=== PATIENT | female | born 1945 | race Caucasian/White ===

== ENCOUNTER 2016-09-22 11:41 | Inpatient (IN) | payer OTHER, MEDICARE ==
[~2016-09-22] VITALS: Ht 167.6 cm; Wt 104.8 kg
[~2016-09-22 11:41] MED LIST: PREG100 PO; TRAM50 PO
[2016-09-22 11:43] VITALS: BP 132/78; PULSE 78; RESP 20; TEMP 97.5; O2SAT 93
[2016-09-22 16:55] LABS: AUTOMATED NEUTROPHIL # 10.5 TH/MM3 (1.8-7.7); BASOPHIL # 0.1 TH/MM3 (0-0.2); BASOPHIL % 0.4 % (0.0-2.0); EOSINOPHIL % 0.1 % (0.0-4.0); HEMATOCRIT 42.7 % (35.0-46.0); HEMO FLAGS DIFF FINAL; LYMPH % 13.7 % (9.0-44.0); MEAN CELL VOLUME 89.1 FL (80.0-100.0); MEAN CORPUSCULAR HEMOGLOBIN 29.7 PG (27.0-34.0); MEAN CORPUSCULAR HGB CONC 33.4 % (32.0-36.0); MONO % 11.9 % (0.0-8.0); NEUT % 73.9 % (16.0-70.0); PLATELET COUNT 274 TH/MM3 (150-450); RED BLOOD COUNT 4.79 MIL/MM3 (4.00-5.30); RED CELL DISTRIBUTION WIDTH 14.1 % (11.6-17.2); WHITE BLOOD COUNT 14.3 TH/MM3 (4.0-11.0)
[2016-09-22 17:02] LABS: ANION GAP 13 MEQ/L (5-15); AST (GOT) 38 U/L (15-37); BICARBONATE 18.7 MEQ/L (21.0-32.0); BLOOD UREA NITROGEN 21 MG/DL (7-18); CHLORIDE 95 MEQ/L (98-107); GLOMERULAR FILTRATION RATE 93 ML/MIN (>89); POTASSIUM 3.4 MEQ/L (3.5-5.1); SODIUM (NA) 127 MEQ/L (136-145)
[2016-09-22 17:05] LABS: ALKALINE PHOSPHATASE 74 U/L (45-117); ALT (GPT) 42 U/L (10-53)
[2016-09-22 17:12] LABS: BLOOD, URINE NEG (NEG); COMMENT (UR) CULTURE INDICATED; CULTURE IF INDICATED CULTURE INDICATED; GLUCOSE,URINE NEG (NEG); KETONE, URINE 10 mg/dL (NEG); MUCUS URINE FEW /lpf (OCC); NITRITE,URINE NEG (NEG); SQUAMOUS EPITHELIAL CELL URINE <1 /hpf (0-5); URINE COLOR YELLOW (YELLW/STRAW)
--- NOTE | 2016-09-22 21:52 | PD ---
HPI Chief Complaint: Psychiatric Symptoms Time Seen by Provider: 21:52 Travel History International Travel<30 days: No Contact w/Intl Traveler<30days: No Traveled to known affect area: No History of Present Illness HPI 71-year-old female with history of schizophrenia, currently not taking any medication, presents to emergency department with a family member for evaluation of hallucinations and panic attacks. Patient states that she has been seeing people that she knows are not there. She insists that four people came into her home last evening. The man with her tells me that they have even placed cameras in her house to prove to her that these people are not coming in. He states she has episodes like this intermittently. Patient states she has been watching "[employer]" and feels as though she is "in the movie." She has been having what she terms panic attacks where she becomes short of breath and has a chest pressure. She states they come out of nowhere. Denies any pain associated with this. Patient denies any illicit drug use. Does not smoke tobacco cigarettes. Does have occasional alcohol consumption. Denies any recent illnesses, fever, chills. No other symptoms to report this time. [facility] Past Medical History Psychiatric: Yes Social History Alcohol Use: Yes Tobacco Use: No Substance Use: No Allergies-Medications (Allergen,Severity, Reaction): Coded Allergies: Codeine (Verified Allergy, Severe, 09/22/16) Reported Meds & Prescriptions Reported Meds & Active Scripts Active No Active Prescriptions or Reported Medications Review of Systems Except as stated in HPI: all other systems reviewed are Neg Physical Exam Narrative GENERAL: Well-nourished female patient, in no acute distress. Patient does seem a bit anxious and worried. She is not certain why she is here one moment and then she does remember why she is here. She is most of the time oriented 3. SKIN: Warm and dry. HEAD: Atraumatic. Normocephalic. EYES: Pupils equal and round. No scleral icterus. No injection or drainage. ENT: No nasal bleeding or discharge. Mucous membranes pink and moist. NECK: Trachea midline. No JVD. CARDIOVASCULAR: Regular rate and rhythm. No murmur appreciated. RESPIRATORY: No accessory muscle use. Clear to auscultation. Breath sounds equal bilaterally. GASTROINTESTINAL: Abdomen soft, non-tender, nondistended. Hepatic and splenic margins not palpable. MUSCULOSKELETAL: No obvious deformities. No clubbing. No cyanosis. No edema. NEUROLOGICAL: Awake and alert. No obvious cranial nerve deficits. Motor grossly within normal limits. PSYCHIATRIC: Anxious mood. Data Data Last Documented VS Vital Signs Date Time Temp Pulse Resp B/P Pulse Ox O2 Delivery O2 Flow Rate FiO2 09/22/16 22:18 20 20 09/22/16 22:18 147/74 98 Room Air 09/22/16 11:43 97.5 Orders Complete Blood Count With Diff (09/22/16 16:08) Comprehensive Metabolic Panel (09/22/16 16:08) Urinalysis - C+S If Indicated (09/22/16 16:08) Urine Culture (09/22/16 16:19) Iv Access Insert/Monitor (09/22/16 21:50) Sodium Chlor 0.9% 1000 Ml Inj (Ns 1000 M (09/22/16 22:00) Ceftriaxone Inj (Rocephin Inj) (09/22/16 22:00) Psych Screen (09/22/16 21:50) Thyroid Stimulating Hormone (09/22/16 22:00) Electrocardiogram (09/22/16 22:00) Ckmb (Isoenzyme) Profile (09/22/16 22:00) D-Dimer (09/22/16 22:00) Troponin I (09/22/16 22:00) Chest, Single Ap (09/22/16 22:00) Lorazepam (Ativan) (09/22/16 22:15) CKMB (09/22/16 16:19) CKMB% (09/22/16 16:19) Ct Brain W/O Iv Contrast(Rout) (09/22/16 ) Aspirin Chew (Aspirin Chew) (09/22/16 23:30) Admit Order (Ed Use Only) (09/23/16 00:49) Consult Neurosurgery (09/23/16 ) Labs Laboratory Tests Test 09/22/16 09/22/16 16:19 23:15 White Blood Count 14.3 TH/MM3 Red Blood Count 4.79 MIL/MM3 Hemoglobin 14.2 GM/DL Hematocrit 42.7 % Mean Corpuscular Volume 89.1 FL Mean Corpuscular Hemoglobin 29.7 PG Mean Corpuscular Hemoglobin 33.4 % Concent Red Cell Distribution Width 14.1 % Platelet Count 274 TH/MM3 Mean Platelet Volume 8.9 FL Neutrophils (%) (Auto) 73.9 % Lymphocytes (%) (Auto) 13.7 % Monocytes (%) (Auto) 11.9 % Eosinophils (%) (Auto) 0.1 % Basophils (%) (Auto) 0.4 % Neutrophils # (Auto) 10.5 TH/MM3 Lymphocytes # (Auto) 2.0 TH/MM3 Monocytes # (Auto) 1.7 TH/MM3 Eosinophils # (Auto) 0.0 TH/MM3 Basophils # (Auto) 0.1 TH/MM3 CBC Comment DIFF FINAL Differential Comment Urine Color YELLOW Urine Turbidity CLEAR Urine pH 6.0 Urine Specific [place] 1.026 Urine Protein 30 mg/dL Urine Glucose (UA) NEG mg/dL Urine Ketones 10 mg/dL Urine Occult Blood NEG Urine Nitrite NEG Urine Bilirubin NEG Urine Urobilinogen LESS THAN 2.0 MG/DL Urine Leukocyte Esterase TRACE Urine RBC 2 /hpf Urine WBC 12 /hpf Urine Squamous Epithelial <1 /hpf Cells Urine Mucus FEW /lpf Microscopic Urinalysis Comment CULTURE INDICATED Sodium Level 127 MEQ/L Potassium Level 3.4 MEQ/L Chloride Level 95 MEQ/L Carbon Dioxide Level 18.7 MEQ/L Anion Gap 13 MEQ/L Blood Urea Nitrogen 21 MG/DL Creatinine 0.63 MG/DL Estimat Glomerular Filtration 93 ML/MIN Rate Random Glucose 117 MG/DL Calcium Level 9.0 MG/DL Total Bilirubin 1.0 MG/DL Aspartate Amino Transf 38 U/L (AST/SGOT) Alanine Aminotransferase 42 U/L (ALT/SGPT) Alkaline Phosphatase 74 U/L Total Creatine Kinase 421 U/L Creatine Kinase MB 15.1 NG/ML Creatine Kinase MB % 3.6 % Troponin I 1.40 NG/ML Total Protein 7.6 GM/DL Albumin 3.8 GM/DL Thyroid Stimulating Hormone 1.850 uIU/ML 3rd Gen D-Dimer Quantitative (PE/DVT) 0.68 MG/L FEU [facility] Medical Decision Making Medical Screen Exam Complete: Yes Emergency Medical Condition: Yes Medical Record Reviewed: Yes Differential Diagnosis Mood disorder versus personality disorder versus substance abuse versus electrolyte abnormality versus cardiac etiology versus intracranial etiology Narrative Course 71-year-old female presents to the emergency department for evaluation of panic attacks and hallucinations. Patient appears without distress. Her vital signs are stable. Neuro exam is nonfocal. Patient does have what she calls a panic attack in front of me where she gasps for air and conscious her chest. It is brief. I discussed the patient maintain physician and feel that a cardiac workup is essential prior to medical clearance for psychiatric screening. CBC is with mild leukocytosis of 14.3. CMP is with moderate hyponatremia of 127. BUN is 21. Troponin is 1.4. TSH is 1.85. D-dimer is 0.68. I discussed the patient again with my attending. She has conversed with cardiology and he advises to treat medically. Prior to starting heparin, we'll CT the patient's brain. CT imaging shows a small focal hemorrhage involving the right temporal lobe with prominent vasogenic edema. Underlying neoplasm cannot be excluded. MRI is recommended for further evaluation. Discussed the patient with Dr. Ibrahim. He requests admission to critical care with a consult placed to him. I discussed the patient with Dr. Butts. Patient will be admitted to the critical care service. Diagnosis Primary Impression: Hemorrhage of right temporal lobe Additional Impressions: Hallucination Hyponatremia Elevated troponin Admitting Information Admitting Physician Requests: Admit Scripts No Active Prescriptions or Reported Meds Condition: Stable Crys Martin Sep 22, 2016 21:52
[2016-09-22] MEDS ORDERED: SODIUM CHLOR 0.9% 1000 ML INJ 1,000 ML IV ONE (22:00)
[2016-09-22] MEDS ORDERED: cefTRIAXone INJ 1,000 MG in SODIUM CHLORIDE 0.9% INJ 100 ML IV ONE (22:00)
[2016-09-22] MEDS ORDERED: LORazepam 1 MG TAB PO ONE (22:15)
--- NOTE | 2016-09-22 22:17 | RADRPT ---
EXAM DATE/TIME: 09/22/2016 22:09 [facility] COMPARISON: No previous studies available for comparison. INDICATIONS : Chest pains. MEDICAL HISTORY : None. SURGICAL HISTORY : None. ENCOUNTER: Initial ACUITY: 1 week PAIN SCORE: 7/10 LOCATION: Bilateral chest FINDINGS: A single view of the chest demonstrates the lungs to be symmetrically aerated without evidence of mas s, infiltrate or effusion. The cardiomediastinal contours are unremarkable. Osseous structures are intact. CONCLUSION: No acute disease. Bon Garcia MD on September 22, 2016 at 22:16 Board Certified Radiologist. This report was verified electronically.
[2016-09-22 22:18] VITALS: BP 147/74; PULSE 77; RESP 22; O2SAT 98
[2016-09-22] MEDS ORDERED: ASPIRIN 81 MG CHEW TAB CHEW ONE (23:30)
[2016-09-22 23:41] LABS: CKMB 15.1 NG/ML (0.5-3.6)
--- NOTE | 2016-09-22 23:55 | PD ---
Physical Exam Narrative I, Dr. Murphy, have reviewed the advance practice practitioner's documentation and am in agreement, met with the patient face to face, made the diagnosis, and the medical decision making was done by me. *My assessment and Findings: Patient is a 71-year-old female who comes in because she has been having panic attacks and hallucinations. She believes people have been in her house uninvited. She says she has been feeling very anxious, and had some pressure in her chest. She also says she has felt knots in her stomach. Currently she denies any chest pain. Patient was very anxious on arrival, she is given Ativan. She is alert and oriented 3. Heart is regular in rate and rhythm, lungs are clear to auscultation. Data Data Last Documented VS Vital Signs Date Time Temp Pulse Resp B/P Pulse Ox O2 Delivery O2 Flow Rate FiO2 09/22/16 22:18 20 20 09/22/16 22:18 147/74 98 Room Air 09/22/16 11:43 97.5 Orders Complete Blood Count With Diff (09/22/16 16:08) Comprehensive Metabolic Panel (09/22/16 16:08) Urinalysis - C+S If Indicated (09/22/16 16:08) Urine Culture (09/22/16 16:19) Iv Access Insert/Monitor (09/22/16 21:50) Sodium Chlor 0.9% 1000 Ml Inj (Ns 1000 M (09/22/16 22:00) Ceftriaxone Inj (Rocephin Inj) (09/22/16 22:00) Psych Screen (09/22/16 21:50) Thyroid Stimulating Hormone (09/22/16 22:00) Electrocardiogram (09/22/16 22:00) Ckmb (Isoenzyme) Profile (09/22/16 22:00) D-Dimer (09/22/16 22:00) Troponin I (09/22/16 22:00) Chest, Single Ap (09/22/16 22:00) Lorazepam (Ativan) (09/22/16 22:15) CKMB (09/22/16 16:19) CKMB% (09/22/16 16:19) Ct Brain W/O Iv Contrast(Rout) (09/22/16 ) Aspirin Chew (Aspirin Chew) (09/22/16 23:30) Admit Order (Ed Use Only) (09/23/16 00:49) Consult Neurosurgery (09/23/16 ) Labs Laboratory Tests Test 09/22/16 09/22/16 16:19 23:15 White Blood Count 14.3 TH/MM3 Red Blood Count 4.79 MIL/MM3 Hemoglobin 14.2 GM/DL Hematocrit 42.7 % Mean Corpuscular Volume 89.1 FL Mean Corpuscular Hemoglobin 29.7 PG Mean Corpuscular Hemoglobin 33.4 % Concent Red Cell Distribution Width 14.1 % Platelet Count 274 TH/MM3 Mean Platelet Volume 8.9 FL Neutrophils (%) (Auto) 73.9 % Lymphocytes (%) (Auto) 13.7 % Monocytes (%) (Auto) 11.9 % Eosinophils (%) (Auto) 0.1 % Basophils (%) (Auto) 0.4 % Neutrophils # (Auto) 10.5 TH/MM3 Lymphocytes # (Auto) 2.0 TH/MM3 Monocytes # (Auto) 1.7 TH/MM3 Eosinophils # (Auto) 0.0 TH/MM3 Basophils # (Auto) 0.1 TH/MM3 CBC Comment DIFF FINAL Differential Comment Urine Color YELLOW Urine Turbidity CLEAR Urine pH 6.0 Urine Specific [place] 1.026 Urine Protein 30 mg/dL Urine Glucose (UA) NEG mg/dL Urine Ketones 10 mg/dL Urine Occult Blood NEG Urine Nitrite NEG Urine Bilirubin NEG Urine Urobilinogen LESS THAN 2.0 MG/DL Urine Leukocyte Esterase TRACE Urine RBC 2 /hpf Urine WBC 12 /hpf Urine Squamous Epithelial <1 /hpf Cells Urine Mucus FEW /lpf Microscopic Urinalysis Comment CULTURE INDICATED Sodium Level 127 MEQ/L Potassium Level 3.4 MEQ/L Chloride Level 95 MEQ/L Carbon Dioxide Level 18.7 MEQ/L Anion Gap 13 MEQ/L Blood Urea Nitrogen 21 MG/DL Creatinine 0.63 MG/DL Estimat Glomerular Filtration 93 ML/MIN Rate Random Glucose 117 MG/DL Calcium Level 9.0 MG/DL Total Bilirubin 1.0 MG/DL Aspartate Amino Transf 38 U/L (AST/SGOT) Alanine Aminotransferase 42 U/L (ALT/SGPT) Alkaline Phosphatase 74 U/L Total Creatine Kinase 421 U/L Creatine Kinase MB 15.1 NG/ML Creatine Kinase MB % 3.6 % Troponin I 1.40 NG/ML Total Protein 7.6 GM/DL Albumin 3.8 GM/DL Thyroid Stimulating Hormone 1.850 uIU/ML 3rd Gen D-Dimer Quantitative (PE/DVT) 0.68 MG/L FEU [facility] Supervised Visit with ALYCIA: Yes Interpretation(s) ECG shows normal sinus rhythm at 67. There is ST elevation in lead V2 of 2.5 mm. There is slight elevation of V1 and V3 of only 0.5 mm. Narrative Course Patient is a 71-year-old female who comes in due to hallucinations. She has also been having panic attacks and pressure in her chest. IV established, labs sent. Labs concerning for sodium of 127. Troponin is elevated to 1.4. Patient given aspirin. I spoke with Dr. Pyle regarding the patient and showed him the EKG. He advises medical management at this time. CT head performed shows small hemorrhage with large edema. Heparin held. Dr. Ibrahim of neurosurgery consulted. Patient admitted to ICU for further management. Admitting Information Admitting Physician Requests: Admit Scripts No Active Prescriptions or Reported Meds Lorna Murphy MD Sep 22, 2016 23:55
[2016-09-23] VITALS (12 sets, daily range): BP systolic 108–131; BP diastolic 59–87; PULSE 59–118; RESP 18–24; TEMP 97.4–98.3; O2SAT 94–100
--- NOTE | 2016-09-23 00:19 | RADRPT ---
EXAM DATE/TIME: 09/22/2016 23:33 [facility] COMPARISON: No previous studies available for comparison. INDICATIONS : Hallucinations RADIATION DOSE: 56.35 CTDIvol (mGy) MEDICAL HISTORY : Schizophrenic. SURGICAL HISTORY : Tonsillectomy. Hysterectomy. ENCOUNTER: Initial ACUITY: 1 day PAIN SCALE: 0/10 LOCATION: Bilateral cranial TECHNIQUE: Multiple contiguous axial images were obtained of the head. Using automated exposure control and adj ustment of the mA and/or kV according to patient size, radiation dose was kept as low as reasonably a chievable to obtain optimal diagnostic quality images. FINDINGS: There is vasogenic edema involving the right temporal lobe extending into the right occipital lobe wi th small focal area of hemorrhage measuring no more than 5 mm in diameter into discrete locations in the temporal lobe. There is mass effect on the atrium of the right lateral ventricle. The overall are a of edema measures 6 CM by 3 CM. There are no signs of herniation. Posterior fossa structures are unremarkable. Large cisterna magna is present. CONCLUSION: 1. Small focal hemorrhage involving the right temporal lobe with prominent vasogenic edema. Underlyin g neoplasm is not excluded. MRI is recommended for further evaluation if clinically indicated. Benitez Choudhury MD on September 23, 2016 at 0:15 Board Certified Radiologist. This report was verified electronically.
--- NOTE | 2016-09-23 02:50 | HHI.HP ---
HPI Service Critical Care Medicine Primary Care Physician Unknown Admission Diagnosis AMS; ICH; elevated troponin; hyponatremia; schizoeffective Diagnosis: Travel History International Travel<30 Days: No Contact w/Intl Traveler <30 Da: No Traveled to Known Affected Are: No History of Present Illness 71-year-old female who reportedly was diagnosed with schizophrenia but who does not take any medications chronically presented to [facility] with one week history of paranoia and hallucinations. She said she believed people were coming into her house uninvited. She drove to her ex-daughter in-laws house and this woman's new was there and tried to redirect her as she reportedly has a h/o intermittent paranoid delusions. He took her back to her home yesterday but she was having intermittent episodes of panic so she was brought in for psychiatry evaluation. While doing psychiatric clearance, ED [employer] and physician discovered that she had elevated troponin of 1.4 with normal CKMB fraction. Creatinine is normal at 0.63. Case was discussed with cardiology who recommended medical management including heparin. Before initiation of heparin, CT brain was obtained. This demonstrated small focal hemorrhage in right temporal lobe with large amount of vasogenic edema (without shift). Patient states she has had a bifrontal headache for about a week. No n/v/ seizures. She does state that she falls frequently (2-3 times in last 2 months) but denies head trauma. She states she has noticed some left leg weakness for about a week and she states she fell in [facility] about a week ago due to leg weakness. She has noticed some decreased sensation on the left leg as well. She denies any changes in vision or speech. She does have dysarthric speech, but she states this is chronic. She states she has been having intermittent "panic attacks" with episodes of SOB and discomfort in her chest. She states this improves when her family tries to calm her down. She denies exertional CP/ SOB or hemoptysis. She has noticed BLE pedal edema ~ 1 week. She denies prior h/ o stroke. States she saw Dr. Antonio with neurology in the past. She has atrial fibrillation but denies having been on anticoagulation Review of Systems Cardiovascular: COMPLAINS OF: Chest pain, Lower Extremity Edema Neurologic: COMPLAINS OF: Headache, Localized weakness, Poor Balance Psychiatric: COMPLAINS OF: Anxiety, Hallucinations, Delusions Past Family Social History Allergies: Coded Allergies: Codeine (Verified Allergy, Severe, 09/22/16) Past Medical History Schizophrenia - she states she was diagnosed in but has never been compliant with meds. Tobacco abuse Codeine intolerancecauses vomiting Past Surgical History face lift BTL Total hysterectomy Reported Medications She states she is not on any medications Family History Father of an [place] at age 95 Paternal grandmother had gastric cancer in her 60s. No other family history of cancer. No family history of stroke Social History She states that she smoked 3 packs of cigarettes per day since she was age 10. She states she quit in 1993. Denies use of alcohol or illicit drugs She lives alone Physical Exam Vital Signs Vital Signs Date Time Temp Pulse Resp B/P Pulse Ox O2 Delivery O2 Flow Rate FiO2 09/22/16 22:18 20 20 09/22/16 22:18 77 22 147/74 98 Room Air 09/22/16 11:43 97.5 78 20 132/78 93 Room Air Physical Exam Temp 97.5 pulse 116 respirations 20 blood pressure 108/87 sats 99% on room air GENERAL: Well-nourished, well-developed patient who is sitting up in ED [facility] , conversant, intermittently appears paranoid and begins breathing fast. SKIN: Warm and dry. HEAD: Atraumatic. Normocephalic. EYES: Pupils equal and round, 4mm reactive bilaterally to 2 mm.. No scleral icterus. No injection or drainage. ENT: No nasal bleeding or discharge. Mucous membranes pink and moist. NECK: Trachea midline. No JVD. CARDIOVASCULAR: irregularly irregular, tachycardic 120s to 130s. No murmurs rubs or gallops. RESPIRATORY: No accessory muscle use. Clear to auscultation. Breath sounds equal bilaterally. On RA. GASTROINTESTINAL: Abdomen soft, non-tender, nondistended. Bowel sounds present MUSCULOSKELETAL: Extremities without clubbing, cyanosis. Bipedal edema ~1+ NEUROLOGICAL: Awake and alert, able to answer questions of orientation appropriately. No facial droop. Sensation intact on face, normal tongue protrusion, EOMI. Visual field defect to confrontation in her left visual field. Strength 5/5 BUE. No pronator drift. LLE 4+/5 plantar and dorsiflexion. RLE 5/5 strength.Sensation intact. Babinski tickles and she moves her foot, no abnormal reflex. PSYCH: PAranoid delusions of people coming into her home uninvited.+ Hallucinations. Denies SI/HI. Laboratory Laboratory Tests Test 09/22/16 09/22/16 16:19 23:15 White Blood Count 14.3 Red Blood Count 4.79 Hemoglobin 14.2 Hematocrit 42.7 Mean Corpuscular Volume 89.1 Mean Corpuscular Hemoglobin 29.7 Mean Corpuscular Hemoglobin 33.4 Concent Red Cell Distribution Width 14.1 Platelet Count 274 Mean Platelet Volume 8.9 Neutrophils (%) (Auto) 73.9 Lymphocytes (%) (Auto) 13.7 Monocytes (%) (Auto) 11.9 Eosinophils (%) (Auto) 0.1 Basophils (%) (Auto) 0.4 Neutrophils # (Auto) 10.5 Lymphocytes # (Auto) 2.0 Monocytes # (Auto) 1.7 Eosinophils # (Auto) 0.0 Basophils # (Auto) 0.1 CBC Comment DIFF FINAL Differential Comment Urine Color YELLOW Urine Turbidity CLEAR Urine pH 6.0 Urine Specific [place] 1.026 Urine Protein 30 Urine Glucose (UA) NEG Urine Ketones 10 Urine Occult Blood NEG Urine Nitrite NEG Urine Bilirubin NEG Urine Urobilinogen LESS THAN 2.0 Urine Leukocyte Esterase TRACE Urine RBC 2 Urine WBC 12 Urine Squamous Epithelial <1 Cells Urine Mucus FEW Microscopic Urinalysis Comment CULTURE INDICATED Sodium Level 127 Potassium Level 3.4 Chloride Level 95 Carbon Dioxide Level 18.7 Anion Gap 13 Blood Urea Nitrogen 21 Creatinine 0.63 Estimat Glomerular Filtration 93 Rate Random Glucose 117 Calcium Level 9.0 Total Bilirubin 1.0 Aspartate Amino Transf 38 (AST/SGOT) Alanine Aminotransferase 42 (ALT/SGPT) Alkaline Phosphatase 74 Total Creatine Kinase 421 Creatine Kinase MB 15.1 Creatine Kinase MB % 3.6 Troponin I 1.40 Total Protein 7.6 Albumin 3.8 Thyroid Stimulating Hormone 1.850 3rd Gen D-Dimer Quantitative (PE/DVT) 0.68 Date/Time Procedure Status Source Growth 09/22/16 16:19 Urine Culture Received Urine Clean Catch Pending Result Diagram: 09/22/16 1619 09/22/16 1619 Assessment and Plan Assessment and Plan NEURO: Acute R temporal lobe hemorrhage with edema. Schizophrenia Anxiety Obtain lipids/HgbA1c, Echo. Unclear if this represents subacute stroke with secondary hemorrhage. ? Underlying mass with vasogenic edema. Will check MRI/MRA brain. She clinically seems relatively stable with subacute symptoms. Consider decadron if e/o mass based on MRI. Maintain SBP <160 Dr. Ibrahim consulted. RESP: Tobacco abuse She is on room air CV: Atrial fibrillation Elevated troponin -?neurogenic She received aspirin 324 in the ED. Not a candidate further antiplatelets due to intracerebral hemorrhage. Cardizem drip for rate control of A fib Will use labetalol/hydralazine as needed to maintain systolic blood pressure less than 160. GI: Nothing by mouth. Speech therapy to evaluate swallow FEN/RENAL: Hyponatremia Hypokalemia She has received 1 L normal saline in the emergency department. Will follow-up sodium ID: ?UTI Urinalysis shows 12 WBCs and trace leukocyte esterase. She received Rocephin in the emergency department. Will continue Rocephin 1 g IV every 24 hours and follow up urine culture. HEME: Monitor CBC. Coags are normal D-dimer is elevated of unclear significance. She does have some pedal edema. Will check bilateral lower extremity ultrasound to evaluate for DVT. PE seems less likely, and she is not a candidate for anticoagulation at this time so will defer further imaging currently. ENDO: Check hemoglobin A1c. TSH is normal. Check random cortisol given her hyponatremia PROPH: SCDs and teds for DVT prophylaxis. Pharmacologic DVT prophylaxis contraindicated due to intracerebral hemorrhage. Protonix 40 mg IV daily for stress ulcer prophylaxis. ACCESS: Peripheral IV providing adequate access at this time. She is hyponatremic with vasogenic edema. We'll need to consider central venous line if she has worsening hyponatremia and in need of hypertonic fluids. Discussed with ED provider, Mario. Patient updated at bedside regarding current findings and plan of care. CCT 60 minutes exclusive of separately billable procedures. Isabel Butts MD Sep 23, 2016 02:50
[2016-09-23] MEDS ORDERED: MAGNESIUM SULFATE INJ 2 GM in SODIUM CHLORIDE 0.9% INJ 96 ML IV PRN (03:00)
[2016-09-23] MEDS ORDERED: POTASSIUM PHOSPHATE MONOBASIC 500 MG TAB PO/TUBE PRN (03:00)
[2016-09-23] MEDS ORDERED: GLUCAGON 1 MG/ML VIAL OTHER PRN (03:00)
[2016-09-23] MEDS ORDERED: POTASSIUM CHLOR 20 MEQ PREMIX 100 ML IV PRN (03:00)
[2016-09-23] MEDS ORDERED: POTASSIUM PHOSPHATE MONOBASIC 500 MG TAB PO PRN (03:00)
[2016-09-23] MEDS: INSULIN ASPART SUPPLEMENTAL SCALE SQ SCH ×6 (03:00→23:00)
[2016-09-23] MEDS ORDERED: SODIUM PHOSPHATE INJ 30 MMOL in SODIUM CHLOR 0.9% 250 ML INJ 240 ML IV PRN (03:00)
[2016-09-23] MEDS ORDERED: niCARdipine INJ 25 MG in SODIUM CHLOR 0.9% 250 ML INJ 250 ML IV SCH (03:00)
[2016-09-23] MEDS ORDERED: DEXTROSE 50% IN WATER 50 ML VIAL(D50) IV PUSH PRN (03:00)
[2016-09-23] MEDS ORDERED: MAGNESIUM SULFATE INJ 4 GM in SODIUM CHLORIDE 0.9% INJ 92 ML IV PRN (03:00)
[2016-09-23] MEDS ORDERED: MAGNESIUM OXIDE 400 MG TAB PO PRN (03:00)
[2016-09-23] MEDS ORDERED: POTASSIUM CL 40 MEQ/30 ML LIQ UDC PO/TUBE PRN ×2 (03:00)
[2016-09-23] MEDS ORDERED: POTASSIUM PHOSPHATE INJ 30 MMOL in SODIUM CHLOR 0.9% 250 ML INJ 250 ML IV PRN (03:00)
[2016-09-23] MEDS ORDERED: POTASSIUM CHLOR 40 MEQ PREMIX 100 ML IV PRN ×2 (03:00)
[2016-09-23] MEDS ORDERED: RESP: ALBUTEROL 2.5 MG/3 ML NEB (PRN) INH (03:30)
[2016-09-23] MEDS ORDERED: LORazepam 2 MG/ML VIAL IV PUSH PRN (03:30)
[2016-09-23] MEDS ORDERED: ONDANSETRON HCL 4 MG/2 ML VIAL IV PRN (03:30)
[2016-09-23] MEDS ORDERED: SODIUM CHLORIDE 0.9% FLUSH 5 ML FLUSH IV FLUSH PRN (03:30)
[2016-09-23] MEDS ORDERED: DILTIAZEM INJ 125 MG in SODIUM CHLORIDE 0.9% INJ 100 ML IV SCH (03:30)
[2016-09-23] MEDS ORDERED: DILTIAZEM HCL 25 MG/5 ML VIAL IVP ONE (03:30)
[2016-09-23] MEDS ORDERED: MISCELLANEOUS NURSING INFORMATION XX SCH (03:30)
[2016-09-23] MEDS ORDERED: CHLORHEXIDINE GLUCONATE 2 % 1 PACK (2 CLOTHS) TOP PRN (03:30)
[2016-09-23] MEDS ORDERED: LABETALOL HCL 100 MG/20 ML VIAL IV PUSH PRN (03:30)
[2016-09-23] MEDS: RESP: ALBUTEROL 2.5 MG/IPRATROPIUM 0.5 MG NEB (SCH) INH ×4 (03:58→20:12)
[2016-09-23] MEDS: CHLORHEXIDINE GLUCONATE 2 % 1 PACK (2 CLOTHS) TOP SCH (04:00)
[2016-09-23 04:01] LABS: AMPHETAMINE, URINE NEG (NEG); BARBITURATES, URINE NEG (NEG); COCAINE, URINE NEG (NEG)
[2016-09-23] MEDS: SODIUM CHLOR 0.9% 1000 ML INJ 1,000 ML IV SCH ×2 (04:20→22:14)
[2016-09-23] MEDS: POTASSIUM CHLOR 20 MEQ PREMIX 100 ML IV PRN (04:26)
[2016-09-23 04:28] LABS: BICARBONATE 23.8 MEQ/L (21.0-32.0); POTASSIUM 3.1 MEQ/L (3.5-5.1)
--- NOTE | 2016-09-23 08:24 | PD.CONS ---
(Dinh Ibrahim MD) HPI Consult Requested By Primary Care Physician Unknown (Dinh Ibrahim MD) Service NRS Consult Requested By ED Reason for Consult temporal hematoma History of Present Illness Ms. Bay is a 71 year old female who presented to [facility] with acute delirium. She had reported peopler were coming to her house, she was having panic attacks. She was brought to [place] by her family member. A CT Brain showed a small focal hemorrhage in right temporal lobe with large amount of vasogenic edema. No known history of brain masses or tumors. She also reports of recently having headaches, as well as some weakness on the left side. (Joanne Mariano) Review of Systems Constitutional: DENIES: Fever Eyes: DENIES: Diplopia Respiratory: DENIES: Apneas, Hemoptysis, Shortness of breath Cardiovascular: DENIES: Chest pain Neurologic: COMPLAINS OF: Headache, Localized weakness Psychiatric: COMPLAINS OF: Anxiety, Hallucinations (Joanne Mariano) Past Family Social History Allergies: Coded Allergies: Codeine (Verified Allergy, Severe, 09/22/16) Past Medical History Schizophrenia Atrial Fibrillation not on anticoagulation Reported Medications Current Medications Medications (Trade) Dose Ordered Sig/Hardeep Route PRN Reason Start Time Stop Time Status Last Admin Dose Admin Dextrose (D50w (Vial) Inj) 25 ml UNSCH PRN IV PUSH HYPOGLYCEMIA-SEE COMMENTS 09/23/16 03:00 Glucagon (Glucagon Inj) 1 mg UNSCH PRN OTHER HYPOGLYCEMIA-SEE COMMENTS 09/23/16 03:00 Insulin Aspart 1 1 Q4H SQ 09/23/16 03:00 Potassium Chloride 100 ml @ 50 mls/hr Q2H PRN IV For Potassium 2.8 - 3.2 mEq/L 09/23/16 03:00 Potassium Chloride (KCl 20 Meq Premix Inj) 100 ml @ 50 mls/hr Q2H PRN IV For Potassium 2.8 - 3.2 mEq/L 09/23/16 03:00 Potassium Chloride 40 meq 40 meq UNSCH PRN PO/TUBE For Potassium 3.3 - 3.5 mEq/L 09/23/16 03:00 Potassium Chloride 100 ml @ 25 mls/hr UNSCH PRN IV For Potassium 3.3 - 3.5 mEq/L 09/23/16 03:00 Potassium Chloride 100 ml @ 50 mls/hr Q2H PRN IV For Potassium 3.3 - 3.5 mEq/L 09/23/16 03:00 09/23/16 04:26 Magnesium Sulfate/ Sodium Chloride (Magnesium Sulfate Inj/NS Inj) 100 ml @ 50 mls/hr UNSCH PRN IV For Magnesium 0.9 - 1.1 mg/dL 09/23/16 03:00 Magnesium Oxide 800 mg 800 mg UNSCH PRN PO For Magnesium 1.2 - 1.6 mg/dL 09/23/16 03:00 Magnesium Sulfate/ Sodium Chloride (Magnesium Sulfate Inj/NS Inj) 100 ml @ 50 mls/hr UNSCH PRN IV For Magnesium 1.2 - 1.6 mg/dL 09/23/16 03:00 Potassium Phosphate 2000 mg 2,000 mg Q4H PRN PO For Phosphorus < 2.5 mg/dL 09/23/16 03:00 Sodium Phosphate/ Sodium Chloride (Sodium Phosphate Inj/NS 250 ml Inj) 250 ml @ 42 mls/hr UNSCH PRN IV For Phosphorus < 2.5 mg/dL 09/23/16 03:00 Potassium Chloride (KCl 40 Meq/30 ml Liq) 40 meq UNSCH PRN PO/TUBE SEE LABEL COMMENTS 09/23/16 03:00 Potassium Phosphate 2000 mg 2,000 mg UNSCH PRN PO/TUBE SEE LABEL COMMENTS 09/23/16 03:00 Potassium Phosphate 30 mmol/ Sodium Chloride 260 ml @ 42 mls/hr UNSCH PRN IV SEE LABEL COMMENTS 09/23/16 03:00 Diltiazem HCl 125 mg/Sodium Chloride 125 ml @ 0 mls/hr TITRATE IV 09/23/16 03:30 09/23/16 04:21 Ceftriaxone Sodium/Sodium Chloride (Rocephin Inj/NS Inj) 100 ml @ 200 mls/hr Q24H IV 09/23/16 22:00 Hydralazine HCl (Apresoline Inj) 10 mg Q4H PRN IV PUSH SBP >160 09/23/16 03:30 Labetalol HCl (Trandate Inj) 10 mg Q4H PRN IV PUSH SBP >160 09/23/16 03:30 Lorazepam (Ativan Inj) 0.5 mg Q4H PRN IV PUSH ANXIETY 09/23/16 03:30 Lorazepam 1 mg 1 mg ONCE PRN IV PUSH NEEDED FOR ANXIETY DURING MRI 09/23/16 03:30 09/24/16 03:29 09/23/16 09:27 Sodium Chloride (NS 1000 ml Inj) 1,000 ml @ 50 mls/hr Q20H IV 09/23/16 03:25 09/23/16 04:20 IV Flush (NS Flush) 2 ml UNSCH PRN IV FLUSH FLUSH AFTER USING IV ACCESS 09/23/16 03:30 IV Flush (NS Flush) 2 ml BID IV FLUSH 09/23/16 09:00 09/23/16 09:00 Pantoprazole Sodium (Protonix Inj) 40 mg DAILY IV 09/23/16 09:00 09/23/16 09:27 Ondansetron HCl (Zofran Inj) 4 mg Q6H PRN IV NAUSEA OR VOMITING 09/23/16 03:30 Miscellaneous Information 1 Q361D XX 09/23/16 03:30 Chlorhexidine Gluconate (Chlorhexidine 2% Cloth) 3 pack Taper DAILY@04 TOP 09/23/16 04:00 09/19/17 03:59 09/23/16 04:00 Chlorhexidine Gluconate (Chlorhexidine 2% Cloth) 3 pack UNSCH PRN TOP HYGIENIC CARE 09/23/16 03:30 Dexamethasone Sodium Phosphate (Decadron Inj) 10 mg Q6HR IV PUSH 09/23/16 13:15 09/23/16 13:46 Active Ordered Medications Current Medications Medications (Trade) Dose Ordered Sig/Hardeep Route PRN Reason Start Time Stop Time Status Last Admin Dose Admin Dextrose (D50w (Vial) Inj) 25 ml UNSCH PRN IV PUSH HYPOGLYCEMIA-SEE COMMENTS 09/23/16 03:00 Glucagon (Glucagon Inj) 1 mg UNSCH PRN OTHER HYPOGLYCEMIA-SEE COMMENTS 09/23/16 03:00 Insulin Aspart 1 1 Q4H SQ 09/23/16 03:00 Potassium Chloride 100 ml @ 50 mls/hr Q2H PRN IV For Potassium 2.8 - 3.2 mEq/L 09/23/16 03:00 Potassium Chloride (KCl 20 Meq Premix Inj) 100 ml @ 50 mls/hr Q2H PRN IV For Potassium 2.8 - 3.2 mEq/L 09/23/16 03:00 Potassium Chloride 40 meq 40 meq UNSCH PRN PO/TUBE For Potassium 3.3 - 3.5 mEq/L 09/23/16 03:00 Potassium Chloride 100 ml @ 25 mls/hr UNSCH PRN IV For Potassium 3.3 - 3.5 mEq/L 09/23/16 03:00 Potassium Chloride 100 ml @ 50 mls/hr Q2H PRN IV For Potassium 3.3 - 3.5 mEq/L 09/23/16 03:00 09/23/16 04:26 Magnesium Sulfate/ Sodium Chloride (Magnesium Sulfate Inj/NS Inj) 100 ml @ 50 mls/hr UNSCH PRN IV For Magnesium 0.9 - 1.1 mg/dL 09/23/16 03:00 Magnesium Oxide 800 mg 800 mg UNSCH PRN PO For Magnesium 1.2 - 1.6 mg/dL 09/23/16 03:00 Magnesium Sulfate/ Sodium Chloride (Magnesium Sulfate Inj/NS Inj) 100 ml @ 50 mls/hr UNSCH PRN IV For Magnesium 1.2 - 1.6 mg/dL 09/23/16 03:00 Potassium Phosphate 2000 mg 2,000 mg Q4H PRN PO For Phosphorus < 2.5 mg/dL 09/23/16 03:00 Sodium Phosphate/ Sodium Chloride (Sodium Phosphate Inj/NS 250 ml Inj) 250 ml @ 42 mls/hr UNSCH PRN IV For Phosphorus < 2.5 mg/dL 09/23/16 03:00 Potassium Chloride (KCl 40 Meq/30 ml Liq) 40 meq UNSCH PRN PO/TUBE SEE LABEL COMMENTS 09/23/16 03:00 Potassium Phosphate 2000 mg 2,000 mg UNSCH PRN PO/TUBE SEE LABEL COMMENTS 09/23/16 03:00 Potassium Phosphate 30 mmol/ Sodium Chloride 260 ml @ 42 mls/hr UNSCH PRN IV SEE LABEL COMMENTS 09/23/16 03:00 Diltiazem HCl 125 mg/Sodium Chloride 125 ml @ 0 mls/hr TITRATE IV 09/23/16 03:30 09/23/16 04:21 Ceftriaxone Sodium/Sodium Chloride (Rocephin Inj/NS Inj) 100 ml @ 200 mls/hr Q24H IV 09/23/16 22:00 Hydralazine HCl (Apresoline Inj) 10 mg Q4H PRN IV PUSH SBP >160 09/23/16 03:30 Labetalol HCl (Trandate Inj) 10 mg Q4H PRN IV PUSH SBP >160 09/23/16 03:30 Lorazepam (Ativan Inj) 0.5 mg Q4H PRN IV PUSH ANXIETY 09/23/16 03:30 Lorazepam 1 mg 1 mg ONCE PRN IV PUSH NEEDED FOR ANXIETY DURING MRI 09/23/16 03:30 09/24/16 03:29 09/23/16 09:27 Sodium Chloride (NS 1000 ml Inj) 1,000 ml @ 50 mls/hr Q20H IV 09/23/16 03:25 09/23/16 04:20 IV Flush (NS Flush) 2 ml UNSCH PRN IV FLUSH FLUSH AFTER USING IV ACCESS 09/23/16 03:30 IV Flush (NS Flush) 2 ml BID IV FLUSH 09/23/16 09:00 09/23/16 09:00 Pantoprazole Sodium (Protonix Inj) 40 mg DAILY IV 09/23/16 09:00 09/23/16 09:27 Ondansetron HCl (Zofran Inj) 4 mg Q6H PRN IV NAUSEA OR VOMITING 09/23/16 03:30 Miscellaneous Information 1 Q361D XX 09/23/16 03:30 Chlorhexidine Gluconate (Chlorhexidine 2% Cloth) 3 pack Taper DAILY@04 TOP 09/23/16 04:00 09/19/17 03:59 09/23/16 04:00 Chlorhexidine Gluconate (Chlorhexidine 2% Cloth) 3 pack UNSCH PRN TOP HYGIENIC CARE 09/23/16 03:30 Dexamethasone Sodium Phosphate (Decadron Inj) 10 mg Q6HR IV PUSH 09/23/16 13:15 09/23/16 13:46 Family History Father suffered MD Social History History of previous tobacco use, no reports of illicit or etoh abuse (Joanne Mariano) Physical Exam Vital Signs Vital Signs Date Time Temp Pulse Resp B/P Pulse Ox O2 Delivery O2 Flow Rate FiO2 09/23/16 06:00 59 09/23/16 05:19 90 09/23/16 05:19 98.0 90 22 128/69 97 09/23/16 02:51 98.1 118 18 108/87 99 Room Air 09/22/16 22:18 20 20 09/22/16 22:18 77 22 147/74 98 Room Air 09/22/16 11:43 97.5 78 20 132/78 93 Room Air Laboratory Laboratory Tests Test 09/22/16 09/22/16 09/23/16 09/23/16 16:19 23:15 03:45 04:45 White Blood Count 14.3 Red Blood Count 4.79 Hemoglobin 14.2 Hematocrit 42.7 Mean Corpuscular Volume 89.1 Mean Corpuscular Hemoglobin 29.7 Mean Corpuscular Hemoglobin 33.4 Concent Red Cell Distribution Width 14.1 Platelet Count 274 Mean Platelet Volume 8.9 Neutrophils (%) (Auto) 73.9 Lymphocytes (%) (Auto) 13.7 Monocytes (%) (Auto) 11.9 Eosinophils (%) (Auto) 0.1 Basophils (%) (Auto) 0.4 Neutrophils # (Auto) 10.5 Lymphocytes # (Auto) 2.0 Monocytes # (Auto) 1.7 Eosinophils # (Auto) 0.0 Basophils # (Auto) 0.1 CBC Comment DIFF FINAL Differential Comment Urine Color YELLOW Urine Turbidity CLEAR Urine pH 6.0 Urine Specific [place] 1.026 Urine Protein 30 Urine Glucose (UA) NEG Urine Ketones 10 Urine Occult Blood NEG Urine Nitrite NEG Urine Bilirubin NEG Urine Urobilinogen LESS THAN 2.0 Urine Leukocyte Esterase TRACE Urine RBC 2 Urine WBC 12 Urine Squamous Epithelial <1 Cells Urine Mucus FEW Microscopic Urinalysis Comment CULTURE INDICATED Sodium Level 127 129 Potassium Level 3.4 3.1 Chloride Level 95 96 Carbon Dioxide Level 18.7 23.8 Anion Gap 13 9 Blood Urea Nitrogen 21 17 Creatinine 0.63 0.56 Estimat Glomerular Filtration 93 106 Rate Random Glucose 117 113 Calcium Level 9.0 8.3 Total Bilirubin 1.0 Aspartate Amino Transf 38 (AST/SGOT) Alanine Aminotransferase 42 (ALT/SGPT) Alkaline Phosphatase 74 Total Creatine Kinase 421 Creatine Kinase MB 15.1 Creatine Kinase MB % 3.6 Troponin I 1.40 Total Protein 7.6 Albumin 3.8 Thyroid Stimulating Hormone 1.850 3rd Gen Urine Opiates Screen NEG Urine Barbiturates Screen NEG Urine Amphetamines Screen NEG Urine Benzodiazepines Screen NEG Urine Cocaine Screen NEG Urine Cannabinoids Screen NEG D-Dimer Quantitative (PE/DVT) 0.68 Serum Osmolality 271 B-Type Natriuretic Peptide 851 Random Cortisol 49.9 Nasal Screen MRSA (PCR) NEGATIVE Date/Time Procedure Status Source Growth 09/22/16 16:19 Urine Culture Received Urine Clean Catch Pending (Dinh Ibrahim MD) Result Diagram: 09/22/16 1619 09/23/16 0345 Imaging Last Impressions Lower Extremity Ultrasound 09/23/16 0000 Signed Impressions: Service Date/Time: Friday, September 23, 2016 11:17 - CONCLUSION: Negative exam with no evidence of deep venous thrombosis. Alo Barton MD Chest X-Ray 09/22/16 2200 Signed Impressions: Service Date/Time: September 22:09 - CONCLUSION: No acute disease. Bon Garcia MD Head CT 09/22/16 0000 Signed Impressions: Service Date/Time: , September 22, 2016 23:33 - CONCLUSION: 1. Small focal hemorrhage involving the right temporal lobe with prominent vasogenic edema. Underlying neoplasm is not excluded. MRI is recommended for further evaluation if clinically indicated. Benitez Choudhury MD (Joanne Mariano) Attending Statement Neuro. I have reviewed her clinical and radiological findings. neuro checks in a serial fashion. I suspect an underlying neoplasm. recommend MRI brain with an without contrast. Respiratory. pulmonary toilette, nasotracheal suction, and breathing treatments with nebulizers. PT and OT Nutrition. oral diet Renal. monitor closely urine output, BUN and creatinine Endocrine. Monitor serial Acu checks and SSI as needed in detail ID monitor for signs of infection Protonix for stress ulcer prophylaxis Will check bilateral lower extremity ultrasound to evaluate for DVT. Mejia ordoñez and SCD's for DVT prophylaxis (Dinh Ibrahim MD) Dinh Ibrahim MD Sep 23, 2016 08:24 Joanne Mariano Sep 23, 2016 16:31
[2016-09-23] MEDS: SODIUM CHLORIDE 0.9% FLUSH 5 ML FLUSH IV FLUSH SCH ×2 (09:00→20:23)
[2016-09-23] MEDS: PANTOPRAZOLE SODIUM 40 MG VIAL IV SCH (09:27)
--- NOTE | 2016-09-23 12:14 | RADRPT ---
EXAM DATE/TIME: 09/23/2016 11:17 [facility] COMPARISON: No previous studies available for comparison. INDICATIONS : Swelling in bilateral lower extremities. MEDICAL HISTORY : Atrial fibrillation. Schizophrenia. Paranoia and Hallucinations. SURGICAL HISTORY : Tonsillectomy.Hysterectomy. Tubal ligation.Face lift. ENCOUNTER: Initial ACUITY: 1 day PAIN SCORE: 0/10 LOCATION: Bilateral legs. TECHNIQUE: Venous ultrasound of the left and right leg was performed from the inguinal ligament to the proximal calf. Real-time, color Doppler and spectral tracing, compression and augmentation techniques were us ed. FINDINGS: RIGHT LEG: There is normal compressibility of the deep venous system from the inguinal region to the proximal ca lf. No echogenic clot is seen in the lumen of the common femoral, femoral, popliteal, and posterior tibial veins. There is a normal response of the venous system to proximal and distal augmentation an d respiration. LEFT LEG: There is normal compressibility of the deep venous system from the inguinal region to the proximal ca lf. No echogenic clot is seen in the lumen of the common femoral, femoral, popliteal, and posterior tibial veins. There is a normal response of the venous system to proximal and distal augmentation an d respiration. CONCLUSION: Negative exam with no evidence of deep venous thrombosis. Alo Barton MD on September 23, 2016 at 12:13 Board Certified Radiologist. This report was verified electronically.
--- NOTE | 2016-09-23 12:29 | RADRPT ---
EXAM DATE/TIME: 09/23/2016 09:52 [facility] COMPARISON: No previous studies available for comparison. INDICATIONS: Altered mental status. Abnormal CT. MEDICAL HISTORY: None. SURGICAL HISTORY: Hysterectomy. ENCOUNTER: Initial ACUITY: 1 day PAIN SCORE: 3/10 LOCATION: Cranial Please note a normal MRA of the brain does not entirely exclude the possibility of a small aneurysm, nor the possibility of distal intracranial vessel disease. TECHNIQUE: 3D time of flight MRA was performed. Source images, multiplanar STS MIP, and 3D volume MIP reconstru ctions were reviewed. FINDINGS: MRA of the brain reveals extensive intracranial atherosclerotic vascular disease. There is no aneury sm or vascular displacement. There is no evidence of branch vessel disease. CONCLUSION: Significant intracranial atherosclerotic disease, otherwise negative. Ciaran Davis MD FACR on September 23, 2016 at 12:17 Board Certified Radiologist. This report was verified electronically.
--- NOTE | 2016-09-23 12:32 | RADRPT ---
EXAM DATE/TIME: 09/23/2016 09:52 [facility] COMPARISON: CT BRAIN W/O CONTRAST, September 22, 2016, 23:33. INDICATIONS: Altered mental status. Abnormal CT MEDICAL HISTORY: None. SURGICAL HISTORY: Hysterectomy. ENCOUNTER: Initial ACUITY: 1 day PAIN SCORE: 3/10 LOCATION: Cranial TECHNIQUE: Multiplanar, multisequence MRI of the brain was performed without contrast. FINDINGS: There is no significant restricted diffusion evident. There is a focal area of high signal intensity in the periventricular white matter that does have a small amount of central blood products evident. There is also associated edema with this. There is no extraaxial fluid collection appreciated. This measures approximately 4.25 cm. Again, there is some localized vasogenic edema present. Posterior fossa is unremarkable. CONCLUSION: Abnormality in the right parietal occipital region that does show some blood clots and vasogenic bj a. This probably represents an ischemic event; however, the amount of vasogenic edema is concerning. MRI with contrast would be of benefit when the patient is clinically stable. Ciaran Davis MD FACR on September 23, 2016 at 12:08 Board Certified Radiologist. This report was verified electronically.
[2016-09-23] MEDS ORDERED: HALOPERIDOL LACTATE 5 MG/ML AMP IV PUSH ONE (13:00)
[2016-09-23 13:04] LABS: AUTOMATED NEUTROPHIL # 6.5 TH/MM3 (1.8-7.7); BASOPHIL % 0.1 % (0.0-2.0); EOSINOPHIL % 0.1 % (0.0-4.0); HEMO FLAGS DIFF FINAL; LYMPH % 20.3 % (9.0-44.0); MEAN CELL VOLUME 87.1 FL (80.0-100.0); MEAN CORPUSCULAR HEMOGLOBIN 29.9 PG (27.0-34.0); MEAN CORPUSCULAR HGB CONC 34.4 % (32.0-36.0); MONO % 14.1 % (0.0-8.0); NEUT % 65.4 % (16.0-70.0); PLATELET COUNT 225 TH/MM3 (150-450); RED BLOOD COUNT 4.25 MIL/MM3 (4.00-5.30); RED CELL DISTRIBUTION WIDTH 13.7 % (11.6-17.2)
[2016-09-23 13:07] LABS: INTERNATIONAL NORMALIZED RATIO 1.1 RATIO
[2016-09-23 13:15] LABS: ANION GAP 10 MEQ/L (5-15); AST (GOT) 20 U/L (15-37); BICARBONATE 22.9 MEQ/L (21.0-32.0); BLOOD UREA NITROGEN 15 MG/DL (7-18); CHLORIDE 96 MEQ/L (98-107); GLOMERULAR FILTRATION RATE 113 ML/MIN (>89); POTASSIUM 3.2 MEQ/L (3.5-5.1); SODIUM (NA) 129 MEQ/L (136-145)
[2016-09-23 13:18] LABS: ALKALINE PHOSPHATASE 65 U/L (45-117); ALT (GPT) 36 U/L (10-53); TOTAL BILIRUBIN ADULT 1.1 MG/DL (0.2-1.0)
[2016-09-23 13:20] LABS: CREATINE KINASE 154 U/L (26-192)
[2016-09-23 13:34] LABS: CKMB 7.9 NG/ML (0.5-3.6)
[2016-09-23] MEDS: DEXAMETHASONE SOD PHOS 4 MG/ML VIAL IV PUSH SCH ×2 (13:46→18:00)
[2016-09-23] MEDS ORDERED: GADODIAMIDE PF 287 MG/ML 20 ML VIAL (for RAD MRI) IV ONE (13:53)
[2016-09-23] MEDS: LORazepam 2 MG/ML VIAL IV PUSH PRN ×2 (16:23→20:20)
[2016-09-23 16:35] LABS: HDL CHOLESTEROL 56.4 MG/DL (40.0-60.0)
--- NOTE | 2016-09-23 17:25 | EKG ---
Date Performed: 09/23/2016 Time Performed: 04:34:59 PTAGE: 71 years EKG: ATRIAL FIBRILLATION WITH RAPID VENTRICULAR RESPONSE MARKED LEFT AXIS DEVIATION ANTEROSEPTAL MYOCARDIAL INFARCTION ACUTE CA PREVIOUS TRACING : 09/22/2016 23.19 Atrial fibrillation is new. ST elevation with Q-waves continues across anterior precordium. Clinical correlation strongly recommended. DOCTOR: Ralph Armstrong Interpretating Date/Time 09/23/2016 17:24:33
--- NOTE | 2016-09-23 17:33 | EKG ---
Date Performed: 09/22/2016 Time Performed: 23:19:07 PTAGE: 71 years EKG: Sinus rhythm SEPTAL MYOCARDIAL INFARCTION ACUTE AR NO PREVIOUS TRACING No prior tracing. Probable acute anteroseptal AR. Clinical correlatio n strongly recommended. DOCTOR: Ralph Armstrong Interpretating Date/Time 09/23/2016 17:32:48
--- NOTE | 2016-09-23 18:45 | MB ---
cc: ARTHUR JEFFERY DO DATE OF CONSULTATION 09/23/16 REASON FOR CONSULTATION Elevated troponin. HISTORY OF PRESENT ILLNESS Pauline Bay is a 71-year-old female who presents to [facility] on September 23, 2016 due to a one-week history of paranoia and hallucinations. The patient is currently sedated due to medications so all history is taken from the chart. It appears that she drove to her ex [id number]'s house and, at that time, they tried to send her to the emergency room, but she would not go so her ex [id number]'s new took her back home. She kept having intermittent episodes of panic. so they brought her in for a psych evaluation. She states that she believed people were coming into her house uninvited. Labs drawn in the emergency room found a troponin of 1.4. Case was discussed with cardiology overnight who recommended medical management including heparin. Before initiation of heparin, a CT the brain was obtained and this demonstrated a small focal hemorrhage in the right temporal lobe with a large amount of vasogenic edema. The patient states that she had had a bifrontal headache for about a week. She denies nausea, vomiting or seizures. She also denies chest pain or shortness of breath. She does state that she falls frequently, two to three times in the last few months, but denies head trauma. She did fall in a [facility] about a week ago due to leg weakness. PAST MEDICAL HISTORY 1. Schizophrenia (diagnosed in the but has never been compliant with meds) 2. Tobacco abuse. 3. Questionable history of atrial fibrillation but denies being on anticoagulation. PAST SURGICAL HISTORY 1. Facelift. 2. BTL 3. Total hysterectomy. ALLERGIES CODEINE MEDICATIONS Denies. FAMILY HISTORY Father of an NM at the age of 95. Denies premature coronary artery disease or sudden cardiac within the family. SOCIAL HISTORY She states that she smoked three packs of cigarettes per day since the age of 10. She quit in 1993. Denies alcohol or illicit drug abuse. REVIEW OF SYSTEMS 14 systems were reviewed including osteopathic. Pertinent positives and negatives above, otherwise negative. PHYSICAL EXAMINATION VITAL SIGNS: Temperature 98.0, heart rate 68, blood pressure 131/75, respirations 20, pulse ox 100% on room air. GENERAL: The patient is currently sedated. She is somewhat arousable. HEENT: Extraocular muscles intact. Mucous membranes moist. NECK: Supple. No JVD at 45 degrees. No carotid bruits heard bilaterally. Carotid upstroke is brisk in nature. HEART: Heart is tachycardiac but in a regular rhythm. No noted murmurs noted. LUNGS: Clear to auscultation bilaterally. No wheezes, rales or rhonchi. ABDOMEN: Soft, nontender, nondistended. No organomegaly noted. EXTREMITIES: 1+ pitting edema but otherwise no clubbing or cyanosis. NEUROLOGIC: Currently sedated. PSYCHIATRIC: Unable to determine due to sedation. LABORATORY FINDINGS Hemoglobin 12.7, hematocrit 37.0, platelets 225. Potassium 3.2, BUN 15, creatinine 0.53. Troponin 1.4 decreasing to 0.54. IMPRESSION 1. Elevated troponin. 2. Questionable history of atrial fibrillation not on anticoagulation. 3. Schizophrenia 4. Acute right temporal lobe hemorrhage with edema. 5. Tobacco abuse, quitting in 1993. 6. Brain MRI showing right parietal occipital region with blood clots and vasogenic edema. RECOMMENDATIONS 1. Pauline appears to have a type 2 myocardial infarction. This may be due to her underlying neurological illness. Troponin was initially elevated and falling. 2. She will be treated medically for her elevated troponin. 3. We will await further recommendations from neurology on starting of aspirin. 4. Further recommendations may be made based on hospital course. Thank you for allowing me to see Pauline Bay. If there are any questions, please do not hesitate to call. Arthur Jeffery DO VGP/SA /5:55 PM /6:29 PM
--- NOTE | 2016-09-23 18:51 | MB ---
cc: JUANA MCGUIRE M.D. DATE OF CONSULTATION: 09/23/2016. REASON FOR CONSULTATION: Abnormal brain MRI. Cerebral hemorrhage. HISTORY OF PRESENT ILLNESS: Ms. Bay is a 71-year-old woman who has a history of schizophrenia and for the past week has had paranoid delusions and hallucinations and thought people were coming to her house uninvited. About a week ago she stated that she fell in the [facility] because her legs became weak. She had some numbness in the left leg according to the chart. It is not clear whether or not she hit her head. There was apparently no loss of consciousness. PAST MEDICAL HISTORY: 1. History of atrial fibrillation. 2. History of schizophrenia. 3. Hysterectomy. MEDICATIONS: Her current medications are: 1. Ceftriaxone. 2. Decadron 10 milligrams IV q.6 h. 3. Protonix 40 milligrams IV daily. 4. Chlorhexidine. 5. Apresoline as needed. 6. Labetalol p.r.n. hypertension. 7. Ativan p.r.n. anxiety. 8. Zofran p.r.n. nausea. 9. Albuterol. NEUROLOGICAL EXAMINATION: MENTAL STATUS: The patient is sedated and lethargic. She is not following commands now. She does appear agitated. CRANIAL NERVES: Cranial nerves intact. MOTOR: On motor exam, there is no gross motor deficit. No focal deficit. REFLEXES: Reflexes symmetric. IMAGING STUDIES: CT scan of the head shows a small area of hemorrhage in the right temporal lobe with significant vasogenic edema. She had an MRI of the brain done today showing a right parietooccipital abnormality with some hemorrhage as well as significant vasogenic edema. The patient was not able to cooperate to have the MRI done with contrast today. MRA of the brain shows significant intracranial atherosclerotic disease, otherwise negative. LABORATORY DATA: White count 10,000, hemoglobin 12.7, hematocrit 37%, platelet count 245,000. PT 12, INR 1.1, D-dimer 0.68. Sodium is 129, potassium 3.2, chloride 96, CO2 22.9, the BUN is 15, creatinine 0.53, GFR is 113, glucose 110, AST 20, ALT 36. CPK 154, troponin 0.89. Tox screen negative. Urinalysis shows pH is 6.0, specific gravity 1.026, protein is 30. IMPRESSION: Abnormality on brain MRI in the right parietooccipital region. With the prominent edema, an underlying neoplasm is a possibility. RECOMMENDATIONS: Attempt to obtain an MRI of the brain with contrast when the patient is more cooperative. I will also start the patient empirically on Keppra because of the potential for focal seizures and also obtain an EEG. MD LINA Rodriguez/KAMRAN /6:10 PM /6:44 PM
--- NOTE | 2016-09-23 19:03 | EC ---
Study Study Date:09/23/2016 STUDY CONCLUSIONS SUMMARY - Left ventricle: The cavity size was normal. Systolic function was moderately to severely reduced. The estimated ejection fraction was in the range of 30% to 35%. Akinesis of the apical myocardium. Moderate hypokinesis of the mid-distal anterior myocardium. Moderate hypokinesis of the mid-distal inferior myocardium. - Aortic valve: Valve area: 2.3cm^2(VTI). Valve area: 2.04cm^2 (Vmax). - Mitral valve: Moderately calcified annulus. Mild regurgitation. Impressions: Wall motion abnormality may be due to Takotsubo vs underlying CAD, clinical correlation If LV function is below 40, please consider prescribing an ACEI or ARB or document rationale for non-use. PROCEDURE DATA STUDY STATUS: Elective. Procedure: Transthoracic echocardiography. Image quality was good. Scanning was performed from the parasternal, apical, and subcostal acoustic windows. Study completion: The patient tolerated the procedure well. Transthoracic echocardiography. M-mode, complete 2D, complete spectral Doppler, and color Doppler. Height: Height: 65in. Weight: Weight: 219.5lb. Body mass index: BMI: 36.6kg/m^2. Body surface area: BSA: 2.06m^2. Patient status: Inpatient. CARDIAC ANATOMY LEFT VENTRICLE: The cavity size was normal. Systolic function was moderately to severely reduced. The estimated ejection fraction was in the range of 30% to 35%. Regional wall motion abnormalities: Akinesis of the apical myocardium. Moderate hypokinesis of the mid-distal anterior myocardium. Moderate hypokinesis of the mid-distal inferior myocardium. AORTIC VALVE: The valve appears to be grossly normal. Doppler: There was no stenosis. No significant regurgitation. Valve area: 2.3cm^2(VTI). Indexed valve area: 1.12cm^2/m^2 (VTI). Valve area: 2.04cm^2 (Vmax). Indexed valve area: 0.99cm^2/m^2 (Vmax). Mean gradient: 3mm Hg (S). MITRAL VALVE: Moderately calcified annulus. Doppler: There was no evidence for stenosis. Mild regurgitation. Peak gradient: 3mm Hg (D). LEFT ATRIUM: The atrium was normal in size. RIGHT VENTRICLE: The cavity size was normal. PULMONIC VALVE: Not visualized. TRICUSPID VALVE: The valve appears to be grossly normal. Doppler: There was no evidence for stenosis. Trace to mild regurgitation. PERICARDIUM: There was no pericardial effusion. Patient weight: 219.5lb _Ejection fraction:_ 65-75% _Fractional shortening:_ 32% up to 5Kg 5-11.5Kg 11.6-22.9Kg 23-45Kg 45-57Kg Aortic Root 7-13 <17 13-22 17-27 17-27 LA diam 6-13 <23 24-38 33-47 37-40 RVID 10-17 7-15 7-15 7-18 8-17 LVIDd 12-22 <32 24-38 33-47 37-40 LVPW 2-4 3-6 5-7 6-8 7-8 IVS 2-4 3-6 5-7 6-8 7-8 BASIC MEASUREMENTS ADULT NORMAL Left ventricle LV internal dimension, ED, chordal 50.7 mm 43-52 level, PLAX LV internal dimension, ES, chordal *38.4 mm 23-38 level, PLAX Fractional shortening, chordal level, *24 % >29 PLAX LV posterior wall thickness, ED 10.6 mm IVS/LVPW ratio, ED 0.99 <1.3 Ventricular septum Septal thickness, ED 10.5 mm Aortic valve Leaflet separation 22 mm 15-26 Aorta Root diameter, ED 30 mm Left atrium Anterior-posterior dimension 33 mm Anterior-posterior dimension index 1.6 cm/m^2 <2.2 BASIC MEASUREMENTS ADULT NORMAL Aortic valve Leaflet separation 22 mm 15-26 DOPPLER MEASUREMENTS ADULT NORMAL Main pulmonary artery Pressure, S 30 mm Hg =30 Aortic valve Peak velocity, S 119 cm/s Mean velocity, S 77.6 cm/s VTI, S 22.8 cm Mean gradient, S 3 mm Hg Valve area, VTI 2.3 cm^2 Valve area index, VTI 1.12 cm^2/m^2 Valve area, Vmax 2.04 cm^2 Valve area index, Vmax 0.99 cm^2/m^2 Mitral valve Peak E-wave velocity 83.9 cm/s Peak A-wave velocity 56.3 cm/s Peak gradient, D 3 mm Hg Peak E/A ratio 1.5 Tricuspid valve Regurgitant peak velocity 236 cm/s Peak RV-RA gradient, S 22 mm Hg Maximal regurgitant velocity 236 cm/s Systemic veins Estimated CVP 10 mm Hg Right ventricle RV pressure, S *32 mm Hg <30 Pulmonic valve Peak velocity, S 73.7 cm/s LEGEND: Mean values are shown as u=mean value. Asterisk (*) becerril values outside specified normal range. Prepared and signed by Arthur Park [id number]
[2016-09-23 20:26] LABS: CREATINE KINASE 153 U/L (26-192)
[2016-09-23 20:38] LABS: CKMB 8.2 NG/ML (0.5-3.6)
[2016-09-23] MEDS: levETIRAcetam INJ 500 MG in SODIUM CHLORIDE 0.9% INJ 100 ML IV SCH (20:38)
[2016-09-23] MEDS: cefTRIAXone INJ 1,000 MG in SODIUM CHLORIDE 0.9% INJ 100 ML IV SCH (22:13)
[2016-09-24] VITALS (15 sets, daily range): BP systolic 82–166; BP diastolic 52–94; PULSE 55–126; RESP 14–35; TEMP 97.8–98.7; O2SAT 95–100
[2016-09-24] MEDS: LORazepam 2 MG/ML VIAL IV PUSH PRN ×4 (00:01→20:45)
[2016-09-24] MEDS: CHLORHEXIDINE GLUCONATE 2 % 1 PACK (2 CLOTHS) TOP SCH ×2 (00:41→21:37)
[2016-09-24] MEDS ORDERED: HALOPERIDOL LACTATE 5 MG/ML AMP IV PUSH PRN (01:00)
[2016-09-24 01:41] LABS: CREATINE KINASE 150 U/L (26-192)
[2016-09-24 01:53] LABS: CKMB 8.2 NG/ML (0.5-3.6)
[2016-09-24] MEDS: INSULIN ASPART SUPPLEMENTAL SCALE SQ SCH ×6 (03:00→21:37)
[2016-09-24] MEDS: RESP: ALBUTEROL 2.5 MG/IPRATROPIUM 0.5 MG NEB (SCH) INH ×3 (03:13→15:06)
[2016-09-24 04:24] LABS: AUTOMATED NEUTROPHIL # 10.7 TH/MM3 (1.8-7.7); BASOPHIL % 0.4 % (0.0-2.0); HEMATOCRIT 39.3 % (35.0-46.0); HEMO FLAGS DIFF FINAL; LYMPH % 11.3 % (9.0-44.0); LYMPHOCYTE # 1.4 TH/MM3 (1.0-4.8); MEAN CORPUSCULAR HEMOGLOBIN 29.2 PG (27.0-34.0); MEAN CORPUSCULAR HGB CONC 33.2 % (32.0-36.0); MONO % 4.6 % (0.0-8.0); NEUT % 83.7 % (16.0-70.0); PLATELET COUNT 282 TH/MM3 (150-450); RED BLOOD COUNT 4.46 MIL/MM3 (4.00-5.30); WHITE BLOOD COUNT 12.8 TH/MM3 (4.0-11.0)
[2016-09-24 05:03] LABS: ALKALINE PHOSPHATASE 73 U/L (45-117); ALT (GPT) 37 U/L (10-53); ANION GAP 14 MEQ/L (5-15); AST (GOT) 17 U/L (15-37); BICARBONATE 20.5 MEQ/L (21.0-32.0); BLOOD UREA NITROGEN 12 MG/DL (7-18); CHLORIDE 104 MEQ/L (98-107); GLOMERULAR FILTRATION RATE 87 ML/MIN (>89); MAGNESIUM 2.4 MG/DL (1.5-2.5); POTASSIUM 3.6 MEQ/L (3.5-5.1); SODIUM (NA) 138 MEQ/L (136-145); TOTAL BILIRUBIN ADULT 0.8 MG/DL (0.2-1.0)
[2016-09-24] MEDS: DEXAMETHASONE SOD PHOS 4 MG/ML VIAL IV PUSH SCH ×5 (05:36→23:07)
--- NOTE | 2016-09-24 07:22 | HHI.CCPN ---
Subjective Remarks/Hospital Course 71-year-old female who reportedly was diagnosed with schizophrenia but who does not take any medications chronically presented to [facility] with one week history of paranoia and hallucinations. She said she believed people were coming into her house uninvited. She drove to her ex-daughter in-laws house and this woman's new was there and tried to redirect her as she reportedly has a h/o intermittent paranoid delusions. He took her back to her home yesterday but she was having intermittent episodes of panic so she was brought in for psychiatry evaluation. While doing psychiatric clearance, ED [employer]IL[employer] OPERATOR and physician discovered that she had elevated troponin of 1.4 with normal CKMB fraction. Creatinine is normal at 0.63. Case was discussed with cardiology who recommended medical management including heparin. Before initiation of heparin, CT brain was obtained. This demonstrated small focal hemorrhage in right temporal lobe with large amount of vasogenic edema (without shift). Patient states she has had a bifrontal headache for about a week. No n/v/ seizures. She does state that she falls frequently (2-3 times in last 2 months) but denies head trauma. She states she has noticed some left leg weakness for about a week and she states she fell in [facility] pharmacy about a week ago due to leg weakness. She has noticed some decreased sensation on the left leg as well. She denies any changes in vision or speech. She does have dysarthric speech, but she states this is chronic. She states she has been having intermittent "panic attacks" with episodes of SOB and discomfort in her chest. She states this improves when her family tries to calm her down. She denies exertional CP/ SOB or hemoptysis. She has noticed BLE pedal edema ~ 1 week. She denies prior h/ o stroke. States she saw Dr. Antonio with neurology in the past. She has atrial fibrillation but denies having been on anticoagulation 09/24 Patient was given Ativan/Haldol overnight for agitation and confusion. MRI brain wo contrast yesterday showed abnormality in the right parietal occipital region that does show some blood clots and vasogenic edema. For MRI brain with contrast and EEG today. Objective Vital Signs Date Time Temp Pulse Resp B/P Pulse Ox O2 Delivery O2 Flow Rate FiO2 09/24/16 06:00 107 09/24/16 04:00 97.8 28 166/79 100 09/23/16 02:51 Room Air Intake and Output 09/23/16 09/23/16 09/24/16 08:00 16:00 00:00 Intake Total 145 ml 320 ml 277 ml Balance 145 ml 320 ml 277 ml Result Diagram: 09/24/16 0348 09/24/16 0348 Other Results Laboratory Tests Test 09/23/16 09/23/16 09/24/16 09/24/16 12:30 19:39 01:02 03:48 White Blood Count 10.0 TH/MM3 12.8 TH/MM3 Red Blood Count 4.25 MIL/MM3 4.46 MIL/MM3 Hemoglobin 12.7 GM/DL 13.0 GM/DL Hematocrit 37.0 % 39.3 % Mean Corpuscular Volume 87.1 FL 88.0 FL Mean Corpuscular Hemoglobin 29.9 PG 29.2 PG Mean Corpuscular Hemoglobin 34.4 % 33.2 % Concent Red Cell Distribution Width 13.7 % 14.0 % Platelet Count 225 TH/MM3 282 TH/MM3 Mean Platelet Volume 8.8 FL 8.9 FL Neutrophils (%) (Auto) 65.4 % 83.7 % Lymphocytes (%) (Auto) 20.3 % 11.3 % Monocytes (%) (Auto) 14.1 % 4.6 % Eosinophils (%) (Auto) 0.1 % 0.0 % Basophils (%) (Auto) 0.1 % 0.4 % Neutrophils # (Auto) 6.5 TH/MM3 10.7 TH/MM3 Lymphocytes # (Auto) 2.0 TH/MM3 1.4 TH/MM3 Monocytes # (Auto) 1.4 TH/MM3 0.6 TH/MM3 Eosinophils # (Auto) 0.0 TH/MM3 0.0 TH/MM3 Basophils # (Auto) 0.0 TH/MM3 0.0 TH/MM3 CBC Comment DIFF FINAL DIFF FINAL Differential Comment Prothrombin Time 12.0 SEC Prothromb Time International 1.1 RATIO Ratio Sodium Level 129 MEQ/L 138 MEQ/L Potassium Level 3.2 MEQ/L 3.6 MEQ/L Chloride Level 96 MEQ/L 104 MEQ/L Carbon Dioxide Level 22.9 MEQ/L 20.5 MEQ/L Anion Gap 10 MEQ/L 14 MEQ/L Blood Urea Nitrogen 15 MG/DL 12 MG/DL Creatinine 0.53 MG/DL 0.67 MG/DL Estimat Glomerular Filtration 113 ML/MIN 87 ML/MIN Rate Random Glucose 110 MG/DL 130 MG/DL Calcium Level 7.9 MG/DL 8.6 MG/DL Phosphorus Level 1.9 MG/DL 3.3 MG/DL Magnesium Level 2.0 MG/DL 2.4 MG/DL Total Bilirubin 1.1 MG/DL 0.8 MG/DL Aspartate Amino Transf 20 U/L 17 U/L (AST/SGOT) Alanine Aminotransferase 36 U/L 37 U/L (ALT/SGPT) Alkaline Phosphatase 65 U/L 73 U/L Total Creatine Kinase 154 U/L 153 U/L 150 U/L Creatine Kinase MB 7.9 NG/ML 8.2 NG/ML 8.2 NG/ML Troponin I 0.54 NG/ML 0.45 NG/ML 0.39 NG/ML Total Protein 6.5 GM/DL 7.1 GM/DL Albumin 3.3 GM/DL 3.6 GM/DL Imaging Last Impressions Lower Extremity Ultrasound 09/23/16 0000 Signed Impressions: Service Date/Time: Friday, September 23, 2016 11:17 - CONCLUSION: Negative exam with no evidence of deep venous thrombosis. Alo Barton MD Head Magnetic Resonance Angiography 09/23/16 0000 Signed Impressions: Service Date/Time: Friday, September 23, 2016 09:52 - CONCLUSION: Significant intracranial atherosclerotic disease, otherwise negative. Ciaran Davis MD FACR Brain MRI 09/23/16 0000 Signed Impressions: Service Date/Time: Friday, September 23, 2016 09:52 - CONCLUSION: Abnormality in the right parietal occipital region that does show some blood clots and vasogenic edema. This probably represents an ischemic event; however, the amount of vasogenic edema is concerning. MRI with contrast would be of benefit when the patient is clinically stable. Ciaran Davis MD FACR Chest X-Ray 09/22/16 2200 Signed Impressions: Service Date/Time: September 22:09 - CONCLUSION: No acute disease. Bon Garcia MD Head CT 09/22/16 0000 Signed Impressions: Service Date/Time: September 23:33 - CONCLUSION: 1. Small focal hemorrhage involving the right temporal lobe with prominent vasogenic edema. Underlying neoplasm is not excluded. MRI is recommended for further evaluation if clinically indicated. Benitez Choudhury MD Objective Remarks GENERAL: Patient is 71 yo with intermittent confusion and agitation. SKIN: Warm and dry. HEAD: Normocephalic. EYES: No scleral icterus. No injection or drainage. NECK: Supple, trachea midline. No JVD or lymphadenopathy. CARDIOVASCULAR: Regular rate and rhythm without murmurs, gallops, or rubs. RESPIRATORY: Breath sounds equal bilaterally. No accessory muscle use. GASTROINTESTINAL: Abdomen soft, non-tender, nondistended. MUSCULOSKELETAL: No cyanosis, or edema. Neuro: Agitated and confused at times. A/P Assessment and Plan NEURO: Acute R temporal lobe hemorrhage with edema. Schizophrenia AMS Anxiety Monitor neuro status. On Ativan/Haldol PRN for agitation MRI brain wo contrast showed abnormality in the right parietal occipital region that does show some blood clots and vasogenic edema. For MRI brain with contrast and EEG today Continue with Decadron 10mg Q6 and Keppra 500mg BID NSG and Neurology are following RESP: Continue with oxygen keep sat >92% Aspiration precautions Bronchodilators CV: Atrial fibrillation Elevated troponin Monitor HR and BP keep MAP>65mmHg Echo showed EF 30-35% with wall motion abnormalities. Cards is following- Dr. Park. 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 ID: ?[id number] Continue Rocephin 1 g IV every 24 hours and follow up urine culture. HEME: Monitor CBC. ENDO: SSI if needed for glycemic control PROPH: SCDs and teds for DVT prophylaxis. Pharmacologic DVT prophylaxis contraindicated due to intracerebral hemorrhage. Protonix 40 mg IV daily for stress ulcer prophylaxis. ACCESS: Peripheral IV providing adequate access at this time. 1500 Addendum: Due to worsening mental status and episodes of desaturation patient was intubated for airway protection and placed on mechanical ventilation. Family was updated at bedside. Check CXR and ABG post intubation keep PaCO2 around 30mmHg. Continue with IVF. 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 Continue with Decadron 10mg IVQ6, Isotonic fluids and will add Mannitol 25gms IV Q6. Discussed with Dr. Ibrahim. CCT 40 mins excluding procedures Alex,Alaa MD Sep 24, 2016 07:22
[2016-09-24] MEDS: levETIRAcetam INJ 500 MG in SODIUM CHLORIDE 0.9% INJ 100 ML IV SCH ×2 (08:18→20:45)
[2016-09-24] MEDS: PANTOPRAZOLE SODIUM 40 MG VIAL IV SCH (08:18)
[2016-09-24] MEDS: SODIUM CHLORIDE 0.9% FLUSH 5 ML FLUSH IV FLUSH SCH ×2 (08:19→20:45)
--- NOTE | 2016-09-24 08:51 | PD.CARD.PN ---
Subjective Subjective Remarks More awake, no chest pain, no shortness of breath Objective Medications Current Medications Medications (Trade) Dose Ordered Sig/Hardeep Route Start Time Stop Time Status Last Admin (D50w (Vial) Inj) 25 ml UNSCH PRN IV PUSH 09/23/16 03:00 (Glucagon Inj) 1 mg UNSCH PRN OTHER 09/23/16 03:00 Insulin Aspart 1 1 Q4H SQ 09/23/16 03:00 Potassium Chloride 100 ml @ 50 mls/hr Q2H PRN IV 09/23/16 03:00 (KCl 20 Meq Premix Inj) 100 ml @ 50 mls/hr Q2H PRN IV 09/23/16 03:00 Potassium Chloride 40 meq 40 meq UNSCH PRN PO/TUBE 09/23/16 03:00 Potassium Chloride 100 ml @ 25 mls/hr UNSCH PRN IV 09/23/16 03:00 Potassium Chloride 100 ml @ 50 mls/hr Q2H PRN IV 09/23/16 03:00 09/23/16 04:26 (Magnesium Sulfate Inj/NS Inj) 100 ml @ 50 mls/hr UNSCH PRN IV 09/23/16 03:00 Magnesium Oxide 800 mg 800 mg UNSCH PRN PO 09/23/16 03:00 (Magnesium Sulfate Inj/NS Inj) 100 ml @ 50 mls/hr UNSCH PRN IV 09/23/16 03:00 Potassium Phosphate 2000 mg 2,000 mg Q4H PRN PO 09/23/16 03:00 (Sodium Phosphate Inj/NS 250 ml Inj) 250 ml @ 42 mls/hr UNSCH PRN IV 09/23/16 03:00 (KCl 40 Meq/30 ml Liq) 40 meq UNSCH PRN PO/TUBE 09/23/16 03:00 Potassium Phosphate 2000 mg 2,000 mg UNSCH PRN PO/TUBE 09/23/16 03:00 Potassium Phosphate 30 mmol/ Sodium Chloride 260 ml @ 42 mls/hr UNSCH PRN IV 09/23/16 03:00 09/23/16 16:38 (Rocephin Inj/NS Inj) 100 ml @ 200 mls/hr Q24H IV 09/23/16 22:00 09/23/16 22:13 (Apresoline Inj) 10 mg Q4H PRN IV PUSH 09/23/16 03:30 (Trandate Inj) 10 mg Q4H PRN IV PUSH 09/23/16 03:30 (Ativan Inj) 0.5 mg Q4H PRN IV PUSH 09/23/16 03:30 09/24/16 08:18 (NS Flush) 2 ml UNSCH PRN IV FLUSH 09/23/16 03:30 (NS Flush) 2 ml BID IV FLUSH 09/23/16 09:00 09/24/16 08:19 (Protonix Inj) 40 mg DAILY IV 09/23/16 09:00 09/24/16 08:18 (Zofran Inj) 4 mg Q6H PRN IV 09/23/16 03:30 Miscellaneous Information 1 Q361D XX 09/23/16 03:30 09/23/16 03:30 (Chlorhexidine 2% Cloth) 3 pack Taper DAILY@04 TOP 09/23/16 04:00 09/19/17 03:59 09/24/16 00:41 (Chlorhexidine 2% Cloth) 3 pack UNSCH PRN TOP 09/23/16 03:30 Dexamethasone Sodium Phosphate 10 mg 10 mg Q6HR IV PUSH 09/23/16 13:15 09/24/16 05:36 (Keppra Inj/NS Inj) 105 ml @ 420 mls/hr Q12HR IV 09/23/16 21:00 09/24/16 08:18 (Haldol Inj) 2 mg Q6H PRN IV PUSH 09/24/16 01:00 09/24/16 05:36 Vital Signs / I&O Vital Signs Date Time Temp Pulse Resp B/P Pulse Ox O2 Delivery O2 Flow Rate FiO2 09/24/16 06:00 107 09/24/16 04:00 126 09/24/16 04:00 97.8 126 28 166/79 100 09/24/16 02:00 117 09/24/16 00:00 98.7 115 30 143/70 98 09/24/16 00:00 115 09/23/16 22:00 100 09/23/16 20:00 97.4 74 20 109/62 94 09/23/16 20:00 74 09/23/16 18:00 67 09/23/16 16:00 98.0 68 24 131/75 100 09/23/16 16:00 68 09/23/16 14:00 67 09/23/16 13:12 97.9 68 18 118/59 97 09/23/16 12:00 69 09/23/16 10:00 59 I/O 09/23/16 09/23/16 09/23/16 09/24/16 09/24/16 09/24/16 07:00 15:00 23:00 07:00 15:00 23:00 Intake Total 145 ml 597 ml 600 ml Balance 145 ml 597 ml 600 ml Intake Oral 120 ml IV Total 145 ml 477 ml 600 ml # Voids 1 2 2 # Bowel Movements 2 Physical Exam GENERAL: NAD SKIN: Warm and dry. HEAD: Atraumatic. Normocephalic. EYES: Pupils equal and round. No scleral icterus. No injection or drainage. ENT: No nasal bleeding or discharge. Mucous membranes pink and moist. NECK: Trachea midline. No JVD. CARDIOVASCULAR: Regular rate and rhythm. RESPIRATORY: No accessory muscle use. Clear to auscultation. Breath sounds equal bilaterally. GASTROINTESTINAL: Abdomen soft, non-tender, nondistended. Hepatic and splenic margins not palpable. MUSCULOSKELETAL: Extremities without clubbing, cyanosis, or edema. No obvious deformities. NEUROLOGICAL: Awake, moving extremities spontaneously Laboratory Laboratory Tests Test 09/23/16 09/23/16 09/24/16 09/24/16 12:30 19:39 01:02 03:48 White Blood Count 10.0 TH/MM3 12.8 TH/MM3 Red Blood Count 4.25 MIL/MM3 4.46 MIL/MM3 Hemoglobin 12.7 GM/DL 13.0 GM/DL Hematocrit 37.0 % 39.3 % Mean Corpuscular Volume 87.1 FL 88.0 FL Mean Corpuscular Hemoglobin 29.9 PG 29.2 PG Mean Corpuscular Hemoglobin 34.4 % 33.2 % Concent Red Cell Distribution Width 13.7 % 14.0 % Platelet Count 225 TH/MM3 282 TH/MM3 Mean Platelet Volume 8.8 FL 8.9 FL Neutrophils (%) (Auto) 65.4 % 83.7 % Lymphocytes (%) (Auto) 20.3 % 11.3 % Monocytes (%) (Auto) 14.1 % 4.6 % Eosinophils (%) (Auto) 0.1 % 0.0 % Basophils (%) (Auto) 0.1 % 0.4 % Neutrophils # (Auto) 6.5 TH/MM3 10.7 TH/MM3 Lymphocytes # (Auto) 2.0 TH/MM3 1.4 TH/MM3 Monocytes # (Auto) 1.4 TH/MM3 0.6 TH/MM3 Eosinophils # (Auto) 0.0 TH/MM3 0.0 TH/MM3 Basophils # (Auto) 0.0 TH/MM3 0.0 TH/MM3 CBC Comment DIFF FINAL DIFF FINAL Differential Comment Prothrombin Time 12.0 SEC Prothromb Time International 1.1 RATIO Ratio Sodium Level 129 MEQ/L 138 MEQ/L Potassium Level 3.2 MEQ/L 3.6 MEQ/L Chloride Level 96 MEQ/L 104 MEQ/L Carbon Dioxide Level 22.9 MEQ/L 20.5 MEQ/L Anion Gap 10 MEQ/L 14 MEQ/L Blood Urea Nitrogen 15 MG/DL 12 MG/DL Creatinine 0.53 MG/DL 0.67 MG/DL Estimat Glomerular Filtration 113 ML/MIN 87 ML/MIN Rate Random Glucose 110 MG/DL 130 MG/DL Calcium Level 7.9 MG/DL 8.6 MG/DL Phosphorus Level 1.9 MG/DL 3.3 MG/DL Magnesium Level 2.0 MG/DL 2.4 MG/DL Total Bilirubin 1.1 MG/DL 0.8 MG/DL Aspartate Amino Transf 20 U/L 17 U/L (AST/SGOT) Alanine Aminotransferase 36 U/L 37 U/L (ALT/SGPT) Alkaline Phosphatase 65 U/L 73 U/L Total Creatine Kinase 154 U/L 153 U/L 150 U/L Creatine Kinase MB 7.9 NG/ML 8.2 NG/ML 8.2 NG/ML Troponin I 0.54 NG/ML 0.45 NG/ML 0.39 NG/ML Total Protein 6.5 GM/DL 7.1 GM/DL Albumin 3.3 GM/DL 3.6 GM/DL Assessment and Plan Problem List: (1) Hemorrhage of right temporal lobe (2) Elevated troponin (3) Hallucination Assessment and Plan 1) Elevated troponins most likely NSTEMI type 2, continue with medical management as possible 2) EF 30-35%, unsure if chronic, possible Takotsubo Cardiomyopathy but not clear 3) Medical management of elevated troponin 4) Would wait for Neurology to allow Arthur Palomares DO Sep 24, 2016 08:51
[2016-09-24 12:37] LABS: HEMOGLOBIN A1a 1.5 %; HEMOGLOBIN A1b 1.6 %; HEMOGLOBIN Ao 85.6 %; HEMOGLOBIN LA1C 1.9 %; HEMOGLOBIN P3 3.8 %
[2016-09-24] MEDS ORDERED: LORazepam 2 MG/ML VIAL IV PUSH ONE (13:00)
[2016-09-24] MEDS ORDERED: ETOMIDATE 40 MG/20 ML VIAL ONE (14:43)
[2016-09-24] MEDS ORDERED: PROPOFOL 1000 MG/100 ML INJ 100 ML ONE (14:43)
[2016-09-24] MEDS ORDERED: fentaNYL DRIP 250 ML IV SCH (15:15)
[2016-09-24] MEDS: CARVEDILOL 3.125 MG TAB PO SCH ×2 (15:20→20:45)
--- NOTE | 2016-09-24 15:43 | RADRPT ---
EXAM DATE/TIME: 09/24/2016 15:17 [facility] COMPARISON: CHEST SINGLE AP, September 22, 2016, 22:09. INDICATIONS : Status Post Intubation. MEDICAL HISTORY : Atrial fibrillation. Schizophrenia. Paranoia and Hallucinations. SURGICAL HISTORY : Tonsillectomy.Hysterectomy. Tubal ligation.Face lift. ENCOUNTER: Initial ACUITY: 1 day PAIN SCORE: Non-responsive. LOCATION: Bilateral chest FINDINGS: Endotracheal tube tip is in satisfactory position. There is minimal basilar density most characterist ic of atelectasis. No significant effusion. No pneumothorax. Heart size upper limits normal. CONCLUSION: 1. Minimal basilar atelectasis. Endotracheal tube tip satisfactory position. Eleuterio Pyle MD on September 24, 2016 at 15:39 Board Certified Radiologist. This report was verified electronically.
[2016-09-24] MEDS ORDERED: GADODIAMIDE PF 287 MG/ML 20 ML VIAL (for RAD MRI) IV ONE (16:13)
--- NOTE | 2016-09-24 17:03 | EKG ---
Date Performed: 09/23/2016 Time Performed: 20:47:22 PTAGE: 71 years EKG: SINUS TACHYCARDIA LEFT AXIS DEVIATION ANTEROSEPTAL MYOCARDIAL INFARCTION , OF UNDETERMINED AGE Compared to PREVIOUS TRACING , rhythm has changed from atrial fibrillation to sinus tachycardia PREVI OUS TRACIN09/23/2016 04.34 DOCTOR: Kenroy Bernardo Interpretating Date/Time 09/24/2016 17:03:03
--- NOTE | 2016-09-24 17:03 | RADRPT ---
[facility] COMPARISON: No previous studies available for comparison. INDICATIONS : Right sided brain mass CONTRAST: IV MEDICAL HISTORY : Right brain mass SURGICAL HISTORY : Unknown ENCOUNTER: Subsequent ACUITY: Subacute PAIN SCORE: Unknown LOCATION: Brain TECHNIQUE: Multiplanar, multisequence MRI of the brain was performed following the administration of paramagneti c contrast. FINDINGS: Postcontrast images reveal a lobulated mostly rim enhancing mass in the right temporo-occipital regio n measuring up to 5.2 cm AP, 3.4 cm transverse and 3 cm cephalocaudad. There is surrounding vasogenic edema. There is some spontaneous increased signal anteriorly within the mass most characteristic of a small amount hemorrhage. There is mild localized mass effect. No significant midline shift. Inciden chris tawana cisterna magna. CONCLUSION: 1. Lobulated, enhancing mass in the right temporo-occipital region most characteristic of a tumor, pr obably some form of glioma. Eleuterio Pyle MD on September 24, 2016 at 16:56 Board Certified Radiologist. This report was verified electronically.
--- NOTE | 2016-09-24 17:04 | RADRPT ---
EXAM DATE/TIME: 09/24/2016 14:31 [facility] COMPARISON: No previous studies available for comparison. INDICATIONS : Abnormal CT CONTRAST: 20 cc Omniscan (gadodiamide) IV MEDICAL HISTORY : None. SURGICAL HISTORY : Hysterectomy. ENCOUNTER: Initial ACUITY: 1 day PAIN SCORE: 3/10 LOCATION: cranial Percent stenosis is calculated using the diameter of the stenotic region over the diameter of the nor mal distal internal carotid artery. TECHNIQUE: Bolus infused MRA of the extracranial circulation was performed using a neurovascular coil. Post pro cessing was performed including rotationg subvolume maximum intensity projections of each carotid art yosi, rotating full volume maximum intensity projections of both carotid arteries, sagittal and llamas l sliding thin slab reformations of each carotid artery, and left oblique sliding thin slab reformati on through the aortic arch to include the origin of the arch branch vessels. FINDINGS: AORTIC ARCH: There is a three vessel origin of the great vessels from the aorta. No evidence of ostial narrowing. RIGHT CAROTID: The common carotid artery is intact. The carotid bulb has a normal configuration without ulceration or narrowing. The internal carotid artery lumen is smooth without stenosis. The external carotid ar nataliia is intact. LEFT CAROTID: The common carotid artery is intact. The carotid bulb has a normal configuration without ulceration or narrowing. The internal carotid artery lumen is smooth without stenosis. The external carotid ar nataliia is intact. VERTEBRALS: The vertebral arteries have a symmetric diameter. No stenotic lesions are seen. CONCLUSION: Normal examination for a patient of this age. Eleuterio Pyle MD on September 24, 2016 at 17:00 Board Certified Radiologist. This report was verified electronically.
[2016-09-24 17:28] LABS: BLOOD GAS BASE EXCESS -5.1 mmol/L (-2-2); BLOOD GAS CARBOXYHEMOGLOBIN 1.2 % (0-4); BLOOD GAS HCO3 19 mmol/L (22-26); BLOOD GAS METHEMOGLOBIN 1.5 % (0-2); BLOOD GAS O2 HGB SATURATION 96 % (90-100); BLOOD GAS OXYGEN CONTENT 16.1 Vol % (12.0-20.0); BLOOD GAS PCO2 32 mmHg (38-42); BLOOD GAS PO2 118 mmHg (61-120); BLOOD GAS TOTAL HGB 11.8 G/DL (12.0-16.0); CRITICAL VALUE NO; DRAW SITE RT RADIAL; FIO2 40 %; NUMBER OF ARTERIAL PUNCTURES 1; OXYGEN DEVICE VENTILATOR; STAT NO; TEMP CORR TO 98.6; ULNAR PULSE PRESENT; VENT SETTINGS 500/14/5PEEP
[2016-09-24] MEDS: PROPOFOL 1000 MG/100 ML INJ 100 ML IV SCH ×2 (17:35→20:45)
[2016-09-24] MEDS: MANNITOL 12.5 GM/50 ML VIAL IV SCH ×2 (17:36→22:09)
[2016-09-24] MEDS: SODIUM CHLOR 0.9% 1000 ML INJ 1,000 ML IV SCH ×2 (17:37→20:07)
[2016-09-24] MEDS: RESP: ALBUTEROL 2.5 MG/IPRATROPIUM 0.5 MG NEB (SCH) NEB (20:13)
[2016-09-24] MEDS: cefTRIAXone INJ 1,000 MG in SODIUM CHLORIDE 0.9% INJ 100 ML IV SCH (20:46)
--- NOTE | 2016-09-24 23:03 | MG ---
cc: JUANA MCGUIRE Lab No: [id number] Date: 09/24/16 Age: Sex: F Race: TECHNIQUE 17 channel EEG. DESCRIPTION Background rhythm reveals slowing in the theta range at roughly 6 Hz, amplitude 20 microvolts. Sleep spindles are identified as well. There are no lateralizing features. No epileptiform features. There are vertex sharp waves seen as normal sleep activity. Again no epileptiform features are identified. Photic results in a modest driving response. INTERPRETATION Mildly abnormal study consistent with mild encephalopathy. There is also normal sleep activity present. No epileptiform features are seen. MD LINA Rodriguez/ /10:32 PM /11:02 PM
[2016-09-25] VITALS (18 sets, daily range): BP systolic 95–134; BP diastolic 55–77; PULSE 53–111; RESP 14–27; TEMP 97.4–98.4; O2SAT 22–96
[2016-09-25] MEDS: INSULIN ASPART SUPPLEMENTAL SCALE SQ SCH ×6 (03:00→23:00)
[2016-09-25] MEDS: RESP: ALBUTEROL 2.5 MG/IPRATROPIUM 0.5 MG NEB (SCH) NEB ×4 (03:12→21:09)
[2016-09-25] MEDS: MANNITOL 12.5 GM/50 ML VIAL IV SCH ×4 (04:17→23:00)
[2016-09-25] MEDS: DEXAMETHASONE SOD PHOS 4 MG/ML VIAL IV PUSH SCH ×3 (04:18→18:07)
[2016-09-25 07:41] LABS: AUTOMATED NEUTROPHIL # 10.4 TH/MM3 (1.8-7.7); BASOPHIL % 0.1 % (0.0-2.0); HEMATOCRIT 35.4 % (35.0-46.0); LYMPH % 8.7 % (9.0-44.0); LYMPHOCYTE # 1.1 TH/MM3 (1.0-4.8); MEAN CELL VOLUME 88.1 FL (80.0-100.0); MEAN CORPUSCULAR HEMOGLOBIN 29.8 PG (27.0-34.0); MEAN CORPUSCULAR HGB CONC 33.8 % (32.0-36.0); MONO % 9.9 % (0.0-8.0); NEUT % 81.3 % (16.0-70.0); PLATELET COUNT 253 TH/MM3 (150-450); RED BLOOD COUNT 4.02 MIL/MM3 (4.00-5.30); RED CELL DISTRIBUTION WIDTH 14.3 % (11.6-17.2); WHITE BLOOD COUNT 12.7 TH/MM3 (4.0-11.0)
[2016-09-25 07:47] LABS: HEMO FLAGS AUTO DIFF
[2016-09-25 08:20] LABS: BICARBONATE 20.6 MEQ/L (21.0-32.0); MAGNESIUM 2.4 MG/DL (1.5-2.5); POTASSIUM 3.7 MEQ/L (3.5-5.1)
--- NOTE | 2016-09-25 09:02 | HHI.NSPN ---
History Chief Complaint: Cerebral mass. Interval History Ms. Bay is a 71 year old female who presented to [facility] with acute delirium. She had reported peopler were coming to her house, she was having panic attacks. She was brought to [facility] by her family member. A CT Brain showed a small focal hemorrhage in right temporal lobe with large amount of vasogenic edema. No known history of brain masses or tumors. She also reports of recently having headaches, as well as some weakness on the left side. 09/24/16: Came to evaluate pt but off the floor for MRI for prolonged period of time. Called MRI and pt pulled out IV and is agitated and tech states she may need to be sedated and intubated for MRI as she is not going to hold still and lost IV access for contrast MRI. 09/25/16: Pt sedated on Diprivan and Fentanyl drips. Intubated. Opens eyes when stimulated. Follows simple commands. System Review Comments Not able to obtain given clinical status. Exam Results Vital Signs Date Time Temp Pulse Resp B/P Pulse Ox O2 Delivery O2 Flow Rate FiO2 09/25/16 08:12 96 40 09/25/16 06:00 58 09/25/16 04:00 98.0 14 95/55 09/23/16 02:51 Room Air Intake and Output 09/24/16 09/24/16 09/25/16 08:00 16:00 00:00 Intake Total 600 ml 620 ml 855 ml Output Total 600 ml Balance 600 ml 620 ml 255 ml Physical Examination Resp: Intubated. CTA bilaterally Heart: NSR no murmurs Abd: Soft positive bs Skin: No cyanosis or erythema Muscle: Moves all 4 extremities. Gets agitated requires sedation. Neuro: Pt sedated on Diprivan and Fentanyl drips. Pupils 3mm bilaterally reactive bilaterally. Follows simple commands. Periods of agitation. Lab, Micro, Other Results Last Impressions Neck Magnetic Resonance Angiography 09/24/16 0000 Signed Impressions: Service Date/Time: Saturday, September 24, 2016 14:31 - CONCLUSION: Normal examination for a patient of this age. Eleuterio Pyle MD Chest X-Ray 09/24/16 0000 Signed Impressions: Service Date/Time: Saturday, September 24, 2016 15:17 - CONCLUSION: 1. Minimal basilar atelectasis. Endotracheal tube tip satisfactory position. Eleuterio Pyle MD Lower Extremity Ultrasound 09/23/16 0000 Signed Impressions: Service Date/Time: Friday, September 23, 2016 11:17 - CONCLUSION: Negative exam with no evidence of deep venous thrombosis. Alo Barton MD Head Magnetic Resonance Angiography 09/23/16 0000 Signed Impressions: Service Date/Time: Friday, September 23, 2016 09:52 - CONCLUSION: Significant intracranial atherosclerotic disease, otherwise negative. Ciaran Davis MD FACR Brain MRI 09/23/16 0000 Signed Impressions: Service Date/Time: Friday, September 23, 2016 09:52 - CONCLUSION: Abnormality in the right parietal occipital region that does show some blood clots and vasogenic edema. This probably represents an ischemic event; however, the amount of vasogenic edema is concerning. MRI with contrast would be of benefit when the patient is clinically stable. Ciaran Davis MD FACR Head CT 09/22/16 0000 Signed Impressions: Service Date/Time: September 23:33 - CONCLUSION: 1. Small focal hemorrhage involving the right temporal lobe with prominent vasogenic edema. Underlying neoplasm is not excluded. MRI is recommended for further evaluation if clinically indicated. Benitez Choudhury MD Laboratory Tests Test 09/24/16 09/24/16 09/25/16 16:45 17:18 06:15 Urine Osmolality 475 MOSM/KG Blood Gas Puncture Site RT RADIAL Blood Gas Patient Temperature 98.6 Blood Gas HCO3 19 mmol/L Blood Gas Base Excess -5.1 mmol/L Blood Gas Oxygen Saturation 96 % Arterial Blood pH 7.40 Arterial Blood Partial 32 mmHg Pressure CO2 Arterial Blood Partial 118 mmHg Pressure O2 Arterial Blood Oxygen Content 16.1 Vol % Arterial Blood 1.2 % Carboxyhemoglobin Arterial Blood Methemoglobin 1.5 % Blood Gas Hemoglobin 11.8 G/DL Oxygen Delivery Device VENTILATOR Blood Gas Ventilator Setting 500/14/5PEEP Blood Gas Inspired Oxygen 40 % White Blood Count 12.7 TH/MM3 Red Blood Count 4.02 MIL/MM3 Hemoglobin 12.0 GM/DL Hematocrit 35.4 % Mean Corpuscular Volume 88.1 FL Mean Corpuscular Hemoglobin 29.8 PG Mean Corpuscular Hemoglobin 33.8 % Concent Red Cell Distribution Width 14.3 % Platelet Count 253 TH/MM3 Mean Platelet Volume 9.3 FL Neutrophils (%) (Auto) 81.3 % Lymphocytes (%) (Auto) 8.7 % Monocytes (%) (Auto) 9.9 % Eosinophils (%) (Auto) 0.0 % Basophils (%) (Auto) 0.1 % Neutrophils # (Auto) 10.4 TH/MM3 Lymphocytes # (Auto) 1.1 TH/MM3 Monocytes # (Auto) 1.3 TH/MM3 Eosinophils # (Auto) 0.0 TH/MM3 Basophils # (Auto) 0.0 TH/MM3 CBC Comment AUTO DIFF Sodium Level 143 MEQ/L Potassium Level 3.7 MEQ/L Chloride Level 111 MEQ/L Carbon Dioxide Level 20.6 MEQ/L Anion Gap 11 MEQ/L Blood Urea Nitrogen 18 MG/DL Creatinine 0.60 MG/DL Estimat Glomerular Filtration 98 ML/MIN Rate Random Glucose 110 MG/DL Calcium Level 8.3 MG/DL Phosphorus Level 3.5 MG/DL Magnesium Level 2.4 MG/DL 09/24/16 09/24/16 09/25/16 15:00 23:00 07:00 Intake Total 620 ml 855 ml 910 ml Output Total 600 ml 500 ml Balance 620 ml 255 ml 410 ml Intake Oral 120 ml IV Total 500 ml 855 ml 822 ml Tube Feeding 88 ml Output Urine Total 600 ml 500 ml # Voids 1 # Bowel Movements 0 Medical Decision Making Impression and Plan A: Small focal hemorrhage involving the right temporal lobe with prominent vasogenic edema. MRI with contrast reveals underlying right temporal lobe mass. P: Continue with neuro checks. Continue with Decadron Dr. Ibrahim returns tomorrow for further treatment Heraclio Pickens Sep 25, 2016 09:02
[2016-09-25 09:11] LABS: BANDS 1 % (0-6); POLYS (SEG NEUTROPHILS) 86 % (16-70); WBC DIFF SAMPLE 100
[2016-09-25 09:12] LABS: PLATELET ESTIMATE SMEAR NORMAL (NORMAL); PLATELET MORPHOLOGY NORMAL (NORMAL); SCAN/DIFF FINAL DIFF MANUAL
--- NOTE | 2016-09-25 09:15 | HHI.CCPN ---
Subjective Remarks/Hospital Course 71-year-old female who reportedly was diagnosed with schizophrenia but who does not take any medications chronically presented to [facility] with one week history of paranoia and hallucinations. She said she believed people were coming into her house uninvited. She drove to her ex-daughter in-laws house and this woman's new was there and tried to redirect her as she reportedly has a h/o intermittent paranoid delusions. He took her back to her home yesterday but she was having intermittent episodes of panic so she was brought in for psychiatry evaluation. While doing psychiatric clearance, ED CEMENT TESTER ASSISTANT and physician discovered that she had elevated troponin of 1.4 with normal CKMB fraction. Creatinine is normal at 0.63. Case was discussed with cardiology who recommended medical management including heparin. Before initiation of heparin, CT brain was obtained. This demonstrated small focal hemorrhage in right temporal lobe with large amount of vasogenic edema (without shift). Patient states she has had a bifrontal headache for about a week. No n/v/ seizures. She does state that she falls frequently (2-3 times in last 2 months) but denies head trauma. She states she has noticed some left leg weakness for about a week and she states she fell in [facility] about a week ago due to leg weakness. She has noticed some decreased sensation on the left leg as well. She denies any changes in vision or speech. She does have dysarthric speech, but she states this is chronic. She states she has been having intermittent "panic attacks" with episodes of SOB and discomfort in her chest. She states this improves when her family tries to calm her down. She denies exertional CP/ SOB or hemoptysis. She has noticed BLE pedal edema ~ 1 week. She denies prior h/ o stroke. States she saw Dr. Antonio with neurology in the past. She has atrial fibrillation but denies having been on anticoagulation 09/24 Patient was given Ativan/Haldol overnight for agitation and confusion. MRI brain wo contrast yesterday showed abnormality in the right parietal occipital region that does show some blood clots and vasogenic edema. For MRI brain with contrast and EEG today. 09/25: While sedation was held patient self extubated. Patient more awake today following commands. 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 Mar, radiologist) Objective Vital Signs Date Time Temp Pulse Resp B/P Pulse Ox O2 Delivery O2 Flow Rate FiO2 09/25/16 08:12 96 40 09/25/16 06:00 58 09/25/16 04:00 98.0 14 95/55 09/23/16 02:51 Room Air Intake and Output 09/24/16 09/24/16 09/25/16 08:00 16:00 00:00 Intake Total 600 ml 620 ml 855 ml Output Total 600 ml Balance 600 ml 620 ml 255 ml Result Diagram: 09/25/16 0615 09/25/1615 Other Results Microbiology Date/Time Procedure Status Source Growth 09/22/16 16:19 Urine Culture - Final Complete Urine Clean Catch 10-50,000 CFU/ML MIXED GRAM POSITIVE ... Laboratory Tests Test 09/24/16 17:18 Blood Gas Puncture Site RT RADIAL Blood Gas Patient Temperature 98.6 Blood Gas HCO3 19 mmol/L (22-26) Blood Gas Base Excess -5.1 mmol/L (-2-2) Blood Gas Oxygen Saturation 96 % (90-100) Arterial Blood pH 7.40 (7.380-7.420) Arterial Blood Partial 32 mmHg (38-42) Pressure CO2 Arterial Blood Partial 118 mmHg Pressure O2 (61-120) Arterial Blood Oxygen Content 16.1 Vol % (12.0-20.0) Arterial Blood 1.2 % (0-4) Carboxyhemoglobin Arterial Blood Methemoglobin 1.5 % (0-2) Blood Gas Hemoglobin 11.8 G/DL (12.0-16.0) Oxygen Delivery Device VENTILATOR Blood Gas Ventilator Setting 500/14/5PEEP Blood Gas Inspired Oxygen 40 % Imaging Last Impressions Lower Extremity Ultrasound 09/23/16 0000 Signed Impressions: Service Date/Time: Friday, September 23, 2016 11:17 - CONCLUSION: Negative exam with no evidence of deep venous thrombosis. Alo Barton MD Head Magnetic Resonance Angiography 09/23/16 0000 Signed Impressions: Service Date/Time: Friday, September 23, 2016 09:52 - CONCLUSION: Significant intracranial atherosclerotic disease, otherwise negative. Ciaran Davis MD FACR Brain MRI 09/23/16 0000 Signed Impressions: Service Date/Time: Friday, September 23, 2016 09:52 - CONCLUSION: Abnormality in the right parietal occipital region that does show some blood clots and vasogenic edema. This probably represents an ischemic event; however, the amount of vasogenic edema is concerning. MRI with contrast would be of benefit when the patient is clinically stable. Ciaran Davis MD FACR Chest X-Ray 09/22/16 2200 Signed Impressions: Service Date/Time: September 22:09 - CONCLUSION: No acute disease. Bon Garcia MD Head CT 09/22/16 0000 Signed Impressions: Service Date/Time: September 23:33 - CONCLUSION: 1. Small focal hemorrhage involving the right temporal lobe with prominent vasogenic edema. Underlying neoplasm is not excluded. MRI is recommended for further evaluation if clinically indicated. Benitez Choudhury MD Objective Remarks GENERAL: Patient is 71 yo with who just extubated. Somnolent but follows some commands SKIN: Warm and dry. HEAD: Normocephalic. EYES: No scleral icterus. No injection or drainage. NECK: Supple, trachea midline. No JVD or lymphadenopathy. CARDIOVASCULAR: Regular rate and rhythm without murmurs, gallops, or rubs. RESPIRATORY: Breath sounds equal bilaterally. No accessory muscle use. GASTROINTESTINAL: Abdomen soft, non-tender, nondistended. MUSCULOSKELETAL: No cyanosis, or edema. Neuro: Patient is somnolent but follows commands on all 4 extremities. Weaker on left side with 4 out of 5 power. Oriented to person, speech normal A/P Assessment and Plan NEURO: Acute R temporal lobe hemorrhage with edema. Right occipitotemporal mass 5x 3 cm on MRI Schizophrenia Anxiety MRI with contrast 09/24/16 shows Right occipitotemporal mass 5x 3 cm on MRI ? Glioma Continue Decadron 10 mg IV every 6 hours Maintain SBP <160 Dr. Ibrahim, following. Neurology Dr. Sheldon mueller Hold all sedation for possible extubation (patient self extubated while sedation was held) RESP: Acute respiratory failure Tobacco abuse Self extubated 09/25/16 about 0900 am currently on nasal cannula Continue DuoNeb every 6 hours scheduled and when necessary No stridor, protecting airway CV: Atrial fibrillation Elevated troponin -?neurogenic She received aspirin 324 in the ED. Not a candidate further antiplatelets due to intracerebral hemorrhage, mass. Cardizem drip for rate control of A fib Use labetalol/hydralazine as needed to maintain systolic blood pressure less than 160. GI: Speech therapy to evaluate swallow. Protonix for GI prophylaxis FEN/RENAL: Hyponatremia Hypokalemia She has received 1 L normal saline in the emergency department. Will follow-up sodium ID: Possible UTI Urinalysis shows 12 WBCs and trace leukocyte esterase. Continue Rocephin 1 g IV every 24 hours and follow up urine culture. HEME: Monitor CBC. Coags are normal D-dimer is elevated of unclear significance. She does have some pedal edema. PE seems less likely, and she is not a candidate for anticoagulation at this time so will defer further imaging currently. ENDO: Random cortisol appropriate, hemoglobin A1c 5.3 TSH is normal. PROPH: SCDs and teds for DVT prophylaxis. Pharmacologic DVT prophylaxis contraindicated due to intracerebral hemorrhage. Protonix 40 mg IV daily for stress ulcer prophylaxis. ACCESS: Peripheral IV providing adequate access at this time. She is hyponatremic with vasogenic edema. We'll need to consider central venous line if she has worsening hyponatremia and in need of hypertonic fluids. CCT 32 minutes exclusive of separately billable procedures. Alexis Crockett MD Sep 25, 2016 09:15
[2016-09-25] MEDS: LORazepam 2 MG/ML VIAL IV PUSH PRN ×2 (09:30→14:07)
[2016-09-25] MEDS: PANTOPRAZOLE SODIUM 40 MG VIAL IV SCH (09:40)
[2016-09-25] MEDS: CARVEDILOL 3.125 MG TAB PO SCH ×2 (09:40→20:26)
[2016-09-25] MEDS: SODIUM CHLORIDE 0.9% FLUSH 5 ML FLUSH IV FLUSH SCH ×2 (09:40→20:26)
[2016-09-25] MEDS: levETIRAcetam INJ 500 MG in SODIUM CHLORIDE 0.9% INJ 100 ML IV SCH ×2 (09:40→20:26)
--- NOTE | 2016-09-25 09:46 | HHI.PR ---
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 CT thorax to r/o other primary Diagnosis/Plan: Subjective Subjective Comments No acute events reported Active Medications Current Medications Medications (Trade) Dose Ordered Sig/Hardeep Route Start Time Stop Time Status Last Admin (D50w (Vial) Inj) 25 ml UNSCH PRN IV PUSH 09/23/16 03:00 (Glucagon Inj) 1 mg UNSCH PRN OTHER 09/23/16 03:00 Insulin Aspart 1 1 Q4H SQ 09/23/16 03:00 Potassium Chloride 100 ml @ 50 mls/hr Q2H PRN IV 09/23/16 03:00 (KCl 20 Meq Premix Inj) 100 ml @ 50 mls/hr Q2H PRN IV 09/23/16 03:00 Potassium Chloride 40 meq 40 meq UNSCH PRN PO/TUBE 09/23/16 03:00 Potassium Chloride 100 ml @ 25 mls/hr UNSCH PRN IV 09/23/16 03:00 Potassium Chloride 100 ml @ 50 mls/hr Q2H PRN IV 09/23/16 03:00 09/23/16 04:26 (Magnesium Sulfate Inj/NS Inj) 100 ml @ 50 mls/hr UNSCH PRN IV 09/23/16 03:00 Magnesium Oxide 800 mg 800 mg UNSCH PRN PO 09/23/16 03:00 (Magnesium Sulfate Inj/NS Inj) 100 ml @ 50 mls/hr UNSCH PRN IV 09/23/16 03:00 Potassium Phosphate 2000 mg 2,000 mg Q4H PRN PO 09/23/16 03:00 (Sodium Phosphate Inj/NS 250 ml Inj) 250 ml @ 42 mls/hr UNSCH PRN IV 09/23/16 03:00 (KCl 40 Meq/30 ml Liq) 40 meq UNSCH PRN PO/TUBE 09/23/16 03:00 Potassium Phosphate 2000 mg 2,000 mg UNSCH PRN PO/TUBE 09/23/16 03:00 Potassium Phosphate 30 mmol/ Sodium Chloride 260 ml @ 42 mls/hr UNSCH PRN IV 09/23/16 03:00 09/23/16 16:38 (Rocephin Inj/NS Inj) 100 ml @ 200 mls/hr Q24H IV 09/23/16 22:00 09/24/16 20:46 (Apresoline Inj) 10 mg Q4H PRN IV PUSH 09/23/16 03:30 (Trandate Inj) 10 mg Q4H PRN IV PUSH 09/23/16 03:30 (Ativan Inj) 0.5 mg Q4H PRN IV PUSH 09/23/16 03:30 09/24/16 20:45 (NS Flush) 2 ml UNSCH PRN IV FLUSH 09/23/16 03:30 (NS Flush) 2 ml BID IV FLUSH 09/23/16 09:00 09/25/16 09:40 (Protonix Inj) 40 mg DAILY IV 09/23/16 09:00 09/25/16 09:40 (Zofran Inj) 4 mg Q6H PRN IV 09/23/16 03:30 Miscellaneous Information 1 [id number] XX 09/23/16 03:30 09/23/16 03:30 (Chlorhexidine 2% Cloth) 3 pack Taper DAILY@04 TOP 09/23/16 04:00 09/19/17 03:59 09/24/16 21:37 (Chlorhexidine 2% Cloth) 3 pack UNSCH PRN TOP 09/23/16 03:30 Dexamethasone Sodium Phosphate 10 mg 10 mg Q6HR IV PUSH 09/23/16 13:15 09/25/16 04:18 (Keppra Inj/NS Inj) 105 ml @ 420 mls/hr Q12HR IV 09/23/16 21:00 09/25/16 09:40 (Haldol Inj) 2 mg Q6H PRN IV PUSH 09/24/16 01:00 09/24/16 05:36 Carvedilol 3.125 mg 3.125 mg Q12HR PO 09/24/16 09:00 09/25/16 09:40 Propofol 100 ml @ 0 mls/hr TITRATE IV 09/24/16 15:15 09/24/16 20:45 Fentanyl Citrate 250 ml @ 0 mls/hr TITRATE IV 09/24/16 15:15 09/24/16 15:23 (NS 1000 ml Inj) 1,000 ml @ 75 mls/hr [id number] IV 09/24/16 15:15 09/24/16 20:07 (Mannitol Inj) 25 gm Q6H IV 09/24/16 17:00 09/25/16 04:17 Allergies Allergies Coded Allergies Codeine (Verified Allergy, Severe, 09/22/16) Exam I&O / VS 09/24/16 09/24/16 09/25/16 15:00 23:00 07:00 Intake Total 620 ml 855 ml 910 ml Output Total 600 ml 500 ml Balance 620 ml 255 ml 410 ml Intake Oral 120 ml IV Total 500 ml 855 ml 822 ml Tube Feeding 88 ml Output Urine Total 600 ml 500 ml # Voids 1 # Bowel Movements 0 Vital Signs Date Time Temp Pulse Resp B/P Pulse Ox O2 Delivery O2 Flow Rate FiO2 09/25/16 09:04 94 Nasal Cannula 4 09/25/16 08:12 96 40 09/25/16 06:00 58 09/25/16 04:02 94 40 09/25/16 04:00 40 09/25/16 04:00 98.0 59 14 95/55 95 09/25/16 04:00 59 09/25/16 02:00 58 09/25/16 01:11 96 40 09/25/16 00:00 60 09/25/16 00:00 40 09/25/16 00:00 98.4 60 14 104/63 96 09/24/16 22:00 58 09/24/16 20:13 97 40 09/24/16 20:00 40 09/24/16 20:00 98.4 59 14 91/56 97 09/24/16 20:00 59 09/24/16 18:00 55 09/24/16 16:00 62 09/24/16 16:00 98.4 62 14 82/52 98 09/24/16 15:15 100 100 09/24/16 15:08 99 50 09/24/16 14:00 104 09/24/16 12:00 98 09/24/16 12:00 98.2 98 35 141/94 100 09/24/16 10:00 100 Exam Comments alert, less aggitated. Follows commands. CN 2-12 normal Motor 5/5 BUE and BLE Objective Radiology Results MRI brain with contrast is consistent with a right temporal occipital tumor with contrast enhancement Micro and Labs Laboratory Tests Test 09/24/16 09/24/16 09/25/16 16:45 17:18 06:15 Urine Osmolality 475 Blood Gas Puncture Site RT RADIAL Blood Gas Patient Temperature 98.6 Blood Gas HCO3 19 Blood Gas Base Excess -5.1 Blood Gas Oxygen Saturation 96 Arterial Blood pH 7.40 Arterial Blood Partial 32 Pressure CO2 Arterial Blood Partial 118 Pressure O2 Arterial Blood Oxygen Content 16.1 Arterial Blood 1.2 Carboxyhemoglobin Arterial Blood Methemoglobin 1.5 Blood Gas Hemoglobin 11.8 Oxygen Delivery Device VENTILATOR Blood Gas Ventilator Setting 500/14/5PEEP Blood Gas Inspired Oxygen 40 White Blood Count 12.7 Red Blood Count 4.02 Hemoglobin 12.0 Hematocrit 35.4 Mean Corpuscular Volume 88.1 Mean Corpuscular Hemoglobin 29.8 Mean Corpuscular Hemoglobin 33.8 Concent Red Cell Distribution Width 14.3 Platelet Count 253 Mean Platelet Volume 9.3 Neutrophils (%) (Auto) 81.3 Lymphocytes (%) (Auto) 8.7 Monocytes (%) (Auto) 9.9 Eosinophils (%) (Auto) 0.0 Basophils (%) (Auto) 0.1 Neutrophils # (Auto) 10.4 Lymphocytes # (Auto) 1.1 Monocytes # (Auto) 1.3 Eosinophils # (Auto) 0.0 Basophils # (Auto) 0.0 CBC Comment AUTO DIFF Differential Total Cells 100 Counted Neutrophils % (Manual) 86 Band Neutrophils % 1 Lymphocytes % 8 Monocytes % 5 Neutrophils # (Manual) 11.0 Differential Comment FINAL DIFF MANUAL Platelet Estimate NORMAL Platelet Morphology Comment NORMAL Red Cell Morphology Comment NORMAL Sodium Level 143 Potassium Level 3.7 Chloride Level 111 Carbon Dioxide Level 20.6 Anion Gap 11 Blood Urea Nitrogen 18 Creatinine 0.60 Estimat Glomerular Filtration 98 Rate Random Glucose 110 Calcium Level 8.3 Phosphorus Level 3.5 Magnesium Level 2.4 Date/Time Procedure Status Source Growth 09/22/16 16:19 Urine Culture - Final Complete Urine Clean Catch 10-50,000 CFU/ML MIXED GRAM POSITIVE ... Jerman Chung PhD MD Sep 25, 2016 09:46
[2016-09-25] MEDS: DEXMEDETOMIDINE INJ 50 ML IV SCH ×4 (14:13→22:09)
[2016-09-25] MEDS ORDERED: IOHEXOL 350 MG/ML 10 ML VIAL (for RAD DIAG) IV ONE (16:49)
--- NOTE | 2016-09-25 17:38 | RADRPT ---
EXAM DATE/TIME: 09/25/2016 16:38 [facility] COMPARISON: No previous studies available for comparison. INDICATIONS : Evaluate for metastatic disease. IV CONTRAST: 100 cc Omnipaque 350 (iohexol) IV ; Cumulative dose for multiple exams. ORAL CONTRAST: No oral contrast ingested. RADIATION DOSE: 19.43 CTDIvol (mGy) ; Combined studies - Thorax/Abdomen/Pelvis MEDICAL HISTORY : Cardiovascular disease. SURGICAL HISTORY : Hysterectomy. ENCOUNTER: Initial ACUITY: 1 day PAIN SCALE: Non-responsive LOCATION: Bilateral abdomen. TECHNIQUE: Volumetric scanning of the abdomen and pelvis was performed. Using automated exposure control and ad justment of the mA and/or kV according to patient size, radiation dose was kept as low as reasonably achievable to obtain optimal diagnostic quality images. FINDINGS: On the initial image filling defects are seen in the segmental branches of the inferior right pulmona ry artery characteristic of pulmonary embolic disease. Minimal basilar density in the lungs most jc acteristic of atelectasis. Mild fatty liver. Spleen, adrenals, kidneys and pancreas unremarkable. Small hepatic cyst noted. No c alcified gallstones or biliary ductal dilatation. No adenopathy within the abdomen pelvis. Armstrong catheter present within the bladder. No acute bony abn ormalities. CONCLUSION: 1. Positive for pulmonary embolus right lower lobe. 2. No evidence for metastatic disease within the abdomen and pelvis. Eleuterio Pyle MD on September 25, 2016 at 17:32 Board Certified Radiologist. This report was verified electronically.
--- NOTE | 2016-09-25 17:41 | RADRPT ---
EXAM DATE/TIME: 09/25/2016 16:38 [facility] COMPARISON: No previous studies available for comparison. INDICATIONS : Evaluate for metistatic disease. IV CONTRAST: 100 cc Omnipaque 350 (iohexol) IV ; Cumulative dose for multiple exams. RADIATION DOSE: 19.43 CTDIvol (mGy) ; Combined studies - Thorax/Abdomen/Pelvis MEDICAL HISTORY : Cardiovascular disease. Right temporal lobe neoplasm. SURGICAL HISTORY : Hysterectomy. ENCOUNTER: Initial ACUITY: 1 day PAIN SCALE: Non-responsive LOCATION: Bilateral chest TECHNIQUE: Volumetric scanning of the chest was performed. Using automated exposure control and adjustment of t he mA and/or kV according to patient size, radiation dose was kept as low as reasonably achievable to obtain optimal diagnostic quality images. FINDINGS: There is a filling defect in the right lower lobe pulmonary artery extending into segmental branches characteristic of pulmonary embolic disease. There is scattered opacity in the lungs, likely scattered atelectasis with some mild air trapping. There is no hilar, mediastinal or axillary adenopathy. Moderate coronary calcifications. No pleural p ericardial effusion. No acute findings in the upper abdomen. CONCLUSION: 1. Positive for pulmonary embolic disease. 2. No evidence for metastatic disease to the thorax. Eleuterio Pyle MD on September 25, 2016 at 17:37 Board Certified Radiologist. This report was verified electronically.
[2016-09-25] MEDS: SODIUM CHLOR 0.9% 1000 ML INJ 1,000 ML IV SCH (18:35)
[2016-09-25 20:25] LABS: HEMATOCRIT 35.8 % (35.0-46.0); MEAN CELL VOLUME 88.1 FL (80.0-100.0); MEAN CORPUSCULAR HEMOGLOBIN 30.2 PG (27.0-34.0); MEAN CORPUSCULAR HGB CONC 34.3 % (32.0-36.0); PLATELET COUNT 216 TH/MM3 (150-450); RED BLOOD COUNT 4.07 MIL/MM3 (4.00-5.30); RED CELL DISTRIBUTION WIDTH 14.5 % (11.6-17.2); REVIEW FLAG FINAL; WHITE BLOOD COUNT 10.2 TH/MM3 (4.0-11.0)
[2016-09-25] MEDS: HEPARIN-D5W INJ 250 ML IV SCH (20:30)
[2016-09-25 20:41] LABS: INTERNATIONAL NORMALIZED RATIO 1.1 RATIO; PROTHROMBIN TIME - PATIENT 12.1 SEC (9.8-11.6)
[2016-09-25] MEDS: cefTRIAXone INJ 1,000 MG in SODIUM CHLORIDE 0.9% INJ 100 ML IV SCH (22:09)
[2016-09-26] VITALS (12 sets, daily range): BP systolic 116–146; BP diastolic 68–97; PULSE 53–89; RESP 18–28; TEMP 97.5–98.4; O2SAT 93–99
[2016-09-26 01:09] LABS: APTT (PATIENT) 62.5 SEC (24.3-30.1)
[2016-09-26] MEDS: INSULIN ASPART SUPPLEMENTAL SCALE SQ SCH ×6 (03:00→23:00)
[2016-09-26] MEDS: DEXMEDETOMIDINE INJ 50 ML IV SCH ×5 (03:31→23:38)
[2016-09-26] MEDS: CHLORHEXIDINE GLUCONATE 2 % 1 PACK (2 CLOTHS) TOP SCH (03:31)
[2016-09-26] MEDS: RESP: ALBUTEROL 2.5 MG/IPRATROPIUM 0.5 MG NEB (SCH) NEB ×4 (03:49→20:40)
[2016-09-26] MEDS: MANNITOL 12.5 GM/50 ML VIAL IV SCH ×3 (05:00→16:54)
--- NOTE | 2016-09-26 05:03 | RADRPT ---
EXAM DATE/TIME: 09/26/2016 03:22 [facility] COMPARISON: CHEST SINGLE AP, September 24, 2016, 15:17. INDICATIONS : Shortness of breath, possible pulmonary disease. MEDICAL HISTORY : A-fib SURGICAL HISTORY : Tonsillectomy. Hysterectomy. Tubal ligation. ENCOUNTER: Subsequent ACUITY: 3 days PAIN SCORE: Non-responsive. LOCATION: Bilateral chest FINDINGS: A single view of the chest demonstrates the lungs to be symmetrically aerated without evidence of mas s, infiltrate or effusion. The cardiomediastinal contours are unremarkable. Osseous structures are intact. CONCLUSION: No acute disease. Bon Garcia MD on September 26, 2016 at 5:01 Board Certified Radiologist. This report was verified electronically.
[2016-09-26] MEDS: DEXAMETHASONE SOD PHOS 4 MG/ML VIAL IV PUSH SCH ×4 (05:04→18:27)
[2016-09-26] MEDS: SODIUM CHLOR 0.9% 1000 ML INJ 1,000 ML IV SCH ×2 (05:05→21:11)
[2016-09-26 07:08] LABS: AUTOMATED NEUTROPHIL # 7.3 TH/MM3 (1.8-7.7); BASOPHIL % 0.3 % (0.0-2.0); HEMO FLAGS DIFF FINAL; LYMPH % 11.5 % (9.0-44.0); MEAN CELL VOLUME 88.7 FL (80.0-100.0); MEAN CORPUSCULAR HEMOGLOBIN 30.1 PG (27.0-34.0); NEUT % 82.2 % (16.0-70.0); PLATELET COUNT 212 TH/MM3 (150-450); RED BLOOD COUNT 4.06 MIL/MM3 (4.00-5.30); RED CELL DISTRIBUTION WIDTH 14.6 % (11.6-17.2); WHITE BLOOD COUNT 8.9 TH/MM3 (4.0-11.0)
[2016-09-26 07:34] LABS: APTT (PATIENT) 128.8 SEC (24.3-30.1)
--- NOTE | 2016-09-26 07:40 | HHI.CCPN ---
Subjective Remarks/Hospital Course 71-year-old female who reportedly was diagnosed with schizophrenia but who does not take any medications chronically presented to [facility] with one week history of paranoia and hallucinations. She said she believed people were coming into her house uninvited. She drove to her ex-daughter in-laws house and this woman's new was there and tried to redirect her as she reportedly has a h/o intermittent paranoid delusions. He took her back to her home yesterday but she was having intermittent episodes of panic so she was brought in for psychiatry evaluation. While doing psychiatric clearance, ED TRIAL MGR and physician discovered that she had elevated troponin of 1.4 with normal CKMB fraction. Creatinine is normal at 0.63. Case was discussed with cardiology who recommended medical management including heparin. Before initiation of heparin, CT brain was obtained. This demonstrated small focal hemorrhage in right temporal lobe with large amount of vasogenic edema (without shift). Patient states she has had a bifrontal headache for about a week. No n/v/ seizures. She does state that she falls frequently (2-3 times in last 2 months) but denies head trauma. She states she has noticed some left leg weakness for about a week and she states she fell in [facility] about a week ago due to leg weakness. She has noticed some decreased sensation on the left leg as well. She denies any changes in vision or speech. She does have dysarthric speech, but she states this is chronic. She states she has been having intermittent "panic attacks" with episodes of SOB and discomfort in her chest. She states this improves when her family tries to calm her down. She denies exertional CP/ SOB or hemoptysis. She has noticed BLE pedal edema ~ 1 week. She denies prior h/ o stroke. States she saw Dr. Antonio with neurology in the past. She has atrial fibrillation but denies having been on anticoagulation 09/24 Patient was given Ativan/Haldol overnight for agitation and confusion. MRI brain wo contrast yesterday showed abnormality in the right parietal occipital region that does show some blood clots and vasogenic edema. For MRI brain with contrast and EEG today. 09/25: While sedation was held patient self extubated. Patient more awake today following commands. 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 Mar, radiologist) 09/26 No acute events overnight. On Precedex drip for agitation and heparin drip for PE. Afebrile. Objective Vital Signs Date Time Temp Pulse Resp B/P Pulse Ox O2 Delivery O2 Flow Rate FiO2 09/26/16 06:00 58 09/26/16 04:00 98.0 28 146/68 94 09/25/16 21:09 21 09/25/16 09:04 Nasal Cannula 4 Intake and Output 09/25/16 09/25/16 09/26/16 08:00 16:00 00:00 Intake Total 910 ml 1231 ml 710 ml Output Total 500 ml 400 ml 400 ml Balance 410 ml 831 ml 310 ml Result Diagram: 09/26/16 0550 09/25/16614 Other Results Laboratory Tests Test 09/25/16 09/25/16 09/26/16 09/26/16 20:05 20:08 00:48 05:50 White Blood Count 10.2 TH/MM3 8.9 TH/MM3 Red Blood Count 4.07 MIL/MM3 4.06 MIL/MM3 Hemoglobin 12.3 GM/DL 12.2 GM/DL Hematocrit 35.8 % 36.0 % Mean Corpuscular Volume 88.1 FL 88.7 FL Mean Corpuscular Hemoglobin 30.2 PG 30.1 PG Mean Corpuscular Hemoglobin 34.3 % 34.0 % Concent Red Cell Distribution Width 14.5 % 14.6 % Platelet Count 216 TH/MM3 212 TH/MM3 Mean Platelet Volume 8.8 FL 9.6 FL Prothrombin Time 12.1 SEC Prothromb Time International 1.1 RATIO Ratio Activated Partial 21.0 SEC 62.5 SEC Thromboplast Time Neutrophils (%) (Auto) 82.2 % Lymphocytes (%) (Auto) 11.5 % Monocytes (%) (Auto) 6.0 % Eosinophils (%) (Auto) 0.0 % Basophils (%) (Auto) 0.3 % Neutrophils # (Auto) 7.3 TH/MM3 Lymphocytes # (Auto) 1.0 TH/MM3 Monocytes # (Auto) 0.5 TH/MM3 Eosinophils # (Auto) 0.0 TH/MM3 Basophils # (Auto) 0.0 TH/MM3 CBC Comment DIFF FINAL Differential Comment Imaging Last Impressions Chest X-Ray 09/26/16 0600 Signed Impressions: Service Date/Time: Monday, September 26, 2016 03:22 - CONCLUSION: No acute disease. Bon Garcia MD Chest CT 09/25/16 0000 Signed Impressions: Service Date/Time: Sunday, September 25, 2016 16:38 - CONCLUSION: 1. Positive for pulmonary embolic disease. 2. No evidence for metastatic disease to the thorax. Eleuterio Pyle MD Abdomen/Pelvis CT 09/25/16 0000 Signed Impressions: Service Date/Time: Sunday, September 25, 2016 16:38 - CONCLUSION: 1. Positive for pulmonary embolus right lower lobe. 2. No evidence for metastatic disease within the abdomen and pelvis. Eleuterio Pyle MD Neck Magnetic Resonance Angiography 09/24/16 0000 Signed Impressions: Service Date/Time: Saturday, September 24, 2016 14:31 - CONCLUSION: Normal examination for a patient of this age. Eleuterio Pyle MD Lower Extremity Ultrasound 09/23/16 0000 Signed Impressions: Service Date/Time: Friday, September 23, 2016 11:17 - CONCLUSION: Negative exam with no evidence of deep venous thrombosis. Alo Barton MD Head Magnetic Resonance Angiography 09/23/16 0000 Signed Impressions: Service Date/Time: Friday, September 23, 2016 09:52 - CONCLUSION: Significant intracranial atherosclerotic disease, otherwise negative. Ciaran Davis MD FACR Brain MRI 09/23/16 0000 Signed Impressions: Service Date/Time: Friday, September 23, 2016 09:52 - CONCLUSION: Abnormality in the right parietal occipital region that does show some blood clots and vasogenic edema. This probably represents an ischemic event; however, the amount of vasogenic edema is concerning. MRI with contrast would be of benefit when the patient is clinically stable. Ciaran Davis MD FACR Head CT 09/22/16 0000 Signed Impressions: Service Date/Time: September 23:33 - CONCLUSION: 1. Small focal hemorrhage involving the right temporal lobe with prominent vasogenic edema. Underlying neoplasm is not excluded. MRI is recommended for further evaluation if clinically indicated. Benitez Choudhury MD Objective Remarks GENERAL: Patient is 71 yo with who is self extubated. Somnolent but follows some commands SKIN: Warm and dry. HEAD: Normocephalic. EYES: No scleral icterus. No injection or drainage. NECK: Supple, trachea midline. No JVD or lymphadenopathy. CARDIOVASCULAR: Regular rate and rhythm without murmurs, gallops, or rubs. RESPIRATORY: Breath sounds equal bilaterally. No accessory muscle use. GASTROINTESTINAL: Abdomen soft, non-tender, nondistended. MUSCULOSKELETAL: No cyanosis, or edema. Neuro: Patient is somnolent but follows commands on all 4 extremities. Weaker on left side with 4 out of 5 power. A/P Assessment and Plan NEURO: Acute R temporal lobe hemorrhage with edema. 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 Gomez for possible resection tomorrow. Neurology Dr. Chung following RESP: Acute respiratory failure PE RLL Tobacco abuse Self extubated 09/25/16 about 0900 am Continue DuoNeb every 6 hours scheduled and when necessary Aspiration precautions On Heparin drip for PE CV: Atrial fibrillation Elevated troponin -?neurogenic She received aspirin 324 in the ED. Not a candidate further antiplatelets due to intracerebral hemorrhage, mass. Use labetalol/hydralazine as needed to maintain systolic blood pressure less than 160. GI: Speech therapy to evaluate swallow. Protonix for GI prophylaxis FEN/RENAL: Monitor renal function, I/O's, electrolytes replacement per protocol. On NS@75ml/hr ID: Possible UTI Urinalysis shows 12 WBCs and trace leukocyte esterase. Continue Rocephin 1 g IV every 24 hours HEME: Monitor CBC. Coags are normal, on Heparin drip. Heme eval Discussed with Dr. Ibrahim will proceed with IVC filter placement and d/c heparin once IVC filter is placed. ENDO: Random cortisol appropriate, hemoglobin A1c 5.3 TSH is normal. PROPH: SCDs and teds for DVT prophylaxis. On Heparin drip for PE Protonix 40 mg IV daily for stress ulcer prophylaxis. ACCESS: Peripheral IV providing adequate access at this time. Palliative care eval to asses with goals of care Level 3 Lyudmila Johnson MD Sep 26, 2016 07:39
[2016-09-26 07:47] LABS: ALKALINE PHOSPHATASE 70 U/L (45-117); ALT (GPT) 30 U/L (10-53); ANION GAP 11 MEQ/L (5-15); AST (GOT) 16 U/L (15-37); BICARBONATE 20.7 MEQ/L (21.0-32.0); BLOOD UREA NITROGEN 24 MG/DL (7-18); CHLORIDE 110 MEQ/L (98-107); GLOMERULAR FILTRATION RATE 88 ML/MIN (>89); MAGNESIUM 2.6 MG/DL (1.5-2.5); POTASSIUM 3.7 MEQ/L (3.5-5.1); SODIUM (NA) 142 MEQ/L (136-145); TOTAL BILIRUBIN ADULT 0.4 MG/DL (0.2-1.0)
--- NOTE | 2016-09-26 08:35 | RADRPT ---
EXAM DATE/TIME: 09/26/2016 08:07 [place] COMPARISON: CT BRAIN W/O CONTRAST, September 22, 2016, 23:33. INDICATIONS : Evaluate hemorrhagic lesion RADIATION DOSE: 62.86 CTDIvol (mGy) MEDICAL HISTORY : None SURGICAL HISTORY : None. ENCOUNTER: Initial ACUITY: 4 - 6 days PAIN SCALE: Non-responsive LOCATION: cranial TECHNIQUE: Multiple contiguous axial images were obtained of the head. Using automated exposure control and adj ustment of the mA and/or kV according to patient size, radiation dose was kept as low as reasonably a chievable to obtain optimal diagnostic quality images. FINDINGS: Hemorrhage and vasogenic edema in the right temporal and occipital regions are grossly unchanged. Mil d effacement of regional cortical sulci again noted. No significant global brain shift. No drainable hemorrhagic collections. Contralateral left hemisphere is stable and benign in appearance. CONCLUSION: No significant change Bon Iyer MD on September 26, 2016 at 8:28 Board Certified Radiologist. This report was verified electronically.
[2016-09-26] MEDS: LORazepam 2 MG/ML VIAL IV PUSH PRN (08:56)
[2016-09-26] MEDS: CARVEDILOL 3.125 MG TAB PO SCH ×2 (09:00→21:11)
[2016-09-26] MEDS: levETIRAcetam INJ 500 MG in SODIUM CHLORIDE 0.9% INJ 100 ML IV SCH ×2 (09:02→21:12)
[2016-09-26] MEDS: SODIUM CHLORIDE 0.9% FLUSH 5 ML FLUSH IV FLUSH SCH ×2 (09:02→21:12)
[2016-09-26] MEDS: PANTOPRAZOLE SODIUM 40 MG VIAL IV SCH (09:02)
[2016-09-26 10:36] LABS: APTT (PATIENT) 64.7 SEC (24.3-30.1)
--- NOTE | 2016-09-26 11:32 | PD.CONS ---
Consult Service Palliative Care Consult Requested By Dr. Alex MD. Primary Care Physician Unknown Reason for Consultation a. To assist with evaluation and management of symptoms including: restlessness/agitation. b. To assist medical decision maker(s) with: better understanding of current medical conditions; weighing benefits/burdens of medical treatment options; making medical treatment decisions. . HPI History of Present Illness Mrs. Bay is a 71-year-old female with a past history of atrial fibrillation not on anticoagulation and questionable schizophrenia. It was reported that schizophrenia was diagnosing in the but patient was not compliant with medications. Patient was brought to the ED on 09/22/16 for a psychiatric evaluation with history of hallucinations, panic attacks and paranoia since the previous week. While in the ED, she was found to have elevated troponin of 1.4 with normal CK-MB. CT of the brain was obtained showing small focal hemorrhage in the right temporal lobe with large amount of vasogenic edema. Patient reported history of headaches and frequent falls but denied any head trauma. Patient also endorsed left leg weakness and and loss of sensation. Chest x-ray showed no acute disease. Head MRA showing significant intracranial atherosclerotic disease. Brain MRI 09/23/16 showing abnormality in the right parietal-occipital region that shows some blood clots and vasogenic edema. Neck MRA 09/24/16 normal for a patient of her age. Toxicology negative. Urine culture negative. * Neurosurgery -Dr. Ibrahim consulted on 09/23/16 for evaluation of temporal hematoma. MRI of the brain with and without contrast was recommended. * Neurology -Dr. Chung consulted on 09/23/16 to evaluate abnormal brain MRI results and cerebral hemorrhage. Patient was started empirically on Keppra. EEG obtained on 09/24/16 indicating mild encephalopathy. 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 Patient was placed on Decadron. Possible resection on . * Cardiology -Dr. Park consulted on 09/23/16 secondary to elevated troponin. Most likely an NSTEMI type, medical management recommended. Echo obtained on 09/23/16 showing EF of 30-35%. EKG 09/23/16 showing sinus tachycardiac. * Chest CT obtained on 09/25/16 positive for pulmonary embolic disease to right lower lobe. CT of abdomen and pelvis January 1817 negative for acute process and no evidence of metastatic disease within the abdomen and pelvis. Patient was placed on heparin drip due to high risk of recurrent PE. Follow-up head CT showing no significant changes. Plan for IVC filter placement, patient at high risk of intracranial hemorrhage. Pending hematology consult. * On 09/24/16 patient required emergent intubation and mechanical ventilation for airway protection secondary to worsening mental status and desaturation. Patient was placed on Precedex for management of restlessness/agitation. On while on sedation, patient self extubated. She is now on room air and tolerating well. Palliative care has been consulted to assist with clarifications of goals of care given patient's high risk for further complications and . Patient seen in ICU, she was sedated on Precedex but arousable to voice and tactile stimuli. Opening eyes briefly, following sleep easily. Answering to yes/no questions by nodding head. Denied pain, shortness of breath or discomfort. Unable to elaborate any further. Patient afebrile, stable BP, tolerating room air. Laboratory today including WBC 8.9, Hgb 12.2, platelet count 212. Sodium 142, potassium 3.7, BUN/creatinine 24/0.66. Albumin 3.2. Chest x-ray 09/26/16 showing no acute process. Spoke with Judith Demetrius, she presented herself as patient's daughter. She later told me she is pt's former [id number] but has been taking care of her for over 20 years. She tells me that advance directives have been completed and that she is the designated healthcare surrogate. Pending documentation. Judith tells me that patient has 3 children but she is the only one locally. Prior to these hospitalization, patient was residing independently. Intermittently using cane/walker but able to do ADLs independently. Patient driving, grocery shopping, and functioning without much assistance. Family reports that within the last month or so, patient has been reporting some panic attacks, hallucinations and falls which have worsened during the past week. Daughter reports that patient has never been diagnosed with schizophrenia but has had history of anxiety/depression. Review events leading to his hospitalization, clinical course and treatment plan. Reviewed MRI of the brain results with a differential diagnosis of glioma. Daughter Judith tells me that her daughter is also a nurse practitioner and has been relying to her for further clarification. Reviewed proposed treatment plan to include IVC filter - pending hematology consultation, and possible resection of brain tumor. Discussed risks, benefits and limitations of CPR, intubation and mechanical ventilation given patient's current medical condition. Family wishing to continue with full CODE STATUS while awaiting to discuss treatment plan with hematology and neurosurgery. Daughter verbalized that patient's quality of life is very important and that if any treatment options does not offer improved quality of life or the risks outweigh any benefits, family would transition patient to comfort directed care. For now, goals are aggressive. Ongoing emotional support and active listening provided. Palliative care contact information has been provided. Case discussed with bedside RN and Dr. Johnson. . Function/Cognitive Trajectory Prior to these hospitalization, patient was residing independently. Intermittently using cane/walker but able to do ADLs independently. Patient driving, grocery shopping, and functioning without much assistance. Family reports that within the last month or so, patient has been reporting some panic attacks, hallucinations and falls which have worsened during the past week. . Review of Systems ROS Limitations: Clinical Condition, Altered Mental Status, Other (sedated, on Precedex) Constitutional: DENIES: Fever, Change in appetite Endocrine: COMPLAINS OF: Abnorml menstrual pattern, DENIES: Heat/cold intolerance Eyes: DENIES: Eye inflammation Ears, nose, mouth, throat: DENIES: Hearing loss, Nasal discharge Respiratory: DENIES: Apneas, Cough, Shortness of breath Gastrointestinal: DENIES: Abdominal pain, Constipation, Diarrhea Musculoskeletal: DENIES: Back pain Integumentary: DENIES: Abnormal pigmentation Hematologic/Lymphatics: DENIES: Bruising Immunologic/Allergic: DENIES: Eczema Neurologic: COMPLAINS OF: Abnormal gait, Headache, Localized weakness, Poor Balance Psychiatric: COMPLAINS OF: Anxiety, Confusion, Hallucinations, Agitation Other ROS: Limited ROS secondary to patient's clinical condition. ROS obtained from medical records, patient's family, and clinical presentation. Past Family Social History Coded Allergies: Codeine (Verified Allergy, Severe, 09/22/16) Past Medical History Atrial fibrillation Anxiety Depression . Past Surgical History Hysterectomy Facelift . Reported Medications No medications at home. . Current Medications Medications (Trade) Dose Ordered Sig/Hardeep Route Start Time Stop Time Status Last Admin (D50w (Vial) Inj) 25 ml UNSCH PRN IV PUSH 09/23/16 03:00 (Glucagon Inj) 1 mg UNSCH PRN OTHER 2/17/17 03:00 Insulin Aspart 1 1 Q4H SQ 09/23/16 03:00 Potassium Chloride 100 ml @ 50 mls/hr Q2H PRN IV 09/23/16 03:00 (KCl 20 Meq Premix Inj) 100 ml @ 50 mls/hr Q2H PRN IV 09/23/16 03:00 Potassium Chloride 40 meq 40 meq UNSCH PRN PO/TUBE 09/23/16 03:00 Potassium Chloride 100 ml @ 25 mls/hr UNSCH PRN IV 09/23/16 03:00 Potassium Chloride 100 ml @ 50 mls/hr Q2H PRN IV 09/23/16 03:00 09/23/16 04:26 (Magnesium Sulfate Inj/NS Inj) 100 ml @ 50 mls/hr UNSCH PRN IV 09/23/16 03:00 Magnesium Oxide 800 mg 800 mg UNSCH PRN PO 09/23/16 03:00 (Magnesium Sulfate Inj/NS Inj) 100 ml @ 50 mls/hr UNSCH PRN IV 09/23/16 03:00 Potassium Phosphate 2000 mg 2,000 mg Q4H PRN PO 09/23/16 03:00 (Sodium Phosphate Inj/NS 250 ml Inj) 250 ml @ 42 mls/hr UNSCH PRN IV 09/23/16 03:00 (KCl 40 Meq/30 ml Liq) 40 meq UNSCH PRN PO/TUBE 09/23/16 03:00 Potassium Phosphate 2000 mg 2,000 mg UNSCH PRN PO/TUBE 09/23/16 03:00 Potassium Phosphate 30 mmol/ Sodium Chloride 260 ml @ 42 mls/hr UNSCH PRN IV 09/23/16 03:00 09/23/16 16:38 (Rocephin Inj/NS Inj) 100 ml @ 200 mls/hr Q24H IV 09/23/16 22:00 09/25/16 22:09 (Apresoline Inj) 10 mg Q4H PRN IV PUSH 09/23/16 03:30 (Trandate Inj) 10 mg Q4H PRN IV PUSH 09/23/16 03:30 (Ativan Inj) 0.5 mg Q4H PRN IV PUSH 09/23/16 03:30 09/26/16 08:56 (NS Flush) 2 ml UNSCH PRN IV FLUSH 09/23/16 03:30 (NS Flush) 2 ml BID IV FLUSH 09/23/16 09:00 09/26/16 09:02 (Protonix Inj) 40 mg DAILY IV 09/23/16 09:00 09/26/16 09:02 (Zofran Inj) 4 mg Q6H PRN IV 09/23/16 03:30 Miscellaneous Information 1 [id number] XX 09/23/16 03:30 09/23/16 03:30 (Chlorhexidine 2% Cloth) 3 pack Taper DAILY@04 TOP 09/23/16 04:00 09/19/17 03:59 09/26/16 03:31 (Chlorhexidine 2% Cloth) 3 pack UNSCH PRN TOP 09/23/16 03:30 Dexamethasone Sodium Phosphate 10 mg 10 mg Q6HR IV PUSH 09/23/16 13:15 09/26/16 05:04 (Keppra Inj/NS Inj) 105 ml @ 420 mls/hr Q12HR IV 09/23/16 21:00 09/26/16 09:02 (Haldol Inj) 2 mg Q6H PRN IV PUSH 09/24/16 01:00 09/24/16 05:36 Carvedilol 3.125 mg 3.125 mg Q12HR PO 09/24/16 09:00 09/25/16 09:40 (NS 1000 ml Inj) 1,000 ml @ 75 mls/hr [id number] IV 09/24/16 15:15 09/26/16 05:05 Mannitol 25 gm 25 gm Q6H IV 09/24/16 17:00 09/26/16 05:00 Dexmedetomidine HCl 50 ml @ 0 mls/hr TITRATE IV 09/25/16 13:30 09/26/16 09:10 (Heparin-D5W Inj) 250 ml @ 0 mls/hr TITRATE IV 09/25/16 18:15 09/25/16 20:30 Family History Father -AR Paternal grandmother -gastric cancer Denies family history of stroke or cancer. . Substance Use Tobacco: Former smoker. Quit in 1993. Smoked 3 packs of cigarette per day since age 10. Alcohol: Denies. Prescription med abuse: Denies. Illicits: Denies. . Psychosocial History Resides independently. Retired. . Has 3 children, daughter Judith lives locally. . Spiritual/Cultural Factors [employer]. . Living Will: Completed, but not made available Health Care Surrogate: Completed, but not made available Durable Power of Seating And Mobility Technologist: Completed, but not made available Health Care Surrogate(s): Judith Romo presented herself as patient's daughter -she later reports being pt 's former [id number], she reports that advanced directives/healthcare surrogate designation has been completed by patient naming her as HCS. Judith to provide copy of documentation. . Documented care wishes: Pending copies of living will. . Family/friends goals: Family wishing to continue full CODE STATUS while awaiting to discuss treatment plan with hematology, bridge leverman and neurosurgery. Daughter verbalized that patient's quality of life is very important and that if any treatment options does not offer improved quality of life or the risks outweigh any benefits, family would transition patient to comfort directed care. For now, goals are aggressive. . Ethical and Legal Issues Pending designation of health-care surrogate naming [id number] Judith as HCS. . Physical Exam Vital Signs Date Time Temp Pulse Resp B/P Pulse Ox O2 Delivery O2 Flow Rate FiO2 09/26/16 08:00 78 09/26/16 08:00 97.5 78 21 116/97 93 09/26/16 06:00 58 09/26/16 04:00 98.0 89 28 146/68 94 09/26/16 04:00 89 09/26/16 02:00 53 09/26/16 00:00 55 09/26/16 00:00 97.6 55 20 132/75 96 09/25/16 22:00 90 09/25/16 21:09 95 21 09/25/16 20:00 53 09/25/16 20:00 97.4 53 27 124/73 93 09/25/16 18:00 58 09/25/16 16:00 98.3 57 17 105/61 22 09/25/16 16:00 57 09/25/16 14:00 111 09/25/16 12:00 82 09/25/16 12:00 98.1 82 17 134/77 94 09/25/16 09/26/16 19:00 07:00 Intake Total 1231 ml 1438 ml Output Total 400 ml 800 ml Balance 831 ml 638 ml Intake Oral 240 ml 50 ml IV Total 862 ml 1388 ml Tube Feeding 129 ml Output Urine Total 400 ml 800 ml # Bowel Movements 0 0 Exam CONSTITUTIONAL/GENERAL: This is an adequately nourished patient, in no apparent distress. On Precedex. TUBES/LINES/DRAINS: PIV's, SCDs, Armstrong catheter. SKIN: No jaundice, rashes, or lesions. Ecchymoses on upper extremities. No wounds seen anteriorly. Skin temperature appropriate. Not diaphoretic. HEAD: Atraumatic. Normocephalic. EYES: Pupils equal and round and reactive. No scleral icterus. No injection or drainage. ENT: Hearing appears normal. Nose without bleeding or purulent drainage. Mouth close. NECK: Trachea midline. Supple, nontender. CARDIOVASCULAR: Regular rate and rhythm without murmurs, gallops, or rubs. No JVD. Peripheral pulses symmetric. RESPIRATORY/CHEST: Symmetric, unlabored respirations. Clear but diminished to auscultation. Breath sounds equal bilaterally. GASTROINTESTINAL: Abdomen soft, non-tender, nondistended. No hepato-splenomegaly , or palpable masses appreciated. No guarding. Bowel sounds present. GENITOURINARY: Without palpable bladder distension. Armstrong catheter in place. MUSCULOSKELETAL: Extremities without clubbing, cyanosis, or edema. No mottling or clubbing. NEUROLOGICAL: Briefly opening eyes to verbal stimuli. Following some commands. PSYCHIATRIC: On Precedex. Appears calm. . Diagnostic Tests Laboratory Laboratory Tests Test 09/23/16 09/23/16 09/24/16 09/24/16 12:30 19:39 01:02 03:48 White Blood Count 10.0 TH/MM3 12.8 TH/MM3 (4.0-11.0) (4.0-11.0) Red Blood Count 4.25 MIL/MM3 4.46 MIL/MM3 (4.00-5.30) (4.00-5.30) Hemoglobin 12.7 GM/DL 13.0 GM/DL (11.6-15.3) (11.6-15.3) Hematocrit 37.0 % 39.3 % (35.0-46.0) (35.0-46.0) Mean Corpuscular Volume 87.1 FL 88.0 FL (80.0-100.0) (80.0-100.0) Mean Corpuscular Hemoglobin 29.9 PG 29.2 PG (27.0-34.0) (27.0-34.0) Mean Corpuscular Hemoglobin 34.4 % 33.2 % Concent (32.0-36.0) (32.0-36.0) Red Cell Distribution Width 13.7 % 14.0 % (11.6-17.2) (11.6-17.2) Platelet Count 225 TH/MM3 282 TH/MM3 (150-450) (150-450) Mean Platelet Volume 8.8 FL 8.9 FL (7.0-11.0) (7.0-11.0) Neutrophils (%) (Auto) 65.4 % 83.7 % (16.0-70.0) (16.0-70.0) Lymphocytes (%) (Auto) 20.3 % 11.3 % (9.0-44.0) (9.0-44.0) Monocytes (%) (Auto) 14.1 % 4.6 % (0.0-8.0) (0.0-8.0) Eosinophils (%) (Auto) 0.1 % (0.0-4.0) 0.0 % (0.0-4.0) Basophils (%) (Auto) 0.1 % (0.0-2.0) 0.4 % (0.0-2.0) Neutrophils # (Auto) 6.5 TH/MM3 10.7 TH/MM3 (1.8-7.7) (1.8-7.7) Lymphocytes # (Auto) 2.0 TH/MM3 1.4 TH/MM3 (1.0-4.8) (1.0-4.8) Monocytes # (Auto) 1.4 TH/MM3 0.6 TH/MM3 (0-0.9) (0-0.9) Eosinophils # (Auto) 0.0 TH/MM3 0.0 TH/MM3 (0-0.4) (0-0.4) Basophils # (Auto) 0.0 TH/MM3 0.0 TH/MM3 (0-0.2) (0-0.2) CBC Comment DIFF FINAL DIFF FINAL Differential Comment Prothrombin Time 12.0 SEC (9.8-11.6) Prothromb Time International 1.1 RATIO Ratio Sodium Level 129 MEQ/L 138 MEQ/L (136-145) (136-145) Potassium Level 3.2 MEQ/L 3.6 MEQ/L (3.5-5.1) (3.5-5.1) Chloride Level 96 MEQ/L 104 MEQ/L (98-107) (98-107) Carbon Dioxide Level 22.9 MEQ/L 20.5 MEQ/L (21.0-32.0) (21.0-32.0) Anion Gap 10 MEQ/L (5-15) 14 MEQ/L (5-15) Blood Urea Nitrogen 15 MG/DL (7-18) 12 MG/DL (7-18) Creatinine 0.53 MG/DL 0.67 MG/DL (0.50-1.00) (0.50-1.00) Estimat Glomerular Filtration 113 ML/MIN 87 ML/MIN (>89) Rate (>89) Random Glucose 110 MG/DL 130 MG/DL (74-106) (74-106) Calcium Level 7.9 MG/DL 8.6 MG/DL (8.5-10.1) (8.5-10.1) Phosphorus Level 1.9 MG/DL 3.3 MG/DL (2.5-4.9) (2.5-4.9) Magnesium Level 2.0 MG/DL 2.4 MG/DL (1.5-2.5) (1.5-2.5) Total Bilirubin 1.1 MG/DL 0.8 MG/DL (0.2-1.0) (0.2-1.0) Aspartate Amino Transf 20 U/L (15-37) 17 U/L (15-37) (AST/SGOT) Alanine Aminotransferase 36 U/L (10-53) 37 U/L (10-53) (ALT/SGPT) Alkaline Phosphatase 65 U/L (45-117) 73 U/L (45-117) Total Creatine Kinase 154 U/L 153 U/L 150 U/L (26-192) (26-192) (26-192) Creatine Kinase MB 7.9 NG/ML 8.2 NG/ML 8.2 NG/ML (0.5-3.6) (0.5-3.6) (0.5-3.6) Troponin I 0.54 NG/ML 0.45 NG/ML 0.39 NG/ML (0.02-0.05) (0.02-0.05) (0.02-0.05) Total Protein 6.5 GM/DL 7.1 GM/DL (6.4-8.2) (6.4-8.2) Albumin 3.3 GM/DL 3.6 GM/DL (3.4-5.0) (3.4-5.0) Hemoglobin A1c 5.3 % (4.3-6.0) Test 09/24/16 09/24/16 09/25/16 09/25/16 16:45 17:18 06:15 20:05 Urine Osmolality 475 MOSM/KG (300-1300) Blood Gas Puncture Site RT RADIAL Blood Gas Patient Temperature 98.6 Blood Gas HCO3 19 mmol/L (22-26) Blood Gas Base Excess -5.1 mmol/L (-2-2) Blood Gas Oxygen Saturation 96 % (90-100) Arterial Blood pH 7.40 (7.380-7.420) Arterial Blood Partial 32 mmHg (38-42) Pressure CO2 Arterial Blood Partial 118 mmHg Pressure O2 (61-120) Arterial Blood Oxygen Content 16.1 Vol % (12.0-20.0) Arterial Blood 1.2 % (0-4) Carboxyhemoglobin Arterial Blood Methemoglobin 1.5 % (0-2) Blood Gas Hemoglobin 11.8 G/DL (12.0-16.0) Oxygen Delivery Device VENTILATOR Blood Gas Ventilator Setting 500/14/5PEEP Blood Gas Inspired Oxygen 40 % White Blood Count 12.7 TH/MM3 10.2 TH/MM3 (4.0-11.0) (4.0-11.0) Red Blood Count 4.02 MIL/MM3 4.07 MIL/MM3 (4.00-5.30) (4.00-5.30) Hemoglobin 12.0 GM/DL 12.3 GM/DL (11.6-15.3) (11.6-15.3) Hematocrit 35.4 % 35.8 % (35.0-46.0) (35.0-46.0) Mean Corpuscular Volume 88.1 FL 88.1 FL (80.0-100.0) (80.0-100.0) Mean Corpuscular Hemoglobin 29.8 PG 30.2 PG (27.0-34.0) (27.0-34.0) Mean Corpuscular Hemoglobin 33.8 % 34.3 % Concent (32.0-36.0) (32.0-36.0) Red Cell Distribution Width 14.3 % 14.5 % (11.6-17.2) (11.6-17.2) Platelet Count 253 TH/MM3 216 TH/MM3 (150-450) (150-450) Mean Platelet Volume 9.3 FL 8.8 FL (7.0-11.0) (7.0-11.0) Neutrophils (%) (Auto) 81.3 % (16.0-70.0) Lymphocytes (%) (Auto) 8.7 % (9.0-44.0) Monocytes (%) (Auto) 9.9 % (0.0-8.0) Eosinophils (%) (Auto) 0.0 % (0.0-4.0) Basophils (%) (Auto) 0.1 % (0.0-2.0) Neutrophils # (Auto) 10.4 TH/MM3 (1.8-7.7) Lymphocytes # (Auto) 1.1 TH/MM3 (1.0-4.8) Monocytes # (Auto) 1.3 TH/MM3 (0-0.9) Eosinophils # (Auto) 0.0 TH/MM3 (0-0.4) Basophils # (Auto) 0.0 TH/MM3 (0-0.2) CBC Comment AUTO DIFF Differential Total Cells 100 Counted Neutrophils % (Manual) 86 % (16-70) Band Neutrophils % 1 % (0-6) Lymphocytes % 8 % (9-44) Monocytes % 5 % (0-8) Neutrophils # (Manual) 11.0 TH/MM3 (1.8-7.7) Differential Comment FINAL DIFF MANUAL Platelet Estimate NORMAL (NORMAL) Platelet Morphology Comment NORMAL (NORMAL) Red Cell Morphology Comment NORMAL (NORMAL) Sodium Level 143 MEQ/L (136-145) Potassium Level 3.7 MEQ/L (3.5-5.1) Chloride Level 111 MEQ/L (98-107) Carbon Dioxide Level 20.6 MEQ/L (21.0-32.0) Anion Gap 11 MEQ/L (5-15) Blood Urea Nitrogen 18 MG/DL (7-18) Creatinine 0.60 MG/DL (0.50-1.00) Estimat Glomerular Filtration 98 ML/MIN (>89) Rate Random Glucose 110 MG/DL (74-106) Calcium Level 8.3 MG/DL (8.5-10.1) Phosphorus Level 3.5 MG/DL (2.5-4.9) Magnesium Level 2.4 MG/DL (1.5-2.5) Test 09/25/16 09/26/16 09/26/16 09/26/16 20:08 00:48 05:50 10:07 Prothrombin Time 12.1 SEC (9.8-11.6) Prothromb Time International 1.1 RATIO Ratio Activated Partial 21.0 SEC 62.5 SEC 128.8 SEC 64.7 SEC Thromboplast Time (24.3-30.1) (24.3-30.1) (24.3-30.1) (24.3-30.1) White Blood Count 8.9 TH/MM3 (4.0-11.0) Red Blood Count 4.06 MIL/MM3 (4.00-5.30) Hemoglobin 12.2 GM/DL (11.6-15.3) Hematocrit 36.0 % (35.0-46.0) Mean Corpuscular Volume 88.7 FL (80.0-100.0) Mean Corpuscular Hemoglobin 30.1 PG (27.0-34.0) Mean Corpuscular Hemoglobin 34.0 % Concent (32.0-36.0) Red Cell Distribution Width 14.6 % (11.6-17.2) Platelet Count 212 TH/MM3 (150-450) Mean Platelet Volume 9.6 FL (7.0-11.0) Neutrophils (%) (Auto) 82.2 % (16.0-70.0) Lymphocytes (%) (Auto) 11.5 % (9.0-44.0) Monocytes (%) (Auto) 6.0 % (0.0-8.0) Eosinophils (%) (Auto) 0.0 % (0.0-4.0) Basophils (%) (Auto) 0.3 % (0.0-2.0) Neutrophils # (Auto) 7.3 TH/MM3 (1.8-7.7) Lymphocytes # (Auto) 1.0 TH/MM3 (1.0-4.8) Monocytes # (Auto) 0.5 TH/MM3 (0-0.9) Eosinophils # (Auto) 0.0 TH/MM3 (0-0.4) Basophils # (Auto) 0.0 TH/MM3 (0-0.2) CBC Comment DIFF FINAL Differential Comment Sodium Level 142 MEQ/L (136-145) Potassium Level 3.7 MEQ/L (3.5-5.1) Chloride Level 110 MEQ/L (98-107) Carbon Dioxide Level 20.7 MEQ/L (21.0-32.0) Anion Gap 11 MEQ/L (5-15) Blood Urea Nitrogen 24 MG/DL (7-18) Creatinine 0.66 MG/DL (0.50-1.00) Estimat Glomerular Filtration 88 ML/MIN (>89) Rate Random Glucose 140 MG/DL (74-106) Calcium Level 8.4 MG/DL (8.5-10.1) Magnesium Level 2.6 MG/DL (1.5-2.5) Total Bilirubin 0.4 MG/DL (0.2-1.0) Aspartate Amino Transf 16 U/L (15-37) (AST/SGOT) Alanine Aminotransferase 30 U/L (10-53) (ALT/SGPT) Alkaline Phosphatase 70 U/L (45-117) Total Protein 6.2 GM/DL (6.4-8.2) Albumin 3.2 GM/DL (3.4-5.0) Result Diagram: 09/26/16 0550 09/26/16 0550 Microbiology Microbiology Date/Time Procedure Status Source Growth 09/22/16 16:19 Urine Culture - Final Complete Urine Clean Catch 10-50,000 CFU/ML MIXED GRAM POSITIVE ... Imaging Last Impressions Head CT 09/26/16 06 Signed Impressions: Service Date/Time: Monday, September 26, 2016 08:07 - CONCLUSION: No significant change Bon Iyer MD Chest X-Ray 09/26/16 06 Signed Impressions: Service Date/Time: Monday, September 26, 2016 03:22 - CONCLUSION: No acute disease. Bon Garcia MD Chest CT 09/25/16 Signed Impressions: Service Date/Time: Sunday, September 25, 2016 16:38 - CONCLUSION: 1. Positive for pulmonary embolic disease. 2. No evidence for metastatic disease to the thorax. Eleuterio Pyle MD Abdomen/Pelvis CT 09/25/16 Signed Impressions: Service Date/Time: Sunday, September 25, 2016 16:38 - CONCLUSION: 1. Positive for pulmonary embolus right lower lobe. 2. No evidence for metastatic disease within the abdomen and pelvis. Eleuterio Pyle MD Neck Magnetic Resonance Angiography 09/24/16 Signed Impressions: Service Date/Time: Saturday, September 24, 2016 14:31 - CONCLUSION: Normal examination for a patient of this age. Eleuterio Pyle MD Lower Extremity Ultrasound 09/23/16 Signed Impressions: Service Date/Time: Friday, September 23, 2016 11:17 - CONCLUSION: Negative exam with no evidence of deep venous thrombosis. Alo Barton MD Head Magnetic Resonance Angiography 09/23/16 Signed Impressions: Service Date/Time: Friday, September 23, 2016 09:52 - CONCLUSION: Significant intracranial atherosclerotic disease, otherwise negative. Ciaran Davis MD FACR Brain MRI 09/23/16 Signed Impressions: Service Date/Time: Friday, September 23, 2016 09:52 - CONCLUSION: Abnormality in the right parietal occipital region that does show some blood clots and vasogenic edema. This probably represents an ischemic event; however, the amount of vasogenic edema is concerning. MRI with contrast would be of benefit when the patient is clinically stable. Ciaran Davis MD FACR Procedures * 09/25/16 -Self extubation * 09/24/16 -intubation . Patient/Family Conference Present at Family Conference: Patient's daughter Judith and Judith's . Family Conference Time (mins): 42 Family Conference Location: Bedside Issues Discussed: * Palliative care role, purpose, approach * Additional medical, psychosocial, and spiritual history * Patients general health, functional status, and cognitive changes in the months leading up to the current hospitalization * Family's understanding of the current medical problems * Family's understanding of prognosis * Current medical treatment options and benefits/burdens of those options * Likely scenarios comparing ongoing aggressive care with a transition to comfort measures only * Questions answered to the best of my ability * Palliative care contact information provided . Assessment and Plan Disease Oriented Problem List: (1) Brain mass (2) Acute respiratory failure (3) Atrial fibrillation (4) Pulmonary embolism Symptom Scale: (1) Anxiety 0-10 Scale: Unable to quantify Comment: on Precedex. Pertinent Non-Medical Issues Psychosocial: . Retired. has 3 children. Spiritual: [employer]. Legal: AD completed. Pending copy from family. Ethical issues impacting care: Pending designation of health-care surrogate naming [id number] Judith as HCS. . Important Contacts Daughter Crystal Romo . . Prognosis Mrs. Bay is a 71-year-old female with a past history of atrial fibrillation not on anticoagulation and questionable schizophrenia. 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 Patient is a high risk of further decline, complications and . . Code Status: Full Code Plan * CODE STATUS: Full code * MEDICAL DECISION-MAKING: Patient sedated, on Precedex. Unclear if she will regain medical decision-making capacity. Judith Romo presented herself as patient's daughter, later reported that she is patient's former [id number] who has been taking care of pt for the past 20 years. Judith reports that advanced directives/healthcare surrogate designation has been completed by patient naming her as OLGA. Judith to provide copy of documentation. She will bring to hospital. * GOALS OF CARE: Family wishing to continue full CODE STATUS while awaiting to discuss treatment plan with hematology, bridge leverman and neurosurgery. Daughter verbalized that patient's quality of life is very important and that if any treatment options does not offer improved quality of life or the risks outweigh any benefits, family would transition patient to comfort directed care. For now , goals are aggressive. * SYMPTOMS: == anxiety/agitation. Remains on Precedex drip. management deferred to bridge leverman. * Case discussed with bedside RN and Dr. Johnson. * Palliative care contact information has been provided to family. * Palliative care will continue to follow-up for further clarifications of goals of care, assist with communication, symptom management and provide emotional support. . Time Spent Total Floor Time (mins): 82 (Total time to include review and summarization of available medical records, physical exam, goals of care discussion with pt's daughter and case discussion with Dr. Johnson and bedside RN. ) >50% Counseling/Coord of Care: Yes Thank you for the opportunity to participate in the care of Ms. Bay. Attestation To help prompt me to consider important information that might be impacting today's encounter and assessment, information from prior notes written by myself or my colleagues may have been "brought forward" into today's note. My signature on this note, however, is an attestation that I personally performed the exam, history, and/or decision-making noted today, and, unless otherwise indicated, the interactions with patient, family, and staff as well as the review of records all occurred today. I also attest that the listed assessment and stated plan reflect my best clinical judgment today based on the combination of historical information, prior notes, and today's exam/ interactions. When time spent is documented, it refers only to time spent today by the signer, or if indicated, combined time spent today by collaborating physician/nurse practitioner. Debbie Hooks Sep 26, 2016 11:32
[2016-09-26] MEDS: HEPARIN-D5W INJ 250 ML IV SCH (13:14)
--- NOTE | 2016-09-26 13:38 | HHI.NSPN ---
(Joanne Mariano) Note Status Status: Progress Note (Joanne Mariano) Interval History Interval History Ms. Bay is a 71 year old female who presented to [facility] with acute delirium. She had reported peopler were coming to her house, she was having panic attacks. She was brought to [place] by her family member. A CT Brain showed a small focal hemorrhage in right temporal lobe with large amount of vasogenic edema. No known history of brain masses or tumors. She also reports of recently having headaches, as well as some weakness on the left side. 09/24/16: Came to evaluate pt but off the floor for MRI for prolonged period of time. Called MRI and pt pulled out IV and is agitated and tech states she may need to be sedated and intubated for MRI as she is not going to hold still and lost IV access for contrast MRI. 09/25/16: Pt sedated on Diprivan and Fentanyl drips. Intubated. Opens eyes when stimulated. Follows simple commands. 09/26/16: MRI Brain w/contrast shows underlying mass. She also now with DVT/PE on heparin drip. Currently on soft restraints. Oriented, and follows simple commands. No family at bedside. (Joanne Mariano) Labs, Micro, & Vital Signs Results Date Time Temp Pulse Resp B/P Pulse Ox O2 Delivery O2 Flow Rate FiO2 09/26/16 08:00 78 09/26/16 08:00 97.5 78 21 116/97 93 09/26/16 06:00 58 09/26/16 04:00 98.0 89 28 146/68 94 09/26/16 04:00 89 09/26/16 02:00 53 09/26/16 00:00 55 09/26/16 00:00 97.6 55 20 132/75 96 09/25/16 22:00 90 09/25/16 21:09 95 21 09/25/16 20:00 53 09/25/16 20:00 97.4 53 27 124/73 93 09/25/16 18:00 58 09/25/16 16:00 98.3 57 17 105/61 22 09/25/16 16:00 57 09/25/16 14:00 111 09/26/16 07:00 Intake Total 2669 ml Output Total 1200 ml Balance 1469 ml Constitutional Vital Signs Date Time Temp Pulse Resp B/P Pulse Ox O2 Delivery O2 Flow Rate FiO2 09/26/16 08:00 78 09/26/16 08:00 97.5 78 21 116/97 93 09/26/16 06:00 58 09/26/16 04:00 98.0 89 28 146/68 94 09/26/16 04:00 89 09/26/16 02:00 53 09/26/16 00:00 55 09/26/16 00:00 97.6 55 20 132/75 96 09/25/16 22:00 90 09/25/16 21:09 95 21 09/25/16 20:00 53 09/25/16 20:00 97.4 53 27 124/73 93 09/25/16 18:00 58 09/25/16 16:00 98.3 57 17 105/61 22 09/25/16 16:00 57 09/25/16 14:00 111 09/26/16 07:00 Intake Total 2669 ml Output Total 1200 ml Balance 1469 ml (Joanne Mariano) Review of Systems/Exam Exam Awake and oriented to name, place, and year. Follows simple commands. CN: Pupils 4 mm equal, EOMs grossly intact. Facial appear grossly symmetric at rest Neck: soft, supple Motor: moves all four extremities grossly symmetrically Heart: NSR no murmurs Abdomen: Soft Plantars downgoing b/l Cerebellar: cannot assess due to clinical condition (Joanne Mariano) Medications Current Medications Current Medications Medications (Trade) Dose Ordered Sig/Hardeep Route PRN Reason Start Time Stop Time Status Last Admin Dose Admin Dextrose (D50w (Vial) Inj) 25 ml UNSCH PRN IV PUSH HYPOGLYCEMIA-SEE COMMENTS 09/23/16 03:00 Glucagon (Glucagon Inj) 1 mg UNSCH PRN OTHER HYPOGLYCEMIA-SEE COMMENTS 09/23/16 03:00 Insulin Aspart 1 1 Q4H SQ 09/23/16 03:00 Potassium Chloride 100 ml @ 50 mls/hr Q2H PRN IV For Potassium 2.8 - 3.2 mEq/L 09/23/16 03:00 Potassium Chloride (KCl 20 Meq Premix Inj) 100 ml @ 50 mls/hr Q2H PRN IV For Potassium 2.8 - 3.2 mEq/L 09/23/16 03:00 Potassium Chloride 40 meq 40 meq UNSCH PRN PO/TUBE For Potassium 3.3 - 3.5 mEq/L 09/23/16 03:00 Potassium Chloride 100 ml @ 25 mls/hr UNSCH PRN IV For Potassium 3.3 - 3.5 mEq/L 09/23/16 03:00 Potassium Chloride 100 ml @ 50 mls/hr Q2H PRN IV For Potassium 3.3 - 3.5 mEq/L 09/23/16 03:00 09/23/16 04:26 Magnesium Sulfate/ Sodium Chloride (Magnesium Sulfate Inj/NS Inj) 100 ml @ 50 mls/hr UNSCH PRN IV For Magnesium 0.9 - 1.1 mg/dL 09/23/16 03:00 Magnesium Oxide 800 mg 800 mg UNSCH PRN PO For Magnesium 1.2 - 1.6 mg/dL 09/23/16 03:00 Magnesium Sulfate/ Sodium Chloride (Magnesium Sulfate Inj/NS Inj) 100 ml @ 50 mls/hr UNSCH PRN IV For Magnesium 1.2 - 1.6 mg/dL 09/23/16 03:00 Potassium Phosphate 2000 mg 2,000 mg Q4H PRN PO For Phosphorus < 2.5 mg/dL 09/23/16 03:00 Sodium Phosphate/ Sodium Chloride (Sodium Phosphate Inj/NS 250 ml Inj) 250 ml @ 42 mls/hr UNSCH PRN IV For Phosphorus < 2.5 mg/dL 09/23/16 03:00 Potassium Chloride (KCl 40 Meq/30 ml Liq) 40 meq UNSCH PRN PO/TUBE SEE LABEL COMMENTS 09/23/16 03:00 Potassium Phosphate 2000 mg 2,000 mg UNSCH PRN PO/TUBE SEE LABEL COMMENTS 09/23/16 03:00 Potassium Phosphate 30 mmol/ Sodium Chloride 260 ml @ 42 mls/hr UNSCH PRN IV SEE LABEL COMMENTS 09/23/16 03:00 09/23/16 16:38 Ceftriaxone Sodium/Sodium Chloride (Rocephin Inj/NS Inj) 100 ml @ 200 mls/hr Q24H IV 09/23/16 22:00 09/25/16 22:09 Hydralazine HCl (Apresoline Inj) 10 mg Q4H PRN IV PUSH SBP >160 09/23/16 03:30 Labetalol HCl (Trandate Inj) 10 mg Q4H PRN IV PUSH SBP >160 09/23/16 03:30 Lorazepam (Ativan Inj) 0.5 mg Q4H PRN IV PUSH ANXIETY 09/23/16 03:30 09/26/16 08:56 IV Flush (NS Flush) 2 ml UNSCH PRN IV FLUSH FLUSH AFTER USING IV ACCESS 09/23/16 03:30 IV Flush (NS Flush) 2 ml BID IV FLUSH 09/23/16 09:00 09/26/16 09:02 Pantoprazole Sodium (Protonix Inj) 40 mg DAILY IV 09/23/16 09:00 09/26/16 09:02 Ondansetron HCl (Zofran Inj) 4 mg Q6H PRN IV NAUSEA OR VOMITING 09/23/16 03:30 Miscellaneous Information 1 Q361D XX 09/23/16 03:30 09/23/16 03:30 Chlorhexidine Gluconate (Chlorhexidine 2% Cloth) 3 pack Taper DAILY@04 TOP 09/23/16 04:00 09/19/17 03:59 09/26/16 03:31 Chlorhexidine Gluconate (Chlorhexidine 2% Cloth) 3 pack UNSCH PRN TOP HYGIENIC CARE 09/23/16 03:30 Dexamethasone Sodium Phosphate 10 mg 10 mg Q6HR IV PUSH 09/23/16 13:15 09/26/16 13:13 Levetriacetam/ Sodium Chloride (Keppra Inj/NS Inj) 105 ml @ 420 mls/hr Q12HR IV 09/23/16 21:00 09/26/16 09:02 Haloperidol Lactate (Haldol Inj) 2 mg Q6H PRN IV PUSH AGITATION AND/OR HALLUCINATION 09/24/16 01:00 09/24/16 05:36 Carvedilol 3.125 mg 3.125 mg Q12HR PO 09/24/16 09:00 09/25/16 09:40 Sodium Chloride (NS 1000 ml Inj) 1,000 ml @ 75 mls/hr Q12B27F IV 09/24/16 15:15 09/26/16 05:05 Mannitol 25 gm 25 gm Q6H IV 09/24/16 17:00 09/26/16 11:20 Dexmedetomidine HCl 50 ml @ 0 mls/hr TITRATE IV 09/25/16 13:30 09/26/16 09:10 Heparin Sodium/ Dextrose (Heparin-D5W Inj) 250 ml @ 0 mls/hr TITRATE IV 09/25/16 18:15 09/26/16 13:14 (Joanne Mariano) Medical Decision Making MDM Remarks 71 y/o female brought by her family due to delirium and anxiety MRI Brain shows right temporal lobe mass Pulmonary Emboli (Joanne Mariano) Plan Plan Remarks reviewed MRI Brain for delia filter needle biopsy vs surgical resection this monday Dr. Ibrahim to call and dw family plan of care (Joanne Mariano) Attending Statement The exam, history, and the medical decision-making described in the above note were completed with the assistance of the mid-level provider. I reviewed and agree with the findings presented. I attest that I had a [id number] encounter with the patient on the same day, and personally performed and documented my assessment and findings in the medical record. (Dinh Ibrahim MD) Joanne Mariano Sep 26, 2016 13:38 Dinh Ibrahim MD Oct 01, 2016 17:58
[2016-09-26 17:14] LABS: APTT (PATIENT) 78.8 SEC (24.3-30.1)
[2016-09-26] MEDS: cefTRIAXone INJ 1,000 MG in SODIUM CHLORIDE 0.9% INJ 100 ML IV SCH (21:11)
[2016-09-27] VITALS (11 sets, daily range): BP systolic 144–165; BP diastolic 73–90; PULSE 52–93; RESP 14–26; TEMP 97.4–99.4; O2SAT 97–100
[2016-09-27] MEDS: MANNITOL 12.5 GM/50 ML VIAL IV SCH ×5 (00:37→21:47)
[2016-09-27] MEDS: DEXAMETHASONE SOD PHOS 4 MG/ML VIAL IV PUSH SCH ×5 (00:38→23:05)
[2016-09-27 01:15] LABS: APTT (PATIENT) 95.9 SEC (24.3-30.1)
[2016-09-27] MEDS: RESP: ALBUTEROL 2.5 MG/IPRATROPIUM 0.5 MG NEB (SCH) NEB ×4 (02:50→20:04)
[2016-09-27] MEDS: INSULIN ASPART SUPPLEMENTAL SCALE SQ SCH ×6 (03:00→21:53)
[2016-09-27] MEDS: DEXMEDETOMIDINE INJ 50 ML IV SCH (03:02)
[2016-09-27] MEDS: CHLORHEXIDINE GLUCONATE 2 % 1 PACK (2 CLOTHS) TOP SCH (04:00)
[2016-09-27 04:33] LABS: AUTOMATED NEUTROPHIL # 7.8 TH/MM3 (1.8-7.7); BASOPHIL % 0.3 % (0.0-2.0); HEMATOCRIT 36.1 % (35.0-46.0); HEMO FLAGS DIFF FINAL; LYMPH % 10.4 % (9.0-44.0); MEAN CELL VOLUME 88.6 FL (80.0-100.0); MEAN CORPUSCULAR HEMOGLOBIN 29.8 PG (27.0-34.0); MEAN CORPUSCULAR HGB CONC 33.6 % (32.0-36.0); MONO % 9.1 % (0.0-8.0); NEUT % 80.2 % (16.0-70.0); PLATELET COUNT 234 TH/MM3 (150-450); RED BLOOD COUNT 4.07 MIL/MM3 (4.00-5.30); RED CELL DISTRIBUTION WIDTH 14.6 % (11.6-17.2); WHITE BLOOD COUNT 9.7 TH/MM3 (4.0-11.0)
[2016-09-27 04:38] LABS: APTT (PATIENT) 51.6 SEC (24.3-30.1)
[2016-09-27 04:53] LABS: ALT (GPT) 34 U/L (10-53); ANION GAP 10 MEQ/L (5-15); AST (GOT) 19 U/L (15-37); BICARBONATE 19.6 MEQ/L (21.0-32.0); BLOOD UREA NITROGEN 24 MG/DL (7-18); CHLORIDE 114 MEQ/L (98-107); GLOMERULAR FILTRATION RATE 82 ML/MIN (>89); POTASSIUM 3.6 MEQ/L (3.5-5.1); SODIUM (NA) 144 MEQ/L (136-145)
[2016-09-27 04:55] LABS: ALKALINE PHOSPHATASE 66 U/L (45-117); TOTAL BILIRUBIN ADULT 0.6 MG/DL (0.2-1.0)
[2016-09-27 06:37] LABS: APTT (PATIENT) 53.2 SEC (24.3-30.1)
--- NOTE | 2016-09-27 07:31 | HHI.CCPN ---
Subjective Remarks/Hospital Course 71-year-old female who reportedly was diagnosed with schizophrenia but who does not take any medications chronically presented to [facility] with one week history of paranoia and hallucinations. She said she believed people were coming into her house uninvited. She drove to her ex-daughter in-laws house and this woman's new was there and tried to redirect her as she reportedly has a h/o intermittent paranoid delusions. He took her back to her home yesterday but she was having intermittent episodes of panic so she was brought in for psychiatry evaluation. While doing psychiatric clearance, ED CONSTRUCTION RECRUITER and physician discovered that she had elevated troponin of 1.4 with normal CKMB fraction. Creatinine is normal at 0.63. Case was discussed with cardiology who recommended medical management including heparin. Before initiation of heparin, CT brain was obtained. This demonstrated small focal hemorrhage in right temporal lobe with large amount of vasogenic edema (without shift). Patient states she has had a bifrontal headache for about a week. No n/v/ seizures. She does state that she falls frequently (2-3 times in last 2 months) but denies head trauma. She states she has noticed some left leg weakness for about a week and she states she fell in [facility] about a week ago due to leg weakness. She has noticed some decreased sensation on the left leg as well. She denies any changes in vision or speech. She does have dysarthric speech, but she states this is chronic. She states she has been having intermittent "panic attacks" with episodes of SOB and discomfort in her chest. She states this improves when her family tries to calm her down. She denies exertional CP/ SOB or hemoptysis. She has noticed BLE pedal edema ~ 1 week. She denies prior h/ o stroke. States she saw Dr. Antonio with neurology in the past. She has atrial fibrillation but denies having been on anticoagulation 09/24 Patient was given Ativan/Haldol overnight for agitation and confusion. MRI brain wo contrast yesterday showed abnormality in the right parietal occipital region that does show some blood clots and vasogenic edema. For MRI brain with contrast and EEG today. 09/25: While sedation was held patient self extubated. Patient more awake today following commands. 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 Mar, radiologist) 09/26 No acute events overnight. On Precedex drip for agitation and heparin drip for PE. Afebrile. 09/27 Patient is more awake and alert on Precedex and heparin drips. Afebrile Objective Vital Signs Date Time Temp Pulse Resp B/P Pulse Ox O2 Delivery O2 Flow Rate FiO2 09/27/16 06:00 60 09/27/16 04:00 98.3 20 159/90 98 09/25/16 21:09 21 09/25/16 09:04 Nasal Cannula 4 Intake and Output 09/26/16 09/26/16 09/27/16 08:00 16:00 00:00 Intake Total 728 ml 1082 ml Output Total 400 ml 525 ml Balance 328 ml 557 ml Result Diagram: 09/27/16 0325 09/27/16 0325 Other Results Laboratory Tests Test 09/26/16 09/26/16 09/27/16 09/27/16 10:07 16:30 00:52 03:25 Activated Partial 64.7 SEC 78.8 SEC 95.9 SEC 51.6 SEC Thromboplast Time White Blood Count 9.7 TH/MM3 Red Blood Count 4.07 MIL/MM3 Hemoglobin 12.1 GM/DL Hematocrit 36.1 % Mean Corpuscular Volume 88.6 FL Mean Corpuscular Hemoglobin 29.8 PG Mean Corpuscular Hemoglobin 33.6 % Concent Red Cell Distribution Width 14.6 % Platelet Count 234 TH/MM3 Mean Platelet Volume 9.5 FL Neutrophils (%) (Auto) 80.2 % Lymphocytes (%) (Auto) 10.4 % Monocytes (%) (Auto) 9.1 % Eosinophils (%) (Auto) 0.0 % Basophils (%) (Auto) 0.3 % Neutrophils # (Auto) 7.8 TH/MM3 Lymphocytes # (Auto) 1.0 TH/MM3 Monocytes # (Auto) 0.9 TH/MM3 Eosinophils # (Auto) 0.0 TH/MM3 Basophils # (Auto) 0.0 TH/MM3 CBC Comment DIFF FINAL Differential Comment Sodium Level 144 MEQ/L Potassium Level 3.6 MEQ/L Chloride Level 114 MEQ/L Carbon Dioxide Level 19.6 MEQ/L Anion Gap 10 MEQ/L Blood Urea Nitrogen 24 MG/DL Creatinine 0.70 MG/DL Estimat Glomerular Filtration 82 ML/MIN Rate Random Glucose 130 MG/DL Calcium Level 8.5 MG/DL Total Bilirubin 0.6 MG/DL Aspartate Amino Transf 19 U/L (AST/SGOT) Alanine Aminotransferase 34 U/L (ALT/SGPT) Alkaline Phosphatase 66 U/L Total Protein 6.2 GM/DL Albumin 3.3 GM/DL Test 09/27/16 06:15 Activated Partial 53.2 SEC Thromboplast Time Imaging Last Impressions Head CT 09/26/16599 Signed Impressions: Service Date/Time: Monday, September 26, 2016 08:07 - CONCLUSION: No significant change Bon Iyer MD Chest X-Ray 09/26/16599 Signed Impressions: Service Date/Time: Monday, September 26, 2016 03:22 - CONCLUSION: No acute disease. Bon Garcia MD Chest CT 09/25/16 0000 Signed Impressions: Service Date/Time: Sunday, September 25, 2016 16:38 - CONCLUSION: 1. Positive for pulmonary embolic disease. 2. No evidence for metastatic disease to the thorax. Eleuterio Pyle MD Abdomen/Pelvis CT 09/25/16 0000 Signed Impressions: Service Date/Time: Sunday, September 25, 2016 16:38 - CONCLUSION: 1. Positive for pulmonary embolus right lower lobe. 2. No evidence for metastatic disease within the abdomen and pelvis. Eleuterio Pyle MD Neck Magnetic Resonance Angiography 09/24/16 0000 Signed Impressions: Service Date/Time: Saturday, September 24, 2016 14:31 - CONCLUSION: Normal examination for a patient of this age. Eleuterio Pyle MD Lower Extremity Ultrasound 09/23/16 0000 Signed Impressions: Service Date/Time: Friday, September 23, 2016 11:17 - CONCLUSION: Negative exam with no evidence of deep venous thrombosis. Alo Barton MD Head Magnetic Resonance Angiography 09/23/16 0000 Signed Impressions: Service Date/Time: Friday, September 23, 2016 09:52 - CONCLUSION: Significant intracranial atherosclerotic disease, otherwise negative. Ciaran Davis MD FACR Brain MRI 09/23/16 0000 Signed Impressions: Service Date/Time: Friday, September 23, 2016 09:52 - CONCLUSION: Abnormality in the right parietal occipital region that does show some blood clots and vasogenic edema. This probably represents an ischemic event; however, the amount of vasogenic edema is concerning. MRI with contrast would be of benefit when the patient is clinically stable. Ciaran Davis MD FACR Objective Remarks GENERAL: Patient is 71 yo with who is self extubated. Somnolent but follows some commands SKIN: Warm and dry. HEAD: Normocephalic. EYES: No scleral icterus. No injection or drainage. NECK: Supple, trachea midline. No JVD or lymphadenopathy. CARDIOVASCULAR: Regular rate and rhythm without murmurs, gallops, or rubs. RESPIRATORY: Breath sounds equal bilaterally. No accessory muscle use. GASTROINTESTINAL: Abdomen soft, non-tender, nondistended. MUSCULOSKELETAL: No cyanosis, or edema. Neuro: Patient is somnolent but follows commands on all 4 extremities. Weaker on left side with 4 out of 5 power. A/P Assessment and Plan NEURO: Acute R temporal lobe hemorrhage with edema. Right occipitotemporal mass 5x 3 cm on MRI Schizophrenia Anxiety Wean off Precedex drip and monitor neuro status MRI with contrast 09/24/16 shows Right occipitotemporal mass 5x 3 cm on MRI ? Glioma Continue Decadron 10 mg IV every 6 hours, Keppra for seizure prophylaxis Maintain SBP <160. d/c Mannitol NSG_ Dr. Gomez for possible resection bs biopsy on Monday Neurology Dr. Chung following RESP: Acute respiratory failure PE RLL Tobacco abuse Self extubated 09/25/16 about 0900 am Oxygen PRN keep sat >92% Continue DuoNeb every 6 hours scheduled and when necessary On Heparin drip for PE CV: Atrial fibrillation Elevated troponin -?neurogenic She received aspirin 324 in the ED. Monitor HR and BP keep MAP>65mmHg Echo 09/23 showed EF 30-35% with wall motion abnormalities..takotsubo syndrome vs CAD. Cards- Dr. Park GI: Speech therapy to evaluate swallow. Protonix for GI prophylaxis FEN/RENAL: Monitor renal function, I/O's, electrolytes replacement per protocol. On NS@75ml/hr ID: Possible UTI Urinalysis shows 12 WBCs and trace leukocyte esterase. Continue Rocephin 1 g IV every 24 hours HEME: Monitor CBC. Coags are normal, on Heparin drip. Heme consulted Discussed with Dr. Ibrahim will proceed with IVC filter placement and d/c heparin once IVC filter is placed. ENDO: Random cortisol appropriate, hemoglobin A1c 5.3 TSH is normal. SSI if needed for glycemic control PROPH: SCDs and teds for DVT prophylaxis. On Heparin drip for PE Protonix 40 mg IV daily for stress ulcer prophylaxis. ACCESS: Peripheral IV providing adequate access at this time. Palliative care on case Level 3 Lyudmila Johnson MD Sep 27, 2016 07:31
[2016-09-27] MEDS: CARVEDILOL 3.125 MG TAB PO SCH ×2 (09:00→21:49)
--- NOTE | 2016-09-27 09:07 | MB ---
cc: RADHA TIM M.D. DATE OF CONSULTATION 09/26/2016 REASON FOR CONSULTATION Consult question by Dr. Johnson for evaluation of IVC filter in a patient who has pulmonary embolism. HISTORY OF PRESENT ILLNESS Pauline is a 71-year-old female. She is currently sedated, unable to give any history. History is obtained through the review of the records. The patient has a history of anxiety depression. She was brought into the emergency room with change in mental status. She had a CT of the brain which showed a small focal hemorrhage involving the right temporal lobe with prominent with vasogenic edema. Underlying neoplasm is not excluded. Neurology and neurosurgery were consulted. The patient had an MRI of the brain which showed right parietal occipital mass suspicious for glioma. Plan is to do a biopsy of the mass by the neurosurgeon. She had a CT of the chest which showed pulmonary embolism. The CT of the abdomen and pelvis shows poor embolism of the right lower lobe, but no evidence of metastatic disease. The patient is on heparin. Dr. Johnson has requested for IVC filter but he is requesting hematology consult for appropriateness of the filter. The patient is unable to give any history. REVIEW OF SYSTEMS The review of systems is not possible. PAST MEDICAL HISTORY 1. Anxiety depression 2. Atrial fibrillation PAST SURGICAL HISTORY 1. Hysterectomy 2. Facelift ALLERGIES CODEINE MEDICATIONS See EMR. FAMILY HISTORY Unable to obtain. SOCIAL HISTORY Unable to obtain. PHYSICAL EXAM This is a well-developed, well-nourished white female who is sedated. VITAL SIGNS: Temperature 98.4, heart rate is 70, blood pressure 138/71, O2 saturation 99%. HEENT: PERRLA, EOMI. NECK: No lymphadenopathy noted. LUNGS: Clear. No wheezing, rhonchi or rales. HEART: Irregularly irregular. ABDOMEN: Soft with positive bowel sounds. EXTREMITIES: No pedal edema. All four extremities are restrained. NEUROLOGIC: The patient is sedated. ASSESSMENT 1. Unprovoked pulmonary embolism currently on heparin with no evidence of DVT of the lower leg. 2. 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 PLAN I have reviewed her available records. The patient is on heparin for pulmonary embolism. The Doppler ultrasound of both lower legs does not show any DVTs. She has a hemorrhagic brain mass. Anticoagulation is relatively contraindicated. I agree to have an IVC filter placed and even though she does not have any DVT in the lower legs, but by putting a filter, we can stop the heparin. The patient is scheduled to have surgery by neurosurgeon for the brain mass. Palliative care was consulted today regarding the goal. At this time, family has decided full code. They want everything done. According to the records, the patient, prior to coming to the hospital was ambulatory and was doing ADLs. Further recommendations based on the hospital stay. Thank you for asking my opinion. Daphnie Tim MD /SUSIE /8:24 PM /8:53 AM
[2016-09-27] MEDS: PANTOPRAZOLE SODIUM 40 MG VIAL IV SCH (09:25)
[2016-09-27] MEDS: SODIUM CHLORIDE 0.9% FLUSH 5 ML FLUSH IV FLUSH SCH ×2 (09:26→21:52)
[2016-09-27] MEDS: levETIRAcetam INJ 500 MG in SODIUM CHLORIDE 0.9% INJ 100 ML IV SCH ×2 (09:26→21:48)
[2016-09-27] MEDS ORDERED: VANCOMYCIN INJ 1,000 MG in SODIUM CHLOR 0.9% 250 ML INJ 250 ML IV SCH (09:45)
[2016-09-27] MEDS ORDERED: ceFAZolin 2 GM PREMIX 50 ML IV SCH (09:45)
[2016-09-27] MEDS: SODIUM CHLOR 0.9% 1000 ML INJ 1,000 ML IV SCH ×2 (09:55→23:05)
--- NOTE | 2016-09-27 11:16 | PD.ONC.PN ---
Subjective Subjective Remarks Afebrile overnight. Patient with healthcare surrogate, Crystal at bedside. She complains of some soreness in the right hip, but is otherwise without complaint. Crystal tells me they are on board with plan to put IVC filter in. Objective Data Date Time Temp Pulse Resp B/P Pulse Ox O2 Delivery O2 Flow Rate FiO2 09/27/16 08:00 97.4 52 14 145/84 97 09/27/16 06:00 60 09/27/16 04:00 72 09/27/16 04:00 98.3 72 20 159/90 98 09/27/16 02:00 69 09/27/16 00:00 75 09/27/16 00:00 98.1 75 22 149/73 100 09/26/16 22:00 82 09/26/16 20:00 98.3 56 19 128/74 97 09/26/16 20:00 56 09/26/16 18:00 70 09/26/16 16:00 69 09/26/16 16:00 98.4 69 18 138/71 99 09/26/16 14:00 74 09/26/16 12:00 59 09/26/16 12:00 98.4 59 18 141/81 97 09/27/16 09/27/16 09/27/16 07:00 15:00 23:00 Intake Total 135 ml Output Total 400 ml Balance -265 ml Result Diagram: 09/27/16 0325 09/27/16 0325 Laboratory Results Laboratory Tests Test 09/26/16 09/27/16 09/27/16 09/27/16 16:30 00:52 03:25 06:15 Activated Partial 78.8 SEC 95.9 SEC 51.6 SEC 53.2 SEC Thromboplast Time White Blood Count 9.7 TH/MM3 Red Blood Count 4.07 MIL/MM3 Hemoglobin 12.1 GM/DL Hematocrit 36.1 % Mean Corpuscular Volume 88.6 FL Mean Corpuscular Hemoglobin 29.8 PG Mean Corpuscular Hemoglobin 33.6 % Concent Red Cell Distribution Width 14.6 % Platelet Count 234 TH/MM3 Mean Platelet Volume 9.5 FL Neutrophils (%) (Auto) 80.2 % Lymphocytes (%) (Auto) 10.4 % Monocytes (%) (Auto) 9.1 % Eosinophils (%) (Auto) 0.0 % Basophils (%) (Auto) 0.3 % Neutrophils # (Auto) 7.8 TH/MM3 Lymphocytes # (Auto) 1.0 TH/MM3 Monocytes # (Auto) 0.9 TH/MM3 Eosinophils # (Auto) 0.0 TH/MM3 Basophils # (Auto) 0.0 TH/MM3 CBC Comment DIFF FINAL Differential Comment Sodium Level 144 MEQ/L Potassium Level 3.6 MEQ/L Chloride Level 114 MEQ/L Carbon Dioxide Level 19.6 MEQ/L Anion Gap 10 MEQ/L Blood Urea Nitrogen 24 MG/DL Creatinine 0.70 MG/DL Estimat Glomerular Filtration 82 ML/MIN Rate Random Glucose 130 MG/DL Calcium Level 8.5 MG/DL Total Bilirubin 0.6 MG/DL Aspartate Amino Transf 19 U/L (AST/SGOT) Alanine Aminotransferase 34 U/L (ALT/SGPT) Alkaline Phosphatase 66 U/L Total Protein 6.2 GM/DL Albumin 3.3 GM/DL Administered Medications Medications (Trade) Dose Ordered Sig/Hardeep Route PRN Reason Start Time Stop Time Status Last Admin Dose Admin Insulin Aspart 1 1 Q4H SQ 09/23/16 03:00 09/26/16 18:38 Potassium Chloride 100 ml @ 50 mls/hr Q2H PRN IV For Potassium 3.3 - 3.5 mEq/L 09/23/16 03:00 09/23/16 04:26 Potassium Phosphate 30 mmol/ Sodium Chloride 260 ml @ 42 mls/hr UNSCH PRN IV SEE LABEL COMMENTS 09/23/16 03:00 09/23/16 16:38 Ceftriaxone Sodium/Sodium Chloride (Rocephin Inj/NS Inj) 100 ml @ 200 mls/hr Q24H IV 09/23/16 22:00 09/26/16 21:11 Lorazepam (Ativan Inj) 0.5 mg Q4H PRN IV PUSH ANXIETY 09/23/16 03:30 09/26/16 08:56 IV Flush (NS Flush) 2 ml BID IV FLUSH 09/23/16 09:00 09/27/16 09:26 Pantoprazole Sodium (Protonix Inj) 40 mg DAILY IV 09/23/16 09:00 09/27/16 09:25 Miscellaneous Information 1 [id number] XX 09/23/16 03:30 09/23/16 03:30 Chlorhexidine Gluconate (Chlorhexidine 2% Cloth) 3 pack Taper DAILY@04 TOP 09/23/16 04:00 09/19/17 03:59 09/27/16 04:00 Dexamethasone Sodium Phosphate 10 mg 10 mg Q6HR IV PUSH 09/23/16 13:15 09/27/16 04:54 Levetriacetam/ Sodium Chloride (Keppra Inj/NS Inj) 105 ml @ 420 mls/hr Q12HR IV 09/23/16 21:00 09/27/16 09:26 Haloperidol Lactate (Haldol Inj) 2 mg Q6H PRN IV PUSH AGITATION AND/OR HALLUCINATION 09/24/16 01:00 09/24/16 05:36 Carvedilol 3.125 mg 3.125 mg Q12HR PO 09/24/16 09:00 09/26/16 21:11 Sodium Chloride (NS 1000 ml Inj) 1,000 ml @ 75 mls/hr [id number] IV 09/24/16 15:15 09/26/16 21:11 Mannitol 25 gm 25 gm Q6H IV 09/24/16 17:00 09/27/16 05:17 Dexmedetomidine HCl 50 ml @ 0 mls/hr TITRATE IV 09/25/16 13:30 09/27/16 03:02 Heparin Sodium/ Dextrose (Heparin-D5W Inj) 250 ml @ 0 mls/hr TITRATE IV 09/25/16 18:15 09/26/16 13:14 Objective Remarks GENERAL: Elderly female, sitting up in bed, in nad. +confused SKIN: Warm and dry. HEAD: Normocephalic. EYES: No injection or drainage. NECK: Supple, trachea midline. CARDIOVASCULAR: +S1/S2 RESPIRATORY: Breath sounds equal bilaterally. No accessory muscle use. GASTROINTESTINAL: Abdomen soft, non-tender, nondistended. EXTREMITIES: No cyanosis NEUROLOGICAL: awake. normal speech. able to move extremities. confused Assessment/Plan Problem List: (1) Brain mass Status: Acute Plan: --CT brain showed small focal hemorrhage involving right temporal lobe with prominent with vasogenic edema. Underlying neoplasm is not excluded. 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 --? plan for +biopsy vs. resection 09/28/16 by NS --CT ab/pelvis: no mets (2) Pulmonary embolism Status: Acute Plan: --CTA showed PE --plan for IVC filter placement, currently on heparin gtt --u/s legs: no DVT Assessment 71y/o female with pulmonary embolism, admitted with AMS. h/o atrial fibrillation Attending Statement awake and alert. anxious about brain surg tomorrow. s/p IVC filter. Off of heparin. D/W RN and pt. The exam, history, and the medical decision-making described in the above note were completed with the assistance of the mid-level provider. I reviewed and agree with the findings presented. I attest that I had a [id number] encounter with the patient on the same day, and personally performed and documented my assessment and findings in the medical record. Jenniffer Ramirez Sep 27, 2016 11:16 Donis Tim MD Sep 27, 2016 20:57
--- NOTE | 2016-09-27 11:25 | HHI.HCPN ---
Reason for visit a. To assist with evaluation and management of symptoms including: restlessness/agitation. b. To assist medical decision maker(s) with: better understanding of current medical conditions; weighing benefits/burdens of medical treatment options; making medical treatment decisions. . Subjective/Interval History Patient seen in ICU, awake and alert. Verbal and following commands. alert to self, place and situation, intermittent confused but easily reoriented. Endorsing mild lower abdominal pain, denies shortness of breath, n/v or any other discomfort. Patient remains afebrile, hypertensive with SBP in the 140's- 150's. Tolerating RA. Labs today including WBC 9.7, Hgb 12.1, plt count 234. Na 144, K 3.6, Bun/creat 24/0.70. No new imaging. Patient has been seen by Dr. Tim, IVC filter recommended given anticoagulation contraindicated. Dr. Ibrahim has been in contact with family, guided brain biopsy or right temporal lobe mass likely tomorrow. Case discussed with bedside RN and Dr. Johnson. . Family/friend interactions Prosper Romo -[facility], at bedside. Medical update provided. He tells me that [facility] has been updated with plan of care by Dr. Ibrahim. Family in agreement with plan of care to include IVC filter and brain biopsy. All questions have been answered in great detail. . Advance Directives Living Will: Copy in medical record Health Care Surrogate: Copy in medical record Durable Power of Hr Associate: Completed, but not made available Advance Directive Specifics Date completed: 06/29/2015. . Health Care Surrogate(s): [facility] Crystal Romo, emily Romo. . Documented care wishes: Withheld or withdrawal life prolonging measures in the event of a severe and incurable or irreversible illness, disease or condition, or end-stage condition , or persistent vegetative state. . Significant change in goals: FULL CODE. Continue aggressive care to include brain biopsy and IVC filter. . Objective Vital Signs Date Time Temp Pulse Resp B/P Pulse Ox O2 Delivery O2 Flow Rate FiO2 09/27/16 08:00 97.4 52 14 145/84 97 09/27/16 06:00 60 09/27/16 04:00 72 09/27/16 04:00 98.3 72 20 159/90 98 09/27/16 02:00 69 09/27/16 00:00 75 09/27/16 00:00 98.1 75 22 149/73 100 09/26/16 22:00 82 09/26/16 20:00 98.3 56 19 128/74 97 09/26/16 20:00 56 09/26/16 18:00 70 09/26/16 16:00 69 09/26/16 16:00 98.4 69 18 138/71 99 09/26/16 14:00 74 09/26/16 12:00 59 09/26/16 12:00 98.4 59 18 141/81 97 Intake & Output 09/27/16 09/27/16 07:00 19:00 Intake Total 135 ml Output Total 400 ml Balance -265 ml IV Total 135 ml Output Urine Total 400 ml # Bowel Movements 0 Physical Exam CONSTITUTIONAL/GENERAL: This is an adequately nourished patient, in no apparent distress. alert and following commands. TUBES/LINES/DRAINS: PIV's, SCDs, Armstrong catheter. SKIN: No jaundice, rashes, or lesions. Ecchymoses on upper extremities. No wounds seen anteriorly. Skin temperature appropriate. Not diaphoretic. HEAD: Atraumatic. Normocephalic. EYES: Pupils equal and round and reactive. No scleral icterus. No injection or drainage. ENT: Hearing appears normal. Nose without bleeding or purulent drainage. Mouth close. NECK: Trachea midline. Supple, nontender. CARDIOVASCULAR: Regular rate and rhythm without murmurs, gallops, or rubs. No JVD. Peripheral pulses symmetric. RESPIRATORY/CHEST: Symmetric, unlabored respirations. Clear but diminished to auscultation. Breath sounds equal bilaterally. GASTROINTESTINAL: Abdomen soft, nondistended. No guarding. Bowel sounds present. GENITOURINARY: Without palpable bladder distension. Armstrong catheter in place. MUSCULOSKELETAL: Extremities without clubbing, cyanosis, or edema. No mottling or clubbing. trace edema to BUE. NEUROLOGICAL: alert and oriented to self, place and situation. Intermittent confusion but easily reoriented. PSYCHIATRIC: calm. pleasant and cooperative. . Diagnostic Tests Laboratory Laboratory Tests Test 09/24/16 09/24/16 09/25/16 09/25/16 16:45 17:18 06:15 20:05 Urine Osmolality 475 MOSM/KG (300-1300) Blood Gas Puncture Site RT RADIAL Blood Gas Patient Temperature 98.6 Blood Gas HCO3 19 mmol/L (22-26) Blood Gas Base Excess -5.1 mmol/L (-2-2) Blood Gas Oxygen Saturation 96 % (90-100) Arterial Blood pH 7.40 (7.380-7.420) Arterial Blood Partial 32 mmHg (38-42) Pressure CO2 Arterial Blood Partial 118 mmHg Pressure O2 (61-120) Arterial Blood Oxygen Content 16.1 Vol % (12.0-20.0) Arterial Blood 1.2 % (0-4) Carboxyhemoglobin Arterial Blood Methemoglobin 1.5 % (0-2) Blood Gas Hemoglobin 11.8 G/DL (12.0-16.0) Oxygen Delivery Device VENTILATOR Blood Gas Ventilator Setting 500/14/5PEEP Blood Gas Inspired Oxygen 40 % White Blood Count 12.7 TH/MM3 10.2 TH/MM3 (4.0-11.0) (4.0-11.0) Red Blood Count 4.02 MIL/MM3 4.07 MIL/MM3 (4.00-5.30) (4.00-5.30) Hemoglobin 12.0 GM/DL 12.3 GM/DL (11.6-15.3) (11.6-15.3) Hematocrit 35.4 % 35.8 % (35.0-46.0) (35.0-46.0) Mean Corpuscular Volume 88.1 FL 88.1 FL (80.0-100.0) (80.0-100.0) Mean Corpuscular Hemoglobin 29.8 PG 30.2 PG (27.0-34.0) (27.0-34.0) Mean Corpuscular Hemoglobin 33.8 % 34.3 % Concent (32.0-36.0) (32.0-36.0) Red Cell Distribution Width 14.3 % 14.5 % (11.6-17.2) (11.6-17.2) Platelet Count 253 TH/MM3 216 TH/MM3 (150-450) (150-450) Mean Platelet Volume 9.3 FL 8.8 FL (7.0-11.0) (7.0-11.0) Neutrophils (%) (Auto) 81.3 % (16.0-70.0) Lymphocytes (%) (Auto) 8.7 % (9.0-44.0) Monocytes (%) (Auto) 9.9 % (0.0-8.0) Eosinophils (%) (Auto) 0.0 % (0.0-4.0) Basophils (%) (Auto) 0.1 % (0.0-2.0) Neutrophils # (Auto) 10.4 TH/MM3 (1.8-7.7) Lymphocytes # (Auto) 1.1 TH/MM3 (1.0-4.8) Monocytes # (Auto) 1.3 TH/MM3 (0-0.9) Eosinophils # (Auto) 0.0 TH/MM3 (0-0.4) Basophils # (Auto) 0.0 TH/MM3 (0-0.2) CBC Comment AUTO DIFF Differential Total Cells 100 Counted Neutrophils % (Manual) 86 % (16-70) Band Neutrophils % 1 % (0-6) Lymphocytes % 8 % (9-44) Monocytes % 5 % (0-8) Neutrophils # (Manual) 11.0 TH/MM3 (1.8-7.7) Differential Comment FINAL DIFF MANUAL Platelet Estimate NORMAL (NORMAL) Platelet Morphology Comment NORMAL (NORMAL) Red Cell Morphology Comment NORMAL (NORMAL) Sodium Level 143 MEQ/L (136-145) Potassium Level 3.7 MEQ/L (3.5-5.1) Chloride Level 111 MEQ/L (98-107) Carbon Dioxide Level 20.6 MEQ/L (21.0-32.0) Anion Gap 11 MEQ/L (5-15) Blood Urea Nitrogen 18 MG/DL (7-18) Creatinine 0.60 MG/DL (0.50-1.00) Estimat Glomerular Filtration 98 ML/MIN (>89) Rate Random Glucose 110 MG/DL (74-106) Calcium Level 8.3 MG/DL (8.5-10.1) Phosphorus Level 3.5 MG/DL (2.5-4.9) Magnesium Level 2.4 MG/DL (1.5-2.5) Test 09/25/16 09/26/16 09/26/16 09/26/16 20:08 00:48 05:50 10:07 Prothrombin Time 12.1 SEC (9.8-11.6) Prothromb Time International 1.1 RATIO Ratio Activated Partial 21.0 SEC 62.5 SEC 128.8 SEC 64.7 SEC Thromboplast Time (24.3-30.1) (24.3-30.1) (24.3-30.1) (24.3-30.1) White Blood Count 8.9 TH/MM3 (4.0-11.0) Red Blood Count 4.06 MIL/MM3 (4.00-5.30) Hemoglobin 12.2 GM/DL (11.6-15.3) Hematocrit 36.0 % (35.0-46.0) Mean Corpuscular Volume 88.7 FL (80.0-100.0) Mean Corpuscular Hemoglobin 30.1 PG (27.0-34.0) Mean Corpuscular Hemoglobin 34.0 % Concent (32.0-36.0) Red Cell Distribution Width 14.6 % (11.6-17.2) Platelet Count 212 TH/MM3 (150-450) Mean Platelet Volume 9.6 FL (7.0-11.0) Neutrophils (%) (Auto) 82.2 % (16.0-70.0) Lymphocytes (%) (Auto) 11.5 % (9.0-44.0) Monocytes (%) (Auto) 6.0 % (0.0-8.0) Eosinophils (%) (Auto) 0.0 % (0.0-4.0) Basophils (%) (Auto) 0.3 % (0.0-2.0) Neutrophils # (Auto) 7.3 TH/MM3 (1.8-7.7) Lymphocytes # (Auto) 1.0 TH/MM3 (1.0-4.8) Monocytes # (Auto) 0.5 TH/MM3 (0-0.9) Eosinophils # (Auto) 0.0 TH/MM3 (0-0.4) Basophils # (Auto) 0.0 TH/MM3 (0-0.2) CBC Comment DIFF FINAL Differential Comment Sodium Level 142 MEQ/L (136-145) Potassium Level 3.7 MEQ/L (3.5-5.1) Chloride Level 110 MEQ/L (98-107) Carbon Dioxide Level 20.7 MEQ/L (21.0-32.0) Anion Gap 11 MEQ/L (5-15) Blood Urea Nitrogen 24 MG/DL (7-18) Creatinine 0.66 MG/DL (0.50-1.00) Estimat Glomerular Filtration 88 ML/MIN (>89) Rate Random Glucose 140 MG/DL (74-106) Calcium Level 8.4 MG/DL (8.5-10.1) Magnesium Level 2.6 MG/DL (1.5-2.5) Total Bilirubin 0.4 MG/DL (0.2-1.0) Aspartate Amino Transf 16 U/L (15-37) (AST/SGOT) Alanine Aminotransferase 30 U/L (10-53) (ALT/SGPT) Alkaline Phosphatase 70 U/L (45-117) Total Protein 6.2 GM/DL (6.4-8.2) Albumin 3.2 GM/DL (3.4-5.0) Test 09/26/16 09/27/16 09/27/16 09/27/16 16:30 00:52 03:25 06:15 Activated Partial 78.8 SEC 95.9 SEC 51.6 SEC 53.2 SEC Thromboplast Time (24.3-30.1) (24.3-30.1) (24.3-30.1) (24.3-30.1) White Blood Count 9.7 TH/MM3 (4.0-11.0) Red Blood Count 4.07 MIL/MM3 (4.00-5.30) Hemoglobin 12.1 GM/DL (11.6-15.3) Hematocrit 36.1 % (35.0-46.0) Mean Corpuscular Volume 88.6 FL (80.0-100.0) Mean Corpuscular Hemoglobin 29.8 PG (27.0-34.0) Mean Corpuscular Hemoglobin 33.6 % Concent (32.0-36.0) Red Cell Distribution Width 14.6 % (11.6-17.2) Platelet Count 234 TH/MM3 (150-450) Mean Platelet Volume 9.5 FL (7.0-11.0) Neutrophils (%) (Auto) 80.2 % (16.0-70.0) Lymphocytes (%) (Auto) 10.4 % (9.0-44.0) Monocytes (%) (Auto) 9.1 % (0.0-8.0) Eosinophils (%) (Auto) 0.0 % (0.0-4.0) Basophils (%) (Auto) 0.3 % (0.0-2.0) Neutrophils # (Auto) 7.8 TH/MM3 (1.8-7.7) Lymphocytes # (Auto) 1.0 TH/MM3 (1.0-4.8) Monocytes # (Auto) 0.9 TH/MM3 (0-0.9) Eosinophils # (Auto) 0.0 TH/MM3 (0-0.4) Basophils # (Auto) 0.0 TH/MM3 (0-0.2) CBC Comment DIFF FINAL Differential Comment Sodium Level 144 MEQ/L (136-145) Potassium Level 3.6 MEQ/L (3.5-5.1) Chloride Level 114 MEQ/L (98-107) Carbon Dioxide Level 19.6 MEQ/L (21.0-32.0) Anion Gap 10 MEQ/L (5-15) Blood Urea Nitrogen 24 MG/DL (7-18) Creatinine 0.70 MG/DL (0.50-1.00) Estimat Glomerular Filtration 82 ML/MIN (>89) Rate Random Glucose 130 MG/DL (74-106) Calcium Level 8.5 MG/DL (8.5-10.1) Total Bilirubin 0.6 MG/DL (0.2-1.0) Aspartate Amino Transf 19 U/L (15-37) (AST/SGOT) Alanine Aminotransferase 34 U/L (10-53) (ALT/SGPT) Alkaline Phosphatase 66 U/L (45-117) Total Protein 6.2 GM/DL (6.4-8.2) Albumin 3.3 GM/DL (3.4-5.0) Result Diagram: 09/27/16 0325 09/27/16 032 Procedures * 09/25/16 -Self extubation * 09/24/16 -intubation . Assessment and Plan Disease Oriented Problem List: (1) Brain mass (2) Acute respiratory failure (3) Atrial fibrillation (4) Pulmonary embolism Symptom Scale: (1) Anxiety 0-10 Scale: Unable to quantify Comment: Improving, on Precedex. (2) Constipation 0-10 Scale: Unable to quantify Comment: Adding Senna-s Pertinent Non-Medical Issues Psychosocial: . Retired. has 3 children. Spiritual: [employer]. Legal: AD completed. Pending copy from family. Ethical issues impacting care: Pending designation of health-care surrogate naming [id number] Judith as HCS. . Important Contacts Daughter Crystal Romo . . Prognosis Mrs. Bay is a 71-year-old female with a past history of atrial fibrillation not on anticoagulation and questionable schizophrenia. 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 Patient is a high risk of further decline, complications and . . Code Status: Full Code Plan * CODE STATUS: Full code * MEDICAL DECISION-MAKING: HCS Crystal Romo, alternate Garcia Demetrius. * GOALS OF CARE: Continue full CODE STATUS to include IVC filter and brain mass biopsy/goals of care will be readdressed once biopsy results/treatment options are discussed or in the event of an acute decline. HCS verbalized that patient' s quality of life is very important and that if any treatment options does not offer improved quality of life or the risks outweigh any benefits, family would transition patient to comfort directed care. For now, goals are aggressive. * SYMPTOMS: == Anxiety/agitation. tolerating weaning off Precedex drip. Lorazepam IV available as needed. management deferred to employment director. == Constipation, last documented BM on 09/23, patient endorsing lower abdominal pain , Adding docusate/senna at HS. * Case discussed with bedside RN and Dr. Johnson. * Palliative care contact information has been provided to family. * Palliative care will continue to follow-up for further clarifications of goals of care, assist with communication, symptom management and provide emotional support. . Time Spent Total Floor Time (mins): 38 (Total time to include review of medical records, physical exam, bedside conversation with family and case discussion with bedside RN and Dr. Brumfield. ) >50% Counseling/Coord of Care: Yes Attestation To help prompt me to consider important information that might be impacting today's encounter and assessment, information from prior notes written by myself or my colleagues may have been "brought forward" into today's note. My signature on this note, however, is an attestation that I personally performed the exam, history, and/or decision-making noted today, and, unless otherwise indicated, the interactions with patient, family, and staff as well as the review of records all occurred today. I also attest that the listed assessment and stated plan reflect my best clinical judgment today based on the combination of historical information, prior notes, and today's exam/ interactions. When time spent is documented, it refers only to time spent today by the signer, or if indicated, combined time spent today by collaborating physician/nurse practitioner. Debbie Hooks Sep 27, 2016 11:25
[2016-09-27] MEDS ORDERED: IOHEXOL 350 MG/ML 50 ML BTL (for RAD DIAG) IV ONE (14:11)
--- NOTE | 2016-09-27 14:54 | PD.RAD ---
Post Procedure Progress Note Pre Procedure Diagnosis: (1) Pulmonary embolism (2) Brain mass Post Procedure Diagnosis: (1) Pulmonary embolism (2) Brain mass Procedure Date: Sep 27, 2016 Supervising Radiologist: Flynn Canales JR Proceduralist/Assist: Garima Foote, RT(R), Suki Larry RT(R)() Anesthesia: Local Plan of Activity Patient to Unit: Nursing Unit Patient Condition: Good See PACS Report for procedural detail/treatment Vascular-Venous Procedure Procedure 1 Procedure(s): Retrievable IVC Filter Access Access Site(s): Right Femoral Vein Findings: US of right groin shows no DVT. Retrievable IVC filter placed without difficulty Can be removed up to one year from today's date. Plan Remove IVC filter within one year Jr. Parker,Flynn Reveles MD Sep 27, 2016 14:54
--- NOTE | 2016-09-27 16:01 | RADRPT ---
EXAM DATE/TIME: 09/27/2016 15:03 [facility] COMPARISON: No previous studies available for comparison. INDICATIONS : Foreign body. Post IVC filter placement. MEDICAL HISTORY : Cardiovascular disease SURGICAL HISTORY : Hysterectomy. ENCOUNTER: Subsequent ACUITY: 2 days PAIN SCORE: 0/10 LOCATION: Bilateral abdomen. FINDINGS: 2 supine frontal views of the abdomen demonstrate air within bowel in a nonobstructive pattern. IVC f ilter is present overlying the right aspect of the L2 and L3 vertebral bodies. No other radiopaque fo reign body is seen. Multiple lines overlie the patient. There is dextroscoliosis of the lumbar spine with degenerative change. Visualized lung bases are clear. CONCLUSION: 1. There is an IVC filter present overlying the right aspect of the L2 and L3 vertebral bodies. Other brunson, no radiopaque foreign body is seen. 2. Otherwise, no acute finding is visualized. Bon Carbajal MD on September 27, 2016 at 15:55 Board Certified Radiologist. This report was verified electronically.
--- NOTE | 2016-09-27 16:10 | RADRPT ---
EXAM DATE/TIME: 09/27/2016 13:13 [facility] COMPARISON: ABDOMEN KUB ONLY, September 27, 2016, 15:03. INDICATIONS : Patient with history of pulmonary embolism in need of retrievable IVC filter placement. Patient for i ntracranial surgery. MEDICAL HISTORY : AMS, Schizophrenia, A-Fib, PE SURGICAL HISTORY : Tonsillectomy, Hysterectomy ENCOUNTER: Initial ACUITY: 1 week PAIN SCORE: 0/10 FLUORO TIME: 0.8 minutes ACCESS SITE: Right Femoral vein CONTRAST: 1.) 20 cc Omnipaque (iohexol) 350 DEVICE(S): 1.) Inferior vena cava Retrievable Femoral Bard Stewart filter PROCEDURE : 1. Ultrasound-guided venipuncture. 2. Inferior venacavogram. 3. Inferior vena cava filter placement. 4. Conscious sedation with continuous EKG and oximetry monitoring. The risks, benefits and alternatives to the procedure were explained and verbal and written consent w as obtained. The site was prepped in sterile fashion. Full sterile technique was used, including ca p, mask, sterile gloves and gown and a large sterile sheet. Hand hygiene and 2% chlorhexidine and/or betadine/alcohol prep was utilized per protocol for cutaneous antisepsis. The skin and subcutaneous tissues were infiltrated with local anesthetic solution. With ultrasound and fluoroscopic guidance the targeted vein was punctured and a vascular sheath was p laced. Inferior venacavogram was performed to demonstrate level of renal veins. No caval thrombus was identified. The prescribed filter was deployed in the infrarenal inferior vena cava. Following deplo yment the filter was identified in good position. A technical abnormality occurred while trying to sa ve the image display near IVC filter. The image was lost. A KUB will be performed. See that report ce ntrally. Conscious sedation was performed with the prescribed dosages and duration as above. The patient dennys ated the procedure well and there were no complications. EKG and oximetry remained stable throughout the procedure. The patient was sent to post anesthesia recovery in stable condition. CONCLUSION: Uncomplicated inferior vena cava filter placement as above. This is a retrievable device and can be r etrieved up to one year from its date of placement. Flynn Canales Jr., MD on September 27, 2016 at 16:07 Board Certified Radiologist. This report was verified electronically.
--- NOTE | 2016-09-27 16:36 | HHI.NSPN ---
(Joanne Mariano) Note Status Status: Progress Note (Joanne Mariano) Interval History Interval History Ms. Bay is a 71 year old female who presented to [facility] with acute delirium. She had reported peopler were coming to her house, she was having panic attacks. She was brought to [place] by her family member. A CT Brain showed a small focal hemorrhage in right temporal lobe with large amount of vasogenic edema. No known history of brain masses or tumors. She also reports of recently having headaches, as well as some weakness on the left side. 09/24/16: Came to evaluate pt but off the floor for MRI for prolonged period of time. Called MRI and pt pulled out IV and is agitated and tech states she may need to be sedated and intubated for MRI as she is not going to hold still and lost IV access for contrast MRI. 09/25/16: Pt sedated on Diprivan and Fentanyl drips. Intubated. Opens eyes when stimulated. Follows simple commands. 09/26/16: MRI Brain w/contrast shows underlying mass. She also now with DVT/PE on heparin drip. Currently on soft restraints. Oriented, and follows simple commands. No family at bedside. 09/27: drowsy on precedex due to agitation. we had discussed with her daughter who is POA over the phone, she is requesting for a needle bx. (Joanne Mariano) Labs, Micro, & Vital Signs Results Date Time Temp Pulse Resp B/P Pulse Ox O2 Delivery O2 Flow Rate FiO2 09/27/16 16:00 98.4 92 22 165/73 100 09/27/16 16:00 92 09/27/16 12:00 75 09/27/16 12:00 97.4 75 24 159/80 98 09/27/16 10:00 59 09/27/16 08:00 97.4 52 14 145/84 97 09/27/16 08:00 52 09/27/16 06:00 60 09/27/16 04:00 72 09/27/16 04:00 98.3 72 20 159/90 98 09/27/16 02:00 69 09/27/16 00:00 75 09/27/16 00:00 98.1 75 22 149/73 100 09/26/16 22:00 82 09/26/16 20:00 98.3 56 19 128/74 97 09/26/16 20:00 56 09/26/16 18:00 70 09/27/16 07:00 Intake Total 1217 ml Output Total 925 ml Balance 292 ml Constitutional Vital Signs Date Time Temp Pulse Resp B/P Pulse Ox O2 Delivery O2 Flow Rate FiO2 09/27/16 16:00 98.4 92 22 165/73 100 09/27/16 16:00 92 09/27/16 12:00 75 09/27/16 12:00 97.4 75 24 159/80 98 09/27/16 10:00 59 09/27/16 08:00 97.4 52 14 145/84 97 09/27/16 08:00 52 09/27/16 06:00 60 09/27/16 04:00 72 09/27/16 04:00 98.3 72 20 159/90 98 09/27/16 02:00 69 09/27/16 00:00 75 09/27/16 00:00 98.1 75 22 149/73 100 09/26/16 22:00 82 09/26/16 20:00 98.3 56 19 128/74 97 09/26/16 20:00 56 09/26/16 18:00 70 09/27/16 07:00 Intake Total 1217 ml Output Total 925 ml Balance 292 ml (Joanne Mariano) Review of Systems/Exam Exam Drowsy on precedex. CN: Pupils 4 mm equal, EOMs grossly intact. Facial appear grossly symmetric at rest Neck: soft, supple Motor: moves all four extremities grossly symmetrically Heart: NSR no murmurs Abdomen: Soft Plantars downgoing b/l Cerebellar: cannot assess due to clinical condition (Joanne Mariano) Medications Current Medications Current Medications Medications (Trade) Dose Ordered Sig/Hardeep Route PRN Reason Start Time Stop Time Status Last Admin Dose Admin Dextrose (D50w (Vial) Inj) 25 ml UNSCH PRN IV PUSH HYPOGLYCEMIA-SEE COMMENTS 09/23/16 03:00 Glucagon (Glucagon Inj) 1 mg UNSCH PRN OTHER HYPOGLYCEMIA-SEE COMMENTS 09/23/16 03:00 Insulin Aspart 1 1 Q4H SQ 09/23/16 03:00 09/26/16 18:38 Potassium Chloride 100 ml @ 50 mls/hr Q2H PRN IV For Potassium 2.8 - 3.2 mEq/L 09/23/16 03:00 Potassium Chloride (KCl 20 Meq Premix Inj) 100 ml @ 50 mls/hr Q2H PRN IV For Potassium 2.8 - 3.2 mEq/L 09/23/16 03:00 Potassium Chloride 40 meq 40 meq UNSCH PRN PO/TUBE For Potassium 3.3 - 3.5 mEq/L 09/23/16 03:00 Potassium Chloride 100 ml @ 25 mls/hr UNSCH PRN IV For Potassium 3.3 - 3.5 mEq/L 09/23/16 03:00 Potassium Chloride 100 ml @ 50 mls/hr Q2H PRN IV For Potassium 3.3 - 3.5 mEq/L 09/23/16 03:00 09/23/16 04:26 Magnesium Sulfate/ Sodium Chloride (Magnesium Sulfate Inj/NS Inj) 100 ml @ 50 mls/hr UNSCH PRN IV For Magnesium 0.9 - 1.1 mg/dL 09/23/16 03:00 Magnesium Oxide 800 mg 800 mg UNSCH PRN PO For Magnesium 1.2 - 1.6 mg/dL 09/23/16 03:00 Magnesium Sulfate/ Sodium Chloride (Magnesium Sulfate Inj/NS Inj) 100 ml @ 50 mls/hr UNSCH PRN IV For Magnesium 1.2 - 1.6 mg/dL 09/23/16 03:00 Potassium Phosphate 2000 mg 2,000 mg Q4H PRN PO For Phosphorus < 2.5 mg/dL 09/23/16 03:00 Sodium Phosphate/ Sodium Chloride (Sodium Phosphate Inj/NS 250 ml Inj) 250 ml @ 42 mls/hr UNSCH PRN IV For Phosphorus < 2.5 mg/dL 09/23/16 03:00 Potassium Chloride (KCl 40 Meq/30 ml Liq) 40 meq UNSCH PRN PO/TUBE SEE LABEL COMMENTS 09/23/16 03:00 Potassium Phosphate 2000 mg 2,000 mg UNSCH PRN PO/TUBE SEE LABEL COMMENTS 09/23/16 03:00 Potassium Phosphate 30 mmol/ Sodium Chloride 260 ml @ 42 mls/hr UNSCH PRN IV SEE LABEL COMMENTS 09/23/16 03:00 09/23/16 16:38 Ceftriaxone Sodium/Sodium Chloride (Rocephin Inj/NS Inj) 100 ml @ 200 mls/hr Q24H IV 09/23/16 22:00 09/26/16 21:11 Hydralazine HCl (Apresoline Inj) 10 mg Q4H PRN IV PUSH SBP >160 09/23/16 03:30 Labetalol HCl (Trandate Inj) 10 mg Q4H PRN IV PUSH SBP >160 09/23/16 03:30 Lorazepam (Ativan Inj) 0.5 mg Q4H PRN IV PUSH ANXIETY 09/23/16 03:30 09/26/16 08:56 IV Flush (NS Flush) 2 ml UNSCH PRN IV FLUSH FLUSH AFTER USING IV ACCESS 09/23/16 03:30 IV Flush (NS Flush) 2 ml BID IV FLUSH 09/23/16 09:00 09/27/16 09:26 Pantoprazole Sodium (Protonix Inj) 40 mg DAILY IV 09/23/16 09:00 09/27/16 09:25 Ondansetron HCl (Zofran Inj) 4 mg Q6H PRN IV NAUSEA OR VOMITING 09/23/16 03:30 Miscellaneous Information 1 Q361D XX 09/23/16 03:30 09/23/16 03:30 Chlorhexidine Gluconate (Chlorhexidine 2% Cloth) 3 pack Taper DAILY@04 TOP 09/23/16 04:00 09/19/17 03:59 09/27/16 04:00 Chlorhexidine Gluconate (Chlorhexidine 2% Cloth) 3 pack UNSCH PRN TOP HYGIENIC CARE 09/23/16 03:30 Dexamethasone Sodium Phosphate 10 mg 10 mg Q6HR IV PUSH 09/23/16 13:15 09/27/16 12:20 Levetriacetam/ Sodium Chloride (Keppra Inj/NS Inj) 105 ml @ 420 mls/hr Q12HR IV 09/23/16 21:00 09/27/16 09:26 Haloperidol Lactate (Haldol Inj) 2 mg Q6H PRN IV PUSH AGITATION AND/OR HALLUCINATION 09/24/16 01:00 09/24/16 05:36 Carvedilol 3.125 mg 3.125 mg Q12HR PO 09/24/16 09:00 09/26/16 21:11 Sodium Chloride (NS 1000 ml Inj) 1,000 ml @ 75 mls/hr [id number] IV 09/24/16 15:15 09/26/16 21:11 Mannitol 25 gm 25 gm Q6H IV 09/24/16 17:00 09/27/16 11:06 Dexmedetomidine HCl (Precedex Inj) 50 ml @ 0 mls/hr TITRATE IV 09/25/16 13:30 09/27/16 03:02 Chlorhexidine Gluconate (Hibiclens 4% Top Soln) 1 applic HS TOP 09/27/16 21:00 09/28/16 21:01 Senna/Docusate Sodium (Yocasta-Colace) 1 tab HS PO 09/27/16 21:00 (Joanne Mariano) Medical Decision Making MDM Remarks 71 y/o female brought by her family due to delirium and anxiety MRI Brain shows right temporal lobe mass Pulmonary Emboli (Joanne Mariano) Plan Plan Remarks for needle bx of brain mass tomorrow, f/u pathology NPO tonight (Joanne Mariano) Attending Statement We have discussed with her daughter the details including the [id number] details of the surgical procedure, its indications, alternatives, risks, and potential complications. Risks and potential complications include, but are not limited to, infection, blood loss, CSF leak, partial or complete loss of sight in one or both eyes, paresis, paralysis, permanent pain or difficulty swallowing, loss of bowel or bladder function, complications from anesthesia, blood clot, stroke, myocardial infarction, or even . The exam, history, and the medical decision-making described in the above note were completed with the assistance of the mid-level provider. I reviewed and agree with the findings presented. I attest that I had a [id number] encounter with the patient on the same day, and personally performed and documented my assessment and findings in the medical record. (Dinh Ibrahim MD) Joanne Mariano Sep 27, 2016 16:36 Dinh Ibrahim MD Oct 01, 2016 18:05
[2016-09-27] MEDS: DOCUSATE SODIUM 50 MG/SENNA 8.6 MG TAB PO SCH (21:49)
[2016-09-27] MEDS: CHLORHEXIDINE GLUCONATE 4% SOLN 120 ML BTL TOP SCH (21:51)
[2016-09-27] MEDS: cefTRIAXone INJ 1,000 MG in SODIUM CHLORIDE 0.9% INJ 100 ML IV SCH (21:53)
[2016-09-27] MEDS ORDERED: traMADol HCL 50 MG TAB PO PRN (23:00)
[2016-09-28] VITALS (9 sets, daily range): BP systolic 138–161; BP diastolic 65–84; PULSE 69–92; RESP 16–22; TEMP 97.9–98.6; O2SAT 92–99
[2016-09-28] MEDS: INSULIN ASPART SUPPLEMENTAL SCALE SQ SCH ×6 (03:00→23:00)
[2016-09-28] MEDS: RESP: ALBUTEROL 2.5 MG/IPRATROPIUM 0.5 MG NEB (SCH) NEB ×2 (03:11→07:59)
[2016-09-28] MEDS: CHLORHEXIDINE GLUCONATE 2 % 1 PACK (2 CLOTHS) TOP SCH (04:31)
[2016-09-28] MEDS: MANNITOL 12.5 GM/50 ML VIAL IV SCH (04:32)
[2016-09-28] MEDS: DEXAMETHASONE SOD PHOS 4 MG/ML VIAL IV PUSH SCH ×3 (04:32→17:46)
[2016-09-28 06:21] LABS: AUTOMATED NEUTROPHIL # 7.9 TH/MM3 (1.8-7.7); BASOPHIL % 0.1 % (0.0-2.0); HEMATOCRIT 38.1 % (35.0-46.0); LYMPH % 12.1 % (9.0-44.0); LYMPHOCYTE # 1.2 TH/MM3 (1.0-4.8); MEAN CELL VOLUME 88.4 FL (80.0-100.0); MEAN CORPUSCULAR HEMOGLOBIN 30.1 PG (27.0-34.0); MONO % 5.6 % (0.0-8.0); NEUT % 82.2 % (16.0-70.0); PLATELET COUNT 248 TH/MM3 (150-450); RED BLOOD COUNT 4.31 MIL/MM3 (4.00-5.30); RED CELL DISTRIBUTION WIDTH 14.3 % (11.6-17.2); WHITE BLOOD COUNT 9.6 TH/MM3 (4.0-11.0)
[2016-09-28 06:29] LABS: HEMO FLAGS AUTO DIFF
[2016-09-28 06:43] LABS: BICARBONATE 21.5 MEQ/L (21.0-32.0); MAGNESIUM 2.2 MG/DL (1.5-2.5); POTASSIUM 3.5 MEQ/L (3.5-5.1)
--- NOTE | 2016-09-28 06:58 | HHI.CCPN ---
Subjective Remarks/Hospital Course 71-year-old female who reportedly was diagnosed with schizophrenia but who does not take any medications chronically presented to [facility] with one week history of paranoia and hallucinations. She said she believed people were coming into her house uninvited. She drove to her ex-daughter in-laws house and this woman's new was there and tried to redirect her as she reportedly has a h/o intermittent paranoid delusions. He took her back to her home yesterday but she was having intermittent episodes of panic so she was brought in for psychiatry evaluation. While doing psychiatric clearance, ED QUALITY ASSURANCE COACH and physician discovered that she had elevated troponin of 1.4 with normal CKMB fraction. Creatinine is normal at 0.63. Case was discussed with cardiology who recommended medical management including heparin. Before initiation of heparin, CT brain was obtained. This demonstrated small focal hemorrhage in right temporal lobe with large amount of vasogenic edema (without shift). Patient states she has had a bifrontal headache for about a week. No n/v/ seizures. She does state that she falls frequently (2-3 times in last 2 months) but denies head trauma. She states she has noticed some left leg weakness for about a week and she states she fell in [facility] pharmacy about a week ago due to leg weakness. She has noticed some decreased sensation on the left leg as well. She denies any changes in vision or speech. She does have dysarthric speech, but she states this is chronic. She states she has been having intermittent "panic attacks" with episodes of SOB and discomfort in her chest. She states this improves when her family tries to calm her down. She denies exertional CP/ SOB or hemoptysis. She has noticed BLE pedal edema ~ 1 week. She denies prior h/ o stroke. States she saw Dr. Antonio with neurology in the past. She has atrial fibrillation but denies having been on anticoagulation 09/24 Patient was given Ativan/Haldol overnight for agitation and confusion. MRI brain wo contrast yesterday showed abnormality in the right parietal occipital region that does show some blood clots and vasogenic edema. For MRI brain with contrast and EEG today. 09/25: While sedation was held patient self extubated. Patient more awake today following commands. 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 Mar, radiologist) 09/26 No acute events overnight. On Precedex drip for agitation and heparin drip for PE. Afebrile. 09/27 Patient is more awake and alert on Precedex and heparin drips. Afebrile 09/28 No acute events overnight. Off Precedex and heparin drips. s/p IVC filter placeemnt yesterday. For brain biopsy and possible craniotomy today. Objective Vital Signs Date Time Temp Pulse Resp B/P Pulse Ox O2 Delivery O2 Flow Rate FiO2 09/28/16 06:00 80 09/28/16 04:00 98.6 20 138/65 95 09/25/16 21:09 21 09/25/16 09:04 Nasal Cannula 4 Intake and Output 09/27/16 09/27/16 09/28/16 08:00 16:00 00:00 Intake Total 135 ml 517 ml 312 ml Output Total 400 ml 625 ml 550 ml Balance -265 ml -108 ml -238 ml Result Diagram: 09/28/16 0410 09/28/16 0410 Other Results Laboratory Tests Test 09/28/16 04:10 White Blood Count 9.6 TH/MM3 Red Blood Count 4.31 MIL/MM3 Hemoglobin 13.0 GM/DL Hematocrit 38.1 % Mean Corpuscular Volume 88.4 FL Mean Corpuscular Hemoglobin 30.1 PG Mean Corpuscular Hemoglobin 34.0 % Concent Red Cell Distribution Width 14.3 % Platelet Count 248 TH/MM3 Mean Platelet Volume 9.4 FL Neutrophils (%) (Auto) 82.2 % Lymphocytes (%) (Auto) 12.1 % Monocytes (%) (Auto) 5.6 % Eosinophils (%) (Auto) 0.0 % Basophils (%) (Auto) 0.1 % Neutrophils # (Auto) 7.9 TH/MM3 Lymphocytes # (Auto) 1.2 TH/MM3 Monocytes # (Auto) 0.5 TH/MM3 Eosinophils # (Auto) 0.0 TH/MM3 Basophils # (Auto) 0.0 TH/MM3 CBC Comment AUTO DIFF Sodium Level 142 MEQ/L Potassium Level 3.5 MEQ/L Chloride Level 110 MEQ/L Carbon Dioxide Level 21.5 MEQ/L Anion Gap 11 MEQ/L Blood Urea Nitrogen 18 MG/DL Creatinine 0.56 MG/DL Estimat Glomerular Filtration 106 ML/MIN Rate Random Glucose 126 MG/DL Calcium Level 8.2 MG/DL Phosphorus Level 2.5 MG/DL Magnesium Level 2.2 MG/DL Imaging Last Impressions Abdomen X-Ray 09/27/16 1500 Signed Impressions: Service Date/Time: Tuesday, September 27, 2016 15:03 - CONCLUSION: 1. There is an IVC filter present overlying the right aspect of the L2 and L3 vertebral bodies. Otherwise, no radiopaque foreign body is seen. 2. Otherwise, no acute finding is visualized. Bon Carbajal MD IVC Filter Placement X-Ray 09/27/16 0000 Signed Impressions: Service Date/Time: Tuesday, September 27, 2016 13:13 - CONCLUSION: Uncomplicated inferior vena cava filter placement as above. This is a retrievable device and can be retrieved up to one year from its date of placement. Flynn Canales Jr., MD Head CT 09/26/16 0600 Signed Impressions: Service Date/Time: Monday, September 26, 2016 08:07 - CONCLUSION: No significant change Bon Iyer MD Chest X-Ray 09/26/16 0600 Signed Impressions: Service Date/Time: Monday, September 26, 2016 03:22 - CONCLUSION: No acute disease. Bon Garcia MD Chest CT 09/25/16 0000 Signed Impressions: Service Date/Time: Sunday, September 25, 2016 16:38 - CONCLUSION: 1. Positive for pulmonary embolic disease. 2. No evidence for metastatic disease to the thorax. Eleuterio Pyle MD Abdomen/Pelvis CT 09/25/16 0000 Signed Impressions: Service Date/Time: Sunday, September 25, 2016 16:38 - CONCLUSION: 1. Positive for pulmonary embolus right lower lobe. 2. No evidence for metastatic disease within the abdomen and pelvis. Eleuterio Pyle MD Neck Magnetic Resonance Angiography 09/24/16 0000 Signed Impressions: Service Date/Time: Saturday, September 24, 2016 14:31 - CONCLUSION: Normal examination for a patient of this age. Eleuterio Pyle MD Lower Extremity Ultrasound 09/23/16 0000 Signed Impressions: Service Date/Time: Friday, September 23, 2016 11:17 - CONCLUSION: Negative exam with no evidence of deep venous thrombosis. Alo Barton MD Head Magnetic Resonance Angiography 09/23/16 0000 Signed Impressions: Service Date/Time: Friday, September 23, 2016 09:52 - CONCLUSION: Significant intracranial atherosclerotic disease, otherwise negative. Ciaran Davis MD FACR Brain MRI 09/23/16 0000 Signed Impressions: Service Date/Time: Friday, September 23, 2016 09:52 - CONCLUSION: Abnormality in the right parietal occipital region that does show some blood clots and vasogenic edema. This probably represents an ischemic event; however, the amount of vasogenic edema is concerning. MRI with contrast would be of benefit when the patient is clinically stable. Ciaran Davis MD FACR Objective Remarks GENERAL: Patient is 71 yo lying in bed in no acute resp distress SKIN: Warm and dry. HEAD: Normocephalic. EYES: No scleral icterus. No injection or drainage. NECK: Supple, trachea midline. No JVD or lymphadenopathy. CARDIOVASCULAR: Regular rate and rhythm without murmurs, gallops, or rubs. RESPIRATORY: Breath sounds equal bilaterally. No accessory muscle use. GASTROINTESTINAL: Abdomen soft, non-tender, nondistended. MUSCULOSKELETAL: No cyanosis, or edema. Neuro: Awake and alert A/P Assessment and Plan NEURO: Acute R temporal lobe hemorrhage with edema. Right occipitotemporal mass 5x 3 cm on MRI Schizophrenia Anxiety Off Precedex drip, monitor neuro status MRI with contrast 09/24/16 shows Right occipitotemporal mass 5x 3 cm on MRI ? Glioma Continue Decadron 10 mg IV every 6 hours, Keppra for seizure prophylaxis Maintain SBP <160. NSG_ Dr. Gomez for brain biopsy and possible craniotomy today Neurology Dr. Chung following RESP: Acute respiratory failure PE RLL Tobacco abuse Self extubated 09/25/16 about 0900 am Oxygen PRN keep sat >92% Continue DuoNeb every 6 hours scheduled and when necessary On Heparin drip for PE CV: Atrial fibrillation Elevated troponin -?neurogenic She received aspirin 324 in the ED. Monitor HR and BP keep MAP>65mmHg Echo 09/23 showed EF 30-35% with wall motion abnormalities..takotsubo syndrome vs CAD. Cards- Dr. Park GI: NPO fo surgery. Protonix for GI prophylaxis FEN/RENAL: Monitor renal function, I/O's, electrolytes replacement per protocol. On NS@75ml/hr ID: Possible UTI Urinalysis shows 12 WBCs and trace leukocyte esterase. Continue Rocephin 1 g IV every 24 hours HEME: Monitor CBC. , Heme is following s/p IVC filter placement 09/27. ENDO: Random cortisol appropriate, hemoglobin A1c 5.3 TSH is normal. SSI if needed for glycemic control PROPH: SCDs and teds for DVT prophylaxis. On Heparin drip for PE Protonix 40 mg IV daily for stress ulcer prophylaxis. ACCESS: Peripheral IV providing adequate access at this time. Palliative care on case Level 3 Lyudmila Johnson MD Sep 28, 2016 06:58
[2016-09-28] MEDS ORDERED: LIDOCAINE 1%/EPINEPHrine 1:100,000 SOLN 30 ML VIAL ONE (07:46)
[2016-09-28] MEDS ORDERED: VANCOMYCIN HCL 1000 MG VIAL ONE (07:46)
[2016-09-28] MEDS ORDERED: GENTAMICIN SULFATE 80 MG/2 ML VIAL ONE (07:47)
[2016-09-28] MEDS ORDERED: BACITRACIN TOP OINT 15 GM TUBE ONE (07:47)
[2016-09-28] MEDS ORDERED: THROMBIN (TOPICAL) 5,000 UNIT VIAL ONE ×2 (07:47→13:20)
[2016-09-28] MEDS ORDERED: SODIUM CHLOR 0.9% 250 ML INJ 250 ML ONE (07:47)
[2016-09-28] MEDS ORDERED: GELFOAM SIZE 100 ONE (07:47)
[2016-09-28 08:02] LABS: NEUTROPHIL # MANUAL DIFF 8.1 TH/MM3 (1.8-7.7); POLYS (SEG NEUTROPHILS) 84 % (16-70); WBC DIFF SAMPLE 100
[2016-09-28 08:03] LABS: PLATELET ESTIMATE SMEAR NORMAL (NORMAL); PLATELET MORPHOLOGY NORMAL (NORMAL); SCAN/DIFF FINAL DIFF MANUAL
[2016-09-28] MEDS: levETIRAcetam INJ 500 MG in SODIUM CHLORIDE 0.9% INJ 100 ML IV SCH ×2 (09:00→20:31)
[2016-09-28] MEDS: CARVEDILOL 3.125 MG TAB PO SCH ×2 (09:00→20:30)
[2016-09-28] MEDS ORDERED: SODIUM CHLORID 0.9% 500 ML INJ 500 ML IV ONE (09:34)
[2016-09-28] MEDS ORDERED: NEOSTIGMINE 3 MG/3 ML SYR IV ONE (09:34)
[2016-09-28] MEDS ORDERED: ONDANSETRON HCL 4 MG/2 ML VIAL IV PUSH ONE (09:34)
[2016-09-28] MEDS ORDERED: PROPOFOL 200 MG/20 ML AMP IV ONE (09:34)
[2016-09-28] MEDS ORDERED: LACTATED RINGER'S 1000 ML INJ 1,000 ML IV ONE (09:34)
[2016-09-28 09:39] LABS: INTERNATIONAL NORMALIZED RATIO 1.1 RATIO
--- NOTE | 2016-09-28 10:43 | PD.ONC.PN ---
Subjective Subjective Remarks Afebrile overnight. No overnight events. No family members at bedside. Objective Data Date Time Temp Pulse Resp B/P Pulse Ox O2 Delivery O2 Flow Rate FiO2 09/28/16 06:00 80 09/28/16 04:00 81 09/28/16 04:00 98.6 81 20 138/65 95 09/28/16 02:00 75 09/28/16 00:28 20 09/28/16 00:00 82 09/28/16 00:00 98.4 82 20 153/77 92 09/27/16 22:00 93 09/27/16 20:00 99.4 86 26 144/74 99 09/27/16 20:00 86 09/27/16 18:00 92 09/27/16 16:00 98.4 92 22 165/73 100 09/27/16 16:00 92 09/27/16 12:00 75 09/27/16 12:00 97.4 75 24 159/80 98 09/28/16 09/28/16 09/28/16 07:00 15:00 23:00 Intake Total 565 ml Output Total 1000 ml Balance -435 ml Result Diagram: 09/28/16 0410 09/28/16 0410 Laboratory Results Laboratory Tests Test 09/28/16 09/28/16 04:10 08:36 White Blood Count 9.6 TH/MM3 Red Blood Count 4.31 MIL/MM3 Hemoglobin 13.0 GM/DL Hematocrit 38.1 % Mean Corpuscular Volume 88.4 FL Mean Corpuscular Hemoglobin 30.1 PG Mean Corpuscular Hemoglobin 34.0 % Concent Red Cell Distribution Width 14.3 % Platelet Count 248 TH/MM3 Mean Platelet Volume 9.4 FL Neutrophils (%) (Auto) 82.2 % Lymphocytes (%) (Auto) 12.1 % Monocytes (%) (Auto) 5.6 % Eosinophils (%) (Auto) 0.0 % Basophils (%) (Auto) 0.1 % Neutrophils # (Auto) 7.9 TH/MM3 Lymphocytes # (Auto) 1.2 TH/MM3 Monocytes # (Auto) 0.5 TH/MM3 Eosinophils # (Auto) 0.0 TH/MM3 Basophils # (Auto) 0.0 TH/MM3 CBC Comment AUTO DIFF Differential Total Cells 100 Counted Neutrophils % (Manual) 84 % Lymphocytes % 12 % Monocytes % 4 % Neutrophils # (Manual) 8.1 TH/MM3 Differential Comment FINAL DIFF MANUAL Platelet Estimate NORMAL Platelet Morphology Comment NORMAL Red Cell Morphology Comment NORMAL Sodium Level 142 MEQ/L Potassium Level 3.5 MEQ/L Chloride Level 110 MEQ/L Carbon Dioxide Level 21.5 MEQ/L Anion Gap 11 MEQ/L Blood Urea Nitrogen 18 MG/DL Creatinine 0.56 MG/DL Estimat Glomerular Filtration 106 ML/MIN Rate Random Glucose 126 MG/DL Calcium Level 8.2 MG/DL Phosphorus Level 2.5 MG/DL Magnesium Level 2.2 MG/DL Prothrombin Time 12.0 SEC Prothromb Time International 1.1 RATIO Ratio Activated Partial 21.0 SEC Thromboplast Time Imaging Studies Last 24 hours Impressions Abdomen X-Ray 09/27/16 1500 Signed Impressions: Service Date/Time: Tuesday, September 27, 2016 15:03 - CONCLUSION: 1. There is an IVC filter present overlying the right aspect of the L2 and L3 vertebral bodies. Otherwise, no radiopaque foreign body is seen. 2. Otherwise, no acute finding is visualized. Bon Carbajal MD Administered Medications Medications (Trade) Dose Ordered Sig/Hardeep Route PRN Reason Start Time Stop Time Status Last Admin Dose Admin Insulin Aspart 1 1 Q4H SQ 09/23/16 03:00 09/27/16 19:02 Potassium Chloride 100 ml @ 50 mls/hr Q2H PRN IV For Potassium 3.3 - 3.5 mEq/L 09/23/16 03:00 09/23/16 04:26 Potassium Phosphate 30 mmol/ Sodium Chloride 260 ml @ 42 mls/hr UNSCH PRN IV SEE LABEL COMMENTS 09/23/16 03:00 09/23/16 16:38 Ceftriaxone Sodium/Sodium Chloride (Rocephin Inj/NS Inj) 100 ml @ 200 mls/hr Q24H IV 09/23/16 22:00 09/27/16 21:53 Lorazepam (Ativan Inj) 0.5 mg Q4H PRN IV PUSH ANXIETY 09/23/16 03:30 09/26/16 08:56 IV Flush (NS Flush) 2 ml BID IV FLUSH 09/23/16 09:00 09/27/16 21:52 Pantoprazole Sodium (Protonix Inj) 40 mg DAILY IV 09/23/16 09:00 09/27/16 09:25 Miscellaneous Information 1 Q361D XX 09/23/16 03:30 09/23/16 03:30 Chlorhexidine Gluconate (Chlorhexidine 2% Cloth) Taper DAILY@04 TOP 09/23/16 04:00 09/19/17 03:59 09/28/16 04:31 Dexamethasone Sodium Phosphate (Decadron Inj) 10 mg Q6HR IV PUSH 09/23/16 13:15 09/28/16 04:32 Haloperidol Lactate (Haldol Inj) 2 mg Q6H PRN IV PUSH AGITATION AND/OR HALLUCINATION 09/24/16 01:00 09/24/16 05:36 Carvedilol 3.125 mg 3.125 mg Q12HR PO 09/24/16 09:00 09/27/16 21:49 Sodium Chloride 1,000 ml @ 75 mls/hr [id number] IV 09/24/16 15:15 09/27/16 23:05 Dexmedetomidine HCl (Precedex Inj) 50 ml @ 0 mls/hr TITRATE IV 09/25/16 13:30 09/27/16 03:02 Chlorhexidine Gluconate (Hibiclens 4% Top Soln) 1 applic HS TOP 09/27/16 21:00 09/28/16 21:01 09/27/16 21:51 Senna/Docusate Sodium 1 tab 1 tab HS PO 09/27/16 21:00 09/27/16 21:49 Levetriacetam/ Sodium Chloride (Keppra Inj/NS Inj) 105 ml @ 420 mls/hr Q12HR IV 09/27/16 21:00 09/27/16 21:48 Tramadol HCl (Ultram) 50 mg Q6H PRN PO PAIN SCALE 1 TO 10 09/27/16 23:00 09/27/16 23:04 Objective Remarks GENERAL: Elderly female, upright in bed in nad. SKIN: Warm and dry. HEAD: Normocephalic. EYES: No injection or drainage. NECK: Supple, trachea midline. CARDIOVASCULAR: +S1/S2 RESPIRATORY: Breath sounds equal bilaterally. No accessory muscle use. GASTROINTESTINAL: Abdomen soft, non-tender, nondistended. EXTREMITIES: No cyanosis NEUROLOGICAL: awake. normal speech. Assessment/Plan Problem List: (1) Brain mass Status: Acute Plan: 09/28/16: biopsy of brain mass via NS today. --CT brain showed small focal hemorrhage involving right temporal lobe with prominent with vasogenic edema. Underlying neoplasm is not excluded. 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 --? plan for +biopsy vs. resection 09/28/16 by NS --CT ab/pelvis: no mets (2) Pulmonary embolism Status: Acute Plan: 09/28: s/p IVC filter placement yesterday --CTA showed PE --u/s legs: no DVT Assessment 71y/o female with pulmonary embolism, admitted with AMS. h/o atrial fibrillation Attending Statement awake and alert Eating Dinner. 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 Final path pending, The exam, history, and the medical decision-making described in the above note were completed with the assistance of the mid-level provider. I reviewed and agree with the findings presented. I attest that I had a [id number] encounter with the patient on the same day, and personally performed and documented my assessment and findings in the medical record. Jenniffer Ramirez Sep 28, 2016 10:43 Donis Tim MD Sep 28, 2016 18:35
[2016-09-28] MEDS ORDERED: MIDAZOLAM HCL 2 MG/2 ML VIAL ONE (11:12)
[2016-09-28] MEDS ORDERED: FAMOTIDINE 20 MG/2 ML VIAL ONE (11:13)
[2016-09-28] MEDS ORDERED: ARTIFICIAL TEARS OPTH OINT 3.5 APPLIC/3.5 GM TUBO ONE (11:13)
[2016-09-28] MEDS ORDERED: ACETAMINOPHEN 1000 MG/100 ML VIAL IV ONE (11:13)
[2016-09-28] MEDS ORDERED: LEVETIRACETAM 1000 MG/100 ML IV ONE (12:00)
[2016-09-28] MEDS ORDERED: levETIRAcetam 500 MG/5 ML VIAL IV ONE (12:15)
--- NOTE | 2016-09-28 13:14 | PD.OP ---
Operative Report Date of Surgery: Sep 28, 2016 Preoperative Diagnosis: Right posterior temporal enhancing mass Postoperative Diagnosis: Right posterior temporal enhancing mass Procedure: Stereotactic biopsy of right temporal mass Anesthesia: general Surgeon: Dinh Ibrahim Gear Machinist(s): sherie garza Operation and Findings: INDICATIONS FOR THE PROCEDURE Ms Bay is a 71 year-old female who presented with neurological changes of altered mental status and she was found to have a right temporal supratentorial enhancing mass. The lesion had abnormal signal intensity and and characteristics consistent with a possible neoplastic process, less likely an inflammatory, or infectious process. A stereotactic biopsy of the lesions was indicated. The [id number] details of the procedure, its indications, alternatives, risks and potential complications were fully discussed with the patient. The patient fully understood. All questions were answered. No guarantees were given. The patient voiced requesting the procedure and provided informed consents. The patient was offered the alternative of not having aggressive management. DETAILS OF THE SURGICAL PROCEDURE Preoperative planning Prior to the surgery she underwent an MRI of the brain according to the stereotactic protocol. The information from the MRI scan was transferred to the operating room via the hospital network and the preoperative planning of the lesion was made. A brianna was made at the patients operative site according to the hospital policy. Surgical positioning The patient was then brought to the operating room. After induction of general anesthesia endotracheal intubation was performed. A Armstrong catheter, bilateral KACEY hose, and sequential compression devices were placed and kept throughout the procedure. The patient was positioned supine on a 3080 table over a soft mattress. All pressure points were carefully padded with an egg crate mattress. The eyes were tapped shut after ointment was applied by the anesthesiologist to prevent corneal abrasion. A John hugger was placed over the exposed lower body to maintain control of the core body temperature. The head was held in rigid fixation using the Adkins cylinder head assembler. Intraoperative registration The rigid body was attached to the Adkins headholder. Intraoperative registration was then performed with the [facility]. The lesion was located in the three planes, sagittal, axial and coronal. An entry point was selected in the scalp. Surgical Approach and stereotactic biopsy The skin was prepped and draped in the usual sterile fashion. A linear incision in the site selected by the planning was outlined. The area was infiltrated with 1% lidocaine with epinephrine 1:100,000 dilution. A skin incision was made on the right temporal region with a #10 blade. Small subgaleal bleeders were controlled with a bipolar a small self-retaining retractor was placed in the incision. The fascia and muscle were incised with a Bovie and retracted at each side. The Midas Teddy was brought into the field and a bur hole was made with an AM-8 drill bit. The duramatter was coagulated with a bipolar and opening increased for pressure and a very small corticotomy performed. At this point of the procedure the stereotactic biopsy arm was brought into the field and secured to the cylinder head assembler. The biofuels research scientist was brought into the field, and the trajectory on the biopsy arm was created following the previously selected trajectory. Then, a stereotactic needle was carefully inserted into the brain at the center of the lesion and by gentle aspiration two initial biopsies were obtained , one of which was sent to the lab for frozen section, while the second kept for permanent histological analysis. Meanwhile, additional specimens were obtained for permanent histologic analysis. 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 The biopsy needle was carefully removed and the stereotactic device was removed. The incision was irrigated with a large amount of saline. A piece of Gelfoam was placed over the surface of the brain. The incision was closed in layers. 3-0 Vicryl with interrupted sutures were used to close the fascial layers and galea. The skin was closed with jimmie. A sterile dressing was applied. At the end of the procedure the sponge, needle and instrument counts were all correct. Estimated blood loss was minimal. No blood transfusion was given. The patient received preoperative prophylactic antibiotics. No intraoperative complications occurred. The patient was transferred to the recovery room in stable condition. Dinh Ibrahim MD Sep 28, 2016 13:14
[2016-09-28] MEDS ORDERED: DO NOT ADM ANY ANTICOAGULANT DRUGS XX PRN (13:44)
[2016-09-28] MEDS ORDERED: MORPHINE SULFATE 4 MG/ML INJ IV PUSH PRN ×2 (14:30)
[2016-09-28] MEDS ORDERED: ACETAMINOPHEN/HYDROcodone 325 MG/10 MG TAB PO PRN (14:30)
[2016-09-28] MEDS ORDERED: SODIUM CHLORIDE 0.9% FLUSH 5 ML FLUSH IVF PRN (14:30)
[2016-09-28] MEDS ORDERED: SODIUM CHLORIDE 0.9% FLUSH 5 ML FLUSH IVF SCH (14:30)
[2016-09-28] MEDS ORDERED: ONDANSETRON HCL 4 MG/2 ML VIAL IV PRN (14:30)
[2016-09-28] MEDS ORDERED: BISACODYL 10 MG SUPP PR PRN (14:30)
[2016-09-28] MEDS ORDERED: MAGNESIUM SULFATE INJ 4 GM in SODIUM CHLORIDE 0.9% INJ 100 ML IV PRN (14:30)
[2016-09-28] MEDS ORDERED: POTASSIUM CHLOR 20 MEQ PREMIX 100 ML IV PRN (14:30)
[2016-09-28] MEDS ORDERED: CALCIUM GLUCONATE 10% 1 GM/10 ML VIAL IV PRN (14:30)
[2016-09-28] MEDS: POTASSIUM CHLOR 20 MEQ PREMIX 100 ML IV PRN ×2 (15:00→18:28)
[2016-09-28] MEDS ORDERED: DOCUSATE SODIUM 100 MG CAP PO SCH (15:00)
[2016-09-28] MEDS ORDERED: NS + KCL 20 MEQ INJ 1,000 ML IV SCH (15:00)
[2016-09-28] MEDS: PANTOPRAZOLE SOD 40 MG DELAYED RELEASE TAB PO SCH (15:30)
[2016-09-28] MEDS: PANTOPRAZOLE SODIUM 40 MG VIAL IVP SCH (16:00)
--- NOTE | 2016-09-28 16:22 | HHI.HCPN ---
Reason for visit a. To assist with evaluation and management of symptoms including: anxiety/ agitation. b. To assist medical decision maker(s) with: better understanding of current medical conditions; weighing benefits/burdens of medical treatment options; making medical treatment decisions. . Subjective/Interval History Patient seen in ICU, awake and alert. Verbal and following commands. alert to self, place and situation, intermittent confusion but easily reoriented. Precedex drip discontinued. Patient pleasant and cooperative, denies any pain, n /v or abdominal discomfort. Denies shortness of breath. Patient underwent IVC filter placement yesterday without complications. She underwent today brain biopsy of right temporal mass without complications, frozen biopsy section reported as consistent with glioma. Patient remains afebrile, hypertensive with SBP in the 160's. Tolerating RA. Labs today including WBC 9.6, Hgb 13.0, plt count 248. Na 142, K 3.5, Bun/creat 18/0.56. Abdomen x-ray confirming IVC filter placement, no acute process. Spoke with [facility] Judith at bedside. Medical update provided. She has been updated by Dr. Ibrahim on plan of care. pending oncology consult for treatment plan. . Family/friend interactions See interval note. . Advance Directives Living Will: Copy in medical record Health Care Surrogate: Copy in medical record Durable Power of Trim Operator: Completed, but not made available Advance Directive Specifics Date completed: 06/29/2015. . Health Care Surrogate(s): [facility] Crystal Romo, emily Romo. . Documented care wishes: Withheld or withdrawal life prolonging measures in the event of a severe and incurable or irreversible illness, disease or condition, or end-stage condition , or persistent vegetative state. . Significant change in goals: FULL CODE. Continue treatment plan, pending oncology consultation. . Objective Vital Signs Date Time Temp Pulse Resp B/P Pulse Ox O2 Delivery O2 Flow Rate FiO2 09/28/16 13:44 98.0 75 16 161/91 93 Nasal Cannula 2 09/28/16 10:00 92 09/28/16 08:00 97.9 77 20 160/84 98 09/28/16 08:00 77 09/28/16 06:00 80 09/28/16 04:00 81 09/28/16 04:00 98.6 81 20 138/65 95 09/28/16 02:00 75 09/28/16 00:28 20 09/28/16 00:00 82 09/28/16 00:00 98.4 82 20 153/77 92 09/27/16 22:00 93 09/27/16 20:00 99.4 86 26 144/74 99 09/27/16 20:00 86 09/27/16 18:00 92 Intake & Output 09/28/16 09/28/16 07:00 19:00 Intake Total 877 ml 1100 ml Output Total 1550 ml 425 ml Balance -673 ml 675 ml IV Total 877 ml 200 ml Other 900 ml Output Urine Total 1550 ml 125 ml Other 300 ml Physical Exam CONSTITUTIONAL/GENERAL: This is an adequately nourished patient, in no apparent distress. alert and following commands. TUBES/LINES/DRAINS: PIV's, SCDs, Armstrong catheter. SKIN: No jaundice, rashes, or lesions. Ecchymoses on upper extremities. No wounds seen anteriorly. Skin temperature appropriate. Not diaphoretic. HEAD: Normocephalic. dressing covering surgical incision. EYES: Pupils equal and round and reactive. No scleral icterus. No injection or drainage. ENT: Hearing appears normal. Nose without bleeding or purulent drainage. Mouth close. NECK: Trachea midline. Supple, nontender. CARDIOVASCULAR: Regular rate and rhythm without murmurs, gallops, or rubs. No JVD. Peripheral pulses symmetric. RESPIRATORY/CHEST: Symmetric, unlabored respirations. Clear but diminished to auscultation. Breath sounds equal bilaterally. GASTROINTESTINAL: Abdomen soft, nondistended. No guarding. Bowel sounds present. GENITOURINARY: Without palpable bladder distension. Armstrong catheter in place. MUSCULOSKELETAL: Extremities without clubbing, cyanosis. +1 edema to left arm. No mottling or clubbing. NEUROLOGICAL: alert and oriented to self, place and situation. Intermittent confusion but easily reoriented. PSYCHIATRIC: calm. pleasant and cooperative. . Diagnostic Tests Laboratory Laboratory Tests Test 09/25/16 09/25/16 09/26/16 09/26/16 20:05 20:08 00:48 05:50 White Blood Count 10.2 TH/MM3 8.9 TH/MM3 (4.0-11.0) (4.0-11.0) Red Blood Count 4.07 MIL/MM3 4.06 MIL/MM3 (4.00-5.30) (4.00-5.30) Hemoglobin 12.3 GM/DL 12.2 GM/DL (11.6-15.3) (11.6-15.3) Hematocrit 35.8 % 36.0 % (35.0-46.0) (35.0-46.0) Mean Corpuscular Volume 88.1 FL 88.7 FL (80.0-100.0) (80.0-100.0) Mean Corpuscular Hemoglobin 30.2 PG 30.1 PG (27.0-34.0) (27.0-34.0) Mean Corpuscular Hemoglobin 34.3 % 34.0 % Concent (32.0-36.0) (32.0-36.0) Red Cell Distribution Width 14.5 % 14.6 % (11.6-17.2) (11.6-17.2) Platelet Count 216 TH/MM3 212 TH/MM3 (150-450) (150-450) Mean Platelet Volume 8.8 FL 9.6 FL (7.0-11.0) (7.0-11.0) Prothrombin Time 12.1 SEC (9.8-11.6) Prothromb Time International 1.1 RATIO Ratio Activated Partial 21.0 SEC 62.5 SEC 128.8 SEC Thromboplast Time (24.3-30.1) (24.3-30.1) (24.3-30.1) Neutrophils (%) (Auto) 82.2 % (16.0-70.0) Lymphocytes (%) (Auto) 11.5 % (9.0-44.0) Monocytes (%) (Auto) 6.0 % (0.0-8.0) Eosinophils (%) (Auto) 0.0 % (0.0-4.0) Basophils (%) (Auto) 0.3 % (0.0-2.0) Neutrophils # (Auto) 7.3 TH/MM3 (1.8-7.7) Lymphocytes # (Auto) 1.0 TH/MM3 (1.0-4.8) Monocytes # (Auto) 0.5 TH/MM3 (0-0.9) Eosinophils # (Auto) 0.0 TH/MM3 (0-0.4) Basophils # (Auto) 0.0 TH/MM3 (0-0.2) CBC Comment DIFF FINAL Differential Comment Sodium Level 142 MEQ/L (136-145) Potassium Level 3.7 MEQ/L (3.5-5.1) Chloride Level 110 MEQ/L (98-107) Carbon Dioxide Level 20.7 MEQ/L (21.0-32.0) Anion Gap 11 MEQ/L (5-15) Blood Urea Nitrogen 24 MG/DL (7-18) Creatinine 0.66 MG/DL (0.50-1.00) Estimat Glomerular Filtration 88 ML/MIN (>89) Rate Random Glucose 140 MG/DL (74-106) Calcium Level 8.4 MG/DL (8.5-10.1) Magnesium Level 2.6 MG/DL (1.5-2.5) Total Bilirubin 0.4 MG/DL (0.2-1.0) Aspartate Amino Transf 16 U/L (15-37) (AST/SGOT) Alanine Aminotransferase 30 U/L (10-53) (ALT/SGPT) Alkaline Phosphatase 70 U/L (45-117) Total Protein 6.2 GM/DL (6.4-8.2) Albumin 3.2 GM/DL (3.4-5.0) Test 09/26/16 09/26/16 09/27/16 09/27/16 10:07 16:30 00:52 03:25 Activated Partial 64.7 SEC 78.8 SEC 95.9 SEC 51.6 SEC Thromboplast Time (24.3-30.1) (24.3-30.1) (24.3-30.1) (24.3-30.1) White Blood Count 9.7 TH/MM3 (4.0-11.0) Red Blood Count 4.07 MIL/MM3 (4.00-5.30) Hemoglobin 12.1 GM/DL (11.6-15.3) Hematocrit 36.1 % (35.0-46.0) Mean Corpuscular Volume 88.6 FL (80.0-100.0) Mean Corpuscular Hemoglobin 29.8 PG (27.0-34.0) Mean Corpuscular Hemoglobin 33.6 % Concent (32.0-36.0) Red Cell Distribution Width 14.6 % (11.6-17.2) Platelet Count 234 TH/MM3 (150-450) Mean Platelet Volume 9.5 FL (7.0-11.0) Neutrophils (%) (Auto) 80.2 % (16.0-70.0) Lymphocytes (%) (Auto) 10.4 % (9.0-44.0) Monocytes (%) (Auto) 9.1 % (0.0-8.0) Eosinophils (%) (Auto) 0.0 % (0.0-4.0) Basophils (%) (Auto) 0.3 % (0.0-2.0) Neutrophils # (Auto) 7.8 TH/MM3 (1.8-7.7) Lymphocytes # (Auto) 1.0 TH/MM3 (1.0-4.8) Monocytes # (Auto) 0.9 TH/MM3 (0-0.9) Eosinophils # (Auto) 0.0 TH/MM3 (0-0.4) Basophils # (Auto) 0.0 TH/MM3 (0-0.2) CBC Comment DIFF FINAL Differential Comment Sodium Level 144 MEQ/L (136-145) Potassium Level 3.6 MEQ/L (3.5-5.1) Chloride Level 114 MEQ/L (98-107) Carbon Dioxide Level 19.6 MEQ/L (21.0-32.0) Anion Gap 10 MEQ/L (5-15) Blood Urea Nitrogen 24 MG/DL (7-18) Creatinine 0.70 MG/DL (0.50-1.00) Estimat Glomerular Filtration 82 ML/MIN (>89) Rate Random Glucose 130 MG/DL (74-106) Calcium Level 8.5 MG/DL (8.5-10.1) Total Bilirubin 0.6 MG/DL (0.2-1.0) Aspartate Amino Transf 19 U/L (15-37) (AST/SGOT) Alanine Aminotransferase 34 U/L (10-53) (ALT/SGPT) Alkaline Phosphatase 66 U/L (45-117) Total Protein 6.2 GM/DL (6.4-8.2) Albumin 3.3 GM/DL (3.4-5.0) Test 09/27/16 09/28/16 09/28/16 06:15 04:10 08:36 Activated Partial 53.2 SEC 21.0 SEC Thromboplast Time (24.3-30.1) (24.3-30.1) White Blood Count 9.6 TH/MM3 (4.0-11.0) Red Blood Count 4.31 MIL/MM3 (4.00-5.30) Hemoglobin 13.0 GM/DL (11.6-15.3) Hematocrit 38.1 % (35.0-46.0) Mean Corpuscular Volume 88.4 FL (80.0-100.0) Mean Corpuscular Hemoglobin 30.1 PG (27.0-34.0) Mean Corpuscular Hemoglobin 34.0 % Concent (32.0-36.0) Red Cell Distribution Width 14.3 % (11.6-17.2) Platelet Count 248 TH/MM3 (150-450) Mean Platelet Volume 9.4 FL (7.0-11.0) Neutrophils (%) (Auto) 82.2 % (16.0-70.0) Lymphocytes (%) (Auto) 12.1 % (9.0-44.0) Monocytes (%) (Auto) 5.6 % (0.0-8.0) Eosinophils (%) (Auto) 0.0 % (0.0-4.0) Basophils (%) (Auto) 0.1 % (0.0-2.0) Neutrophils # (Auto) 7.9 TH/MM3 (1.8-7.7) Lymphocytes # (Auto) 1.2 TH/MM3 (1.0-4.8) Monocytes # (Auto) 0.5 TH/MM3 (0-0.9) Eosinophils # (Auto) 0.0 TH/MM3 (0-0.4) Basophils # (Auto) 0.0 TH/MM3 (0-0.2) CBC Comment AUTO DIFF Differential Total Cells 100 Counted Neutrophils % (Manual) 84 % (16-70) Lymphocytes % 12 % (9-44) Monocytes % 4 % (0-8) Neutrophils # (Manual) 8.1 TH/MM3 (1.8-7.7) Differential Comment FINAL DIFF MANUAL Platelet Estimate NORMAL (NORMAL) Platelet Morphology Comment NORMAL (NORMAL) Red Cell Morphology Comment NORMAL (NORMAL) Sodium Level 142 MEQ/L (136-145) Potassium Level 3.5 MEQ/L (3.5-5.1) Chloride Level 110 MEQ/L (98-107) Carbon Dioxide Level 21.5 MEQ/L (21.0-32.0) Anion Gap 11 MEQ/L (5-15) Blood Urea Nitrogen 18 MG/DL (7-18) Creatinine 0.56 MG/DL (0.50-1.00) Estimat Glomerular Filtration 106 ML/MIN Rate (>89) Random Glucose 126 MG/DL (74-106) Calcium Level 8.2 MG/DL (8.5-10.1) Phosphorus Level 2.5 MG/DL (2.5-4.9) Magnesium Level 2.2 MG/DL (1.5-2.5) Prothrombin Time 12.0 SEC (9.8-11.6) Prothromb Time International 1.1 RATIO Ratio Result Diagram: 09/28/1640909/28/160 Imaging Last Impressions Abdomen X-Ray 09/27/16 1500 Signed Impressions: Service Date/Time: Tuesday, September 27, 2016 15:03 - CONCLUSION: 1. There is an IVC filter present overlying the right aspect of the L2 and L3 vertebral bodies. Otherwise, no radiopaque foreign body is seen. 2. Otherwise, no acute finding is visualized. Bon Carbajal MD IVC Filter Placement X-Ray 09/27/16 0000 Signed Impressions: Service Date/Time: Tuesday, September 27, 2016 13:13 - CONCLUSION: Uncomplicated inferior vena cava filter placement as above. This is a retrievable device and can be retrieved up to one year from its date of placement. Flynn Canales Jr., MD Head CT 09/26/16 0600 Signed Impressions: Service Date/Time: Monday, September 26, 2016 08:07 - CONCLUSION: No significant change Bon Iyer MD Chest X-Ray 09/26/16 0600 Signed Impressions: Service Date/Time: Monday, September 26, 2016 03:22 - CONCLUSION: No acute disease. Bon Garcia MD Chest CT 09/25/16 0000 Signed Impressions: Service Date/Time: Sunday, September 25, 2016 16:38 - CONCLUSION: 1. Positive for pulmonary embolic disease. 2. No evidence for metastatic disease to the thorax. Eleuterio Pyle MD Abdomen/Pelvis CT 09/25/16 0000 Signed Impressions: Service Date/Time: Sunday, September 25, 2016 16:38 - CONCLUSION: 1. Positive for pulmonary embolus right lower lobe. 2. No evidence for metastatic disease within the abdomen and pelvis. Eleuterio Pyle MD Neck Magnetic Resonance Angiography 09/24/16 0000 Signed Impressions: Service Date/Time: Saturday, September 24, 2016 14:31 - CONCLUSION: Normal examination for a patient of this age. Eleuterio Pyle MD Lower Extremity Ultrasound 09/23/16 0000 Signed Impressions: Service Date/Time: Friday, September 23, 2016 11:17 - CONCLUSION: Negative exam with no evidence of deep venous thrombosis. Alo Barton MD Head Magnetic Resonance Angiography 09/23/16 0000 Signed Impressions: Service Date/Time: Friday, September 23, 2016 09:52 - CONCLUSION: Significant intracranial atherosclerotic disease, otherwise negative. Ciaran Davis MD FACR Brain MRI 09/23/16 0000 Signed Impressions: Service Date/Time: Friday, September 23, 2016 09:52 - CONCLUSION: Abnormality in the right parietal occipital region that does show some blood clots and vasogenic edema. This probably represents an ischemic event; however, the amount of vasogenic edema is concerning. MRI with contrast would be of benefit when the patient is clinically stable. Ciaran Davis MD FACR Procedures * 09/28/16 -Brain biopsy * 09/27/16 -IVC filter placement. * 09/25/16 -Self extubation * 09/24/16 -Intubation . Assessment and Plan Disease Oriented Problem List: (1) Brain mass (2) Acute respiratory failure (3) Atrial fibrillation (4) Pulmonary embolism Symptom Scale: (1) Anxiety 0-10 Scale: Unable to quantify Comment: resolved. Precedex off. (2) Constipation 0-10 Scale: Unable to quantify Comment: Adding Senna-s Pertinent Non-Medical Issues Psychosocial: . Retired. has 3 children. Spiritual: [employer] Heritage Roman [employer]. Legal: AD completed. Pending copy from family. Ethical issues impacting care: Pending designation of health-care surrogate naming [id number] Judith as HCS. . Important Contacts Daughter Crystal Romo . . Prognosis Mrs. Bay is a 71-year-old female with a past history of atrial fibrillation not on anticoagulation and questionable schizophrenia. 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 Patient is a high risk of further decline, complications and . . Code Status: Full Code Plan * CODE STATUS: Full code * MEDICAL DECISION-MAKING: [facility] Crystal Romo, emily Romo. * GOALS OF CARE: Continue full CODE STATUS to include IVC filter and brain mass biopsy/goals of care will be readdressed once biopsy results/treatment options are discussed or in the event of an acute decline. HCS verbalized that patient' s quality of life is very important and that if any treatment options does not offer improved quality of life or the risks outweigh any benefits, family would transition patient to comfort directed care. For now, goals are aggressive. * SYMPTOMS: == Anxiety/agitation. resolved. Off Precedex drip. Lorazepam IV available as needed. management deferred to learning disabilities teacher. ==Constipation, docusate/senna at HS added yesterday. Dulcolax sup added. ==pain, acute secondary to surgical intervention. [place] and Morphine IV available as needed. * Palliative care contact information has been provided to family. * Goals of care clear at this time, Palliative care will continue to follow-up as needed. . Time Spent Total Floor Time (mins): 32 (Total time to include review of medical records, physical exam, and bedside conversation with family. ) Face to Face Time (mins): 28 >50% Counseling/Coord of Care: Yes Attestation To help prompt me to consider important information that might be impacting today's encounter and assessment, information from prior notes written by myself or my colleagues may have been "brought forward" into today's note. My signature on this note, however, is an attestation that I personally performed the exam, history, and/or decision-making noted today, and, unless otherwise indicated, the interactions with patient, family, and staff as well as the review of records all occurred today. I also attest that the listed assessment and stated plan reflect my best clinical judgment today based on the combination of historical information, prior notes, and today's exam/ interactions. When time spent is documented, it refers only to time spent today by the signer, or if indicated, combined time spent today by collaborating physician/nurse practitioner. Debbie Hooks Sep 28, 2016 16:22
[2016-09-28] MEDS: SODIUM CHLOR 0.9% 1000 ML INJ 1,000 ML IV SCH (17:00)
[2016-09-28] MEDS: ceFAZolin 2 GM PREMIX 50 ML IV SCH (17:46)
--- NOTE | 2016-09-28 18:28 | HHI.PR ---
Review/Management Diagnosis Neoplasm right temporal lobe Diagnosis/Plan: Subjective Subjective Comments s/p biopsy of right temporal lobe mass. Active Medications Current Medications Medications (Trade) Dose Ordered Sig/Hardeep Route Start Time Stop Time Status Last Admin (D50w (Vial) Inj) 25 ml UNSCH PRN IV PUSH 09/23/16 03:00 (Glucagon Inj) 1 mg UNSCH PRN OTHER 09/23/16 03:00 Insulin Aspart 1 1 Q4H SQ 09/23/16 03:00 09/27/16 19:02 Potassium Chloride 100 ml @ 50 mls/hr Q2H PRN IV 09/23/16 03:00 (KCl 20 Meq Premix Inj) 100 ml @ 50 mls/hr Q2H PRN IV 09/23/16 03:00 Potassium Chloride 40 meq 40 meq UNSCH PRN PO/TUBE 09/23/16 03:00 Potassium Chloride 100 ml @ 25 mls/hr UNSCH PRN IV 09/23/16 03:00 Potassium Chloride 100 ml @ 50 mls/hr Q2H PRN IV 09/23/16 03:00 09/28/16 15:00 (Magnesium Sulfate Inj/NS Inj) 100 ml @ 50 mls/hr UNSCH PRN IV 09/23/16 03:00 Magnesium Oxide 800 mg 800 mg UNSCH PRN PO 09/23/16 03:00 (Magnesium Sulfate Inj/NS Inj) 100 ml @ 50 mls/hr UNSCH PRN IV 09/23/16 03:00 Potassium Phosphate 2000 mg 2,000 mg Q4H PRN PO 09/23/16 03:00 (Sodium Phosphate Inj/NS 250 ml Inj) 250 ml @ 42 mls/hr UNSCH PRN IV 09/23/16 03:00 (KCl 40 Meq/30 ml Liq) 40 meq UNSCH PRN PO/TUBE 09/23/16 03:00 Potassium Phosphate 2000 mg 2,000 mg UNSCH PRN PO/TUBE 09/23/16 03:00 Potassium Phosphate 30 mmol/ Sodium Chloride 260 ml @ 42 mls/hr UNSCH PRN IV 09/23/16 03:00 09/23/16 16:38 (Rocephin Inj/NS Inj) 100 ml @ 200 mls/hr Q24H IV 09/23/16 22:00 09/27/16 21:53 (Apresoline Inj) 10 mg Q4H PRN IV PUSH 09/23/16 03:30 (Trandate Inj) 10 mg Q4H PRN IV PUSH 09/23/16 03:30 (Ativan Inj) 0.5 mg Q4H PRN IV PUSH 09/23/16 03:30 09/26/16 08:56 (NS Flush) 2 ml UNSCH PRN IV FLUSH 09/23/16 03:30 (NS Flush) 2 ml BID IV FLUSH 09/23/16 09:00 09/27/16 21:52 (Zofran Inj) 4 mg Q6H PRN IV 09/23/16 03:30 Miscellaneous Information 1 Q361D XX 09/23/16 03:30 09/23/16 03:30 (Chlorhexidine 2% Cloth) Taper DAILY@04 TOP 09/23/16 04:00 09/19/17 03:59 09/28/16 04:31 (Chlorhexidine 2% Cloth) 3 pack UNSCH PRN TOP 09/23/16 03:30 (Decadron Inj) 10 mg Q6HR IV PUSH 09/23/16 13:15 09/28/16 17:46 (Haldol Inj) 2 mg Q6H PRN IV PUSH 09/24/16 01:00 09/24/16 05:36 Carvedilol 3.125 mg 3.125 mg Q12HR PO 09/24/16 09:00 09/27/16 21:49 Sodium Chloride 1,000 ml @ 75 mls/hr [id number] IV 09/24/16 15:15 09/27/16 23:05 (Precedex Inj) 50 ml @ 0 mls/hr TITRATE IV 09/25/16 13:30 09/27/16 03:02 (Hibiclens 4% Top Soln) 1 applic HS TOP 09/27/16 21:00 09/28/16 21:01 09/27/16 21:51 (Yocasta-Colace) 1 tab HS PO 09/27/16 21:00 09/27/16 21:49 Miscellaneous Information ALL NURSING DEPARTME... UNSCH PRN XX 09/28/16 13:44 09/29/16 13:43 Cefazolin Sodium/ Dextrose 50 ml @ 100 mls/hr Q8H IV 09/28/16 18:00 2/23/17 10:29 09/28/16 17:46 (Keppra Inj/NS Inj) 105 ml @ 400 mls/hr Q12H IV 09/28/16 21:00 (Dulcolax Supp) 10 mg DAILY PRN NC 09/28/16 14:30 (Protonix) 40 mg DAILY PO 09/28/16 15:30 (Protonix Inj) 40 mg DAILY IVP 09/28/16 15:30 09/28/16 16:00 Calcium Gluconate 1 gm 1 gm UNSCH PRN IV 09/28/16 14:30 (Magnesium Sulfate Inj/NS Inj) 108 ml @ 108 mls/hr UNSCH PRN IV 09/28/16 14:30 ([place] 10-325 Mg) 1 tab Q4H PRN PO 09/28/16 14:30 ([place] 10-325 Mg) 2 tab Q4H PRN PO 09/28/16 14:30 (Morphine Inj) 2 mg Q2H PRN IV PUSH 09/28/16 14:30 (Morphine Inj) 4 mg Q2H PRN IV PUSH 09/28/16 14:30 (Tylenol) 650 mg Q4H PRN PO 09/28/16 14:30 Allergies Allergies Coded Allergies Codeine (Verified Allergy, Severe, nausea/vomiting/itching/sweating, 09/28/16) Exam I&O / VS 09/27/16 09/27/16 09/28/16 15:00 23:00 07:00 Intake Total 517 ml 312 ml 565 ml Output Total 625 ml 550 ml 1000 ml Balance -108 ml -238 ml -435 ml Intake Oral 180 ml IV Total 337 ml 312 ml 565 ml Output Urine Total 625 ml 550 ml 1000 ml # Bowel Movements 0 Vital Signs Date Time Temp Pulse Resp B/P Pulse Ox O2 Delivery O2 Flow Rate FiO2 09/28/16 16:00 97.9 73 16 158/79 95 Arterial Line 09/28/16 16:00 73 09/28/16 15:15 98.2 70 16 154/86 94 Nasal Cannula 2 09/28/16 15:00 69 16 153/91 95 Nasal Cannula 2 156/76 09/28/16 14:45 68 16 147/90 95 Nasal Cannula 2 153/74 09/28/16 14:30 69 16 96 Nasal Cannula 2 151/86 2/22/17 14:15 69 16 155/90 95 Nasal Cannula 2 160/78 09/28/16 14:00 73 16 160/78 97 Nasal Cannula 2 163/78 09/28/16 13:44 98.0 75 16 161/91 93 Nasal Cannula 2 09/28/16 10:00 92 09/28/16 08:00 97.9 77 20 160/84 98 09/28/16 08:00 77 09/28/16 06:00 80 09/28/16 04:00 81 09/28/16 04:00 98.6 81 20 138/65 95 09/28/16 02:00 75 09/28/16 00:28 20 09/28/16 00:00 82 09/28/16 00:00 98.4 82 20 153/77 92 09/27/16 22:00 93 09/27/16 20:00 99.4 86 26 144/74 99 09/27/16 20:00 86 Exam Comments alert, Follows commands. CN 2-12 normal Motor 5/5 BUE and BLE Objective Micro and Labs Laboratory Tests Test 09/28/16 09/28/16 04:10 08:36 White Blood Count 9.6 Red Blood Count 4.31 Hemoglobin 13.0 Hematocrit 38.1 Mean Corpuscular Volume 88.4 Mean Corpuscular Hemoglobin 30.1 Mean Corpuscular Hemoglobin 34.0 Concent Red Cell Distribution Width 14.3 Platelet Count 248 Mean Platelet Volume 9.4 Neutrophils (%) (Auto) 82.2 Lymphocytes (%) (Auto) 12.1 Monocytes (%) (Auto) 5.6 Eosinophils (%) (Auto) 0.0 Basophils (%) (Auto) 0.1 Neutrophils # (Auto) 7.9 Lymphocytes # (Auto) 1.2 Monocytes # (Auto) 0.5 Eosinophils # (Auto) 0.0 Basophils # (Auto) 0.0 CBC Comment AUTO DIFF Differential Total Cells 100 Counted Neutrophils % (Manual) 84 Lymphocytes % 12 Monocytes % 4 Neutrophils # (Manual) 8.1 Differential Comment FINAL DIFF MANUAL Platelet Estimate NORMAL Platelet Morphology Comment NORMAL Red Cell Morphology Comment NORMAL Sodium Level 142 Potassium Level 3.5 Chloride Level 110 Carbon Dioxide Level 21.5 Anion Gap 11 Blood Urea Nitrogen 18 Creatinine 0.56 Estimat Glomerular Filtration 106 Rate Random Glucose 126 Calcium Level 8.2 Phosphorus Level 2.5 Magnesium Level 2.2 Prothrombin Time 12.0 Prothromb Time International 1.1 Ratio Activated Partial 21.0 Thromboplast Time Jerman Chung PhD Sep 28, 2016 18:28
[2016-09-28] MEDS: DOCUSATE SODIUM 50 MG/SENNA 8.6 MG TAB PO SCH (20:30)
[2016-09-28] MEDS: CHLORHEXIDINE GLUCONATE 4% SOLN 120 ML BTL TOP SCH (20:31)
[2016-09-28] MEDS: SODIUM CHLORIDE 0.9% FLUSH 5 ML FLUSH IV FLUSH SCH (21:29)
[2016-09-28] MEDS: cefTRIAXone INJ 1,000 MG in SODIUM CHLORIDE 0.9% INJ 100 ML IV SCH (21:30)
[2016-09-29] VITALS (14 sets, daily range): BP systolic 130–155; BP diastolic 69–88; PULSE 68–89; RESP 15–20; TEMP 97.4–99; O2SAT 92–98
[2016-09-29] MEDS: DEXAMETHASONE SOD PHOS 4 MG/ML VIAL IV PUSH SCH ×5 (00:21→23:26)
[2016-09-29] MEDS: ACETAMINOPHEN/HYDROcodone 325 MG/10 MG TAB PO PRN ×2 (00:21→23:27)
[2016-09-29] MEDS: SODIUM CHLOR 0.9% 1000 ML INJ 1,000 ML IV SCH ×2 (01:55→14:47)
[2016-09-29] MEDS: ceFAZolin 2 GM PREMIX 50 ML IV SCH ×2 (02:25→10:23)
[2016-09-29] MEDS: CHLORHEXIDINE GLUCONATE 2 % 1 PACK (2 CLOTHS) TOP SCH ×2 (03:55→21:58)
[2016-09-29] MEDS: INSULIN ASPART SUPPLEMENTAL SCALE SQ SCH ×6 (03:57→23:00)
[2016-09-29 04:53] LABS: BICARBONATE 19.9 MEQ/L (21.0-32.0); POTASSIUM 4.3 MEQ/L (3.5-5.1)
[2016-09-29] MEDS: PANTOPRAZOLE SODIUM 40 MG VIAL IVP SCH (09:00)
[2016-09-29] MEDS: CARVEDILOL 3.125 MG TAB PO SCH (10:22)
[2016-09-29] MEDS: PANTOPRAZOLE SOD 40 MG DELAYED RELEASE TAB PO SCH (10:22)
[2016-09-29] MEDS: levETIRAcetam INJ 500 MG in SODIUM CHLORIDE 0.9% INJ 100 ML IV SCH ×2 (10:23→20:32)
[2016-09-29] MEDS: SODIUM CHLORIDE 0.9% FLUSH 5 ML FLUSH IV FLUSH SCH ×2 (10:24→20:33)
--- NOTE | 2016-09-29 11:22 | PD.ONC.PN ---
Subjective Subjective Remarks Afebrile overnight. patient just finished eating breakfast. She denies pain. Objective Data Date Time Temp Pulse Resp B/P Pulse Ox O2 Delivery O2 Flow Rate FiO2 09/29/16 06:00 69 09/29/16 04:00 75 09/29/16 04:00 97.8 75 20 151/82 94 09/29/16 02:00 68 09/29/16 00:00 98.3 77 20 142/69 97 09/29/16 00:00 77 09/28/16 22:00 69 09/28/16 20:00 83 09/28/16 20:00 97.9 87 22 161/80 99 09/28/16 16:00 97.9 73 16 158/79 95 Arterial Line 09/28/16 16:00 73 09/28/16 15:15 98.2 70 16 154/86 94 Nasal Cannula 2 09/28/16 15:00 69 16 153/91 95 Nasal Cannula 2 156/76 09/28/16 14:45 68 16 147/90 95 Nasal Cannula 2 153/74 09/28/16 14:30 69 16 96 Nasal Cannula 2 151/86 09/28/16 14:15 69 16 155/90 95 Nasal Cannula 2 160/78 09/28/16 14:00 73 16 160/78 97 Nasal Cannula 2 163/78 09/28/16 13:44 98.0 75 16 161/91 93 Nasal Cannula 2 09/29/16 09/29/16 09/29/16 07:00 15:00 23:00 Intake Total 940 ml Output Total 600 ml Balance 340 ml Result Diagram: 09/28/16 0410 09/29/16 0416 Laboratory Results Laboratory Tests Test 09/29/16 04:16 Sodium Level 138 MEQ/L Potassium Level 4.3 MEQ/L Chloride Level 111 MEQ/L Carbon Dioxide Level 19.9 MEQ/L Anion Gap 7 MEQ/L Blood Urea Nitrogen 15 MG/DL Creatinine 0.61 MG/DL Estimat Glomerular Filtration 96 ML/MIN Rate Random Glucose 136 MG/DL Calcium Level 8.1 MG/DL Administered Medications Medications (Trade) Dose Ordered Sig/Hardeep Route PRN Reason Start Time Stop Time Status Last Admin Dose Admin Insulin Aspart 1 1 Q4H SQ 09/23/16 03:00 09/29/16 10:41 Potassium Chloride 100 ml @ 50 mls/hr Q2H PRN IV For Potassium 3.3 - 3.5 mEq/L 09/23/16 03:00 09/28/16 18:28 Potassium Phosphate 30 mmol/ Sodium Chloride 260 ml @ 42 mls/hr UNSCH PRN IV SEE LABEL COMMENTS 09/23/16 03:00 09/23/16 16:38 Ceftriaxone Sodium/Sodium Chloride (Rocephin Inj/NS Inj) 100 ml @ 200 mls/hr Q24H IV 09/23/16 22:00 09/28/16 21:30 Lorazepam (Ativan Inj) 0.5 mg Q4H PRN IV PUSH ANXIETY 09/23/16 03:30 09/26/16 08:56 IV Flush (NS Flush) 2 ml BID IV FLUSH 09/23/16 09:00 09/29/16 10:24 Miscellaneous Information 1 Q361D XX 09/23/16 03:30 09/23/16 03:30 Chlorhexidine Gluconate (Chlorhexidine 2% Cloth) Taper DAILY@04 TOP 09/23/16 04:00 09/19/17 03:59 09/28/16 04:31 Dexamethasone Sodium Phosphate (Decadron Inj) 10 mg Q6HR IV PUSH 09/23/16 13:15 09/29/16 05:39 Haloperidol Lactate (Haldol Inj) 2 mg Q6H PRN IV PUSH AGITATION AND/OR HALLUCINATION 09/24/16 01:00 09/24/16 05:36 Carvedilol 3.125 mg 3.125 mg Q12HR PO 09/24/16 09:00 09/29/16 10:22 Sodium Chloride 1,000 ml @ 75 mls/hr [id number] IV 09/24/16 15:15 09/29/16 01:55 Dexmedetomidine HCl (Precedex Inj) 50 ml @ 0 mls/hr TITRATE IV 09/25/16 13:30 09/27/16 03:02 Senna/Docusate Sodium 1 tab 1 tab HS PO 09/27/16 21:00 09/28/16 20:30 Levetriacetam/ Sodium Chloride (Keppra Inj/NS Inj) 105 ml @ 400 mls/hr Q12H IV 09/28/16 21:00 09/29/16 10:23 Pantoprazole Sodium (Protonix) 40 mg DAILY PO 09/28/16 15:30 09/29/16 10:22 Pantoprazole Sodium (Protonix Inj) 40 mg DAILY IVP 09/28/16 15:30 09/28/16 16:00 Acetaminophen/ Hydrocodone Bitart ([place] 10-325 Mg) 2 tab Q4H PRN PO PAIN SCALE 6 TO 10 09/28/16 14:30 09/29/16 00:21 Objective Remarks GENERAL: Elderly female, sitting in ISC chair eating breakfast. SKIN: Warm and dry. HEAD: Normocephalic. surgical wound right scalp is clean. EYES: No injection or drainage. NECK: Supple, trachea midline. CARDIOVASCULAR: +S1/S2 RESPIRATORY: Breath sounds equal bilaterally. No accessory muscle use. GASTROINTESTINAL: Abdomen soft, non-tender, nondistended. EXTREMITIES: No cyanosis NEUROLOGICAL: awake and alert. oriented x 3 today. normal speech. 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 --CT brain showed small focal hemorrhage involving right temporal lobe with prominent with vasogenic edema. Underlying neoplasm is not excluded. 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 --? plan for +biopsy vs. resection 09/28/16 by NS --CT ab/pelvis: no mets (2) Pulmonary embolism Status: Acute Plan: s/p IVC filter placement on 09/27 --CTA showed PE --u/s legs: no DVT Assessment 71y/o female with pulmonary embolism, admitted with AMS. h/o atrial fibrillation Attending Statement eating well. Awake and alert Path is pending XRT consult pending. If GBM then will treat with combined XRT and Temodar chemo. will follow. Jenniffer Ramirez Sep 29, 2016 11:22 Donis Tim MD Sep 29, 2016 20:51
--- NOTE | 2016-09-29 11:24 | HHI.NSPN ---
(Joanne Mariano) Note Status Status: Progress Note (Joanne Mariano) Interval History Interval History Ms. Bay is a 71 year old female who presented to [facility] with acute delirium. She had reported peopler were coming to her house, she was having panic attacks. She was brought to [facility] by her family member. A CT Brain showed a small focal hemorrhage in right temporal lobe with large amount of vasogenic edema. No known history of brain masses or tumors. She also reports of recently having headaches, as well as some weakness on the left side. 09/24/16: Came to evaluate pt but off the floor for MRI for prolonged period of time. Called MRI and pt pulled out IV and is agitated and tech states she may need to be sedated and intubated for MRI as she is not going to hold still and lost IV access for contrast MRI. 09/25/16: Pt sedated on Diprivan and Fentanyl drips. Intubated. Opens eyes when stimulated. Follows simple commands. 09/26/16: MRI Brain w/contrast shows underlying mass. She also now with DVT/PE on heparin drip. Currently on soft restraints. Oriented, and follows simple commands. No family at bedside. 09/27: drowsy on precedex due to agitation. we had discussed with her daughter who is POA over the phone, she is requesting for a needle bx. 09/29: POD 1 s/p needle biopsy of brain lesion, frz section reveals glioma. Currently awake, eating her breakfast. (Joanne Mariano) Labs, Micro, & Vital Signs Results Date Time Temp Pulse Resp B/P Pulse Ox O2 Delivery O2 Flow Rate FiO2 09/29/16 06:00 69 09/29/16 04:00 75 09/29/16 04:00 97.8 75 20 151/82 94 09/29/16 02:00 68 09/29/16 00:00 98.3 77 20 142/69 97 09/29/16 00:00 77 09/28/16 22:00 69 09/28/16 20:00 83 09/28/16 20:00 97.9 87 22 161/80 99 09/28/16 16:00 97.9 73 16 158/79 95 Arterial Line 09/28/16 16:00 73 09/28/16 15:15 98.2 70 16 154/86 94 Nasal Cannula 2 09/28/16 15:00 69 16 153/91 95 Nasal Cannula 2 156/76 09/28/16 14:45 68 16 147/90 95 Nasal Cannula 2 153/74 09/28/16 14:30 69 16 96 Nasal Cannula 2 151/86 09/28/16 14:15 69 16 155/90 95 Nasal Cannula 2 160/78 09/28/16 14:00 73 16 160/78 97 Nasal Cannula 2 163/78 09/28/16 13:44 98.0 75 16 161/91 93 Nasal Cannula 2 09/29/16 07:00 Intake Total 3250 ml Output Total 2225 ml Balance 1025 ml Constitutional Vital Signs Date Time Temp Pulse Resp B/P Pulse Ox O2 Delivery O2 Flow Rate FiO2 09/29/16 06:00 69 09/29/16 04:00 75 09/29/16 04:00 97.8 75 20 151/82 94 09/29/16 02:00 68 09/29/16 00:00 98.3 77 20 142/69 97 09/29/16 00:00 77 09/28/16 22:00 69 09/28/16 20:00 83 09/28/16 20:00 97.9 87 22 161/80 99 09/28/16 16:00 97.9 73 16 158/79 95 Arterial Line 09/28/16 16:00 73 09/28/16 15:15 98.2 70 16 154/86 94 Nasal Cannula 2 09/28/16 15:00 69 16 153/91 95 Nasal Cannula 2 156/76 09/28/16 14:45 68 16 147/90 95 Nasal Cannula 2 153/74 09/28/16 14:30 69 16 96 Nasal Cannula 2 151/86 09/28/16 14:15 69 16 155/90 95 Nasal Cannula 2 160/78 09/28/16 14:00 73 16 160/78 97 Nasal Cannula 2 163/78 09/28/16 13:44 98.0 75 16 161/91 93 Nasal Cannula 2 09/29/16 07:00 Intake Total 3250 ml Output Total 2225 ml Balance 1025 ml (Joanne Mariano) Review of Systems/Exam Exam Awake, oriented to name and place. Feeding herself breakfast. Wound clean. CN: Pupils 4 mm equal, EOMs grossly intact. Facial appear grossly symmetric at rest Neck: soft, supple Motor: moves all four extremities well Heart: NSR no murmurs Abdomen: Soft Plantars downgoing b/l (Joanne Mariano) Medications Current Medications Current Medications Medications (Trade) Dose Ordered Sig/Hardeep Route PRN Reason Start Time Stop Time Status Last Admin Dose Admin Dextrose (D50w (Vial) Inj) 25 ml UNSCH PRN IV PUSH HYPOGLYCEMIA-SEE COMMENTS 09/23/16 03:00 Glucagon (Glucagon Inj) 1 mg UNSCH PRN OTHER HYPOGLYCEMIA-SEE COMMENTS 09/23/16 03:00 Insulin Aspart 1 1 Q4H SQ 09/23/16 03:00 09/29/16 10:41 Potassium Chloride 100 ml @ 50 mls/hr Q2H PRN IV For Potassium 2.8 - 3.2 mEq/L 09/23/16 03:00 Potassium Chloride (KCl 20 Meq Premix Inj) 100 ml @ 50 mls/hr Q2H PRN IV For Potassium 2.8 - 3.2 mEq/L 09/23/16 03:00 Potassium Chloride 40 meq 40 meq UNSCH PRN PO/TUBE For Potassium 3.3 - 3.5 mEq/L 09/23/16 03:00 Potassium Chloride 100 ml @ 25 mls/hr UNSCH PRN IV For Potassium 3.3 - 3.5 mEq/L 09/23/16 03:00 Potassium Chloride 100 ml @ 50 mls/hr Q2H PRN IV For Potassium 3.3 - 3.5 mEq/L 09/23/16 03:00 09/28/16 18:28 Magnesium Sulfate/ Sodium Chloride (Magnesium Sulfate Inj/NS Inj) 100 ml @ 50 mls/hr UNSCH PRN IV For Magnesium 0.9 - 1.1 mg/dL 09/23/16 03:00 Magnesium Oxide 800 mg 800 mg UNSCH PRN PO For Magnesium 1.2 - 1.6 mg/dL 09/23/16 03:00 Magnesium Sulfate/ Sodium Chloride (Magnesium Sulfate Inj/NS Inj) 100 ml @ 50 mls/hr UNSCH PRN IV For Magnesium 1.2 - 1.6 mg/dL 09/23/16 03:00 Potassium Phosphate 2000 mg 2,000 mg Q4H PRN PO For Phosphorus < 2.5 mg/dL 09/23/16 03:00 Sodium Phosphate/ Sodium Chloride (Sodium Phosphate Inj/NS 250 ml Inj) 250 ml @ 42 mls/hr UNSCH PRN IV For Phosphorus < 2.5 mg/dL 09/23/16 03:00 Potassium Chloride (KCl 40 Meq/30 ml Liq) 40 meq UNSCH PRN PO/TUBE SEE LABEL COMMENTS 09/23/16 03:00 Potassium Phosphate 2000 mg 2,000 mg UNSCH PRN PO/TUBE SEE LABEL COMMENTS 09/23/16 03:00 Potassium Phosphate 30 mmol/ Sodium Chloride 260 ml @ 42 mls/hr UNSCH PRN IV SEE LABEL COMMENTS 09/23/16 03:00 09/23/16 16:38 Ceftriaxone Sodium/Sodium Chloride (Rocephin Inj/NS Inj) 100 ml @ 200 mls/hr Q24H IV 09/23/16 22:00 09/28/16 21:30 Hydralazine HCl (Apresoline Inj) 10 mg Q4H PRN IV PUSH SBP >160 09/23/16 03:30 Labetalol HCl (Trandate Inj) 10 mg Q4H PRN IV PUSH SBP >160 09/23/16 03:30 Lorazepam (Ativan Inj) 0.5 mg Q4H PRN IV PUSH ANXIETY 09/23/16 03:30 09/26/16 08:56 IV Flush (NS Flush) 2 ml UNSCH PRN IV FLUSH FLUSH AFTER USING IV ACCESS 09/23/16 03:30 IV Flush (NS Flush) 2 ml BID IV FLUSH 09/23/16 09:00 09/29/16 10:24 Ondansetron HCl (Zofran Inj) 4 mg Q6H PRN IV NAUSEA OR VOMITING 09/23/16 03:30 Miscellaneous Information 1 Q361D XX 09/23/16 03:30 09/23/16 03:30 Chlorhexidine Gluconate (Chlorhexidine 2% Cloth) Taper DAILY@04 TOP 09/23/16 04:00 09/19/17 03:59 09/28/16 04:31 Chlorhexidine Gluconate (Chlorhexidine 2% Cloth) 3 pack UNSCH PRN [facility] 09/23/16 03:30 Dexamethasone Sodium Phosphate (Decadron Inj) 10 mg Q6HR IV PUSH 09/23/16 13:15 09/29/16 05:39 Haloperidol Lactate (Haldol Inj) 2 mg Q6H PRN IV PUSH AGITATION AND/OR HALLUCINATION 09/24/16 01:00 09/24/16 05:36 Carvedilol 3.125 mg 3.125 mg Q12HR PO 09/24/16 09:00 09/29/16 10:22 Sodium Chloride 1,000 ml @ 75 mls/hr [id number] IV 09/24/16 15:15 09/29/16 01:55 Dexmedetomidine HCl (Precedex Inj) 50 ml @ 0 mls/hr TITRATE IV 09/25/16 13:30 09/27/16 03:02 Senna/Docusate Sodium (Yocasta-Colace) 1 tab HS PO 09/27/16 21:00 09/28/16 20:30 Miscellaneous Information ALL NURSING DEPARTME... UNSCH PRN XX SEE LABEL COMMENTS 09/28/16 13:44 09/29/16 13:43 Levetriacetam/ Sodium Chloride (Keppra Inj/NS Inj) 105 ml @ 400 mls/hr Q12H IV 09/28/16 21:00 09/29/16 10:23 Bisacodyl (Dulcolax Supp) 10 mg DAILY PRN [place] CONSTIPATION 09/28/16 14:30 Pantoprazole Sodium (Protonix) 40 mg DAILY PO 09/28/16 15:30 09/29/16 10:22 Pantoprazole Sodium (Protonix Inj) 40 mg DAILY IVP 09/28/16 15:30 09/28/16 16:00 Calcium Gluconate 1 gm 1 gm UNSCH PRN IV SEE LABEL COMMENTS 09/28/16 14:30 Magnesium Sulfate/ Sodium Chloride (Magnesium Sulfate Inj/NS Inj) 108 ml @ 108 mls/hr UNSCH PRN IV MAGNESIUM LESS THAN 2 09/28/16 14:30 Acetaminophen/ Hydrocodone Bitart ([place] 10-325 Mg) 1 tab Q4H PRN PO PAIN SCALE 1 TO 5 09/28/16 14:30 Acetaminophen/ Hydrocodone Bitart ([place] 10-325 Mg) 2 tab Q4H PRN PO PAIN SCALE 6 TO 10 09/28/16 14:30 09/29/16 00:21 Morphine Sulfate (Morphine Inj) 2 mg Q2H PRN IV PUSH PAIN SCALE 1 TO 6 09/28/16 14:30 Morphine Sulfate (Morphine Inj) 4 mg Q2H PRN IV PUSH PAIN SCALE 7 TO 10 09/28/16 14:30 Acetaminophen (Tylenol) 650 mg Q4H PRN PO TEMPERATURE > 101.5 F 09/28/16 14:30 (Joanne Mariano) Medical Decision Making MDM Remarks 71 y/o female brought by her family due to delirium and anxiety MRI Brain shows right temporal lobe mass, s/p needle biopsy of brain mass, 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 I reviewed and agree with the findings presented. I attest that I had a [id number] encounter with the patient on the same day, and personally performed and documented my assessment and findings in the medical record. (Dinh Ibrahim MD) Joanne Mariano Sep 29, 2016 11:24 Dinh Ibrahim MD Oct 01, 2016 18:21
[2016-09-29 12:18] LABS: AUTOMATED NEUTROPHIL # 11.9 TH/MM3 (1.8-7.7); BASOPHIL % 0.2 % (0.0-2.0); EOSINOPHIL # 0.1 TH/MM3 (0-0.4); EOSINOPHIL % 0.4 % (0.0-4.0); LYMPH % 8.5 % (9.0-44.0); LYMPHOCYTE # 1.3 TH/MM3 (1.0-4.8); MEAN CELL VOLUME 89.3 FL (80.0-100.0); MEAN CORPUSCULAR HEMOGLOBIN 29.7 PG (27.0-34.0); MEAN CORPUSCULAR HGB CONC 33.3 % (32.0-36.0); MONO % 10.5 % (0.0-8.0); NEUT % 80.4 % (16.0-70.0); PLATELET COUNT 224 TH/MM3 (150-450); RED BLOOD COUNT 4.81 MIL/MM3 (4.00-5.30); RED CELL DISTRIBUTION WIDTH 14.1 % (11.6-17.2); WHITE BLOOD COUNT 14.8 TH/MM3 (4.0-11.0)
[2016-09-29 12:19] LABS: HEMO FLAGS AUTO DIFF
[2016-09-29 12:56] LABS: PLATELET ESTIMATE SMEAR NORMAL (NORMAL); PLATELET MORPHOLOGY NORMAL (NORMAL); SCAN/DIFF AUTO DIFF CONFIRMED
[2016-09-29] MEDS: hydrALAZINE HCL 20 MG/ML VIAL IV PUSH PRN ×2 (15:11→23:26)
[2016-09-29] MEDS ORDERED: CALCIUM CARBONATE 500 MG CHEWABLE TAB CHEW ONE (15:15)
--- NOTE | 2016-09-29 15:26 | HHI.CCPN ---
Subjective Remarks/Hospital Course 71-year-old female who reportedly was diagnosed with schizophrenia but who does not take any medications chronically presented to [facility] with one week history of paranoia and hallucinations. She said she believed people were coming into her house uninvited. She drove to her ex-daughter in-laws house and this woman's new was there and tried to redirect her as she reportedly has a h/o intermittent paranoid delusions. He took her back to her home yesterday but she was having intermittent episodes of panic so she was brought in for psychiatry evaluation. While doing psychiatric clearance, ED EXCHANGE UNDERWRITING CONSULTANT and physician discovered that she had elevated troponin of 1.4 with normal CKMB fraction. Creatinine is normal at 0.63. Case was discussed with cardiology who recommended medical management including heparin. Before initiation of heparin, CT brain was obtained. This demonstrated small focal hemorrhage in right temporal lobe with large amount of vasogenic edema (without shift). Patient states she has had a bifrontal headache for about a week. No n/v/ seizures. She does state that she falls frequently (2-3 times in last 2 months) but denies head trauma. She states she has noticed some left leg weakness for about a week and she states she fell in [facility] about a week ago due to leg weakness. She has noticed some decreased sensation on the left leg as well. She denies any changes in vision or speech. She does have dysarthric speech, but she states this is chronic. She states she has been having intermittent "panic attacks" with episodes of SOB and discomfort in her chest. She states this improves when her family tries to calm her down. She denies exertional CP/ SOB or hemoptysis. She has noticed BLE pedal edema ~ 1 week. She denies prior h/ o stroke. States she saw Dr. Antonio with neurology in the past. She has atrial fibrillation but denies having been on anticoagulation 09/24 Patient was given Ativan/Haldol overnight for agitation and confusion. MRI brain wo contrast yesterday showed abnormality in the right parietal occipital region that does show some blood clots and vasogenic edema. For MRI brain with contrast and EEG today. 09/25: While sedation was held patient self extubated. Patient more awake today following commands. 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 Mar, radiologist) 09/26 No acute events overnight. On Precedex drip for agitation and heparin drip for PE. Afebrile. 09/27 Patient is more awake and alert on Precedex and heparin drips. Afebrile 09/28 No acute events overnight. Off Precedex and heparin drips. s/p IVC filter placeemnt yesterday. For brain biopsy and possible craniotomy today. 09/29: no acute events overnight. doing well s/p trey hole biopsy. tolerating diet. no complaints. Objective Vital Signs Date Time Temp Pulse Resp B/P Pulse Ox O2 Delivery O2 Flow Rate FiO2 09/29/16 14:00 74 09/29/16 12:00 97.6 15 149/74 97 09/28/16 15:15 Nasal Cannula 2 09/25/16 21:09 21 Intake and Output 09/28/16 09/28/16 09/29/16 08:00 16:00 00:00 Intake Total 565 ml 1100 ml 1210 ml Output Total 1000 ml 425 ml 1200 ml Balance -435 ml 675 ml 10 ml Result Diagram: 09/29/16 1145 09/29/16 0416 Imaging Last Impressions Abdomen X-Ray 09/27/16 1500 Signed Impressions: Service Date/Time: Tuesday, September 27, 2016 15:03 - CONCLUSION: 1. There is an IVC filter present overlying the right aspect of the L2 and L3 vertebral bodies. Otherwise, no radiopaque foreign body is seen. 2. Otherwise, no acute finding is visualized. Bon Carbajal MD IVC Filter Placement X-Ray 09/27/16 0000 Signed Impressions: Service Date/Time: Tuesday, September 27, 2016 13:13 - CONCLUSION: Uncomplicated inferior vena cava filter placement as above. This is a retrievable device and can be retrieved up to one year from its date of placement. Flynn Canales Jr., MD Head CT 09/26/16 0600 Signed Impressions: Service Date/Time: Monday, September 26, 2016 08:07 - CONCLUSION: No significant change Bon Iyer MD Chest X-Ray 09/26/16 0600 Signed Impressions: Service Date/Time: Monday, September 26, 2016 03:22 - CONCLUSION: No acute disease. Bon Garcia MD Chest CT 09/25/16 Signed Impressions: Service Date/Time: Sunday, September 25, 2016 16:38 - CONCLUSION: 1. Positive for pulmonary embolic disease. 2. No evidence for metastatic disease to the thorax. Eleuterio Pyle MD Abdomen/Pelvis CT 09/25/16 Signed Impressions: Service Date/Time: Sunday, September 25, 2016 16:38 - CONCLUSION: 1. Positive for pulmonary embolus right lower lobe. 2. No evidence for metastatic disease within the abdomen and pelvis. Eleuterio Pyle MD Neck Magnetic Resonance Angiography 09/24/16 Signed Impressions: Service Date/Time: Saturday, September 24, 2016 14:31 - CONCLUSION: Normal examination for a patient of this age. Eleuterio Pyle MD Lower Extremity Ultrasound 09/23/16 Signed Impressions: Service Date/Time: Friday, September 23, 2016 11:17 - CONCLUSION: Negative exam with no evidence of deep venous thrombosis. Alo Barton MD Head Magnetic Resonance Angiography 09/23/16 Signed Impressions: Service Date/Time: Friday, September 23, 2016 09:52 - CONCLUSION: Significant intracranial atherosclerotic disease, otherwise negative. Ciaran Davis MD FACR Brain MRI 09/23/16 Signed Impressions: Service Date/Time: Friday, September 23, 2016 09:52 - CONCLUSION: Abnormality in the right parietal occipital region that does show some blood clots and vasogenic edema. This probably represents an ischemic event; however, the amount of vasogenic edema is concerning. MRI with contrast would be of benefit when the patient is clinically stable. Ciaran Davis MD FACR Objective Remarks GENERAL: Patient is 71 yo sitting in bed in no acute resp distress SKIN: Warm and dry. HEAD: Normocephalic. EYES: No scleral icterus. No injection or drainage. NECK: Supple, trachea midline. No JVD or lymphadenopathy. CARDIOVASCULAR: Regular rate and rhythm without murmurs, gallops, or rubs. RESPIRATORY: Breath sounds equal bilaterally. No accessory muscle use. GASTROINTESTINAL: Abdomen soft, non-tender, nondistended. MUSCULOSKELETAL: No cyanosis, or edema. Neuro: Awake and alert A/P Assessment and Plan Assessment: 71yF POD 1 s/p trey hole biopsy of brain mass. doing well. stable for transfer to floor. NEURO: Acute R temporal lobe hemorrhage with edema. Right occipitotemporal mass 5x 3 cm on MRI Schizophrenia Anxiety Off Precedex drip, monitor neuro status MRI with contrast 09/24/16 shows Right occipitotemporal mass 5x 3 cm on MRI ? Glioma Continue Decadron 10 mg IV every 6 hours, Keppra for seizure prophylaxis Maintain SBP <160. NSG_ Dr. Gomez s/p brain biopsy. path pending. Neurology Dr. Chung following RESP: Acute respiratory failure PE RLL Tobacco abuse Self extubated 09/25/16 Oxygen PRN keep sat >92% Continue DuoNeb every 6 hours scheduled and when necessary Heparin drip for PE on hold s/p neurosurgery CV: Atrial fibrillation Elevated troponin -?neurogenic She received aspirin 324 in the ED. Monitor HR and BP keep MAP>65mmHg Echo 09/23 showed EF 30-35% with wall motion abnormalities..takotsubo syndrome vs CAD. Cards- Dr. Park --increase carvedilol to 6.25mg po BID GI: tolerating diet. Protonix for GI prophylaxis. mild dyspepsia, will add one- time dose tums. FEN/RENAL: Monitor renal function, I/O's, electrolytes replacement per protocol. SL IVF. --d/c Armstrong. ID: Possible UTI Urinalysis shows 12 WBCs and trace leukocyte esterase. Continue Rocephin 1 g IV every 24 hours HEME: Monitor CBC. , Heme is following s/p IVC filter placement 09/27. ENDO: Random cortisol appropriate, hemoglobin A1c 5.3 TSH is normal. SSI if needed for glycemic control PROPH: SCDs and teds for DVT prophylaxis. heparin on hold s/p neurosurgery. Protonix 40 mg IV daily for stress ulcer prophylaxis. ACCESS: Peripheral IV providing adequate access at this time. Palliative care on case Level 2 Serafin Arias MD Sep 29, 2016 15:26
[2016-09-29] MEDS: DOCUSATE SODIUM 50 MG/SENNA 8.6 MG TAB PO SCH (20:33)
[2016-09-29] MEDS: CARVEDILOL 6.25 MG TAB PO SCH (20:33)
[2016-09-29] MEDS: cefTRIAXone INJ 1,000 MG in SODIUM CHLORIDE 0.9% INJ 100 ML IV SCH (21:21)
[2016-09-30] VITALS (12 sets, daily range): BP systolic 107–192; BP diastolic 56–90; PULSE 67–84; RESP 18–22; TEMP 97.8–98.3; O2SAT 93–100
[2016-09-30] MEDS: INSULIN ASPART SUPPLEMENTAL SCALE SQ SCH ×4 (03:00→22:44)
[2016-09-30] MEDS: DEXAMETHASONE SOD PHOS 4 MG/ML VIAL IV PUSH SCH ×4 (05:27→23:35)
[2016-09-30 09:06] LABS: HEMATOCRIT 42.5 % (35.0-46.0); MEAN CORPUSCULAR HEMOGLOBIN 29.8 PG (27.0-34.0); MEAN CORPUSCULAR HGB CONC 33.5 % (32.0-36.0); PLATELET COUNT 184 TH/MM3 (150-450); RED BLOOD COUNT 4.78 MIL/MM3 (4.00-5.30); RED CELL DISTRIBUTION WIDTH 14.4 % (11.6-17.2); REVIEW FLAG FINAL; WHITE BLOOD COUNT 13.3 TH/MM3 (4.0-11.0)
[2016-09-30 09:27] LABS: BICARBONATE 24.3 MEQ/L (21.0-32.0); POTASSIUM 3.7 MEQ/L (3.5-5.1)
[2016-09-30] MEDS: levETIRAcetam INJ 500 MG in SODIUM CHLORIDE 0.9% INJ 100 ML IV SCH (09:33)
[2016-09-30] MEDS: PANTOPRAZOLE SOD 40 MG DELAYED RELEASE TAB PO SCH (09:33)
[2016-09-30] MEDS: SODIUM CHLORIDE 0.9% FLUSH 5 ML FLUSH IV FLUSH SCH ×2 (09:33→21:17)
[2016-09-30] MEDS: CARVEDILOL 6.25 MG TAB PO SCH ×2 (09:33→21:17)
--- NOTE | 2016-09-30 10:31 | HHI.NSPN ---
(Joanne Mariano) Note Status Status: Progress Note (Joanne Mraiano) Interval History Interval History Ms. Bay is a 71 year old female who presented to [facility] with acute delirium. She had reported peopler were coming to her house, she was having panic attacks. She was brought to [facility] by her family member. A CT Brain showed a small focal hemorrhage in right temporal lobe with large amount of vasogenic edema. No known history of brain masses or tumors. She also reports of recently having headaches, as well as some weakness on the left side. 09/24/16: Came to evaluate pt but off the floor for MRI for prolonged period of time. Called MRI and pt pulled out IV and is agitated and tech states she may need to be sedated and intubated for MRI as she is not going to hold still and lost IV access for contrast MRI. 09/25/16: Pt sedated on Diprivan and Fentanyl drips. Intubated. Opens eyes when stimulated. Follows simple commands. 09/26/16: MRI Brain w/contrast shows underlying mass. She also now with DVT/PE on heparin drip. Currently on soft restraints. Oriented, and follows simple commands. No family at bedside. 09/27: drowsy on precedex due to agitation. we had discussed with her daughter who is POA over the phone, she is requesting for a needle bx. 09/29: POD 1 s/p needle biopsy of brain lesion, frz section reveals glioma. Currently awake, eating her breakfast. 2: POD 2, continues to do well, denies surgical pain, moves all four extremities, oriented x 3 (Joanne Mariano) Labs, Micro, & Vital Signs Results Date Time Temp Pulse Resp B/P Pulse Ox O2 Delivery O2 Flow Rate FiO2 09/30/16 06:00 71 09/30/16 04:00 67 09/30/16 04:00 97.9 81 21 149/84 93 09/30/16 02:00 72 09/30/16 00:00 97.8 82 18 107/56 95 09/30/16 00:00 82 09/29/16 22:00 80 09/29/16 20:00 77 09/29/16 20:00 97.8 80 17 136/75 97 09/29/16 19:32 98 21 09/29/16 18:00 89 09/29/16 16:00 99.0 81 16 130/78 98 09/29/16 16:00 81 09/29/16 14:00 74 09/29/16 12:00 73 09/29/16 12:00 97.6 73 15 149/74 97 09/30/16 07:00 Intake Total 2661 ml Output Total 1200 ml Balance 1461 ml Constitutional Vital Signs Date Time Temp Pulse Resp B/P Pulse Ox O2 Delivery O2 Flow Rate FiO2 09/30/16 06:00 71 09/30/16 04:00 67 09/30/16 04:00 97.9 81 21 149/84 93 09/30/16 02:00 72 09/30/16 00:00 97.8 82 18 107/56 95 09/30/16 00:00 82 09/29/16 22:00 80 09/29/16 20:00 77 09/29/16 20:00 97.8 80 17 136/75 97 09/29/16 19:32 98 21 09/29/16 18:00 89 09/29/16 16:00 99.0 81 16 130/78 98 09/29/16 16:00 81 09/29/16 14:00 74 09/29/16 12:00 73 09/29/16 12:00 97.6 73 15 149/74 97 09/30/16 07:00 Intake Total 2661 ml Output Total 1200 ml Balance 1461 ml (Joanne Mariano) Review of Systems/Exam Exam Alert, oriented to name, place, and year, relaxed and comfortable in bed. Wound dry CN: Pupils 4 mm equal, EOMs grossly intact. Facial appear grossly symmetric at rest Neck: soft, supple Motor: moves all four extremities well to command Abdomen: Soft Plantars downgoing b/l Cerebellar: grossly intact finger to nose b/l (Joanne Mariano) Medications Current Medications Current Medications Medications (Trade) Dose Ordered Sig/Hardeep Route PRN Reason Start Time Stop Time Status Last Admin Dose Admin Dextrose (D50w (Vial) Inj) 25 ml UNSCH PRN IV PUSH HYPOGLYCEMIA-SEE COMMENTS 09/23/16 03:00 Glucagon (Glucagon Inj) 1 mg UNSCH PRN OTHER HYPOGLYCEMIA-SEE COMMENTS 09/23/16 03:00 Insulin Aspart 1 1 Q4H SQ 09/23/16 03:00 09/29/16 10:41 Potassium Chloride 100 ml @ 50 mls/hr Q2H PRN IV For Potassium 2.8 - 3.2 mEq/L 09/23/16 03:00 Potassium Chloride (KCl 20 Meq Premix Inj) 100 ml @ 50 mls/hr Q2H PRN IV For Potassium 2.8 - 3.2 mEq/L 09/23/16 03:00 Potassium Chloride 40 meq 40 meq UNSCH PRN PO/TUBE For Potassium 3.3 - 3.5 mEq/L 09/23/16 03:00 Potassium Chloride 100 ml @ 25 mls/hr UNSCH PRN IV For Potassium 3.3 - 3.5 mEq/L 09/23/16 03:00 Potassium Chloride 100 ml @ 50 mls/hr Q2H PRN IV For Potassium 3.3 - 3.5 mEq/L 09/23/16 03:00 09/28/16 18:28 Magnesium Sulfate/ Sodium Chloride (Magnesium Sulfate Inj/NS Inj) 100 ml @ 50 mls/hr UNSCH PRN IV For Magnesium 0.9 - 1.1 mg/dL 09/23/16 03:00 Magnesium Oxide 800 mg 800 mg UNSCH PRN PO For Magnesium 1.2 - 1.6 mg/dL 09/23/16 03:00 Magnesium Sulfate/ Sodium Chloride (Magnesium Sulfate Inj/NS Inj) 100 ml @ 50 mls/hr UNSCH PRN IV For Magnesium 1.2 - 1.6 mg/dL 09/23/16 03:00 Potassium Phosphate 2000 mg 2,000 mg Q4H PRN PO For Phosphorus < 2.5 mg/dL 09/23/16 03:00 Sodium Phosphate/ Sodium Chloride (Sodium Phosphate Inj/NS 250 ml Inj) 250 ml @ 42 mls/hr UNSCH PRN IV For Phosphorus < 2.5 mg/dL 09/23/16 03:00 Potassium Chloride (KCl 40 Meq/30 ml Liq) 40 meq UNSCH PRN PO/TUBE SEE LABEL COMMENTS 09/23/16 03:00 Potassium Phosphate 2000 mg 2,000 mg UNSCH PRN PO/TUBE SEE LABEL COMMENTS 09/23/16 03:00 Potassium Phosphate 30 mmol/ Sodium Chloride 260 ml @ 42 mls/hr UNSCH PRN IV SEE LABEL COMMENTS 09/23/16 03:00 09/23/16 16:38 Ceftriaxone Sodium/Sodium Chloride (Rocephin Inj/NS Inj) 100 ml @ 200 mls/hr Q24H IV 09/23/16 22:00 09/29/16 21:21 Hydralazine HCl (Apresoline Inj) 10 mg Q4H PRN IV PUSH SBP >160 09/23/16 03:30 09/29/16 23:26 Labetalol HCl (Trandate Inj) 10 mg Q4H PRN IV PUSH SBP >160 09/23/16 03:30 IV Flush (NS Flush) 2 ml UNSCH PRN IV FLUSH FLUSH AFTER USING IV ACCESS 09/23/16 03:30 IV Flush (NS Flush) 2 ml BID IV FLUSH 09/23/16 09:00 09/30/16 09:33 Ondansetron HCl (Zofran Inj) 4 mg Q6H PRN IV NAUSEA OR VOMITING 09/23/16 03:30 Miscellaneous Information 1 Q361D XX 09/23/16 03:30 09/23/16 03:30 Chlorhexidine Gluconate (Chlorhexidine 2% Cloth) Taper DAILY@04 TOP 09/23/16 04:00 09/19/17 03:59 09/28/16 04:31 Chlorhexidine Gluconate (Chlorhexidine 2% Cloth) 3 pack UNSCH PRN TOP HYGIENIC CARE 09/23/16 03:30 Dexamethasone Sodium Phosphate (Decadron Inj) 10 mg Q6HR IV PUSH 09/23/16 13:15 09/30/16 05:27 Haloperidol Lactate (Haldol Inj) 2 mg Q6H PRN IV PUSH AGITATION AND/OR HALLUCINATION 09/24/16 01:00 09/24/16 05:36 Senna/Docusate Sodium 1 tab 1 tab HS PO 09/27/16 21:00 09/28/16 20:30 Levetriacetam/ Sodium Chloride (Keppra Inj/NS Inj) 105 ml @ 400 mls/hr Q12H IV 09/28/16 21:00 09/30/16 09:33 Bisacodyl (Dulcolax Supp) 10 mg DAILY PRN [place] CONSTIPATION 09/28/16 14:30 Pantoprazole Sodium (Protonix) 40 mg DAILY PO 09/28/16 15:30 09/30/16 09:33 Calcium Gluconate 1 gm 1 gm UNSCH PRN IV SEE LABEL COMMENTS 09/28/16 14:30 Magnesium Sulfate/ Sodium Chloride (Magnesium Sulfate Inj/NS Inj) 108 ml @ 108 mls/hr UNSCH PRN IV MAGNESIUM LESS THAN 2 09/28/16 14:30 Acetaminophen/ Hydrocodone Bitart (Winner 10-325 Mg) 1 tab Q4H PRN PO PAIN SCALE 1 TO 5 09/28/16 14:30 Acetaminophen/ Hydrocodone Bitart (Winner 10-325 Mg) 2 tab Q4H PRN PO PAIN SCALE 6 TO 10 09/28/16 14:30 09/29/16 23:27 Morphine Sulfate (Morphine Inj) 2 mg Q2H PRN IV PUSH PAIN SCALE 1 TO 6 09/28/16 14:30 Morphine Sulfate (Morphine Inj) 4 mg Q2H PRN IV PUSH PAIN SCALE 7 TO 10 09/28/16 14:30 Acetaminophen (Tylenol) 650 mg Q4H PRN PO TEMPERATURE > 101.5 F 09/28/16 14:30 Carvedilol (Coreg) 6.25 mg Q12HR PO 09/29/16 21:00 09/30/16 09:33 (Joanne Mariano) Medical Decision Making MDM Remarks 71 y/o female brought by her family due to delirium and anxiety MRI Brain shows right temporal lobe mass, s/p needle biopsy of brain mass, 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 I reviewed and agree with the findings presented. I attest that I had a [id number] encounter with the patient on the same day, and personally performed and documented my assessment and findings in the medical record. (AlexandriaDinh burciaga Margaux A. PA Sep 30, 2016 10:31 Dinh Ibrahim MD Oct 01, 2016 19:17
--- NOTE | 2016-09-30 10:39 | PD.ONC.PN ---
Subjective Subjective Remarks Afebrile overnight. Patient resting comfortably without complaint. no overnight events. Objective Data Date Time Temp Pulse Resp B/P Pulse Ox O2 Delivery O2 Flow Rate FiO2 09/30/16 06:00 71 09/30/16 04:00 67 09/30/16 04:00 97.9 81 21 149/84 93 09/30/16 02:00 72 09/30/16 00:00 97.8 82 18 107/56 95 09/30/16 00:00 82 09/29/16 22:00 80 09/29/16 20:00 77 09/29/16 20:00 97.8 80 17 136/75 97 09/29/16 19:32 98 21 09/29/16 18:00 89 09/29/16 16:00 99.0 81 16 130/78 98 09/29/16 16:00 81 09/29/16 14:00 74 09/29/16 12:00 73 09/29/16 12:00 97.6 73 15 149/74 97 09/30/16 09/30/16 09/30/16 07:00 15:00 23:00 Intake Total 555 ml Balance 555 ml Result Diagram: 09/30/16 0848 09/30/16 0848 Laboratory Results Laboratory Tests Test 09/29/16 09/30/16 11:45 08:48 White Blood Count 14.8 TH/MM3 13.3 TH/MM3 Red Blood Count 4.81 MIL/MM3 4.78 MIL/MM3 Hemoglobin 14.3 GM/DL 14.3 GM/DL Hematocrit 43.0 % 42.5 % Mean Corpuscular Volume 89.3 FL 89.0 FL Mean Corpuscular Hemoglobin 29.7 PG 29.8 PG Mean Corpuscular Hemoglobin 33.3 % 33.5 % Concent Red Cell Distribution Width 14.1 % 14.4 % Platelet Count 224 TH/MM3 184 TH/MM3 Mean Platelet Volume 9.1 FL 9.0 FL Neutrophils (%) (Auto) 80.4 % Lymphocytes (%) (Auto) 8.5 % Monocytes (%) (Auto) 10.5 % Eosinophils (%) (Auto) 0.4 % Basophils (%) (Auto) 0.2 % Neutrophils # (Auto) 11.9 TH/MM3 Lymphocytes # (Auto) 1.3 TH/MM3 Monocytes # (Auto) 1.6 TH/MM3 Eosinophils # (Auto) 0.1 TH/MM3 Basophils # (Auto) 0.0 TH/MM3 CBC Comment AUTO DIFF Differential Comment AUTO DIFF CONFIRMED Platelet Estimate NORMAL Platelet Morphology Comment NORMAL Red Cell Morphology Comment NORMAL Sodium Level 141 MEQ/L Potassium Level 3.7 MEQ/L Chloride Level 108 MEQ/L Carbon Dioxide Level 24.3 MEQ/L Anion Gap 9 MEQ/L Blood Urea Nitrogen 18 MG/DL Creatinine 0.57 MG/DL Estimat Glomerular Filtration 104 ML/MIN Rate Random Glucose 138 MG/DL Calcium Level 8.4 MG/DL Administered Medications Medications (Trade) Dose Ordered Sig/Hardeep Route PRN Reason Start Time Stop Time Status Last Admin Dose Admin Insulin Aspart 1 1 Q4H SQ 09/23/16 03:00 09/29/16 10:41 Potassium Chloride 100 ml @ 50 mls/hr Q2H PRN IV For Potassium 3.3 - 3.5 mEq/L 09/23/16 03:00 09/28/16 18:28 Potassium Phosphate 30 mmol/ Sodium Chloride 260 ml @ 42 mls/hr UNSCH PRN IV SEE LABEL COMMENTS 09/23/16 03:00 09/23/16 16:38 Ceftriaxone Sodium/Sodium Chloride (Rocephin Inj/NS Inj) 100 ml @ 200 mls/hr Q24H IV 09/23/16 22:00 09/29/16 21:21 Hydralazine HCl (Apresoline Inj) 10 mg Q4H PRN IV PUSH SBP >160 09/23/16 03:30 09/29/16 23:26 IV Flush (NS Flush) 2 ml BID IV FLUSH 09/23/16 09:00 09/30/16 09:33 Miscellaneous Information 1 Q361D XX 09/23/16 03:30 09/23/16 03:30 Chlorhexidine Gluconate (Chlorhexidine 2% Cloth) Taper DAILY@04 TOP 09/23/16 04:00 09/19/17 03:59 09/28/16 04:31 Dexamethasone Sodium Phosphate (Decadron Inj) 10 mg Q6HR IV PUSH 09/23/16 13:15 09/30/16 05:27 Haloperidol Lactate (Haldol Inj) 2 mg Q6H PRN IV PUSH AGITATION AND/OR HALLUCINATION 09/24/16 01:00 09/24/16 05:36 Senna/Docusate Sodium 1 tab 1 tab HS PO 09/27/16 21:00 09/28/16 20:30 Levetriacetam/ Sodium Chloride (Keppra Inj/NS Inj) 105 ml @ 400 mls/hr Q12H IV 09/28/16 21:00 09/30/16 09:33 Pantoprazole Sodium (Protonix) 40 mg DAILY PO 09/28/16 15:30 09/30/16 09:33 Acetaminophen/ Hydrocodone Bitart ([place]coe 10-325 Mg) 2 tab Q4H PRN PO PAIN SCALE 6 TO 10 09/28/16 14:30 09/29/16 23:27 Carvedilol (Coreg) 6.25 mg Q12HR PO 09/29/16 21:00 09/30/16 09:33 Objective Remarks GENERAL: Elderly female, sitting upright in room in [facility]. SKIN: Warm and dry. HEAD: Normocephalic. right scalp wound without oozing/bleeding. EYES: No injection or drainage. NECK: Supple, trachea midline. CARDIOVASCULAR: +S1/S2 RESPIRATORY: Breath sounds equal bilaterally. No accessory muscle use. GASTROINTESTINAL: Abdomen soft, non-tender, nondistended. EXTREMITIES: No cyanosis NEUROLOGICAL: awake and alert, normal speech. Assessment/Plan Problem List: (1) Brain mass Status: Acute Plan: 09/30/16: pathology shows Glioblastoma Multiforme. treatment would be resection +/- Temodar and radiation. will await NS decision on resection. --CT brain showed small focal hemorrhage involving right temporal lobe with prominent with vasogenic edema. Underlying neoplasm is not excluded. 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 --? plan for +biopsy vs. resection 09/28/16 by NS --CT ab/pelvis: no mets (2) Pulmonary embolism Status: Acute Plan: s/p IVC filter placement on 09/27 --CTA showed PE --u/s legs: no DVT Assessment 71y/o female with pulmonary embolism, admitted with AMS. h/o atrial fibrillation Attending Statement OOB to chair. Eating AAO x 3 D/W Pt regarding path = GBM Recommend resection and then XRT with temodar. D/W Dr Ibrahim about surgery. He stated that DR Moulton ( Family friend in [place] [facility]) I have called Dr Moulton and d/w him about path and need for surgery. He is going to d/w family and will make the decision. The exam, history, and the medical decision-making described in the above note were completed with the assistance of the mid-level provider. I reviewed and agree with the findings presented. I attest that I had a [id number] encounter with the patient on the same day, and personally performed and documented my assessment and findings in the medical record. Jenniffer Ramirez Sep 30, 2016 10:39 Donis Tim MD Sep 30, 2016 17:30
--- NOTE | 2016-09-30 17:41 | HHI.PR ---
Review/Management Diagnosis glioblastoma right temporal lobe Diagnosis/Plan: Subjective Subjective Comments No acute events reported No seizures Active Medications Current Medications Medications (Trade) Dose Ordered Sig/Hardeep Route Start Time Stop Time Status Last Admin (D50w (Vial) Inj) 25 ml UNSCH PRN IV PUSH 09/23/16 03:00 (Glucagon Inj) 1 mg UNSCH PRN OTHER 09/23/16 03:00 Insulin Aspart 1 1 Q4H SQ 09/23/16 03:00 09/29/16 10:41 Potassium Chloride 100 ml @ 50 mls/hr Q2H PRN IV 09/23/16 03:00 (KCl 20 Meq Premix Inj) 100 ml @ 50 mls/hr Q2H PRN IV 09/23/16 03:00 Potassium Chloride 40 meq 40 meq UNSCH PRN PO/TUBE 09/23/16 03:00 Potassium Chloride 100 ml @ 25 mls/hr UNSCH PRN IV 09/23/16 03:00 Potassium Chloride 100 ml @ 50 mls/hr Q2H PRN IV 09/23/16 03:00 09/28/16 18:28 (Magnesium Sulfate Inj/NS Inj) 100 ml @ 50 mls/hr UNSCH PRN IV 09/23/16 03:00 Magnesium Oxide 800 mg 800 mg UNSCH PRN PO 09/23/16 03:00 (Magnesium Sulfate Inj/NS Inj) 100 ml @ 50 mls/hr UNSCH PRN IV 09/23/16 03:00 Potassium Phosphate 2000 mg 2,000 mg Q4H PRN PO 09/23/16 03:00 (Sodium Phosphate Inj/NS 250 ml Inj) 250 ml @ 42 mls/hr UNSCH PRN IV 09/23/16 03:00 (KCl 40 Meq/30 ml Liq) 40 meq UNSCH PRN PO/TUBE 09/23/16 03:00 Potassium Phosphate 2000 mg 2,000 mg UNSCH PRN PO/TUBE 09/23/16 03:00 Potassium Phosphate 30 mmol/ Sodium Chloride 260 ml @ 42 mls/hr UNSCH PRN IV 09/23/16 03:00 09/23/16 16:38 (Rocephin Inj/NS Inj) 100 ml @ 200 mls/hr Q24H IV 09/23/16 22:00 09/29/16 21:21 (Apresoline Inj) 10 mg Q4H PRN IV PUSH 09/23/16 03:30 09/29/16 23:26 (Trandate Inj) 10 mg Q4H PRN IV PUSH 09/23/16 03:30 (NS Flush) 2 ml UNSCH PRN IV FLUSH 09/23/16 03:30 (NS Flush) 2 ml BID IV FLUSH 09/23/16 09:00 09/30/16 09:33 (Zofran Inj) 4 mg Q6H PRN IV 09/23/16 03:30 Miscellaneous Information 1 Q361D XX 09/23/16 03:30 09/23/16 03:30 (Chlorhexidine 2% Cloth) Taper DAILY@04 TOP 09/23/16 04:00 09/19/17 03:59 09/28/16 04:31 (Chlorhexidine 2% Cloth) 3 pack UNSCH PRN TOP 09/23/16 03:30 (Decadron Inj) 10 mg Q6HR IV PUSH 09/23/16 13:15 09/30/16 05:27 (Haldol Inj) 2 mg Q6H PRN IV PUSH 09/24/16 01:00 09/24/16 05:36 Senna/Docusate Sodium 1 tab 1 tab HS PO 09/27/16 21:00 09/28/16 20:30 (Keppra Inj/NS Inj) 105 ml @ 400 mls/hr Q12H IV 09/28/16 21:00 09/30/16 09:33 (Dulcolax Supp) 10 mg DAILY PRN TX 09/28/16 14:30 (Protonix) 40 mg DAILY PO 09/28/16 15:30 09/30/16 09:33 Calcium Gluconate 1 gm 1 gm UNSCH PRN IV 09/28/16 14:30 (Magnesium Sulfate Inj/NS Inj) 108 ml @ 108 mls/hr UNSCH PRN IV 09/28/16 14:30 (Hudson 10-325 Mg) 1 tab Q4H PRN PO 09/28/16 14:30 (Hudson 10-325 Mg) 2 tab Q4H PRN PO 09/28/16 14:30 09/29/16 23:27 (Morphine Inj) 2 mg Q2H PRN IV PUSH 09/28/16 14:30 (Morphine Inj) 4 mg Q2H PRN IV PUSH 09/28/16 14:30 (Tylenol) 650 mg Q4H PRN PO 09/28/16 14:30 (Coreg) 6.25 mg Q12HR PO 09/29/16 21:00 09/30/16 09:33 Allergies Allergies Coded Allergies Codeine (Verified Allergy, Severe, nausea/vomiting/itching/sweating, 09/28/16) Exam I&O / VS 09/29/16 09/29/16 09/30/16 15:00 23:00 07:00 Intake Total 1201 ml 905 ml 555 ml Output Total 850 ml 350 ml Balance 351 ml 555 ml 555 ml Intake Oral 500 ml 480 ml 480 ml IV Total 701 ml 425 ml 75 ml Output Urine Total 850 ml 350 ml # Voids 5 3 # Bowel Movements 0 0 0 Vital Signs Date Time Temp Pulse Resp B/P Pulse Ox O2 Delivery O2 Flow Rate FiO2 09/30/16 12:00 98.0 67 18 147/79 94 09/30/16 10:00 80 09/30/16 08:00 98.0 84 22 134/69 94 09/30/16 08:00 84 09/30/16 06:00 71 09/30/16 04:00 67 09/30/16 04:00 97.9 81 21 149/84 93 09/30/16 02:00 72 09/30/16 00:00 97.8 82 18 107/56 95 09/30/16 00:00 82 09/29/16 22:00 80 09/29/16 20:00 77 09/29/16 20:00 97.8 80 17 136/75 97 09/29/16 19:32 98 21 09/29/16 18:00 89 Exam Comments alert, Follows commands. CN 2-12 normal Motor 5/5 BUE and BLE Objective Micro and Labs Laboratory Tests Test 09/30/16 08:48 White Blood Count 13.3 Red Blood Count 4.78 Hemoglobin 14.3 Hematocrit 42.5 Mean Corpuscular Volume 89.0 Mean Corpuscular Hemoglobin 29.8 Mean Corpuscular Hemoglobin 33.5 Concent Red Cell Distribution Width 14.4 Platelet Count 184 Mean Platelet Volume 9.0 Sodium Level 141 Potassium Level 3.7 Chloride Level 108 Carbon Dioxide Level 24.3 Anion Gap 9 Blood Urea Nitrogen 18 Creatinine 0.57 Estimat Glomerular Filtration 104 Rate Random Glucose 138 Calcium Level 8.4 Diagnostic Tests Pathology of temporal lobe mass bx is consistent with glioblastoma multiforme Jerman Chung PhD Sep 30, 2016 17:41
--- NOTE | 2016-09-30 18:41 | HHI.PR ---
Subjective Remarks Patient seen today around 3 PM. Sitting up in bed. Appears comfortable. Says she feels all right. Denies any pain. Objective Vital Signs Date Time Temp Pulse Resp B/P Pulse Ox O2 Delivery O2 Flow Rate FiO2 09/30/16 16:00 98.0 78 18 167/74 09/30/16 12:00 98.0 67 18 147/79 94 09/30/16 10:00 80 09/30/16 08:00 98.0 84 22 134/69 94 09/30/16 08:00 84 09/30/16 06:00 71 09/30/16 04:00 67 09/30/16 04:00 97.9 81 21 149/84 93 09/30/16 02:00 72 09/30/16 00:00 97.8 82 18 107/56 95 09/30/16 00:00 82 09/29/16 22:00 80 09/29/16 20:00 77 09/29/16 20:00 97.8 80 17 136/75 97 09/29/16 19:32 98 21 I/O 09/29/16 09/29/16 09/29/16 09/30/16 09/30/16 09/30/16 07:00 15:00 23:00 07:00 15:00 23:00 Intake Total 940 ml 1201 ml 905 ml 555 ml 520 ml Output Total 600 ml 850 ml 350 ml Balance 340 ml 351 ml 555 ml 555 ml 520 ml Intake Oral 240 ml 500 ml 480 ml 480 ml 520 ml IV Total 700 ml 701 ml 425 ml 75 ml Output Urine Total 600 ml 850 ml 350 ml # Voids 5 3 3 # Bowel Movements 0 0 0 0 Result Diagram: 09/30/16 0848 09/30/16 0848 Imaging Last Impressions Abdomen X-Ray 09/27/16 1500 Signed Impressions: Service Date/Time: Tuesday, September 27, 2016 15:03 - CONCLUSION: 1. There is an IVC filter present overlying the right aspect of the L2 and L3 vertebral bodies. Otherwise, no radiopaque foreign body is seen. 2. Otherwise, no acute finding is visualized. Bon Carbajal MD IVC Filter Placement X-Ray 09/27/16 0000 Signed Impressions: Service Date/Time: Tuesday, September 27, 2016 13:13 - CONCLUSION: Uncomplicated inferior vena cava filter placement as above. This is a retrievable device and can be retrieved up to one year from its date of placement. Flynn Canales Jr., MD Head CT 09/26/16599 Signed Impressions: Service Date/Time: Monday, September 26, 2016 08:07 - CONCLUSION: No significant change Bon Iyer MD Chest X-Ray 09/26/16599 Signed Impressions: Service Date/Time: Monday, September 26, 2016 03:22 - CONCLUSION: No acute disease. Bon Garcia MD Chest CT 09/25/16 0000 Signed Impressions: Service Date/Time: Sunday, September 25, 2016 16:38 - CONCLUSION: 1. Positive for pulmonary embolic disease. 2. No evidence for metastatic disease to the thorax. Eleuterio Pyle MD Abdomen/Pelvis CT 09/25/16 0000 Signed Impressions: Service Date/Time: Sunday, September 25, 2016 16:38 - CONCLUSION: 1. Positive for pulmonary embolus right lower lobe. 2. No evidence for metastatic disease within the abdomen and pelvis. Eleuterio Pyle MD Neck Magnetic Resonance Angiography 09/24/16 0000 Signed Impressions: Service Date/Time: Saturday, September 24, 2016 14:31 - CONCLUSION: Normal examination for a patient of this age. Eleuterio Pyle MD Lower Extremity Ultrasound 09/23/16 Signed Impressions: Service Date/Time: Friday, September 23, 2016 11:17 - CONCLUSION: Negative exam with no evidence of deep venous thrombosis. Alo Barton MD Head Magnetic Resonance Angiography 09/23/16 0000 Signed Impressions: Service Date/Time: Friday, September 23, 2016 09:52 - CONCLUSION: Significant intracranial atherosclerotic disease, otherwise negative. Ciaran Davis MD FACR Brain MRI 09/23/16 0000 Signed Impressions: Service Date/Time: Friday, September 23, 2016 09:52 - CONCLUSION: Abnormality in the right parietal occipital region that does show some blood clots and vasogenic edema. This probably represents an ischemic event; however, the amount of vasogenic edema is concerning. MRI with contrast would be of benefit when the patient is clinically stable. Ciaran Davis MD FACR Other Results IVC filter placement 09/27 Right brain biopsy 09/28. Objective Remarks GENERAL: Sitting up in bed. Appears comfortable. Alert, oriented to place. Pleasant. SKIN: Warm and dry. HEAD: Normocephalic. EYES: No scleral icterus. No injection or drainage. NECK: Supple, trachea midline. No JVD CARDIOVASCULAR: Regular rate and rhythm without murmurs, gallops, or rubs. RESPIRATORY: Breath sounds equal bilaterally. No accessory muscle use. GASTROINTESTINAL: Abdomen soft, non-tender, nondistended. MUSCULOSKELETAL: No cyanosis, or edema. Generalized weakness. BACK: Nontender without obvious deformity. No CVA tenderness. A/P Assessment and Plan Assessment: 71yF POD 1 s/p trey hole biopsy of brain mass. doing well. stable for transfer to floor. NEURO: //Acute R temporal lobe hemorrhage with edema. //Postoperative right brain mass biopsy on 09/28 //Right occipitotemporal mass 5x 3 cm on MRI //Schizophrenia //Anxiety Off Precedex drip, monitor neuro status MRI with contrast 09/24/16 shows Right occipitotemporal mass 5x 3 cm on MRI ? Glioma Maintain SBP <160. -NSG_ Dr. Gomez s/p brain biopsy. path pending. Neurology Dr. Chung following. Appreciate assistance. -10 you IV steroids and Keppra as per neurosurgery, neurology. RESP: //Acute respiratory failure //PE RLL //Status post IVC filter placement on 09/27 //Tobacco abuse Self extubated 09/25/16 Oxygen PRN keep sat >92% Continue DuoNeb every 6 hours scheduled and when necessary Heparin drip for PE on hold s/p neurosurgery. Recommend restart full and coagulation when approved by neurosurgery. CV: //Atrial fibrillation //Elevated troponin -?neurogenic She received aspirin 324 in the ED. Monitor HR and BP keep MAP>65mmHg Echo 09/23 showed EF 30-35% with wall motion abnormalities..takotsubo syndrome vs CAD. Cards- Dr. Park Into new carvedilol -Continue carvedilol 6.25mg po BID -Plan start aspirin when approved by neurosurgery ID: //Possible UTI Urinalysis shows 12 WBCs and trace leukocyte esterase. Continue Rocephin 1 g IV every 24 hours //Leukocytosis. No fevers. Continue to monitor for infection. ENDO: PROPH: SCDs and teds for DVT prophylaxis. -Anti-Coagulation as per neurosurgery.- Protonix 40 mg IV daily for stress ulcer prophylaxis. Discharge Planning As per neurosurgery. Continues on IV steroids. Venkatesh Hardwick MD Sep 30, 2016 18:41
[2016-09-30] MEDS: ACETAMINOPHEN/HYDROcodone 325 MG/10 MG TAB PO PRN (18:50)
[2016-09-30] MEDS: DOCUSATE SODIUM 50 MG/SENNA 8.6 MG TAB PO SCH (20:05)
[2016-09-30] MEDS: hydrALAZINE HCL 20 MG/ML VIAL IV PUSH PRN (20:05)
[2016-09-30] MEDS: levETIRAcetam 500 MG TAB PO SCH (20:05)
[2016-09-30] MEDS: cefTRIAXone INJ 1,000 MG in SODIUM CHLORIDE 0.9% INJ 100 ML IV SCH (21:33)
[2016-09-30] MEDS: CHLORHEXIDINE GLUCONATE 2 % 1 PACK (2 CLOTHS) TOP SCH (22:33)
[2016-10-01] VITALS (7 sets, daily range): BP systolic 129–160; BP diastolic 74–82; PULSE 66–97; RESP 17–20; TEMP 95.4–98.6; O2SAT 94–99
[2016-10-01] MEDS: INSULIN ASPART SUPPLEMENTAL SCALE SQ SCH ×6 (03:00→23:00)
[2016-10-01] MEDS: DEXAMETHASONE SOD PHOS 4 MG/ML VIAL IV PUSH SCH ×3 (05:26→18:00)
[2016-10-01 07:01] LABS: AUTOMATED NEUTROPHIL # 8.5 TH/MM3 (1.8-7.7); BASOPHIL % 0.2 % (0.0-2.0); EOSINOPHIL % 0.2 % (0.0-4.0); HEMATOCRIT 39.7 % (35.0-46.0); LYMPH % 11.4 % (9.0-44.0); LYMPHOCYTE # 1.2 TH/MM3 (1.0-4.8); MEAN CELL VOLUME 88.3 FL (80.0-100.0); MEAN CORPUSCULAR HGB CONC 33.9 % (32.0-36.0); MONO % 9.7 % (0.0-8.0); NEUT % 78.5 % (16.0-70.0); PLATELET COUNT 146 TH/MM3 (150-450); RED BLOOD COUNT 4.49 MIL/MM3 (4.00-5.30); RED CELL DISTRIBUTION WIDTH 14.2 % (11.6-17.2); WHITE BLOOD COUNT 10.8 TH/MM3 (4.0-11.0)
[2016-10-01 07:27] LABS: BICARBONATE 22.9 MEQ/L (21.0-32.0); POTASSIUM 3.5 MEQ/L (3.5-5.1)
[2016-10-01 07:41] LABS: HEMO FLAGS AUTO DIFF
[2016-10-01] MEDS: levETIRAcetam 500 MG TAB PO SCH ×2 (08:54→21:59)
[2016-10-01] MEDS: CARVEDILOL 6.25 MG TAB PO SCH ×2 (08:54→21:59)
[2016-10-01] MEDS: PANTOPRAZOLE SOD 40 MG DELAYED RELEASE TAB PO SCH (08:54)
[2016-10-01] MEDS: SODIUM CHLORIDE 0.9% FLUSH 5 ML FLUSH IV FLUSH SCH ×2 (08:57→21:00)
--- NOTE | 2016-10-01 13:02 | HHI.NSPN ---
(Joanne Mariano) Note Status Status: Progress Note (Joanne Mariano) Interval History Interval History Ms. Bay is a 71 year old female who presented to [facility] with acute delirium. She had reported peopler were coming to her house, she was having panic attacks. She was brought to [place] by her family member. A CT Brain showed a small focal hemorrhage in right temporal lobe with large amount of vasogenic edema. No known history of brain masses or tumors. She also reports of recently having headaches, as well as some weakness on the left side. 09/24/16: Came to evaluate pt but off the floor for MRI for prolonged period of time. Called MRI and pt pulled out IV and is agitated and tech states she may need to be sedated and intubated for MRI as she is not going to hold still and lost IV access for contrast MRI. 09/25/16: Pt sedated on Diprivan and Fentanyl drips. Intubated. Opens eyes when stimulated. Follows simple commands. 09/26/16: MRI Brain w/contrast shows underlying mass. She also now with DVT/PE on heparin drip. Currently on soft restraints. Oriented, and follows simple commands. No family at bedside. 09/27: drowsy on precedex due to agitation. we had discussed with her daughter who is POA over the phone, she is requesting for a needle bx. 09/29: POD 1 s/p needle biopsy of brain lesion, frz section reveals glioma. Currently awake, eating her breakfast. 09/30: POD 2, continues to do well, denies surgical pain, moves all four extremities, oriented x 3 10/01: POD 3, out of unit, she has no complaints, would like to leave hospital soon. Final patho reprots GBM (Joanne Mariano) Labs, Micro, & Vital Signs Results Date Time Temp Pulse Resp B/P Pulse Ox O2 Delivery O2 Flow Rate FiO2 10/01/16 04:00 95.4 81 20 153/74 94 10/01/16 01:29 69 150/77 97 09/30/16 23:00 98.3 70 18 97 09/30/16 20:48 98 09/30/16 20:00 97.9 76 21 192/90 100 09/30/16 19:15 80 09/30/16 16:00 98.0 78 18 167/74 10/01/16 07:00 Intake Total 1370 ml Balance 1370 ml Constitutional Vital Signs Date Time Temp Pulse Resp B/P Pulse Ox O2 Delivery O2 Flow Rate FiO2 10/01/16 04:00 95.4 81 20 153/74 94 10/01/16 01:29 69 150/77 97 09/30/16 23:00 98.3 70 18 97 09/30/16 20:48 98 09/30/16 20:00 97.9 76 21 192/90 100 09/30/16 19:15 80 09/30/16 16:00 98.0 78 18 167/74 10/01/16 07:00 Intake Total 1370 ml Balance 1370 ml (Joanne Mariano) Review of Systems/Exam Exam Alert, oriented to name, place, and year, relaxed and comfortable in bed. Wound dry, no signs of infection. Clean dressing in place CN: Pupils 4 mm equal, EOMs grossly intact. Facial appear grossly symmetric at rest Neck: soft, supple Motor: moves all four extremities well to command Abdomen: Soft Plantars downgoing b/l Cerebellar: grossly intact finger to nose b/l (Joanne Mariano) Medical Decision Making MDM Remarks 71 y/o female brought by her family due to delirium and anxiety MRI Brain shows right temporal lobe mass, s/p needle biopsy of brain mass, final pathology reveals Glioblastoma Multiforme DVT, s/p placement of IVC filter (Joanne Mariano) Plan Plan Remarks final pathology reviewed, patho sent tertiary facility for 2nd opinion, if GBM for resection next week oncology, radiation oncology (Joanne Mariano) Attending Statement The exam, history, and the medical decision-making described in the above note were completed with the assistance of the mid-level provider. I reviewed and agree with the findings presented. I attest that I had a [id number] encounter with the patient on the same day, and personally performed and documented my assessment and findings in the medical record. (Dinh Ibrahim MD) Joanne Mariano Oct 01, 2016 13:02 Dinh Ibrahim MD Oct 01, 2016 18:52
[2016-10-01 13:34] LABS: SCAN/DIFF AUTO DIFF CONFIRMED
--- NOTE | 2016-10-01 16:05 | HHI.PR ---
Subjective Remarks pt says she feels well. no pain. no cp or sob. positive BM. today aaox3 Objective Vital Signs Date Time Temp Pulse Resp B/P Pulse Ox O2 Delivery O2 Flow Rate FiO2 10/01/16 13:09 96.9 97 18 129/82 96 10/01/16 08:37 97 21 10/01/16 04:00 95.4 81 20 153/74 94 10/01/16 01:29 69 150/77 97 09/30/16 23:00 98.3 70 18 97 09/30/16 20:48 98 09/30/16 20:00 97.9 76 21 192/90 100 09/30/16 19:15 80 I/O 09/30/16 09/30/16 09/30/16 10/01/16 10/01/16 10/01/16 07:00 15:00 23:00 07:00 15:00 23:00 Intake Total 555 ml 520 ml 730 ml 120 ml Balance 555 ml 520 ml 730 ml 120 ml Intake Oral 480 ml 520 ml 480 ml 120 ml IV Total 75 ml 250 ml # Voids 3 3 5 1 # Bowel Movements 0 1 0 Result Diagram: 10/01/1662410/01/16 0625 Objective Remarks GENERAL: Sitting up in chair.. AAOx3 SKIN: Warm and dry. HEAD: Normocephalic. EYES: No scleral icterus. No injection or drainage. NECK: Supple, trachea midline. No JVD CARDIOVASCULAR: Regular rate and rhythm without murmurs, gallops, or rubs. RESPIRATORY: Breath sounds equal bilaterally. No accessory muscle use. GASTROINTESTINAL: Abdomen soft, non-tender, nondistended. MUSCULOSKELETAL: No cyanosis, or edema. Generalized weakness. BACK: Nontender without obvious deformity. No CVA tenderness. A/P Assessment and Plan Assessment: 71yF POD 1 s/p trey hole biopsy of brain mass. doing well. stable for transfer to floor. NEURO: //Acute R temporal lobe hemorrhage with edema. //Postoperative right brain mass biopsy on 09/28 //Right occipitotemporal mass 5x 3 cm on MRI //Schizophrenia //Anxiety Off Precedex drip, monitor neuro status MRI with contrast 09/24/16 shows Right occipitotemporal mass 5x 3 cm on MRI ? Glioma Maintain SBP <160. -NSG_ Dr. Gomez s/p brain biopsy. path pending. Neurology Dr. Chung following. Appreciate assistance. -continue IV steroids and Keppra as per neurosurgery, neurology. -Awaiting pathology from tertiary center - IF GBM then may need resection next week. RESP: //Acute respiratory failure //PE RLL //Status post IVC filter placement on 09/27 //Tobacco abuse Self extubated 09/25/16 Oxygen PRN keep sat >92% Continue DuoNeb every 6 hours scheduled and when necessary Heparin drip for PE on hold s/p neurosurgery. -Recommend restart full and coagulation when approved by neurosurgery. CV: //Atrial fibrillation //Elevated troponin -?neurogenic She received aspirin 324 in the ED. Monitor HR and BP keep MAP>65mmHg Echo 09/23 showed EF 30-35% with wall motion abnormalities..takotsubo syndrome vs CAD. Cards- Dr. Park -Continue carvedilol 6.25mg po BID -Plan start aspirin when approved by neurosurgery ID: //Possible UTI Urinalysis shows 12 WBCs and trace leukocyte esterase. mixed agnieszka. Continue Rocephin 1 g IV every 24 hours //Leukocytosis. resolved. Continue to monitor for infection. ENDO: PROPH: SCDs and teds for DVT prophylaxis. -Anti-Coagulation as per neurosurgery.- Protonix 40 mg IV daily for stress ulcer prophylaxis. Discharge Planning As per neurosurgery. awaiting path from tertiary lab Continues on IV steroids. Venkatesh Hardwick MD Oct 01, 2016 16:05
[2016-10-01] MEDS: DOCUSATE SODIUM 50 MG/SENNA 8.6 MG TAB PO SCH (21:59)
[2016-10-01] MEDS: cefTRIAXone INJ 1,000 MG in SODIUM CHLORIDE 0.9% INJ 100 ML IV SCH (21:59)
[2016-10-02] VITALS (8 sets, daily range): BP systolic 103–199; BP diastolic 58–91; PULSE 63–86; RESP 16–19; TEMP 95.6–98.1; O2SAT 94–99
[2016-10-02] MEDS: DEXAMETHASONE SOD PHOS 4 MG/ML VIAL IV PUSH SCH ×5 (02:48→23:24)
[2016-10-02] MEDS: INSULIN ASPART SUPPLEMENTAL SCALE SQ SCH ×6 (03:00→23:00)
[2016-10-02] MEDS: CHLORHEXIDINE GLUCONATE 2 % 1 PACK (2 CLOTHS) TOP SCH (04:00)
[2016-10-02] MEDS: PANTOPRAZOLE SOD 40 MG DELAYED RELEASE TAB PO SCH (08:13)
[2016-10-02] MEDS: CARVEDILOL 6.25 MG TAB PO SCH ×2 (08:13→21:32)
[2016-10-02] MEDS: levETIRAcetam 500 MG TAB PO SCH ×2 (08:13→21:32)
[2016-10-02] MEDS: SODIUM CHLORIDE 0.9% FLUSH 5 ML FLUSH IV FLUSH SCH ×2 (08:13→21:32)
--- NOTE | 2016-10-02 09:23 | RC ---
cc: RADHA DAVE M.D., FEDERICO C. MD GERSHEN,EL GARCÍA MD, ALVARO DATE OF SERVICE: 09/30/2016 DATE OF : 1945. DIAGNOSIS: GBM per biopsy. Stage: Not applicable. CHIEF COMPLAINT Hallucinations, mental confusion REASON FOR CONSULTATION: Patient being evaluated for radiotherapy treatment options. HISTORY OF PRESENT ILLNESS This is a 71-year-old white female which according to the records started to have some hallucinations and some mental confusion. The patient states that she called the police twice. They came to the house and advised her that she may need to be checked. It appears that she drove to her ex [id number]'s house and was agitated, confused. As a result of this, she was brought to the emergency room. She also states had an episode when she was at [facility] and fell down due to weakness of the lower extremities. It appears that while she was in the ER she had a workup including a CT of the brain which detected possible hemorrhage and possible mass. This lead to further workup which detected a mass per MRI. She had recent biopsy of Dr. Ibrahim which is now positive for glioblastoma multiforme. I have been requested to see the patient in consult for evaluation regarding possible radiation therapy, treatment options once final surgical resection takes place. PAST MEDICAL HISTORY As above. Also history of atrial fibrillation, possible schizophrenia, hysterectomy. MEDICATIONS 1. Ceftriaxone. 2. Decadron 3. Protonix 4. Chlorhexidine. 5. Apresoline. 6. Labetalol 7. Insulin. 8. Potassium chloride 9. Hydralazine. 10. Dexamethasone. 11. Haloperidol 12. Pantoprazole ALLERGIES Codeine FAMILY HISTORY: Maternal grandmother with gastric carcinoma. SOCIAL HISTORY The patient denies ETOH intake. Alcohol abuse in the past. REVIEW OF SYSTEMS Constitutional: The patient denies any fevers or chills. ALLERGIES Codeine. Eyes: Unremarkable. ENT: Unremarkable. Neck: Unremarkable. Integumentary: Unremarkable. Cardiovascular: Unremarkable. Denies any chest pain, or clinical signs of [place] or stroke. Respiratory: Unremarkable. Gastrointestinal: Unremarkable. GENITOURINARY: Unremarkable. MUSCULOSKELETAL: The patient says he has some slight weakness of the lower extremities which is bilateral and equal. NEUROLOGIC: The patient says that sometimes he gets numbness sensation of the right hand. No other changes. PSYCHIATRIC: Patient with a history of schizophrenia, not medicated. Anxiety, some hallucinations but patient said she has not had those since being admitted to the hospital. HEMATOLOGIC: Unremarkable. PHYSICAL EXAMINATION: On examination the patient appears to be oriented to time and space, she knows that she is in the hospital. Some of the questions the patient was asked about her past are somewhat vague. It appears that the patient has some sort of mental confusion but not complete. The patient appears to have some sort of speech impediment. According to her this has been present in the past. VITAL SIGNS: Stable per hospital chart. LUNGS: Clear to auscultation, with appropriate ventilatory respiratory effort. HEART: Appeared to be regular rate and rhythm. No murmurs. NECK: Palpation of the neck and bilateral supraclavicular areas are free. ABDOMEN: Abdominal cavity: No hepatosplenomegaly. No pain elicited. EXTREMITIES: There is lower extremity edema 1+ bilaterally. NEUROLOGIC: The patient neurologic examination appears to be somewhat neurologically intact, her mental status seems to be a little bit confused. She has problems with mental equations. The patient can make conscious decisions about her treatment. No other positive findings. Surgical pathology 09/28/2016. IMPRESSION FINAL DIAGNOSIS Brain biopsy, glioblastoma multiforme, WHL grade 4. Right temporal brain. RADIOLOGY CT of the head, 09/22/2016, impression, small focal hemorrhage involving the right temporal lobe with vasogenic edema, underlying neoplasm is not excluded. MRI of the brain 09/19/2016. Impression, abnormality in the right parietal occipital region, shows blood clots and vasogenic edema. This represented ischemic event, however, the vasogenic edema is concerning. ASSESSMENT The patient is a 71 year-old white female is diagnosed with GBM. The patient is being evaluated for radiotherapy, treatment options. PLAN I had an extensive discussion with the patient with regards to her present condition. I have discussed this case with Dr. Ibrahim. I have also discussed her present condition with her [id number], Crystal, which I reached at [phone]. I explained to her the diagnosis as well as the treatment options. I discussed also with the patient the side effects and complications of the radiation therapy as well as the merits. Side effects and complications include weakness, fatigue, skin necrosis, loss of hair which could be permanent, brain damage, brain necrosis which may require prolonged use of steroids, decrease in cognitive function, decreased hearing and hearing loss, decreased vision and loss of vision. The patient and [id number] understood everything that was explained. At this point will await surgical resection by Dr. Ibrahim and then go from there accordingly. They were advised if I could be of any further help or assistance to please let me know. The patient was given one of my business cards. Dr. Ibrahim, thank you very much, for the referral of this patient and allowing me to participate in her care. If you have any questions or concerns, please do not hesitate to contact me. Abhinav York MD Radiation Oncologist TRUDY LIU/NICK /4:43 PM /8:07 AM ARYAN
--- NOTE | 2016-10-02 11:03 | HHI.NSPN ---
(Joanne Mariano) Note Status Status: Progress Note (Joanne Mariano) Interval History Interval History Ms. Bay is a 71 year old female who presented to [facility] with acute delirium. She had reported peopler were coming to her house, she was having panic attacks. She was brought to [place] by her family member. A CT Brain showed a small focal hemorrhage in right temporal lobe with large amount of vasogenic edema. No known history of brain masses or tumors. She also reports of recently having headaches, as well as some weakness on the left side. 09/24/16: Came to evaluate pt but off the floor for MRI for prolonged period of time. Called MRI and pt pulled out IV and is agitated and tech states she may need to be sedated and intubated for MRI as she is not going to hold still and lost IV access for contrast MRI. 09/25/16: Pt sedated on Diprivan and Fentanyl drips. Intubated. Opens eyes when stimulated. Follows simple commands. 09/26/16: MRI Brain w/contrast shows underlying mass. She also now with DVT/PE on heparin drip. Currently on soft restraints. Oriented, and follows simple commands. No family at bedside. 09/27: drowsy on precedex due to agitation. we had discussed with her daughter who is POA over the phone, she is requesting for a needle bx. 09/29: POD 1 s/p needle biopsy of brain lesion, frz section reveals glioma. Currently awake, eating her breakfast. 09/30: POD 2, continues to do well, denies surgical pain, moves all four extremities, oriented x 3 10/01: POD 3, out of unit, she has no complaints, would like to leave hospital soon. Final patho reprots GBM 10/02: POD 4, denies headaches, nausea, vomiting, seizures. (Joanne Mariano) Labs, Micro, & Vital Signs Results Date Time Temp Pulse Resp B/P Pulse Ox O2 Delivery O2 Flow Rate FiO2 10/02/16 08:26 98.1 75 16 160/91 94 10/02/16 05:15 97.2 64 17 138/88 99 10/02/16 01:00 97.0 63 18 146/90 99 10/01/16 21:30 98.6 74 17 140/80 99 10/01/16 17:01 97.3 66 18 160/76 96 10/01/16 13:09 96.9 97 18 129/82 96 10/02/16 07:00 Intake Total 1400 ml Balance 1400 ml Constitutional Vital Signs Date Time Temp Pulse Resp B/P Pulse Ox O2 Delivery O2 Flow Rate FiO2 10/02/16 08:26 98.1 75 16 160/91 94 10/02/16 05:15 97.2 64 17 138/88 99 10/02/16 01:00 97.0 63 18 146/90 99 10/01/16 21:30 98.6 74 17 140/80 99 10/01/16 17:01 97.3 66 18 160/76 96 10/01/16 13:09 96.9 97 18 129/82 96 10/02/16 07:00 Intake Total 1400 ml Balance 1400 ml (Joanne Mariano) Review of Systems/Exam Exam Alert, oriented to name, place, and year, relaxed and comfortable in bed. Follows simple commands. Wound is healing well. CN: Pupils 4 mm equal, EOMs grossly intact. Facial appear grossly symmetric at rest Neck: soft, supple, no meningismus or nuchal rigidity Motor: moves all four extremities well to command Abdomen: Soft, nontender Plantars downgoing b/l Cerebellar: grossly intact finger to nose b/l (Joanne Mariano) Medications Current Medications Current Medications Medications (Trade) Dose Ordered Sig/Hardeep Route PRN Reason Start Time Stop Time Status Last Admin Dose Admin Dextrose (D50w (Vial) Inj) 25 ml UNSCH PRN IV PUSH HYPOGLYCEMIA-SEE COMMENTS 09/23/16 03:00 Glucagon (Glucagon Inj) 1 mg UNSCH PRN OTHER HYPOGLYCEMIA-SEE COMMENTS 09/23/16 03:00 Insulin Aspart 1 1 Q4H SQ 09/23/16 03:00 10/01/16 19:00 Ceftriaxone Sodium/Sodium Chloride (Rocephin Inj/NS Inj) 100 ml @ 200 mls/hr Q24H IV 09/23/16 22:00 10/01/16 21:59 Hydralazine HCl (Apresoline Inj) 10 mg Q4H PRN IV PUSH SBP >160 09/23/16 03:30 09/30/16 20:05 Labetalol HCl (Trandate Inj) 10 mg Q4H PRN IV PUSH SBP >160 09/23/16 03:30 IV Flush (NS Flush) 2 ml UNSCH PRN IV FLUSH FLUSH AFTER USING IV ACCESS 09/23/16 03:30 IV Flush (NS Flush) 2 ml BID IV FLUSH 09/23/16 09:00 10/02/16 08:13 Ondansetron HCl (Zofran Inj) 4 mg Q6H PRN IV NAUSEA OR VOMITING 09/23/16 03:30 Miscellaneous Information 1 Q361D XX 09/23/16 03:30 09/23/16 03:30 Chlorhexidine Gluconate (Chlorhexidine 2% Cloth) Taper DAILY@04 TOP 09/23/16 04:00 09/19/17 03:59 09/28/16 04:31 Chlorhexidine Gluconate (Chlorhexidine 2% Cloth) 3 pack UNSCH PRN TOP HYGIENIC CARE 09/23/16 03:30 Dexamethasone Sodium Phosphate (Decadron Inj) 10 mg Q6HR IV PUSH 09/23/16 13:15 10/02/16 06:00 Haloperidol Lactate (Haldol Inj) 2 mg Q6H PRN IV PUSH AGITATION AND/OR HALLUCINATION 09/24/16 01:00 09/24/16 05:36 Senna/Docusate Sodium (Yocasta-Colace) 1 tab HS PO 09/27/16 21:00 10/01/16 21:59 Bisacodyl (Dulcolax Supp) 10 mg DAILY PRN DE CONSTIPATION 09/28/16 14:30 Pantoprazole Sodium (Protonix) 40 mg DAILY PO 09/28/16 15:30 10/02/16 08:13 Calcium Gluconate (Calcium Gluconate Inj) 1 gm UNSCH PRN IV SEE LABEL COMMENTS 09/28/16 14:30 Acetaminophen (Tylenol) 650 mg Q4H PRN PO TEMP>101F, PAIN 1-10, HEADACHE 09/28/16 14:30 Carvedilol (Coreg) 6.25 mg Q12HR PO 09/29/16 21:00 10/02/16 08:13 Levetriacetam (Keppra) 500 mg Q12HR PO 09/30/16 21:00 10/02/16 08:13 (Joanne Mariano) Medical Decision Making MDM Remarks 71 y/o female brought by her family due to delirium and anxiety MRI Brain shows right temporal lobe mass, s/p needle biopsy of brain mass, frozen section anaplastic glioma, final pathology reveals Glioblastoma Multiforme DVT, s/p placement of IVC filter (Joanne Mariano) Plan Plan Remarks final pathology reviewed, patho sent tertiary facility for 2nd opinion, and if GBM for resection next week oncology, radiation oncology cont current care discussed with patient (Joanne Mariano) Attending Statement Plan for a resection on Monday The exam, history, and the medical decision-making described in the above note were completed with the assistance of the mid-level provider. I reviewed and agree with the findings presented. I attest that I had a [id number] encounter with the patient on the same day, and personally performed and documented my assessment and findings in the medical record. (Dinh Ibrahim MD) Joanne Mariano Oct 02, 2016 11:03 Dinh Ibrahim MD Oct 02, 2016 19:36
[2016-10-02] MEDS: cefTRIAXone INJ 1,000 MG in SODIUM CHLORIDE 0.9% INJ 100 ML IV SCH (21:32)
[2016-10-02] MEDS: DOCUSATE SODIUM 50 MG/SENNA 8.6 MG TAB PO SCH (21:32)
[2016-10-02] MEDS ORDERED: amLODIPine BESYLATE 5 MG TAB PO ONE (23:00)
[2016-10-02] MEDS ORDERED: ENALAPRILAT 1.25 MG/ML VIAL IV PUSH PRN (23:00)
--- NOTE | 2016-10-02 23:01 | HHI.PR ---
Subjective Remarks Late entry. Patient seen today around 5:45 PM. Says she is feeling well. She' s been awake all day, feels like she will sleep tonight. Denies any chest pain or shortness of breath. Nursing reports no acute issues. Objective Vital Signs Date Time Temp Pulse Resp B/P Pulse Ox O2 Delivery O2 Flow Rate FiO2 10/02/16 21:49 66 160/87 10/02/16 16:00 96.6 81 18 103/58 97 10/02/16 12:35 97.5 86 17 149/76 95 10/02/16 10:13 98 21 10/02/16 08:26 98.1 75 16 160/91 94 10/02/16 05:15 97.2 64 17 138/88 99 10/02/16 01:00 97.0 63 18 146/90 99 I/O 10/01/16 10/01/16 10/01/16 10/02/16 10/02/16 10/02/16 07:00 15:00 23:00 07:00 15:00 23:00 Intake Total 120 ml 800 ml 600 ml 240 ml Balance 120 ml 800 ml 600 ml 240 ml Intake Oral 120 ml 800 ml 600 ml 240 ml # Voids 1 4 1 2 3 # Bowel Movements 0 2 0 0 Result Diagram: 10/01/1662410/01/16624 Objective Remarks GENERAL: Sitting up in bed. AAOx3. No changes on exam. SKIN: Warm and dry. HEAD: Normocephalic. EYES: No scleral icterus. No injection or drainage. NECK: Supple, trachea midline. No JVD CARDIOVASCULAR: Regular rate and rhythm without murmurs, gallops, or rubs. RESPIRATORY: Breath sounds equal bilaterally. No accessory muscle use. GASTROINTESTINAL: Abdomen soft, non-tender, nondistended. MUSCULOSKELETAL: No cyanosis, or edema. Generalized weakness. BACK: Nontender without obvious deformity. No CVA tenderness. A/P Assessment and Plan Assessment: 71yF POD 1 s/p trey hole biopsy of brain mass. doing well. stable for transfer to floor. NEURO: //Acute R temporal lobe hemorrhage with edema. //Postoperative right brain mass biopsy on 09/28 //Right occipitotemporal mass 5x 3 cm on MRI //Schizophrenia //Anxiety Off Precedex drip, monitor neuro status MRI with contrast 09/24/16 shows Right occipitotemporal mass 5x 3 cm on MRI ? Glioma Maintain SBP <160. -NSG_ Dr. Gomez s/p brain biopsy. path pending. Neurology Dr. Chung following. Appreciate assistance. -continue IV steroids and Keppra as per neurosurgery, neurology. -Awaiting pathology from tertiary center - IF GBM then may need resection next week. RESP: //Acute respiratory failure //PE RLL //Status post IVC filter placement on 09/27 //Tobacco abuse Self extubated 09/25/16 Oxygen PRN keep sat >92% Continue DuoNeb every 6 hours scheduled and when necessary Heparin drip for PE on hold s/p neurosurgery. -Recommend restart full and coagulation when approved by neurosurgery. CV: //Atrial fibrillation //Elevated troponin -?neurogenic //Hypertensive. She received aspirin 324 in the ED. Monitor HR and BP keep MAP>65mmHg Echo 09/23 showed EF 30-35% with wall motion abnormalities..takotsubo syndrome vs CAD. Cards- Dr. Park. Troponin up to 1.4 on admission, trended down. No intervention secondary to ICH -Continue carvedilol 6.25mg po BID -Plan start aspirin when approved by neurosurgery -10/02. Systolic blood pressure up to 180s. Start amlodipine daily. As needed Vasotec. ID: //Possible UTI Urinalysis shows 12 WBCs and trace leukocyte esterase. mixed agnieszka. Continue Rocephin 1 g IV every 24 hours //Leukocytosis. resolved. Continue to monitor for infection. ENDO: PROPH: SCDs and teds for DVT prophylaxis. -Anti-Coagulation as per neurosurgery.- Protonix 40 mg IV daily for stress ulcer prophylaxis. Discharge Planning As per neurosurgery. awaiting path from tertiary lab Continues on IV steroids. Venkatesh Hardwick MD Oct 02, 2016 23:01
[2016-10-03] VITALS: BP 167/87; PULSE 54; RESP 19; TEMP 96.6; O2SAT 97
[2016-10-03] MEDS: INSULIN ASPART SUPPLEMENTAL SCALE SQ SCH ×6 (03:00→23:00)
[2016-10-03] MEDS: CHLORHEXIDINE GLUCONATE 2 % 1 PACK (2 CLOTHS) TOP SCH (04:00)
[2016-10-03] MEDS: DEXAMETHASONE SOD PHOS 4 MG/ML VIAL IV PUSH SCH ×4 (05:19→23:32)
[2016-10-03 06:00] VITALS: BP 161/78; PULSE 65; RESP 18; TEMP 96.1; O2SAT 98
[2016-10-03 07:47] LABS: AUTOMATED NEUTROPHIL # 10.1 TH/MM3 (1.8-7.7); BASOPHIL # 0.1 TH/MM3 (0-0.2); BASOPHIL % 0.5 % (0.0-2.0); HEMATOCRIT 39.9 % (35.0-46.0); HEMO FLAGS DIFF FINAL; LYMPH % 7.3 % (9.0-44.0); LYMPHOCYTE # 0.9 TH/MM3 (1.0-4.8); MEAN CELL VOLUME 88.8 FL (80.0-100.0); MEAN CORPUSCULAR HEMOGLOBIN 29.8 PG (27.0-34.0); MEAN CORPUSCULAR HGB CONC 33.6 % (32.0-36.0); MONO % 8.1 % (0.0-8.0); NEUT % 84.1 % (16.0-70.0); PLATELET COUNT 124 TH/MM3 (150-450); RED CELL DISTRIBUTION WIDTH 14.4 % (11.6-17.2)
[2016-10-03 07:58] LABS: BICARBONATE 23.3 MEQ/L (21.0-32.0); POTASSIUM 3.4 MEQ/L (3.5-5.1)
[2016-10-03 08:11] VITALS: BP 183/86; PULSE 64; RESP 20; TEMP 95.8; O2SAT 98
[2016-10-03] MEDS: levETIRAcetam 500 MG TAB PO SCH ×2 (08:30→21:08)
[2016-10-03] MEDS: amLODIPine BESYLATE 5 MG TAB PO SCH (08:30)
[2016-10-03] MEDS: CARVEDILOL 6.25 MG TAB PO SCH ×2 (08:31→21:08)
[2016-10-03] MEDS: PANTOPRAZOLE SOD 40 MG DELAYED RELEASE TAB PO SCH (08:31)
[2016-10-03] MEDS: SODIUM CHLORIDE 0.9% FLUSH 5 ML FLUSH IV FLUSH SCH ×2 (08:32→21:09)
--- NOTE | 2016-10-03 10:56 | PD.ONC.PN ---
Subjective Subjective Remarks Afebrile overnight. Patient has no acute complaints. No pain. Objective Data Date Time Temp Pulse Resp B/P Pulse Ox O2 Delivery O2 Flow Rate FiO2 10/03/16 08:11 95.8 64 20 183/86 98 10/03/16 06:00 96.1 65 18 161/78 98 10/03/16 00:00 96.6 54 19 167/87 97 10/02/16 21:49 66 160/87 10/02/16 20:00 95.6 80 19 199/84 98 10/02/16 16:00 96.6 81 18 103/58 97 10/02/16 12:35 97.5 86 17 149/76 95 Result Diagram: 10/03/1626 10/03/16 07 Laboratory Results Laboratory Tests Test 10/03/16 07:26 White Blood Count 12.0 TH/MM3 Red Blood Count 4.50 MIL/MM3 Hemoglobin 13.4 GM/DL Hematocrit 39.9 % Mean Corpuscular Volume 88.8 FL Mean Corpuscular Hemoglobin 29.8 PG Mean Corpuscular Hemoglobin 33.6 % Concent Red Cell Distribution Width 14.4 % Platelet Count 124 TH/MM3 Mean Platelet Volume 9.1 FL Neutrophils (%) (Auto) 84.1 % Lymphocytes (%) (Auto) 7.3 % Monocytes (%) (Auto) 8.1 % Eosinophils (%) (Auto) 0.0 % Basophils (%) (Auto) 0.5 % Neutrophils # (Auto) 10.1 TH/MM3 Lymphocytes # (Auto) 0.9 TH/MM3 Monocytes # (Auto) 1.0 TH/MM3 Eosinophils # (Auto) 0.0 TH/MM3 Basophils # (Auto) 0.1 TH/MM3 CBC Comment DIFF FINAL Differential Comment Sodium Level 143 MEQ/L Potassium Level 3.4 MEQ/L Chloride Level 110 MEQ/L Carbon Dioxide Level 23.3 MEQ/L Anion Gap 10 MEQ/L Blood Urea Nitrogen 20 MG/DL Creatinine 0.61 MG/DL Estimat Glomerular Filtration 96 ML/MIN Rate Random Glucose 124 MG/DL Calcium Level 8.3 MG/DL Administered Medications Medications (Trade) Dose Ordered Sig/Hardeep Route PRN Reason Start Time Stop Time Status Last Admin Dose Admin Insulin Aspart 1 1 Q4H SQ 09/23/16 03:00 10/02/16 18:29 Ceftriaxone Sodium/Sodium Chloride (Rocephin Inj/NS Inj) 100 ml @ 200 mls/hr Q24H IV 09/23/16 22:00 10/02/16 21:32 Hydralazine HCl (Apresoline Inj) 10 mg Q4H PRN IV PUSH SBP >160 09/23/16 03:30 09/30/16 20:05 IV Flush (NS Flush) 2 ml BID IV FLUSH 09/23/16 09:00 10/03/16 08:32 Miscellaneous Information 1 Q361D XX 09/23/16 03:30 09/23/16 03:30 Chlorhexidine Gluconate (Chlorhexidine 2% Cloth) Taper DAILY@04 TOP 09/23/16 04:00 09/19/17 03:59 09/28/16 04:31 Dexamethasone Sodium Phosphate (Decadron Inj) 10 mg Q6HR IV PUSH 09/23/16 13:15 10/03/16 05:19 Haloperidol Lactate (Haldol Inj) 2 mg Q6H PRN IV PUSH AGITATION AND/OR HALLUCINATION 09/24/16 01:00 09/24/16 05:36 Senna/Docusate Sodium (Yocasta-Colace) 1 tab HS PO 09/27/16 21:00 10/02/16 21:32 Pantoprazole Sodium (Protonix) 40 mg DAILY PO 09/28/16 15:30 10/03/16 08:31 Carvedilol (Coreg) 6.25 mg Q12HR PO 09/29/16 21:00 10/03/16 08:31 Levetriacetam (Keppra) 500 mg Q12HR PO 09/30/16 21:00 10/03/16 08:30 Amlodipine Besylate (Norvasc) 5 mg DAILY PO 10/03/16 09:00 10/03/16 08:30 Objective Remarks GENERAL: Elderly female, sitting up in bed in nad, watching TV SKIN: Warm and dry. HEAD: Normocephalic. EYES: No injection or drainage. NECK: Supple, trachea midline. CARDIOVASCULAR: +S1/S2 RESPIRATORY: Breath sounds equal bilaterally. No accessory muscle use. GASTROINTESTINAL: Abdomen soft, non-tender, nondistended. EXTREMITIES: No cyanosis NEUROLOGICAL: awake and alert, normal speech. able to move extremities Assessment/Plan Problem List: (1) Brain mass Status: Acute Plan: 10/03/16: reviewed Dr. Alexandria restrepo, d/w patient plan to await potential resection if second opinion confirms GBM 09/30/16: pathology shows Glioblastoma Multiforme. treatment would be resection +/- Temodar and radiation. will await NS decision on resection. --CT brain showed small focal hemorrhage involving right temporal lobe with prominent with vasogenic edema. Underlying neoplasm is not excluded. 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 --? plan for +biopsy vs. resection 09/28/16 by NS --CT ab/pelvis: no mets (2) Pulmonary embolism Status: Acute Plan: s/p IVC filter placement on 09/27 --CTA showed PE --u/s legs: no DVT Assessment 71y/o female with pulmonary embolism, admitted with AMS. h/o atrial fibrillation Attending Statement bronsonuse Path is sent out to tertiary center for confirmation. IF confirmed then will need resection first fu by XRT and chemo. d/w RN The exam, history, and the medical decision-making described in the above note were completed with the assistance of the mid-level provider. I reviewed and agree with the findings presented. I attest that I had a [id number] encounter with the patient on the same day, and personally performed and documented my assessment and findings in the medical record. Jenniffer Ramirez Oct 03, 2016 10:56 Donis Tim MD Oct 03, 2016 20:18
--- NOTE | 2016-10-03 11:15 | HHI.HCPN ---
Reason for visit a. To assist with evaluation and management of symptoms including: Debility , constipation and pain. b. To assist medical decision maker(s) with: better understanding of current medical conditions; weighing benefits/burdens of medical treatment options; making medical treatment decisions. . Subjective/Interval History Patient sitting in her room, alert and oriented 3. Verbal unable to communicate needs. Intermittent confusion but easily rate directed. Patient denies any pain, shortness of breath, nausea/vomiting or abdominal discomfort. Son-in-law Benitez at bedside. Patient underwent biopsy of right temporal mass on 09/28/16 without complications, pathology report showing anaplastic glioma. Neurosurgery Dr. Ibrahim following. Radiation oncology consulted on 09/30/16, plan for surgical resection by Dr. Ibrahim if second opinion confirms glioblastoma multiform. Plan for chemoradiation post resection. Patient remains afebrile, hypertensive with SBP in the 160's. Tolerating RA. Labs today including WBC 12.0, Hgb 13.4, plt count 124. Na 143, K 3.4, Bun/creat 20/0.61. No new imaging. Spoke with alternate [facility] Benitez, medical update provided. He denies having any additional questions. Clear plan of care at this time waiting for confirmatory pathology report. Patient reports working with physical therapy, out of bed this morning was able to tolerate while using walker. Patient reports feeling weak, but eager to get out of bed. Review likelihood of patient requiring physical therapy upon discharge, review difference between acute rehabilitation vs home health with PT. Questions were answered in great detail. . Family/friend interactions See interval note. . Advance Directives Living Will: Copy in medical record Health Care Surrogate: Copy in medical record Durable Power of Beam Dyer: Completed, but not made available Advance Directive Specifics Date completed: 06/29/2015. . Health Care Surrogate(s): [facility] Crystal Romo, emily Romo. . Documented care wishes: Withheld or withdrawal life prolonging measures in the event of a severe and incurable or irreversible illness, disease or condition, or end-stage condition , or persistent vegetative state. . Significant change in goals: Full code. Continue aggressive care to include likely resection of brain mass followed by chemotherapy and radiation. . Objective Vital Signs Date Time Temp Pulse Resp B/P Pulse Ox O2 Delivery O2 Flow Rate FiO2 10/03/16 08:11 95.8 64 20 183/86 98 10/03/16 06:00 96.1 65 18 161/78 98 10/03/16 00:00 96.6 54 19 167/87 97 10/02/16 21:49 66 160/87 10/02/16 20:00 95.6 80 19 199/84 98 10/02/16 16:00 96.6 81 18 103/58 97 10/02/16 12:35 97.5 86 17 149/76 95 Intake & Output 10/03/16 10/03/16 07:00 19:00 Intake Total 480 ml Balance 480 ml Intake Oral 480 ml # Voids 3 # Bowel Movements 1 Physical Exam CONSTITUTIONAL/GENERAL: This is an adequately nourished patient, in no apparent distress. alert and following commands. TUBES/LINES/DRAINS: PIV's, SCDs. SKIN: No jaundice, rashes, or lesions. Ecchymoses on upper extremities. No wounds seen anteriorly. Skin temperature appropriate. Not diaphoretic. HEAD: Normocephalic. EYES: Pupils equal and round and reactive. No scleral icterus. No injection or drainage. ENT: Hearing appears normal. Nose without bleeding or purulent drainage. Mouth close. NECK: Trachea midline. Supple, nontender. CARDIOVASCULAR: Regular rate and rhythm without murmurs, gallops, or rubs. No JVD. Peripheral pulses symmetric. RESPIRATORY/CHEST: Symmetric, unlabored respirations. Clear but diminished to auscultation. Breath sounds equal bilaterally. GASTROINTESTINAL: Abdomen soft, nondistended. No guarding. Bowel sounds present. GENITOURINARY: Without palpable bladder distension. MUSCULOSKELETAL: Extremities without clubbing, cyanosis. +1 edema to bilateral lower extremities. NEUROLOGICAL: alert and oriented to self, place and situation. Intermittent confusion but easily reoriented. PSYCHIATRIC: calm. pleasant and cooperative. . Diagnostic Tests Laboratory Laboratory Tests Test 10/01/16 10/03/16 06:25 07:26 White Blood Count 10.8 TH/MM3 12.0 TH/MM3 (4.0-11.0) (4.0-11.0) Red Blood Count 4.49 MIL/MM3 4.50 MIL/MM3 (4.00-5.30) (4.00-5.30) Hemoglobin 13.5 GM/DL 13.4 GM/DL (11.6-15.3) (11.6-15.3) Hematocrit 39.7 % 39.9 % (35.0-46.0) (35.0-46.0) Mean Corpuscular Volume 88.3 FL 88.8 FL (80.0-100.0) (80.0-100.0) Mean Corpuscular Hemoglobin 30.0 PG 29.8 PG (27.0-34.0) (27.0-34.0) Mean Corpuscular Hemoglobin 33.9 % 33.6 % Concent (32.0-36.0) (32.0-36.0) Red Cell Distribution Width 14.2 % 14.4 % (11.6-17.2) (11.6-17.2) Platelet Count 146 TH/MM3 124 TH/MM3 (150-450) (150-450) Mean Platelet Volume 8.9 FL 9.1 FL (7.0-11.0) (7.0-11.0) Neutrophils (%) (Auto) 78.5 % 84.1 % (16.0-70.0) (16.0-70.0) Lymphocytes (%) (Auto) 11.4 % 7.3 % (9.0-44.0) (9.0-44.0) Monocytes (%) (Auto) 9.7 % (0.0-8.0) 8.1 % (0.0-8.0) Eosinophils (%) (Auto) 0.2 % (0.0-4.0) 0.0 % (0.0-4.0) Basophils (%) (Auto) 0.2 % (0.0-2.0) 0.5 % (0.0-2.0) Neutrophils # (Auto) 8.5 TH/MM3 10.1 TH/MM3 (1.8-7.7) (1.8-7.7) Lymphocytes # (Auto) 1.2 TH/MM3 0.9 TH/MM3 (1.0-4.8) (1.0-4.8) Monocytes # (Auto) 1.1 TH/MM3 1.0 TH/MM3 (0-0.9) (0-0.9) Eosinophils # (Auto) 0.0 TH/MM3 0.0 TH/MM3 (0-0.4) (0-0.4) Basophils # (Auto) 0.0 TH/MM3 0.1 TH/MM3 (0-0.2) (0-0.2) CBC Comment AUTO DIFF DIFF FINAL Differential Comment AUTO DIFF CONFIRMED Sodium Level 142 MEQ/L 143 MEQ/L (136-145) (136-145) Potassium Level 3.5 MEQ/L 3.4 MEQ/L (3.5-5.1) (3.5-5.1) Chloride Level 108 MEQ/L 110 MEQ/L (98-107) (98-107) Carbon Dioxide Level 22.9 MEQ/L 23.3 MEQ/L (21.0-32.0) (21.0-32.0) Anion Gap 11 MEQ/L (5-15) 10 MEQ/L (5-15) Blood Urea Nitrogen 20 MG/DL (7-18) 20 MG/DL (7-18) Creatinine 0.52 MG/DL 0.61 MG/DL (0.50-1.00) (0.50-1.00) Estimat Glomerular Filtration 116 ML/MIN 96 ML/MIN (>89) Rate (>89) Random Glucose 133 MG/DL 124 MG/DL (74-106) (74-106) Calcium Level 8.2 MG/DL 8.3 MG/DL (8.5-10.1) (8.5-10.1) Result Diagram: 10/03/1672510/03/16 07 Procedures * 09/28/16 -Brain biopsy * 09/27/16 -IVC filter placement. * 09/25/16 -Self extubation * 09/24/16 -Intubation . Assessment and Plan Disease Oriented Problem List: (1) Brain mass (2) Atrial fibrillation (3) Pulmonary embolism Symptom Scale: (1) Anxiety 0-10 Scale: Unable to quantify Comment: resolved. Precedex off. (2) Constipation 0-10 Scale: Unable to quantify Comment: Controlled with bowel regimen. Pertinent Non-Medical Issues Psychosocial: . Retired. has 3 children. Spiritual: [employer]. Legal: AD completed. Pending copy from family. Ethical issues impacting care: Pending designation of health-care surrogate naming [id number] Judith as HCS. . Important Contacts Kajal Romo . . Prognosis Mrs. Bay is a 71-year-old female with a past history of atrial fibrillation not on anticoagulation and questionable schizophrenia. 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 Patient is a high risk of further decline, complications and . . Code Status: Full Code Plan * CODE STATUS: Full code * MEDICAL DECISION-MAKING: [facility] Crystal Romo, [facility] Garcia Romo. * GOALS OF CARE: Full code. Continue aggressive care to include likely resection of brain mass followed by chemotherapy and radiation. * SYMPTOMS: ==Constipation, exacerbated by opioid and bedrest. Docusate/senna at HS. ==pain, acute secondary to surgical intervention. [place] and Morphine IV available as needed. == Debility, secondary to prolonged hospitalization/ bedrest. Working with physical therapy. Will likely need PT upon discharge. == Anxiety/agitation, resolved now. * Palliative care contact information has been provided to family. * Goals of care clear at this time, Palliative care will continue to follow-up as needed. . Time Spent Total Floor Time (mins): 33 (Total time to include review medical records, physical exam, bedside conversation with patient and family/[place].) >50% Counseling/Coord of Care: Yes Attestation To help prompt me to consider important information that might be impacting today's encounter and assessment, information from prior notes written by myself or my colleagues may have been "brought forward" into today's note. My signature on this note, however, is an attestation that I personally performed the exam, history, and/or decision-making noted today, and, unless otherwise indicated, the interactions with patient, family, and staff as well as the review of records all occurred today. I also attest that the listed assessment and stated plan reflect my best clinical judgment today based on the combination of historical information, prior notes, and today's exam/ interactions. When time spent is documented, it refers only to time spent today by the signer, or if indicated, combined time spent today by collaborating physician/nurse practitioner. Debbie Hooks Oct 03, 2016 11:15
[2016-10-03 12:22] VITALS: BP 118/64; PULSE 67; RESP 20; TEMP 96.2; O2SAT 97
--- NOTE | 2016-10-03 14:17 | HHI.NSPN ---
(Joanne Mariano) Note Status Status: Progress Note (Joanne Mariano) Interval History Interval History Ms. Bay is a 71 year old female who presented to [facility] with acute delirium. She had reported peopler were coming to her house, she was having panic attacks. She was brought to [place] by her family member. A CT Brain showed a small focal hemorrhage in right temporal lobe with large amount of vasogenic edema. No known history of brain masses or tumors. She also reports of recently having headaches, as well as some weakness on the left side. 09/24/16: Came to evaluate pt but off the floor for MRI for prolonged period of time. Called MRI and pt pulled out IV and is agitated and tech states she may need to be sedated and intubated for MRI as she is not going to hold still and lost IV access for contrast MRI. 09/25/16: Pt sedated on Diprivan and Fentanyl drips. Intubated. Opens eyes when stimulated. Follows simple commands. 09/26/16: MRI Brain w/contrast shows underlying mass. She also now with DVT/PE on heparin drip. Currently on soft restraints. Oriented, and follows simple commands. No family at bedside. 09/27: drowsy on precedex due to agitation. we had discussed with her daughter who is POA over the phone, she is requesting for a needle bx. 09/29: POD 1 s/p needle biopsy of brain lesion, frz section reveals glioma. Currently awake, eating her breakfast. 09/30: POD 2, continues to do well, denies surgical pain, moves all four extremities, oriented x 3 10/01: POD 3, out of unit, she has no complaints, would like to leave hospital soon. Final patho reprots GBM 10/02: POD 4, denies headaches, nausea, vomiting, seizures. 10/03: step son in law in room, pt without clinical changes overnight, PT in room to ambulate (Joanne Mariano) Labs, Micro, & Vital Signs Results Date Time Temp Pulse Resp B/P Pulse Ox O2 Delivery O2 Flow Rate FiO2 10/03/16 12:22 96.2 67 20 118/64 97 10/03/16 08:11 95.8 64 20 183/86 98 10/03/16 06:00 96.1 65 18 161/78 98 10/03/16 00:00 96.6 54 19 167/87 97 10/02/16 21:49 66 160/87 10/02/16 20:00 95.6 80 19 199/84 98 10/02/16 16:00 96.6 81 18 103/58 97 10/03/16 07:00 Intake Total 720 ml Balance 720 ml Constitutional Vital Signs Date Time Temp Pulse Resp B/P Pulse Ox O2 Delivery O2 Flow Rate FiO2 10/03/16 12:22 96.2 67 20 118/64 97 10/03/16 08:11 95.8 64 20 183/86 98 10/03/16 06:00 96.1 65 18 161/78 98 10/03/16 00:00 96.6 54 19 167/87 97 10/02/16 21:49 66 160/87 10/02/16 20:00 95.6 80 19 199/84 98 10/02/16 16:00 96.6 81 18 103/58 97 10/03/16 07:00 Intake Total 720 ml Balance 720 ml (Joanne Mariano) Review of Systems/Exam Exam Ms. Bay is alert, oriented to name, place, and year. Wound is healing well. CN: Pupils 4 mm equal, EOMs grossly intact. Facial symmetric Neck: soft, supple, no meningismus or nuchal rigidity Motor: moves all four extremities well to command Abdomen: Soft, nontender Plantars downgoing b/l Cerebellar: grossly intact finger to nose b/l Gait: ambulated short distance with rolling walker, slow, no ataxia seen (Joanne Mariano) Medications Current Medications Current Medications Medications (Trade) Dose Ordered Sig/Hardeep Route PRN Reason Start Time Stop Time Status Last Admin Dose Admin Dextrose (D50w (Vial) Inj) 25 ml UNSCH PRN IV PUSH HYPOGLYCEMIA-SEE COMMENTS 09/23/16 03:00 Glucagon (Glucagon Inj) 1 mg UNSCH PRN OTHER HYPOGLYCEMIA-SEE COMMENTS 09/23/16 03:00 Insulin Aspart 1 1 Q4H SQ 09/23/16 03:00 10/03/16 11:00 Ceftriaxone Sodium/Sodium Chloride (Rocephin Inj/NS Inj) 100 ml @ 200 mls/hr Q24H IV 09/23/16 22:00 10/02/16 21:32 Hydralazine HCl (Apresoline Inj) 10 mg Q4H PRN IV PUSH SBP >160 09/23/16 03:30 09/30/16 20:05 Labetalol HCl (Trandate Inj) 10 mg Q4H PRN IV PUSH SBP >160 09/23/16 03:30 IV Flush (NS Flush) 2 ml UNSCH PRN IV FLUSH FLUSH AFTER USING IV ACCESS 09/23/16 03:30 IV Flush (NS Flush) 2 ml BID IV FLUSH 09/23/16 09:00 10/03/16 08:32 Ondansetron HCl (Zofran Inj) 4 mg Q6H PRN IV NAUSEA OR VOMITING 09/23/16 03:30 Miscellaneous Information 1 Q361D XX 09/23/16 03:30 09/23/16 03:30 Chlorhexidine Gluconate (Chlorhexidine 2% Cloth) Taper DAILY@04 TOP 09/23/16 04:00 09/19/17 03:59 09/28/16 04:31 Chlorhexidine Gluconate (Chlorhexidine 2% Cloth) 3 pack UNSCH PRN TOP HYGIENIC CARE 09/23/16 03:30 Dexamethasone Sodium Phosphate (Decadron Inj) 10 mg Q6HR IV PUSH 09/23/16 13:15 10/03/16 13:08 Haloperidol Lactate (Haldol Inj) 2 mg Q6H PRN IV PUSH AGITATION AND/OR HALLUCINATION 09/24/16 01:00 09/24/16 05:36 Senna/Docusate Sodium (Yocasta-Colace) 1 tab HS PO 09/27/16 21:00 10/02/16 21:32 Bisacodyl (Dulcolax Supp) 10 mg DAILY PRN LA CONSTIPATION 09/28/16 14:30 Pantoprazole Sodium (Protonix) 40 mg DAILY PO 09/28/16 15:30 10/03/16 08:31 Calcium Gluconate (Calcium Gluconate Inj) 1 gm UNSCH PRN IV SEE LABEL COMMENTS 09/28/16 14:30 Acetaminophen (Tylenol) 650 mg Q4H PRN PO TEMP>101F, PAIN 1-10, HEADACHE 09/28/16 14:30 Carvedilol (Coreg) 6.25 mg Q12HR PO 09/29/16 21:00 10/03/16 08:31 Levetriacetam (Keppra) 500 mg Q12HR PO 09/30/16 21:00 10/03/16 08:30 Amlodipine Besylate (Norvasc) 5 mg DAILY PO 10/03/16 09:00 10/03/16 08:30 Enalaprilat (Vasotec Inj) 1.25 mg Q6H PRN IV PUSH SBP>160, DBP>90 10/02/16 23:00 (Joanne Mariano) Medical Decision Making MDM Remarks 71 y/o female brought by her family due to delirium and anxiety MRI Brain shows right temporal lobe mass, s/p needle biopsy of brain mass, frozen section anaplastic glioma, final pathology reveals Glioblastoma Multiforme DVT, s/p placement of IVC filter (Joanne Mariano) Plan Plan Remarks awaiting tertiary facility 2nd opinion, if GBM will need resection dw family member in room (Joanne Mariano) Attending Statement The exam, history, and the medical decision-making described in the above note were completed with the assistance of the mid-level provider. I reviewed and agree with the findings presented. I attest that I had a [id number] encounter with the patient on the same day, and personally performed and documented my assessment and findings in the medical record. (Dinh Ibrahim MD) Joanne Mariano Oct 03, 2016 14:16 Dinh Ibrahim MD Oct 05, 2016 14:44
--- NOTE | 2016-10-03 14:32 | HHI.PR ---
Subjective Remarks Feeling well. No CP/SOB. Mild cough, productive. No N/V/Pain. Still with right leg weakness, unchanged. Objective Vitals Vital Signs Date Time Temp Pulse Resp B/P Pulse Ox O2 Delivery O2 Flow Rate FiO2 10/03/16 12:22 96.2 67 20 118/64 97 10/03/16 08:11 95.8 64 20 183/86 98 10/03/16 06:00 96.1 65 18 161/78 98 10/03/16 00:00 96.6 54 19 167/87 97 10/02/16 21:49 66 160/87 10/02/16 20:00 95.6 80 19 199/84 98 10/02/16 16:00 96.6 81 18 103/58 97 I/O 10/02/16 10/02/16 10/02/16 10/03/16 10/03/16 10/03/16 06:59 14:59 22:59 06:59 14:59 22:59 Intake Total 600 ml 240 ml 480 ml Balance 600 ml 240 ml 480 ml Intake Oral 600 ml 240 ml 480 ml # Voids 2 5 1 # Bowel Movements 0 1 0 Result Diagram: 10/03/16 0726 10/03/16 0726 Imaging Last Impressions Abdomen X-Ray 09/27/16 1500 Signed Impressions: Service Date/Time: Tuesday, September 27, 2016 15:03 - CONCLUSION: 1. There is an IVC filter present overlying the right aspect of the L2 and L3 vertebral bodies. Otherwise, no radiopaque foreign body is seen. 2. Otherwise, no acute finding is visualized. Bon Carbajal MD IVC Filter Placement X-Ray 09/27/16 0000 Signed Impressions: Service Date/Time: Tuesday, September 27, 2016 13:13 - CONCLUSION: Uncomplicated inferior vena cava filter placement as above. This is a retrievable device and can be retrieved up to one year from its date of placement. Flynn Canales Jr., MD Head CT 09/26/16 0600 Signed Impressions: Service Date/Time: Monday, September 26, 2016 08:07 - CONCLUSION: No significant change Bon Iyer MD Chest X-Ray 09/26/16 0600 Signed Impressions: Service Date/Time: Monday, September 26, 2016 03:22 - CONCLUSION: No acute disease. Bon Garcia MD Chest CT 09/25/16 Signed Impressions: Service Date/Time: Sunday, September 25, 2016 16:38 - CONCLUSION: 1. Positive for pulmonary embolic disease. 2. No evidence for metastatic disease to the thorax. Eleuterio Pyle MD Abdomen/Pelvis CT 09/25/16 Signed Impressions: Service Date/Time: Sunday, September 25, 2016 16:38 - CONCLUSION: 1. Positive for pulmonary embolus right lower lobe. 2. No evidence for metastatic disease within the abdomen and pelvis. Eleuterio Pyle MD Neck Magnetic Resonance Angiography 09/24/16 Signed Impressions: Service Date/Time: Saturday, September 24, 2016 14:31 - CONCLUSION: Normal examination for a patient of this age. Eleuterio Pyle MD Lower Extremity Ultrasound 09/23/16 Signed Impressions: Service Date/Time: Friday, September 23, 2016 11:17 - CONCLUSION: Negative exam with no evidence of deep venous thrombosis. Alo Barton MD Head Magnetic Resonance Angiography 09/23/16 Signed Impressions: Service Date/Time: Friday, September 23, 2016 09:52 - CONCLUSION: Significant intracranial atherosclerotic disease, otherwise negative. Ciaran Davis MD FACR Brain MRI 09/23/16 Signed Impressions: Service Date/Time: Friday, September 23, 2016 09:52 - CONCLUSION: Abnormality in the right parietal occipital region that does show some blood clots and vasogenic edema. This probably represents an ischemic event; however, the amount of vasogenic edema is concerning. MRI with contrast would be of benefit when the patient is clinically stable. Ciaran Davis MD FACR Objective Remarks GENERAL: Well-developed well-nourished. In no acute distress. SKIN: Warm and dry. No lesions noted. HEENT: Normocephalic. Pupils equal and round. Mucous membranes pink and moist. CARDIOVASCULAR: Regular rate and rhythm. No murmur appreciated. RESPIRATORY: No accessory muscle use. Clear to auscultation. Breath sounds equal bilaterally. GASTROINTESTINAL: Abdomen soft, non-tender, nondistended. Bowel sounds x4. MUSCULOSKELETAL: No obvious deformities. No clubbing or cyanosis. No edema. NEUROLOGICAL: Awake and alert. Strength equal in bilateral lower extremities. Moves upper and lower extremities spontaneously. Normal speech. PSYCHIATRIC: Appropriate mood and affect; insight and judgment normal. A/P Assessment and Plan 71-year-old female with a past medical history of schizophrenia and A. fib who was initially admitted with hallucinations, elevated troponin, and intracranial hemorrhage //Acute R temporal lobe hemorrhage with edema. //Postoperative right brain mass biopsy on 09/28 //Right occipitotemporal mass 5x 3 cm on MRI Neurosurgery on board. Brain biopsy shows GBM, awaiting confirmation a tertiary care center. Will need resection of the mass prior to further treatment. Medical and radiation oncology on board for treatment after resection. Neurology also on board, continue Keppra -On IV steroids //Schizophrenia and anxiety Off Precedex drip, monitor neuro status //Acute respiratory failure //PE RLL //Status post IVC filter placement on 09/27 //Tobacco abuse Self extubated 09/25/16 -Oxygen PRN keep sat >92% -Continue DuoNeb when necessary -Heparin drip for PE on hold s/p neurosurgery. -Recommend restart full and coagulation when approved by neurosurgery. //Atrial fibrillation //Elevated troponin -?neurogenic vs NSTEMI //Hypertensive. Echo 09/23 showed EF 30-35% with wall motion abnormalities; takotsubo syndrome vs CAD. Cards- Dr. Park. Troponin up to 1.4 on admission, trended down. No intervention secondary to ICH. Recommended medical management. -Continue carvedilol 6.25mg po BID -Plan start aspirin when approved by neurosurgery -Started on amlodipine daily. As needed IV Vasotec and hydralazine. //Possible UTI //Leukocytosis. Resolved. Continue to monitor for infection. Urinalysis shows 12 WBCs and trace leukocyte esterase. Culture with mixed agnieszka. -Discontinue Rocephin PROPH: -SCDs and teds for DVT prophylaxis. -Anti-Coagulation as per neurosurgery. -Protonix 40 mg IV daily for stress ulcer prophylaxis. Written by Carl Carlson, acting as scribe for Dr. Hardwick on 10/03/16 at 14:31. Attending Statement The documentation accurately reflects the work performed [id number] by me, Dr. Hardwick on 10/03/16 at 14:31. Carl Carlson Oct 03, 2016 14:32 Venkatesh Hardwick MD Oct 09, 2016 07:36
[2016-10-03 15:12] VITALS: BP 169/93; PULSE 59; RESP 20; TEMP 97; O2SAT 99
[2016-10-03] MEDS: hydrALAZINE HCL 20 MG/ML VIAL IV PUSH PRN (15:52)
[2016-10-03 20:43] VITALS: BP 157/86; PULSE 83; RESP 20; TEMP 97.9; O2SAT 94
[2016-10-03] MEDS: DOCUSATE SODIUM 50 MG/SENNA 8.6 MG TAB PO SCH (21:00)
[2016-10-04] VITALS (8 sets, daily range): BP systolic 129–182; BP diastolic 67–84; PULSE 54–75; RESP 18–20; TEMP 96.1–97.1; O2SAT 95–98
[2016-10-04] MEDS: INSULIN ASPART SUPPLEMENTAL SCALE SQ SCH ×6 (02:25→22:54)
[2016-10-04] MEDS: CHLORHEXIDINE GLUCONATE 2 % 1 PACK (2 CLOTHS) TOP SCH (03:57)
[2016-10-04] MEDS: DEXAMETHASONE SOD PHOS 4 MG/ML VIAL IV PUSH SCH ×3 (06:12→16:39)
[2016-10-04 08:18] LABS: HEMATOCRIT 38.6 % (35.0-46.0); MEAN CELL VOLUME 88.7 FL (80.0-100.0); MEAN CORPUSCULAR HEMOGLOBIN 29.5 PG (27.0-34.0); MEAN CORPUSCULAR HGB CONC 33.3 % (32.0-36.0); PLATELET COUNT 109 TH/MM3 (150-450); RED BLOOD COUNT 4.35 MIL/MM3 (4.00-5.30); RED CELL DISTRIBUTION WIDTH 14.3 % (11.6-17.2); REVIEW FLAG FINAL; WHITE BLOOD COUNT 11.2 TH/MM3 (4.0-11.0)
[2016-10-04] MEDS: CARVEDILOL 6.25 MG TAB PO SCH ×2 (09:36→21:01)
[2016-10-04] MEDS: PANTOPRAZOLE SOD 40 MG DELAYED RELEASE TAB PO SCH (09:36)
[2016-10-04] MEDS: amLODIPine BESYLATE 5 MG TAB PO SCH (09:36)
[2016-10-04] MEDS: levETIRAcetam 500 MG TAB PO SCH ×2 (09:36→21:01)
[2016-10-04] MEDS: SODIUM CHLORIDE 0.9% FLUSH 5 ML FLUSH IV FLUSH SCH ×2 (09:40→21:01)
--- NOTE | 2016-10-04 09:53 | PD.ONC.PN ---
Subjective Subjective Remarks Afebrile overnight. Patient resting comfortably. She slept well overnight. Objective Data Date Time Temp Pulse Resp B/P Pulse Ox O2 Delivery O2 Flow Rate FiO2 10/04/16 09:35 67 139/70 10/04/16 08:26 97.1 62 20 168/81 97 10/04/16 05:43 96.8 70 18 145/74 97 10/04/16 00:35 96.3 75 20 129/71 95 10/03/16 20:43 97.9 83 20 157/86 94 10/03/16 15:12 97.0 59 20 169/93 99 10/03/16 12:22 96.2 67 20 118/64 97 10/04/16 10/04/16 10/04/16 07:00 15:00 23:00 Intake Total 480 ml Balance 480 ml Result Diagram: 10/04/16 0735 10/03/16 0726 Laboratory Results Laboratory Tests Test 10/04/16 07:35 White Blood Count 11.2 TH/MM3 Red Blood Count 4.35 MIL/MM3 Hemoglobin 12.9 GM/DL Hematocrit 38.6 % Mean Corpuscular Volume 88.7 FL Mean Corpuscular Hemoglobin 29.5 PG Mean Corpuscular Hemoglobin 33.3 % Concent Red Cell Distribution Width 14.3 % Platelet Count 109 TH/MM3 Mean Platelet Volume 9.3 FL Administered Medications Medications (Trade) Dose Ordered Sig/Hardeep Route PRN Reason Start Time Stop Time Status Last Admin Dose Admin Insulin Aspart (NovoLOG SUPPLEMENTAL SCALE) 1 Q4H SQ 09/23/16 03:00 10/04/16 06:23 Hydralazine HCl (Apresoline Inj) 10 mg Q4H PRN IV PUSH SBP >160 09/23/16 03:30 10/03/16 15:52 IV Flush (NS Flush) 2 ml UNSCH PRN IV FLUSH FLUSH AFTER USING IV ACCESS 09/23/16 03:30 10/04/16 06:16 IV Flush (NS Flush) 2 ml BID IV FLUSH 09/23/16 09:00 10/04/16 09:40 Miscellaneous Information 1 Q361D XX 09/23/16 03:30 09/23/16 03:30 Chlorhexidine Gluconate (Chlorhexidine 2% Cloth) Taper DAILY@04 TOP 09/23/16 04:00 09/19/17 03:59 09/28/16 04:31 Dexamethasone Sodium Phosphate (Decadron Inj) 10 mg Q6HR IV PUSH 09/23/16 13:15 10/04/16 06:12 Haloperidol Lactate (Haldol Inj) 2 mg Q6H PRN IV PUSH AGITATION AND/OR HALLUCINATION 09/24/16 01:00 09/24/16 05:36 Senna/Docusate Sodium (Yocasta-Colace) 1 tab HS PO 09/27/16 21:00 10/02/16 21:32 Pantoprazole Sodium (Protonix) 40 mg DAILY PO 09/28/16 15:30 10/04/16 09:36 Carvedilol (Coreg) 6.25 mg Q12HR PO 09/29/16 21:00 10/04/16 09:36 Levetriacetam (Keppra) 500 mg Q12HR PO 09/30/16 21:00 10/04/16 09:36 Amlodipine Besylate (Norvasc) 5 mg DAILY PO 10/03/16 09:00 10/04/16 09:36 Objective Remarks GENERAL: Elderly female, sitting up in room in [facility]. SKIN: Warm and dry. HEAD: Normocephalic. EYES: No injection or drainage. NECK: Supple, trachea midline. CARDIOVASCULAR: +S1/S2 RESPIRATORY: Breath sounds equal bilaterally. No accessory muscle use. GASTROINTESTINAL: Abdomen soft, non-tender, nondistended. EXTREMITIES: No cyanosis NEUROLOGICAL: awake and alert, normal speech. moving all extremities. Assessment/Plan Problem List: (1) Brain mass Status: Acute Plan: 10/04/16: awaiting second opinion on pathology before resection, possibly tomorrow. 09/30/16: pathology shows Glioblastoma Multiforme. treatment would be resection +/- Temodar and radiation. will await NS decision on resection. --CT brain showed small focal hemorrhage involving right temporal lobe with prominent with vasogenic edema. Underlying neoplasm is not excluded. 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 --? plan for +biopsy vs. resection 09/28/16 by NS --CT ab/pelvis: no mets (2) Pulmonary embolism Status: Acute Plan: s/p IVC filter placement on 09/27 --CTA showed PE --u/s legs: no DVT Assessment 71y/o female with pulmonary embolism, admitted with AMS. h/o atrial fibrillation Attending Statement no new c/o per NS schedule for resection tomorrow. will follow. The exam, history, and the medical decision-making described in the above note were completed with the assistance of the mid-level provider. I reviewed and agree with the findings presented. I attest that I had a [id number] encounter with the patient on the same day, and personally performed and documented my assessment and findings in the medical record. Jenniffer Ramirez Oct 04, 2016 09:53 Donis Tim MD Oct 04, 2016 19:55
--- NOTE | 2016-10-04 14:19 | HHI.PR ---
Subjective Remarks Follow up for likely GBM. Family at bedside. Plan is to proceed with surgery tomorrow. The patient denies any acute complaints at this time Eating well. Still has left hip weakness, but son states that this is chronic. Objective Vitals Vital Signs Date Time Temp Pulse Resp B/P Pulse Ox O2 Delivery O2 Flow Rate FiO2 10/04/16 12:32 96.3 54 20 140/67 10/04/16 09:35 67 139/70 10/04/16 08:26 97.1 62 20 168/81 97 10/04/16 05:43 96.8 70 18 145/74 97 10/04/16 00:35 96.3 75 20 129/71 95 10/03/16 20:43 97.9 83 20 157/86 94 10/03/16 15:12 97.0 59 20 169/93 99 I/O 10/03/16 10/03/16 10/03/16 10/04/16 10/04/16 10/04/16 07:00 15:00 23:00 07:00 15:00 23:00 Intake Total 1200 ml 480 ml Balance 1200 ml 480 ml Intake Oral 1200 ml 480 ml # Voids 1 1 1 # Bowel Movements 0 1 Result Diagram: 10/04/16 0735 10/03/16 0726 Imaging Last Impressions Abdomen X-Ray 09/27/16 1500 Signed Impressions: Service Date/Time: Tuesday, September 27, 2016 15:03 - CONCLUSION: 1. There is an IVC filter present overlying the right aspect of the L2 and L3 vertebral bodies. Otherwise, no radiopaque foreign body is seen. 2. Otherwise, no acute finding is visualized. Bon Carbajal MD IVC Filter Placement X-Ray 09/27/16 0000 Signed Impressions: Service Date/Time: Tuesday, September 27, 2016 13:13 - CONCLUSION: Uncomplicated inferior vena cava filter placement as above. This is a retrievable device and can be retrieved up to one year from its date of placement. Flynn Canales Jr., MD Head CT 09/26/16 0600 Signed Impressions: Service Date/Time: Monday, September 26, 2016 08:07 - CONCLUSION: No significant change Bon Iyer MD Chest X-Ray 09/26/16 0600 Signed Impressions: Service Date/Time: Monday, September 26, 2016 03:22 - CONCLUSION: No acute disease. Bon Garcia MD Chest CT 09/25/16 Signed Impressions: Service Date/Time: Sunday, September 25, 2016 16:38 - CONCLUSION: 1. Positive for pulmonary embolic disease. 2. No evidence for metastatic disease to the thorax. Eleuterio Pyle MD Abdomen/Pelvis CT 09/25/16 Signed Impressions: Service Date/Time: Sunday, September 25, 2016 16:38 - CONCLUSION: 1. Positive for pulmonary embolus right lower lobe. 2. No evidence for metastatic disease within the abdomen and pelvis. Eleuterio Pyle MD Neck Magnetic Resonance Angiography 09/24/16 Signed Impressions: Service Date/Time: Saturday, September 24, 2016 14:31 - CONCLUSION: Normal examination for a patient of this age. Eleuterio Pyle MD Lower Extremity Ultrasound 09/23/16 Signed Impressions: Service Date/Time: Friday, September 23, 2016 11:17 - CONCLUSION: Negative exam with no evidence of deep venous thrombosis. Alo Barton MD Head Magnetic Resonance Angiography 09/23/16 Signed Impressions: Service Date/Time: Friday, September 23, 2016 09:52 - CONCLUSION: Significant intracranial atherosclerotic disease, otherwise negative. Ciaran Davis MD FACR Brain MRI 09/23/16 Signed Impressions: Service Date/Time: Friday, September 23, 2016 09:52 - CONCLUSION: Abnormality in the right parietal occipital region that does show some blood clots and vasogenic edema. This probably represents an ischemic event; however, the amount of vasogenic edema is concerning. MRI with contrast would be of benefit when the patient is clinically stable. Ciaran Davis MD FACR Objective Remarks GENERAL: Well-developed well-nourished. In no acute distress. SKIN: Warm and dry. No lesions noted. HEENT: Normocephalic. Pupils equal and round. Mucous membranes pink and moist. CARDIOVASCULAR: Regular rate and rhythm. No murmur appreciated. RESPIRATORY: No accessory muscle use. Clear to auscultation. Breath sounds equal bilaterally. GASTROINTESTINAL: Abdomen soft, non-tender, nondistended. Bowel sounds x4. MUSCULOSKELETAL: No obvious deformities. No clubbing or cyanosis. No edema. NEUROLOGICAL: Awake and alert. Strength 4/5, but equal in bilateral lower extremities. UE strength 5/5. Moves upper and lower extremities spontaneously. Normal speech. PSYCHIATRIC: Appropriate mood and affect; insight and judgment fair to normal. A/P Assessment and Plan 71-year-old female with a past medical history of schizophrenia and A. fib who was initially admitted with hallucinations, elevated troponin, and intracranial hemorrhage //Acute R temporal lobe hemorrhage with edema. //Postoperative right brain mass biopsy on 09/28 //Right occipitotemporal mass 5x 3 cm on MRI Neurosurgery on board. Brain biopsy shows GBM, awaiting confirmation a tertiary care center. Will need resection of the mass prior to further treatment. Medical and radiation oncology on board for treatment after resection. Neurology also on board, continue Keppra -On IV steroids //Schizophrenia and anxiety Off Precedex drip, monitor neuro status //Acute respiratory failure //PE RLL //Status post IVC filter placement on 09/27 //Tobacco abuse Self extubated 09/25/16 -Oxygen PRN keep sat >92% -Continue DuoNeb when necessary -Heparin drip for PE on hold s/p neurosurgery. -Recommend restart full and coagulation when approved by neurosurgery. //Atrial fibrillation //Elevated troponin -?neurogenic vs NSTEMI //Hypertensive, labile. Echo 09/23 showed EF 30-35% with wall motion abnormalities; takotsubo syndrome vs CAD. Cards- Dr. Park. Troponin up to 1.4 on admission, trended down. No intervention secondary to ICH. Recommended medical management. -Continue carvedilol 6.25mg po BID -Plan start aspirin when approved by neurosurgery -Started on amlodipine daily, consider increasing dose. As needed IV Vasotec and hydralazine. //Possible UTI //Leukocytosis. Resolved. Continue to monitor for infection. Urinalysis shows 12 WBCs and trace leukocyte esterase. Culture with mixed agnieszka. -No further antibiotics indicated for UTI PROPH: -SCDs and teds for DVT prophylaxis. -Anti-Coagulation as per neurosurgery. -Protonix 40 mg IV daily for stress ulcer prophylaxis. Attending Statement The exam, history, and the medical decision-making described in the above note were completed with the assistance of the mid-level provider. I reviewed and agree with the findings presented. I attest that I had a [id number] encounter with the patient on the same day, and personally performed and documented my assessment and findings in the medical record. Carl Carlson Oct 04, 2016 14:19 Venkatesh Hardwick MD Oct 10, 2016 00:56
--- NOTE | 2016-10-04 15:49 | HHI.NSPN ---
(Joanne Mariano) Note Status Status: Progress Note (Joanne Mariano) Interval History Interval History Ms. Bay is a 71 year old female who presented to [facility] with acute delirium. She had reported peopler were coming to her house, she was having panic attacks. She was brought to [facility] by her family member. A CT Brain showed a small focal hemorrhage in right temporal lobe with large amount of vasogenic edema. No known history of brain masses or tumors. She also reports of recently having headaches, as well as some weakness on the left side. 09/24/16: Came to evaluate pt but off the floor for MRI for prolonged period of time. Called MRI and pt pulled out IV and is agitated and tech states she may need to be sedated and intubated for MRI as she is not going to hold still and lost IV access for contrast MRI. 09/25/16: Pt sedated on Diprivan and Fentanyl drips. Intubated. Opens eyes when stimulated. Follows simple commands. 09/26/16: MRI Brain w/contrast shows underlying mass. She also now with DVT/PE on heparin drip. Currently on soft restraints. Oriented, and follows simple commands. No family at bedside. 09/27: drowsy on precedex due to agitation. we had discussed with her daughter who is POA over the phone, she is requesting for a needle bx. 09/29: POD 1 s/p needle biopsy of brain lesion, frz section reveals glioma. Currently awake, eating her breakfast. 09/30: POD 2, continues to do well, denies surgical pain, moves all four extremities, oriented x 3 10/01: POD 3, out of unit, she has no complaints, would like to leave hospital soon. Final patho reprots GBM 10/02: POD 4, denies headaches, nausea, vomiting, seizures. 10/03: step son in law in room, pt without clinical changes overnight, PT in room to ambulate 10/04: for resection of GBM tomorrow (Joanne Mariano) Labs, Micro, & Vital Signs Results Date Time Temp Pulse Resp B/P Pulse Ox O2 Delivery O2 Flow Rate FiO2 10/04/16 12:32 96.3 54 20 140/67 10/04/16 09:35 67 139/70 10/04/16 08:26 97.1 62 20 168/81 97 10/04/16 05:43 96.8 70 18 145/74 97 10/04/16 00:35 96.3 75 20 129/71 95 10/03/16 20:43 97.9 83 20 157/86 94 10/04/16 07:00 Intake Total 1680 ml Balance 1680 ml Constitutional Vital Signs Date Time Temp Pulse Resp B/P Pulse Ox O2 Delivery O2 Flow Rate FiO2 10/04/16 12:32 96.3 54 20 140/67 10/04/16 09:35 67 139/70 10/04/16 08:26 97.1 62 20 168/81 97 10/04/16 05:43 96.8 70 18 145/74 97 10/04/16 00:35 96.3 75 20 129/71 95 10/03/16 20:43 97.9 83 20 157/86 94 10/04/16 07:00 Intake Total 1680 ml Balance 1680 ml (Joanne Mariano) Review of Systems/Exam Exam Ms. Bay is alert, oriented to name, place, and year. CN: Pupils 4 mm equal, EOMs grossly intact. Facial symmetric. Tongue midline Neck: soft, supple, no meningismus or nuchal rigidity Motor: moves all four extremities well to command Plantars downgoing b/l Cerebellar: grossly intact finger to nose b/l Heart: NRS Lung: clear b/l (Joanne Mariano) Medications Current Medications Current Medications Medications (Trade) Dose Ordered Sig/Hardeep Route PRN Reason Start Time Stop Time Status Last Admin Dose Admin Dextrose (D50w (Vial) Inj) 25 ml UNSCH PRN IV PUSH HYPOGLYCEMIA-SEE COMMENTS 09/23/16 03:00 Glucagon (Glucagon Inj) 1 mg UNSCH PRN OTHER HYPOGLYCEMIA-SEE COMMENTS 09/23/16 03:00 Insulin Aspart (NovoLOG SUPPLEMENTAL SCALE) 1 Q4H SQ 09/23/16 03:00 10/04/16 12:54 Hydralazine HCl (Apresoline Inj) 10 mg Q4H PRN IV PUSH SBP >160 09/23/16 03:30 10/03/16 15:52 Labetalol HCl (Trandate Inj) 10 mg Q4H PRN IV PUSH SBP >160 09/23/16 03:30 IV Flush (NS Flush) 2 ml UNSCH PRN IV FLUSH FLUSH AFTER USING IV ACCESS 09/23/16 03:30 10/04/16 06:16 IV Flush (NS Flush) 2 ml BID IV FLUSH 09/23/16 09:00 10/04/16 09:40 Ondansetron HCl (Zofran Inj) 4 mg Q6H PRN IV NAUSEA OR VOMITING 09/23/16 03:30 Miscellaneous Information 1 Q361D XX 09/23/16 03:30 09/23/16 03:30 Chlorhexidine Gluconate (Chlorhexidine 2% Cloth) Taper DAILY@04 TOP 09/23/16 04:00 09/19/17 03:59 09/28/16 04:31 Chlorhexidine Gluconate (Chlorhexidine 2% Cloth) 3 pack UNSCH PRN TOP HYGIENIC CARE 09/23/16 03:30 Dexamethasone Sodium Phosphate (Decadron Inj) 10 mg Q6HR IV PUSH 09/23/16 13:15 10/04/16 12:55 Haloperidol Lactate (Haldol Inj) 2 mg Q6H PRN IV PUSH AGITATION AND/OR HALLUCINATION 09/24/16 01:00 09/24/16 05:36 Senna/Docusate Sodium (Yocasta-Colace) 1 tab HS PO 09/27/16 21:00 10/02/16 21:32 Bisacodyl (Dulcolax Supp) 10 mg DAILY PRN [place] CONSTIPATION 09/28/16 14:30 Pantoprazole Sodium (Protonix) 40 mg DAILY PO 09/28/16 15:30 10/04/16 09:36 Calcium Gluconate (Calcium Gluconate Inj) 1 gm UNSCH PRN IV SEE LABEL COMMENTS 09/28/16 14:30 Acetaminophen (Tylenol) 650 mg Q4H PRN PO TEMP>101F, PAIN 1-10, HEADACHE 09/28/16 14:30 Carvedilol (Coreg) 6.25 mg Q12HR PO 09/29/16 21:00 10/04/16 09:36 Levetriacetam (Keppra) 500 mg Q12HR PO 09/30/16 21:00 10/04/16 09:36 Amlodipine Besylate (Norvasc) 5 mg DAILY PO 10/03/16 09:00 10/04/16 09:36 Enalaprilat (Vasotec Inj) 1.25 mg Q6H PRN IV PUSH SBP>160, DBP>90 10/02/16 23:00 (Joanne Mariano) Medical Decision Making MDM Remarks 71 y/o female brought by her family due to delirium and anxiety MRI Brain shows right temporal lobe mass, s/p needle biopsy of brain mass, frozen section anaplastic glioma, final pathology reveals Glioblastoma Multiforme DVT, s/p placement of IVC filter (Joanne Mariano) Plan Plan Remarks for resection of GBM tomorrow, NPO at midnight tonight, dw family member in room (Joanne Mariano) Attending Statement The exam, history, and the medical decision-making described in the above note were completed with the assistance of the mid-level provider. I reviewed and agree with the findings presented. I attest that I had a [id number] encounter with the patient on the same day, and personally performed and documented my assessment and findings in the medical record. (Dinh Ibrahim MD) Joanne Mariano Oct 04, 2016 15:49 Dinh Ibrahim MD Oct 05, 2016 14:38
[2016-10-04] MEDS: DOCUSATE SODIUM 50 MG/SENNA 8.6 MG TAB PO SCH (21:01)
[2016-10-05] MEDS: ACETAMINOPHEN 325 MG TAB PO PRN (00:14)
[2016-10-05] MEDS: DEXAMETHASONE SOD PHOS 4 MG/ML VIAL IV PUSH SCH ×4 (00:14→23:43)
[2016-10-05 01:21] VITALS: BP 141/70; PULSE 62; RESP 20; TEMP 96; O2SAT 96
[2016-10-05] MEDS: INSULIN ASPART SUPPLEMENTAL SCALE SQ SCH ×5 (03:00→22:55)
[2016-10-05] MEDS: CHLORHEXIDINE GLUCONATE 2 % 1 PACK (2 CLOTHS) TOP SCH (04:00)
[2016-10-05] MEDS ORDERED: INSULIN HUMAN REGULAR 1,000 UNITS/10 ML VIAL SQ PRN (05:00)
[2016-10-05 05:29] VITALS: BP 146/76; PULSE 64; RESP 22; TEMP 96.6; O2SAT 97
[2016-10-05] MEDS ORDERED: VANCOMYCIN INJ 1,000 MG in SODIUM CHLOR 0.9% 250 ML INJ 250 ML IV SCH (06:00)
[2016-10-05] MEDS ORDERED: ceFAZolin 2 GM PREMIX 50 ML IV SCH (06:00)
[2016-10-05 07:35] VITALS: BP 166/80; PULSE 90; RESP 18; TEMP 95.7; O2SAT 97
[2016-10-05] MEDS ORDERED: GELFOAM SIZE 100 ONE (07:37)
[2016-10-05] MEDS ORDERED: VANCOMYCIN HCL 1000 MG VIAL ONE (07:37)
[2016-10-05] MEDS ORDERED: THROMBIN (TOPICAL) 5,000 UNIT VIAL ONE (07:37)
[2016-10-05] MEDS ORDERED: FUROSEMIDE 40 MG/4 ML VIAL ONE (07:38)
[2016-10-05] MEDS ORDERED: MANNITOL INJ 50 ML ONE (07:38)
[2016-10-05] MEDS ORDERED: SODIUM CHLOR 0.9% 250 ML INJ 250 ML ONE (07:38)
[2016-10-05] MEDS ORDERED: BACITRACIN TOP OINT 15 GM TUBE ONE (07:38)
[2016-10-05] MEDS ORDERED: GENTAMICIN SULFATE 80 MG/2 ML VIAL ONE (07:38)
[2016-10-05] MEDS ORDERED: levETIRAcetam 500 MG/5 ML VIAL IV ONE (07:38)
[2016-10-05] MEDS ORDERED: LIDOCAINE 1%/EPINEPHrine 1:100,000 SOLN 30 ML VIAL ONE (07:39)
[2016-10-05] MEDS: levETIRAcetam 500 MG TAB PO SCH ×2 (08:24→20:04)
[2016-10-05] MEDS: amLODIPine BESYLATE 5 MG TAB PO SCH (08:24)
[2016-10-05] MEDS: PANTOPRAZOLE SOD 40 MG DELAYED RELEASE TAB PO SCH (08:24)
[2016-10-05] MEDS: SODIUM CHLORIDE 0.9% FLUSH 5 ML FLUSH IV FLUSH SCH ×2 (08:24→20:04)
[2016-10-05] MEDS: CARVEDILOL 6.25 MG TAB PO SCH ×2 (08:24→20:04)
[2016-10-05 11:02] LABS: AUTOMATED NEUTROPHIL # 8.6 TH/MM3 (1.8-7.7); BASOPHIL # 0.1 TH/MM3 (0-0.2); BASOPHIL % 0.6 % (0.0-2.0); EOSINOPHIL % 0.1 % (0.0-4.0); HEMATOCRIT 38.2 % (35.0-46.0); LYMPH % 9.9 % (9.0-44.0); MEAN CORPUSCULAR HEMOGLOBIN 30.1 PG (27.0-34.0); MEAN CORPUSCULAR HGB CONC 34.1 % (32.0-36.0); MONO % 6.2 % (0.0-8.0); NEUT % 83.2 % (16.0-70.0); PLATELET COUNT 108 TH/MM3 (150-450); RED BLOOD COUNT 4.35 MIL/MM3 (4.00-5.30); RED CELL DISTRIBUTION WIDTH 14.1 % (11.6-17.2); WHITE BLOOD COUNT 10.4 TH/MM3 (4.0-11.0)
[2016-10-05 11:04] LABS: HEMO FLAGS AUTO DIFF
[2016-10-05 11:15] VITALS: BP 139/72; PULSE 58; RESP 18; TEMP 95.8; O2SAT 98
[2016-10-05] MEDS ORDERED: SODIUM CHLORID 0.9% 500 ML IV SCH (11:30)
[2016-10-05] MEDS: LACTATED RINGER'S 1000 ML IV SCH (11:30)
[2016-10-05 11:52] LABS: NEUTROPHIL # MANUAL DIFF 9.7 TH/MM3 (1.8-7.7); PLATELET ESTIMATE SMEAR LOW (NORMAL); PLATELET MORPHOLOGY NORMAL (NORMAL); POLYS (SEG NEUTROPHILS) 93 % (16-70); SCAN/DIFF FINAL DIFF MANUAL; TOXIC VACUOLATION PRESENT (NONE SEEN); WBC DIFF SAMPLE 100
[2016-10-05] MEDS ORDERED: LACTATED RINGER'S 1000 ML INJ 1,000 ML IV ONE (12:00)
[2016-10-05] MEDS ORDERED: SODIUM CHLORID 0.9% 500 ML INJ 500 ML IV ONE (12:00)
[2016-10-05] MEDS ORDERED: PROPOFOL 200 MG/20 ML AMP IV ONE (12:00)
[2016-10-05] MEDS ORDERED: ONDANSETRON HCL 4 MG/2 ML VIAL IV PUSH ONE (12:00)
[2016-10-05] MEDS ORDERED: ePHEDrine/NS 25 MG/5 ML SYR IV ONE (12:00)
[2016-10-05] MEDS ORDERED: PHENYLEPH/NS 1000 MCG/10 ML SYR IV ONE (12:00)
--- NOTE | 2016-10-05 13:05 | PD.ONC.PN ---
Subjective Subjective Remarks Afebrile overnight. Patient resting comfortably without complaint. She was cold earlier but wrapped up in blankets and felt better. Healthcare surrogate at bedside. Objective Data Date Time Temp Pulse Resp B/P Pulse Ox O2 Delivery O2 Flow Rate FiO2 10/05/16 11:15 95.8 58 18 139/72 98 10/05/16 07:35 95.7 90 18 166/80 97 10/05/16 05:29 96.6 64 22 146/76 97 10/05/16 01:21 96.0 62 20 141/70 96 10/04/16 20:33 96.5 66 20 171/84 98 10/04/16 18:25 162/78 10/04/16 17:22 96.1 60 20 182/84 96 Result Diagram: 10/05/16 1043 10/03/16 0726 Laboratory Results Laboratory Tests Test 10/05/16 10/05/16 08:20 10:43 Blood Type A POSITIVE Antibody Screen NEGATIVE Blood Bank Comment White Blood Count 10.4 TH/MM3 Red Blood Count 4.35 MIL/MM3 Hemoglobin 13.1 GM/DL Hematocrit 38.2 % Mean Corpuscular Volume 88.0 FL Mean Corpuscular Hemoglobin 30.1 PG Mean Corpuscular Hemoglobin 34.1 % Concent Red Cell Distribution Width 14.1 % Platelet Count 108 TH/MM3 Mean Platelet Volume 9.2 FL Neutrophils (%) (Auto) 83.2 % Lymphocytes (%) (Auto) 9.9 % Monocytes (%) (Auto) 6.2 % Eosinophils (%) (Auto) 0.1 % Basophils (%) (Auto) 0.6 % Neutrophils # (Auto) 8.6 TH/MM3 Lymphocytes # (Auto) 1.0 TH/MM3 Monocytes # (Auto) 0.6 TH/MM3 Eosinophils # (Auto) 0.0 TH/MM3 Basophils # (Auto) 0.1 TH/MM3 CBC Comment AUTO DIFF Differential Total Cells 100 Counted Neutrophils % (Manual) 93 % Lymphocytes % 5 % Monocytes % 2 % Neutrophils # (Manual) 9.7 TH/MM3 Differential Comment FINAL DIFF MANUAL Toxic Vacuolation PRESENT Platelet Estimate LOW Platelet Morphology Comment NORMAL Administered Medications Medications (Trade) Dose Ordered Sig/Hardeep Route PRN Reason Start Time Stop Time Status Last Admin Dose Admin Insulin Aspart (NovoLOG SUPPLEMENTAL SCALE) 1 Q4H SQ 09/23/16 03:00 10/04/16 15:00 Hydralazine HCl (Apresoline Inj) 10 mg Q4H PRN IV PUSH SBP >160 09/23/16 03:30 10/03/16 15:52 IV Flush (NS Flush) 2 ml UNSCH PRN IV FLUSH FLUSH AFTER USING IV ACCESS 09/23/16 03:30 10/04/16 06:16 IV Flush (NS Flush) 2 ml BID IV FLUSH 09/23/16 09:00 10/05/16 08:24 Miscellaneous Information 1 Q361D XX 09/23/16 03:30 09/23/16 03:30 Chlorhexidine Gluconate (Chlorhexidine 2% Cloth) Taper DAILY@04 TOP 09/23/16 04:00 09/19/17 03:59 09/28/16 04:31 Dexamethasone Sodium Phosphate (Decadron Inj) 10 mg Q6HR IV PUSH 09/23/16 13:15 10/05/16 06:08 Haloperidol Lactate (Haldol Inj) 2 mg Q6H PRN IV PUSH AGITATION AND/OR HALLUCINATION 09/24/16 01:00 09/24/16 05:36 Senna/Docusate Sodium (Yocasta-Colace) 1 tab HS PO 09/27/16 21:00 10/04/16 21:01 Pantoprazole Sodium (Protonix) 40 mg DAILY PO 09/28/16 15:30 10/05/16 08:24 Acetaminophen (Tylenol) 650 mg Q4H PRN PO TEMP>101F, PAIN 1-10, HEADACHE 09/28/16 14:30 10/05/16 00:14 Carvedilol (Coreg) 6.25 mg Q12HR PO 09/29/16 21:00 10/05/16 08:24 Levetriacetam (Keppra) 500 mg Q12HR PO 09/30/16 21:00 10/05/16 08:24 Amlodipine Besylate (Norvasc) 5 mg DAILY PO 10/03/16 09:00 10/05/16 08:24 Enalaprilat 1.25 mg 1.25 mg Q6H PRN IV PUSH SBP>160, DBP>90 10/02/16 23:00 10/04/16 21:12 Lactated Ringer's (Lr 1000 ml Inj) 1,000 ml @ 30 mls/hr Q24H IV 10/05/16 11:30 10/05/16 11:30 Objective Remarks GENERAL: Elderly female, lying supine in bed in nad. SKIN: Warm and dry. HEAD: Normocephalic. EYES: No injection or drainage. NECK: Supple, trachea midline. CARDIOVASCULAR: +S1/S2 RESPIRATORY: Breath sounds equal bilaterally. No accessory muscle use. GASTROINTESTINAL: Abdomen soft, non-tender, nondistended. EXTREMITIES: No cyanosis NEUROLOGICAL: awake and alert, able to move extremities. normal speech. Assessment/Plan Problem List: (1) Brain mass Status: Acute Plan: 10/05/16: resection today per NS 09/30/16: pathology shows Glioblastoma Multiforme. treatment would be resection +/- Temodar and radiation. will await NS decision on resection. --CT brain showed small focal hemorrhage involving right temporal lobe with prominent with vasogenic edema. Underlying neoplasm is not excluded. 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 --? plan for +biopsy vs. resection 09/28/16 by NS --CT ab/pelvis: no mets (2) Pulmonary embolism Status: Acute Plan: s/p IVC filter placement on 09/27 --CTA showed PE --u/s legs: no DVT (3) Thrombocytopenia Status: Acute Plan: --?medication side effect--Prontonix? --could be due to consumption from clot, s/p IVC filter placement and has been off heparin gtt for procedure Assessment 71y/o female with pulmonary embolism, admitted with AMS. h/o atrial fibrillation Attending Statement feels better, anxious for surgery Resection of GBM today. will follow. The exam, history, and the medical decision-making described in the above note were completed with the assistance of the mid-level provider. I reviewed and agree with the findings presented. I attest that I had a [id number] encounter with the patient on the same day, and personally performed and documented my assessment and findings in the medical record. Jenniffer Ramirez Oct 05, 2016 13:05 Donis Tim MD Oct 05, 2016 22:06
[2016-10-05] MEDS ORDERED: FAMOTIDINE 20 MG/2 ML VIAL ONE (13:33)
[2016-10-05] MEDS ORDERED: ACETAMINOPHEN/HYDROcodone 325 MG/10 MG TAB PO PRN (14:45)
[2016-10-05] MEDS: levETIRAcetam INJ 500 MG in SODIUM CHLORIDE 0.9% INJ 100 ML IV SCH (14:45)
[2016-10-05] MEDS ORDERED: MAGNESIUM SULFATE INJ 4 GM in SODIUM CHLORIDE 0.9% INJ 100 ML IV PRN (14:45)
[2016-10-05] MEDS ORDERED: BISACODYL 10 MG SUPP PR PRN (14:45)
[2016-10-05] MEDS ORDERED: CALCIUM GLUCONATE 10% 1 GM/10 ML VIAL IV PRN (14:45)
[2016-10-05] MEDS ORDERED: ACETAMINOPHEN 325 MG TAB PO PRN (14:45)
[2016-10-05] MEDS ORDERED: ONDANSETRON HCL 4 MG/2 ML VIAL IV PRN (14:45)
[2016-10-05] MEDS ORDERED: MORPHINE SULFATE 4 MG/ML INJ IV PUSH PRN ×2 (14:45)
[2016-10-05] MEDS ORDERED: SODIUM CHLORIDE 0.9% FLUSH 5 ML FLUSH IVF PRN (14:45)
[2016-10-05] MEDS ORDERED: POTASSIUM CHLOR 20 MEQ PREMIX 100 ML IV PRN (14:45)
--- NOTE | 2016-10-05 16:59 | HHI.PR ---
Subjective Remarks patient not seen, in OR since earlier attempt until now. Objective Vitals Vital Signs Date Time Temp Pulse Resp B/P Pulse Ox O2 Delivery O2 Flow Rate FiO2 10/05/16 11:15 95.8 58 18 139/72 98 10/05/16 07:35 95.7 90 18 166/80 97 10/05/16 05:29 96.6 64 22 146/76 97 10/05/16 01:21 96.0 62 20 141/70 96 10/04/16 20:33 96.5 66 20 171/84 98 10/04/16 18:25 162/78 10/04/16 17:22 96.1 60 20 182/84 96 I/O 10/04/16 10/04/16 10/04/16 10/05/16 10/05/16 10/05/16 07:00 15:00 23:00 07:00 15:00 23:00 Intake Total 480 ml 960 ml 0 ml Balance 480 ml 960 ml 0 ml Intake Oral 480 ml 960 ml 0 ml # Voids 1 4 1 # Bowel Movements 1 Result Diagram: 10/05/16 1043 10/03/16 0726 Ashlie Aldrich MD Oct 05, 2016 16:59
[2016-10-05] MEDS ORDERED: DO NOT ADM ANY ANTICOAGULANT DRUGS XX PRN (17:32)
[2016-10-05] MEDS ORDERED: hydrALAZINE HCL 20 MG/ML VIAL ONE (17:37)
[2016-10-05] MEDS ORDERED: *morphine SULFATE 8 MG/ML PERIprocedure ONLY ONE (17:46)
[2016-10-05] MEDS ORDERED: MIDAZOLAM HCL 2 MG/2 ML VIAL ONE (17:56)
[2016-10-05] MEDS ORDERED: fentaNYL CITRATE 250 MCG/5 ML AMP ONE (17:56)
[2016-10-05] MEDS: NS + KCL 20 MEQ INJ 1,000 ML IV SCH ×2 (18:00→23:43)
[2016-10-05 18:27] LABS: AUTOMATED NEUTROPHIL # 7.8 TH/MM3 (1.8-7.7); BASOPHIL % 0.1 % (0.0-2.0); HEMATOCRIT 37.8 % (35.0-46.0); HEMO FLAGS DIFF FINAL; LYMPH % 9.2 % (9.0-44.0); LYMPHOCYTE # 0.9 TH/MM3 (1.0-4.8); MEAN CELL VOLUME 89.1 FL (80.0-100.0); MEAN CORPUSCULAR HEMOGLOBIN 29.6 PG (27.0-34.0); MEAN CORPUSCULAR HGB CONC 33.2 % (32.0-36.0); MONO % 9.9 % (0.0-8.0); NEUT % 80.8 % (16.0-70.0); PLATELET COUNT 121 TH/MM3 (150-450); RED BLOOD COUNT 4.25 MIL/MM3 (4.00-5.30); RED CELL DISTRIBUTION WIDTH 14.2 % (11.6-17.2); WHITE BLOOD COUNT 9.7 TH/MM3 (4.0-11.0)
[2016-10-05] MEDS ORDERED: hydrALAZINE HCL 20 MG/ML VIAL IV ONE (18:30)
[2016-10-05 18:48] LABS: BICARBONATE 27.9 MEQ/L (21.0-32.0); POTASSIUM 3.4 MEQ/L (3.5-5.1)
--- NOTE | 2016-10-05 18:56 | PD.CONS ---
[facility] Service Critical Care Medicine Consult Requested By Dr. Ibrahim Reason for Consult postop management following R craniectomy and glioblastoma resection Primary Care Physician Unknown History of Present Illness 71 yo WF with past medical history of schizophrenia, paroxysmal atrial fibrillation, anxiety with panic attacks who [place] [facility] [place] with a one-week history of paranoia and hallucinations and bifrontal headache.. Her workup revealed a CT brain that showed a small focal hemorrhage in the right temporal lobe with a large amount of vasogenic edema. MRI with contrast 09/24/16 shows Right occipitotemporal mass 5x 3 cm concerning for Glioma. She underwent stereotactic biopsy right temporal lobe mass 09/28/[address] Ibrahim. Pathology demonstrated WHO IV Glioblastoma Multiforme. She was evaluated by heme oncology who recommended resection +/-Temodar and radiation. Today she has undergone R temporal craniotomy with R temporal lobe mass resection. A SHERIDAN remains in place which has had about 65 mL of sanginous output. In the OR she was intubated with 2 Yuan without difficulty. Received Keppra 500 mg, Decadron 10 mg IV, 1500 crystalloid. Urine output was 1500 and EBL was 100 mL. She has been extubated and is in PACU wth sats 97% on 3 L NC. BP is 119/53, she is in sinus rhythm in 50s, BP 119/53. She is alert, oriented and following commands with all extremities. She is to be admitted to [facility] for close postoperative neuro monitoring. Critical care medicine has been re- consulted by Dr. Ibrahim to assist with management. Her hospital course has previously been complicated by right lower lobe pulmonary embolism on CT . BLE U/s was negative 09/23. She underwent retrievable IVC filter placement . Past Family Social History Allergies: Coded Allergies: Codeine (Verified Allergy, Severe, nausea/vomiting/itching/sweating, ) Past Medical History Schizophrenia - she states she was diagnosed in but has never been compliant with meds. Tobacco abuse Codeine intolerancecauses vomiting Past Surgical History face lift BTL Total hysterectomy IVC filter placement 09/27/16 (Dr. Canales, interventional radiology) Active Ordered Medications Current Medications Medications (Trade) Dose Ordered Sig/Hardeep Route Start Time Stop Time Status Last Admin (D50w (Vial) Inj) 25 ml UNSCH PRN IV PUSH 09/23/16 03:00 (Glucagon Inj) 1 mg UNSCH PRN OTHER 09/23/16 03:00 (NovoLOG SUPPLEMENTAL SCALE) 1 Q4H SQ 09/23/16 03:00 10/04/16 15:00 (Apresoline Inj) 10 mg Q4H PRN IV PUSH 09/23/16 03:30 10/03/16 15:52 (Trandate Inj) 10 mg Q4H PRN IV PUSH 09/23/16 03:30 (NS Flush) 2 ml UNSCH PRN IV FLUSH 09/23/16 03:30 10/04/16 06:16 (NS Flush) 2 ml BID IV FLUSH 09/23/16 09:00 10/05/16 08:24 (Zofran Inj) 4 mg Q6H PRN IV 09/23/16 03:30 Miscellaneous Information 1 Q361D XX 09/23/16 03:30 09/23/16 03:30 (Chlorhexidine 2% Cloth) Taper DAILY@04 TOP 09/23/16 04:00 09/19/17 03:59 09/28/16 04:31 (Chlorhexidine 2% Cloth) 3 pack UNSCH PRN TOP 09/23/16 03:30 (Decadron Inj) 10 mg Q6HR IV PUSH 09/23/16 13:15 10/05/16 06:08 (Haldol Inj) 2 mg Q6H PRN IV PUSH 09/24/16 01:00 09/24/16 05:36 (Yocasta-Colace) 1 tab HS PO 09/27/16 21:00 10/04/16 21:01 (Dulcolax Supp) 10 mg DAILY PRN ME 09/28/16 14:30 (Protonix) 40 mg DAILY PO 09/28/16 15:30 10/05/16 08:24 (Calcium Gluconate Inj) 1 gm UNSCH PRN IV 09/28/16 14:30 (Tylenol) 650 mg Q4H PRN PO 09/28/16 14:30 10/05/16 00:14 (Coreg) 6.25 mg Q12HR PO 09/29/16 21:00 10/05/16 08:24 (Keppra) 500 mg Q12HR PO 09/30/16 21:00 10/05/16 08:24 (Norvasc) 5 mg DAILY PO 10/03/16 09:00 10/05/16 08:24 Enalaprilat 1.25 mg 1.25 mg Q6H PRN IV PUSH 10/02/16 23:00 10/04/16 21:12 Lactated Ringer's 1,000 ml @ 30 mls/hr Q24H IV 10/05/16 11:30 10/05/16 11:30 Sodium Chloride 500 ml @ 30 mls/hr [id number] IV 10/05/16 11:30 10/06/16 11:29 (NS + KCl 20 Meq Inj) 1,000 ml @ 100 mls/hr Q10H IV 10/05/16 14:34 10/05/16 18:00 (NS Flush) 2 ml UNSCH PRN IVF 10/05/16 14:45 IV Flush 2 ml 2 ml BID IVF 10/05/16 21:00 Cefazolin Sodium/ Dextrose 50 ml @ 100 mls/hr Q8H IV 10/05/16 21:00 10/06/16 13:29 (Keppra Inj/NS Inj) 105 ml @ 400 mls/hr Q12H IV 10/05/16 14:45 (Dulcolax Supp) 10 mg DAILY PRN ME 10/05/16 14:45 (Colace) 100 mg BID PO 10/05/16 21:00 (Protonix) 40 mg DAILY PO 10/06/16 09:00 (Protonix Inj) 40 mg DAILY IVP 10/06/16 09:00 (Zofran Inj) 4 mg Q6H PRN IV 10/05/16 14:45 Calcium Gluconate 1 gm 1 gm UNSCH PRN IV 10/05/16 14:45 Potassium Chloride 100 ml @ 50 mls/hr UNSCH PRN IV 10/05/16 14:45 (Magnesium Sulfate Inj/NS Inj) 108 ml @ 108 mls/hr UNSCH PRN IV 10/05/16 14:45 (Acton 10-325 Mg) 1 tab Q4H PRN PO 10/05/16 14:45 (Acton 10-325 Mg) 2 tab Q4H PRN PO 10/05/16 14:45 (Morphine Inj) 2 mg Q2H PRN IV PUSH 10/05/16 14:45 (Morphine Inj) 4 mg Q2H PRN IV PUSH 10/05/16 14:45 (Tylenol) 650 mg Q4H PRN PO 10/05/16 14:45 Miscellaneous Information ALL NURSING DEPARTME... UNSCH PRN XX 10/05/16 17:32 10/06/16 17:31 Family History Father of an HI at age 95 Paternal grandmother had gastric cancer in her 60s. No other family history of cancer. No family history of stroke Social History Smoked 3 packs of cigarettes per day since she was age 10. She states she quit in 1993. Denies use of alcohol or illicit drugs She lived alone prior to hospitalization. Physical Exam Vital Signs Vital Signs Date Time Temp Pulse Resp B/P Pulse Ox O2 Delivery O2 Flow Rate FiO2 10/05/16 18:30 56 15 124/66 97 Nasal Cannula 3 121/51 10/05/16 18:15 57 15 133/69 97 Nasal Cannula 3 122/53 10/05/16 18:00 58 15 132/71 96 Nasal Cannula 3 123/58 10/05/16 17:45 56 15 142/78 96 Nasal Cannula 3 128/54 10/05/16 17:30 97.5 54 18 174/91 95 Nasal Cannula 3 145/73 10/05/16 11:15 95.8 58 18 139/72 98 10/05/16 07:35 95.7 90 18 166/80 97 10/05/16 05:29 96.6 64 22 146/76 97 10/05/16 01:21 96.0 62 20 141/70 96 10/04/16 20:33 96.5 66 20 171/84 98 Physical Exam Temp 97.5 pulse 54, sinus rhythm blood pressure 119/53 sats 97% on 3 L nasal cannula. GENERAL: Well-nourished, well-developed 71-year-old elderly female who is laying in PACU bed. SKIN: Warm and dry. No rash. HEAD: Normocephalic. There is a circumferential stockinette dressing in place over her head. SHERIDAN drain is in place with some sanguinous output. EYES: Pupils are 2 mm and reactive bilaterally. No scleral icterus. No injection or drainage. ENT: No nasal bleeding or discharge. Mucous membranes pink and moist. NECK: Trachea midline. No JVD. CARDIOVASCULAR: Regular rhythm, sinus rhythm in the 50s on the monitor. No murmurs rubs or gallops. RESPIRATORY: Breathing comfortably on 3 L nasal cannula sats 97%. Clear to auscultation bilaterally without wheezes Rales or rhonchi. GASTROINTESTINAL: Abdomen soft, non-tender, nondistended. Bowel sounds present. : Armstrong in place with light yellow urine output. MUSCULOSKELETAL: Extremities without clubbing, cyanosis. There is 2+ bipedal edema. No leg warmth or palpable cords. NEUROLOGICAL: Awake and alert. No obvious cranial nerve deficits. She is oriented to self, month, year, [facility]. Normal speech. No facial droop. Moves all extremities to command. Lifts bilateral hands off bed with no pronator drift. Strength 5 out of 5 bilateral lower extremities. Laboratory Laboratory Tests Test 10/05/16 10/05/16 10/05/16 10/05/16 08:20 10:43 16:23 16:25 Blood Type A POSITIVE A POSITIVE Antibody Screen NEGATIVE Blood Bank Comment White Blood Count 10.4 Red Blood Count 4.35 Hemoglobin 13.1 Hematocrit 38.2 Mean Corpuscular Volume 88.0 Mean Corpuscular Hemoglobin 30.1 Mean Corpuscular Hemoglobin 34.1 Concent Red Cell Distribution Width 14.1 Platelet Count 108 Mean Platelet Volume 9.2 Neutrophils (%) (Auto) 83.2 Lymphocytes (%) (Auto) 9.9 Monocytes (%) (Auto) 6.2 Eosinophils (%) (Auto) 0.1 Basophils (%) (Auto) 0.6 Neutrophils # (Auto) 8.6 Lymphocytes # (Auto) 1.0 Monocytes # (Auto) 0.6 Eosinophils # (Auto) 0.0 Basophils # (Auto) 0.1 CBC Comment AUTO DIFF Differential Total Cells 100 Counted Neutrophils % (Manual) 93 Lymphocytes % 5 Monocytes % 2 Neutrophils # (Manual) 9.7 Differential Comment FINAL DIFF MANUAL Toxic Vacuolation PRESENT Platelet Estimate LOW Platelet Morphology Comment NORMAL Crossmatch Leukocyte-Reduced Red Blood Cells Test 10/05/16 17:50 White Blood Count 9.7 Red Blood Count 4.25 Hemoglobin 12.6 Hematocrit 37.8 Mean Corpuscular Volume 89.1 Mean Corpuscular Hemoglobin 29.6 Mean Corpuscular Hemoglobin 33.2 Concent Red Cell Distribution Width 14.2 Platelet Count 121 Mean Platelet Volume 9.2 Neutrophils (%) (Auto) 80.8 Lymphocytes (%) (Auto) 9.2 Monocytes (%) (Auto) 9.9 Eosinophils (%) (Auto) 0.0 Basophils (%) (Auto) 0.1 Neutrophils # (Auto) 7.8 Lymphocytes # (Auto) 0.9 Monocytes # (Auto) 1.0 Eosinophils # (Auto) 0.0 Basophils # (Auto) 0.0 CBC Comment DIFF FINAL Differential Comment Sodium Level 141 Potassium Level 3.4 Chloride Level 105 Carbon Dioxide Level 27.9 Anion Gap 8 Blood Urea Nitrogen 15 Creatinine 0.52 Estimat Glomerular Filtration 116 Rate Random Glucose 157 Calcium Level 7.9 Result Diagram: 10/05/16 1750 10/05/16 1750 Assessment and Plan Assessment and Plan NEURO: Acute R temporal lobe hemorrhage with edema (on admission) Right occipitotemporal mass 5x 3 cm on MRI Pathology : Glioblastoma multiforme, WHO IV s/p craniotomy with resection right temporal lobe mass 10/05/16 (Dr. Ibrahim) Schizophrenia Anxiety MRI with contrast 09/24/16 shows Right occipitotemporal mass 5x 3 cm on MRI ? Glioma s/p R temporal lobe biopsy 09/28/16 (Dr Ibrahim) Pathology demonstrated WHO grade IV glioblastoma multiforme Keppra 500 mg by mouth twice a day for seizure prophylaxis Continue Decadron 10 mg IV every 6 hours post-op CT brain to be performed Monitor SHERIDAN output. Previously on Haldol 2 mg IV every 4 hours when necessary agitation which remains on the MAR if needed Lortab/Morphine as needed for pain Neurology Dr. Chung following Neurosurgery following, Dr. Ibrahim RESP: Acute respiratory failure (resolved) Right lower lobe pulmonary embolism h/o Tobacco abuse Intubated earlier this admission 09/24/16 for airway protection and obtaining an MRI. Self extubated 09/25/16 Now on nasal cannula which can be weaned to maintain sat greater than 92% IS q 1 hour awake. Albuterol every 2 hours when necessary CTA 09/25/16 RLL pulmonary embolism. Heparin drip for PE on hold s/p neurosurgery CV: Paroxysmal atrial fibrillation (currently in sinus rhythm) Hypertension Type II NSTEMI on admission ?Takotsubo cardiomyopathy (EF 30-35% with unknown baseline) She received aspirin 325 in the ED on admission but was not a candidate for subsequent ASA due to discovery of ICH. Echo 09/23 showed EF 30-35% ?takotsubo syndrome vs CAD. Monitor HR and BP keep MAP>65mmHg Evaluated by Cards- Dr. Park who recommends medical management Coreg 6.25 mg by mouth twice a day Norvasc 5 mg by mouth daily GI: Regular diet ordered per neurosurgery. Cleared by speech for regular diet . Protonix for GI prophylaxis. FEN/RENAL: 0.9 NaCl with 20 mg of KCl per liter at 100 mL per hour. Monitor renal function, Monitor I/O's, electrolytes replacement per protocol. Remove Armstrong in am. ID: Received vancomycin director operations to OR. Perioperative cefazolin. HEME: WHO IV glioblastoma Multiforme RLL Pulmonary embolism Heme oncology is following. Now s/p resection of mass. Treatment with +/- Temodar and radiation per oncology. Has been evaluated by radiation oncology, Dr. Conner. Off anticoagulants due to hemorrhagic brain mass male status post resection. s/p IVC filter placement 09/27/[address] Canales (IR) ENDO: Random cortisol appropriate, hemoglobin A1c 5.3 TSH is normal. Low-dose insulin sliding scale while on steroids. Will space Accu-Cheks to every 6 hours. PROPH: SCDs for DVT prophylaxis. IVC filter in place. Anticoagulants on hold status post neurosurgery. Protonix 40 mg po/IV daily for stress ulcer prophylaxis. ACCESS: Peripheral IV providing adequate access at this time. Right radial art line placed in OR 10/05/16 #1 Palliative care medicine following. Level 3 Isabel Butts MD Oct 05, 2016 18:56
--- NOTE | 2016-10-05 19:40 | RADRPT ---
EXAM DATE/TIME: 10/05/2016 19:09 [place] COMPARISON: CT BRAIN W/O CONTRAST, September 26, 2016, 8:07. INDICATIONS : Post op brain surgery and cephalic drain placement. RADIATION DOSE: 45.06 CTDIvol (mGy) MEDICAL HISTORY : Stroke. Cardiovascular disease Cerebrovascular disease. SURGICAL HISTORY : Hysterectomy. Recent brain surgery and drain placement/ ENCOUNTER: Subsequent ACUITY: 1 day PAIN SCALE: Non-responsive LOCATION: cranial TECHNIQUE: Multiple contiguous axial images were obtained of the head. Using automated exposure control and adj ustment of the mA and/or kV according to patient size, radiation dose was kept as low as reasonably a chievable to obtain optimal diagnostic quality images. FINDINGS: Postsurgical changes following drain placement in the right temporal occipital region are noted. Ther e is no evidence of increasing edema or additional hemorrhage. Extra-axial air is identified along th e frontal lobe. CSF spaces are less stable. Left cerebral hemisphere brainstem and cerebellum are stable. CONCLUSION: Expected postsurgical changes following right-sided drain placement. No findings to suggest significant acute hemorrhage, edema or mass effect. Haja Barker MD on October 05, 2016 at 19:36 Board Certified Radiologist. This report was verified electronically.
[2016-10-05] MEDS ORDERED: RESP: ALBUTEROL 2.5 MG/3 ML NEB (PRN) NEB (19:45)
[2016-10-05 20:00] VITALS: BP 115/50; PULSE 56; PULSE 58; RESP 15; TEMP 97.3; O2SAT 95
[2016-10-05] MEDS: ceFAZolin 2 GM PREMIX 50 ML IV SCH (20:03)
[2016-10-05] MEDS: DOCUSATE SODIUM 50 MG/SENNA 8.6 MG TAB PO SCH (20:04)
[2016-10-05] MEDS: DOCUSATE SODIUM 100 MG CAP PO SCH (20:04)
[2016-10-05] MEDS: SODIUM CHLORIDE 0.9% FLUSH 5 ML FLUSH IVF SCH (20:04)
[2016-10-05] MEDS: hydrALAZINE HCL 20 MG/ML VIAL IV PUSH PRN (20:21)
--- NOTE | 2016-10-05 20:48 | PD.OP ---
Operative Report Date of Surgery: Oct 05, 2016 Preoperative Diagnosis: right temporal glioblastoma multiforme Postoperative Diagnosis: right temporal glioblastoma multiforme Procedure: Stereotactic inage-guided right temporal craniotomy with resection of glioblastoma multiforme. Microsurgical dissection Anesthesia: general Surgeon: Dinh Ibrahim Dean Of Graduate Studies(s): Ellie Perez Operation and Findings: INDICATIONS FOR THE PROCEDURE Ms Bay is a 71-year-old female with history of a glioblastoma multiforme by recent biopsy. She was found to have a left temporal lobe ring-enhancing mass with severe edema, causing mass effect on the underlying brain. Surgical resection was indicated. I have discussed the [id number] details of the procedure, its indications, alternatives, risks and potential complications with the patient including but not limited to the risk of infection, hemorrhage, paralysis, stroke, heart attack, even vegetative state or even the possibility of . The patient fully understands. All her questions were answered. No guarantees were given. She voiced requesting the procedure and provided informed consent. She has been offered the alternative of not having aggressive management. DETAILS OF THE SURGICAL PROCEDURE Prior to the surgery the patient underwent MRI of the brain according to the stereotactic protocol. The information was transferred to the workstation located in the operative suite. Preoperative registration was performed. The patient was then transferred to the operating room. After induction of general anesthesia, endotracheal intubation was done. A Armstrong catheter, bilateral KACEY hose, sequential compression devices were placed and kept throughout the procedure. The patient was positioned supine on a 30/80 table over gel mattress with her head in rigid fixation using the [place] knitting machine fixer head. All pressure points were carefully padded with egg crate mattress. The eyes were tapped shut after ointment was applied by the anesthesiologist to prevent corneal abrasion. A John hugger was placed over the exposed lower body to maintain control of the core body temperature. The electrophysiological team placed the needles and electrodes in their proper location and baseline SSEP's evoked potentials were registered. The rigid reference body was attached to the knitting machine fixer head and intraoperative registration was performed with a laser. The right temporal parietal area was shaved, prepped and draped in the usual sterile fashion. A standard horseshoe incision was outlined on the scalp and infiltrated with 1% lidocaine with epinephrine. The skin incision was made with a #10 blade down to the level of the periosteum. Micah clips were applied to the scalp. Using a Bovie, the temporalis fascia and muscle were incised and a subperiosteal dissection was performed reflecting the scalp flap inferiorly. The scalp was covered with a moist sponge and held in position using fish hooks. The TPS drill was brought to the field and a bur hole was made in the posterior temporal region using the craniotome attachment. Then, using the footplate attachment, a craniotomy flap was elevated. The dura was bulging, with mass effect due to the underlying tumor. The tumor was identified with the brainlab, and the dura was opened with a 15 blade and metzembaun sissors and retracted with 4-0 Neurolon sutures attached to the fascia. At this point of the procedure the operative microscope was draped in the usual sterile fashion and brought to the field. The rest of the surgical procedure was performed using microdissection technique with the exception of the closure. Under the operative microscope a small corticotomy was performed and the mass was resected using microsurgical dissection technique, with the micro-bipolar forceps, microscissors, micro-suction, and gentle irrigation. The specimen was sent to the lab for histological analysis. A gross total resection of the mass was achieved. Appropriate hemostasis was then secured using the bipolar paint supervisor. Then the incision was irrigated with saline solution. The dural edges were tacked to the bone. The craniotomy flap was then repositioned and secured in place using Striker plates and screws. A 7 millimeter Raj-Pino drain was then left in the subgaleal space and externalized through a separate stab incision. The incision was then closed in layers. 0 Vicryl in interrupted sutures were used to close the temporalis fascia. The galea was closed with interrupted 3-0 Vicryl. [place] were applied to the skin. The drain was secured with a 3-0 nylon. At the end of the procedure, the sponge, needle and instrument counts were all correct. Estimated blood loss was less than 100 cc. No blood transfusion was given. No intraoperative complications occurred. The patient received prophylactic antibiotics. The patient was then transferred to the recovery room in stable condition. COMPLICATIONS None [place],Dinh Reza MD Oct 05, 2016 20:48
[2016-10-05 22:00] VITALS: PULSE 57
[2016-10-06] VITALS (17 sets, daily range): BP systolic 105–153; BP diastolic 55–66; PULSE 47–76; RESP 10–23; TEMP 97.4–98.5; O2SAT 93–100
[2016-10-06] MEDS: levETIRAcetam INJ 500 MG in SODIUM CHLORIDE 0.9% INJ 100 ML IV SCH ×2 (01:56→14:39)
[2016-10-06] MEDS: INSULIN ASPART SUPPLEMENTAL SCALE SQ SCH ×6 (02:18→22:07)
[2016-10-06] MEDS: CHLORHEXIDINE GLUCONATE 2 % 1 PACK (2 CLOTHS) TOP SCH (03:02)
[2016-10-06] MEDS: ceFAZolin 2 GM PREMIX 50 ML IV SCH ×2 (04:05→13:15)
[2016-10-06 04:57] LABS: BICARBONATE 24.7 MEQ/L (21.0-32.0); MAGNESIUM 2.2 MG/DL (1.5-2.5); POTASSIUM 3.9 MEQ/L (3.5-5.1)
[2016-10-06] MEDS: DEXAMETHASONE SOD PHOS 4 MG/ML VIAL IV PUSH SCH ×3 (05:04→17:17)
[2016-10-06 05:15] LABS: AUTOMATED NEUTROPHIL # 13.8 TH/MM3 (1.8-7.7); BASOPHIL % 0.3 % (0.0-2.0); HEMATOCRIT 36.8 % (35.0-46.0); HEMO FLAGS AUTO DIFF; LYMPHOCYTE # 0.9 TH/MM3 (1.0-4.8); MEAN CELL VOLUME 88.2 FL (80.0-100.0); MEAN CORPUSCULAR HEMOGLOBIN 29.7 PG (27.0-34.0); MEAN CORPUSCULAR HGB CONC 33.7 % (32.0-36.0); NEUT % 87.7 % (16.0-70.0); PLATELET COUNT 87 TH/MM3 (150-450); RED BLOOD COUNT 4.17 MIL/MM3 (4.00-5.30); RED CELL DISTRIBUTION WIDTH 14.1 % (11.6-17.2); WHITE BLOOD COUNT 15.7 TH/MM3 (4.0-11.0)
[2016-10-06 07:45] LABS: PLATELET ESTIMATE SMEAR LOW (NORMAL); PLATELET MORPHOLOGY NORMAL (NORMAL); SCAN/DIFF AUTO DIFF CONFIRMED
[2016-10-06] MEDS: amLODIPine BESYLATE 5 MG TAB PO SCH (08:07)
[2016-10-06] MEDS: CARVEDILOL 6.25 MG TAB PO SCH ×2 (08:07→19:43)
[2016-10-06] MEDS: SODIUM CHLORIDE 0.9% FLUSH 5 ML FLUSH IV FLUSH SCH ×2 (08:07→19:43)
[2016-10-06] MEDS: levETIRAcetam 500 MG TAB PO SCH ×2 (08:07→19:43)
[2016-10-06] MEDS: DOCUSATE SODIUM 100 MG CAP PO SCH ×2 (08:07→19:43)
[2016-10-06] MEDS: SODIUM CHLORIDE 0.9% FLUSH 5 ML FLUSH IVF SCH ×2 (08:07→19:43)
[2016-10-06] MEDS: PANTOPRAZOLE SODIUM 40 MG VIAL IVP SCH (08:07)
[2016-10-06] MEDS: PANTOPRAZOLE SOD 40 MG DELAYED RELEASE TAB PO SCH ×2 (08:07)
--- NOTE | 2016-10-06 09:21 | HHI.CCPN ---
Subjective Remarks/Hospital Course 10/05: 71 yo WF with past medical history of schizophrenia, paroxysmal atrial fibrillation, anxiety with panic attacks who was originally admitted to [facility] 09/23 with a one-week history of paranoia and hallucinations and bifrontal headache.. Her workup revealed a CT brain that showed a small focal hemorrhage in the right temporal lobe with a large amount of vasogenic edema. MRI with contrast 09/24/16 shows Right occipitotemporal mass 5x 3 cm concerning for Glioma. She underwent stereotactic biopsy right temporal lobe mass 09/28/[address] Ibrahim. Pathology demonstrated WHO IV Glioblastoma Multiforme. She was evaluated by heme oncology who recommended resection +/-Temodar and radiation. Today she has undergone R temporal craniotomy with R temporal lobe mass resection. A SHERIDAN remains in place which has had about 65 mL of sanginous output. In the OR she was intubated with 2 Yuan without difficulty. Received Keppra 500 mg, Decadron 10 mg IV, 1500 crystalloid. Urine output was 1500 and EBL was 100 mL. She has been extubated and is in PACU wth sats 97% on 3 L NC. BP is 119/53, she is in sinus rhythm in 50s, BP 119/53. She is alert, oriented and following commands with all extremities. She is to be admitted to [facility] for close postoperative neuro monitoring. Critical care medicine has been re- consulted by Dr. Ibrahim to assist with management. Her hospital course has previously been complicated by right lower lobe pulmonary embolism on CT . BLE U/s was negative 09/23. She underwent retrievable IVC filter placement . 3/: Resting comfortably in bed. Complaining of minimal headache. Denies any shortness of breath or chest pain. Denies any nausea. Objective Vital Signs Date Time Temp Pulse Resp B/P Pulse Ox O2 Delivery O2 Flow Rate FiO2 10/06/16 06:00 47 10/06/16 04:00 98.3 12 134/63 93 Arterial Line 10/05/16 19:00 Nasal Cannula 3 10/02/16 10:13 21 Intake and Output 10/05/16 10/05/16 10/06/16 08:00 16:00 00:00 Intake Total 0 ml 1990 ml Output Total 2925 ml Balance 0 ml -935 ml Result Diagram: 10/06/16 0418 10/06/16 0418 Imaging Last Impressions Abdomen X-Ray 09/27/16 1500 Signed Impressions: Service Date/Time: Tuesday, September 27, 2016 15:03 - CONCLUSION: 1. There is an IVC filter present overlying the right aspect of the L2 and L3 vertebral bodies. Otherwise, no radiopaque foreign body is seen. 2. Otherwise, no acute finding is visualized. Bon Carbajal MD IVC Filter Placement X-Ray 09/27/16 0000 Signed Impressions: Service Date/Time: Tuesday, September 27, 2016 13:13 - CONCLUSION: Uncomplicated inferior vena cava filter placement as above. This is a retrievable device and can be retrieved up to one year from its date of placement. Flynn Canales Jr., MD Head CT 09/26/16 0600 Signed Impressions: Service Date/Time: Monday, September 26, 2016 08:07 - CONCLUSION: No significant change Bon Iyer MD Chest X-Ray 09/26/16 0600 Signed Impressions: Service Date/Time: Monday, September 26, 2016 03:22 - CONCLUSION: No acute disease. Bon Garcia MD Chest CT 09/25/16 0000 Signed Impressions: Service Date/Time: Sunday, September 25, 2016 16:38 - CONCLUSION: 1. Positive for pulmonary embolic disease. 2. No evidence for metastatic disease to the thorax. Eleuterio Pyle MD Abdomen/Pelvis CT 09/25/16 0000 Signed Impressions: Service Date/Time: Sunday, September 25, 2016 16:38 - CONCLUSION: 1. Positive for pulmonary embolus right lower lobe. 2. No evidence for metastatic disease within the abdomen and pelvis. Eleuterio Pyle MD Neck Magnetic Resonance Angiography 09/24/16 0000 Signed Impressions: Service Date/Time: Saturday, September 24, 2016 14:31 - CONCLUSION: Normal examination for a patient of this age. Eleuterio Pyle MD Lower Extremity Ultrasound 09/23/16 0000 Signed Impressions: Service Date/Time: Friday, September 23, 2016 11:17 - CONCLUSION: Negative exam with no evidence of deep venous thrombosis. Alo Barton MD Head Magnetic Resonance Angiography 09/23/16 0000 Signed Impressions: Service Date/Time: Friday, September 23, 2016 09:52 - CONCLUSION: Significant intracranial atherosclerotic disease, otherwise negative. Ciaran Davis MD FACR Brain MRI 09/23/16 0000 Signed Impressions: Service Date/Time: Friday, September 23, 2016 09:52 - CONCLUSION: Abnormality in the right parietal occipital region that does show some blood clots and vasogenic edema. This probably represents an ischemic event; however, the amount of vasogenic edema is concerning. MRI with contrast would be of benefit when the patient is clinically stable. Ciaran Davis MD FACR Objective Remarks GENERAL: Well-nourished, well-developed 71-year-old elderly female who is laying in PACU bed. SKIN: Warm and dry. No rash. HEAD: Normocephalic. There is a circumferential stockinette dressing in place over her head. SHERIDAN drain is in place with some sanguinous output. EYES: Pupils are 2 mm and reactive bilaterally. No scleral icterus. No injection or drainage. ENT: No nasal bleeding or discharge. Mucous membranes pink and moist. NECK: Trachea midline. No JVD. CARDIOVASCULAR: Regular rhythm, sinus rhythm. No murmurs rubs or gallops. RESPIRATORY: Clear to auscultation bilaterally without wheezes Rales or rhonchi. GASTROINTESTINAL: Abdomen soft, non-tender, nondistended. Bowel sounds present. : Armstrong in place with light yellow urine output. MUSCULOSKELETAL: Extremities without clubbing, cyanosis. There is 2+ bipedal edema. No leg warmth or palpable cords. NEUROLOGICAL: Awake and alert. No obvious cranial nerve deficits. She is oriented to self, month, year, [facility]. Normal speech. No facial droop. Moves all extremities to command. Lifts bilateral hands off bed with no pronator drift. Strength 5 out of 5 bilateral lower extremities. A/P Assessment and Plan NEURO: Acute R temporal lobe hemorrhage with edema (on admission) Right occipitotemporal mass 5x 3 cm on MRI Pathology : Glioblastoma multiforme, WHO IV s/p craniotomy with resection right temporal lobe mass 10/05/16 (Dr. Ibrahim) Schizophrenia Anxiety MRI with contrast 09/24/16 shows Right occipitotemporal mass 5x 3 cm on MRI ? Glioma s/p R temporal lobe biopsy 09/28/16 (Dr Ibrahim) Pathology demonstrated WHO grade IV glioblastoma multiforme Keppra 500 mg by mouth twice a day for seizure prophylaxis Continue Decadron 10 mg IV every 6 hours post-op CT brain to be performed Monitor SHERIDAN output. Previously on Haldol 2 mg IV every 4 hours when necessary agitation which remains on the MAR if needed Lortab/Morphine as needed for pain Neurology Dr. Chung following Neurosurgery following, Dr. Ibrahmi RESP: Acute respiratory failure (resolved) Right lower lobe pulmonary embolism h/o Tobacco abuse Intubated earlier this admission 09/24/16 for airway protection and obtaining an MRI. Self extubated 09/25/16 Now on nasal cannula which can be weaned to maintain sat greater than 92% IS q 1 hour awake. Albuterol every 2 hours when necessary CTA 09/25/16 RLL pulmonary embolism. Heparin drip for PE on hold s/p neurosurgery CV: Paroxysmal atrial fibrillation (currently in sinus rhythm) Hypertension Type II NSTEMI on admission ?Takotsubo cardiomyopathy (EF 30-35% with unknown baseline) She received aspirin 325 in the ED on admission but was not a candidate for subsequent ASA due to discovery of ICH. Echo 09/23 showed EF 30-35% ?takotsubo syndrome vs CAD. Monitor HR and BP keep MAP>65mmHg Evaluated by Cards- Dr. Park who recommends medical management Coreg 6.25 mg by mouth twice a day Norvasc 5 mg by mouth daily GI: Regular diet ordered per neurosurgery. Cleared by speech for regular diet . Protonix for GI prophylaxis. FEN/RENAL: 0.9 NaCl with 20 mg of KCl per liter at 100 mL per hour. Monitor renal function, Monitor I/O's, electrolytes replacement per protocol. Remove Armstrong in am. ID: Received vancomycin education research analyst to OR. Perioperative cefazolin. HEME: WHO IV glioblastoma Multiforme RLL Pulmonary embolism Heme oncology is following. Now s/p resection of mass. Treatment with +/- Temodar and radiation per oncology. Has been evaluated by radiation oncology, Dr. Conner. Off anticoagulants due to hemorrhagic brain mass male status post resection. s/p IVC filter placement 09/27/[address] Canales (IR) ENDO: Random cortisol appropriate, hemoglobin A1c 5.3 TSH is normal. Low-dose insulin sliding scale while on steroids. Will space Accu-Cheks to every 6 hours. PROPH: SCDs for DVT prophylaxis. IVC filter in place. Anticoagulants on hold status post neurosurgery. Protonix 40 mg po/IV daily for stress ulcer prophylaxis. ACCESS: Peripheral IV providing adequate access at this time. Right radial art line placed in OR 10/05/16 Palliative care medicine following. Level 2 Hill Mckeon MD Oct 06, 2016 09:21
--- NOTE | 2016-10-06 09:52 | HHI.NSPN ---
(Joanne Mariano) Note Status Status: Progress Note (Joanne Mariano) Interval History Interval History Ms. Bay is a 71 year old female who presented to [facility] with acute delirium. She had reported peopler were coming to her house, she was having panic attacks. She was brought to [place] by her family member. A CT Brain showed a small focal hemorrhage in right temporal lobe with large amount of vasogenic edema. No known history of brain masses or tumors. She also reports of recently having headaches, as well as some weakness on the left side. 09/24/16: Came to evaluate pt but off the floor for MRI for prolonged period of time. Called MRI and pt pulled out IV and is agitated and tech states she may need to be sedated and intubated for MRI as she is not going to hold still and lost IV access for contrast MRI. 09/25/16: Pt sedated on Diprivan and Fentanyl drips. Intubated. Opens eyes when stimulated. Follows simple commands. 09/26/16: MRI Brain w/contrast shows underlying mass. She also now with DVT/PE on heparin drip. Currently on soft restraints. Oriented, and follows simple commands. No family at bedside. 09/27: drowsy on precedex due to agitation. we had discussed with her daughter who is POA over the phone, she is requesting for a needle bx. 09/29: POD 1 s/p needle biopsy of brain lesion, frz section reveals glioma. Currently awake, eating her breakfast. 09/30: POD 2, continues to do well, denies surgical pain, moves all four extremities, oriented x 3 10/01: POD 3, out of unit, she has no complaints, would like to leave hospital soon. Final patho reprots GBM 10/02: POD 4, denies headaches, nausea, vomiting, seizures. 10/03: step son in law in room, pt without clinical changes overnight, PT in room to ambulate 10/04: for resection of GBM tomorrow 10/06: POD 1 s/p right craniotomy for resection of GBM, currently doing well, denies any significant surgical pain, denies any focal weakness, nausea, vomiting. (Joanne Mariano) Labs, Micro, & Vital Signs Results Date Time Temp Pulse Resp B/P Pulse Ox O2 Delivery O2 Flow Rate FiO2 10/06/16 06:00 47 10/06/16 04:00 52 10/06/16 04:00 98.3 52 12 134/63 93 Arterial Line 10/06/16 02:00 55 10/06/16 00:00 98.1 52 10 127/56 96 10/06/16 00:00 52 10/05/16 22:00 57 10/05/16 20:00 58 10/05/16 20:00 97.3 56 15 115/50 95 Automatic Cuff 10/05/16 19:00 131/72 97 Nasal Cannula 3 130/57 10/05/16 18:45 97.6 60 15 126/69 97 Nasal Cannula 3 125/54 10/05/16 18:30 56 15 124/66 97 Nasal Cannula 3 121/51 10/05/16 18:15 57 15 133/69 97 Nasal Cannula 3 122/53 10/05/16 18:00 58 15 132/71 96 Nasal Cannula 3 123/58 10/05/16 17:45 56 15 142/78 96 Nasal Cannula 3 128/54 10/05/16 17:30 97.5 54 18 174/91 95 Nasal Cannula 3 145/73 10/05/16 11:15 95.8 58 18 139/72 98 10/06/16 07:00 Intake Total 2790 ml Output Total 3365 ml Balance -575 ml Constitutional Vital Signs Date Time Temp Pulse Resp B/P Pulse Ox O2 Delivery O2 Flow Rate FiO2 10/06/16 06:00 47 10/06/16 04:00 52 10/06/16 04:00 98.3 52 12 134/63 93 Arterial Line 10/06/16 02:00 55 10/06/16 00:00 98.1 52 10 127/56 96 10/06/16 00:00 52 10/05/16 22:00 57 10/05/16 20:00 58 10/05/16 20:00 97.3 56 15 115/50 95 Automatic Cuff 10/05/16 19:00 131/72 97 Nasal Cannula 3 130/57 10/05/16 18:45 97.6 60 15 126/69 97 Nasal Cannula 3 125/54 10/05/16 18:30 56 15 124/66 97 Nasal Cannula 3 121/51 10/05/16 18:15 57 15 133/69 97 Nasal Cannula 3 122/53 10/05/16 18:00 58 15 132/71 96 Nasal Cannula 3 123/58 10/05/16 17:45 56 15 142/78 96 Nasal Cannula 3 128/54 10/05/16 17:30 97.5 54 18 174/91 95 Nasal Cannula 3 145/73 10/05/16 11:15 95.8 58 18 139/72 98 10/06/16 07:00 Intake Total 2790 ml Output Total 3365 ml Balance -575 ml (Joanne Mariano) Review of Systems/Exam Exam Ms. Bay is alert and oriented x 4, follows commands well. CN: Pupils 4 mm equal, EOMs grossly intact. Facial symmetric. Tongue midline. Neck: no meningismus or nuchal rigidity Motor: moves all four extremities Plantars downgoing b/l Cerebellar: grossly intact finger to nose b/l Heart: NRS Lung: clear b/l (Joanne Mariano) Medications Current Medications Current Medications Medications (Trade) Dose Ordered Sig/Hradeep Route PRN Reason Start Time Stop Time Status Last Admin Dose Admin Dextrose (D50w (Vial) Inj) 25 ml UNSCH PRN IV PUSH HYPOGLYCEMIA-SEE COMMENTS 09/23/16 03:00 Glucagon (Glucagon Inj) 1 mg UNSCH PRN OTHER HYPOGLYCEMIA-SEE COMMENTS 09/23/16 03:00 Insulin Aspart (NovoLOG SUPPLEMENTAL SCALE) 1 Q4H SQ 09/23/16 03:00 10/04/16 15:00 Hydralazine HCl (Apresoline Inj) 10 mg Q4H PRN IV PUSH SBP >160 09/23/16 03:30 10/05/16 20:21 Labetalol HCl (Trandate Inj) 10 mg Q4H PRN IV PUSH SBP >160 09/23/16 03:30 IV Flush (NS Flush) 2 ml UNSCH PRN IV FLUSH FLUSH AFTER USING IV ACCESS 09/23/16 03:30 10/04/16 06:16 IV Flush (NS Flush) 2 ml BID IV FLUSH 09/23/16 09:00 10/06/16 08:07 Ondansetron HCl (Zofran Inj) 4 mg Q6H PRN IV NAUSEA OR VOMITING 09/23/16 03:30 10/05/16 20:21 Miscellaneous Information 1 Q361D XX 09/23/16 03:30 09/23/16 03:30 Chlorhexidine Gluconate (Chlorhexidine 2% Cloth) Taper DAILY@04 TOP 09/23/16 04:00 09/19/17 03:59 10/06/16 03:02 Chlorhexidine Gluconate (Chlorhexidine 2% Cloth) 3 pack UNSCH PRN TOP HYGIENIC CARE 09/23/16 03:30 Dexamethasone Sodium Phosphate (Decadron Inj) 10 mg Q6HR IV PUSH 09/23/16 13:15 10/06/16 05:04 Haloperidol Lactate (Haldol Inj) 2 mg Q6H PRN IV PUSH AGITATION AND/OR HALLUCINATION 09/24/16 01:00 09/24/16 05:36 Senna/Docusate Sodium (Yocasta-Colace) 1 tab HS PO 09/27/16 21:00 10/05/16 20:04 Bisacodyl (Dulcolax Supp) 10 mg DAILY PRN [place] CONSTIPATION 09/28/16 14:30 Pantoprazole Sodium (Protonix) 40 mg DAILY PO 09/28/16 15:30 10/06/16 08:07 Calcium Gluconate (Calcium Gluconate Inj) 1 gm UNSCH PRN IV SEE LABEL COMMENTS 09/28/16 14:30 Acetaminophen (Tylenol) 650 mg Q4H PRN PO TEMP>101F, PAIN 1-10, HEADACHE 09/28/16 14:30 10/05/16 00:14 Carvedilol (Coreg) 6.25 mg Q12HR PO 09/29/16 21:00 10/06/16 08:07 Levetriacetam (Keppra) 500 mg Q12HR PO 09/30/16 21:00 10/06/16 08:07 Amlodipine Besylate (Norvasc) 5 mg DAILY PO 10/03/16 09:00 10/06/16 08:07 Enalaprilat 1.25 mg 1.25 mg Q6H PRN IV PUSH SBP>160, DBP>90 10/02/16 23:00 10/04/16 21:12 Lactated Ringer's 1,000 ml @ 30 mls/hr Q24H IV 10/05/16 11:30 10/05/16 11:30 Sodium Chloride 500 ml @ 30 mls/hr [id number] IV 10/05/16 11:30 10/06/16 11:29 Potassium Chloride/Sodium Chloride (NS + KCl 20 Meq Inj) 1,000 ml @ 100 mls/hr Q10H IV 10/05/16 14:34 10/05/16 23:43 IV Flush (NS Flush) 2 ml UNSCH PRN IVF FLUSH AFTER USING IV ACCESS 10/05/16 14:45 IV Flush 2 ml 2 ml BID IVF 10/05/16 21:00 Cefazolin Sodium/ Dextrose 50 ml @ 100 mls/hr Q8H IV 10/05/16 21:00 10/06/16 13:29 10/06/16 04:05 Levetriacetam/ Sodium Chloride (Keppra Inj/NS Inj) 105 ml @ 400 mls/hr Q12H IV 10/05/16 14:45 10/06/16 01:56 Bisacodyl (Dulcolax Supp) 10 mg DAILY PRN [place] CONSTIPATION 10/05/16 14:45 Docusate Sodium (Colace) 100 mg BID PO 10/05/16 21:00 10/06/16 08:07 Pantoprazole Sodium (Protonix) 40 mg DAILY PO 10/06/16 09:00 Pantoprazole Sodium (Protonix Inj) 40 mg DAILY IVP 10/06/16 09:00 Ondansetron HCl (Zofran Inj) 4 mg Q6H PRN IV NAUSEA OR VOMITING 10/05/16 14:45 Calcium Gluconate 1 gm 1 gm UNSCH PRN IV SEE LABEL COMMENTS 10/05/16 14:45 Potassium Chloride 100 ml @ 50 mls/hr UNSCH PRN IV POTASSIUM LESS THAN 4 10/05/16 14:45 Magnesium Sulfate/ Sodium Chloride (Magnesium Sulfate Inj/NS Inj) 108 ml @ 108 mls/hr UNSCH PRN IV MAGNESIUM LESS THAN 2 10/05/16 14:45 Acetaminophen/ Hydrocodone Bitart (Mondovi 10-325 Mg) 1 tab Q4H PRN PO PAIN SCALE 1 TO 5 10/05/16 14:45 Acetaminophen/ Hydrocodone Bitart (Mondovi 10-325 Mg) 2 tab Q4H PRN PO PAIN SCALE 6 TO 10 10/05/16 14:45 Morphine Sulfate (Morphine Inj) 2 mg Q2H PRN IV PUSH PAIN SCALE 1 TO 6 10/05/16 14:45 10/05/16 20:05 Morphine Sulfate (Morphine Inj) 4 mg Q2H PRN IV PUSH PAIN SCALE 7 TO 10 10/05/16 14:45 Acetaminophen (Tylenol) 650 mg Q4H PRN PO TEMPERATURE > 101.5 F 10/05/16 14:45 Miscellaneous Information ALL NURSING DEPARTME... UNSCH PRN XX SEE LABEL COMMENTS 10/05/16 17:32 10/06/16 17:31 (Joanne Mariano) Medical Decision Making MDM Remarks 71 y/o female brought by her family due to delirium and anxiety MRI Brain shows right temporal lobe mass, s/p needle biopsy of brain mass, frozen section anaplastic glioma, final pathology reveals Glioblastoma Multiforme s/p craniotomy for resection of right temporal GBM 10/05/16, neuro stable DVT, s/p placement of IVC filter (Joanne Mariano) Plan Plan Remarks doing well cont therapy, ok OOB cont decadron radiation-oncology and oncology (Joanne Mariano) Attending Statement The exam, history, and the medical decision-making described in the above note were completed with the assistance of the mid-level provider. I reviewed and agree with the findings presented. I attest that I had a [id number] encounter with the patient on the same day, and personally performed and documented my assessment and findings in the medical record. (Dinh Ibrahim MD) Joanne Mariano Oct 06, 2016 09:52 Dinh Ibrahim MD Oct 07, 2016 08:43
[2016-10-06] MEDS: NS + KCL 20 MEQ INJ 1,000 ML IV SCH ×2 (10:34→19:43)
[2016-10-06] MEDS: LACTATED RINGER'S 1000 ML IV SCH (11:05)
[2016-10-06 12:21] LABS: APTT (PATIENT) 20.6 SEC (24.3-30.1); INTERNATIONAL NORMALIZED RATIO 1.3 RATIO; PROTHROMBIN TIME - PATIENT 14.3 SEC (9.8-11.6)
[2016-10-06] MEDS ORDERED: SODIUM CHLOR 0.9% 250 ML INJ 250 ML IV ONE (13:15)
[2016-10-06] MEDS ORDERED: ACETAMINOPHEN 325 MG TAB PO PRN (13:15)
[2016-10-06] MEDS ORDERED: diphenhydrAMINE HCL 25 MG CAP PO PRN (13:15)
--- NOTE | 2016-10-06 13:24 | PD.ONC.PN ---
Subjective Subjective Remarks Late entry. Patient seen around 10AM. Afebrile overnight. Patient reports no pain. No bleeding. No vomiting. Objective Data Date Time Temp Pulse Resp B/P Pulse Ox O2 Delivery O2 Flow Rate FiO2 10/06/16 10:00 58 10/06/16 08:00 98.5 55 12 153/66 99 10/06/16 08:00 56 10/06/16 06:00 47 10/06/16 04:00 52 10/06/16 04:00 98.3 52 12 134/63 93 Arterial Line 10/06/16 02:00 55 10/06/16 00:00 98.1 52 10 127/56 96 10/06/16 00:00 52 10/05/16 22:00 57 10/05/16 20:00 58 10/05/16 20:00 97.3 56 15 115/50 95 Automatic Cuff 10/05/16 19:00 131/72 97 Nasal Cannula 3 130/57 10/05/16 18:45 97.6 60 15 126/69 97 Nasal Cannula 3 125/54 10/05/16 18:30 56 15 124/66 97 Nasal Cannula 3 121/51 10/05/16 18:15 57 15 133/69 97 Nasal Cannula 3 122/53 10/05/16 18:00 58 15 132/71 96 Nasal Cannula 3 123/58 10/05/16 17:45 56 15 142/78 96 Nasal Cannula 3 128/54 10/05/16 17:30 97.5 54 18 174/91 95 Nasal Cannula 3 145/73 10/06/16 10/06/16 10/06/16 07:00 15:00 23:00 Intake Total 800 ml Output Total 440 ml Balance 360 ml Result Diagram: 10/06/16 0418 10/06/16 0418 Laboratory Results Laboratory Tests Test 10/05/16 10/05/16 10/05/16 10/06/16 16:23 16:25 17:50 04:18 Crossmatch Leukocyte-Reduced Red Blood Cells Blood Bank Comment Blood Type A POSITIVE White Blood Count 9.7 TH/MM3 15.7 TH/MM3 Red Blood Count 4.25 MIL/MM3 4.17 MIL/MM3 Hemoglobin 12.6 GM/DL 12.4 GM/DL Hematocrit 37.8 % 36.8 % Mean Corpuscular Volume 89.1 FL 88.2 FL Mean Corpuscular Hemoglobin 29.6 PG 29.7 PG Mean Corpuscular Hemoglobin 33.2 % 33.7 % Concent Red Cell Distribution Width 14.2 % 14.1 % Platelet Count 121 TH/MM3 87 TH/MM3 Mean Platelet Volume 9.2 FL 9.4 FL Neutrophils (%) (Auto) 80.8 % 87.7 % Lymphocytes (%) (Auto) 9.2 % 6.0 % Monocytes (%) (Auto) 9.9 % 6.0 % Eosinophils (%) (Auto) 0.0 % 0.0 % Basophils (%) (Auto) 0.1 % 0.3 % Neutrophils # (Auto) 7.8 TH/MM3 13.8 TH/MM3 Lymphocytes # (Auto) 0.9 TH/MM3 0.9 TH/MM3 Monocytes # (Auto) 1.0 TH/MM3 0.9 TH/MM3 Eosinophils # (Auto) 0.0 TH/MM3 0.0 TH/MM3 Basophils # (Auto) 0.0 TH/MM3 0.0 TH/MM3 CBC Comment DIFF FINAL AUTO DIFF Differential Comment AUTO DIFF CONFIRMED Sodium Level 141 MEQ/L 142 MEQ/L Potassium Level 3.4 MEQ/L 3.9 MEQ/L Chloride Level 105 MEQ/L 108 MEQ/L Carbon Dioxide Level 27.9 MEQ/L 24.7 MEQ/L Anion Gap 8 MEQ/L 9 MEQ/L Blood Urea Nitrogen 15 MG/DL 17 MG/DL Creatinine 0.52 MG/DL 0.40 MG/DL Estimat Glomerular Filtration 116 ML/MIN 157 ML/MIN Rate Random Glucose 157 MG/DL 131 MG/DL Calcium Level 7.9 MG/DL 7.9 MG/DL Platelet Estimate LOW Platelet Morphology Comment NORMAL Hematology Comments Phosphorus Level 2.3 MG/DL Magnesium Level 2.2 MG/DL Test 10/06/16 11:33 Prothrombin Time 14.3 SEC Prothromb Time International 1.3 RATIO Ratio Activated Partial 20.6 SEC Thromboplast Time Fibrinogen 54 mg/dL Administered Medications Medications (Trade) Dose Ordered Sig/Hardeep Route PRN Reason Start Time Stop Time Status Last Admin Dose Admin Insulin Aspart (NovoLOG SUPPLEMENTAL SCALE) 1 Q4H SQ 09/23/16 03:00 10/04/16 15:00 Hydralazine HCl (Apresoline Inj) 10 mg Q4H PRN IV PUSH SBP >160 09/23/16 03:30 10/05/16 20:21 IV Flush (NS Flush) 2 ml UNSCH PRN IV FLUSH FLUSH AFTER USING IV ACCESS 09/23/16 03:30 10/04/16 06:16 IV Flush (NS Flush) 2 ml BID IV FLUSH 09/23/16 09:00 10/06/16 08:07 Ondansetron HCl (Zofran Inj) 4 mg Q6H PRN IV NAUSEA OR VOMITING 09/23/16 03:30 10/05/16 20:21 Miscellaneous Information 1 Q361D XX 09/23/16 03:30 09/23/16 03:30 Chlorhexidine Gluconate (Chlorhexidine 2% Cloth) Taper DAILY@04 TOP 09/23/16 04:00 09/19/17 03:59 10/06/16 03:02 Dexamethasone Sodium Phosphate (Decadron Inj) 10 mg Q6HR IV PUSH 09/23/16 13:15 10/06/16 11:12 Haloperidol Lactate (Haldol Inj) 2 mg Q6H PRN IV PUSH AGITATION AND/OR HALLUCINATION 09/24/16 01:00 09/24/16 05:36 Senna/Docusate Sodium (Yocasta-Colace) 1 tab HS PO 09/27/16 21:00 10/05/16 20:04 Pantoprazole Sodium (Protonix) 40 mg DAILY PO 09/28/16 15:30 10/06/16 08:07 Acetaminophen (Tylenol) 650 mg Q4H PRN PO TEMP>101F, PAIN 1-10, HEADACHE 09/28/16 14:30 10/05/16 00:14 Carvedilol (Coreg) 6.25 mg Q12HR PO 09/29/16 21:00 10/06/16 08:07 Levetriacetam (Keppra) 500 mg Q12HR PO 09/30/16 21:00 10/06/16 08:07 Amlodipine Besylate (Norvasc) 5 mg DAILY PO 10/03/16 09:00 10/06/16 08:07 Enalaprilat 1.25 mg 1.25 mg Q6H PRN IV PUSH SBP>160, DBP>90 10/02/16 23:00 10/04/16 21:12 Lactated Ringer's 1,000 ml @ 30 mls/hr Q24H IV 10/05/16 11:30 10/05/16 11:30 Potassium Chloride/Sodium Chloride 1,000 ml @ 100 mls/hr Q10H IV 10/05/16 14:34 10/05/16 23:43 Cefazolin Sodium/ Dextrose 50 ml @ 100 mls/hr Q8H IV 10/05/16 21:00 10/06/16 13:29 10/06/16 04:05 Levetriacetam/ Sodium Chloride (Keppra Inj/NS Inj) 105 ml @ 400 mls/hr Q12H IV 10/05/16 14:45 10/06/16 01:56 Docusate Sodium (Colace) 100 mg BID PO 10/05/16 21:00 10/06/16 08:07 Morphine Sulfate (Morphine Inj) 2 mg Q2H PRN IV PUSH PAIN SCALE 1 TO 6 10/05/16 14:45 10/05/16 20:05 Objective Remarks GENERAL: Pleasant elderly female, sitting upright in bed in [facility]. SKIN: Warm and dry. HEAD: Normocephalic. EYES: No injection or drainage. NECK: Supple, trachea midline. CARDIOVASCULAR: Regular rate and rhythm RESPIRATORY: Breath sounds equal bilaterally. No accessory muscle use. GASTROINTESTINAL: Abdomen soft, non-tender, nondistended. EXTREMITIES: No cyanosis NEUROLOGICAL: awake and alert, normal speech. Assessment/Plan Problem List: (1) Brain mass Status: Acute Plan: 10/06/16: POD #1, s/p craniotomy by NS. will transfuse platelets and cryo pathology shows Glioblastoma Multiforme. treatment would be resection +/- Temodar and radiation. will await NS decision on resection. --CT brain showed small focal hemorrhage involving right temporal lobe with prominent with vasogenic edema. Underlying neoplasm is not excluded. 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 --? plan for +biopsy vs. resection 09/28/16 by NS --CT ab/pelvis: no mets (2) Pulmonary embolism Status: Acute Plan: s/p IVC filter placement on 09/27 --CTA showed PE --u/s legs: no DVT (3) Thrombocytopenia Status: Acute Plan: --likely consumption--will transfuse to keep platelet count>100K s/p craniotomy (4) Coagulopathy Status: Acute Plan: --likely consumptive coagulopathy --transfuse to keep fibrinogen>100 Assessment 71y/o female with pulmonary embolism, admitted with AMS. h/o atrial fibrillation Attending Statement feels ok. Offer no new c/o s/p surg. await path. will start XRT and chemo as outpt. will follow. Jenniffer Ramirez Oct 06, 2016 13:24 Donis Tim MD Oct 06, 2016 23:36
--- NOTE | 2016-10-06 15:28 | RADRPT ---
EXAM DATE/TIME: 10/06/2016 14:49 [facility] COMPARISON: US LEG BILATERAL VENOUS DOPPLER, September 23, 2016, 11:17. INDICATIONS : Bilateral leg swelling. MEDICAL HISTORY : A.FIB. Schizophrenia. Pulmonary embolism. SURGICAL HISTORY : Tonsillectomy.Hysterectomy. Face lift. Right temporal craniotomy resection. ENCOUNTER: Initial ACUITY: 1 day PAIN SCORE: 3/10 LOCATION: Bilateral legs. TECHNIQUE: Venous ultrasound of the left and right leg was performed from the inguinal ligament to the proximal calf. Real-time, color Doppler and spectral tracing, compression and augmentation techniques were us ed. FINDINGS: RIGHT LEG: There is some nonocclusive thrombus in the common femoral vein . There is normal compressibility of the deep venous system from the inguinal region to the proximal calf. No echogenic clot is seen in t he lumen of the femoral, popliteal, and posterior tibial veins. There is a normal response of the ve nous system to proximal and distal augmentation and respiration. LEFT LEG: There is normal compressibility of the deep venous system from the inguinal region to the proximal ca lf. No echogenic clot is seen in the lumen of the common femoral, femoral, popliteal, and posterior tibial veins. There is a normal response of the venous system to proximal and distal augmentation an d respiration. CONCLUSION: Small focal nonocclusive thrombus involving the common femoral vein on the right. This is new from [facility] 09/23/16 exam. Ilan Fu MD on October 06, 2016 at 15:24 Board Certified Radiologist. This report was verified electronically.
[2016-10-06] MEDS: DOCUSATE SODIUM 50 MG/SENNA 8.6 MG TAB PO SCH (19:42)
[2016-10-07] VITALS (13 sets, daily range): BP systolic 110–152; BP diastolic 57–81; PULSE 55–80; RESP 11–22; TEMP 97.1–98.3; O2SAT 93–98
[2016-10-07] MEDS: DEXAMETHASONE SOD PHOS 4 MG/ML VIAL IV PUSH SCH ×4 (00:32→16:53)
[2016-10-07] MEDS: INSULIN ASPART SUPPLEMENTAL SCALE SQ SCH ×6 (01:53→23:00)
[2016-10-07] MEDS: levETIRAcetam INJ 500 MG in SODIUM CHLORIDE 0.9% INJ 100 ML IV SCH ×2 (01:53→15:41)
[2016-10-07] MEDS: CHLORHEXIDINE GLUCONATE 2 % 1 PACK (2 CLOTHS) TOP SCH ×2 (03:23→23:41)
[2016-10-07] MEDS: NS + KCL 20 MEQ INJ 1,000 ML IV SCH ×2 (04:51→15:41)
[2016-10-07 05:14] LABS: APTT (PATIENT) 21.7 SEC (24.3-30.1); INTERNATIONAL NORMALIZED RATIO 1.1 RATIO; PROTHROMBIN TIME - PATIENT 11.7 SEC (9.8-11.6)
[2016-10-07 05:30] LABS: AUTOMATED NEUTROPHIL # 16.1 TH/MM3 (1.8-7.7); BASOPHIL % 0.1 % (0.0-2.0); HEMATOCRIT 31.3 % (35.0-46.0); HEMO FLAGS DIFF FINAL; LYMPH % 4.7 % (9.0-44.0); LYMPHOCYTE # 0.8 TH/MM3 (1.0-4.8); MEAN CELL VOLUME 89.4 FL (80.0-100.0); MEAN CORPUSCULAR HEMOGLOBIN 29.9 PG (27.0-34.0); MEAN CORPUSCULAR HGB CONC 33.5 % (32.0-36.0); MONO % 3.8 % (0.0-8.0); NEUT % 91.4 % (16.0-70.0); PLATELET COUNT 100 TH/MM3 (150-450); RED CELL DISTRIBUTION WIDTH 13.9 % (11.6-17.2); WHITE BLOOD COUNT 17.6 TH/MM3 (4.0-11.0)
[2016-10-07 05:34] LABS: ALKALINE PHOSPHATASE 50 U/L (45-117); ALT (GPT) 19 U/L (10-53); ANION GAP 8 MEQ/L (5-15); AST (GOT) 10 U/L (15-37); BICARBONATE 25.2 MEQ/L (21.0-32.0); BLOOD UREA NITROGEN 18 MG/DL (7-18); CHLORIDE 109 MEQ/L (98-107); GLOMERULAR FILTRATION RATE 91 ML/MIN (>89); POTASSIUM 3.9 MEQ/L (3.5-5.1); SODIUM (NA) 142 MEQ/L (136-145); TOTAL BILIRUBIN ADULT 0.9 MG/DL (0.2-1.0)
[2016-10-07] MEDS: amLODIPine BESYLATE 5 MG TAB PO SCH (08:40)
[2016-10-07] MEDS: CARVEDILOL 6.25 MG TAB PO SCH ×2 (08:40→20:56)
[2016-10-07] MEDS: DOCUSATE SODIUM 100 MG CAP PO SCH ×2 (08:40→20:55)
[2016-10-07] MEDS: levETIRAcetam 500 MG TAB PO SCH ×2 (08:40→20:55)
[2016-10-07] MEDS: PANTOPRAZOLE SODIUM 40 MG VIAL IVP SCH (08:40)
[2016-10-07] MEDS: PANTOPRAZOLE SOD 40 MG DELAYED RELEASE TAB PO SCH ×2 (08:40)
[2016-10-07] MEDS: SODIUM CHLORIDE 0.9% FLUSH 5 ML FLUSH IV FLUSH SCH ×2 (08:41→20:57)
[2016-10-07] MEDS: SODIUM CHLORIDE 0.9% FLUSH 5 ML FLUSH IVF SCH ×2 (08:41→20:57)
[2016-10-07] MEDS ORDERED: LIDOCAINE HCL 1% 50 ML VIAL ONE (09:53)
[2016-10-07] MEDS ORDERED: LIDOCAINE 1%/EPINEPHrine 1:100,000 SOLN 30 ML VIAL ONE (09:54)
--- NOTE | 2016-10-07 10:01 | HHI.CCPN ---
Subjective Remarks/Hospital Course 10/05: 71 yo WF with past medical history of schizophrenia, paroxysmal atrial fibrillation, anxiety with panic attacks who was originally admitted [place] [facility] [place] with a one-week history of paranoia and hallucinations and bifrontal headache.. Her workup revealed a CT brain that showed a small focal hemorrhage in the right temporal lobe with a large amount of vasogenic edema. MRI with contrast 09/24/16 shows Right occipitotemporal mass 5x 3 cm concerning for Glioma. She underwent stereotactic biopsy right temporal lobe mass 09/28/[address] Ibrahim. Pathology demonstrated WHO IV Glioblastoma Multiforme. She was evaluated by heme oncology who recommended resection +/-Temodar and radiation. Today she has undergone R temporal craniotomy with R temporal lobe mass resection. A SHERIDAN remains in place which has had about 65 mL of sanginous output. In the OR she was intubated with 2 Yuan without difficulty. Received Keppra 500 mg, Decadron 10 mg IV, 1500 crystalloid. Urine output was 1500 and EBL was 100 mL. She has been extubated and is in PACU wth sats 97% on 3 L NC. BP is 119/53, she is in sinus rhythm in 50s, BP 119/53. She is alert, oriented and following commands with all extremities. She is to be admitted to [facility] for close postoperative neuro monitoring. Critical care medicine has been re- consulted by Dr. Ibrahim to assist with management. Her hospital course has previously been complicated by right lower lobe pulmonary embolism on CT . BLE U/s was negative 09/23. She underwent retrievable IVC filter placement . 3/2: Resting comfortably in bed. Complaining of minimal headache. Denies any shortness of breath or chest pain. Denies any nausea. 3/3: Resting comfortably in bed. Tolerating by mouth diet. Denies any nausea or headache. Discussed with Dr. Ibrahim who is okay with transferring patient out of ICU today. Objective Vital Signs Date Time Temp Pulse Resp B/P Pulse Ox O2 Delivery O2 Flow Rate FiO2 10/07/16 08:00 98.1 61 18 152/67 96 10/06/16 20:11 Nasal Cannula 2.00 Intake and Output 10/06/16 10/06/16 10/07/16 08:00 16:00 00:00 Intake Total 800 ml 1118 ml 343 ml Output Total 440 ml 460 ml 1020 ml Balance 360 ml 658 ml -677 ml Result Diagram: 10/07/16 0351 10/07/16 0351 Imaging Last Impressions Abdomen X-Ray 09/27/16 1500 Signed Impressions: Service Date/Time: Tuesday, September 27, 2016 15:03 - CONCLUSION: 1. There is an IVC filter present overlying the right aspect of the L2 and L3 vertebral bodies. Otherwise, no radiopaque foreign body is seen. 2. Otherwise, no acute finding is visualized. Bon Carbajal MD IVC Filter Placement X-Ray 09/27/16 0000 Signed Impressions: Service Date/Time: Tuesday, September 27, 2016 13:13 - CONCLUSION: Uncomplicated inferior vena cava filter placement as above. This is a retrievable device and can be retrieved up to one year from its date of placement. Flynn Canales Jr., MD Head CT 09/26/16 0600 Signed Impressions: Service Date/Time: Monday, September 26, 2016 08:07 - CONCLUSION: No significant change Bon Iyer MD Chest X-Ray 09/26/16 0600 Signed Impressions: Service Date/Time: Monday, September 26, 2016 03:22 - CONCLUSION: No acute disease. Bon Garcia MD Chest CT 09/25/16 0000 Signed Impressions: Service Date/Time: Sunday, September 25, 2016 16:38 - CONCLUSION: 1. Positive for pulmonary embolic disease. 2. No evidence for metastatic disease to the thorax. Eleuterio Pyle MD Abdomen/Pelvis CT 09/25/16 0000 Signed Impressions: Service Date/Time: Sunday, September 25, 2016 16:38 - CONCLUSION: 1. Positive for pulmonary embolus right lower lobe. 2. No evidence for metastatic disease within the abdomen and pelvis. Eleuterio Pyle MD Neck Magnetic Resonance Angiography 09/24/16 0000 Signed Impressions: Service Date/Time: Saturday, September 24, 2016 14:31 - CONCLUSION: Normal examination for a patient of this age. Eleuterio Pyle MD Lower Extremity Ultrasound 09/23/16 0000 Signed Impressions: Service Date/Time: Friday, September 23, 2016 11:17 - CONCLUSION: Negative exam with no evidence of deep venous thrombosis. Alo Barton MD Head Magnetic Resonance Angiography 09/23/16 0000 Signed Impressions: Service Date/Time: Friday, September 23, 2016 09:52 - CONCLUSION: Significant intracranial atherosclerotic disease, otherwise negative. Ciaran Davis MD FACR Brain MRI 09/23/16 0000 Signed Impressions: Service Date/Time: Friday, September 23, 2016 09:52 - CONCLUSION: Abnormality in the right parietal occipital region that does show some blood clots and vasogenic edema. This probably represents an ischemic event; however, the amount of vasogenic edema is concerning. MRI with contrast would be of benefit when the patient is clinically stable. Ciaran Davis MD FACR Objective Remarks GENERAL: Well-nourished, well-developed 71-year-old elderly female sitting up in bed. SKIN: Warm and dry. No rash. HEAD: Normocephalic. There is a circumferential stockinette dressing in place over her head. SHERIDAN drain is in place with some sanguinous output. EYES: Pupils are 2 mm and reactive bilaterally. No scleral icterus. No injection or drainage. ENT: No nasal bleeding or discharge. Mucous membranes pink and moist. NECK: Trachea midline. No JVD. CARDIOVASCULAR: Regular rhythm, sinus rhythm. No murmurs rubs or gallops. RESPIRATORY: Clear to auscultation bilaterally without wheezes Rales or rhonchi. GASTROINTESTINAL: Abdomen soft, non-tender, nondistended. Bowel sounds present. : Armstrong in place with light yellow urine output. MUSCULOSKELETAL: Extremities without clubbing, cyanosis. There is 2+ bipedal edema. No leg warmth or palpable cords. NEUROLOGICAL: Awake and alert. No obvious cranial nerve deficits. She is oriented to self, month, year, [facility]. Normal speech. No facial droop. Moves all extremities to command. Lifts bilateral hands off bed with no pronator drift. Strength 5 out of 5 bilateral lower extremities. A/P Assessment and Plan NEURO: Acute R temporal lobe hemorrhage with edema (on admission) Right occipitotemporal mass 5x 3 cm on MRI Pathology : Glioblastoma multiforme, WHO IV s/p craniotomy with resection right temporal lobe mass 10/05/16 (Dr. Ibrahim) Schizophrenia Anxiety MRI with contrast 09/24/16 shows Right occipitotemporal mass 5x 3 cm on MRI ? Glioma s/p R temporal lobe biopsy 09/28/16 (Dr Ibrahim) Pathology demonstrated WHO grade IV glioblastoma multiforme Keppra 500 mg by mouth twice a day for seizure prophylaxis Continue Decadron 10 mg IV every 6 hours post-op CT brain to be performed SHERIDAN drain to be removed by Dr. Ibrahim. Previously on Haldol 2 mg IV every 4 hours when necessary agitation which remains on the MAR if needed Lortab/Morphine as needed for pain Neurology Dr. Chung following Neurosurgery following, Dr. Ibrahim-OK with transferring patient out of ICU today RESP: Acute respiratory failure (resolved) Right lower lobe pulmonary embolism h/o Tobacco abuse Intubated earlier this admission 09/24/16 for airway protection and obtaining an MRI. Self extubated 09/25/16 Now on nasal cannula which can be weaned to maintain sat greater than 92% IS q 1 hour awake. Albuterol every 2 hours when necessary CTA 09/25/16 RLL pulmonary embolism. Heparin drip for PE on hold s/p neurosurgery CV: Paroxysmal atrial fibrillation (currently in sinus rhythm) Hypertension Type II NSTEMI on admission ?Takotsubo cardiomyopathy (EF 30-35% with unknown baseline) She received aspirin 325 in the ED on admission but was not a candidate for subsequent ASA due to discovery of ICH. Echo 09/23 showed EF 30-35% ?takotsubo syndrome vs CAD. Monitor HR and BP keep MAP>65mmHg Evaluated by Cards- Dr. Park who recommends medical management Coreg 6.25 mg by mouth twice a day Norvasc 5 mg by mouth daily GI: Regular diet ordered per neurosurgery. Cleared by speech for regular diet . Protonix for GI prophylaxis. FEN/RENAL: 0.9 NaCl with 20 mg of KCl per liter at 100 mL per hour. Monitor renal function, Monitor I/O's, electrolytes replacement per protocol. Remove Armstrong in am. ID: Received vancomycin clinical education consultant to OR. Perioperative cefazolin. HEME: WHO IV glioblastoma Multiforme RLL Pulmonary embolism Heme oncology is following. Now s/p resection of mass. Treatment with +/- Temodar and radiation per oncology. Has been evaluated by radiation oncology, Dr. Conner. Off anticoagulants due to hemorrhagic brain mass male status post resection. s/p IVC filter placement 09/27/[address] Canales (IR) ENDO: Random cortisol appropriate, hemoglobin A1c 5.3 TSH is normal. Low-dose insulin sliding scale while on steroids. Will space Accu-Cheks to every 6 hours. PROPH: SCDs for DVT prophylaxis. IVC filter in place. Anticoagulants on hold status post neurosurgery. Protonix 40 mg po/IV daily for stress ulcer prophylaxis. ACCESS: Peripheral IV providing adequate access at this time. Right radial art line placed in OR 10/05/16 Palliative care medicine following. Level 2 Hill Mckeon MD Oct 07, 2016 10:01
[2016-10-07] MEDS: LACTATED RINGER'S 1000 ML IV SCH (11:01)
--- NOTE | 2016-10-07 11:01 | HHI.NSPN ---
(Joanne Mariano) Note Status Status: Progress Note (Joanne Mariano) Interval History Interval History Ms. Bay is a 71 year old female who presented to [facility] with acute delirium. She had reported peopler were coming to her house, she was having panic attacks. She was brought to [place] by her family member. A CT Brain showed a small focal hemorrhage in right temporal lobe with large amount of vasogenic edema. No known history of brain masses or tumors. She also reports of recently having headaches, as well as some weakness on the left side. 09/24/16: Came to evaluate pt but off the floor for MRI for prolonged period of time. Called MRI and pt pulled out IV and is agitated and tech states she may need to be sedated and intubated for MRI as she is not going to hold still and lost IV access for contrast MRI. 09/25/16: Pt sedated on Diprivan and Fentanyl drips. Intubated. Opens eyes when stimulated. Follows simple commands. 09/26/16: MRI Brain w/contrast shows underlying mass. She also now with DVT/PE on heparin drip. Currently on soft restraints. Oriented, and follows simple commands. No family at bedside. 09/27: drowsy on precedex due to agitation. we had discussed with her daughter who is POA over the phone, she is requesting for a needle bx. 09/29: POD 1 s/p needle biopsy of brain lesion, frz section reveals glioma. Currently awake, eating her breakfast. 09/30: POD 2, continues to do well, denies surgical pain, moves all four extremities, oriented x 3 10/01: POD 3, out of unit, she has no complaints, would like to leave hospital soon. Final patho reprots GBM 10/02: POD 4, denies headaches, nausea, vomiting, seizures. 10/03: step son in law in room, pt without clinical changes overnight, PT in room to ambulate 10/04: for resection of GBM tomorrow 10/06: POD 1 s/p right craniotomy for resection of GBM, currently doing well, denies any significant surgical pain, denies any focal weakness, nausea, vomiting. 3: POD 2, SHERIDAN drain with minima output, no acute events overnight. denies headaches, vomiting, seizures. (Joanne Mariano) Labs, Micro, & Vital Signs Results Date Time Temp Pulse Resp B/P Pulse Ox O2 Delivery O2 Flow Rate FiO2 10/07/16 08:00 98.1 61 18 152/67 96 10/07/16 08:00 75 10/07/16 06:00 58 10/07/16 04:00 61 10/07/16 04:00 98.1 60 19 135/65 93 10/07/16 02:00 61 10/07/16 00:00 55 10/07/16 00:00 98.3 55 11 119/57 96 10/06/16 22:00 59 10/06/16 20:11 97 Nasal Cannula 2.00 10/06/16 20:00 98.1 66 16 126/59 97 10/06/16 20:00 64 10/06/16 18:40 97.9 74 23 114/58 98 10/06/16 18:15 97.6 66 17 106/56 97 10/06/16 18:00 97.5 66 17 129/63 97 10/06/16 18:00 76 10/06/16 16:00 48 10/06/16 16:00 97.4 48 14 112/55 97 10/06/16 15:15 97.4 57 19 123/57 96 10/06/16 15:00 97.4 54 17 131/61 100 10/06/16 14:00 60 10/06/16 12:00 97.8 58 16 105/59 95 10/06/16 12:00 58 10/07/16 07:00 Intake Total 2361 ml Output Total 2490 ml Balance -129 ml Constitutional Vital Signs Date Time Temp Pulse Resp B/P Pulse Ox O2 Delivery O2 Flow Rate FiO2 10/07/16 08:00 98.1 61 18 152/67 96 10/07/16 08:00 75 10/07/16 06:00 58 10/07/16 04:00 61 10/07/16 04:00 98.1 60 19 135/65 93 10/07/16 02:00 61 3/3/17 00:00 55 10/07/16 00:00 98.3 55 11 119/57 96 10/06/16 22:00 59 10/06/16 20:11 97 Nasal Cannula 2.00 10/06/16 20:00 98.1 66 16 126/59 97 10/06/16 20:00 64 10/06/16 18:40 97.9 74 23 114/58 98 10/06/16 18:15 97.6 66 17 106/56 97 10/06/16 18:00 97.5 66 17 129/63 97 10/06/16 18:00 76 10/06/16 16:00 48 10/06/16 16:00 97.4 48 14 112/55 97 10/06/16 15:15 97.4 57 19 123/57 96 10/06/16 15:00 97.4 54 17 131/61 100 10/06/16 14:00 60 10/06/16 12:00 97.8 58 16 105/59 95 10/06/16 12:00 58 10/07/16 07:00 Intake Total 2361 ml Output Total 2490 ml Balance -129 ml (Joanne Mariano) Review of Systems/Exam Exam Ms. Bay is alert, sitting up in chair, appears comfortable, follows commands well. Surgical wound healing well, no warmth, redness, drainage or other evidence of infection. SHERIDAN drain with minimal drainage. Attempted to pull out SHERIDAN drain, the drain piece broke off from catheter piece and was unable to be pulled out. Dr. Ibrahim was called to room, her drain site was infiltrated with lidocaine, using sterile technique a small incision was made on the scalp, the drain piece visualized and using a hemostat successfully removed. Her incision was closed using a 3-0 silk suture. A pressure dressing applied using Kerlix head wrap and 4x4 gauze. Very minimal blood loss and the patient tolerated the procedure well. CN: Pupils 4 mm equal, EOMs grossly intact. Facial symmetric. Tongue midline. Neck: no meningismus or nuchal rigidity Motor: moves all four extremities well (Joanne Mariano) Medications Current Medications Current Medications Medications (Trade) Dose Ordered Sig/Hardeep Route PRN Reason Start Time Stop Time Status Last Admin Dose Admin Dextrose (D50w (Vial) Inj) 25 ml UNSCH PRN IV PUSH HYPOGLYCEMIA-SEE COMMENTS 09/23/16 03:00 Glucagon (Glucagon Inj) 1 mg UNSCH PRN OTHER HYPOGLYCEMIA-SEE COMMENTS 09/23/16 03:00 Insulin Aspart (NovoLOG SUPPLEMENTAL SCALE) 1 Q4H SQ 09/23/16 03:00 10/06/16 18:03 Hydralazine HCl (Apresoline Inj) 10 mg Q4H PRN IV PUSH SBP >160 09/23/16 03:30 10/05/16 20:21 Labetalol HCl (Trandate Inj) 10 mg Q4H PRN IV PUSH SBP >160 09/23/16 03:30 IV Flush (NS Flush) 2 ml UNSCH PRN IV FLUSH FLUSH AFTER USING IV ACCESS 09/23/16 03:30 10/04/16 06:16 IV Flush (NS Flush) 2 ml BID IV FLUSH 09/23/16 09:00 10/06/16 19:43 Ondansetron HCl (Zofran Inj) 4 mg Q6H PRN IV NAUSEA OR VOMITING 09/23/16 03:30 10/05/16 20:21 Miscellaneous Information 1 Q361D XX 09/23/16 03:30 09/23/16 03:30 Chlorhexidine Gluconate (Chlorhexidine 2% Cloth) Taper DAILY@04 TOP 09/23/16 04:00 09/19/17 03:59 10/07/16 03:23 Chlorhexidine Gluconate (Chlorhexidine 2% Cloth) 3 pack UNSCH PRN TOP HYGIENIC CARE 09/23/16 03:30 Dexamethasone Sodium Phosphate (Decadron Inj) 10 mg Q6HR IV PUSH 09/23/16 13:15 10/07/16 04:51 Haloperidol Lactate (Haldol Inj) 2 mg Q6H PRN IV PUSH AGITATION AND/OR HALLUCINATION 09/24/16 01:00 09/24/16 05:36 Senna/Docusate Sodium (Yocasta-Colace) 1 tab HS PO 09/27/16 21:00 10/06/16 19:42 Bisacodyl (Dulcolax Supp) 10 mg DAILY PRN [place] CONSTIPATION 09/28/16 14:30 Pantoprazole Sodium (Protonix) 40 mg DAILY PO 09/28/16 15:30 10/07/16 08:40 Calcium Gluconate (Calcium Gluconate Inj) 1 gm UNSCH PRN IV SEE LABEL COMMENTS 09/28/16 14:30 Acetaminophen (Tylenol) 650 mg Q4H PRN PO TEMP>101F, PAIN 1-10, HEADACHE 09/28/16 14:30 10/05/16 00:14 Carvedilol (Coreg) 6.25 mg Q12HR PO 09/29/16 21:00 10/07/16 08:40 Levetriacetam (Keppra) 500 mg Q12HR PO 09/30/16 21:00 10/07/16 08:40 Amlodipine Besylate (Norvasc) 5 mg DAILY PO 10/03/16 09:00 10/07/16 08:40 Enalaprilat 1.25 mg 1.25 mg Q6H PRN IV PUSH SBP>160, DBP>90 10/02/16 23:00 10/04/16 21:12 Lactated Ringer's 1,000 ml @ 30 mls/hr Q24H IV 10/05/16 11:30 10/05/16 11:30 Potassium Chloride/Sodium Chloride (NS + KCl 20 Meq Inj) 1,000 ml @ 100 mls/hr Q10H IV 10/05/16 14:34 10/07/16 04:51 IV Flush (NS Flush) 2 ml UNSCH PRN IVF FLUSH AFTER USING IV ACCESS 10/05/16 14:45 IV Flush 2 ml 2 ml BID IVF 10/05/16 21:00 Levetriacetam/ Sodium Chloride (Keppra Inj/NS Inj) 105 ml @ 400 mls/hr Q12H IV 10/05/16 14:45 10/07/16 01:53 Bisacodyl (Dulcolax Supp) 10 mg DAILY PRN [place] CONSTIPATION 10/05/16 14:45 Docusate Sodium (Colace) 100 mg BID PO 10/05/16 21:00 10/07/16 08:40 Pantoprazole Sodium (Protonix) 40 mg DAILY PO 10/06/16 09:00 Pantoprazole Sodium (Protonix Inj) 40 mg DAILY IVP 10/06/16 09:00 Ondansetron HCl (Zofran Inj) 4 mg Q6H PRN IV NAUSEA OR VOMITING 10/05/16 14:45 Calcium Gluconate 1 gm 1 gm UNSCH PRN IV SEE LABEL COMMENTS 10/05/16 14:45 Potassium Chloride 100 ml @ 50 mls/hr UNSCH PRN IV POTASSIUM LESS THAN 4 10/05/16 14:45 Magnesium Sulfate/ Sodium Chloride (Magnesium Sulfate Inj/NS Inj) 108 ml @ 108 mls/hr UNSCH PRN IV MAGNESIUM LESS THAN 2 10/05/16 14:45 Acetaminophen/ Hydrocodone Bitart ([place] 10-325 Mg) 1 tab Q4H PRN PO PAIN SCALE 1 TO 5 10/05/16 14:45 Acetaminophen/ Hydrocodone Bitart ([place] 10-325 Mg) 2 tab Q4H PRN PO PAIN SCALE 6 TO 10 10/05/16 14:45 Morphine Sulfate (Morphine Inj) 2 mg Q2H PRN IV PUSH PAIN SCALE 1 TO 6 10/05/16 14:45 10/05/16 20:05 Morphine Sulfate (Morphine Inj) 4 mg Q2H PRN IV PUSH PAIN SCALE 7 TO 10 10/05/16 14:45 Acetaminophen (Tylenol) 650 mg Q4H PRN PO TEMPERATURE > 101.5 F 10/05/16 14:45 (Joanne Mariano) Medical Decision Making MDM Remarks 71 y/o female brought by her family due to delirium and anxiety MRI Brain shows right temporal lobe mass, s/p needle biopsy of brain mass, frozen section anaplastic glioma, final pathology reveals Glioblastoma Multiforme s/p craniotomy for resection of right temporal GBM 10/05/16, neuro stable, doing well post-op DVT, s/p placement of IVC filter (Joanne Mariano) Plan Plan Remarks cont therapy, rehab efforts cont decadron radiation-oncology and oncology clear to transfer out of unit, (Joanne Mariano) Attending Statement The exam, history, and the medical decision-making described in the above note were completed with the assistance of the mid-level provider. I reviewed and agree with the findings presented. I attest that I had a [id number] encounter with the patient on the same day, and personally performed and documented my assessment and findings in the medical record. (Dinh Ibrahim MD) Joanne Mariano Oct 07, 2016 11:01 Dinh Ibrahim MD Oct 09, 2016 14:10
--- NOTE | 2016-10-07 11:33 | PD.ONC.PN ---
Subjective Subjective Remarks Afebrile overnight. patient sitting up in chair next to bed, granddaughter at bedside. She has no complaints. Objective Data Date Time Temp Pulse Resp B/P Pulse Ox O2 Delivery O2 Flow Rate FiO2 10/07/16 10:00 65 10/07/16 08:00 98.1 61 18 152/67 96 10/07/16 08:00 75 10/07/16 06:00 58 10/07/16 04:00 61 10/07/16 04:00 98.1 60 19 135/65 93 10/07/16 02:00 61 10/07/16 00:00 55 10/07/16 00:00 98.3 55 11 119/57 96 10/06/16 22:00 59 10/06/16 20:11 97 Nasal Cannula 2.00 10/06/16 20:00 98.1 66 16 126/59 97 10/06/16 20:00 64 10/06/16 18:40 97.9 74 23 114/58 98 10/06/16 18:15 97.6 66 17 106/56 97 10/06/16 18:00 97.5 66 17 129/63 97 10/06/16 18:00 76 10/06/16 16:00 48 10/06/16 16:00 97.4 48 14 112/55 97 10/06/16 15:15 97.4 57 19 123/57 96 10/06/16 15:00 97.4 54 17 131/61 100 10/06/16 14:00 60 10/06/16 12:00 97.8 58 16 105/59 95 10/06/16 12:00 58 10/07/16 10/07/16 10/07/16 07:00 15:00 23:00 Intake Total 900 ml Output Total 1010 ml Balance -110 ml Result Diagram: 10/07/16 0351 10/07/16 0351 Laboratory Results Laboratory Tests Test 10/06/16 10/06/16 10/07/16 11:33 13:12 03:51 Prothrombin Time 14.3 SEC 11.7 SEC Prothromb Time International 1.3 RATIO 1.1 RATIO Ratio Activated Partial 20.6 SEC 21.7 SEC Thromboplast Time Fibrinogen 54 mg/dL 114 mg/dL D-Dimer Quantitative (PE/DVT) 4.45 MG/L FEU Blood Bank Comment White Blood Count 17.6 TH/MM3 Red Blood Count 3.50 MIL/MM3 Hemoglobin 10.5 GM/DL Hematocrit 31.3 % Mean Corpuscular Volume 89.4 FL Mean Corpuscular Hemoglobin 29.9 PG Mean Corpuscular Hemoglobin 33.5 % Concent Red Cell Distribution Width 13.9 % Platelet Count 100 TH/MM3 Mean Platelet Volume 9.1 FL Neutrophils (%) (Auto) 91.4 % Lymphocytes (%) (Auto) 4.7 % Monocytes (%) (Auto) 3.8 % Eosinophils (%) (Auto) 0.0 % Basophils (%) (Auto) 0.1 % Neutrophils # (Auto) 16.1 TH/MM3 Lymphocytes # (Auto) 0.8 TH/MM3 Monocytes # (Auto) 0.7 TH/MM3 Eosinophils # (Auto) 0.0 TH/MM3 Basophils # (Auto) 0.0 TH/MM3 CBC Comment DIFF FINAL Differential Comment Sodium Level 142 MEQ/L Potassium Level 3.9 MEQ/L Chloride Level 109 MEQ/L Carbon Dioxide Level 25.2 MEQ/L Anion Gap 8 MEQ/L Blood Urea Nitrogen 18 MG/DL Creatinine 0.64 MG/DL Estimat Glomerular Filtration 91 ML/MIN Rate Random Glucose 131 MG/DL Calcium Level 7.8 MG/DL Total Bilirubin 0.9 MG/DL Aspartate Amino Transf 10 U/L (AST/SGOT) Alanine Aminotransferase 19 U/L (ALT/SGPT) Alkaline Phosphatase 50 U/L Total Protein 5.2 GM/DL Albumin 2.6 GM/DL Administered Medications Medications (Trade) Dose Ordered Sig/Hardeep Route PRN Reason Start Time Stop Time Status Last Admin Dose Admin Insulin Aspart (NovoLOG SUPPLEMENTAL SCALE) 1 Q4H SQ 09/23/16 03:00 10/06/16 18:03 Hydralazine HCl (Apresoline Inj) 10 mg Q4H PRN IV PUSH SBP >160 09/23/16 03:30 10/05/16 20:21 IV Flush (NS Flush) 2 ml UNSCH PRN IV FLUSH FLUSH AFTER USING IV ACCESS 09/23/16 03:30 10/04/16 06:16 IV Flush (NS Flush) 2 ml BID IV FLUSH 09/23/16 09:00 10/06/16 19:43 Ondansetron HCl (Zofran Inj) 4 mg Q6H PRN IV NAUSEA OR VOMITING 09/23/16 03:30 10/05/16 20:21 Miscellaneous Information 1 Q361D XX 09/23/16 03:30 09/23/16 03:30 Chlorhexidine Gluconate (Chlorhexidine 2% Cloth) Taper DAILY@04 TOP 09/23/16 04:00 09/19/17 03:59 10/07/16 03:23 Dexamethasone Sodium Phosphate (Decadron Inj) 10 mg Q6HR IV PUSH 09/23/16 13:15 10/07/16 11:26 Haloperidol Lactate (Haldol Inj) 2 mg Q6H PRN IV PUSH AGITATION AND/OR HALLUCINATION 09/24/16 01:00 09/24/16 05:36 Senna/Docusate Sodium (Yocasta-Colace) 1 tab HS PO 09/27/16 21:00 10/06/16 19:42 Pantoprazole Sodium (Protonix) 40 mg DAILY PO 09/28/16 15:30 10/07/16 08:40 Acetaminophen (Tylenol) 650 mg Q4H PRN PO TEMP>101F, PAIN 1-10, HEADACHE 09/28/16 14:30 10/05/16 00:14 Carvedilol (Coreg) 6.25 mg Q12HR PO 09/29/16 21:00 10/07/16 08:40 Levetriacetam (Keppra) 500 mg Q12HR PO 09/30/16 21:00 10/07/16 08:40 Amlodipine Besylate (Norvasc) 5 mg DAILY PO 10/03/16 09:00 10/07/16 08:40 Enalaprilat 1.25 mg 1.25 mg Q6H PRN IV PUSH SBP>160, DBP>90 10/02/16 23:00 10/04/16 21:12 Lactated Ringer's 1,000 ml @ 30 mls/hr Q24H IV 10/05/16 11:30 10/05/16 11:30 Potassium Chloride/Sodium Chloride 1,000 ml @ 100 mls/hr Q10H IV 10/05/16 14:34 10/07/16 04:51 Levetriacetam/ Sodium Chloride (Keppra Inj/NS Inj) 105 ml @ 400 mls/hr Q12H IV 10/05/16 14:45 10/07/16 01:53 Docusate Sodium (Colace) 100 mg BID PO 10/05/16 21:00 10/07/16 08:40 Morphine Sulfate (Morphine Inj) 2 mg Q2H PRN IV PUSH PAIN SCALE 1 TO 6 10/05/16 14:45 10/05/16 20:05 Objective Remarks GENERAL: Elderly female, sitting up in chair next to bed, flossing her teeth. SKIN: Warm and dry. HEAD: Normocephalic. EYES: No injection or drainage. NECK: Supple, trachea midline. CARDIOVASCULAR: Regular rate and rhythm RESPIRATORY: Breath sounds equal bilaterally. No accessory muscle use. GASTROINTESTINAL: Abdomen soft, non-tender, nondistended. EXTREMITIES: No cyanosis NEUROLOGICAL: moving extremities. normal speech. awake and alert. Assessment/Plan Problem List: (1) Brain mass Status: Acute Plan: 10/07/16: POD #2, s/p craniotomy by NS. no transfusion needed today pathology shows Glioblastoma Multiforme. treatment would be resection +/- Temodar and radiation. will await NS decision on resection. --CT brain showed small focal hemorrhage involving right temporal lobe with prominent with vasogenic edema. Underlying neoplasm is not excluded. 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 --? plan for +biopsy vs. resection 09/28/16 by NS --CT ab/pelvis: no mets (2) Thrombocytopenia Status: Acute Plan: --likely consumption--will transfuse to keep platelet count>100K s/p craniotomy (3) Coagulopathy Status: Acute Plan: --likely consumptive coagulopathy --transfuse to keep fibrinogen>100 (4) Pulmonary embolism Status: Acute Plan: s/p IVC filter placement on 09/27 --CTA showed PE --u/s legs: shows RLE DVT, has IVC filter in place, cannot use chemical anticoagulation d/t recent neurosurgery Assessment 71y/o female with pulmonary embolism, admitted with AMS. h/o atrial fibrillation Attending Statement no c/o plat >100K Fibrinogen is up after cryo. await path on resection The exam, history, and the medical decision-making described in the above note were completed with the assistance of the mid-level provider. I reviewed and agree with the findings presented. I attest that I had a [id number] encounter with the patient on the same day, and personally performed and documented my assessment and findings in the medical record. Jenniffer Ramirez Oct 07, 2016 11:33 Donis Tim MD Oct 07, 2016 16:56
[2016-10-07] MEDS: DOCUSATE SODIUM 50 MG/SENNA 8.6 MG TAB PO SCH (20:55)
[2016-10-07] MEDS: ACETAMINOPHEN 325 MG TAB PO PRN (20:55)
--- NOTE | 2016-10-07 23:26 | EKG ---
Date Performed: 10/06/2016 Time Performed: 17:52:44 PTAGE: 71 years EKG: Sinus rhythm . Prolonged QT interval Possible septal infarct - age undetermined Inferior/lateral T wave changes ma y be due to myocardial ischemia Abnormal ECG PREVIOUS TRACING : 09/23/2016 20.47 DOCTOR: Julissa Garcia Interpretating Date/Time 10/07/2016 23:24:08
[2016-10-08] VITALS (10 sets, daily range): BP systolic 105–166; BP diastolic 57–91; PULSE 54–66; RESP 17–32; TEMP 96.8–98; O2SAT 92–100
[2016-10-08] MEDS: DEXAMETHASONE SOD PHOS 4 MG/ML VIAL IV PUSH SCH ×3 (00:55→12:26)
[2016-10-08] MEDS: NS + KCL 20 MEQ INJ 1,000 ML IV SCH ×2 (00:55→12:26)
[2016-10-08] MEDS: levETIRAcetam INJ 500 MG in SODIUM CHLORIDE 0.9% INJ 100 ML IV SCH (02:55)
[2016-10-08] MEDS: INSULIN ASPART SUPPLEMENTAL SCALE SQ SCH ×6 (03:00→22:12)
[2016-10-08 07:09] LABS: ALT (GPT) 20 U/L (10-53); ANION GAP 9 MEQ/L (5-15); AST (GOT) 11 U/L (15-37); BLOOD UREA NITROGEN 17 MG/DL (7-18); CHLORIDE 109 MEQ/L (98-107); GLOMERULAR FILTRATION RATE 134 ML/MIN (>89); POTASSIUM 3.7 MEQ/L (3.5-5.1); SODIUM (NA) 141 MEQ/L (136-145)
[2016-10-08 07:11] LABS: ALKALINE PHOSPHATASE 51 U/L (45-117); AUTOMATED NEUTROPHIL # 11.2 TH/MM3 (1.8-7.7); BASOPHIL % 0.1 % (0.0-2.0); HEMATOCRIT 31.9 % (35.0-46.0); HEMO FLAGS DIFF FINAL; LYMPH % 7.4 % (9.0-44.0); MEAN CELL VOLUME 88.8 FL (80.0-100.0); MEAN CORPUSCULAR HEMOGLOBIN 30.8 PG (27.0-34.0); MEAN CORPUSCULAR HGB CONC 34.7 % (32.0-36.0); MONO % 6.5 % (0.0-8.0); PLATELET COUNT 100 TH/MM3 (150-450); RED BLOOD COUNT 3.59 MIL/MM3 (4.00-5.30); TOTAL BILIRUBIN ADULT 0.7 MG/DL (0.2-1.0)
[2016-10-08] MEDS: DOCUSATE SODIUM 100 MG CAP PO SCH ×2 (08:42→22:08)
[2016-10-08] MEDS: CARVEDILOL 6.25 MG TAB PO SCH ×2 (08:42→22:08)
[2016-10-08] MEDS: SODIUM CHLORIDE 0.9% FLUSH 5 ML FLUSH IVF SCH ×2 (08:42→21:00)
[2016-10-08] MEDS: PANTOPRAZOLE SODIUM 40 MG VIAL IVP SCH (08:42)
[2016-10-08] MEDS: SODIUM CHLORIDE 0.9% FLUSH 5 ML FLUSH IV FLUSH SCH ×2 (08:42→22:10)
[2016-10-08] MEDS: PANTOPRAZOLE SOD 40 MG DELAYED RELEASE TAB PO SCH ×2 (08:43)
[2016-10-08] MEDS: levETIRAcetam 500 MG TAB PO SCH ×2 (08:43→22:08)
[2016-10-08] MEDS: amLODIPine BESYLATE 5 MG TAB PO SCH (08:43)
[2016-10-08] MEDS: LACTATED RINGER'S 1000 ML IV SCH (11:30)
--- NOTE | 2016-10-08 13:02 | HHI.PR ---
Subjective Remarks Follow-up for hypotension, glioblastoma Patient denies any headache, nausea or vomiting. Eating well. No nausea, vomiting or diarrhea. No dizziness or lightheadedness. Objective Vitals Vital Signs Date Time Temp Pulse Resp B/P Pulse Ox O2 Delivery O2 Flow Rate FiO2 10/08/16 10:00 63 10/08/16 08:00 58 10/08/16 08:00 97.5 58 18 145/75 95 10/08/16 06:00 54 10/08/16 04:00 54 10/08/16 04:00 97.4 54 19 166/76 92 10/08/16 02:00 54 10/08/16 00:00 58 10/08/16 00:00 97.6 58 32 120/67 96 10/07/16 22:00 80 10/07/16 21:55 12 10/07/16 20:03 97 21 10/07/16 20:00 97.4 58 19 124/58 94 10/07/16 20:00 58 10/07/16 18:00 69 10/07/16 16:00 97.1 65 20 126/81 98 10/07/16 16:00 70 10/07/16 14:00 65 I/O 10/07/16 10/07/16 10/07/16 10/08/16 10/08/16 10/08/16 07:00 15:00 23:00 07:00 15:00 23:00 Intake Total 900 ml 900 ml 240 ml 1190 ml Output Total 1010 ml 1000 ml 1100 ml 900 ml Balance -110 ml -100 ml -860 ml 290 ml Intake Oral 700 ml 240 ml 240 ml IV Total 900 ml 200 ml 0 ml 950 ml Output Urine Total 1000 ml 1000 ml 1100 ml 900 ml Stool Total 0 ml 0 ml Drainage Total 10 ml # Bowel Movements 0 0 Result Diagram: 10/08/16 0520 10/08/16 05 Objective Remarks Not in distress, well-nourished, looks stated age Right temporal surgical wound site clean, jimmie in place. PERRL, pink conjunctiva without injection, anicteric Nose without bleeding, airway patent, oropharynx clear Supple neck, no masses or thyromegaly, trachea midline Normal rate and regular rhythm, no murmurs gallops or rubs appreciated. Clear to auscultation and symmetric bilaterally, occasional rhonchi. Normal bowel sounds, soft, non-tender, nondistended, no guarding. Extremities without clubbing, cyanosis, 2+ lower extremity edema. No rash of generalized distribution. Skin is warm and dry. AAO x3, no cranial nerve deficits, moves all 4 extremities, no focal neurologic deficits A/P Assessment and Plan Acute R temporal lobe hemorrhage with edema with Glioblastoma multiforme, WHO IV - MRI with contrast 09/24/16 shows Right occipitotemporal mass 5x 3 cm on MRI , s/p R temporal lobe biopsy 09/28/16, s/p craniotomy with resection right temporal lobe mass 10/05/16 - Neurosurgery following, continue Keppra for seizure prophylaxis, continue Decadron 2 mg every 6 hours. Lortab and morphine for pain. Neurology Dr. Chung following. Patient on Keppra IV and oral, RN to check with neurology/ neurosurgery. Schizophrenia Anxiety, delirium - Haldol as needed for agitation Acute respiratory failure, Right lower lobe pulmonary embolism - respiratory failure resolved. Intubated earlier this admission 09/24/16 for airway protection and obtaining an MRI. Self extubated 09/25/16 , now on nasal cannula , continue incentive spirometry, albuterol. CTA 09/25/16 RLL pulmonary embolism. Heparin drip for PE on hold s/p neurosurgery Paroxysmal atrial fibrillation (currently in sinus rhythm) Hypertension Type II NSTEMI on admission ?Takotsubo cardiomyopathy (EF 30-35% with unknown baseline) - She received aspirin 325 in the ED on admission but was not a candidate for subsequent ASA due to discovery of ICH. Echo 09/23 showed EF 30-35% ?takotsubo syndrome vs CAD. Medical management per Dr. Park from cardiology, continue Coreg and Norvasc. WHO IV glioblastoma Multiforme RLL Pulmonary embolism - Heme oncology is following. Now s/p resection of mass. Treatment with +/- Temodar and radiation per oncology. Has been evaluated by radiation oncology, Dr. Conner. Off anticoagulants due to hemorrhagic brain mass male status post resection.s/p IVC filter placement 09/27/[address] Canales (IR) Hyperglycemia- Low-dose insulin sliding scale while on steroids. Will space Accu-Cheks to every 6 hours. Lower extremity edema-hold Norvasc to give room for Lasix, start Lasix tomorrow when blood pressure is better. Regular diet, stop IVF. PROPH: SCDs for DVT prophylaxis. IVC filter in place. Anticoagulants on hold status post neurosurgery. Protonix for GI prophylaxis Ashlie Aldrich MD Oct 08, 2016 13:02
--- NOTE | 2016-10-08 14:00 | HHI.NSPN ---
History Chief Complaint: Cerebral mass. Interval History Patient with history right occipital intracranial hemorrhage. Status post resection of glioma 10/05/2016. History of N STEMI.. Pulmonary embolus. Status post IVC filter. Now off anticoagulation due to intracranial hemorrhage.. History of schizophrenia Exam Results Vital Signs Date Time Temp Pulse Resp B/P Pulse Ox O2 Delivery O2 Flow Rate FiO2 10/08/16 12:00 57 10/08/16 12:00 98.0 24 105/57 100 10/07/16 20:03 21 10/06/16 20:11 Nasal Cannula 2.00 Intake and Output 10/07/16 10/07/16 10/08/16 08:00 16:00 00:00 Intake Total 900 ml 900 ml 240 ml Output Total 1010 ml 1000 ml 1100 ml Balance -110 ml -100 ml -860 ml Physical Examination Ms. Bay is alert, sitting up in chair, appears comfortable, follows commands well. Awake and alert. Speech clear and appropriate. Follow simple commands well Oriented 3 Reasonable judgment and insight Surgical wound healing well, no warmth, redness, drainage or other evidence of infection. CN: Pupils 4 mm equal, EOMs grossly intact. Facial symmetric. Tongue midline. Neck: no meningismus or nuchal rigidity Sensory: Intact light touch all extremities Motor: moves all four extremities well to command Lab, Micro, Other Results Laboratory Tests Test 10/08/16 05:20 White Blood Count 13.0 TH/MM3 Red Blood Count 3.59 MIL/MM3 Hemoglobin 11.1 GM/DL Hematocrit 31.9 % Mean Corpuscular Volume 88.8 FL Mean Corpuscular Hemoglobin 30.8 PG Mean Corpuscular Hemoglobin 34.7 % Concent Red Cell Distribution Width 14.0 % Platelet Count 100 TH/MM3 Mean Platelet Volume 9.1 FL Neutrophils (%) (Auto) 86.0 % Lymphocytes (%) (Auto) 7.4 % Monocytes (%) (Auto) 6.5 % Eosinophils (%) (Auto) 0.0 % Basophils (%) (Auto) 0.1 % Neutrophils # (Auto) 11.2 TH/MM3 Lymphocytes # (Auto) 1.0 TH/MM3 Monocytes # (Auto) 0.8 TH/MM3 Eosinophils # (Auto) 0.0 TH/MM3 Basophils # (Auto) 0.0 TH/MM3 CBC Comment DIFF FINAL Differential Comment Sodium Level 141 MEQ/L Potassium Level 3.7 MEQ/L Chloride Level 109 MEQ/L Carbon Dioxide Level 23.0 MEQ/L Anion Gap 9 MEQ/L Blood Urea Nitrogen 17 MG/DL Creatinine 0.46 MG/DL Estimat Glomerular Filtration 134 ML/MIN Rate Random Glucose 109 MG/DL Calcium Level 8.3 MG/DL Total Bilirubin 0.7 MG/DL Aspartate Amino Transf 11 U/L (AST/SGOT) Alanine Aminotransferase 20 U/L (ALT/SGPT) Alkaline Phosphatase 51 U/L Total Protein 5.3 GM/DL Albumin 2.7 GM/DL Medical Decision Making Impression and Plan Impression: 1. Stable neurologic exam post craniotomy evacuation hematoma, resection of glioma. 2. Coagulopathy. Thrombocytopenia. Decreased fibrinogen. Pathology following. Transfusion to keep fibrinogen greater than 100 3. Chronic atrial fibrillation. Now in sinus rhythm 4. NSTEMI on admission 5. Status post pulmonary embolism. Status post IVC filter 6. Hyperglycemia 7. History of schizophrenia Recommendations: Discussed with patient She appears stable for transfer regular floor from neurosurgical standpoint. Plan for treatment with Temodar and radiation therapy when stable postop. Continuing insulin sliding scale. Following IV anticoagulation at present due to hemorrhagic brain lesion postoperative Srini Ugarte MD Oct 08, 2016 14:00
[2016-10-08] MEDS: DEXAMETHASONE 4 MG TAB PO SCH (17:30)
[2016-10-08] MEDS: CHLORHEXIDINE GLUCONATE 2 % 1 PACK (2 CLOTHS) TOP SCH (22:12)
[2016-10-09] VITALS (7 sets, daily range): BP systolic 108–146; BP diastolic 68–76; PULSE 58–68; RESP 17–21; TEMP 96.2–98.6; O2SAT 96–100
[2016-10-09] MEDS: ACETAMINOPHEN 325 MG TAB PO PRN (02:37)
[2016-10-09] MEDS: INSULIN ASPART SUPPLEMENTAL SCALE SQ SCH ×6 (02:38→22:25)
[2016-10-09] MEDS: DEXAMETHASONE 4 MG TAB PO SCH ×5 (04:48→23:53)
[2016-10-09] MEDS: DOCUSATE SODIUM 100 MG CAP PO SCH (09:10)
[2016-10-09] MEDS: PANTOPRAZOLE SOD 40 MG DELAYED RELEASE TAB PO SCH (09:10)
[2016-10-09] MEDS: levETIRAcetam 500 MG TAB PO SCH ×2 (09:10→20:12)
[2016-10-09] MEDS: CARVEDILOL 6.25 MG TAB PO SCH ×2 (09:14→20:13)
[2016-10-09] MEDS: SODIUM CHLORIDE 0.9% FLUSH 5 ML FLUSH IV FLUSH SCH ×2 (09:14→20:13)
[2016-10-09] MEDS: SODIUM CHLORIDE 0.9% FLUSH 5 ML FLUSH IVF SCH ×2 (09:15→20:13)
[2016-10-09 10:26] LABS: ALKALINE PHOSPHATASE 53 U/L (45-117); TOTAL BILIRUBIN ADULT 0.8 MG/DL (0.2-1.0)
[2016-10-09 10:30] LABS: ALT (GPT) 22 U/L (10-53); ANION GAP 10 MEQ/L (5-15); AST (GOT) 21 U/L (15-37); BICARBONATE 22.6 MEQ/L (21.0-32.0); BLOOD UREA NITROGEN 17 MG/DL (7-18); CHLORIDE 107 MEQ/L (98-107); GLOMERULAR FILTRATION RATE 127 ML/MIN (>89); POTASSIUM 4.1 MEQ/L (3.5-5.1); SODIUM (NA) 140 MEQ/L (136-145)
--- NOTE | 2016-10-09 12:48 | HHI.PR ---
Subjective Remarks Follow-up for lower extremity edema, constipation, glioblastoma. The patient is doing well today. Eating lunch. She had a headache earlier as well as some lightheadedness, but that has improved with Tylenol. She has not had a bowel movement since the surgery. Passing flatus. Discussed with RN, reportedly the patient's family was concerned about lower extremity swelling. Objective Vitals Vital Signs Date Time Temp Pulse Resp B/P Pulse Ox O2 Delivery O2 Flow Rate FiO2 10/09/16 12:00 97.6 68 18 135/68 100 10/09/16 08:00 97.4 62 17 142/72 100 10/09/16 04:08 98.6 60 18 126/70 97 10/09/16 03:43 18 10/09/16 00:22 97.9 62 18 108/70 96 10/08/16 20:15 96.8 64 17 118/60 98 10/08/16 16:00 56 10/08/16 16:00 97.8 56 20 151/91 97 10/08/16 14:00 66 I/O 10/08/16 10/08/16 10/08/16 10/09/16 10/09/16 10/09/16 07:00 15:00 23:00 07:00 15:00 23:00 Intake Total 1190 ml 610 ml 480 ml Output Total 900 ml 500 ml 850 ml 650 ml Balance 290 ml 110 ml -370 ml -650 ml Intake Oral 240 ml 600 ml 480 ml IV Total 950 ml 10 ml Output Urine Total 900 ml 500 ml 850 ml 650 ml Stool Total 0 ml # Bowel Movements 0 Result Diagram: 10/08/16 0520 10/09/16 0911 Imaging Last Impressions Lower Extremity Ultrasound 10/06/16 0000 Signed Impressions: Service Date/Time: October 14:49 - CONCLUSION: Small focal nonocclusive thrombus involving the common femoral vein on the right. This is new from the 09/23/16 exam. Ilan Fu MD Head CT 10/05/16 0000 Signed Impressions: Service Date/Time: Wednesday, October 05, 2016 19:09 - CONCLUSION: Expected postsurgical changes following right-sided drain placement. No findings to suggest significant acute hemorrhage, edema or mass effect. Haja Barker MD Abdomen X-Ray 09/27/16 1500 Signed Impressions: Service Date/Time: Tuesday, September 27, 2016 15:03 - CONCLUSION: 1. There is an IVC filter present overlying the right aspect of the L2 and L3 vertebral bodies. Otherwise, no radiopaque foreign body is seen. 2. Otherwise, no acute finding is visualized. Bon Carbajal MD IVC Filter Placement X-Ray 09/27/16 0000 Signed Impressions: Service Date/Time: Tuesday, September 27, 2016 13:13 - CONCLUSION: Uncomplicated inferior vena cava filter placement as above. This is a retrievable device and can be retrieved up to one year from its date of placement. Flynn Canales Jr., MD Chest X-Ray 09/26/16 0600 Signed Impressions: Service Date/Time: Monday, September 26, 2016 03:22 - CONCLUSION: No acute disease. Bon Garcia MD Chest CT 09/25/16 0000 Signed Impressions: Service Date/Time: Sunday, September 25, 2016 16:38 - CONCLUSION: 1. Positive for pulmonary embolic disease. 2. No evidence for metastatic disease to the thorax. Eleuterio Pyle MD Abdomen/Pelvis CT 09/25/16 0000 Signed Impressions: Service Date/Time: Sunday, September 25, 2016 16:38 - CONCLUSION: 1. Positive for pulmonary embolus right lower lobe. 2. No evidence for metastatic disease within the abdomen and pelvis. Eleuterio Pyle MD Neck Magnetic Resonance Angiography 09/24/16 0000 Signed Impressions: Service Date/Time: Saturday, September 24, 2016 14:31 - CONCLUSION: Normal examination for a patient of this age. Eleuterio Pyle MD Head Magnetic Resonance Angiography 09/23/16 0000 Signed Impressions: Service Date/Time: Friday, September 23, 2016 09:52 - CONCLUSION: Significant intracranial atherosclerotic disease, otherwise negative. Ciaran Davis MD FACR Brain MRI 09/23/16 0000 Signed Impressions: Service Date/Time: Friday, September 23, 2016 09:52 - CONCLUSION: Abnormality in the right parietal occipital region that does show some blood clots and vasogenic edema. This probably represents an ischemic event; however, the amount of vasogenic edema is concerning. MRI with contrast would be of benefit when the patient is clinically stable. Ciaran Davis MD FACR Objective Remarks GENERAL: Well-developed well-nourished. In no acute distress. SKIN: Warm and dry. Right temporal surgical site clean HEENT: Normocephalic. Pupils equal and round. Mucous membranes pink and moist. CARDIOVASCULAR: Regular rate and rhythm. No murmur appreciated. RESPIRATORY: No accessory muscle use. Clear to auscultation. Breath sounds equal bilaterally. GASTROINTESTINAL: Abdomen soft, non-tender, nondistended. Bowel sounds x4. MUSCULOSKELETAL: No obvious deformities. No clubbing or cyanosis. 2+ edema. NEUROLOGICAL: Awake and alert. Strength 4/5, but equal in bilateral lower extremities. UE strength 5/5. Moves upper and lower extremities spontaneously. Normal speech. PSYCHIATRIC: Appropriate mood and affect; insight and judgment fair to normal. A/P Assessment and Plan 71-year-old female with a past medical history of schizophrenia and A. fib who was initially admitted with hallucinations, elevated troponin, and intracranial hemorrhage Acute R temporal lobe hemorrhage with edema with Glioblastoma multiforme, WHO IV - MRI with contrast 09/24/16 shows Right occipitotemporal mass 5x 3 cm on MRI , s /p R temporal lobe biopsy 09/28/16, s/p craniotomy with resection right temporal lobe mass 10/05/16 - Neurosurgery following, continue oral Keppra for seizure prophylaxis, continue Decadron 2 mg every 6 hours. Lortab and morphine for pain. Neurology Dr. Chung following. Schizophrenia Anxiety, delirium - Haldol as needed for agitation Acute respiratory failure, Right lower lobe pulmonary embolism - respiratory failure resolved. Intubated earlier this admission 09/24/16 for airway protection and obtaining an MRI. Self extubated 09/25/16 , now on nasal cannula , continue incentive spirometry, albuterol. CTA 09/25/16 RLL pulmonary embolism. Heparin drip for PE on hold s/p neurosurgery Paroxysmal atrial fibrillation (currently in sinus rhythm) Hypertension Type II NSTEMI on admission ?Takotsubo cardiomyopathy (EF 30-35% with unknown baseline) - She received aspirin 325 in the ED on admission but was not a candidate for subsequent ASA due to discovery of ICH. Echo 09/23 showed EF 30-35% ?takotsubo syndrome vs CAD. Medical management per Dr. Park from cardiology, continue Coreg. WHO IV glioblastoma Multiforme RLL Pulmonary embolism - Heme oncology is following. Now s/p resection of mass. Treatment with +/- Temodar and radiation per oncology. Has been evaluated by radiation oncology, Dr. Conner. Off anticoagulants due to hemorrhagic brain mass male status post resection.s/p IVC filter placement 09/27/[address] Canales (IR) Hyperglycemia: Low-dose insulin sliding scale while on steroids. Will space Accu-Cheks to every 6 hours. Lower extremity edema: Medication effect vs 2/2 cardiomyopathy. Stopped IVF. Hold Norvasc. Start Lasix. KACEY hose. Constipation: Change Colace to Yocasta-Colace twice daily. Give milk of magnesia 1 now and prn. PROPH: SCDs for DVT prophylaxis. IVC filter in place. Anticoagulants on hold status post neurosurgery. Protonix for GI prophylaxis Carl Carlson Oct 09, 2016 12:48 Carl Carlson Oct 09, 2016 12:48
[2016-10-09] MEDS ORDERED: MAGNESIUM HYDROXIDE SUSP 30 ML CUP PO PRN (13:00)
[2016-10-09] MEDS ORDERED: MAGNESIUM HYDROXIDE SUSP 30 ML CUP PO ONE (13:00)
[2016-10-09] MEDS: DOCUSATE SODIUM 50 MG/SENNA 8.6 MG TAB PO SCH ×2 (13:11→20:13)
[2016-10-09] MEDS: FUROSEMIDE 20 MG TAB PO SCH (17:59)
--- NOTE | 2016-10-09 19:06 | HHI.NSPN ---
History Chief Complaint: Cerebral mass. Interval History Patient with history right occipital intracranial hemorrhage. Status post resection of glioma 10/05/2016. History of N STEMI.. Pulmonary embolus. Status post IVC filter. Now off anticoagulation due to intracranial hemorrhage.. History of schizophrenia Exam Results Vital Signs Date Time Temp Pulse Resp B/P Pulse Ox O2 Delivery O2 Flow Rate FiO2 10/09/16 16:00 96.8 68 18 146/76 98 10/07/16 20:03 21 10/06/16 20:11 Nasal Cannula 2.00 Intake and Output 10/08/16 10/08/16 10/09/16 08:00 16:00 00:00 Intake Total 1190 ml 610 ml 480 ml Output Total 900 ml 500 ml 850 ml Balance 290 ml 110 ml -370 ml Physical Examination Ms. Bay is alert, sitting up in chair, appears comfortable, follows commands well. Awake and alert. Speech clear and appropriate. Awake and alert Oriented X 3 Speech is clear Conversant and appropriate Sitting up in bed. Right scalp incision dry and intact without erythema, edema drainage or significant tenderness. No nuchal rigidity Follow simple commands well Answers questions appropriately Reasonable judgment and insight Recent and remote memory are intact No evidence of anxiety or depression Pupils are equal and reactive to accommodation. Extra-ocular movements, visual kim to confrontation, facial sensorimotor, tongue, palate, sternocleidomastoid testing, hearing to finger rub testing, and bilateral shoulder shrug are all intact. Sensation is intact to light touch in all extremities Strength normal major flexion and extension groups all extremities Fine motor movements intact upper extremities Medical Decision Making Impression and Plan Impression: 1. Stable neurologic exam post craniotomy evacuation hematoma, resection of glioma. 2. Coagulopathy. Thrombocytopenia. Decreased fibrinogen. Pathology following. Transfusion to keep fibrinogen greater than 100 3. Chronic atrial fibrillation. Now in sinus rhythm 4. NSTEMI on admission 5. Status post pulmonary embolism. Status post IVC filter 6. Hyperglycemia 7. History of schizophrenia Recommendations: Discussed with patient Plan for treatment with Temodar and radiation therapy when stable postop. Continuing insulin sliding scale. Holding IV anticoagulation at present due to hemorrhagic brain lesion postoperative Srini Ugarte MD Oct 09, 2016 19:06
[2016-10-09] MEDS: ACETAMINOPHEN/HYDROcodone 325 MG/10 MG TAB PO PRN (20:12)
[2016-10-09] MEDS: CHLORHEXIDINE GLUCONATE 2 % 1 PACK (2 CLOTHS) TOP SCH (22:42)
[2016-10-10] VITALS (8 sets, daily range): BP systolic 112–150; BP diastolic 59–92; PULSE 52–77; RESP 17–22; TEMP 96.5–98.1; O2SAT 98–100
[2016-10-10] MEDS: INSULIN ASPART SUPPLEMENTAL SCALE SQ SCH ×6 (03:00→23:00)
[2016-10-10] MEDS: DEXAMETHASONE 4 MG TAB PO SCH ×4 (06:20→23:36)
[2016-10-10 08:27] LABS: HEMATOCRIT 30.6 % (35.0-46.0); MEAN CELL VOLUME 88.4 FL (80.0-100.0); MEAN CORPUSCULAR HEMOGLOBIN 30.2 PG (27.0-34.0); MEAN CORPUSCULAR HGB CONC 34.1 % (32.0-36.0); PLATELET COUNT 81 TH/MM3 (150-450); RED BLOOD COUNT 3.46 MIL/MM3 (4.00-5.30); RED CELL DISTRIBUTION WIDTH 13.9 % (11.6-17.2); WHITE BLOOD COUNT 16.5 TH/MM3 (4.0-11.0)
[2016-10-10 08:35] LABS: REVIEW FLAG FINAL
[2016-10-10 08:52] LABS: BICARBONATE 25.5 MEQ/L (21.0-32.0); MAGNESIUM 2.3 MG/DL (1.5-2.5); POTASSIUM 3.6 MEQ/L (3.5-5.1)
[2016-10-10] MEDS: SODIUM CHLORIDE 0.9% FLUSH 5 ML FLUSH IV FLUSH SCH (09:00)
[2016-10-10] MEDS ORDERED: SODIUM CHLOR 0.9% 250 ML INJ 250 ML IV ONE (09:15)
[2016-10-10] MEDS: PANTOPRAZOLE SOD 40 MG DELAYED RELEASE TAB PO SCH (09:37)
[2016-10-10] MEDS: FUROSEMIDE 20 MG TAB PO SCH ×2 (09:37→17:06)
[2016-10-10] MEDS: DOCUSATE SODIUM 50 MG/SENNA 8.6 MG TAB PO SCH ×2 (09:37→23:36)
[2016-10-10] MEDS: levETIRAcetam 500 MG TAB PO SCH ×2 (09:37→23:36)
[2016-10-10] MEDS: SODIUM CHLORIDE 0.9% FLUSH 5 ML FLUSH IVF SCH ×2 (09:37→23:36)
[2016-10-10] MEDS: CARVEDILOL 6.25 MG TAB PO SCH ×2 (09:37→23:36)
[2016-10-10] MEDS ORDERED: ACETAMINOPHEN 325 MG TAB PO PRN (10:00)
[2016-10-10] MEDS ORDERED: diphenhydrAMINE HCL 25 MG CAP PO PRN (10:00)
--- NOTE | 2016-10-10 11:57 | PD.ONC.PN ---
Subjective Subjective Remarks Afebrile overnight. Patient resting comfortably without complaint. Denies headache. Objective Data Date Time Temp Pulse Resp B/P Pulse Ox O2 Delivery O2 Flow Rate FiO2 10/10/16 10:48 98.0 72 17 115/73 99 10/10/16 08:00 98.1 67 22 145/92 100 10/10/16 05:21 96.8 60 19 112/62 99 10/10/16 00:09 96.5 63 20 117/68 98 10/10/16 00:00 77 10/09/16 22:42 16 10/09/16 21:15 96.2 67 21 129/69 98 10/09/16 19:13 58 10/09/16 16:00 96.8 68 18 146/76 98 10/09/16 12:00 97.6 68 18 135/68 100 10/10/16 10/10/16 10/10/16 07:00 15:00 23:00 Output Total 2500 ml Balance -2500 ml Result Diagram: 10/10/16 0704 10/10/16 0734 Laboratory Results Laboratory Tests Test 10/10/16 10/10/16 10/10/16 07:04 07:34 09:13 White Blood Count 16.5 TH/MM3 Red Blood Count 3.46 MIL/MM3 Hemoglobin 10.4 GM/DL Hematocrit 30.6 % Mean Corpuscular Volume 88.4 FL Mean Corpuscular Hemoglobin 30.2 PG Mean Corpuscular Hemoglobin 34.1 % Concent Red Cell Distribution Width 13.9 % Platelet Count 81 TH/MM3 Mean Platelet Volume 9.2 FL Sodium Level 140 MEQ/L Potassium Level 3.6 MEQ/L Chloride Level 104 MEQ/L Carbon Dioxide Level 25.5 MEQ/L Anion Gap 11 MEQ/L Blood Urea Nitrogen 16 MG/DL Creatinine 0.59 MG/DL Estimat Glomerular Filtration 100 ML/MIN Rate Random Glucose 150 MG/DL Calcium Level 7.8 MG/DL Magnesium Level 2.3 MG/DL Blood Bank Comment Administered Medications Medications (Trade) Dose Ordered Sig/Hardeep Route PRN Reason Start Time Stop Time Status Last Admin Dose Admin Insulin Aspart (NovoLOG SUPPLEMENTAL SCALE) 1 Q4H SQ 09/23/16 03:00 10/09/16 22:25 Hydralazine HCl (Apresoline Inj) 10 mg Q4H PRN IV PUSH SBP >160 09/23/16 03:30 10/05/16 20:21 Miscellaneous Information 1 Q361D XX 09/23/16 03:30 09/23/16 03:30 Chlorhexidine Gluconate (Chlorhexidine 2% Cloth) Taper DAILY@04 TOP 09/23/16 04:00 09/19/17 03:59 10/07/16 03:23 Haloperidol Lactate (Haldol Inj) 2 mg Q6H PRN IV PUSH AGITATION AND/OR HALLUCINATION 09/24/16 01:00 09/24/16 05:36 Acetaminophen (Tylenol) 650 mg Q4H PRN PO TEMP>101F, PAIN 1-10, HEADACHE 09/28/16 14:30 10/09/16 02:37 Carvedilol (Coreg) 6.25 mg Q12HR PO 09/29/16 21:00 10/10/16 09:37 Levetriacetam (Keppra) 500 mg Q12HR PO 09/30/16 21:00 10/10/16 09:37 Amlodipine Besylate (Norvasc) 5 mg DAILY PO 10/03/16 09:00 Hold 10/08/16 08:43 Enalaprilat (Vasotec Inj) 1.25 mg Q6H PRN IV PUSH SBP>160, DBP>90 10/02/16 23:00 10/04/16 21:12 IV Flush (NS Flush) 2 ml BID IVF 10/05/16 21:00 10/10/16 09:37 Pantoprazole Sodium (Protonix) 40 mg DAILY PO 10/06/16 09:00 10/10/16 09:37 Acetaminophen/ Hydrocodone Bitart ([place] 10-325 Mg) 1 tab Q4H PRN PO PAIN SCALE 1 TO 5 10/05/16 14:45 10/09/16 20:12 Morphine Sulfate (Morphine Inj) 2 mg Q2H PRN IV PUSH PAIN SCALE 1 TO 6 10/05/16 14:45 10/05/16 20:05 Dexamethasone (Decadron) 4 mg Q6HR PO 10/08/16 18:00 10/10/16 06:20 Furosemide (Lasix) 20 mg BID@ PO 10/09/16 18:00 10/10/16 09:37 Senna/Docusate Sodium 1 tab 1 tab BID PO 10/09/16 13:00 10/10/16 09:37 Sodium Chloride (NS 250 ml Inj) 250 ml @ 15 mls/hr ONCE ONCE IV 10/10/16 09:15 10/11/16 01:54 10/10/16 10:58 Objective Remarks GENERAL: Elderly female, sitting upright in bed in nad. SKIN: Warm and dry. HEAD: Normocephalic. EYES: No injection or drainage. NECK: Supple, trachea midline. CARDIOVASCULAR: Regular rate and rhythm RESPIRATORY: Breath sounds equal bilaterally. No accessory muscle use. GASTROINTESTINAL: Abdomen soft, non-tender, nondistended. EXTREMITIES: No cyanosis NEUROLOGICAL: awake and alert, normal speech. able to move extremities. Assessment/Plan Problem List: (1) Brain mass Status: Acute Plan: 10/10/16: recovering well from craniotomy. will plan for follow up in clinic once closer to discharge. pathology shows Glioblastoma Multiforme. treatment would be resection +/- Temodar and radiation. will await NS decision on resection. --CT brain showed small focal hemorrhage involving right temporal lobe with prominent with vasogenic edema. Underlying neoplasm is not excluded. 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 --? plan for +biopsy vs. resection 09/28/16 by NS --CT ab/pelvis: no mets (2) Thrombocytopenia Status: Acute Plan: 10/10/16: will give 1 unit platelets today --likely consumption--will transfuse to keep platelet count>100K s/p craniotomy (3) Coagulopathy Status: Acute Plan: --likely consumptive coagulopathy --transfuse to keep fibrinogen>100 (4) Pulmonary embolism Status: Acute Plan: s/p IVC filter placement on 09/27 --CTA showed PE --u/s legs: shows RLE DVT, has IVC filter in place, cannot use chemical anticoagulation d/t recent neurosurgery Assessment 71y/o female with pulmonary embolism, admitted with AMS. h/o atrial fibrillation Attending Statement c/o swelling lower legs L>R c/o palpitations s/p resection. Path is c/w GBM Extensive D/W pt, daughter and MJ. They have asked several questions. Discuss that she will need XRT and temodar chemo ~ 4 wks from surgery. await rehab placement. compressive stockings for leg swelling. start Lovenox prophylactic dose. will follow The exam, history, and the medical decision-making described in the above note were completed with the assistance of the mid-level provider. I reviewed and agree with the findings presented. I attest that I had a [id number] encounter with the patient on the same day, and personally performed and documented my assessment and findings in the medical record. Jenniffer Ramirez Oct 10, 2016 11:56 Donis Tim MD Oct 10, 2016 22:07
[2016-10-10 12:33] LABS: INTERNATIONAL NORMALIZED RATIO 1.1 RATIO; PROTHROMBIN TIME - PATIENT 11.9 SEC (9.8-11.6)
[2016-10-10 12:43] LABS: APTT (PATIENT) 20.9 SEC (24.3-30.1)
--- NOTE | 2016-10-10 13:31 | HHI.PR ---
Subjective Remarks Follow-up for glioblastoma, lower extremity edema, constipation. The patient is doing well today. She continues to have lower extremity edema. She states she slept with her legs elevated last night. Had a good bowel movement. Objective Vitals Vital Signs Date Time Temp Pulse Resp B/P Pulse Ox O2 Delivery O2 Flow Rate FiO2 10/10/16 12:00 97.9 69 18 115/73 100 10/10/16 10:48 98.0 72 17 115/73 99 10/10/16 08:00 98.1 67 22 145/92 100 10/10/16 05:21 96.8 60 19 112/62 99 10/10/16 00:09 96.5 63 20 117/68 98 10/10/16 00:00 77 10/09/16 22:42 16 10/09/16 21:15 96.2 67 21 129/69 98 10/09/16 19:13 58 10/09/16 16:00 96.8 68 18 146/76 98 I/O 10/09/16 10/09/16 10/09/16 10/10/16 10/10/16 10/10/16 07:00 15:00 23:00 07:00 15:00 23:00 Intake Total 480 ml Output Total 650 ml 1800 ml 300 ml 2500 ml Balance -650 ml -1320 ml -300 ml -2500 ml Intake Oral 480 ml Output Urine Total 650 ml 1800 ml 300 ml 2500 ml # Bowel Movements 0 1 Result Diagram: 10/10/16 0704 10/10/16 0734 Imaging Last Impressions Lower Extremity Ultrasound 10/06/16 0000 Signed Impressions: Service Date/Time: October 14:49 - CONCLUSION: Small focal nonocclusive thrombus involving the common femoral vein on the right. This is new from the 09/23/16 exam. Ilan Fu MD Head CT 10/05/16 0000 Signed Impressions: Service Date/Time: Wednesday, October 05, 2016 19:09 - CONCLUSION: Expected postsurgical changes following right-sided drain placement. No findings to suggest significant acute hemorrhage, edema or mass effect. Haja Barker MD Abdomen X-Ray 09/27/16 1500 Signed Impressions: Service Date/Time: Tuesday, September 27, 2016 15:03 - CONCLUSION: 1. There is an IVC filter present overlying the right aspect of the L2 and L3 vertebral bodies. Otherwise, no radiopaque foreign body is seen. 2. Otherwise, no acute finding is visualized. Bon Carbajal MD IVC Filter Placement X-Ray 09/27/16 0000 Signed Impressions: Service Date/Time: Tuesday, September 27, 2016 13:13 - CONCLUSION: Uncomplicated inferior vena cava filter placement as above. This is a retrievable device and can be retrieved up to one year from its date of placement. Flynn Canales Jr., MD Chest X-Ray 09/26/16 0600 Signed Impressions: Service Date/Time: Monday, September 26, 2016 03:22 - CONCLUSION: No acute disease. Bon Garcia MD Chest CT 09/25/16 0000 Signed Impressions: Service Date/Time: Sunday, September 25, 2016 16:38 - CONCLUSION: 1. Positive for pulmonary embolic disease. 2. No evidence for metastatic disease to the thorax. Eleuterio Pyle MD Abdomen/Pelvis CT 09/25/16 0000 Signed Impressions: Service Date/Time: Sunday, September 25, 2016 16:38 - CONCLUSION: 1. Positive for pulmonary embolus right lower lobe. 2. No evidence for metastatic disease within the abdomen and pelvis. Eleuterio Pyle MD Neck Magnetic Resonance Angiography 09/24/16 0000 Signed Impressions: Service Date/Time: Saturday, September 24, 2016 14:31 - CONCLUSION: Normal examination for a patient of this age. Eleuterio Pyle MD Head Magnetic Resonance Angiography 09/23/16 0000 Signed Impressions: Service Date/Time: Friday, September 23, 2016 09:52 - CONCLUSION: Significant intracranial atherosclerotic disease, otherwise negative. Ciaran Davis MD FACR Brain MRI 09/23/16 0000 Signed Impressions: Service Date/Time: Friday, September 23, 2016 09:52 - CONCLUSION: Abnormality in the right parietal occipital region that does show some blood clots and vasogenic edema. This probably represents an ischemic event; however, the amount of vasogenic edema is concerning. MRI with contrast would be of benefit when the patient is clinically stable. Ciaran Davis MD FACR Objective Remarks GENERAL: Well-developed well-nourished. In no acute distress. Sitting up in a chair. SKIN: Warm and dry. Right temporal surgical site clean HEENT: Normocephalic. Pupils equal and round. Mucous membranes pink and moist. CARDIOVASCULAR: Regular rate and rhythm. No murmur appreciated. RESPIRATORY: No accessory muscle use. Clear to auscultation. Breath sounds equal bilaterally. GASTROINTESTINAL: Abdomen soft, non-tender, nondistended. Bowel sounds x4. MUSCULOSKELETAL: No obvious deformities. No clubbing or cyanosis. 1+ edema. NEUROLOGICAL: Awake and alert. Moves upper and lower extremities spontaneously. Normal speech. PSYCHIATRIC: Appropriate mood and occasionally confused affect; insight and judgment fair. A/P Assessment and Plan 71-year-old female with a past medical history of schizophrenia and A. fib who was initially admitted with hallucinations, elevated troponin, and intracranial hemorrhage Acute R temporal lobe hemorrhage with edema with Glioblastoma multiforme, WHO IV - MRI with contrast 09/24/16 shows Right occipitotemporal mass 5x 3 cm on MRI , s /p R temporal lobe biopsy 09/28/16, s/p craniotomy with resection right temporal lobe mass 10/05/16 - Neurosurgery following, continue oral Keppra for seizure prophylaxis, continue Decadron 2 mg every 6 hours. Lortab and morphine for pain. Neurology Dr. Chung following. Schizophrenia Anxiety, delirium - Haldol as needed for agitation Acute respiratory failure, Right lower lobe pulmonary embolism - respiratory failure resolved. Intubated earlier this admission 09/24/16 for airway protection and obtaining an MRI. Self extubated 09/25/16 , now on nasal cannula , continue incentive spirometry, albuterol. CTA 09/25/16 RLL pulmonary embolism. Heparin drip for PE on hold s/p neurosurgery Paroxysmal atrial fibrillation (currently in sinus rhythm) Hypertension Type II NSTEMI on admission ?Takotsubo cardiomyopathy (EF 30-35% with unknown baseline) - She received aspirin 325 in the ED on admission but was not a candidate for subsequent ASA due to discovery of ICH. Echo 09/23 showed EF 30-35% ?takotsubo syndrome vs CAD. Medical management per Dr. Park from cardiology, continue Coreg. Diuresis as below. WHO IV glioblastoma Multiforme RLL Pulmonary embolism - Heme oncology is following. Now s/p resection of mass. Treatment with +/- Temodar and radiation per oncology. Has been evaluated by radiation oncology, Dr. Conner. Off anticoagulants due to hemorrhagic brain mass s/p resection. S/P IVC filter placement 09/27/[address] Canales (IR) Coagulopathy: Thrombocytopenia and decreased fibrinogen. Transfusion to keep fibrinogen and/or platelets both greater than 100. Hematology following. Monitor CBC and fibrinogen. Leukocytosis: WBC elevated since 10/06. Afebrile. Likely elevated secondary to steroids as above. Watch for fevers or signs of infection. Hyperglycemia: Low-dose insulin sliding scale while on steroids. Accu-Cheks every 6 hours. Lower extremity edema: Medication effect vs 09/08 cardiomyopathy. Stopped IVF. Holding Norvasc. Started oral Lasix twice daily. KACEY ordoñez. Monitor I's and O' s, renal function, electrolytes. Constipation: Resolved with MoM. Continue Yocasta-Colace twice daily. PROPH: SCDs for DVT prophylaxis. IVC filter in place. Anticoagulants on hold status post neurosurgery. Protonix for GI prophylaxis Carl Carlson Oct 10, 2016 13:31
--- NOTE | 2016-10-10 16:07 | HHI.NSPN ---
(Joanne Mariano) Note Status Status: Progress Note (Joanne Mariano) Interval History Interval History Ms. Bay is a 71 year old female who presented to [facility] with acute delirium. She had reported peopler were coming to her house, she was having panic attacks. She was brought to [place] by her family member. A CT Brain showed a small focal hemorrhage in right temporal lobe with large amount of vasogenic edema. No known history of brain masses or tumors. She also reports of recently having headaches, as well as some weakness on the left side. 09/24/16: Came to evaluate pt but off the floor for MRI for prolonged period of time. Called MRI and pt pulled out IV and is agitated and tech states she may need to be sedated and intubated for MRI as she is not going to hold still and lost IV access for contrast MRI. 09/25/16: Pt sedated on Diprivan and Fentanyl drips. Intubated. Opens eyes when stimulated. Follows simple commands. 09/26/16: MRI Brain w/contrast shows underlying mass. She also now with DVT/PE on heparin drip. Currently on soft restraints. Oriented, and follows simple commands. No family at bedside. 09/27: drowsy on precedex due to agitation. we had discussed with her daughter who is POA over the phone, she is requesting for a needle bx. 09/29: POD 1 s/p needle biopsy of brain lesion, frz section reveals glioma. Currently awake, eating her breakfast. 09/30: POD 2, continues to do well, denies surgical pain, moves all four extremities, oriented x 3 10/01: POD 3, out of unit, she has no complaints, would like to leave hospital soon. Final patho reprots GBM 10/02: POD 4, denies headaches, nausea, vomiting, seizures. 10/03: step son in law in room, pt without clinical changes overnight, PT in room to ambulate 10/04: for resection of GBM tomorrow 10/06: POD 1 s/p right craniotomy for resection of GBM, currently doing well, denies any significant surgical pain, denies any focal weakness, nausea, vomiting. 10/07: POD 2, SHERIDAN drain with minima output, no acute events overnight. denies headaches, vomiting, seizures. 10/10: transferred out of unit, eating her breakfast. denies headaches, vomiting , reports moving her extremities well. (Joanne Mariano) Labs, Micro, & Vital Signs Results Date Time Temp Pulse Resp B/P Pulse Ox O2 Delivery O2 Flow Rate FiO2 10/10/16 12:00 97.9 69 18 115/73 100 10/10/16 10:48 98.0 72 17 115/73 99 10/10/16 08:00 98.1 67 22 145/92 100 10/10/16 05:21 96.8 60 19 112/62 99 10/10/16 00:09 96.5 63 20 117/68 98 10/10/16 00:00 77 10/09/16 22:42 16 10/09/16 21:15 96.2 67 21 129/69 98 10/09/16 19:13 58 10/09/16 16:00 96.8 68 18 146/76 98 10/10/16 07:00 Intake Total 480 ml Output Total 4600 ml Balance -4120 ml Constitutional Vital Signs Date Time Temp Pulse Resp B/P Pulse Ox O2 Delivery O2 Flow Rate FiO2 10/10/16 12:00 97.9 69 18 115/73 100 10/10/16 10:48 98.0 72 17 115/73 99 10/10/16 08:00 98.1 67 22 145/92 100 10/10/16 05:21 96.8 60 19 112/62 99 10/10/16 00:09 96.5 63 20 117/68 98 10/10/16 00:00 77 10/09/16 22:42 16 10/09/16 21:15 96.2 67 21 129/69 98 10/09/16 19:13 58 10/09/16 16:00 96.8 68 18 146/76 98 10/10/16 07:00 Intake Total 480 ml Output Total 4600 ml Balance -4120 ml (Joanne Mariano) Review of Systems/Exam Exam Ms. Bay is alert, in bed eating her breakfast. She is in no apparent distress. Oriented x 3. Following commands. Right surgical wound is healing well. No drainage seen. Some dried blood along the incision. CN: Pupils are equal and reactive, facial appears symmetric. Sensation is intact to light touch in all extremities Motor: moves all four extremities well Mild lower extremity edema. (Joanne Mariano) Medications Current Medications Current Medications Medications (Trade) Dose Ordered Sig/Hardeep Route PRN Reason Start Time Stop Time Status Last Admin Dose Admin Dextrose (D50w (Vial) Inj) 25 ml UNSCH PRN IV PUSH HYPOGLYCEMIA-SEE COMMENTS 09/23/16 03:00 Glucagon (Glucagon Inj) 1 mg UNSCH PRN OTHER HYPOGLYCEMIA-SEE COMMENTS 09/23/16 03:00 Insulin Aspart (NovoLOG SUPPLEMENTAL SCALE) 1 Q4H SQ 09/23/16 03:00 10/10/16 13:31 Hydralazine HCl (Apresoline Inj) 10 mg Q4H PRN IV PUSH SBP >160 09/23/16 03:30 10/05/16 20:21 Labetalol HCl (Trandate Inj) 10 mg Q4H PRN IV PUSH SBP >160 09/23/16 03:30 Miscellaneous Information 1 Q361D XX 09/23/16 03:30 09/23/16 03:30 Chlorhexidine Gluconate (Chlorhexidine 2% Cloth) Taper DAILY@04 TOP 09/23/16 04:00 09/19/17 03:59 10/07/16 03:23 Chlorhexidine Gluconate (Chlorhexidine 2% Cloth) 3 pack UNSCH PRN TOP HYGIENIC CARE 09/23/16 03:30 Haloperidol Lactate (Haldol Inj) 2 mg Q6H PRN IV PUSH AGITATION AND/OR HALLUCINATION 09/24/16 01:00 09/24/16 05:36 Calcium Gluconate (Calcium Gluconate Inj) 1 gm UNSCH PRN IV SEE LABEL COMMENTS 09/28/16 14:30 Acetaminophen (Tylenol) 650 mg Q4H PRN PO TEMP>101F, PAIN 1-10, HEADACHE 09/28/16 14:30 10/09/16 02:37 Carvedilol (Coreg) 6.25 mg Q12HR PO 09/29/16 21:00 10/10/16 09:37 Levetriacetam (Keppra) 500 mg Q12HR PO 09/30/16 21:00 10/10/16 09:37 Amlodipine Besylate (Norvasc) 5 mg DAILY PO 10/03/16 09:00 Hold 10/08/16 08:43 Enalaprilat (Vasotec Inj) 1.25 mg Q6H PRN IV PUSH SBP>160, DBP>90 10/02/16 23:00 10/04/16 21:12 IV Flush (NS Flush) 2 ml UNSCH PRN IVF FLUSH AFTER USING IV ACCESS 10/05/16 14:45 IV Flush (NS Flush) 2 ml BID IVF 10/05/16 21:00 10/10/16 09:37 Bisacodyl (Dulcolax Supp) 10 mg DAILY PRN GA CONSTIPATION 10/05/16 14:45 Pantoprazole Sodium (Protonix) 40 mg DAILY PO 10/06/16 09:00 10/10/16 09:37 Ondansetron HCl (Zofran Inj) 4 mg Q6H PRN IV NAUSEA OR VOMITING 10/05/16 14:45 Calcium Gluconate 1 gm 1 gm UNSCH PRN IV SEE LABEL COMMENTS 10/05/16 14:45 Potassium Chloride 100 ml @ 50 mls/hr UNSCH PRN IV POTASSIUM LESS THAN 4 10/05/16 14:45 Magnesium Sulfate/ Sodium Chloride (Magnesium Sulfate Inj/NS Inj) 108 ml @ 108 mls/hr UNSCH PRN IV MAGNESIUM LESS THAN 2 10/05/16 14:45 Acetaminophen/ Hydrocodone Bitart ([place] 10-325 Mg) 1 tab Q4H PRN PO PAIN SCALE 1 TO 5 10/05/16 14:45 10/09/16 20:12 Acetaminophen/ Hydrocodone Bitart ([place] 10-325 Mg) 2 tab Q4H PRN PO PAIN SCALE 6 TO 10 10/05/16 14:45 Morphine Sulfate (Morphine Inj) 2 mg Q2H PRN IV PUSH PAIN SCALE 1 TO 6 10/05/16 14:45 10/05/16 20:05 Morphine Sulfate (Morphine Inj) 4 mg Q2H PRN IV PUSH PAIN SCALE 7 TO 10 10/05/16 14:45 Dexamethasone (Decadron) 4 mg Q6HR PO 10/08/16 18:00 10/10/16 13:31 Furosemide (Lasix) 20 mg BID@ PO 10/09/16 18:00 10/10/16 09:37 Senna/Docusate Sodium (Yocasta-Colace) 1 tab BID PO 10/09/16 13:00 10/10/16 09:37 Magnesium Hydroxide 30 ml 30 ml DAILY PRN PO CONSTIPATION 10/09/16 13:00 Sodium Chloride (NS 250 ml Inj) 250 ml @ 15 mls/hr ONCE ONCE IV 10/10/16 09:15 10/11/16 01:54 10/10/16 10:58 (Joanen Mariano) Medical Decision Making MDM Remarks 71 y/o female brought by her family due to delirium and anxiety MRI Brain shows right temporal lobe mass, s/p needle biopsy of brain mass, frozen section anaplastic glioma, final pathology reveals Glioblastoma Multiforme s/p craniotomy for resection of right temporal GBM 10/05/16, neuro stable and doing well postoperatively DVT, s/p placement of IVC filter, (Joanne Mariano) Plan Plan Remarks cont therapy and rehab cont mgt per rad-onc and oncology if needed ok for anticoagulation from NRS standpoint head jimmie dc 10/18/16 ok for dc from NRS standpoint (Joanne Mariano) Attending Statement The exam, history, and the medical decision-making described in the above note were completed with the assistance of the mid-level provider. I reviewed and agree with the findings presented. I attest that I had a [id number] encounter with the patient on the same day, and personally performed and documented my assessment and findings in the medical record. (Dinh Ibrahim MD) Joanne Mariano Oct 10, 2016 16:07 Dinh Ibrahim MD Oct 10, 2016 17:33
[2016-10-11] VITALS (8 sets, daily range): BP systolic 114–146; BP diastolic 69–90; PULSE 54–70; RESP 17–22; TEMP 96.5–98.1; O2SAT 100
[2016-10-11] MEDS: INSULIN ASPART SUPPLEMENTAL SCALE SQ SCH ×5 (03:00→18:42)
[2016-10-11] MEDS: CHLORHEXIDINE GLUCONATE 2 % 1 PACK (2 CLOTHS) TOP SCH (03:55)
[2016-10-11] MEDS: DEXAMETHASONE 4 MG TAB PO SCH ×3 (07:07→18:33)
[2016-10-11] MEDS: DOCUSATE SODIUM 50 MG/SENNA 8.6 MG TAB PO SCH ×2 (09:44→22:50)
[2016-10-11] MEDS: FUROSEMIDE 20 MG TAB PO SCH ×2 (09:45→18:33)
[2016-10-11] MEDS: CARVEDILOL 6.25 MG TAB PO SCH ×2 (09:45→22:52)
[2016-10-11] MEDS: PANTOPRAZOLE SOD 40 MG DELAYED RELEASE TAB PO SCH (09:45)
[2016-10-11] MEDS: levETIRAcetam 500 MG TAB PO SCH ×2 (09:45→21:00)
[2016-10-11 10:21] LABS: AUTOMATED NEUTROPHIL # 15.7 TH/MM3 (1.8-7.7); BASOPHIL # 0.1 TH/MM3 (0-0.2); BASOPHIL % 0.6 % (0.0-2.0); EOSINOPHIL % 0.1 % (0.0-4.0); HEMATOCRIT 33.1 % (35.0-46.0); HEMO FLAGS DIFF FINAL; LYMPH % 6.8 % (9.0-44.0); LYMPHOCYTE # 1.3 TH/MM3 (1.0-4.8); MEAN CELL VOLUME 88.2 FL (80.0-100.0); MEAN CORPUSCULAR HEMOGLOBIN 30.6 PG (27.0-34.0); MEAN CORPUSCULAR HGB CONC 34.7 % (32.0-36.0); MONO % 6.9 % (0.0-8.0); NEUT % 85.6 % (16.0-70.0); PLATELET COUNT 109 TH/MM3 (150-450); RED BLOOD COUNT 3.75 MIL/MM3 (4.00-5.30); WHITE BLOOD COUNT 18.3 TH/MM3 (4.0-11.0)
--- NOTE | 2016-10-11 11:01 | PD.ONC.PN ---
Subjective Subjective Remarks Afebrile overnight. Patient denies pain. No bleeding. Continuing to have edema in legs. NS cleared to start anticoagulation. Objective Data Date Time Temp Pulse Resp B/P Pulse Ox O2 Delivery O2 Flow Rate FiO2 10/11/16 08:00 97.1 60 20 130/84 100 10/11/16 05:32 96.5 54 18 129/71 100 10/11/16 02:09 70 10/11/16 01:18 97.2 56 20 114/69 100 10/10/16 21:02 96.8 62 18 116/59 99 10/10/16 16:00 98.1 52 20 150/83 99 10/10/16 12:00 97.9 69 18 115/73 100 10/11/16 10/11/16 10/11/16 07:00 15:00 23:00 Output Total 500 ml Balance -500 ml Result Diagram: 10/11/16 1000 10/10/16 0734 Laboratory Results Laboratory Tests Test 10/10/16 10/11/16 12:00 10:00 Prothrombin Time 11.9 SEC Prothromb Time International 1.1 RATIO Ratio Activated Partial 20.9 SEC Thromboplast Time Fibrinogen 112 mg/dL 140 mg/dL White Blood Count 18.3 TH/MM3 Red Blood Count 3.75 MIL/MM3 Hemoglobin 11.5 GM/DL Hematocrit 33.1 % Mean Corpuscular Volume 88.2 FL Mean Corpuscular Hemoglobin 30.6 PG Mean Corpuscular Hemoglobin 34.7 % Concent Red Cell Distribution Width 14.0 % Platelet Count 109 TH/MM3 Mean Platelet Volume 9.3 FL Neutrophils (%) (Auto) 85.6 % Lymphocytes (%) (Auto) 6.8 % Monocytes (%) (Auto) 6.9 % Eosinophils (%) (Auto) 0.1 % Basophils (%) (Auto) 0.6 % Neutrophils # (Auto) 15.7 TH/MM3 Lymphocytes # (Auto) 1.3 TH/MM3 Monocytes # (Auto) 1.3 TH/MM3 Eosinophils # (Auto) 0.0 TH/MM3 Basophils # (Auto) 0.1 TH/MM3 CBC Comment DIFF FINAL Differential Comment Administered Medications Medications (Trade) Dose Ordered Sig/Hardeep Route PRN Reason Start Time Stop Time Status Last Admin Dose Admin Insulin Aspart (NovoLOG SUPPLEMENTAL SCALE) 1 Q4H SQ 09/23/16 03:00 3/7/17 07:00 Hydralazine HCl (Apresoline Inj) 10 mg Q4H PRN IV PUSH SBP >160 09/23/16 03:30 10/05/16 20:21 Miscellaneous Information 1 Q361D XX 09/23/16 03:30 09/23/16 03:30 Chlorhexidine Gluconate (Chlorhexidine 2% Cloth) Taper DAILY@04 TOP 09/23/16 04:00 09/19/17 03:59 10/07/16 03:23 Haloperidol Lactate (Haldol Inj) 2 mg Q6H PRN IV PUSH AGITATION AND/OR HALLUCINATION 09/24/16 01:00 09/24/16 05:36 Acetaminophen (Tylenol) 650 mg Q4H PRN PO TEMP>101F, PAIN 1-10, HEADACHE 09/28/16 14:30 10/09/16 02:37 Carvedilol (Coreg) 6.25 mg Q12HR PO 09/29/16 21:00 10/11/16 09:45 Levetriacetam (Keppra) 500 mg Q12HR PO 09/30/16 21:00 10/11/16 09:45 Amlodipine Besylate (Norvasc) 5 mg DAILY PO 10/03/16 09:00 Hold 10/08/16 08:43 Enalaprilat (Vasotec Inj) 1.25 mg Q6H PRN IV PUSH SBP>160, DBP>90 10/02/16 23:00 10/04/16 21:12 IV Flush (NS Flush) 2 ml BID IVF 10/05/16 21:00 10/10/16 23:36 Pantoprazole Sodium (Protonix) 40 mg DAILY PO 10/06/16 09:00 10/11/16 09:45 Acetaminophen/ Hydrocodone Bitart ([place] 10-325 Mg) 1 tab Q4H PRN PO PAIN SCALE 1 TO 5 10/05/16 14:45 10/09/16 20:12 Morphine Sulfate (Morphine Inj) 2 mg Q2H PRN IV PUSH PAIN SCALE 1 TO 6 10/05/16 14:45 10/05/16 20:05 Dexamethasone (Decadron) 4 mg Q6HR PO 10/08/16 18:00 10/11/16 07:07 Furosemide (Lasix) 20 mg BID@09,18 PO 10/09/16 18:00 10/11/16 09:45 Senna/Docusate Sodium (Yocasta-Colace) 1 tab BID PO 10/09/16 13:00 10/11/16 09:44 Objective Remarks GENERAL: Elderly female, sitting up in bed in nad. SKIN: Warm and dry. HEAD: Normocephalic. EYES: No injection or drainage. NECK: Supple, trachea midline. CARDIOVASCULAR: Regular rate and rhythm RESPIRATORY: Breath sounds equal bilaterally. No accessory muscle use. GASTROINTESTINAL: Abdomen soft, non-tender, nondistended. EXTREMITIES: No cyanosis. BLE with edema. NEUROLOGICAL: able to move extremities. facial movements symmetric. awake and alert. Assessment/Plan Problem List: (1) Brain mass Status: Acute Plan: 10/11/16: will need follow up in clinic once discharged--Temodar + XRT pathology shows Glioblastoma Multiforme. treatment would be resection +/- Temodar and radiation. will await NS decision on resection. --CT brain showed small focal hemorrhage involving right temporal lobe with prominent with vasogenic edema. Underlying neoplasm is not excluded. 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 --? plan for +biopsy vs. resection 09/28/16 by NS --CT ab/pelvis: no mets (2) Thrombocytopenia Status: Acute Plan: 10/11/16: no transfusion today. platelets greater than 100K --likely consumption--will transfuse to keep platelet count>100K s/p craniotomy (3) Pulmonary embolism Status: Acute Plan: 10/11/16: will start Lovenox 40mg SQ q24 hours s/p IVC filter placement on 09/27 --CTA showed PE --u/s legs: shows RLE DVT, has IVC filter in place Assessment 71y/o female with pulmonary embolism, admitted with AMS. h/o atrial fibrillation Attending Statement The exam, history, and the medical decision-making described in the above note were completed with the assistance of the mid-level provider. I reviewed and agree with the findings presented except left leg now swollen. I attest that I had a [id number] encounter with the patient on the same day, and personally performed and documented my assessment and findings in the medical record. I have discussed case with Dr. Tim and Dr. Jenkins and family Crystal Romo. Future treatment discussed including XRT, Temodar, and prognosis. Her left calf is significantly swollen and painful and the previous ultrasound did not show a clot in the left leg. I believe that she has further DVT now involving the left leg which would explain the consumption of platelets and fibrinogen.. I spoke earlier today with Dr. Jenkins and he feels the surgery at this time does not significantly increase the risk of bleeding and the bleeding risk is due to the Glioma which has been mostly removed. Will repeat the ultrasound of the left leg and increase the Lovenox to 60 mg q 12 hours which is still less then full anticoagulation as she weighs more then 100 KG. Increased risk of bleeding discussed with patient and family. Total time today more then 45 minutes due to multiple discussions, review of chart and visit with patient as this is the first time I am seeing her. Will continue to follow. Jenniffer Ramirez Oct 11, 2016 11:01 Kenroy Soto MD Oct 11, 2016 21:35
[2016-10-11] MEDS: SODIUM CHLORIDE 0.9% FLUSH 5 ML FLUSH IVF SCH ×2 (11:59→22:50)
[2016-10-11] MEDS: ACETAMINOPHEN 325 MG TAB PO PRN ×2 (12:22→18:34)
[2016-10-11] MEDS ORDERED: ENOXAPARIN SODIUM 40 MG/0.4 ML SYRINGE SQ SCH (14:30)
--- NOTE | 2016-10-11 16:36 | HHI.PR ---
Subjective Remarks Follow-up for glioblastoma, lower extremity edema, constipation. The patient reports feeling well today. Denies any pain. Has some mild lower extremity edema which she believes is improving. She wants her Armstrong removed, has been ambulating in the room. Denies any other medical complaints at this time. Objective Vitals Vital Signs Date Time Temp Pulse Resp B/P Pulse Ox O2 Delivery O2 Flow Rate FiO2 10/11/16 16:00 98.1 65 20 146/90 100 10/11/16 12:00 96.9 60 22 126/78 100 10/11/16 08:00 97.1 60 20 130/84 100 10/11/16 05:32 96.5 54 18 129/71 100 10/11/16 02:09 70 10/11/16 01:18 97.2 56 20 114/69 100 10/10/16 21:02 96.8 62 18 116/59 99 I/O 10/10/16 10/10/16 10/10/16 10/11/16 10/11/16 10/11/16 07:00 15:00 23:00 07:00 15:00 23:00 Intake Total 600 ml 600 ml Output Total 2500 ml 1350 ml 500 ml 2700 ml Balance -2500 ml -750 ml -500 ml -2100 ml Intake Oral 600 ml 600 ml Output Urine Total 2500 ml 1350 ml 500 ml 2700 ml # Bowel Movements 0 Result Diagram: 10/11/16 1000 10/10/16 0734 Imaging Last Impressions Lower Extremity Ultrasound 10/06/16 0000 Signed Impressions: Service Date/Time: October 14:49 - CONCLUSION: Small focal nonocclusive thrombus involving the common femoral vein on the right. This is new from the 09/23/16 exam. Ilan Fu MD Head CT 10/05/16 0000 Signed Impressions: Service Date/Time: Wednesday, October 05, 2016 19:09 - CONCLUSION: Expected postsurgical changes following right-sided drain placement. No findings to suggest significant acute hemorrhage, edema or mass effect. Haja Barker MD Abdomen X-Ray 09/27/16 1500 Signed Impressions: Service Date/Time: Tuesday, September 27, 2016 15:03 - CONCLUSION: 1. There is an IVC filter present overlying the right aspect of the L2 and L3 vertebral bodies. Otherwise, no radiopaque foreign body is seen. 2. Otherwise, no acute finding is visualized. Bon Carbajal MD IVC Filter Placement X-Ray 09/27/16 0000 Signed Impressions: Service Date/Time: Tuesday, September 27, 2016 13:13 - CONCLUSION: Uncomplicated inferior vena cava filter placement as above. This is a retrievable device and can be retrieved up to one year from its date of placement. Flynn Canales Jr., MD Chest X-Ray 09/26/16 0600 Signed Impressions: Service Date/Time: Monday, September 26, 2016 03:22 - CONCLUSION: No acute disease. Bon Garcia MD Chest CT 09/25/16 0000 Signed Impressions: Service Date/Time: Sunday, September 25, 2016 16:38 - CONCLUSION: 1. Positive for pulmonary embolic disease. 2. No evidence for metastatic disease to the thorax. Eleuterio Pyle MD Abdomen/Pelvis CT 09/25/16 0000 Signed Impressions: Service Date/Time: Sunday, September 25, 2016 16:38 - CONCLUSION: 1. Positive for pulmonary embolus right lower lobe. 2. No evidence for metastatic disease within the abdomen and pelvis. Eleuterio Pyle MD Neck Magnetic Resonance Angiography 09/24/16 0000 Signed Impressions: Service Date/Time: Saturday, September 24, 2016 14:31 - CONCLUSION: Normal examination for a patient of this age. Eleuterio Pyle MD Head Magnetic Resonance Angiography 09/23/16 0000 Signed Impressions: Service Date/Time: Friday, September 23, 2016 09:52 - CONCLUSION: Significant intracranial atherosclerotic disease, otherwise negative. Ciaran Davis MD FACR Brain MRI 09/23/16 0000 Signed Impressions: Service Date/Time: Friday, September 23, 2016 09:52 - CONCLUSION: Abnormality in the right parietal occipital region that does show some blood clots and vasogenic edema. This probably represents an ischemic event; however, the amount of vasogenic edema is concerning. MRI with contrast would be of benefit when the patient is clinically stable. Ciaran Davis MD FACR Objective Remarks GENERAL: Well-developed well-nourished elderly female patient in NAD. . SKIN: Warm and dry. Right temporal surgical site clean, jimmie in place. HEENT: Normocephalic. Pupils equal and round. Mucous membranes pink and moist. CARDIOVASCULAR: Regular rate and rhythm. No murmur appreciated. RESPIRATORY: No accessory muscle use. Clear to auscultation. Breath sounds equal bilaterally. GASTROINTESTINAL: Abdomen soft, non-tender, nondistended. Bowel sounds x4. MUSCULOSKELETAL: No obvious deformities. No clubbing or cyanosis. Trace b/l lower extremity edema. NEUROLOGICAL: Awake and alert, oriented x4 today. Moves upper and lower extremities spontaneously. Normal speech. PSYCHIATRIC: Appropriate mood and occasionally confused affect; insight and judgment fair. Medications and IVs Current Medications Medications (Trade) Dose Ordered Sig/Hardeep Route Start Time Stop Time Status Last Admin (D50w (Vial) Inj) 25 ml UNSCH PRN IV PUSH 09/23/16 03:00 (Glucagon Inj) 1 mg UNSCH PRN OTHER 09/23/16 03:00 (NovoLOG SUPPLEMENTAL SCALE) 1 Q4H SQ 09/23/16 03:00 10/11/16 11:59 (Apresoline Inj) 10 mg Q4H PRN IV PUSH 09/23/16 03:30 10/05/16 20:21 (Trandate Inj) 10 mg Q4H PRN IV PUSH 09/23/16 03:30 Miscellaneous Information 1 Q361D XX 09/23/16 03:30 09/23/16 03:30 (Chlorhexidine 2% Cloth) Taper DAILY@04 TOP 09/23/16 04:00 09/19/17 03:59 10/07/16 03:23 (Chlorhexidine 2% Cloth) 3 pack UNSCH PRN TOP 09/23/16 03:30 (Haldol Inj) 2 mg Q6H PRN IV PUSH 09/24/16 01:00 09/24/16 05:36 (Tylenol) 650 mg Q4H PRN PO 09/28/16 14:30 10/11/16 12:22 (Coreg) 6.25 mg Q12HR PO 09/29/16 21:00 10/11/16 09:45 (Keppra) 500 mg Q12HR PO 09/30/16 21:00 10/11/16 09:45 (Norvasc) 5 mg DAILY PO 10/03/16 09:00 Hold 10/08/16 08:43 (Vasotec Inj) 1.25 mg Q6H PRN IV PUSH 10/02/16 23:00 10/04/16 21:12 (NS Flush) 2 ml UNSCH PRN IVF 10/05/16 14:45 (NS Flush) 2 ml BID IVF 10/05/16 21:00 10/11/16 11:59 (Dulcolax Supp) 10 mg DAILY PRN [place] 10/05/16 14:45 (Protonix) 40 mg DAILY PO 10/06/16 09:00 10/11/16 09:45 (Zofran Inj) 4 mg Q6H PRN IV 10/05/16 14:45 Calcium Gluconate 1 gm 1 gm UNSCH PRN IV 10/05/16 14:45 Potassium Chloride 100 ml @ 50 mls/hr UNSCH PRN IV 10/05/16 14:45 (Magnesium Sulfate Inj/NS Inj) 108 ml @ 108 mls/hr UNSCH PRN IV 10/05/16 14:45 ([place] 10-325 Mg) 1 tab Q4H PRN PO 10/05/16 14:45 10/09/16 20:12 ([place] 10-325 Mg) 2 tab Q4H PRN PO 10/05/16 14:45 (Morphine Inj) 2 mg Q2H PRN IV PUSH 10/05/16 14:45 10/05/16 20:05 (Morphine Inj) 4 mg Q2H PRN IV PUSH 10/05/16 14:45 (Decadron) 4 mg Q6HR PO 10/08/16 18:00 10/11/16 12:01 (Lasix) 20 mg BID@09,18 PO 10/09/16 18:00 10/11/16 09:45 (Yocasta-Colace) 1 tab BID PO 10/09/16 13:00 10/11/16 09:44 (Milk Of Magnesia Liq) 30 ml DAILY PRN PO 10/09/16 13:00 (Lovenox Inj) 40 mg Q24H SQ 10/11/16 14:30 10/11/16 15:53 Urinary Catheter: Yes Assessment to: Remove Date of Removal: Oct 11, 2016 A/P Assessment and Plan 71-year-old female with a past medical history of schizophrenia and A. fib who was initially admitted with hallucinations, elevated troponin, and intracranial hemorrhage Acute R temporal lobe hemorrhage with edema with Glioblastoma multiforme, WHO IV - MRI with contrast 09/24/16 shows Right occipitotemporal mass 5x 3 cm on MRI , s /p R temporal lobe biopsy 09/28/16, s/p craniotomy with resection right temporal lobe mass 10/05/16 - Neurosurgery following, continue oral Keppra for seizure prophylaxis, continue Decadron 2 mg q6h. Lortab and morphine for pain. - Neurology Dr. Chung following. Schizophrenia, Anxiety, delirium - Haldol as needed for agitation Acute respiratory failure, RLL pulmonary embolism with DVT RLE- Intubated earlier this admission 09/24/16 for airway protection and obtaining an MRI. Self extubated 09/25/16. -Respiratory failure resolved, Now stable on room air -Continue incentive spirometry, albuterol. -CTA 09/25/16 RLL pulmonary embolism. Initially held anticoagulation per neurosurgery -Doppler U/S shows RLE DVT -S/p IVC filter 09/[address] Arias -Restarted anticoagulation with Lovenox 40u sq qd per hematology (cleared by neurosurgery to restart anticoagulation) Paroxysmal atrial fibrillation (currently in sinus rhythm) Hypertension Type II NSTEMI on admission ?Takotsubo cardiomyopathy (EF 30-35% with unknown baseline) -s/p aspirin 325 in the ED on admission but was not a candidate for subsequent ASA due to discovery of ICH. -Echo 09/23 showed EF 30-35% ?takotsubo syndrome vs CAD. -Medical management per Dr. Park from cardiology, continue Coreg. Diuresis as below. WHO IV glioblastoma Multiforme RLL Pulmonary embolism - Heme oncology is following. Now s/p resection of mass. Treatment with Temodar and radiation per oncology. Has been evaluated by radiation oncology, Dr. Conner. Coagulopathy: Thrombocytopenia and decreased fibrinogen. Transfusion to keep fibrinogen and/or platelets both greater than 100. Hematology following. Monitor CBC and fibrinogen. Leukocytosis: WBC elevated since 10/06. Afebrile. Likely elevated secondary to steroids as above. Watch for fevers or signs of infection. Hyperglycemia: Low-dose insulin sliding scale while on steroids. Accu-Cheks every 6 hours. Lower extremity edema: Medication effect vs 09/08 cardiomyopathy. Stopped IVF. Holding Norvasc. Started oral Lasix twice daily. KACEY hose. Monitor I's and O' s, renal function, electrolytes. Improving. Constipation: Resolved with MoM. Continue Yocasta-Colace twice daily. 10/11 - Anxiety: started on hydroxyzine prn. DVT prophylaxis. IVC filter in place. Lovenox 40u sq qd. Protonix for GI prophylaxis Discussed with Dr. Arce, RN. Discharge Planning Removed Armstrong today. Cleared by neurosurgery. PT recommending rehab. Can likely discharge once rehab arrangements made. Garima Rodriguez PA-C Oct 11, 2016 16:36 Kaushik Arce MD Oct 11, 2016 21:29
[2016-10-11] MEDS: hydrOXYzine PAMOATE 25 MG CAP PO PRN (18:33)
--- NOTE | 2016-10-11 22:12 | RADRPT ---
EXAM DATE/TIME: 10/11/2016 21:47 [facility] COMPARISON: No previous studies available for comparison. INDICATIONS : Swelling in left lower extremity. MEDICAL HISTORY : A-Fib. Schizophrenia. Pulmonary embolism. SURGICAL HISTORY : Tonsillectomy.Hysterectomy. Face lift. Right temporal craniotomy resection. ENCOUNTER: Initial ACUITY: 1 day PAIN SCORE: 2/10 LOCATION: Left leg. TECHNIQUE: Venous ultrasound of the leg was performed from the inguinal ligament to the proximal calf. Real-clifton e, color Doppler and spectral tracing, compression and augmentation techniques were used. FINDINGS: Occlusive thrombus seen within the femoral, popliteal, peroneal, posterior tibial and greater sapheno us veins of the left lower extremity. I also don't see significant flow in the left iliac vein. CONCLUSION: Diffuse left lower extremity venous thrombosis. Bon Pride MD on October 11, 2016 at 22:08 Board Certified Radiologist. This report was verified electronically.
[2016-10-11] MEDS: ENOXAPARIN SODIUM 60 MG/0.6 ML SYRINGE SQ SCH (22:53)
[2016-10-12] VITALS (8 sets, daily range): BP systolic 116–142; BP diastolic 63–87; PULSE 57–67; RESP 17–22; TEMP 96.1–97.6; O2SAT 98–100
[2016-10-12] MEDS: DEXAMETHASONE 4 MG TAB PO SCH ×5 (00:34→22:34)
[2016-10-12] MEDS: CHLORHEXIDINE GLUCONATE 2 % 1 PACK (2 CLOTHS) TOP SCH (04:00)
[2016-10-12] MEDS: INSULIN ASPART SUPPLEMENTAL SCALE SQ SCH ×4 (06:00→21:00)
[2016-10-12 08:13] LABS: AUTOMATED NEUTROPHIL # 14.9 TH/MM3 (1.8-7.7); BASOPHIL # 0.1 TH/MM3 (0-0.2); BASOPHIL % 0.4 % (0.0-2.0); EOSINOPHIL % 0.1 % (0.0-4.0); HEMATOCRIT 35.2 % (35.0-46.0); LYMPH % 9.4 % (9.0-44.0); LYMPHOCYTE # 1.7 TH/MM3 (1.0-4.8); MEAN CELL VOLUME 89.4 FL (80.0-100.0); MEAN CORPUSCULAR HEMOGLOBIN 30.8 PG (27.0-34.0); MEAN CORPUSCULAR HGB CONC 34.5 % (32.0-36.0); MONO % 6.4 % (0.0-8.0); NEUT % 83.7 % (16.0-70.0); PLATELET COUNT 123 TH/MM3 (150-450); RED BLOOD COUNT 3.93 MIL/MM3 (4.00-5.30); WHITE BLOOD COUNT 17.9 TH/MM3 (4.0-11.0)
[2016-10-12 08:17] LABS: HEMO FLAGS AUTO DIFF
[2016-10-12 08:58] LABS: BANDS 3 % (0-6); MYELOCYTES 2 % (0-0); NEUTROPHIL # MANUAL DIFF 15.2 TH/MM3 (1.8-7.7); PLATELET ESTIMATE SMEAR LOW (NORMAL); PLATELET MORPHOLOGY NORMAL (NORMAL); POLYS (SEG NEUTROPHILS) 80 % (16-70); SCAN/DIFF FINAL DIFF MANUAL; WBC DIFF SAMPLE 100
[2016-10-12] MEDS: levETIRAcetam 500 MG TAB PO SCH ×2 (09:00→22:20)
[2016-10-12] MEDS: PANTOPRAZOLE SOD 40 MG DELAYED RELEASE TAB PO SCH (09:19)
[2016-10-12] MEDS: DOCUSATE SODIUM 50 MG/SENNA 8.6 MG TAB PO SCH ×2 (09:19→22:33)
[2016-10-12] MEDS: FUROSEMIDE 20 MG TAB PO SCH ×2 (09:19→17:21)
[2016-10-12] MEDS: CARVEDILOL 6.25 MG TAB PO SCH ×2 (09:20→22:33)
[2016-10-12] MEDS: SODIUM CHLORIDE 0.9% FLUSH 5 ML FLUSH IVF SCH ×2 (09:43→22:34)
[2016-10-12] MEDS: ENOXAPARIN SODIUM 60 MG/0.6 ML SYRINGE SQ SCH ×2 (11:36→22:35)
--- NOTE | 2016-10-12 15:44 | HHI.PR ---
Subjective Remarks Follow-up for glioblastoma, DVT, anxiety. The patient denies any specific medical complaints today. Has continued edema at LLE, denies any associated pain. Denies any chest pain or shortness of breath. O2 sat 100% on room air. RN reports a tiny bleeding spot at one the the jimmie, patient admits to hitting the spot with her glasses, no significant bleeding currently. Objective Vitals Vital Signs Date Time Temp Pulse Resp B/P Pulse Ox O2 Delivery O2 Flow Rate FiO2 10/12/16 12:12 96.4 67 22 122/76 100 10/12/16 07:47 96.7 63 22 117/73 100 10/12/16 04:14 97.6 63 17 142/81 100 10/12/16 00:12 97.5 60 17 122/73 98 10/11/16 20:04 97.2 57 17 136/74 100 10/11/16 19:35 17 10/11/16 18:02 69 10/11/16 16:00 98.1 65 20 146/90 100 I/O 10/11/16 10/11/16 10/11/16 10/12/16 10/12/16 10/12/16 07:00 15:00 23:00 07:00 15:00 23:00 Intake Total 600 ml 120 ml 120 ml 600 ml Output Total 500 ml 2700 ml Balance -500 ml -2100 ml 120 ml 120 ml 600 ml Intake Oral 600 ml 120 ml 120 ml 600 ml Output Urine Total 500 ml 2700 ml # Voids 2 3 3 # Bowel Movements 0 1 1 3 Result Diagram: 10/12/16 0750 10/10/16 0734 Imaging Last Impressions Lower Extremity Ultrasound 10/11/16 0000 Signed Impressions: Service Date/Time: Tuesday, October 11, 2016 21:47 - CONCLUSION: Diffuse left lower extremity venous thrombosis. Bon Pride MD Head CT 10/05/16 0000 Signed Impressions: Service Date/Time: Wednesday, October 05, 2016 19:09 - CONCLUSION: Expected postsurgical changes following right-sided drain placement. No findings to suggest significant acute hemorrhage, edema or mass effect. Haja Barker MD Abdomen X-Ray 09/27/16 1500 Signed Impressions: Service Date/Time: Tuesday, September 27, 2016 15:03 - CONCLUSION: 1. There is an IVC filter present overlying the right aspect of the L2 and L3 vertebral bodies. Otherwise, no radiopaque foreign body is seen. 2. Otherwise, no acute finding is visualized. Bon Carbajal MD IVC Filter Placement X-Ray 09/27/16 0000 Signed Impressions: Service Date/Time: Tuesday, September 27, 2016 13:13 - CONCLUSION: Uncomplicated inferior vena cava filter placement as above. This is a retrievable device and can be retrieved up to one year from its date of placement. Flynn Canales Jr., MD Chest X-Ray 09/26/16 0600 Signed Impressions: Service Date/Time: Monday, September 26, 2016 03:22 - CONCLUSION: No acute disease. Bon Garcia MD Chest CT 09/25/16 0000 Signed Impressions: Service Date/Time: Sunday, September 25, 2016 16:38 - CONCLUSION: 1. Positive for pulmonary embolic disease. 2. No evidence for metastatic disease to the thorax. Eleuterio Pyle MD Abdomen/Pelvis CT 09/25/16 0000 Signed Impressions: Service Date/Time: Sunday, September 25, 2016 16:38 - CONCLUSION: 1. Positive for pulmonary embolus right lower lobe. 2. No evidence for metastatic disease within the abdomen and pelvis. Eleuterio Pyle MD Neck Magnetic Resonance Angiography 09/24/16 0000 Signed Impressions: Service Date/Time: Saturday, September 24, 2016 14:31 - CONCLUSION: Normal examination for a patient of this age. Eleuterio Pyle MD Head Magnetic Resonance Angiography 09/23/16 0000 Signed Impressions: Service Date/Time: Friday, September 23, 2016 09:52 - CONCLUSION: Significant intracranial atherosclerotic disease, otherwise negative. Ciaran Davis MD FACR Brain MRI 09/23/16 0000 Signed Impressions: Service Date/Time: Friday, September 23, 2016 09:52 - CONCLUSION: Abnormality in the right parietal occipital region that does show some blood clots and vasogenic edema. This probably represents an ischemic event; however, the amount of vasogenic edema is concerning. MRI with contrast would be of benefit when the patient is clinically stable. Ciaran Davis MD FACR Objective Remarks GENERAL: Well-developed well-nourished elderly female patient in [facility]. SKIN: Warm and dry. Right temporal surgical site clean, jimmie in place, very tiny spot of bleeding at staple site, starting to scab over. HEENT: Normocephalic. Pupils equal and round. Mucous membranes pink and moist. CARDIOVASCULAR: Regular rate and rhythm. No murmur appreciated. RESPIRATORY: No accessory muscle use. Clear to auscultation. Breath sounds equal bilaterally. GASTROINTESTINAL: Abdomen soft, non-tender, nondistended. Bowel sounds x4. MUSCULOSKELETAL: No obvious deformities. No clubbing or cyanosis. LLE with diffuse 3+ edema, no erythema, nontender. Trace RLE edema. NEUROLOGICAL: Awake and alert, oriented x4 today. Moves upper and lower extremities spontaneously. Normal speech. PSYCHIATRIC: Appropriate mood and occasionally confused affect; insight and judgment fair. Medications and IVs Current Medications Medications (Trade) Dose Ordered Sig/Hardeep Route Start Time Stop Time Status Last Admin (D50w (Vial) Inj) 25 ml UNSCH PRN IV PUSH 09/23/16 03:00 (Glucagon Inj) 1 mg UNSCH PRN OTHER 09/23/16 03:00 (Apresoline Inj) 10 mg Q4H PRN IV PUSH 09/23/16 03:30 10/05/16 20:21 (Trandate Inj) 10 mg Q4H PRN IV PUSH 09/23/16 03:30 Miscellaneous Information 1 Q361D XX 09/23/16 03:30 09/23/16 03:30 (Chlorhexidine 2% Cloth) 3 pack Taper DAILY@04 TOP 09/23/16 04:00 09/19/17 03:59 10/07/16 03:23 (Chlorhexidine 2% Cloth) 3 pack UNSCH PRN TOP 09/23/16 03:30 (Haldol Inj) 2 mg Q6H PRN IV PUSH 09/24/16 01:00 09/24/16 05:36 (Tylenol) 650 mg Q4H PRN PO 09/28/16 14:30 10/11/16 18:34 (Coreg) 6.25 mg Q12HR PO 09/29/16 21:00 10/12/16 09:20 (Keppra) 500 mg Q12HR PO 09/30/16 21:00 10/12/16 09:00 (Norvasc) 5 mg DAILY PO 10/03/16 09:00 Hold 10/08/16 08:43 (Vasotec Inj) 1.25 mg Q6H PRN IV PUSH 10/02/16 23:00 10/04/16 21:12 (NS Flush) 2 ml UNSCH PRN IVF 10/05/16 14:45 (NS Flush) 2 ml BID IVF 10/05/16 21:00 10/12/16 09:43 (Dulcolax Supp) 10 mg DAILY PRN DC 10/05/16 14:45 (Protonix) 40 mg DAILY PO 10/06/16 09:00 10/12/16 09:19 (Zofran Inj) 4 mg Q6H PRN IV 10/05/16 14:45 Calcium Gluconate 1 gm 1 gm UNSCH PRN IV 10/05/16 14:45 Potassium Chloride 100 ml @ 50 mls/hr UNSCH PRN IV 10/05/16 14:45 (Magnesium Sulfate Inj/NS Inj) 108 ml @ 108 mls/hr UNSCH PRN IV 10/05/16 14:45 ([place] 10-325 Mg) 1 tab Q4H PRN PO 10/05/16 14:45 10/09/16 20:12 ([place] 10-325 Mg) 2 tab Q4H PRN PO 10/05/16 14:45 (Morphine Inj) 2 mg Q2H PRN IV PUSH 10/05/16 14:45 10/05/16 20:05 (Morphine Inj) 4 mg Q2H PRN IV PUSH 10/05/16 14:45 (Decadron) 4 mg Q6HR PO 10/08/16 18:00 10/12/16 12:13 (Lasix) 20 mg BID@09,18 PO 10/09/16 18:00 10/12/16 09:19 (Yocasta-Colace) 1 tab BID PO 10/09/16 13:00 10/12/16 09:19 (Milk Of Magnesia Liq) 30 ml DAILY PRN PO 10/09/16 13:00 (Vistaril) 25 mg Q4H PRN PO 10/11/16 17:45 10/11/16 18:33 (Lovenox Inj) 60 mg Q12H SQ 10/11/16 22:00 10/12/16 11:36 Date of Removal: Oct 11, 2016 A/P Assessment and Plan 71-year-old female with a past medical history of schizophrenia and A. fib who was initially admitted with hallucinations, elevated troponin, and intracranial hemorrhage Acute R temporal lobe hemorrhage with edema with Glioblastoma multiforme, WHO IV - MRI with contrast 09/24/16 shows Right occipitotemporal mass 5x 3 cm on MRI , s /p R temporal lobe biopsy 09/28/16, s/p craniotomy with resection right temporal lobe mass 10/05/16 - Neurosurgery following, continue oral Keppra for seizure prophylaxis, continue Decadron 2 mg q6h. Lortab and morphine for pain. - Neurology Dr. Chung following. - cleared for d/c to rehab per NS Schizophrenia, Anxiety, delirium - Haldol as needed for agitation - started on hydroxyzine prn Acute respiratory failure, RLL pulmonary embolism with DVT RLE- Intubated earlier this admission 09/24/16 for airway protection and obtaining an MRI. Self extubated 09/25/16. -Respiratory failure resolved, Now stable on room air -Continue incentive spirometry, albuterol. -CTA 09/25/16 RLL pulmonary embolism. Initially held anticoagulation per neurosurgery -Doppler U/S shows RLE DVT -S/p IVC filter 09/[address] Arias - Repeat Doppler U/S 10/11 showed diffuse LLE venous thrombosis -Restarted full anticoagulation with Lovenox 60u sq bid per hematology (cleared by neurosurgery to restart anticoagulation) Paroxysmal atrial fibrillation (currently in sinus rhythm) Hypertension Type II NSTEMI on admission ?Takotsubo cardiomyopathy (EF 30-35% with unknown baseline) -s/p aspirin 325 in the ED on admission but was not a candidate for subsequent ASA due to discovery of ICH. -Echo 09/23 showed EF 30-35% ?takotsubo syndrome vs CAD. -Medical management per Dr. aPrk from cardiology, continue Coreg. Diuresis as below. WHO IV glioblastoma Multiforme RLL Pulmonary embolism - Heme oncology is following. Now s/p resection of mass. Treatment with Temodar and radiation per oncology. - Has been evaluated by radiation oncology, Dr. Conner. Coagulopathy: Thrombocytopenia and decreased fibrinogen. Transfusion to keep fibrinogen and/or platelets both greater than 100. Hematology following. Monitor CBC and fibrinogen. Leukocytosis: WBC elevated since 10/06. Afebrile. Likely elevated secondary to steroids as above. Watch for fevers or signs of infection. Hyperglycemia: Low-dose insulin sliding scale while on steroids. Accu-Cheks every 6 hours. Lower extremity edema: Medication effect vs 2/2 cardiomyopathy. Stopped IVF. Holding Norvasc. Started oral Lasix twice daily. KACEY hose. Monitor I's and O' s, renal function, electrolytes. Improving. Constipation: Resolved with MoM. Continue Yocasta-Colace twice daily. DVT prophylaxis. IVC filter in place. Lovenox Protonix for GI prophylaxis Discussed with Mario Motta RN. Discharge Planning Cleared by neurosurgery. PT recommending rehab. Can discharge once rehab arrangements made. Garima Rodriguez PA-C Oct 12, 2016 15:44 Kaushik Arce MD Oct 12, 2016 17:12
[2016-10-12] MEDS: hydrOXYzine PAMOATE 25 MG CAP PO PRN ×2 (17:20→22:32)
--- NOTE | 2016-10-12 21:21 | PD.ONC.PN ---
Subjective Subjective Remarks no complaints. understanding of current situation not profound Objective Data Date Time Temp Pulse Resp B/P Pulse Ox O2 Delivery O2 Flow Rate FiO2 10/12/16 20:00 96.1 64 20 116/63 99 10/12/16 16:09 97.0 60 22 117/87 100 10/12/16 12:12 96.4 67 22 122/76 100 10/12/16 07:47 96.7 63 22 117/73 100 10/12/16 04:14 97.6 63 17 142/81 100 10/12/16 00:12 97.5 60 17 122/73 98 10/12/16 10/12/16 10/12/16 07:00 15:00 23:00 Intake Total 120 ml 600 ml Balance 120 ml 600 ml Result Diagram: 10/12/16 0750 10/10/16 0734 Laboratory Results Laboratory Tests Test 10/12/16 07:50 White Blood Count 17.9 TH/MM3 Red Blood Count 3.93 MIL/MM3 Hemoglobin 12.1 GM/DL Hematocrit 35.2 % Mean Corpuscular Volume 89.4 FL Mean Corpuscular Hemoglobin 30.8 PG Mean Corpuscular Hemoglobin 34.5 % Concent Red Cell Distribution Width 14.0 % Platelet Count 123 TH/MM3 Mean Platelet Volume 9.7 FL Neutrophils (%) (Auto) 83.7 % Lymphocytes (%) (Auto) 9.4 % Monocytes (%) (Auto) 6.4 % Eosinophils (%) (Auto) 0.1 % Basophils (%) (Auto) 0.4 % Neutrophils # (Auto) 14.9 TH/MM3 Lymphocytes # (Auto) 1.7 TH/MM3 Monocytes # (Auto) 1.1 TH/MM3 Eosinophils # (Auto) 0.0 TH/MM3 Basophils # (Auto) 0.1 TH/MM3 CBC Comment AUTO DIFF Differential Total Cells 100 Counted Neutrophils % (Manual) 80 % Band Neutrophils % 3 % Lymphocytes % 11 % Monocytes % 4 % Neutrophils # (Manual) 15.2 TH/MM3 Myelocytes 2 % Differential Comment FINAL DIFF MANUAL Platelet Estimate LOW Platelet Morphology Comment NORMAL Red Cell Morphology Comment NORMAL Fibrinogen 104 mg/dL Imaging Studies Last 48 hours Impressions Lower Extremity Ultrasound 10/11/16 0000 Signed Impressions: Service Date/Time: Tuesday, October 11, 2016 21:47 - CONCLUSION: Diffuse left lower extremity venous thrombosis. Bon Pride MD Administered Medications Medications (Trade) Dose Ordered Sig/Hardeep Route PRN Reason Start Time Stop Time Status Last Admin Dose Admin Hydralazine HCl (Apresoline Inj) 10 mg Q4H PRN IV PUSH SBP >160 09/23/16 03:30 10/05/16 20:21 Miscellaneous Information 1 Q361D XX 09/23/16 03:30 09/23/16 03:30 Chlorhexidine Gluconate (Chlorhexidine 2% Cloth) 3 pack Taper DAILY@04 TOP 09/23/16 04:00 09/19/17 03:59 10/07/16 03:23 Haloperidol Lactate (Haldol Inj) 2 mg Q6H PRN IV PUSH AGITATION AND/OR HALLUCINATION 09/24/16 01:00 09/24/16 05:36 Acetaminophen (Tylenol) 650 mg Q4H PRN PO TEMP>101F, HEADACHE 09/28/16 14:30 10/11/16 18:34 Carvedilol (Coreg) 6.25 mg Q12HR PO 09/29/16 21:00 10/12/16 09:20 Levetriacetam (Keppra) 500 mg Q12HR PO 09/30/16 21:00 10/12/16 09:00 Amlodipine Besylate (Norvasc) 5 mg DAILY PO 10/03/16 09:00 Hold 10/08/16 08:43 Enalaprilat (Vasotec Inj) 1.25 mg Q6H PRN IV PUSH SBP>160, DBP>90 10/02/16 23:00 10/04/16 21:12 IV Flush (NS Flush) 2 ml BID IVF 10/05/16 21:00 10/12/16 09:43 Pantoprazole Sodium (Protonix) 40 mg DAILY PO 10/06/16 09:00 10/12/16 09:19 Acetaminophen/ Hydrocodone Bitart ([place] 10-325 Mg) 1 tab Q4H PRN PO PAIN SCALE 1 TO 5 10/05/16 14:45 10/09/16 20:12 Morphine Sulfate (Morphine Inj) 2 mg Q2H PRN IV PUSH PAIN SCALE 1 TO 6 10/05/16 14:45 10/05/16 20:05 Dexamethasone (Decadron) 4 mg Q6HR PO 10/08/16 18:00 10/12/16 17:20 Furosemide (Lasix) 20 mg BID@09,18 PO 10/09/16 18:00 10/12/16 17:21 Senna/Docusate Sodium (Yocasta-Colace) 1 tab BID PO 10/09/16 13:00 10/12/16 09:19 Magnesium Hydroxide (Milk Of Magnlupe Liq) 30 ml DAILY PRN PO CONSTIPATION 10/09/16 13:00 10/12/16 17:20 Hydroxyzine Pamoate (Vistaril) 25 mg Q4H PRN PO anxiety 10/11/16 17:45 10/12/16 17:20 Enoxaparin Sodium (Lovenox Inj) 60 mg Q12H SQ 10/11/16 22:00 10/12/16 11:36 Objective Remarks GENERAL: Well-nourished, no distress SKIN: Warm and dry. HEAD: surgical site healing well EYES: No scleral icterus. No injection or drainage. NECK: Supple, trachea midline. No JVD or lymphadenopathy. LYMPHATIC: No adenopathy. CARDIOVASCULAR: Regular rate and rhythm without murmurs. RESPIRATORY: Breath sounds equal bilaterally. No accessory muscle use. GASTROINTESTINAL: Abdomen soft, non-tender, nondistended. EXTREMITIES: +2 swelling and tenderness of left calf MUSCULOSKELETAL: Adequate muscle tone. NEUROLOGICAL: No obvious focal deficit. Awake, alert, and oriented x3. Assessment/Plan Assessment 1: new extensive DVT left lower extremity. Lovenex started at less then full dose. If no problems will escalate dose. 2: glioblastoma: outpatient XRT and Temodar, hopefully we can taper steroids soon as will have problems with large doses especially in terms of rehab. 3: Discussed with her Ronal Romo. Kenroy Soto MD Oct 12, 2016 21:21
[2016-10-12] MEDS: ACETAMINOPHEN 325 MG TAB PO PRN (22:34)
[2016-10-13] VITALS (8 sets, daily range): BP systolic 97–146; BP diastolic 55–75; PULSE 50–58; RESP 20; TEMP 96.1–97.4; O2SAT 98–99
[2016-10-13] MEDS: CHLORHEXIDINE GLUCONATE 2 % 1 PACK (2 CLOTHS) TOP SCH (04:00)
[2016-10-13] MEDS: ACETAMINOPHEN 325 MG TAB PO PRN ×2 (06:34→13:14)
[2016-10-13] MEDS: DEXAMETHASONE 4 MG TAB PO SCH ×3 (06:35→17:27)
[2016-10-13] MEDS: INSULIN ASPART SUPPLEMENTAL SCALE SQ SCH ×4 (06:36→21:00)
[2016-10-13 08:26] LABS: AUTOMATED NEUTROPHIL # 15.8 TH/MM3 (1.8-7.7); BASOPHIL % 0.2 % (0.0-2.0); LYMPH % 8.2 % (9.0-44.0); LYMPHOCYTE # 1.6 TH/MM3 (1.0-4.8); MEAN CELL VOLUME 87.8 FL (80.0-100.0); MEAN CORPUSCULAR HEMOGLOBIN 30.2 PG (27.0-34.0); MEAN CORPUSCULAR HGB CONC 34.4 % (32.0-36.0); MONO % 8.1 % (0.0-8.0); NEUT % 83.5 % (16.0-70.0); PLATELET COUNT 129 TH/MM3 (150-450); RED BLOOD COUNT 3.65 MIL/MM3 (4.00-5.30); WHITE BLOOD COUNT 18.9 TH/MM3 (4.0-11.0)
[2016-10-13 08:35] LABS: HEMO FLAGS AUTO DIFF
[2016-10-13] MEDS: FUROSEMIDE 20 MG TAB PO SCH ×2 (08:45→17:27)
[2016-10-13] MEDS: DOCUSATE SODIUM 50 MG/SENNA 8.6 MG TAB PO SCH ×2 (08:46→22:40)
[2016-10-13] MEDS: CARVEDILOL 6.25 MG TAB PO SCH ×2 (08:47→22:31)
[2016-10-13] MEDS: PANTOPRAZOLE SOD 40 MG DELAYED RELEASE TAB PO SCH (08:47)
[2016-10-13] MEDS: levETIRAcetam 500 MG TAB PO SCH ×2 (08:48→22:31)
[2016-10-13] MEDS: ENOXAPARIN SODIUM 60 MG/0.6 ML SYRINGE SQ SCH ×2 (08:51→22:31)
[2016-10-13] MEDS: SODIUM CHLORIDE 0.9% FLUSH 5 ML FLUSH IVF SCH ×2 (08:52→22:40)
[2016-10-13 09:07] LABS: PLATELET ESTIMATE SMEAR LOW (NORMAL); PLATELET MORPHOLOGY ENLARGED (NORMAL); SCAN/DIFF AUTO DIFF CONFIRMED
--- NOTE | 2016-10-13 09:39 | HHI.PR ---
Subjective Remarks Follow-up for glioblastoma, DVT, anxiety. The patient reports her left leg swelling has improved, denies pain. She states her anxiety has improved. Denies any new medical complaints. She is awaiting to go to rehab. Objective Vitals Vital Signs Date Time Temp Pulse Resp B/P Pulse Ox O2 Delivery O2 Flow Rate FiO2 10/13/16 07:44 97.2 52 20 146/75 98 10/13/16 04:00 96.6 52 20 127/67 99 10/13/16 00:00 96.8 58 20 139/68 99 10/12/16 20:00 96.1 64 20 116/63 99 10/12/16 16:09 97.0 60 22 117/87 100 10/12/16 12:12 96.4 67 22 122/76 100 10/12/16 10:37 58 I/O 10/12/16 10/12/16 10/12/16 10/13/16 10/13/16 10/13/16 07:00 15:00 23:00 07:00 15:00 23:00 Intake Total 120 ml 600 ml 360 ml 120 ml Balance 120 ml 600 ml 360 ml 120 ml Intake Oral 120 ml 600 ml 360 ml 120 ml # Voids 3 3 0 1 # Bowel Movements 1 3 0 0 Result Diagram: 10/13/16 0731 10/10/16 0734 Imaging Last Impressions Lower Extremity Ultrasound 10/11/16 0000 Signed Impressions: Service Date/Time: Tuesday, October 11, 2016 21:47 - CONCLUSION: Diffuse left lower extremity venous thrombosis. Bon Pride MD Head CT 10/05/16 0000 Signed Impressions: Service Date/Time: Wednesday, October 05, 2016 19:09 - CONCLUSION: Expected postsurgical changes following right-sided drain placement. No findings to suggest significant acute hemorrhage, edema or mass effect. Haja Barker MD Abdomen X-Ray 09/27/16 1500 Signed Impressions: Service Date/Time: Tuesday, September 27, 2016 15:03 - CONCLUSION: 1. There is an IVC filter present overlying the right aspect of the L2 and L3 vertebral bodies. Otherwise, no radiopaque foreign body is seen. 2. Otherwise, no acute finding is visualized. Bon Carbajal MD IVC Filter Placement X-Ray 09/27/16 0000 Signed Impressions: Service Date/Time: Tuesday, September 27, 2016 13:13 - CONCLUSION: Uncomplicated inferior vena cava filter placement as above. This is a retrievable device and can be retrieved up to one year from its date of placement. Flynn Canales Jr., MD Chest X-Ray 09/26/16 0600 Signed Impressions: Service Date/Time: Monday, September 26, 2016 03:22 - CONCLUSION: No acute disease. Bon Garcia MD Chest CT 09/25/16 0000 Signed Impressions: Service Date/Time: Sunday, September 25, 2016 16:38 - CONCLUSION: 1. Positive for pulmonary embolic disease. 2. No evidence for metastatic disease to the thorax. Eleuterio Pyle MD Abdomen/Pelvis CT 09/25/16 0000 Signed Impressions: Service Date/Time: Sunday, September 25, 2016 16:38 - CONCLUSION: 1. Positive for pulmonary embolus right lower lobe. 2. No evidence for metastatic disease within the abdomen and pelvis. Eleuterio Pyle MD Neck Magnetic Resonance Angiography 09/24/16 0000 Signed Impressions: Service Date/Time: Saturday, September 24, 2016 14:31 - CONCLUSION: Normal examination for a patient of this age. Eleuterio Pyle MD Head Magnetic Resonance Angiography 09/23/16 0000 Signed Impressions: Service Date/Time: Friday, September 23, 2016 09:52 - CONCLUSION: Significant intracranial atherosclerotic disease, otherwise negative. Ciaran Davis MD FACR Brain MRI 09/23/16 0000 Signed Impressions: Service Date/Time: Friday, September 23, 2016 09:52 - CONCLUSION: Abnormality in the right parietal occipital region that does show some blood clots and vasogenic edema. This probably represents an ischemic event; however, the amount of vasogenic edema is concerning. MRI with contrast would be of benefit when the patient is clinically stable. Ciaran Davis MD FACR Objective Remarks GENERAL: Well-developed well-nourished elderly female patient in [facility]. SKIN: Warm and dry. Right temporal surgical site clean, jimmie in place, very tiny spot of bleeding at staple site, starting to scab over. HEENT: Normocephalic. Pupils equal and round. Mucous membranes pink and moist. CARDIOVASCULAR: Regular rate and rhythm. No murmur appreciated. RESPIRATORY: No accessory muscle use. Clear to auscultation. Breath sounds equal bilaterally. GASTROINTESTINAL: Abdomen soft, non-tender, nondistended. Bowel sounds x4. MUSCULOSKELETAL: No obvious deformities. No clubbing or cyanosis. LLE with diffuse 3+ edema, no erythema, nontender. Trace RLE edema. NEUROLOGICAL: Awake and alert, oriented x4 today. Moves upper and lower extremities spontaneously. Normal speech. PSYCHIATRIC: Appropriate mood and occasionally confused affect; insight and judgment fair. Medications and IVs Current Medications Medications (Trade) Dose Ordered Sig/Hardeep Route Start Time Stop Time Status Last Admin (D50w (Vial) Inj) 25 ml UNSCH PRN IV PUSH 09/23/16 03:00 (Glucagon Inj) 1 mg UNSCH PRN OTHER 09/23/16 03:00 (Apresoline Inj) 10 mg Q4H PRN IV PUSH 09/23/16 03:30 10/05/16 20:21 (Trandate Inj) 10 mg Q4H PRN IV PUSH 09/23/16 03:30 Miscellaneous Information 1 Q361D XX 09/23/16 03:30 09/23/16 03:30 (Chlorhexidine 2% Cloth) 3 pack Taper DAILY@04 TOP 09/23/16 04:00 09/19/17 03:59 10/07/16 03:23 (Chlorhexidine 2% Cloth) 3 pack UNSCH PRN TOP 09/23/16 03:30 (Haldol Inj) 2 mg Q6H PRN IV PUSH 09/24/16 01:00 09/24/16 05:36 (Tylenol) 650 mg Q4H PRN PO 09/28/16 14:30 10/13/16 06:34 (Coreg) 6.25 mg Q12HR PO 09/29/16 21:00 10/13/16 08:47 (Keppra) 500 mg Q12HR PO 09/30/16 21:00 10/13/16 08:48 (Norvasc) 5 mg DAILY PO 10/03/16 09:00 Hold 10/08/16 08:43 (Vasotec Inj) 1.25 mg Q6H PRN IV PUSH 10/02/16 23:00 10/04/16 21:12 (NS Flush) 2 ml UNSCH PRN IVF 10/05/16 14:45 (NS Flush) 2 ml BID IVF 10/05/16 21:00 10/13/16 08:52 (Dulcolax Supp) 10 mg DAILY PRN RI 10/05/16 14:45 (Protonix) 40 mg DAILY PO 10/06/16 09:00 10/13/16 08:47 (Zofran Inj) 4 mg Q6H PRN IV 10/05/16 14:45 Calcium Gluconate 1 gm 1 gm UNSCH PRN IV 10/05/16 14:45 Potassium Chloride 100 ml @ 50 mls/hr UNSCH PRN IV 10/05/16 14:45 (Magnesium Sulfate Inj/NS Inj) 108 ml @ 108 mls/hr UNSCH PRN IV 10/05/16 14:45 ([place] 10-325 Mg) 1 tab Q4H PRN PO 10/05/16 14:45 10/09/16 20:12 ([place] 10-325 Mg) 2 tab Q4H PRN PO 10/05/16 14:45 (Morphine Inj) 2 mg Q2H PRN IV PUSH 10/05/16 14:45 10/05/16 20:05 (Morphine Inj) 4 mg Q2H PRN IV PUSH 10/05/16 14:45 (Decadron) 4 mg Q6HR PO 10/08/16 18:00 10/13/16 06:35 (Lasix) 20 mg BID@09,18 PO 10/09/16 18:00 10/13/16 08:45 (Yocasta-Colace) 1 tab BID PO 10/09/16 13:00 10/13/16 08:46 (Milk Of Magnesia Liq) 30 ml DAILY PRN PO 10/09/16 13:00 10/12/16 17:20 (Vistaril) 25 mg Q4H PRN PO 10/11/16 17:45 10/12/16 22:32 (Lovenox Inj) 60 mg Q12H SQ 10/11/16 22:00 10/13/16 08:51 Urinary Catheter: No Date of Removal: Oct 11, 2016 A/P Assessment and Plan 71-year-old female with a past medical history of schizophrenia and A. fib who was initially admitted with hallucinations, elevated troponin, and intracranial hemorrhage Acute R temporal lobe hemorrhage with edema with Glioblastoma multiforme, WHO IV - MRI with contrast 09/24/16 shows Right occipitotemporal mass 5x 3 cm on MRI , s /p R temporal lobe biopsy 09/28/16, s/p craniotomy with resection right temporal lobe mass 10/05/16 - Neurosurgery following, continue oral Keppra for seizure prophylaxis, continue Decadron 2 mg q6h. Lortab and morphine for pain. - Neurology Dr. Chung following. - cleared for d/c to rehab per NS Schizophrenia, Anxiety, delirium - Haldol as needed for agitation - started on hydroxyzine prn Acute respiratory failure, RLL pulmonary embolism with DVT RLE- Intubated earlier this admission 09/24/16 for airway protection and obtaining an MRI. Self extubated 09/25/16. -Respiratory failure resolved, Now stable on room air -Continue incentive spirometry, albuterol. -CTA 09/25/16 RLL pulmonary embolism. Initially held anticoagulation per neurosurgery -Doppler U/S shows RLE DVT -S/p IVC filter 09/[address] Arias - Repeat Doppler U/S 10/11 showed diffuse LLE venous thrombosis -Cleared by neurosurgery to restart anticoagulation -Restarted anticoagulation with Lovenox 60u sq bid per hematology, may increase to full strength (100u bid) if no problems per Paroxysmal atrial fibrillation (currently in sinus rhythm) Hypertension Type II NSTEMI on admission ?Takotsubo cardiomyopathy (EF 30-35% with unknown baseline) -s/p aspirin 325 in the ED on admission but was not a candidate for subsequent ASA due to discovery of ICH. -Echo 09/23 showed EF 30-35% ?takotsubo syndrome vs CAD. -Medical management per Dr. Park from cardiology, continue Coreg. Diuresis as below. WHO IV glioblastoma Multiforme RLL Pulmonary embolism - Heme oncology is following. Now s/p resection of mass. Treatment with Temodar and radiation per oncology. - Has been evaluated by radiation oncology, Dr. Conner. Coagulopathy: Thrombocytopenia and decreased fibrinogen. Transfusion to keep fibrinogen and/or platelets both greater than 100. Hematology following. Monitor CBC and fibrinogen. Leukocytosis: WBC elevated since 10/06. Afebrile. Likely elevated secondary to steroids as above. Watch for fevers or signs of infection. Hyperglycemia: Low-dose insulin sliding scale while on steroids. Accu-Cheks every 6 hours. Lower extremity edema: Medication effect vs 2/2 cardiomyopathy. Stopped IVF. Holding Norvasc. Started oral Lasix twice daily. KACEY hose. Monitor I's and O' s, renal function, electrolytes. Improving. Constipation: Resolved with MoM. Continue Yocasta-Colace twice daily. DVT prophylaxis. IVC filter in place. Lovenox 40u sq qd. Protonix for GI prophylaxis Written by Garima Rodriguez, acting as scribe for Dr. Arce on 10/13/16 at 09:02. All or portions of this note were transcribed by scribe []. I, Dr. Kaushik Arce personally performed the history, physical exam, and medical decision making; and confirmed the accuracy of the information in the transcribed note. Authenticated by Dr. Kaushik Arce on 10/13/16 at 14:55. Discharge Planning Cleared by neurosurgery. PT recommending rehab. Can discharge once rehab arrangements made. Garima Rodriguez PA-C Oct 13, 2016 09:39 Kaushik Arce MD Oct 13, 2016 14:55
[2016-10-13] MEDS: ACETAMINOPHEN/HYDROcodone 325 MG/10 MG TAB PO PRN (14:59)
[2016-10-14] VITALS (8 sets, daily range): BP systolic 115–132; BP diastolic 59–68; PULSE 46–66; RESP 20; TEMP 95.5–97; O2SAT 99–100
[2016-10-14] MEDS: DEXAMETHASONE 4 MG TAB PO SCH ×3 (00:25→11:25)
[2016-10-14] MEDS: CHLORHEXIDINE GLUCONATE 2 % 1 PACK (2 CLOTHS) TOP SCH (02:32)
[2016-10-14] MEDS: INSULIN ASPART SUPPLEMENTAL SCALE SQ SCH ×3 (06:46→16:00)
[2016-10-14] MEDS: CARVEDILOL 6.25 MG TAB PO SCH (09:00)
[2016-10-14] MEDS: ENOXAPARIN SODIUM 60 MG/0.6 ML SYRINGE SQ SCH (09:04)
[2016-10-14] MEDS: PANTOPRAZOLE SOD 40 MG DELAYED RELEASE TAB PO SCH (09:05)
[2016-10-14] MEDS: levETIRAcetam 500 MG TAB PO SCH (09:05)
[2016-10-14] MEDS: FUROSEMIDE 20 MG TAB PO SCH (09:06)
[2016-10-14] MEDS: DOCUSATE SODIUM 50 MG/SENNA 8.6 MG TAB PO SCH (09:06)
[2016-10-14] MEDS: SODIUM CHLORIDE 0.9% FLUSH 5 ML FLUSH IVF SCH (09:10)
[2016-10-14] MEDS ORDERED: HYDR-3583 PO ×2 (09:23→17:03)
[2016-10-14] MEDS: ACETAMINOPHEN/HYDROcodone 325 MG/10 MG TAB PO PRN (12:59)
--- NOTE | 2016-10-14 13:01 | HHI.DCPOC ---
Discharge Care Plan Diagnosis: (1) Glioblastoma multiforme Your Health Problems Are: Difficulty with ADL Exercise Tolerance Goals to Promote Your Health * To prevent worsening of your condition and complications * To maintain your health at the optimal level Directions to Meet Your Goals Take your medications as prescribed Follow your dietary instruction Follow activity as directed Keep your appointments as scheduled Take your immunizations and boosters as scheduled If your symptoms worsen call your PCP, if no PCP go to Urgent Care Center or Emergency Room Smoking is Dangerous to Your Health. Avoid second hand smoke Call the 24-hour hour crisis hotline for domestic abuse at Kaushik Arce MD Oct 14, 2016 13:01
[2016-10-14] MEDS ORDERED: LEVE500 PO (13:04)
[2016-10-14] MEDS ORDERED: PANT40TA3 PO (13:04)
[2016-10-14] MEDS ORDERED: DEXA4TAB PO (13:04)
[2016-10-14] MEDS ORDERED: CARV6.25 PO (13:04)
[2016-10-14] MEDS ORDERED: SENN1TAB PO (13:04)
[2016-10-14] MEDS ORDERED: FURO20TA PO (13:04)
[2016-10-14] MEDS ORDERED: ENOX80P SQ (13:04)
--- NOTE | 2016-10-14 13:15 | HHI.PR ---
Subjective Remarks Follow-up for GBM, DVT. Patient seen with granddaughter and RN at bedside. Left lower extremity swelling has continued to improve. The patient does have a little bit of seeping from her scalp incision but no gross bleeding and swelling is mild. The patient complains of groin irritation with diuresis with Lasix. Objective Vitals Vital Signs Date Time Temp Pulse Resp B/P Pulse Ox O2 Delivery O2 Flow Rate FiO2 10/14/16 09:26 99 10/14/16 07:52 96.1 52 20 122/59 99 10/14/16 04:00 95.5 51 20 115/60 99 10/14/16 02:28 49 10/14/16 00:00 95.5 51 20 132/60 100 10/13/16 23:35 19 10/13/16 20:00 97.4 52 20 97/55 99 10/13/16 16:55 51 10/13/16 16:28 96.1 50 20 121/64 99 I/O 10/13/16 10/13/16 10/13/16 10/14/16 10/14/16 10/14/16 07:00 15:00 23:00 07:00 15:00 23:00 Intake Total 120 ml 360 ml 120 ml 120 ml Balance 120 ml 360 ml 120 ml 120 ml Intake Oral 120 ml 360 ml 120 ml 120 ml # Voids 1 3 1 3 # Bowel Movements 0 2 0 0 Result Diagram: 10/13/16 0731 10/10/16 0734 Imaging Last Impressions Lower Extremity Ultrasound 10/11/16 0000 Signed Impressions: Service Date/Time: Tuesday, October 11, 2016 21:47 - CONCLUSION: Diffuse left lower extremity venous thrombosis. Bon Pride MD Head CT 10/05/16 0000 Signed Impressions: Service Date/Time: Wednesday, October 05, 2016 19:09 - CONCLUSION: Expected postsurgical changes following right-sided drain placement. No findings to suggest significant acute hemorrhage, edema or mass effect. Haja Barker MD Abdomen X-Ray 09/27/16 1500 Signed Impressions: Service Date/Time: Tuesday, September 27, 2016 15:03 - CONCLUSION: 1. There is an IVC filter present overlying the right aspect of the L2 and L3 vertebral bodies. Otherwise, no radiopaque foreign body is seen. 2. Otherwise, no acute finding is visualized. Bon Carbajal MD IVC Filter Placement X-Ray 09/27/16 0000 Signed Impressions: Service Date/Time: Tuesday, September 27, 2016 13:13 - CONCLUSION: Uncomplicated inferior vena cava filter placement as above. This is a retrievable device and can be retrieved up to one year from its date of placement. Flynn Canales Jr., MD Chest X-Ray 09/26/16 0600 Signed Impressions: Service Date/Time: Monday, September 26, 2016 03:22 - CONCLUSION: No acute disease. Bon Garcia MD Chest CT 09/25/16 0000 Signed Impressions: Service Date/Time: Sunday, September 25, 2016 16:38 - CONCLUSION: 1. Positive for pulmonary embolic disease. 2. No evidence for metastatic disease to the thorax. Eleuterio Pyle MD Abdomen/Pelvis CT 09/25/16 0000 Signed Impressions: Service Date/Time: Sunday, September 25, 2016 16:38 - CONCLUSION: 1. Positive for pulmonary embolus right lower lobe. 2. No evidence for metastatic disease within the abdomen and pelvis. Eleuterio Pyle MD Neck Magnetic Resonance Angiography 09/24/16 0000 Signed Impressions: Service Date/Time: Saturday, September 24, 2016 14:31 - CONCLUSION: Normal examination for a patient of this age. Eleuterio Pyle MD Head Magnetic Resonance Angiography 09/23/16 0000 Signed Impressions: Service Date/Time: Friday, September 23, 2016 09:52 - CONCLUSION: Significant intracranial atherosclerotic disease, otherwise negative. Ciaran Davis MD FACR Brain MRI 09/23/16 0000 Signed Impressions: Service Date/Time: Friday, September 23, 2016 09:52 - CONCLUSION: Abnormality in the right parietal occipital region that does show some blood clots and vasogenic edema. This probably represents an ischemic event; however, the amount of vasogenic edema is concerning. MRI with contrast would be of benefit when the patient is clinically stable. Ciaran Davis MD FACR Objective Remarks GENERAL: Well-developed well-nourished. In no acute distress. Sitting up in a chair. SKIN: Warm and dry. Right temporal surgical site clean, and family mildly swollen, scabbing and scant seeping, no bleeding. HEENT: Normocephalic. Pupils equal and round. Mucous membranes pink and moist. CARDIOVASCULAR: Regular rate and rhythm. No murmur appreciated. RESPIRATORY: No accessory muscle use. Clear to auscultation. Breath sounds equal bilaterally. GASTROINTESTINAL: Abdomen soft, non-tender, nondistended. Bowel sounds x4. : External exam shows no vulvar erythema or irritation MUSCULOSKELETAL: No obvious deformities. No clubbing or cyanosis. LLE 2+ edema, Trace RLE edema. NEUROLOGICAL: Awake and alert. Moves upper and lower extremities spontaneously. Normal speech. PSYCHIATRIC: Appropriate mood and occasionally confused affect; insight and judgment fair. Date of Removal: Oct 11, 2016 A/P Assessment and Plan 71-year-old female with a past medical history of schizophrenia and A. fib who was initially admitted with hallucinations, elevated troponin, and intracranial hemorrhage Acute R temporal lobe hemorrhage with edema with Glioblastoma multiforme, WHO IV - MRI with contrast 09/24/16 shows Right occipitotemporal mass 5x 3 cm on MRI , s /p R temporal lobe biopsy 09/28/16, s/p craniotomy with resection right temporal lobe mass 10/05/16 - Neurosurgery following, continue oral Keppra for seizure prophylaxis, continue Decadron 2 mg q6h. Lortab and morphine for pain. - Seen by neurology, Dr. Chung - cleared for d/c to rehab per NS Schizophrenia, Anxiety, delirium - Haldol as needed for agitation - started on hydroxyzine prn Acute respiratory failure, RLL pulmonary embolism with DVT RLE- Intubated earlier this admission 09/24/16 for airway protection and obtaining an MRI. Self extubated 09/25/16. -Respiratory failure resolved, Now stable on room air -Continue incentive spirometry, albuterol. -CTA 09/25/16 RLL pulmonary embolism. Initially held anticoagulation per neurosurgery -Doppler U/S shows RLE DVT -S/p IVC filter 09/[address] Arias -Repeat Doppler U/S 10/11 showed diffuse LLE venous thrombosis -Cleared by neurosurgery to restart anticoagulation -Restarted anticoagulation with Lovenox per hematology, titrated up to 80 units twice daily today, may increase to full strength (100u bid) if no problems per Paroxysmal atrial fibrillation (currently in sinus rhythm) Hypertension Type II NSTEMI on admission ?Takotsubo cardiomyopathy (EF 30-35% with unknown baseline) -s/p aspirin 325 in the ED on admission but was not a candidate for subsequent ASA due to discovery of ICH. -Echo 09/23 showed EF 30-35% ?takotsubo syndrome vs CAD. -Medical management per Dr. Park from cardiology, continue Coreg. Diuresis as below. WHO IV glioblastoma Multiforme RLL Pulmonary embolism Bilateral lower extremity DVT, see above - Heme oncology is following. Now s/p resection of mass. Treatment with Temodar and radiation per oncology. - Has been evaluated by radiation oncology, Dr. Conner. - Lovenox per heme/onc, Dr. Soto - D/W RN, will inform neurosurgery about scalp incision seepage. Coagulopathy: Thrombocytopenia and decreased fibrinogen. Transfusion to keep fibrinogen and/or platelets both greater than 100. Hematology following. Monitor CBC and fibrinogen. Leukocytosis: WBC elevated since 10/06. Afebrile. Likely elevated secondary to steroids as above. Watch for fevers or signs of infection. Hyperglycemia: Low-dose insulin sliding scale while on steroids. Accu-Cheks every 6 hours. Lower extremity edema: Medication effect vs 09/08 cardiomyopathy vs DVT. Stopped IVF. Holding Norvasc. Started oral Lasix twice daily. KACEY hose. Monitor I's and O's, renal function, electrolytes. Improving. Constipation: Resolved with MoM. Continue Yocasta-Colace twice daily. DVT prophylaxis. IVC filter in place. Lovenox Protonix for GI prophylaxis Written by Carl Carlson, acting as scribe for Dr. Arce on 10/14/16 at 13:22. All or portions of this note were transcribed by scribe []. I, Dr. Kaushik Arce personally performed the history, physical exam, and medical decision making; and confirmed the accuracy of the information in the transcribed note. Authenticated by Dr. Kaushik Arce on 10/14/16 at 15:41. Discharge Planning Discharge to SNF when arranged Carl Carlson Oct 14, 2016 13:15 Kaushik Arce MD Oct 14, 2016 15:41
--- NOTE | 2016-10-14 13:39 | PD.ONC.PN ---
Subjective Subjective Remarks Afebrile overnight. Pt resting in bed in no distress. She states she has had some back pain that she attributes to the hospital bed. Otherwise she has no complaints. Objective Data Date Time Temp Pulse Resp B/P Pulse Ox O2 Delivery O2 Flow Rate FiO2 10/14/16 09:26 99 10/14/16 07:52 96.1 52 20 122/59 99 10/14/16 04:00 95.5 51 20 115/60 99 10/14/16 02:28 49 10/14/16 00:00 95.5 51 20 132/60 100 10/13/16 23:35 19 10/13/16 20:00 97.4 52 20 97/55 99 10/13/16 16:55 51 10/13/16 16:28 96.1 50 20 121/64 99 Result Diagram: 10/13/16 0731 10/10/16 0734 Laboratory Results Laboratory Tests Test 10/14/16 08:34 Fibrinogen 216 mg/dL Administered Medications Medications (Trade) Dose Ordered Sig/Hardeep Route PRN Reason Start Time Stop Time Status Last Admin Dose Admin Hydralazine HCl (Apresoline Inj) 10 mg Q4H PRN IV PUSH SBP >160 09/23/16 03:30 10/05/16 20:21 Miscellaneous Information 1 [id number] XX 09/23/16 03:30 09/23/16 03:30 Chlorhexidine Gluconate (Chlorhexidine 2% Cloth) 3 pack Taper DAILY@04 TOP 09/23/16 04:00 09/19/17 03:59 10/07/16 03:23 Haloperidol Lactate (Haldol Inj) 2 mg Q6H PRN IV PUSH AGITATION AND/OR HALLUCINATION 09/24/16 01:00 09/24/16 05:36 Acetaminophen (Tylenol) 650 mg Q4H PRN PO TEMP>101F, HEADACHE 09/28/16 14:30 10/13/16 13:14 Carvedilol (Coreg) 6.25 mg Q12HR PO 09/29/16 21:00 10/13/16 22:31 Levetriacetam (Keppra) 500 mg Q12HR PO 09/30/16 21:00 10/14/16 09:05 Amlodipine Besylate (Norvasc) 5 mg DAILY PO 10/03/16 09:00 Hold 10/08/16 08:43 Enalaprilat (Vasotec Inj) 1.25 mg Q6H PRN IV PUSH SBP>160, DBP>90 10/02/16 23:00 10/04/16 21:12 IV Flush (NS Flush) 2 ml BID IVF 10/05/16 21:00 10/14/16 09:10 Pantoprazole Sodium (Protonix) 40 mg DAILY PO 10/06/16 09:00 10/14/16 09:05 Acetaminophen/ Hydrocodone Bitart (Olancha 10-325 Mg) 1 tab Q4H PRN PO PAIN SCALE 1 TO 5 10/05/16 14:45 10/13/16 14:59 Acetaminophen/ Hydrocodone Bitart (Olancha 10-325 Mg) 2 tab Q4H PRN PO PAIN SCALE 6 TO 10 10/05/16 14:45 10/13/16 22:32 Morphine Sulfate (Morphine Inj) 2 mg Q2H PRN IV PUSH PAIN SCALE 1 TO 6 10/05/16 14:45 10/05/16 20:05 Dexamethasone (Decadron) 4 mg Q6HR PO 10/08/16 18:00 10/14/16 11:25 Furosemide (Lasix) 20 mg BID@09,18 PO 10/09/16 18:00 10/14/16 09:06 Senna/Docusate Sodium (Yocasta-Colace) 1 tab BID PO 10/09/16 13:00 10/14/16 09:06 Magnesium Hydroxide (Milk Of Magnesia Liq) 30 ml DAILY PRN PO CONSTIPATION 10/09/16 13:00 10/12/16 17:20 Hydroxyzine Pamoate (Vistaril) 25 mg Q4H PRN PO anxiety 10/11/16 17:45 10/12/16 22:32 Enoxaparin Sodium (Lovenox Inj) 60 mg Q12H SQ 10/11/16 22:00 10/14/16 09:04 Objective Remarks GENERAL: Chronically ill appearing female in no distress. SKIN: Warm and dry. Ecchymoses to BUE. HEAD: Normocephalic. Scant dried blood at surgical incision R posterior scalp. EYES: No injection or drainage. NECK: Supple, trachea midline. CARDIOVASCULAR: +S1/S2. No murmur. RESPIRATORY: Lungs clear throughout. Breathing unlabored. GASTROINTESTINAL: Abdomen soft, non-tender, nondistended. EXTREMITIES: LLE with edema. SCD's to BLE. NEUROLOGICAL: Mild confusion. Awake, alert. Moving all extremities. Assessment/Plan Problem List: (1) Brain mass Status: Acute Plan: --CT brain showed small focal hemorrhage involving right temporal lobe with prominent vasogenic edema. --MRI brain showed right parietal occipital mass suspicious for glioma. --S/P resection by neurosurgery on 10/05/16. (2) Thrombocytopenia Status: Acute Plan: --likely consumption--will transfuse to keep platelet count>100K s/p craniotomy (3) Pulmonary embolism Status: Acute Plan: s/p IVC filter placement on 09/27 --CTA showed PE --u/s legs: shows diffuse LLE DVT, has IVC filter in place Assessment Pt tolerating current Lovenox dose. LLE still with swelling. Her therapeutic dose on Lovenox would be 100mg BID, but with her increased risk of bleeding from the glioblastoma we will only increase her to 80mg BID. This was discussed with Dr. Ibrahim. The plan is to give her outpatient XRT as well as Temodar chemo. The exam, history, and the medical decision-making described in the above note were completed with the assistance of the mid-level provider. I reviewed and agree with the findings presented. I attest that I had a [id number] encounter with the patient on the same day, and personally performed and documented my assessment and findings in the medical record. left leg better but still significantly swollen. neurologic status unchanged and exam unchanged. Will increase the lovenex to 80 bid and leave it at this dose. This should be continued on discharge to rehab center. Judy Grewal Oct 14, 2016 13:37 Kenroy Soto MD Oct 14, 2016 18:47
--- NOTE | 2016-10-14 15:42 | HHI.DS ---
Discharge Summary Admission Date Sep 23, 2016 at 00:54 Discharge Date: Oct 14, 2016 Admitting Diagnosis AMS; ICH; elevated troponin; hyponatremia; schizoeffective (1) Glioblastoma multiforme ICD Code: C71.9 Diagnosis: Principal (2) Coagulopathy ICD Code: D68.9 Diagnosis: Principal (3) Thrombocytopenia ICD Code: D69.6 (4) Pulmonary embolism ICD Code: I26.99 Diagnosis: Principal Procedures R temporal lobe biopsy 09/28/16, s/p craniotomy with resection right temporal lobe mass 10/05/16 Brief History - From Admission 71-year-old female who reportedly was diagnosed with schizophrenia but who does not take any medications chronically presented to [facility] with one week history of paranoia and hallucinations. She said she believed people were coming into her house uninvited. She drove to her ex-daughter in-laws house and this woman's new was there and tried to redirect her as she reportedly has a h/o intermittent paranoid delusions. He took her back to her home yesterday but she was having intermittent episodes of panic so she was brought in for psychiatry evaluation. While doing psychiatric clearance, ED CREATIVE/ART DIRECTOR and physician discovered that she had elevated troponin of 1.4 with normal CKMB fraction. Creatinine is normal at 0.63. Case was discussed with cardiology who recommended medical management including heparin. Before initiation of heparin, CT brain was obtained. This demonstrated small focal hemorrhage in right temporal lobe with large amount of vasogenic edema (without shift). Patient states she has had a bifrontal headache for about a week. No n/v/ seizures. She does state that she falls frequently (2-3 times in last 2 months) but denies head trauma. She states she has noticed some left leg weakness for about a week and she states she fell in [facility] pharmacy about a week ago due to leg weakness. She has noticed some decreased sensation on the left leg as well. She denies any changes in vision or speech. She does have dysarthric speech, but she states this is chronic. She states she has been having intermittent "panic attacks" with episodes of SOB and discomfort in her chest. She states this improves when her family tries to calm her down. She denies exertional CP/ SOB or hemoptysis. She has noticed BLE pedal edema ~ 1 week. She denies prior h/ o stroke. States she saw Dr. Antonio with neurology in the past. She has atrial fibrillation but denies having been on anticoagulation CBC/BMP: 10/13/16 0731 10/10/16 0734 Significant Findings Laboratory Tests Test 10/12/16 10/13/16 10/14/16 07:50 07:31 08:34 White Blood Count 17.9 TH/MM3 18.9 TH/MM3 (4.0-11.0) (4.0-11.0) Red Blood Count 3.93 MIL/MM3 3.65 MIL/MM3 (4.00-5.30) (4.00-5.30) Platelet Count 123 TH/MM3 129 TH/MM3 (150-450) (150-450) Neutrophils (%) (Auto) 83.7 % 83.5 % (16.0-70.0) (16.0-70.0) Neutrophils # (Auto) 14.9 TH/MM3 15.8 TH/MM3 (1.8-7.7) (1.8-7.7) Monocytes # (Auto) 1.1 TH/MM3 1.5 TH/MM3 (0-0.9) (0-0.9) Neutrophils % (Manual) 80 % (16-70) Neutrophils # (Manual) 15.2 TH/MM3 (1.8-7.7) Myelocytes 2 % (0-0) Platelet Estimate LOW (NORMAL) LOW (NORMAL) Fibrinogen 104 mg/dL 159 mg/dL 216 mg/dL (227-377) (181-393) (227-377) Hemoglobin 11.0 GM/DL (11.6-15.3) Hematocrit 32.0 % (35.0-46.0) Lymphocytes (%) (Auto) 8.2 % (9.0-44.0) Monocytes (%) (Auto) 8.1 % (0.0-8.0) Platelet Morphology Comment ENLARGED (NORMAL) Imaging Last Impressions Lower Extremity Ultrasound 10/11/16 0000 Signed Impressions: Service Date/Time: Tuesday, October 11, 2016 21:47 - CONCLUSION: Diffuse left lower extremity venous thrombosis. Bon Pride MD Head CT 10/05/16 0000 Signed Impressions: Service Date/Time: Wednesday, October 05, 2016 19:09 - CONCLUSION: Expected postsurgical changes following right-sided drain placement. No findings to suggest significant acute hemorrhage, edema or mass effect. Haja Barker MD Abdomen X-Ray 09/27/16 1500 Signed Impressions: Service Date/Time: Tuesday, September 27, 2016 15:03 - CONCLUSION: 1. There is an IVC filter present overlying the right aspect of the L2 and L3 vertebral bodies. Otherwise, no radiopaque foreign body is seen. 2. Otherwise, no acute finding is visualized. Bon Carbajal MD IVC Filter Placement X-Ray 09/27/16 0000 Signed Impressions: Service Date/Time: Tuesday, September 27, 2016 13:13 - CONCLUSION: Uncomplicated inferior vena cava filter placement as above. This is a retrievable device and can be retrieved up to one year from its date of placement. Flynn Canales Jr., MD Chest X-Ray 09/26/16 0600 Signed Impressions: Service Date/Time: Monday, September 26, 2016 03:22 - CONCLUSION: No acute disease. Bon Garcia MD Chest CT 09/25/16 0000 Signed Impressions: Service Date/Time: Sunday, September 25, 2016 16:38 - CONCLUSION: 1. Positive for pulmonary embolic disease. 2. No evidence for metastatic disease to the thorax. Eleuterio Pyle MD Abdomen/Pelvis CT 09/25/16 0000 Signed Impressions: Service Date/Time: Sunday, September 25, 2016 16:38 - CONCLUSION: 1. Positive for pulmonary embolus right lower lobe. 2. No evidence for metastatic disease within the abdomen and pelvis. Eleuterio Pyle MD Neck Magnetic Resonance Angiography 09/24/16 0000 Signed Impressions: Service Date/Time: Saturday, September 24, 2016 14:31 - CONCLUSION: Normal examination for a patient of this age. Eleuterio Pyle MD Head Magnetic Resonance Angiography 09/23/16 0000 Signed Impressions: Service Date/Time: Friday, September 23, 2016 09:52 - CONCLUSION: Significant intracranial atherosclerotic disease, otherwise negative. Ciaran Davis MD FACR Brain MRI 09/23/16 0000 Signed Impressions: Service Date/Time: Friday, September 23, 2016 09:52 - CONCLUSION: Abnormality in the right parietal occipital region that does show some blood clots and vasogenic edema. This probably represents an ischemic event; however, the amount of vasogenic edema is concerning. MRI with contrast would be of benefit when the patient is clinically stable. Ciaran Davis MD FACR PE at Discharge GENERAL: Well-developed well-nourished. In no acute distress. Sitting up in a chair. SKIN: Warm and dry. Right temporal surgical site clean, and family mildly swollen, scabbing and scant seeping, no bleeding. HEENT: Normocephalic. Pupils equal and round. Mucous membranes pink and moist. CARDIOVASCULAR: Regular rate and rhythm. No murmur appreciated. RESPIRATORY: No accessory muscle use. Clear to auscultation. Breath sounds equal bilaterally. GASTROINTESTINAL: Abdomen soft, non-tender, nondistended. Bowel sounds x4. : External exam shows no vulvar erythema or irritation MUSCULOSKELETAL: No obvious deformities. No clubbing or cyanosis. LLE 2+ edema, Trace RLE edema. NEUROLOGICAL: Awake and alert. Moves upper and lower extremities spontaneously. Normal speech. PSYCHIATRIC: Appropriate mood and occasionally confused affect; insight and judgment fair. Hospital Course 71-year-old female with a past medical history of schizophrenia and A. fib who was initially admitted with hallucinations, elevated troponin, and intracranial hemorrhage Acute R temporal lobe hemorrhage with edema with Glioblastoma multiforme, WHO IV - MRI with contrast 09/24/16 shows Right occipitotemporal mass 5x 3 cm on MRI , s /p R temporal lobe biopsy 09/28/16, s/p craniotomy with resection right temporal lobe mass 10/05/16 - Neurosurgery following, continue oral Keppra for seizure prophylaxis, continue Decadron 2 mg q6h. Lortab and morphine for pain. - Seen by neurology, Dr. Chung - cleared for d/c to rehab per NS Schizophrenia, Anxiety, delirium - Haldol as needed for agitation - started on hydroxyzine prn Acute respiratory failure, RLL pulmonary embolism with DVT RLE- Intubated earlier this admission 09/24/16 for airway protection and obtaining an MRI. Self extubated 09/25/16. -Respiratory failure resolved, Now stable on room air -Continue incentive spirometry, albuterol. -CTA 09/25/16 RLL pulmonary embolism. Initially held anticoagulation per neurosurgery -Doppler U/S shows RLE DVT -S/p IVC filter 09/[address] Arias -Repeat Doppler U/S 10/11 showed diffuse LLE venous thrombosis -Cleared by neurosurgery to restart anticoagulation -Restarted anticoagulation with Lovenox per hematology, titrated up to 80 units twice daily today, may increase to full strength (100u bid) if no problems per Paroxysmal atrial fibrillation (currently in sinus rhythm) Hypertension Type II NSTEMI on admission ?Takotsubo cardiomyopathy (EF 30-35% with unknown baseline) -s/p aspirin 325 in the ED on admission but was not a candidate for subsequent ASA due to discovery of ICH. -Echo 09/23 showed EF 30-35% ?takotsubo syndrome vs CAD. -Medical management per Dr. Park from cardiology, continue Coreg. Diuresis as below. WHO IV glioblastoma Multiforme RLL Pulmonary embolism Bilateral lower extremity DVT, see above - Heme oncology is following. Now s/p resection of mass. Treatment with Temodar and radiation per oncology. - Has been evaluated by radiation oncology, Dr. Conner. - Lovenox per heme/onc, Dr. Soto - D/W RN, will inform neurosurgery about scalp incision seepage. Coagulopathy: Thrombocytopenia and decreased fibrinogen. Transfusion to keep fibrinogen and/or platelets both greater than 100. Hematology following. Monitor CBC and fibrinogen. Leukocytosis: WBC elevated since 10/06. Afebrile. Likely elevated secondary to steroids as above. Watch for fevers or signs of infection. Hyperglycemia: Low-dose insulin sliding scale while on steroids. Accu-Cheks every 6 hours. Lower extremity edema: Medication effect vs 2/2 cardiomyopathy vs DVT. Stopped IVF. Holding Norvasc. Started oral Lasix twice daily. KACEY hose. Monitor I's and O's, renal function, electrolytes. Improving. Constipation: Resolved with MoM. Continue Yocasta-Colace twice daily. DVT prophylaxis. IVC filter in place. Lovenox Protonix for GI prophylaxis Pt Condition on Discharge: Stable Discharge Disposition: Discharge to SNF Discharge Time: > 30 minutes Discharge Instructions DIET: Follow Instructions for: Heart Healthy Diet Speech Therapy-Diet Recommends: Regular Activities you can perform: Regular-No Restrictions Activities to Avoid: Driving Follow up Referrals: Neurosurgery - 1 Week with Dinh Ibrahim MD Oncology - 1 Week with Kenroy Soto MD PCP Follow-up - 2-3 Days New Medications: Carvedilol (Coreg) 6.25 Mg Tab 6.25 MG PO Q12HR Blood Pressure Management #60 TAB Dexamethasone (Dexamethasone) 4 Mg Tab 4 MG PO Q6HR Control Inflammation #120 TAB Enoxaparin Inj (Lovenox Inj) 80 mg/0.8 ML Syr 80 MG SQ Q12H Prevent Blood Clot #60 INJECTION Furosemide (Furosemide) 20 Mg Tab 20 MG PO BID@09,18 edema #60 TAB Hydrocodone-Acetaminophen (Hydrocodone-Acetaminophen) 10-325 mg Tab 1 TAB PO Q4H PRN PAIN SCALE 1 TO 10 #90 Ref 0 TAB Levetiracetam (Keppra) 500 Mg Tab 500 MG PO Q12HR Control Seizures #60 TAB Pantoprazole (Pantoprazole) 40 Mg Tab 40 MG PO DAILY Manage Heartburn #30 TAB Sennosides-Docusate Sodium (Senna Plus 8.6-50 mg) 1 Tab Tab 1 TAB PO BID Constipation #60 TAB Kaushik Arce MD Oct 14, 2016 15:42
[2016-10-14] MEDS ORDERED: ENOXAPARIN SODIUM 80 MG/0.8 ML SYRINGE SQ SCH (22:00)
--- NOTE | 2016-11-15 07:29 | RF ---
cc: ABEL YORK MD,KECIA DUQUE M.D. F o l l o w u p R e p o r t DATE OF SERVICE: 11/09/2016 DATE OF : 1945 AGE: 71 SEX: F DIAGNOSIS Glioblastoma multiforme (GBM), status post resection. HISTORY OF PRESENT ILLNESS This is a 71-year-old white female which I last saw on 09/30/2016 with the above-mentioned diagnosis. The patient had undergone surgical resection due to some medical issues and has not been able to return for simulation treatment planning. We tried to reach family members and were unable to do so. The patient actually returns today with her daughter for discussion of adjuvant radiation therapy treatment options. SUBJECTIVE The patient states she is feeling well. She feels a little tired. She says that she has some issues with the steroids. Feels weak. Memory is preserved. Her motor functions are preserved, although she has weakness of the upper and lower extremities, perhaps due to the steroids. The patient has hemoptysis, cough, shortness of breath. No bleeding per rectum or diarrhea. No bony pain. ASSESSMENT A 71-year-old white female with the diagnosis of GBM status post surgical resection. The patient is being evaluated for continuation of care. PLAN I had extensive discussion with the patient and her daughter who came in today with the patient. I discussed again the merits of the radiation therapy as well as the purpose side effects and complications in the 09/30/2016 note. The patient is doing a lot better since my last evaluation on 11/03/2016. After a thorough discussion, they agree to move forward with radiation planning. Consent form was signed. The patient will be contacting Dr. Soto for further evaluation regarding chemotherapy. I discussed with the patient the possibility of using the optune device after treatments and a followup MRI. They will think about this. They were advised, if I could be of any further assistance, to please let me know, otherwise we will proceed as above. Abel York MD Radiation Oncologist TRUDY LIU/[facility] /4:17 PM /7:13 AM ARYAN
== END 2016-10-14 18:15 | DRG 25 ==
LOC: NEPB 11:41 → NEDA 09-23 00:54 → HIMW 09-23 04:45 → N03B 09-28 11:07 → N05B 09-30 23:15 → N03B 10-05 18:05 → N03A 10-05 19:22 → N05A 10-08 18:22
PROVIDERS: ADMIT Internal Medicine; ATTEND Internal Medicine
PROC: 5A1935Z Respiratory Ventilation, Less than 24 Consecutive Hours (ICD-10-PCS; 2016-09-24)
PROC: 0BH17EZ Insertion of Endotracheal Airway into Trachea, Via Natural or Artificial Opening (ICD-10-PCS; 2016-09-24)
PROC: 06H03DZ Insertion of Intraluminal Device into Inferior Vena Cava, Percutaneous Approach (ICD-10-PCS; 2016-09-27)
PROC: 00B73ZX Excision of Cerebral Hemisphere, Percutaneous Approach, Diagnostic (ICD-10-PCS; 2016-09-28)
PROC: 00B70ZZ Excision of Cerebral Hemisphere, Open Approach (ICD-10-PCS; principal; 2016-10-05 14:15)
PROC: 30233N1 Transfusion of Nonautologous Red Blood Cells into Peripheral Vein, Percutaneous Approach (ICD-10-PCS; 2016-10-06)
PROC: 30233R1 Transfusion of Nonautologous Platelets into Peripheral Vein, Percutaneous Approach (ICD-10-PCS; 2016-10-06)
DX: C71.2 Malignant neoplasm of temporal lobe (principal); I61.1 Nontraumatic intracerebral hemorrhage in hemisphere, cortical; I21.4 Non-ST elevation (NSTEMI) myocardial infarction; D65 Disseminated intravascular coagulation [defibrination syndrome]; I26.99 Other pulmonary embolism without acute cor pulmonale; J96.00 Acute respiratory failure, unspecified whether with hypoxia or hypercapnia; G93.6 Cerebral edema; G93.40 Encephalopathy, unspecified; E87.1 Hypo-osmolality and hyponatremia; I82.403 Acute embolism and thrombosis of unspecified deep veins of lower extremity, bilateral; F20.9 Schizophrenia, unspecified; E87.6 Hypokalemia; R47.1 Dysarthria and anarthria; F41.0 Panic disorder [episodic paroxysmal anxiety]; R73.9 Hyperglycemia, unspecified; F41.8 Other specified anxiety disorders; I10 Essential (primary) hypertension; I67.2 Cerebral atherosclerosis; Z51.5 Encounter for palliative care; K59.00 Constipation, unspecified; I48.0 Paroxysmal atrial fibrillation; D72.829 Elevated white blood cell count, unspecified; T38.0X5A Adverse effect of glucocorticoids and synthetic analogues, initial encounter; R29.6 Repeated falls; Z87.891 Personal history of nicotine dependence
CPT/HCPCS: 31500; 36430; 36600; 37191; 70450; 70544; 70548; 70551; 70552; 71010; 71260; 74000; 74177; 76937; 80048; 80053; 80061; 80307; 81001; 82533; 82550; 82552; 82805; 82948; 83036; 83735; 83880; 83930; 83935; 84100; 84443; 84484; 85007; 85025; 85027; 85379; 85384; 85610; 85730; 86850; 86900; 86901; 86920; 86965; 87086; 87641; 88307; 88331; 93005; 93306; 93970; 93971; 94002; 94003; 94150; 94640; 94664; 95819; A9579; C1713; C1769; C1880; C9113; C9399; J0131; J0360; J0690; J0696; J1100; J1580; J1630; J1644; J1650; J1815; J1940; J1953; J2060; J2150; J2250; J2270; J2370; J2405; J2710; J3010; J3370; J3480; J7030; J7040; J7050; J7120; J8540; P9035; Q0177; Q9967

== ENCOUNTER 2016-10-24 10:10 | Inpatient (IN) | payer OTHER, MEDICARE ==
[2016-10-24] VITALS (8 sets, daily range): BP systolic 107–120; BP diastolic 52–90; PULSE 59–90; RESP 12–18; TEMP 97.4–98.6; O2SAT 95–100
[~2016-10-24] VITALS: Ht 165.1 cm; Wt 88.0 kg
[~2016-10-24 10:10] MED LIST changes: +CARV6.25 PO; +DEXA4TAB PO; +ENOX80P SQ; +FURO20TA PO; +HYDR-3583 PO; +LEVE500 PO; +PANT40TA3 PO; -PREG100 PO; +SENN1TAB PO; -TRAM50 PO
[2016-10-24] MEDS ORDERED: SODIUM CHLOR 0.9% 1000 ML INJ 1,000 ML IV SCH (10:21)
--- NOTE | 2016-10-24 10:29 | PD ---
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 Ibrahim last month, presents to the ER today because she is having rectal bleeding which started yesterday according to her. She noticed more blood in her underwear today. She reports feeling generally weak and having abdominal pains. She denies any chest pains, trouble breathing, nausea, vomiting, fevers, or other symptoms. Modifying Factors: None Associated Signs & Symptoms: Rectal bleeding, general weakness, abdominal pain Risk Factors: On Lovenox, last dose yesterday morning PFSH Past Medical History Anxiety: Yes Heart Rhythm Problems: Yes (a fib) Cancer: No Cardiovascular Problems: Yes Endocrine: No Genitourinary: No Immune Disorder: No Musculoskeletal: Yes Neurologic: No Psychiatric: Yes Reproductive: No Respiratory: No Schizophrenia: Yes Past Surgical History Gynecologic Surgery: Yes (hysterectomy) Other Surgery: Yes (FACE LIFT) Social History Alcohol Use: Yes Tobacco Use: No Substance Use: No Allergies-Medications (Allergen,Severity, Reaction): Coded Allergies: Codeine (Verified Allergy, Severe, nausea/vomiting/itching/sweating, ) Reported Meds & Prescriptions Reported Meds & Active Scripts Active Hydrocodone-Acetaminophen 10-325 mg Tab 1 Tab PO Q4HR Senna Plus 8.6-50 mg (Sennosides-Docusate Sodium) 1 Tab Tab 1 Tab PO BID Keppra (Levetiracetam) 500 Mg Tab 500 Mg PO Q12HR Furosemide 20 Mg Tab 20 Mg PO BID@ Lovenox Inj (Enoxaparin Sodium) 80 mg/0.8 ML Syr 80 Mg SQ Q12H Dexamethasone 4 Mg Tab 4 Mg PO Q6HR Coreg (Carvedilol) 6.25 Mg Tab 6.25 Mg PO Q12HR Reported Omeprazole 20 Mg Tab 20 Mg PO DAILY Review of Systems Except as stated in HPI: all other systems reviewed are Neg Physical Exam Narrative GENERAL: Well-developed elderly white female in moderate distress, awake, lethargic. Oriented 3. SKIN: Warm and dry. HEAD: Atraumatic. Normocephalic. EYES: Pupils equal and round. No scleral icterus. No injection or drainage. ENT: No nasal bleeding or discharge. Mucous membranes pink and moist. NECK: Trachea midline. No JVD. CARDIOVASCULAR: Regular rate and rhythm. No murmur appreciated. RESPIRATORY: No accessory muscle use. Clear to auscultation. Breath sounds equal bilaterally. GASTROINTESTINAL: Abdomen soft, diffuse abdominal tenderness more pronounced on the right than the left without guarding or rebound, nondistended. Hepatic and splenic margins not palpable. RECTAL EXAM: No masses or tenderness, stool is dark red, Hemoccult positive. MUSCULOSKELETAL: No obvious deformities. No clubbing. No cyanosis. No edema. NEUROLOGICAL: Awake and alert. No obvious cranial nerve deficits. Motor grossly within normal limits. Normal speech. PSYCHIATRIC: Appropriate mood and affect; insight and judgment normal. Data Data Last Documented VS Vital Signs Date Time Temp Pulse Resp B/P Pulse Ox O2 Delivery O2 Flow Rate FiO2 10/24/16 10:10 98.6 75 18 113/75 95 Orders Complete Blood Count With Diff (10/24/16 10:21) Comprehensive Metabolic Panel (10/24/16 10:21) Lipase (10/24/16 10:21) Prothrombin Time / Inr (Pt) (10/24/16 10:21) Act Partial Throm Time (Ptt) (10/24/16 10:21) Type And Screen (10/24/16 10:21) Ecg Monitoring (10/24/16 10:21) Iv Access Insert/Monitor (10/24/16 10:21) Oximetry (10/24/16 10:21) Sodium Chlor 0.9% 1000 Ml Inj (Ns 1000 M (10/24/16 10:21) Sodium Chloride 0.9% Flush (Ns Flush) (10/24/16 10:30) Pantoprazole Inj (Protonix Inj) (10/24/16 10:30) Pantoprazole Inj (Protonix Inj) (10/24/16 10:30) Ct Abd/Pel W Iv Contrast(Rout) (10/24/16 10:21) Urinary Catheter Insert/Apply (10/24/16 10:21) Urinalysis - C+S If Indicated (10/24/16 10:21) Urine Culture (10/24/16 10:57) Labs Laboratory Tests Test 10/24/16 10/24/16 10:46 10:57 White Blood Count 17.5 TH/MM3 Red Blood Count 4.23 MIL/MM3 Hemoglobin 12.5 GM/DL Hematocrit 36.8 % Mean Corpuscular Volume 87.2 FL Mean Corpuscular Hemoglobin 29.5 PG Mean Corpuscular Hemoglobin 33.8 % Concent Red Cell Distribution Width 14.4 % Platelet Count 330 TH/MM3 Mean Platelet Volume 8.8 FL Neutrophils (%) (Auto) 83.4 % Lymphocytes (%) (Auto) 7.6 % Monocytes (%) (Auto) 8.2 % Eosinophils (%) (Auto) 0.0 % Basophils (%) (Auto) 0.8 % Neutrophils # (Auto) 14.6 TH/MM3 Lymphocytes # (Auto) 1.3 TH/MM3 Monocytes # (Auto) 1.4 TH/MM3 Eosinophils # (Auto) 0.0 TH/MM3 Basophils # (Auto) 0.1 TH/MM3 CBC Comment AUTO DIFF Differential Total Cells 100 Counted Neutrophils % (Manual) 51 % Band Neutrophils % 25 % Lymphocytes % 6 % Monocytes % 15 % Neutrophils # (Manual) 13.8 TH/MM3 Metamyelocytes 1 % Myelocytes 2 % Differential Comment FINAL DIFF MANUAL Platelet Estimate NORMAL Platelet Morphology Comment NORMAL Red Cell Morphology Comment NORMAL Prothrombin Time 11.5 SEC Prothromb Time International 1.0 RATIO Ratio Activated Partial 25.3 SEC Thromboplast Time Sodium Level 138 MEQ/L Potassium Level 3.2 MEQ/L Chloride Level 99 MEQ/L Carbon Dioxide Level 25.7 MEQ/L Anion Gap 13 MEQ/L Blood Urea Nitrogen 28 MG/DL Creatinine 0.92 MG/DL Estimat Glomerular Filtration 60 ML/MIN Rate Random Glucose 191 MG/DL Calcium Level 8.6 MG/DL Total Bilirubin 0.9 MG/DL Aspartate Amino Transf 26 U/L (AST/SGOT) Alanine Aminotransferase 39 U/L (ALT/SGPT) Alkaline Phosphatase 95 U/L Total Protein 6.6 GM/DL Albumin 2.7 GM/DL Lipase 159 U/L Blood Type A POSITIVE Urine Color YELLOW Urine Turbidity HAZY Urine pH 7.5 Urine Specific Enochs 1.012 Urine Protein TRACE mg/dL Urine Glucose (UA) NEG mg/dL Urine Ketones NEG mg/dL Urine Occult Blood NEG Urine Nitrite NEG Urine Bilirubin NEG Urine Urobilinogen LESS THAN 2.0 MG/DL Urine Leukocyte Esterase LARGE Urine RBC 2 /hpf Urine WBC 143 /hpf Urine Bacteria FEW /hpf Urine Hyaline Casts 2 /lpf Urine Mucus FEW /lpf Microscopic Urinalysis Comment CATH-CULTURE IND MDM Medical Decision Making Medical Screen Exam Complete: Yes Emergency Medical Condition: Yes Medical Record Reviewed: Yes Interpretation(s) Laboratory Tests Test 10/24/16 10/24/16 10:46 10:57 White Blood Count 17.5 TH/MM3 (4.0-11.0) Neutrophils (%) (Auto) 83.4 % (16.0-70.0) Lymphocytes (%) (Auto) 7.6 % (9.0-44.0) Monocytes (%) (Auto) 8.2 % (0.0-8.0) Neutrophils # (Auto) 14.6 TH/MM3 (1.8-7.7) Monocytes # (Auto) 1.4 TH/MM3 (0-0.9) Band Neutrophils % 25 % (0-6) Lymphocytes % 6 % (9-44) Monocytes % 15 % (0-8) Neutrophils # (Manual) 13.8 TH/MM3 (1.8-7.7) Myelocytes 2 % (0-0) Potassium Level 3.2 MEQ/L (3.5-5.1) Blood Urea Nitrogen 28 MG/DL (7-18) Estimat Glomerular Filtration 60 ML/MIN (>89) Rate Random Glucose 191 MG/DL (74-106) Albumin 2.7 GM/DL (3.4-5.0) Urine Turbidity HAZY (CLEAR) Urine Leukocyte Esterase LARGE (NEG) Urine WBC 143 /hpf (0-5) Urine Bacteria FEW /hpf (NONE) Urine Mucus FEW /lpf (OCC) Differential Diagnosis Rectal bleedingGI bleeding versus coagulopathy versus hemorrhoidal bleeding, evaluating for an significant anemia Narrative Course Patient has maroon colored stools, Hemoccult positive. Vital signs shows mildly low blood pressure and IV fluids were initiated in the ER along with Protonix IV. Lab work did not reveal significant anemia at this point. It did reveal a UTI which I plan to treat. Cultures are done, IV antibiotic's initiated in the ER. Case is then discussed with Dr. Yuen for admission for further treatment. [facility] Point of Care Internal Pos. & Neg. Controls: Passed Fecal Specimen Occult Blood: Positive Diagnosis Primary Impression: GI bleed Additional Impression: UTI (urinary tract infection) Admitting Information Admitting Physician Requests: it Efrain Cameron MD Oct 24, 2016 10:29
[2016-10-24] MEDS ORDERED: PANTOPRAZOLE INJ 80 MG in SODIUM CHLORIDE 0.9% INJ 35 ML IV ONE (10:30)
[2016-10-24] MEDS ORDERED: SODIUM CHLORIDE 0.9% FLUSH 5 ML FLUSH IVF PRN (10:30)
[2016-10-24] MEDS ORDERED: PANTOPRAZOLE INJ 80 MG in SODIUM CHLORIDE 0.9% INJ 100 ML IV SCH (10:30)
[2016-10-24] MEDS ORDERED: OMEP20TA PO (10:32)
[2016-10-24 11:03] LABS: AUTOMATED NEUTROPHIL # 14.6 TH/MM3 (1.8-7.7); BASOPHIL # 0.1 TH/MM3 (0-0.2); BASOPHIL % 0.8 % (0.0-2.0); HEMATOCRIT 36.8 % (35.0-46.0); LYMPH % 7.6 % (9.0-44.0); LYMPHOCYTE # 1.3 TH/MM3 (1.0-4.8); MEAN CELL VOLUME 87.2 FL (80.0-100.0); MEAN CORPUSCULAR HEMOGLOBIN 29.5 PG (27.0-34.0); MEAN CORPUSCULAR HGB CONC 33.8 % (32.0-36.0); MONO % 8.2 % (0.0-8.0); NEUT % 83.4 % (16.0-70.0); PLATELET COUNT 330 TH/MM3 (150-450); RED BLOOD COUNT 4.23 MIL/MM3 (4.00-5.30); RED CELL DISTRIBUTION WIDTH 14.4 % (11.6-17.2); WHITE BLOOD COUNT 17.5 TH/MM3 (4.0-11.0)
[2016-10-24 11:06] LABS: HEMO FLAGS AUTO DIFF
[2016-10-24 11:13] LABS: APTT (PATIENT) 25.3 SEC (24.3-30.1); PROTHROMBIN TIME - PATIENT 11.5 SEC (9.8-11.6)
[2016-10-24 11:24] LABS: BACTERIA, URINE FEW /hpf; BLOOD, URINE NEG (NEG); GLUCOSE,URINE NEG (NEG); HYALINE CAST, URINE 2 /lpf (RARE); KETONE, URINE NEG (NEG); MUCUS URINE FEW /lpf (OCC); NITRITE,URINE NEG (NEG); PH, URINE 7.5 (5.0-8.5); URINE COLOR YELLOW (YELLW/STRAW)
[2016-10-24 11:24] LABS: ALKALINE PHOSPHATASE 95 U/L (45-117); ALT (GPT) 39 U/L (10-53); ANION GAP 13 MEQ/L (5-15); AST (GOT) 26 U/L (15-37); BICARBONATE 25.7 MEQ/L (21.0-32.0); BLOOD UREA NITROGEN 28 MG/DL (7-18); CHLORIDE 99 MEQ/L (98-107); GLOMERULAR FILTRATION RATE 60 ML/MIN (>89); SODIUM (NA) 138 MEQ/L (136-145); TOTAL BILIRUBIN ADULT 0.9 MG/DL (0.2-1.0)
[2016-10-24 11:25] LABS: POTASSIUM 3.2 MEQ/L (3.5-5.1)
[2016-10-24 11:26] LABS: COMMENT (UR) CATH-CULTURE IND; CULTURE IF INDICATED CATH CULTURE IND
[2016-10-24 11:41] LABS: BANDS 25 % (0-6); METAMYELOCYTES 1 % (0-1); MYELOCYTES 2 % (0-0); NEUTROPHIL # MANUAL DIFF 13.8 TH/MM3 (1.8-7.7); PLATELET ESTIMATE SMEAR NORMAL (NORMAL); PLATELET MORPHOLOGY NORMAL (NORMAL); POLYS (SEG NEUTROPHILS) 51 % (16-70); SCAN/DIFF FINAL DIFF MANUAL; WBC DIFF SAMPLE 100
[2016-10-24] MEDS ORDERED: PIPERACIL-TAZO 4.5 GM PREMIX 100 ML IV STA (11:57)
[2016-10-24] MEDS ORDERED: PROPOFOL 200 MG/20 ML AMP IV ONE (12:00)
[2016-10-24] MEDS ORDERED: NALOXONE HCL 0.4 MG/ML AMP IV PRN (12:00)
[2016-10-24] MEDS ORDERED: ONDANSETRON HCL 4 MG/2 ML VIAL IVP PRN (12:00)
[2016-10-24] MEDS ORDERED: SODIUM CHLORIDE 0.9% FLUSH 5 ML FLUSH FLUSH PRN (12:00)
[2016-10-24] MEDS ORDERED: MORPHINE SULFATE 4 MG/ML INJ IV PUSH PRN (12:30)
[2016-10-24] MEDS ORDERED: IOHEXOL 350 MG/ML 10 ML VIAL (for RAD DIAG) IV ONE (12:38)
--- NOTE | 2016-10-24 12:47 | HHI.HP ---
[facility] Unknown Admission Diagnosis GI bleed/UTI Diagnoses: Chief Complaint: GI bleed Travel History International Travel<30 Days: No Contact w/Intl Traveler <30 Da: No Traveled to Known Affected Are: No History of Present Illness 71-year-old female with history of atrial fibrillation, anxiety and schizophrenia who had a recent admission discharged about 10 days ago secondary to intracranial bleed, glioblastoma multiforme, and PE. Upon discharge patient was stable and was discharged to SNF. Her son is at the bedside and stated that she was doing well until today she had blood in her stools. Patient denies any abdominal pain, nausea vomiting. She does state that she has chronic left-sided lower back pain. She denied any chest pain, short his breathing, Lantus or dizziness. Patient is alert and oriented but is a poor storing and does not like given a history. Per her son patient was doing better in which she was ambulating some at the rehabilitation center. ER physician stated that she saw maroon-colored stools. Patient was discharged on Lovenox 10 days ago due to PE. Review of Systems Constitutional: DENIES: Diaphoretic episodes, Fatigue, Fever, Weight gain, Weight loss, Chills, Dizziness, Change in appetite, Night Sweats Endocrine: DENIES: Abnorml menstrual pattern, Heat/cold intolerance, Polydipsia , Polyuria, Polyphagia Eyes: DENIES: Blurred vision, Diplopia, Eye inflammation, Eye pain, Vision loss , Photosensitivity, Double Vision Ears, nose, mouth, throat: DENIES: Tinnitus, Hearing loss, Vertigo, Nasal discharge, Oral lesions, Throat pain, Hoarseness, Ear Pain, Running Nose, Epistaxis, Sinus Pain, Toothache, Odynophagia Respiratory: DENIES: Apneas, Cough, Snoring, Wheezing, Hemoptysis, Sputum production, Shortness of breath Cardiovascular: DENIES: Chest pain, Palpitations, Syncope, Dyspnea on Exertion , PND, Lower Extremity Edema, Orthopnea, Claudication Gastrointestinal: COMPLAINS OF: Bloody stools Genitourinary: DENIES: Abnormal vaginal bleeding, Dysmenorrhea, Dyspareunia, Sexual dysfunction, Urinary frequency, Urinary incontinence, Urgency, Hematuria , Dysuria, Nocturia, Vaginal discharge Musculoskeletal: DENIES: Joint pain, Muscle aches, Stiffness, Joint Swelling, Back pain, Neck pain Integumentary: DENIES: Abnormal pigmentation, Pruritus, Rash, Nail changes, Breast masses, Breast skin changes, Nipple discharge Hematologic/lymphatic: DENIES: Bruising, Lymphadenopathy Immunologic/allergic: DENIES: Eczema, Urticaria Neurologic: DENIES: Abnormal gait, Headache, Localized weakness, Paresthesias, Seizures, Speech Problems, Tremor, Poor Balance Psychiatric: DENIES: Anxiety, Confusion, Mood changes, Depression, Hallucinations, Agitation, Suicidal Ideation, Homicidal Ideation, Delusions Past Family Social History Past Medical History Recent PE/right lower extremity DVT Coagulopathy Glioblastoma multiforme Schizophrenia History of atrial fibrillation Anxiety Recent intracranial hemorrhage recent NSTEMI Past Surgical History R temporal lobe biopsy 09/28/16, s/p craniotomy with resection right temporal lobe mass 10/05/16 IVF filter Reported Medications Hydrocodone-Acetaminophen 10-325 mg Tab 1 Tab PO Q4HR Senna Plus 8.6-50 mg (Sennosides-Docusate Sodium) 1 Tab Tab 1 Tab PO BID Keppra (Levetiracetam) 500 Mg Tab 500 Mg PO Q12HR Furosemide 20 Mg Tab 20 Mg PO BID@,18 Lovenox Inj (Enoxaparin Sodium) 80 mg/0.8 ML Syr 80 Mg SQ Q12H Dexamethasone 4 Mg Tab 4 Mg PO Q6HR Coreg (Carvedilol) 6.25 Mg Tab 6.25 Mg PO Q12HR Omeprazole 20 Mg Tab 20 Mg PO DAILY Allergies: Coded Allergies: Codeine (Verified Allergy, Severe, nausea/vomiting/itching/sweating, ) Active Ordered Medications Current Medications Sodium Chloride (NS 1000 ml Inj) 1,000 ml @ 1,000 mls/hr Q1H IV Last administered on 10/24/16t 10:54; Start 10/24/16 at 10:21; Stop 10/24/16 at 11:20 ; Status DC IV Flush 2 ml 2 ml UNSCH PRN IVF FLUSH AFTER USING IV ACCESS; Start 10/24/16 at 10:30; Stop 10/24/16 at 12:25; Status DC Pantoprazole Sodium 80 mg/ Sodium Chloride 35 ml @ 420 mls/hr ONCE ONCE IV Last administered on 10/24/16 10:54; Start 10/24/16 at 10:30; Stop 10/24/16 at 10:34; Status DC Pantoprazole Sodium 80 mg/ Sodium Chloride 100 ml @ 10 mls/hr Q10H IV Last administered on 10/24/16 10:54; Start 10/24/16 at 10:30; Stop 10/24/16 at 12:32 ; Status DC Piperacillin Sod/ Tazobactam Sod 100 ml @ 200 mls/hr ONCE STAT IV Last administered on 10/24/16 12:50; Start 10/24/16 at 11:57; Stop 10/24/16 at 12:26 ; Status DC Sodium Chloride (NS 1000 ml Inj) 1,000 ml @ 100 mls/hr Q10H IV Last administered on 10/24/16 12:50; Start 10/24/16 at 13:00 IV Flush (NS Flush) 2 ml UNSCH PRN FLUSH FLUSH AFTER USING IV ACCESS; Start at 12:00 IV Flush (NS Flush) 2 ml BID FLUSH ; Start 10/24/16 at 21:00 Ondansetron HCl (Zofran Inj) 4 mg Q6H PRN IVP NAUSEA OR VOMITING; Start at 12:00 Naloxone HCl (Narcan Inj) 0.4 mg UNSCH PRN IV SEE LABEL COMMENTS; Start at 12:00 Pantoprazole Sodium (Protonix Inj) 40 mg Q12H IV PUSH ; Start 10/24/16 at 20:00 Morphine Sulfate 2 mg 2 mg Q6H PRN IV PUSH pain; Start 10/24/16 at 12:30 Ceftriaxone Sodium/Sodium Chloride (Rocephin Inj/NS Inj) 100 ml @ 200 mls/hr Q24H IV ; Start 10/24/16 at 14:00 Iohexol (Omnipaque 350 Inj) 71 ml STK-MED ONCE IV Last administered on 12:38; Start 10/24/16 at 12:38; Stop 10/24/16 at 12:39; Status DC Family History noncontributory Social History patient recently discharged from [facility] and was residing in his neck. Physical Exam Vital Signs Vital Signs Date Time Temp Pulse Resp B/P Pulse Ox O2 Delivery O2 Flow Rate FiO2 10/24/16 10:10 98.6 75 18 113/75 95 Physical Exam GENERAL: This is a well-nourished, well-developed patient, in no apparent distress. SKIN: No rashes, ecchymoses or lesions. Cool and dry. HEAD: Atraumatic. Normocephalic. No temporal or scalp tenderness. EYES: Pupils equal round and reactive. Extraocular motions intact. No scleral icterus. No injection or drainage. ENT: Nose without bleeding, purulent drainage or septal hematoma. Throat without erythema, tonsillar hypertrophy or exudate. Uvula midline. Airway patent. NECK: Trachea midline. No JVD or lymphadenopathy. Supple, nontender, no meningeal signs. CARDIOVASCULAR: Regular rate and rhythm without murmurs, gallops, or rubs. RESPIRATORY: Clear to auscultation. Breath sounds equal bilaterally. No wheezes , rales, or rhonchi. GASTROINTESTINAL: Abdomen soft, + epigastric pain to palpitation, nondistended. No hepato-splenomegaly, or palpable masses. No guarding. MUSCULOSKELETAL: Extremities without clubbing, cyanosis, or edema. No joint tenderness, effusion, or edema noted. No calf tenderness. Negative Homans sign bilaterally. + TTP of spinous process of lower back. trace lower ext edema. NEUROLOGICAL: Awake and alert. Cranial nerves II through XII intact. Motor and sensory grossly within normal limits. Five out of 5 muscle strength in all muscle groups. Normal speech. Laboratory Laboratory Tests Test 10/24/16 10/24/16 10:46 10:57 White Blood Count 17.5 Red Blood Count 4.23 Hemoglobin 12.5 Hematocrit 36.8 Mean Corpuscular Volume 87.2 Mean Corpuscular Hemoglobin 29.5 Mean Corpuscular Hemoglobin 33.8 Concent Red Cell Distribution Width 14.4 Platelet Count 330 Mean Platelet Volume 8.8 Neutrophils (%) (Auto) 83.4 Lymphocytes (%) (Auto) 7.6 Monocytes (%) (Auto) 8.2 Eosinophils (%) (Auto) 0.0 Basophils (%) (Auto) 0.8 Neutrophils # (Auto) 14.6 Lymphocytes # (Auto) 1.3 Monocytes # (Auto) 1.4 Eosinophils # (Auto) 0.0 Basophils # (Auto) 0.1 CBC Comment AUTO DIFF Differential Total Cells 100 Counted Neutrophils % (Manual) 51 Band Neutrophils % 25 Lymphocytes % 6 Monocytes % 15 Neutrophils # (Manual) 13.8 Metamyelocytes 1 Myelocytes 2 Differential Comment FINAL DIFF MANUAL Platelet Estimate NORMAL Platelet Morphology Comment NORMAL Red Cell Morphology Comment NORMAL Prothrombin Time 11.5 Prothromb Time International 1.0 Ratio Activated Partial 25.3 Thromboplast Time Sodium Level 138 Potassium Level 3.2 Chloride Level 99 Carbon Dioxide Level 25.7 Anion Gap 13 Blood Urea Nitrogen 28 Creatinine 0.92 Estimat Glomerular Filtration 60 Rate Random Glucose 191 Calcium Level 8.6 Total Bilirubin 0.9 Aspartate Amino Transf 26 (AST/SGOT) Alanine Aminotransferase 39 (ALT/SGPT) Alkaline Phosphatase 95 Total Protein 6.6 Albumin 2.7 Lipase 159 Blood Type A POSITIVE Antibody Screen NEGATIVE Urine Color YELLOW Urine Turbidity HAZY Urine pH 7.5 Urine Specific [place] 1.012 Urine Protein TRACE Urine Glucose (UA) NEG Urine Ketones NEG Urine Occult Blood NEG Urine Nitrite NEG Urine Bilirubin NEG Urine Urobilinogen LESS THAN 2.0 Urine Leukocyte Esterase LARGE Urine RBC 2 Urine WBC 143 Urine Bacteria FEW Urine Hyaline Casts 2 Urine Mucus FEW Microscopic Urinalysis Comment CATH-CULTURE IND Date/Time Procedure Status Source Growth 10/24/16 10:57 Urine Culture Received Urine Catheterized Urine Pending Result Diagram: 10/24/16 1046 10/24/16 1046 Imaging Last Impressions Abdomen/Pelvis CT 10/24/16 1021 Signed Impressions: Service Date/Time: Monday, October 24, 2016 12:27 - CONCLUSION: 1. CT findings characteristic of rectal fecal impaction with stercoral colitis. 2. A few punctate foci of air in the perineum and adjacent to the rectal vault may represent small ulcerations or early perforation. 3. 8 mm stable right hepatic lobe cyst. Sheldon Dos Santos MD Assessment and Plan Assessment and Plan 71-year-old female with recent hospitalization due to glioblastoma s/p R temporal lobe biopsy 09/28/16, s/p craniotomy with resection right temporal lobe mass 10/05/16, PE/DVT who p.w GI bleed GI bleed -Patient is on Lovenox for a DVT and PE. -Hold Lovenox. She was giving a loading dose of Protonix in the ED. Will continue with Protonix 40 mg IV twice a day. -Trend hemoglobin and consult GI. -We'll start IV fluids. Transfuse if needed and patient is in agreement. PE/DVT status post IVC filter -Now with GI bleed. -Difficult case. Will consult Dr. Soto fur storage clerk who saw patient during last admission. Glioblastoma multiform -R temporal lobe biopsy 09/28/16, s/p craniotomy with resection right temporal lobe mass 10/05/16. -Patient is supposed to get radiation as outpatient. UTI -found on UA. Patient admits to dysuria once Armstrong was placed. -She was given Zosyn in the ED. Will start Rocephin pending urine cultures. -If no procedures to be done will discontinue the Armstrong. History of an NSTEMI/atrial fibrillation -resume home mediation. DVT prophylaxis -Chemoprophylaxis contraindicated at the moment. -Will place SCDs. Discussed Condition With patient and her son. Physician Certification 2 Midnight Certification Type: Admission for Inpatient Services Order for Inpatient Services The services are ordered in accordance with Medicare regulations or non- Medicare payer requirements, as applicable. In the case of services not specified as inpatient-only, they are appropriately provided as inpatient services in accordance with the 2-midnight benchmark. Estimated LOS (days): 2 2 days is the estimated time the patient will need to remain in the hospital, assuming treatment plan goals are met and no additional complications. Post-Hospital Plan: [facility] Ashtyn Yuen MD Oct 24, 2016 12:47
[2016-10-24] MEDS: SODIUM CHLOR 0.9% 1000 ML INJ 1,000 ML IV SCH ×2 (12:50→22:51)
--- NOTE | 2016-10-24 13:17 | RADRPT ---
EXAM DATE/TIME: 10/24/2016 12:27 [facility] COMPARISON: CT ABDOMEN & PELVIS W CONTRAST, September 25, 2016, 16:38. INDICATIONS : Blood in stool. IV CONTRAST: 71 cc Omnipaque 350 (iohexol) IV ORAL CONTRAST: No oral contrast ingested. RADIATION DOSE: 13.67 CTDIvol (mGy) MEDICAL HISTORY : Cardiovascular disease. SURGICAL HISTORY : Hysterectomy. ENCOUNTER: Initial ACUITY: 1 day PAIN SCALE: 1/10 LOCATION: Abdomen TECHNIQUE: Volumetric scanning of the abdomen and pelvis was performed. Using automated exposure control and ad justment of the mA and/or kV according to patient size, radiation dose was kept as low as reasonably achievable to obtain optimal diagnostic quality images. FINDINGS: LOWER LUNGS: The visualized lower lungs are clear. LIVER: Focal, 8mm hypodensity posteriorly in the right hepatic lobe was present previously and is characteri stic of a benign cyst. There is no dilation of the biliary tree. No calcified gallstones. SPLEEN: Normal size without lesion. PANCREAS: Within normal limits. KIDNEYS: Normal in size and shape. There is no mass, stone or hydronephrosis. ADRENAL GLANDS: Within normal limits. VASCULAR: There is no aortic aneurysm. Patient has an IVC filter. BOWEL/MESENTERY: Extensive stool in the rectal vault and distal sigmoid characteristic of fecal impaction. There is al so pericolonic inflammatory changes characteristic of stercoral colitis. The in addition, punctate fo ci of air adjacent to the rectal vault may represent small ulcerations or early perforation. ABDOMINAL WALL: Within normal limits. RETROPERITONEUM: There is no lymphadenopathy. BLADDER: No wall thickening or mass. REPRODUCTIVE: Within normal limits. INGUINAL: There is no lymphadenopathy or hernia. MUSCULOSKELETAL: Dextroscoliosis of the lumbar spine with associated multilevel degenerative changes. CONCLUSION: 1. CT findings characteristic of rectal fecal impaction with stercoral colitis. 2. A few punctate foci of air in the perineum and adjacent to the rectal vault may represent small ul cerations or early perforation. 3. 8 mm stable right hepatic lobe cyst. Sheldon Dos Santos MD on October 24, 2016 at 13:08 Board Certified Radiologist. This report was verified electronically.
--- NOTE | 2016-10-24 13:23 | PD.CONS ---
HPI History of Present Illness This is a 71 year old brought to the ER for evaluation of rectal bleeding. The patient is a poor historian. She was recently hospitalized for headache/ paranoia/hallucinations and found to have a right occipitotemporal mass. She underwent stereotactic biopsy right temporal lobe mass which revealed WHO IV Glioblastoma Multiforme. She then underwent right temporal craniotomy with right temporal lobe mass resection. Her hospitalization was complicated by the development of a right lower lobe pulmonary emboli. Bilateral lower extremity ultrasounds were negative at that time and she underwent an IVC filter on . She was started on Lovenox at a reduced dose 80mg BID. According to the records, the plan was for outpatient XRT and Temodar chemotherapy. The patient told the nurse earlier, that she got up to go to the bathroom last night and passed a small amount of dark red blood and then had another episode this am. The nurses at the facility saw this and sent her to the ER for further evaluation. The patient cannot provide any information to me regarding this. She reports that she does not know anything about this and that she did not see it herself. The nurse reports that she had a small amount of rectal bleeding, consisting of dark red blood earlier today. She denies any nausea, vomiting, heartburn, abdominal pain, or bowel changes. She states her appetite is fine and that she has not lost any weight. She has never had an EGD/Colonoscopy. Her paternal grandmother is from gastric cancer. (Alyx Christensen) PFSH Past Medical History History of schizophrenia Anxiety Proximal atrial fibrillation History right lower lobe pulmonary embolism (seen on CTA 09/25/16) Hypertension Cardiomyopathy Glioblastoma multiforme Past Surgical History Stereotactic biopsy right temporal lobe Mass. Right temporal craniotomy with right temporal lobe mass resection Hysterectomy Facelift IVC filter placement (Alyx Christensen) Coded Allergies: Codeine (Verified Allergy, Severe, nausea/vomiting/itching/sweating, ) Medications Allergies Coded Allergies Type Severity Reaction Last Updated Verified Codeine Allergy Severe nausea/vomiting/itching/sweating 09/28/16 Yes Active Scripts Medications Dose Route/Sig Days Date Category Omeprazole 20 Mg Tab 20 Mg PO DAILY 10/24/16 Reported Hydrocodone-Acetaminophen 10-325 mg Tab 1 Tab PO Q4HR 10/14/16 Rx Senna Plus 8.6-50 mg (Sennosides-Docusate Sodium) 1 Tab Tab 1 Tab PO BID 10/14/16 Rx Keppra (Levetiracetam) 500 Mg Tab 500 Mg PO Q12HR 10/14/16 Rx Furosemide 20 Mg Tab 20 Mg PO BID@09,18 10/14/16 Rx Lovenox Inj (Enoxaparin Sodium) 80 mg/0.8 ML Syr 80 Mg SQ Q12H 10/14/16 Rx Dexamethasone 4 Mg Tab 4 Mg PO Q6HR 10/14/16 Rx Coreg (Carvedilol) 6.25 Mg Tab 6.25 Mg PO Q12HR 10/14/16 Rx Family History Father had heart disease, paternal grandmother had gastric cancer Social History No tobacco, or etoh use. (Alyx Christensen) Review of Systems Constitutional: COMPLAINS OF: Fatigue Respiratory: DENIES: Cough Cardiovascular: COMPLAINS OF: Lower Extremity Edema, DENIES: Chest pain Gastrointestinal: DENIES: Abdominal pain, Black stools, Constipation, Diarrhea , Nausea, Vomiting, Swelling of Abdomen, Heartburn, Hematemesis Hematologic/lymphatic: DENIES: Bruising Neurologic: DENIES: Headache Psychiatric: COMPLAINS OF: Confusion (alert oriented to self and place, poor historian.), Mood changes (Alyx Christensen) GI Exam Vitals I&O Vital Signs Date Time Temp Pulse Resp B/P Pulse Ox O2 Delivery O2 Flow Rate FiO2 10/24/16 10:10 98.6 75 18 113/75 95 Imaging Last Impressions Abdomen/Pelvis CT 10/24/16 1021 Signed Impressions: Service Date/Time: Monday, October 24, 2016 12:27 - CONCLUSION: 1. CT findings characteristic of rectal fecal impaction with stercoral colitis. 2. A few punctate foci of air in the perineum and adjacent to the rectal vault may represent small ulcerations or early perforation. 3. 8 mm stable right hepatic lobe cyst. Sheldon Dos Santos MD Laboratory Test 10/24/16 10/24/16 10:46 10:57 White Blood Count 17.5 TH/MM3 Red Blood Count 4.23 MIL/MM3 Hemoglobin 12.5 GM/DL Hematocrit 36.8 % Mean Corpuscular Volume 87.2 FL Mean Corpuscular Hemoglobin 29.5 PG Mean Corpuscular Hemoglobin 33.8 % Concent Red Cell Distribution Width 14.4 % Platelet Count 330 TH/MM3 Mean Platelet Volume 8.8 FL Neutrophils (%) (Auto) 83.4 % Lymphocytes (%) (Auto) 7.6 % Monocytes (%) (Auto) 8.2 % Eosinophils (%) (Auto) 0.0 % Basophils (%) (Auto) 0.8 % Neutrophils # (Auto) 14.6 TH/MM3 Lymphocytes # (Auto) 1.3 TH/MM3 Monocytes # (Auto) 1.4 TH/MM3 Eosinophils # (Auto) 0.0 TH/MM3 Basophils # (Auto) 0.1 TH/MM3 CBC Comment AUTO DIFF Differential Total Cells 100 Counted Neutrophils % (Manual) 51 % Band Neutrophils % 25 % Lymphocytes % 6 % Monocytes % 15 % Neutrophils # (Manual) 13.8 TH/MM3 Metamyelocytes 1 % Myelocytes 2 % Differential Comment FINAL DIFF MANUAL Platelet Estimate NORMAL Platelet Morphology Comment NORMAL Red Cell Morphology Comment NORMAL Prothrombin Time 11.5 SEC Prothromb Time International 1.0 RATIO Ratio Activated Partial 25.3 SEC Thromboplast Time Sodium Level 138 MEQ/L Potassium Level 3.2 MEQ/L Chloride Level 99 MEQ/L Carbon Dioxide Level 25.7 MEQ/L Anion Gap 13 MEQ/L Blood Urea Nitrogen 28 MG/DL Creatinine 0.92 MG/DL Estimat Glomerular Filtration 60 ML/MIN Rate Random Glucose 191 MG/DL Calcium Level 8.6 MG/DL Total Bilirubin 0.9 MG/DL Aspartate Amino Transf 26 U/L (AST/SGOT) Alanine Aminotransferase 39 U/L (ALT/SGPT) Alkaline Phosphatase 95 U/L Total Protein 6.6 GM/DL Albumin 2.7 GM/DL Lipase 159 U/L Blood Type A POSITIVE Antibody Screen NEGATIVE Urine Color YELLOW Urine Turbidity HAZY Urine pH 7.5 Urine Specific [place] 1.012 Urine Protein TRACE mg/dL Urine Glucose (UA) NEG mg/dL Urine Ketones NEG mg/dL Urine Occult Blood NEG Urine Nitrite NEG Urine Bilirubin NEG Urine Urobilinogen LESS THAN 2.0 MG/DL Urine Leukocyte Esterase LARGE Urine RBC 2 /hpf Urine WBC 143 /hpf Urine Bacteria FEW /hpf Urine Hyaline Casts 2 /lpf Urine Mucus FEW /lpf Microscopic Urinalysis Comment CATH-CULTURE IND Date/Time Procedure Status Source Growth 10/24/16 12:56 Aerobic Blood Culture Received Blood Peripheral Pending 10/24/16 12:56 Anaerobic Blood Culture Received Blood Peripheral Pending 10/24/16 10:57 Urine Culture Received Urine Catheterized Urine Pending Physical Examination HEENT: Normocephalic; atraumatic; no jaundice. Throat is clear. NECK: Neck is supple, no JVD, no lymphadenopathy. CHEST: CTA CARDIAC: Rrr ABDOMEN: Soft, nondistended, nontender; no hepatosplenomegaly; bowel sounds are present in all four quadrants. EXTREMITIES: No clubbing, cyanosis, or edema. SKIN: Normal; no rash; no jaundice. MANA[employer]: No focal deficits; alert and oriented times three. but poor historian. ( Alyx Christensen) Assessment and Plan Plan ASSESSMENT: - Rectal bleeding. Having small amount of dark red rectal bleeding- 3 episodes. Pt has PE and has been on lovenox at rehab center. Denies hx of colonoscopy. - Abnormal imaging on CT with fecal impaction with stercoral colitis and questionable early perforation. Abdomen/Pelvis CT (10/24/16)------> 1. CT findings characteristic of rectal fecal impaction with stercoral colitis. 2. A few punctate foci of air in the perineum and adjacent to the rectal vault may represent small ulcerations or early perforation. 3. 8 mm stable right hepatic lobe cyst. Will see if CRS available. ? Gastrografin enema. - Leukocytosis. WBC 17.5. - Recent PE. S/P IVC Filter. Lovenox 80mg sq BID at rehab center. - Recent hospitalization and found to have right occipitotemporal mass. She underwent stereotactic biopsy right temporal lobe mass which revealed WHO IV Glioblastoma Multiforme. She then underwent right temporal craniotomy with right temporal lobe mass resection. - Anxiety, HTN, CMP, per primary PLAN: - NPO - PPI - Ceftriaxone - Monitor HH - Transfuse as necessary - Consult CRS- Dr. Toney for abnormal CT with possible early perforation - ? Gastrografin enema, will await CRS recommendations - Supportive care - Further recommendations to follow based on results of above - Pt seen and examined by Dr. Harrison and myself and this note is written on his behalf. (Alyx Christensen) Physician Comments seen, examined agree with above (Bratu,Maria De JesusAlyx Hernandes Oct 24, 2016 13:23 Maria De Jesus Harrison MD Oct 24, 2016 20:19
[2016-10-24] MEDS: cefTRIAXone INJ 1,000 MG in SODIUM CHLORIDE 0.9% INJ 100 ML IV SCH (15:01)
[2016-10-24] MEDS ORDERED: ceFAZolin 2 GM PREMIX 50 ML ONE (18:34)
[2016-10-24] MEDS ORDERED: PIPERACIL-TAZO 3.375 GM PREMIX 50 ML IV ONE (20:00)
[2016-10-24] MEDS: SODIUM CHLORIDE 0.9% FLUSH 5 ML FLUSH FLUSH SCH (21:00)
--- NOTE | 2016-10-24 21:01 | RADRPT ---
EXAM DATE/TIME: 10/24/2016 20:11 [facility] COMPARISON: ABDOMEN KUB ONLY, September 27, 2016, 15:03. INDICATIONS : Rule out perforation. Post procedure. MEDICAL HISTORY : Cardiovascular disease. SURGICAL HISTORY : Hysterectomy. ENCOUNTER: Subsequent ACUITY: 1 day PAIN SCORE: Non-responsive. LOCATION: Bilateral abdomen. FINDINGS: Supine view of the abdomen was performed. The abdominal bowel gas pattern is normal. There is an IVC filter in place.. There are bony degenerative changes lumbar spine. No new or significant changes co mpared to the prior study. CONCLUSION: Normal bowel gas pattern. Stable exam compared to the prior study. Simon David MD on October 24, 2016 at 20:59 Board Certified Radiologist. This report was verified electronically.
[2016-10-24] MEDS: PANTOPRAZOLE SODIUM 40 MG VIAL IV PUSH SCH (21:43)
[2016-10-25] VITALS (9 sets, daily range): BP systolic 104–160; BP diastolic 56–81; PULSE 50–65; RESP 14–20; TEMP 96.3–98.6; O2SAT 95–100
[2016-10-25] MEDS: SODIUM CHLOR 0.9% 1000 ML INJ 1,000 ML IV SCH ×2 (03:30→17:06)
[2016-10-25 06:40] LABS: HEMATOCRIT 30.2 % (35.0-46.0); MEAN CELL VOLUME 86.9 FL (80.0-100.0); MEAN CORPUSCULAR HEMOGLOBIN 30.4 PG (27.0-34.0); PLATELET COUNT 231 TH/MM3 (150-450); RED BLOOD COUNT 3.47 MIL/MM3 (4.00-5.30); RED CELL DISTRIBUTION WIDTH 14.3 % (11.6-17.2); REVIEW FLAG FINAL; WHITE BLOOD COUNT 12.4 TH/MM3 (4.0-11.0)
--- NOTE | 2016-10-25 07:28 | MB ---
cc: RICHARD JUAREZ M.D. DATE OF CONSULTATION October 24, 2016 DATE OF SURGERY October 2402/20 CHIEF COMPLAINT Impaction with possible perforation. HISTORY OF PRESENT ILLNESS The patient is a 71-year-old female who was in her previous state of health until September of this year. At that point she was noted to have some changes in her thinking, as well as some headaches, and was found to have a mass in her right occipital temporal area. She underwent a biopsy which revealed a glioblastoma multiforme and then underwent craniotomy with right temporal lobe mass resection. Postoperatively she developed a pulmonary embolism and an IVC filter was placed. She then developed clots in her legs and Lovenox was increased. She went to the [facility] and was brought in today after passing a small amount of dark red blood. The patient denies nausea, vomiting, abdominal pain. According to the daughter, however, she has been complaining of feeling that she has an orange up in her rectum that she needs to pass and cannot and this is quite uncomfortable for her. In addition, she has had diarrhea around the presumed impaction. She denies any abdominal pain but has had some tenderness on palpation of her abdomen and complaints of gas pain. She has not had a previous EGD or colonoscopy. Family history is negative for colorectal cancer or polyps. PAST MEDICAL HISTORY 1. Schizophrenia. 2. Hypertension 3. Cardiomyopathy. 4. Glioblastoma multiforme. 5. Pulmonary embolism. 6. Atrial fibrillation. PAST SURGICAL HISTORY 1. Stereotactic biopsy. 2. Temporal craniotomy. 3. Hysterectomy with bilateral salpingo-oophorectomy. 4. Face lift 5. IVC filter. ALLERGIES CODEINE. MEDICATIONS See nurse's notes for details. SOCIAL HISTORY The patient had a distant history of tobacco. There is no alcohol currently. REVIEW OF SYSTEMS Significant for fatigue, rectal bleeding, diarrhea, rectal pain. Negative for abdominal pain, nausea, vomiting, headache, chest pain, shortness of breath. PHYSICAL EXAMINATION GENERAL: Physical exam reveals an alert female who appears comfortable. NEUROLOGIC: Grossly intact. SKIN: Warm and dry. CHEST: Breathing is symmetric bilaterally, nonlabored. CARDIOVASCULAR: Regular rate. ABDOMEN: Soft, nondistended. She is mildly tender to palpation diffusely. There is no guarding or rebound. EXTREMITIES: 2+ edema in the lower extremities with minimal edema in the upper extremities. SKIN: Warm and dry. LABORATORY WORK Hemoglobin of 12.1, initially at 10.6 and a repeat of 12.1 at 4 o'clock. White count of 17.5. Chemistry shows a sodium of 138, potassium 3.2, chloride of 99, bicarb was 25.7, BUN of 28, creatinine of 0.92 and glucose of 191. Urinalysis is sent for culture. CT scan reveals stool in the rectal vault and distal sigmoid consistent with fecal impaction. Also noted quite a bit of a pericolonic inflammatory changes with possible punctate foci adjacent to the rectal vault and a stable right hepatic lobe sac cyst. IMPRESSION 1. Fecal impaction. 2. Possible perforation from stercoral ulcer. PLAN To the operating room emergently for disimpaction. After this is complete, we will proceed with an x-ray tonight. If this is negative and her pain resolves, we will treat her with IV antibiotics. If, however, she continues to have tenderness in the morning, we will go forward with a Gastrografin enema. MD KENZIE Rasmussen/GARLAND /7:51 PM /7:10 AM ARYAN
[2016-10-25 07:34] LABS: BICARBONATE 29.4 MEQ/L (21.0-32.0)
[2016-10-25 07:42] LABS: POTASSIUM 2.4 MEQ/L (3.5-5.1)
[2016-10-25] MEDS ORDERED: POTASSIUM CHLORIDE 20 MEQ CONTROLLED RELEASE TAB PO STA (08:03)
[2016-10-25] MEDS: PANTOPRAZOLE SODIUM 40 MG VIAL IV PUSH SCH ×2 (08:58→21:00)
[2016-10-25] MEDS: DEXAMETHASONE SOD PHOS 4 MG/ML VIAL IV PUSH SCH (08:58)
[2016-10-25] MEDS: SODIUM CHLORIDE 0.9% FLUSH 5 ML FLUSH FLUSH SCH ×2 (08:59→21:00)
--- NOTE | 2016-10-25 09:34 | MB ---
cc: ESTEFANI BONNER M.D. DATE OF CONSULTATION: 10/25/2016 CHIEF COMPLAINT 1. Glioblastoma multiforme. 2. Bilateral DVT. 3. Rectal bleeding. PATIENT PROFILE The patient is a 71-year-old white female. She has been twice and . She has three biologic children. She was born in [place]. 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 She stopped smoking approximately 20 years ago and smoked three packs of cigarettes per day. She does not drink alcohol. HISTORY OF PRESENT ILLNESS The patient's history dates back to September 2016 when she developed increasing confusion and was found to have a mass in the right temporal area. On 09/28/2016 she had resection of a glioblastoma multiforme, grade 4, performed by Dr. Ibrahim. She had an excellent subtotal resection. Her situation was complicated where she was found to have a pulmonary emboli on a CT of the thorax on 09/25/2016 and had an IVC umbrella placed prior to surgery. She received low-dose Lovenox following surgery but unfortunately developed new venous thrombosis. On 10/11/2016 she was found to have extensive swelling of the left leg and an ultrasound demonstrated occlusive thrombus within the femoral, popliteal, peroneal, posterior tibial and greater saphenous veins of the left lower extremity. She had an ultrasound prior to this on 10/06/2016 which showed a small focal nonocclusive thrombus involving the common femoral vein on the right. At the time that she developed the large thrombus in the left leg she was taking Lovenox 40 mg a day. I saw her subsequent to this event and increased the lovenex to either a full dose or near full dose. She was then transferred to a rehab center. She was doing well and in speaking to Crystal Romo, this morning, who I believe is her health care surrogate, I learned. She was making enormous improvement at the skilled nursing. She developed constipation and when she would bear down she had rectal bleeding. It is noteworthy that she was taking hydrocodone/acetaminophen which can cause constipation. The patient was brought to the emergency room due to the rectal bleeding. She had a CAT scan of the abdomen and pelvis with IV contrast on 10/24/2016 showing extensive stool in the rectal vault. There was also pericolonic inflammatory changes characteristic of stercoral colitis. In addition there were punctate foci of air adjacent to the rectal vault which may represent small ulcerations or early perforation. She was seen by Dr. Pauline Toney, a colorectal surgeon. The patient was brought to the OR and had a disimpaction. I am now asked to see her in consultation. PAST SURGICAL HISTORY 1. October 05, 2016 stereotactic image-guided right temporal craniotomy with resection of glioblastoma multiforme. 2. Previous history of hysterectomy. PAST MEDICAL HISTORY 1. Bilateral DVT, left worse than right. history of pulmonary emboli 2. History of inferior vena cava umbrella placement 09/27/2016. Note, this is a retrievable umbrella. 3. History of current GI bleed associated with constipation and bearing down. MEDICATIONS Medications prior to admission: 1. Coreg. 2. Dexamethasone. 3. Lovenox 80 mg q.12h. 4. Lasix 20 mg b.i.d. 5. Hydrocodone/acetaminophen. 6. Keppra 500 p.o. q.12h. 7. Omeprazole. 8. Senna. ALLERGIES CODEINE. FAMILY HISTORY Noncontributory. REVIEW OF SYSTEMS I have spoken with Judith Hartman concerning how the patient was doing at the skilled nursing. She has been doing better. She has been walking. There has been a significant improvement in the past few days. No visual or hearing problems. No chest pain, palpitations or shortness of breath. She has had slight abdominal pain. She has had severe constipation. No problems with urination. Generalized weakness but this is improved. She had bleeding per rectum when she would bear down. Cognition has been good. PHYSICAL EXAMINATION GENERAL: Physical exam reveals a female lying in bed. She is not any acute distress, although appears frail. VITAL SIGNS: Blood pressure 160/70, respiratory rate 18, pulse 60, afebrile. O2 sat 97%. HEENT: Head is normocephalic. Sclera and conjunctiva are normal. Oropharynx is unremarkable. LYMPH NODES: There is no cervical, supraclavicular, axillary or inguinal adenopathy. HEART: Regular rhythm. LUNGS: Clear. ABDOMEN: Without minimal tenderness. No hepatosplenomegaly. EXTREMITIES: Mild swelling left leg. No swelling of the right leg. The patient has equal strength in both upper and lower extremities. NEUROLOGIC: Cognition is normal. LABORATORY DATA Hemoglobin 10.6, white count 12,000, platelets 231,000. Her most recent fibrinogen is 216 on 10/14/2016. ASSESSMENT AND PLAN 1. Glioblastoma multiforme. Will ask radiation oncology to see the patient as I am hopeful that treatment will start in the next 1-2 weeks. I have spoken with Dr. Wick- radiation oncologist this am. 2. Bilateral DVT with history of PE and with an umbrella in the inferior vena cava. Will hold anticoagulation for another day but will probably resume. I believe that the bleeding was due to the fact that she had severe constipation and was bearing down and had bleeding. I have spoken with Dr. Toney concerning this and for the present time it appears that this is the reason for the bleeding and once the constipation is resolved it should be less of a problem. She is at high risk of further thrombosis involving lower extremities. 3. Constipation. She should avoid narcotics and when she returns to the rehab center she should be on medicines such as lactulose. 4. She has been steroid dependent. She is not receiving Decadron. Will order Decadron. 5. I have also ordered a CBC and platelet count for tomorrow as well as a fibrinogen. When the fibrinogen is low I believe it indicates ongoing thrombosis and glioblastomas are associated with high risk of thrombosis. MD JENELLE Sun/CRUZ /7:35 AM /9:08 AM MTDD
[2016-10-25] MEDS ORDERED: POTASSIUM CHLOR 20 MEQ PREMIX 100 ML IV ONE (10:00)
[2016-10-25] MEDS: cefTRIAXone INJ 1,000 MG in SODIUM CHLORIDE 0.9% INJ 100 ML IV SCH (14:34)
--- NOTE | 2016-10-25 14:48 | HHI.PR ---
Subjective Remarks f/u for GI bleed. patient has no complaints. He friend is at the bedside. no BM since she was in OR. patient denied any pain or N/V. Objective Vitals Vital Signs Date Time Temp Pulse Resp B/P Pulse Ox O2 Delivery O2 Flow Rate FiO2 10/25/16 11:11 96.3 58 14 110/60 100 10/25/16 09:15 50 10/25/16 09:15 Nasal Cannula 2.00 10/25/16 09:14 97.6 54 20 113/58 95 10/25/16 08:52 98 Nasal Cannula 2.00 10/25/16 08:50 97.9 57 16 119/81 98 10/25/16 05:29 Nasal Cannula 2.00 10/25/16 05:29 98.3 60 18 160/74 97 10/25/16 00:57 Nasal Cannula 2.00 10/25/16 00:57 98.6 16 106/60 99 10/24/16 21:13 97.6 66 18 112/61 100 10/24/16 21:13 Nasal Cannula 2.00 10/24/16 20:15 74 16 127/74 100 Nasal Cannula 3 10/24/16 20:00 61 10/24/16 20:00 61 14 97/59 100 Nasal Cannula 3 10/24/16 19:45 64 14 107/60 99 Nasal Cannula 3 10/24/16 19:30 69 16 117/68 100 Nasal Cannula 3 10/24/16 19:24 98.9 69 15 113/8 100 Nasal Cannula 3 10/24/16 16:00 97.4 59 12 107/57 100 10/24/16 15:23 59 I/O 10/24/16 10/24/16 10/24/16 10/25/16 10/25/16 10/25/16 07:00 15:00 23:00 07:00 15:00 23:00 Intake Total 1174 ml 767 ml Output Total 510 ml Balance 664 ml 767 ml Intake IV Total 874 ml 767 ml Other 300 ml Estimated Blood Loss 10 ml Other 500 ml Result Diagram: 10/25/1621 10/25/16 0621 Imaging Last Impressions Abdomen/Pelvis CT 10/24/16 1021 Signed Impressions: Service Date/Time: Monday, October 24, 2016 12:27 - CONCLUSION: 1. CT findings characteristic of rectal fecal impaction with stercoral colitis. 2. A few punctate foci of air in the perineum and adjacent to the rectal vault may represent small ulcerations or early perforation. 3. 8 mm stable right hepatic lobe cyst. Sheldon Dos Santos MD Abdomen X-Ray 10/24/16 0000 Signed Impressions: Service Date/Time: Monday, October 24, 2016 20:11 - CONCLUSION: Normal bowel gas pattern. Stable exam compared to the prior study. Simon David MD Objective Remarks GENERAL: in NAD CARDIOVASCULAR: Regular rate and rhythm without murmurs, gallops, or rubs. RESPIRATORY: Breath sounds equal bilaterally. No accessory muscle use. GASTROINTESTINAL: Abdomen soft, non-tender, nondistended. MUSCULOSKELETAL: No cyanosis, or edema. BACK: Nontender without obvious deformity. No CVA tenderness. Medications and IVs Current Medications Sodium Chloride (NS 1000 ml Inj) 1,000 ml @ 1,000 mls/hr Q1H IV Last administered on 10/24/16 10:54; Start 10/24/16 at 10:21; Stop 10/24/16 at 11:20 ; Status DC IV Flush 2 ml 2 ml UNSCH PRN IVF FLUSH AFTER USING IV ACCESS; Start 10/24/16 at 10:30; Stop 10/24/16 at 12:25; Status DC Pantoprazole Sodium 80 mg/ Sodium Chloride 35 ml @ 420 mls/hr ONCE ONCE IV Last administered on 10/24/16 10:54; Start 10/24/16 at 10:30; Stop 10/24/16 at 10:34; Status DC Pantoprazole Sodium 80 mg/ Sodium Chloride 100 ml @ 10 mls/hr Q10H IV Last administered on 10/24/16 10:54; Start 10/24/16 at 10:30; Stop 10/24/16 at 12:32 ; Status DC Piperacillin Sod/ Tazobactam Sod 100 ml @ 200 mls/hr ONCE STAT IV Last administered on 10/24/16 12:50; Start 10/24/16 at 11:57; Stop 10/24/16 at 12:26 ; Status DC Sodium Chloride (NS 1000 ml Inj) 1,000 ml @ 100 mls/hr Q10H IV Last administered on 10/25/16 03:30; Start 10/24/16 at 13:00 IV Flush (NS Flush) 2 ml UNSCH PRN FLUSH FLUSH AFTER USING IV ACCESS; Start at 12:00 IV Flush (NS Flush) 2 ml BID FLUSH Last administered on 10/25/16 08:59; Start 10/24/16 at 21:00 Ondansetron HCl (Zofran Inj) 4 mg Q6H PRN IVP NAUSEA OR VOMITING; Start at 12:00 Naloxone HCl (Narcan Inj) 0.4 mg UNSCH PRN IV SEE LABEL COMMENTS; Start at 12:00 Pantoprazole Sodium (Protonix Inj) 40 mg Q12H IV PUSH Last administered on 10/25 08:58; Start 10/24/16 at 20:00 Morphine Sulfate 2 mg 2 mg Q6H PRN IV PUSH pain; Start 10/24/16 at 12:30 Ceftriaxone Sodium/Sodium Chloride (Rocephin Inj/NS Inj) 100 ml @ 200 mls/hr Q24H IV Last administered on 10/25/16 14:34; Start 10/24/16 at 14:00 Iohexol 71 ml 71 ml STK-MED ONCE IV Last administered on 10/24/16 12:38; Start 10/24/16 at 12:38; Stop 10/24/16 at 12:39; Status DC Cefazolin Sodium/ Dextrose 50 ml @ As Directed STK-MED ONCE .ROUTE Last administered on 10/24/16 18:48; Start 10/24/16 at 18:34; Stop 10/24/16 at 18:35 ; Status DC Piperacillin Sod/ Tazobactam Sod (Zosyn 3.375 Gm Premix) 50 ml @ 100 mls/hr NOW ONCE IV Last administered on 10/24/16 20:00; Start 10/24/16 at 20:00; Stop 10/24/16 at 20:29; Status DC Dexamethasone Sodium Phosphate (Decadron Inj) 4 mg DAILY IV PUSH Last administered on 10/25/16 08:58; Start 10/25/16 at 09:00 Potassium Chloride 60 meq 60 meq ONCE STAT PO Last administered on 10/25/16 08:59; Start 10/25/16 at 08:03; Stop 10/25/16 at 08:04; Status DC Potassium Chloride (KCl 20 Meq Premix Inj) 100 ml @ 50 mls/hr BOLUS ONCE IV Last administered on 10/25/16t 11:14; Start 10/25/16 at 10:00; Stop 10/25/16 at 11:59; Status DC Propofol (Diprivan 200 Mg/20 ml Inj) 200 mg STK-MED ONCE IV ; Start 10/24/16 at 12:00; Stop 10/25/16 at 13:52; Status DC A/P Assessment and Plan 71-year-old female with recent hospitalization due to glioblastoma s/p R temporal lobe biopsy 09/28/16, s/p craniotomy with resection right temporal lobe mass 10/05/16, PE/DVT who p.w GI bleed GI bleed -Patient is on Lovenox for a DVT and PE. -GI and CRS consulted. most likely due to constipation. -Director Transition consulted and stated if stable can restart lovenox. -continue to monitor and trend H/H. -patient on protonix. Hypokalemia -replenish with K. -continue to monitor. PE/DVT status post IVC filter -see treatment as above. Glioblastoma multiform -R temporal lobe biopsy 09/28/16, s/p craniotomy with resection right temporal lobe mass 10/05/16. -Patient is supposed to get radiation as outpatient. Hem/Onc ff. UTI -found on UA. Patient admits to dysuria once Armstrong was placed. -She was given Zosyn in the ED. continue Rocephin pending urine cultures. -If no procedures to be done will discontinue the Armstrong. History of an NSTEMI/atrial fibrillation -continue home mediation. DVT prophylaxis -will restart lovenox once okay with Dr. Soto. -on SCDs. Discharge Planning patient most likely need 1-2 days further hospitalization due to multiple comorbidities. She developed severe hypokalemia today that requires IV K. Ashtyn Yuen MD Oct 25, 2016 14:48
--- NOTE | 2016-10-25 16:14 | HHI.PR ---
Subjective Remarks s/p disimpaction Comfortable, denies abdominal pain Objective Vital Signs Date Time Temp Pulse Resp B/P Pulse Ox O2 Delivery O2 Flow Rate FiO2 10/25/16 11:11 96.3 58 14 110/60 100 10/25/16 09:15 50 10/25/16 09:15 Nasal Cannula 2.00 10/25/16 09:14 97.6 54 20 113/58 95 10/25/16 08:52 98 Nasal Cannula 2.00 10/25/16 08:50 97.9 57 16 119/81 98 10/25/16 05:29 Nasal Cannula 2.00 10/25/16 05:29 98.3 60 18 160/74 97 10/25/16 00:57 Nasal Cannula 2.00 10/25/16 00:57 98.6 16 106/60 99 10/24/16 21:13 97.6 66 18 112/61 100 10/24/16 21:13 Nasal Cannula 2.00 10/24/16 20:15 74 16 127/74 100 Nasal Cannula 3 10/24/16 20:00 61 10/24/16 20:00 61 14 97/59 100 Nasal Cannula 3 10/24/16 19:45 64 14 107/60 99 Nasal Cannula 3 10/24/16 19:30 69 16 117/68 100 Nasal Cannula 3 10/24/16 19:24 98.9 69 15 113/8 100 Nasal Cannula 3 I/O 10/24/16 10/24/16 10/24/16 10/25/16 10/25/16 10/25/16 07:00 15:00 23:00 07:00 15:00 23:00 Intake Total 1174 ml 767 ml Output Total 510 ml Balance 664 ml 767 ml Intake IV Total 874 ml 767 ml Other 300 ml Estimated Blood Loss 10 ml Other 500 ml Result Diagram: 10/25/16 1544 10/25/16 0621 Objective Remarks Abdomen soft, nondistended, nontender Assessment and Plan Assessment and Plan laxatives cautiously try sips ok to restart Lovenox - d/w Pauline Quinones MD Oct 25, 2016 16:14
[2016-10-25] MEDS ORDERED: POLYETHYLENE GLYCOL 17 GM PKG PO ONE (16:30)
[2016-10-25] MEDS: ENOXAPARIN SODIUM 80 MG/0.8 ML SYRINGE SQ SCH (21:20)
[2016-10-26] VITALS: BP 117/58; PULSE 54; RESP 18; TEMP 98; O2SAT 99
[2016-10-26 04:00] VITALS: BP 122/66; PULSE 60; RESP 18; TEMP 97.8; O2SAT 99
[2016-10-26] MEDS: SODIUM CHLOR 0.9% 1000 ML INJ 1,000 ML IV SCH ×2 (05:00→15:00)
--- NOTE | 2016-10-26 07:04 | MP ---
cc: RICHARD TONEY M.D., JOSE E. M.D. WEISS, RICHARD DATE OF SURGERY 10/24/2016 PREOPERATIVE DIAGNOSIS Impaction, lower GI bleed. POSTOPERATIVE DIAGNOSIS Impaction, lower GI bleed. PROCEDURE Disimpaction under sedative SURGEON Richard Toney MD ANESTHESIA IV sedation with monitored anesthesia care INDICATIONS The patient is a 71-year-old female with evidence of an impaction, with the possibility of a microperforation. OPERATIVE FINDINGS Impaction OPERATIVE COURSE The patient was brought to the operating room, and placed in the supine position. After IV sedation, the patient was turned to the left lateral position. The anorectal area was lubricated profusely, and gently the stool was disimpacted from the rectum. After removing as much stool as possible from the rectum, the rectal mucosa was palpated and did have some roughness consistent with inflammatory changes, but there was no palpable sharad perforation. A clean pair of gloves was then placed and an examination was performed of the vagina with no palpable abnormality there. The patient was then cleaned and returned to the post anesthesia care unit in stable condition. MD KENZIE Rasmussen/SUSIE /7:43 PM /6:49 AM [email or web address]
[2016-10-26 08:00] VITALS: BP 136/67; PULSE 60; RESP 16; TEMP 97.9; O2SAT 100
--- NOTE | 2016-10-26 08:05 | HHI.PR ---
Subjective Remarks s/p disimpaction Comfortable, denies abdominal pain hungry Objective Vital Signs Date Time Temp Pulse Resp B/P Pulse Ox O2 Delivery O2 Flow Rate FiO2 10/26/16 04:00 97.8 60 18 122/66 99 10/26/16 00:00 98.0 54 18 117/58 99 10/25/16 20:00 99 Nasal Cannula 2.00 10/25/16 20:00 98.6 65 18 131/69 99 10/25/16 16:30 97.6 57 18 104/56 100 10/25/16 11:11 96.3 58 14 110/60 100 10/25/16 09:15 50 10/25/16 09:15 Nasal Cannula 2.00 10/25/16 09:14 97.6 54 20 113/58 95 10/25/16 08:52 98 Nasal Cannula 2.00 10/25/16 08:50 97.9 57 16 119/81 98 I/O 10/25/16 10/25/16 10/25/16 10/26/16 10/26/16 10/26/16 07:00 15:00 23:00 07:00 15:00 23:00 Intake Total 767 ml 2200 ml 762 ml Output Total 250 ml Balance 767 ml 1950 ml 762 ml Intake Oral 520 ml IV Total 767 ml 1680 ml 762 ml Output Urine Total 250 ml # Voids 1 # Bowel Movements 1 1 Result Diagram: 10/25/16 1544 10/25/16 1507 Objective Remarks Abdomen soft, nondistended, nontender Assessment and Plan Assessment and Plan advance diet mobilize if ok with Pauline Valera MD Oct 26, 2016 08:05
[2016-10-26 08:16] LABS: AUTOMATED NEUTROPHIL # 6.5 TH/MM3 (1.8-7.7); EOSINOPHIL # 0.1 TH/MM3 (0-0.4); EOSINOPHIL % 1.7 % (0.0-4.0); HEMATOCRIT 26.9 % (35.0-46.0); LYMPH % 13.2 % (9.0-44.0); LYMPHOCYTE # 1.1 TH/MM3 (1.0-4.8); MEAN CELL VOLUME 87.4 FL (80.0-100.0); MEAN CORPUSCULAR HGB CONC 34.3 % (32.0-36.0); MONO % 10.5 % (0.0-8.0); NEUT % 74.6 % (16.0-70.0); PLATELET COUNT 180 TH/MM3 (150-450); RED BLOOD COUNT 3.08 MIL/MM3 (4.00-5.30); RED CELL DISTRIBUTION WIDTH 14.7 % (11.6-17.2); WHITE BLOOD COUNT 8.7 TH/MM3 (4.0-11.0)
[2016-10-26 08:23] LABS: HEMO FLAGS AUTO DIFF
[2016-10-26] MEDS: SODIUM CHLORIDE 0.9% FLUSH 5 ML FLUSH FLUSH SCH ×2 (08:48→08:54)
[2016-10-26] MEDS: PANTOPRAZOLE SODIUM 40 MG VIAL IV PUSH SCH (08:52)
[2016-10-26] MEDS: DEXAMETHASONE SOD PHOS 4 MG/ML VIAL IV PUSH SCH (08:52)
[2016-10-26 08:53] LABS: BICARBONATE 25.3 MEQ/L (21.0-32.0); POTASSIUM 3.2 MEQ/L (3.5-5.1)
[2016-10-26] MEDS: ENOXAPARIN SODIUM 80 MG/0.8 ML SYRINGE SQ SCH (08:54)
[2016-10-26] MEDS ORDERED: POLYETHYLENE GLYCOL 17 GM PKG PO SCH (09:00)
[2016-10-26 09:37] LABS: BANDS 27 % (0-6); METAMYELOCYTES 3 % (0-1); MYELOCYTES 3 % (0-0); NEUTROPHIL # MANUAL DIFF 7.3 TH/MM3 (1.8-7.7); POLYS (SEG NEUTROPHILS) 51 % (16-70); WBC DIFF SAMPLE 100
[2016-10-26 09:38] LABS: PLATELET ESTIMATE SMEAR NORMAL (NORMAL); PLATELET MORPHOLOGY NORMAL (NORMAL); SCAN/DIFF FINAL DIFF MANUAL
[2016-10-26 09:55] VITALS: O2SAT 95
[2016-10-26] MEDS ORDERED: POTASSIUM CHLORIDE 10 MEQ CONTROLLED RELEASE TAB PO ONE (10:00)
--- NOTE | 2016-10-26 10:02 | PD.ONC.PN ---
Subjective Subjective Remarks Afebrile overnight. Denies bleeding. Patient resting comfortably. No family or friends at bedside. Objective Data Date Time Temp Pulse Resp B/P Pulse Ox O2 Delivery O2 Flow Rate FiO2 10/26/16 04:00 97.8 60 18 122/66 99 10/26/16 00:00 98.0 54 18 117/58 99 10/25/16 20:00 99 Nasal Cannula 2.00 10/25/16 20:00 98.6 65 18 131/69 99 10/25/16 16:30 97.6 57 18 104/56 100 10/25/16 11:11 96.3 58 14 110/60 100 10/26/16 10/26/16 10/26/16 07:00 15:00 23:00 Intake Total 762 ml Balance 762 ml Result Diagram: 10/26/16 0644 10/26/1644 Laboratory Results Laboratory Tests Test 10/25/16 10/25/16 10/26/16 15:07 15:44 06:44 Potassium Level 3.6 MEQ/L 3.2 MEQ/L Hemoglobin 9.8 GM/DL 9.2 GM/DL White Blood Count 8.7 TH/MM3 Red Blood Count 3.08 MIL/MM3 Hematocrit 26.9 % Mean Corpuscular Volume 87.4 FL Mean Corpuscular Hemoglobin 30.0 PG Mean Corpuscular Hemoglobin 34.3 % Concent Red Cell Distribution Width 14.7 % Platelet Count 180 TH/MM3 Mean Platelet Volume 8.6 FL Neutrophils (%) (Auto) 74.6 % Lymphocytes (%) (Auto) 13.2 % Monocytes (%) (Auto) 10.5 % Eosinophils (%) (Auto) 1.7 % Basophils (%) (Auto) 0.0 % Neutrophils # (Auto) 6.5 TH/MM3 Lymphocytes # (Auto) 1.1 TH/MM3 Monocytes # (Auto) 0.9 TH/MM3 Eosinophils # (Auto) 0.1 TH/MM3 Basophils # (Auto) 0.0 TH/MM3 CBC Comment AUTO DIFF Differential Total Cells 100 Counted Neutrophils % (Manual) 51 % Band Neutrophils % 27 % Lymphocytes % 8 % Monocytes % 8 % Neutrophils # (Manual) 7.3 TH/MM3 Metamyelocytes 3 % Myelocytes 3 % Differential Comment FINAL DIFF MANUAL Platelet Estimate NORMAL Platelet Morphology Comment NORMAL Fibrinogen 311 mg/dL Sodium Level 146 MEQ/L Chloride Level 113 MEQ/L Carbon Dioxide Level 25.3 MEQ/L Anion Gap 8 MEQ/L Blood Urea Nitrogen 17 MG/DL Creatinine 0.33 MG/DL Estimat Glomerular Filtration 196 ML/MIN Rate Random Glucose 97 MG/DL Calcium Level 7.9 MG/DL Culture Results Microbiology Date/Time Procedure Status Source Growth 10/24/16 10:57 Urine Culture - Final Complete Urine Catheterized Urine Pseudomonas Aeruginosa 10/24/16 12:50 Aerobic Blood Culture - Preliminary Resulted Blood Peripheral NO GROWTH IN 1 DAY 10/24/16 12:50 Anaerobic Blood Culture - Preliminary Resulted Blood Peripheral NO GROWTH IN 1 DAY 10/24/16 12:56 Aerobic Blood Culture - Preliminary Resulted Blood Peripheral NO GROWTH IN 1 DAY 10/24/16 12:56 Anaerobic Blood Culture - Preliminary Resulted Blood Peripheral NO GROWTH IN 1 DAY Administered Medications Medications (Trade) Dose Ordered Sig/Hardeep Route PRN Reason Start Time Stop Time Status Last Admin Dose Admin Sodium Chloride (NS 1000 ml Inj) 1,000 ml @ 100 mls/hr Q10H IV 10/24/16 13:00 10/26/16 05:00 IV Flush (NS Flush) 2 ml BID FLUSH 10/24/16 21:00 10/26/16 08:54 Pantoprazole Sodium 40 mg 40 mg Q12H IV PUSH 10/24/16 20:00 10/26/16 08:52 Ceftriaxone Sodium/Sodium Chloride (Rocephin Inj/NS Inj) 100 ml @ 200 mls/hr Q24H IV 10/24/16 14:00 10/25/16 14:34 Dexamethasone Sodium Phosphate (Decadron Inj) 4 mg DAILY IV PUSH 10/25/16 09:00 10/26/16 08:52 Enoxaparin Sodium (Lovenox Inj) 80 mg Q12H SQ 10/25/16 21:00 10/26/16 08:54 Objective Remarks GENERAL: Pleasant elderly female, sitting up in bed in [facility]. SKIN: Warm and dry. HEAD: Normocephalic. EYES: No injection or drainage. NECK: Supple, trachea midline. CARDIOVASCULAR: Regular rate and rhythm RESPIRATORY: Breath sounds equal bilaterally. No accessory muscle use. GASTROINTESTINAL: Abdomen soft, non-tender, nondistended. EXTREMITIES: No cyanosis. bilateral lower extremity edema. NEUROLOGICAL: awake and alert, normal speech. Assessment/Plan Assessment 71y/o with GBM, s/p resection. Admitted for GIB, fecal impaction. Now s/p disimpaction. Plan 1. Lovenox was resumed last night at full dose. Would order serial H/H and monitor. If begins bleeding again will need to hold Lovenox. 2. okay to mobilize patient--will consult physical therapy and order OOB with assist. Attending Statement The exam, history, and the medical decision-making described in the above note were completed with the assistance of the mid-level provider. I reviewed and agree with the findings presented. I attest that I had a [id number] encounter with the patient on the same day, and personally performed and documented my assessment and findings in the medical record. patient depressed and not very conversant. heparin resumed and no bleeding and abd is soft. she needs to resume physical therapy, continue heparin, avoid narcotics, use laxatives and follow up with radiation. I have spoken with Dr. Wick this afternoon and he saw the patient earlier and she was not very receptive to starting treatment presently. Jenniffer Ramirez Oct 26, 2016 10:02 Kenroy Soto MD Oct 26, 2016 19:42
[2016-10-26] MEDS ORDERED: HYDR-3583 PO (10:19)
--- NOTE | 2016-10-26 10:59 | HHI.GIFU ---
Subjective Remarks Resting in bed. Denies any nausea, vomiting, abdominal pain. Reports that she is moving her bowels. (Alyx Christensen) Objective Vitals I&O Vital Signs Date Time Temp Pulse Resp B/P Pulse Ox O2 Delivery O2 Flow Rate FiO2 10/26/16 04:00 97.8 60 18 122/66 99 10/26/16 00:00 98.0 54 18 117/58 99 10/25/16 20:00 99 Nasal Cannula 2.00 10/25/16 20:00 98.6 65 18 131/69 99 10/25/16 16:30 97.6 57 18 104/56 100 10/25/16 11:11 96.3 58 14 110/60 100 I/O 10/25/16 10/25/16 10/25/16 10/26/16 10/26/16 10/26/16 07:00 15:00 23:00 07:00 15:00 23:00 Intake Total 767 ml 2200 ml 762 ml Output Total 250 ml Balance 767 ml 1950 ml 762 ml Intake Oral 520 ml IV Total 767 ml 1680 ml 762 ml Output Urine Total 250 ml # Voids 1 # Bowel Movements 1 1 Laboratory Laboratory Tests Test 10/25/16 10/25/16 10/26/16 15:07 15:44 06:44 Potassium Level 3.6 3.2 Hemoglobin 9.8 9.2 White Blood Count 8.7 Red Blood Count 3.08 Hematocrit 26.9 Mean Corpuscular Volume 87.4 Mean Corpuscular Hemoglobin 30.0 Mean Corpuscular Hemoglobin 34.3 Concent Red Cell Distribution Width 14.7 Platelet Count 180 Mean Platelet Volume 8.6 Neutrophils (%) (Auto) 74.6 Lymphocytes (%) (Auto) 13.2 Monocytes (%) (Auto) 10.5 Eosinophils (%) (Auto) 1.7 Basophils (%) (Auto) 0.0 Neutrophils # (Auto) 6.5 Lymphocytes # (Auto) 1.1 Monocytes # (Auto) 0.9 Eosinophils # (Auto) 0.1 Basophils # (Auto) 0.0 CBC Comment AUTO DIFF Differential Total Cells 100 Counted Neutrophils % (Manual) 51 Band Neutrophils % 27 Lymphocytes % 8 Monocytes % 8 Neutrophils # (Manual) 7.3 Metamyelocytes 3 Myelocytes 3 Differential Comment FINAL DIFF MANUAL Platelet Estimate NORMAL Platelet Morphology Comment NORMAL Fibrinogen 311 Sodium Level 146 Chloride Level 113 Carbon Dioxide Level 25.3 Anion Gap 8 Blood Urea Nitrogen 17 Creatinine 0.33 Estimat Glomerular Filtration 196 Rate Random Glucose 97 Calcium Level 7.9 Date/Time Procedure Status Source Growth 10/24/16 12:56 Aerobic Blood Culture - Preliminary Resulted Blood Peripheral NO GROWTH IN 1 DAY 10/24/16 12:56 Anaerobic Blood Culture - Preliminary Resulted Blood Peripheral NO GROWTH IN 1 DAY 10/24/16 10:57 Urine Culture - Final Complete Urine Catheterized Urine Pseudomonas Aeruginosa Imaging Last Impressions Abdomen/Pelvis CT 10/24/16 1021 Signed Impressions: Service Date/Time: Monday, October 24, 2016 12:27 - CONCLUSION: 1. CT findings characteristic of rectal fecal impaction with stercoral colitis. 2. A few punctate foci of air in the perineum and adjacent to the rectal vault may represent small ulcerations or early perforation. 3. 8 mm stable right hepatic lobe cyst. Sheldon Dos Santos MD Abdomen X-Ray 10/24/16 0000 Signed Impressions: Service Date/Time: Monday, October 24, 2016 20:11 - CONCLUSION: Normal bowel gas pattern. Stable exam compared to the prior study. Simon David MD Physical Exam HEENT: Normocephalic; atraumatic; no jaundice. CHEST: CTA CARDIAC: RRR ABDOMEN: Soft, nondistended, mild diffuse tenderness; no hepatosplenomegaly; bowel sounds are present in all four quadrants. EXTREMITIES: No clubbing, cyanosis, or edema. SKIN: Normal; no rash; no jaundice. HVAC SERVICE TECHNICIAN: Alert and oriented times three. (Alyx Christensen) Assessment and Plan Plan ASSESSMENT: - Rectal bleeding. Having small amount of dark red rectal bleeding- 3 episodes. Pt has PE and has been on lovenox at rehab center. Denies hx of colonoscopy. CT revealed fecal impaction with stercoral colitis and questionable early perforation. Status post disimpaction under sedative with Colorectal. She was placed on a bowel regimen. She has not had any further bleeding. H&H is stable 9.2/26.9 - Abnormal imaging on CT with fecal impaction with stercoral colitis and questionable early perforation. Abdomen/Pelvis CT (10/24/16)------> 1. CT findings characteristic of rectal fecal impaction with stercoral colitis. 2. A few punctate foci of air in the perineum and adjacent to the rectal vault may represent small ulcerations or early perforation. 3. 8 mm stable right hepatic lobe cyst. Status post disimpaction by colorectal. - Fecal impaction. S/P disimpaction under sedation. + BM. Bowel regimen. - Leukocytosis. WBC 8.7 - Recent PE. S/P IVC Filter. Lovenox - Recent hospitalization and found to have right occipitotemporal mass. She underwent stereotactic biopsy right temporal lobe mass which revealed WHO IV Glioblastoma Multiforme. She then underwent right temporal craniotomy with right temporal lobe mass resection. - Anxiety, HTN, CMP, per primary PLAN: - Diet as tolerated per colorectal surgery - PPI - MiraLAX 17 g by mouth daily - Status post colorectal surgery eval - GI will sign off, please reconsult as needed - Pt seen and examined by Dr. Harrison and myself and this note is written on his behalf. (Alyx Christensen) Physician Comments agree with above (Maria De Jesus Harrison MD) Alyx Christensen Oct 26, 2016 10:59 Maria De Jesus Harrison MD Oct 26, 2016 17:45
[2016-10-26 12:00] VITALS: BP 141/70; PULSE 61; RESP 18; TEMP 97.9; O2SAT 99
[2016-10-26] MEDS: cefTRIAXone INJ 1,000 MG in SODIUM CHLORIDE 0.9% INJ 100 ML IV SCH (15:01)
[2016-10-26] MEDS ORDERED: OMEP40CA2 PO (15:23)
[2016-10-26] MEDS ORDERED: LEVA750T PO (15:23)
[2016-10-26] MEDS ORDERED: POTA-163 PO (15:23)
--- NOTE | 2016-10-26 15:24 | HHI.DS ---
Discharge Summary Admission Date Oct 24, 2016 at 11:59 Discharge Date: Oct 26, 2016 Admitting Diagnosis GI bleed/UTI (1) GI bleed ICD Code: K92.2 Diagnosis: Principal (2) Constipation ICD Code: K59.00 Diagnosis: Principal (3) Pseudomonas urinary tract infection ICD Code: N39.0 Diagnosis: Principal (4) Glioblastoma multiforme ICD Code: C71.9 Diagnosis: Secondary (5) Pulmonary embolism ICD Code: I26.99 Diagnosis: Secondary Procedures see hospital course. Brief History - From Admission 71-year-old female with history of atrial fibrillation, anxiety and schizophrenia who had a recent admission discharged about 10 days ago secondary to intracranial bleed, glioblastoma multiforme, and PE. Upon discharge patient was stable and was discharged to SNF. Her son is at the bedside and stated that she was doing well until today she had blood in her stools. Patient denies any abdominal pain, nausea vomiting. She does state that she has chronic left-sided lower back pain. She denied any chest pain, short his breathing, Lantus or dizziness. Patient is alert and oriented but is a poor storing and does not like given a history. Per her son patient was doing better in which she was ambulating some at the rehabilitation center. ER physician stated that she saw maroon-colored stools. Patient was discharged on Lovenox 10 days ago due to PE. CBC/BMP: 10/26/16 0644 10/26/16 0644 Significant Findings Laboratory Tests Test 10/24/16 10/24/16 10/25/16 10/25/16 10:46 10:57 06:21 15:44 Potassium Level 3.2 MEQ/L 2.4 MEQ/L (3.5-5.1) (3.5-5.1) Blood Urea Nitrogen 28 MG/DL (7-18) 25 MG/DL (7-18) Estimat Glomerular Filtration 60 ML/MIN (>89) 85 ML/MIN (>89) Rate Random Glucose 191 MG/DL 136 MG/DL (74-106) (74-106) Albumin 2.7 GM/DL (3.4-5.0) White Blood Count 17.5 TH/MM3 12.4 TH/MM3 (4.0-11.0) (4.0-11.0) Neutrophils (%) (Auto) 83.4 % (16.0-70.0) Lymphocytes (%) (Auto) 7.6 % (9.0-44.0) Monocytes (%) (Auto) 8.2 % (0.0-8.0) Neutrophils # (Auto) 14.6 TH/MM3 (1.8-7.7) Monocytes # (Auto) 1.4 TH/MM3 (0-0.9) Band Neutrophils % 25 % (0-6) Lymphocytes % 6 % (9-44) Monocytes % 15 % (0-8) Neutrophils # (Manual) 13.8 TH/MM3 (1.8-7.7) Myelocytes 2 % (0-0) Urine Turbidity HAZY (CLEAR) Urine Leukocyte Esterase LARGE (NEG) Urine WBC 143 /hpf (0-5) Urine Bacteria FEW /hpf (NONE) Urine Mucus FEW /lpf (OCC) Red Blood Count 3.47 MIL/MM3 (4.00-5.30) Hemoglobin 10.6 GM/DL 9.8 GM/DL (11.6-15.3) (11.6-15.3) Hematocrit 30.2 % (35.0-46.0) Calcium Level 8.0 MG/DL (8.5-10.1) Test 10/26/16 06:44 Red Blood Count 3.08 MIL/MM3 (4.00-5.30) Hemoglobin 9.2 GM/DL (11.6-15.3) Hematocrit 26.9 % (35.0-46.0) Neutrophils (%) (Auto) 74.6 % (16.0-70.0) Monocytes (%) (Auto) 10.5 % (0.0-8.0) Band Neutrophils % 27 % (0-6) Lymphocytes % 8 % (9-44) Metamyelocytes 3 % (0-1) Myelocytes 3 % (0-0) Sodium Level 146 MEQ/L (136-145) Potassium Level 3.2 MEQ/L (3.5-5.1) Chloride Level 113 MEQ/L (98-107) Creatinine 0.33 MG/DL (0.50-1.00) Calcium Level 7.9 MG/DL (8.5-10.1) Imaging Last Impressions Abdomen/Pelvis CT 10/24/16 1021 Signed Impressions: Service Date/Time: Monday, October 24, 2016 12:27 - CONCLUSION: 1. CT findings characteristic of rectal fecal impaction with stercoral colitis. 2. A few punctate foci of air in the perineum and adjacent to the rectal vault may represent small ulcerations or early perforation. 3. 8 mm stable right hepatic lobe cyst. Sheldon Dos Santos MD Abdomen X-Ray 10/24/16 0000 Signed Impressions: Service Date/Time: Monday, October 24, 2016 20:11 - CONCLUSION: Normal bowel gas pattern. Stable exam compared to the prior study. Simon David MD PE at Discharge GENERAL: in NAD CARDIOVASCULAR: Regular rate and rhythm without murmurs, gallops, or rubs. RESPIRATORY: Breath sounds equal bilaterally. No accessory muscle use. GASTROINTESTINAL: Abdomen soft, non-tender, nondistended. MUSCULOSKELETAL: No cyanosis, or edema. BACK: Nontender without obvious deformity. No CVA tenderness. Pt update on day of discharge f/u for GI bleed patient has no complaints. Denied any abdominal pain, N/V. no bloody stools. Hospital Course 71-year-old female with recent hospitalization due to glioblastoma s/p R temporal lobe biopsy 09/28/16, s/p craniotomy with resection right temporal lobe mass 10/05/16, PE/DVT who p.w GI bleed GI bleed -Patient is on Lovenox for a DVT and PE that was initally held due to GI bleed. -CT scan done which showed rectal fecal impaction with stercoral colitis, a few punctate foci of air in the perineum and adjacent to the rectal vault may represent small ulcerations or early perforation -GI and CRS consulted. Patient went to OR with CRS for disimpaction. an xray was done after which showed no free air. Since that was negative Hem and CRS agreed to restarting Lovenox. -patient was put on protonix. H/H initially dropped but then stabilized and there was no active bleeding while hospitalized. Hypokalemia -replenish with K. -continue to monitor. -she was discharge on scheduled K. PE/DVT status post IVC filter -see treatment as above. Glioblastoma multiform -R temporal lobe biopsy 09/28/16, s/p craniotomy with resection right temporal lobe mass 10/05/16. -Patient is supposed to get radiation as outpatient. Hem/Onc ff. UTI -found on UA. Patient admits to dysuria once Armstrong was placed. -She was given Zosyn in the ED. then put on Rocephin pending urine cultures. -urine cultures grew pseudomonas which was sensitive to Levaquin so she was switched to Levaquin upon discharge. History of an NSTEMI/atrial fibrillation -continue home mediation. Pt Condition on Discharge: Good Discharge Disposition: Discharge to SNF Discharge Time: <= 30 minutes Discharge Instructions DIET: Follow Instructions for: Heart Healthy Diet Activities you can perform: Regular-No Restrictions Follow up Referrals: SNF/ASSISTED/ - 10/28/16 with [facility] New Medications: Levofloxacin (Levaquin) 750 Mg Tab 750 MG PO DAILY Infection #6 Ref 0 TAB Omeprazole (Omeprazole) 40 Mg Cap 40 MG PO DAILY GERD #30 Ref 0 CAP Potassium Chloride ER (Potassium Chloride ER) 20 Meq Tab 20 MEQ PO DAILY Electrolyte Replacement #30 Ref 0 TAB Continued Medications: Carvedilol (Coreg) 6.25 Mg Tab 6.25 MG PO Q12HR Blood Pressure Management #60 TAB Dexamethasone (Dexamethasone) 4 Mg Tab 4 MG PO Q6HR Control Inflammation #120 TAB Enoxaparin Inj (Lovenox Inj) 80 mg/0.8 ML Syr 80 MG SQ Q12H Prevent Blood Clot #60 INJECTION Furosemide (Furosemide) 20 Mg Tab 20 MG PO BID@09,18 edema #60 TAB Hydrocodone-Acetaminophen (Hydrocodone-Acetaminophen) 10-325 mg Tab 1 TAB PO Q4HR PAIN SCALE 6 TO 10 #20 TAB (This prescription has been renewed) Levetiracetam (Keppra) 500 Mg Tab 500 MG PO Q12HR Control Seizures #60 TAB Sennosides-Docusate Sodium (Senna Plus 8.6-50 mg) 1 Tab Tab 1 TAB PO BID Constipation #60 TAB Discontinued Medications: Omeprazole (Omeprazole) 20 Mg Tab 20 MG PO DAILY #30 Ref 0 TAB Ashtyn Yuen MD Oct 26, 2016 15:24
--- NOTE | 2016-10-30 13:57 | RC ---
cc: EVELYN PAIGE MD, LYDIA T. MD VINAS,ESTEFANI SAEED M.D.,RICHARD MINOR M.D., ABDUL J. M.D. DATE OF SERVICE: 10/26/2016. REQUESTING PHYSICIAN: Dr. Estefani Soto. DIAGNOSIS: Glioblastoma multiforme status post surgical resection. CHIEF COMPLAINT: DVT , impaction. REASON FOR VISIT: The patient is being evaluated for continuation of care and adjuvant postoperative radiotherapy. HISTORY OF PRESENT ILLNESS: This is a 71-year-old white female whom I initially saw on 09/30/2016 for the above-mentioned diagnosis. The patient was supposed to return to our facility two weeks after surgical resection for radiation simulation treatment planning with the hope of starting the radiation therapy within four weeks of surgical resection. The patient did not show up for her evaluation and it was postponed per patient wishes. The patient now has been recently been admitted due to impaction and rectal bleeding. The patient also in the meantime had an umbrella placed. She also has had bilateral DVTs and is receiving Lovenox for this. I have discussed this case personally with Dr. Soto. I have been requested to evaluate the patient for continuation of her care. PAST MEDICAL HISTORY: As above. 1. History of atrial fibrillation. 2. Possible schizophrenia. 3. Hysterectomy. MEDICATIONS: As per the hospital chart. ALLERGIES: CODEINE. FAMILY HISTORY: As recorded. SOCIAL HISTORY: As recorded. REVIEW OF SYSTEMS: A 14-point review of systems was attempted but the patient was not cooperating today and did not want to answer any questions. PHYSICAL EXAMINATION: GENERAL: The patient is oriented in place and time. Again, she is not in a good mood and does not want to be bothered answering too many questions. LUNGS: To auscultation, bilateral lungs were clear to auscultation with appropriate ventilatory respiratory effort. HEART: Heart appeared to be in a regular rate and rhythm. No murmurs. NECK: Palpation of the neck and bilateral supraclavicular areas are free. NEUROLOGICAL EXAMINATION: The patient when asked to perform A neurological exam was not cooperative. ABDOMEN: Palpation of the abdominal cavity reveals no pain or abdominal masses. No periumbilical masses. EXTREMITIES: No swelling of the lower extremities. No other positive findings. SURGICAL PATHOLOGY: As recently recorded. RADIOLOGY STUDIES: CT of the abdomen and pelvis 10/24/2016. IMPRESSION: The AT findings are characteristic of rectal fecal impaction with colitis. Acute punctate foci of air in the perineum adjacent to the rectal vault and may represent small ulcerations or perforation. An 8 mm a stable right hepatic lobe cyst. ASSESSMENT: A 71-year white female with a diagnosis of glioblastoma multiforme status post surgical resection. The patient is being evaluated for adjuvant therapeutic treatment options. PLAN: I have asked the patient that I would like to move forward with postoperative radiation therapy as soon as possible. I have a time for her for Monday but in the present state that the patient is in, I do not know if she will be willing to do it. I have reached out to her daughter, at [phone] and left a message for her to call me back. I would like to discuss with her if it would be possible for her to do this simulation on Monday, otherwise I will move it to next week. During my conversation, the patient did not recall talking to me in the past. Today she was not cooperating. Hopefully by Monday or next week she will be able to do this as we would like to start the radiation therapy as soon as possible. The patient was advised that if I could be of any further assistance to please let me know otherwise we will proceed accordingly. Dr. Soto, thank you very much for the referral of this patient and for allowing me to participate in her care. Should you have any further questions or concerns, please do not hesitate to contact me. Abhinav York MD Radiation Oncologist TRUDY LIU/KAMRAN /5:04 PM /1:42 PM MTDAlejandra
== END 2016-10-26 17:38 | DRG 378 ==
LOC: NEPE 10:10 → NEDA 11:59 → N04B 14:23 → N04A 22:20 → N04B 22:20
PROVIDERS: ADMIT Family Medicine; ATTEND Family Medicine
PROC: 0DCP7ZZ Extirpation of Matter from Rectum, Via Natural or Artificial Opening (ICD-10-PCS; principal; 2016-10-24 18:48)
DX: K92.1 Melena (principal); N39.0 Urinary tract infection, site not specified; C71.2 Malignant neoplasm of temporal lobe; I48.0 Paroxysmal atrial fibrillation; B96.5 Pseudomonas (aeruginosa) (mallei) (pseudomallei) as the cause of diseases classified elsewhere; K56.41 Fecal impaction; F41.9 Anxiety disorder, unspecified; K52.9 Noninfective gastroenteritis and colitis, unspecified; E87.6 Hypokalemia; I10 Essential (primary) hypertension; F20.9 Schizophrenia, unspecified; Z86.711 Personal history of pulmonary embolism; Z86.718 Personal history of other venous thrombosis and embolism; Z79.01 Long term (current) use of anticoagulants; I25.2 Old myocardial infarction; Z87.891 Personal history of nicotine dependence
CPT/HCPCS: 51702; 74000; 74177; 80048; 80053; 81001; 83605; 83690; 83735; 84132; 85007; 85018; 85027; 85384; 85610; 85730; 86850; 86900; 86901; 87040; 87077; 87086; 87186; 96361; 96365; 99232; C9113; J0690; J0696; J1100; J1650; J2543; J3480; J7030; Q9967

== ENCOUNTER 2016-10-28 03:48 | Observation (INO) | payer MEDICARE, OTHER ==
[2016-10-28] VITALS (11 sets, daily range): BP systolic 108–134; BP diastolic 57–66; PULSE 47–65; RESP 16–18; TEMP 97.8–98.9; O2SAT 96–99
[~2016-10-28] VITALS: Ht 165.1 cm; Wt 86.5 kg
[~2016-10-28 03:48] MED LIST changes: +LEVA750T PO; +OMEP40CA2 PO; -PANT40TA3 PO; +POTA-163 PO
[2016-10-28] MEDS ORDERED: SODIUM CHLOR 0.9% 1000 ML INJ 1,000 ML IV SCH (04:17)
[2016-10-28] MEDS ORDERED: SODIUM CHLORIDE 0.9% FLUSH 10 ML FLUSH IVF PRN (04:30)
[2016-10-28] MEDS ORDERED: PANTOPRAZOLE INJ 80 MG in SODIUM CHLORIDE 0.9% INJ 35 ML IV ONE (04:30)
--- NOTE | 2016-10-28 04:35 | PD ---
HPI Chief Complaint: Bleeding Time Seen by Provider: 04:17 Travel History International Travel<30 days: No Contact w/Intl Traveler<30days: No Traveled to known affect area: No History of Present Illness HPI The patient is a 71-year-old female that was sent from [facility] by ambulance because of lower GI bleeding since yesterday. The patient does already have a history of anemia. She is a poor historian and has malignant neoplasm of the temporal lobe (glioblastoma) as well as schizophrenia and chronic pulmonary embolism. For this reason the patient has been put on Lovenox. There have apparently been no syncopal or near syncopal spells. At this time the CODE STATUS is unknown and I cannot find it in the long-term packet. The patient was discharged from the [facility] service on the of this month. Her hemoglobin at that time was 9.2. PFSH Past Medical History Arthritis: Yes Asthma: Yes Anxiety: Yes Depression: No Heart Rhythm Problems: No Cancer: Yes Cardiovascular Problems: Yes High Cholesterol: Yes Chemotherapy: No Congestive Heart Failure: Yes COPD: No Cerebrovascular Accident: Yes (TIA) Diabetes: Yes Patient Takes Glucophage: No Endocrine: Yes Gastrointestinal Disorders: No GERD: Yes Genitourinary: Yes Headaches: Yes Hypertension: Yes Immune Disorder: No Implanted Vascular Access Dvce: No Musculoskeletal: Yes Neurologic: Yes Psychiatric: Yes Reproductive: No Respiratory: No Immunizations Current: Yes Migraines: No Radiation Therapy: No Schizophrenia: Yes Seizures: Yes Sleep Apnea: Yes Tetanus Vaccination: Unknown Influenza Vaccination: No Past Surgical History Body Medical Devices: filter Cardiac Surgery: Yes (ivcf filter) Ear Surgery: No Endocrine Surgery: No Eye Surgery: No Genitourinary Surgery: No Gynecologic Surgery: Yes (historectomy) Hysterectomy: Yes Neurologic Surgery: Yes (numor removal ) Oral Surgery: No Thoracic Surgery: No Other Surgery: Yes (FACE LIFT; CRANIOTOMY ) Social History Alcohol Use: No Tobacco Use: No Substance Use: No Allergies-Medications (Allergen,Severity, Reaction): Coded Allergies: Codeine (Verified Allergy, Severe, nausea/vomiting/itching/sweating, ) Reported Meds & Prescriptions Reported Meds & Active Scripts Active Potassium Chloride ER (Potassium Chloride) 20 Meq Tab 20 Meq PO DAILY Omeprazole 40 Mg Cap 40 Mg PO DAILY Hydrocodone-Acetaminophen 10-325 mg Tab 1 Tab PO Q4HR Senna Plus 8.6-50 mg (Sennosides-Docusate Sodium) 1 Tab Tab 1 Tab PO BID Keppra (Levetiracetam) 500 Mg Tab 500 Mg PO Q12HR Furosemide 20 Mg Tab 20 Mg PO BID@,18 Lovenox Inj (Enoxaparin Sodium) 80 mg/0.8 ML Syr 80 Mg SQ Q12H Dexamethasone 4 Mg Tab 4 Mg PO Q6HR Coreg (Carvedilol) 6.25 Mg Tab 6.25 Mg PO Q12HR Review of Systems ROS Limitations: Poor Historian Except as stated in HPI: all other systems reviewed are Neg Physical Exam Narrative GENERAL: The patient appears anemic. Her vital signs show pulse rate of 56 with blood pressure 108/59 and oximetry 98%. Respirations are 16. The temperature is 98.9. SKIN: Warm and dry. HEAD: Atraumatic. Normocephalic. EYES: Pupils equal and round. No scleral icterus. No injection or drainage. ENT: No nasal bleeding or discharge. Mucous membranes pink and moist. NECK: Trachea midline. No JVD. CARDIOVASCULAR: Regular rate and rhythm. No murmur appreciated. RESPIRATORY: No accessory muscle use. Clear to auscultation. Breath sounds equal bilaterally. GASTROINTESTINAL: Abdomen soft, non-tender, nondistended. Hepatic and splenic margins not palpable. No guarding or rebound is present. MUSCULOSKELETAL: No obvious deformities. No clubbing. No cyanosis. No edema. NEUROLOGICAL: Awake and alert. No obvious cranial nerve deficits. Motor grossly within normal limits. Normal speech. PSYCHIATRIC: Appropriate mood and affect; insight and judgment normal. RECTAL EXAM: No masses or tenderness, stool is black and bloody and strongly guaiac positive Data Data Last Documented VS Vital Signs Date Time Temp Pulse Resp B/P Pulse Ox O2 Delivery O2 Flow Rate FiO2 10/28/16 05:52 65 16 115/63 99 Room Air 10/28/16 03:53 98.9 Orders Complete Blood Count With Diff (10/28/16 04:17) Comprehensive Metabolic Panel (10/28/16 04:17) Lipase (10/28/16 04:17) Prothrombin Time / Inr (Pt) (10/28/16 04:17) Act Partial Throm Time (Ptt) (10/28/16 04:17) Urinalysis - C+S If Indicated (10/28/16 04:17) Red Blood Cells (Rbc) (10/28/16 04:17) Blood Product Administration .UPON TRANSFUSION (10/28/16 04:17) Ecg Monitoring (10/28/16 04:17) Iv Access Insert/Monitor (10/28/16 04:17) Oximetry (10/28/16 04:17) Sodium Chlor 0.9% 1000 Ml Inj (Ns 1000 M (10/28/16 04:17) Sodium Chloride 0.9% Flush (Ns Flush) (10/28/16 04:30) Pantoprazole Inj (Protonix Inj) (10/28/16 04:30) Type And Screen (10/28/16 04:17) Electrocardiogram (10/28/16 04:25) B-Type Natriuretic Peptide (10/28/16 04:25) Chest, Pa & Lat (10/28/16 04:25) Admit Order (Ed Use Only) (10/28/16 05:52) Place In Observation (10/28/16 ) Vital Signs (Adult) Q4H (10/28/16 05:52) Activity Oob With Assistance (10/28/16 05:52) Garage Hand / Telemetry .CONTINUOUS (10/28/16 05:52) Diet Npo (10/28/16 Breakfast) Sodium Chloride 0.9% Flush (Ns Flush) (10/28/16 06:00) Sodium Chloride 0.9% Flush (Ns Flush) (10/28/16 09:00) Ondansetron Inj (Zofran Inj) (10/28/16 06:00) Case Management Consult (10/28/16 05:52) Scd Bilateral/Knee High GARRY.BID (10/28/16 05:52) Naloxone Inj (Narcan Inj) (10/28/16 06:00) Labs Laboratory Tests Test 10/28/16 04:30 White Blood Count 11.6 TH/MM3 Red Blood Count 3.12 MIL/MM3 Hemoglobin 9.3 GM/DL Hematocrit 27.0 % Mean Corpuscular Volume 86.5 FL Mean Corpuscular Hemoglobin 29.9 PG Mean Corpuscular Hemoglobin 34.6 % Concent Red Cell Distribution Width 14.4 % Platelet Count 184 TH/MM3 Mean Platelet Volume 9.3 FL Neutrophils (%) (Auto) 84.5 % Lymphocytes (%) (Auto) 10.6 % Monocytes (%) (Auto) 4.2 % Eosinophils (%) (Auto) 0.0 % Basophils (%) (Auto) 0.7 % Neutrophils # (Auto) 9.8 TH/MM3 Lymphocytes # (Auto) 1.2 TH/MM3 Monocytes # (Auto) 0.5 TH/MM3 Eosinophils # (Auto) 0.0 TH/MM3 Basophils # (Auto) 0.1 TH/MM3 CBC Comment AUTO DIFF Differential Total Cells 100 Counted Neutrophils % (Manual) 66 % Band Neutrophils % 11 % Lymphocytes % 5 % Monocytes % 7 % Neutrophils # (Manual) 10.2 TH/MM3 Metamyelocytes 9 % Promyelocytes 2 % Differential Comment FINAL DIFF MANUAL Platelet Estimate NORMAL Platelet Morphology Comment NORMAL Ovalocytes 1+ Prothrombin Time 12.0 SEC Prothromb Time International 1.1 RATIO Ratio Activated Partial 26.3 SEC Thromboplast Time Sodium Level 137 MEQ/L Potassium Level 3.8 MEQ/L Chloride Level 103 MEQ/L Carbon Dioxide Level 25.1 MEQ/L Anion Gap 9 MEQ/L Blood Urea Nitrogen 13 MG/DL Creatinine 0.47 MG/DL Estimat Glomerular Filtration 130 ML/MIN Rate Random Glucose 165 MG/DL Calcium Level 7.8 MG/DL Total Bilirubin 0.5 MG/DL Aspartate Amino Transf 20 U/L (AST/SGOT) Alanine Aminotransferase 25 U/L (ALT/SGPT) Alkaline Phosphatase 71 U/L B-Type Natriuretic Peptide 80 PG/ML Total Protein 5.1 GM/DL Albumin 2.1 GM/DL Lipase 167 U/L Blood Type A POSITIVE Antibody Screen NEGATIVE Crossmatch Leukocyte-Reduced Red Blood Cells Blood Bank Comment MDM Medical Decision Making Medical Screen Exam Complete: Yes Emergency Medical Condition: Yes Medical Record Reviewed: Yes Differential Diagnosis GI bleed with anemia, coagulopathy, electrolyte disorder, renal insufficiency Narrative Course The patient has a GI bleed with anemia. His hemoglobin is essentially unchanged from 2 days ago but the patient has black/maroon stool on rectal exam. It may be that he will adjust downwards because of this blood loss. At this time I cannot quantitate the amount of blood loss simply on a rectal exam. Plan: The patient will be [address] Beard. Procedures EKG Prior to Arrival: No Diagnosis Primary Impression: Rectal bleeding Additional Impression: Anemia Jair Carlson MD 24, 2017 04:35
[2016-10-28 04:45] LABS: AUTOMATED NEUTROPHIL # 9.8 TH/MM3 (1.8-7.7); BASOPHIL # 0.1 TH/MM3 (0-0.2); BASOPHIL % 0.7 % (0.0-2.0); LYMPH % 10.6 % (9.0-44.0); LYMPHOCYTE # 1.2 TH/MM3 (1.0-4.8); MEAN CELL VOLUME 86.5 FL (80.0-100.0); MEAN CORPUSCULAR HEMOGLOBIN 29.9 PG (27.0-34.0); MEAN CORPUSCULAR HGB CONC 34.6 % (32.0-36.0); MONO % 4.2 % (0.0-8.0); NEUT % 84.5 % (16.0-70.0); PLATELET COUNT 184 TH/MM3 (150-450); RED BLOOD COUNT 3.12 MIL/MM3 (4.00-5.30); RED CELL DISTRIBUTION WIDTH 14.4 % (11.6-17.2); WHITE BLOOD COUNT 11.6 TH/MM3 (4.0-11.0)
[2016-10-28 04:47] LABS: HEMO FLAGS AUTO DIFF
[2016-10-28 04:54] LABS: APTT (PATIENT) 26.3 SEC (24.3-30.1); INTERNATIONAL NORMALIZED RATIO 1.1 RATIO
[2016-10-28 05:14] LABS: BANDS 11 % (0-6); METAMYELOCYTES 9 % (0-1); NEUTROPHIL # MANUAL DIFF 10.2 TH/MM3 (1.8-7.7); POLYS (SEG NEUTROPHILS) 66 % (16-70); PROMYELOCYTES 2 % (0-0); WBC DIFF SAMPLE 100
[2016-10-28 05:16] LABS: PLATELET ESTIMATE SMEAR NORMAL (NORMAL); PLATELET MORPHOLOGY NORMAL (NORMAL); SCAN/DIFF FINAL DIFF MANUAL
[2016-10-28 05:17] LABS: OVALOCYTES 1+ (NORMAL)
[2016-10-28 05:26] LABS: ALKALINE PHOSPHATASE 71 U/L (45-117); ALT (GPT) 25 U/L (10-53); ANION GAP 9 MEQ/L (5-15); AST (GOT) 20 U/L (15-37); BICARBONATE 25.1 MEQ/L (21.0-32.0); BLOOD UREA NITROGEN 13 MG/DL (7-18); CHLORIDE 103 MEQ/L (98-107); GLOMERULAR FILTRATION RATE 130 ML/MIN (>89); POTASSIUM 3.8 MEQ/L (3.5-5.1); SODIUM (NA) 137 MEQ/L (136-145); TOTAL BILIRUBIN ADULT 0.5 MG/DL (0.2-1.0)
--- NOTE | 2016-10-28 05:54 | RADRPT ---
EXAM DATE/TIME: 10/28/2016 05:44 [facility] COMPARISON: No previous studies available for comparison. INDICATIONS : Shortness of breath. MEDICAL HISTORY : Cardiovascular disease. Atrial fibrillation. Schizophrenia. Paranoia and Hallucinations. SURGICAL HISTORY : None. ENCOUNTER: Initial ACUITY: 2 days PAIN SCORE: 0/10 LOCATION: chest FINDINGS: PA and lateral views of the chest demonstrate the lungs to be symmetrically aerated without evidence of mass, infiltrate or effusion. The cardiomediastinal contours are unremarkable. Osseous structure s are intact. CONCLUSION: Normal examination. Flynn Canales Jr., MD on October 28, 2016 at 5:52 Board Certified Radiologist. This report was verified electronically.
[2016-10-28] MEDS ORDERED: SODIUM CHLORIDE 0.9% FLUSH 10 ML FLUSH IV FLUSH PRN (06:00)
[2016-10-28] MEDS ORDERED: ONDANSETRON HCL 4 MG/2 ML VIAL IVP PRN (06:00)
[2016-10-28] MEDS ORDERED: NALOXONE HCL 0.4 MG/ML AMP IV PRN (06:00)
[2016-10-28] MEDS: SODIUM CHLORIDE 0.9% FLUSH 10 ML FLUSH IV FLUSH SCH ×2 (07:54→21:00)
[2016-10-28 08:36] LABS: HEMATOCRIT 26.8 % (35.0-46.0); REVIEW FLAG FINAL
--- NOTE | 2016-10-28 10:49 | HHI.HP ---
[facility] No Primary Care Physician Admission Diagnosis rectal bleeding, patient on Lovenox for pulmonary emboli Diagnoses: Chief Complaint: GI bleeding. Travel History International Travel<30 Days: No Contact w/Intl Traveler <30 Da: No Traveled to Known Affected Are: No History of Present Illness Ms. Bay is a 71-year-old female with a history of glioblastoma multiforme and, pulmonary embolism currently on Lovenox who presented to the emergency department due to persistent lower GI bleed. Patient reports that since September 19, 2016 she has been having off and on lower GI bleed. She usually feels fatigued. She was recently admitted to the hospital for similar symptoms as well as fecal impaction. Colorectal surgery evaluated her during the last admission. Patient was discharged on 10/26/2016 and was continued on Lovenox. Patient has an IVC filter. Currently patient reports feeling very tired. Denies any chest pain, shortness of breath, fever or chills. Her hemoglobin on admission was 9.3 and repeat hemoglobin 9.1. No blood transportation has been administered. Denies any changes in bladder habits. Mr. Bay was diagnosed with glioblastoma multiforme in September 2016 when she developed increasing confusion and hallucination. Imaging studies indicated a mass in the right temporal area. She underwent resection on 09/28/2016. CT thorax on 09/25/2016 showed pulmonary embolism and subsequently patient underwent IVC umbrella filter placement prior to surgery. She was receiving low -dose Lovenox following surgery but unfortunately patient developed new venous thrombosis. On 10/11/2016 she was found to have extensive occlusive thrombus within the femoral popliteal, peroneal and posterior tibial as well as greater saphenous veins of the left lower extremity. Her Lovenox was increased to 80 mg every 12 hours. Review of Systems ROS Limitations: Other (negative except as noted in the history of present illness) Past Family Social History Past Medical History DVT, PE, prior GI bleed, glioblastoma multiforme Past Surgical History Hysterectomy, stereotactic image guided right temporal craniotomy with resection of glioblastoma multiforme Reported Medications Potassium Chloride ER (Potassium Chloride) 20 Meq Tab 20 Meq PO DAILY Omeprazole 40 Mg Cap 40 Mg PO DAILY Hydrocodone-Acetaminophen 10-325 mg Tab 1 Tab PO Q4HR Senna Plus 8.6-50 mg (Sennosides-Docusate Sodium) 1 Tab Tab 1 Tab PO BID Keppra (Levetiracetam) 500 Mg Tab 500 Mg PO Q12HR Furosemide 20 Mg Tab 20 Mg PO BID@,18 Lovenox Inj (Enoxaparin Sodium) 80 mg/0.8 ML Syr 80 Mg SQ Q12H Dexamethasone 4 Mg Tab 4 Mg PO Q6HR Coreg (Carvedilol) 6.25 Mg Tab 6.25 Mg PO Q12HR Allergies: Coded Allergies: Codeine (Verified Allergy, Severe, nausea/vomiting/itching/sweating, ) Family History Father had cancer and mother had diabetes mellitus. Social History Patient denies using tobacco, alcohol, illicit drugs. Physical Exam Vital Signs Vital Signs Date Time Temp Pulse Resp B/P Pulse Ox O2 Delivery O2 Flow Rate FiO2 10/28/16 09:22 97.8 62 17 109/61 99 Room Air 10/28/16 07:18 98.1 60 17 134/63 99 Partial Rebreather 10/28/16 07:10 81 17 100 Room Air 10/28/16 05:52 65 16 115/63 99 Room Air 10/28/16 04:46 62 16 119/57 98 Room Air 10/28/16 04:45 18 10/28/16 03:55 16 10/28/16 03:53 98.9 56 16 108/59 98 Physical Exam GENERAL: This is a well-nourished, well-developed patient, in no apparent distress but appears lethargic. SKIN: No rashes, ecchymoses or lesions. Warm and dry. HEAD: Atraumatic. Normocephalic. No temporal or scalp tenderness. EYES: Pupils equal round and reactive. No injection or drainage. ENT: Nose without bleeding, purulent drainage or septal hematoma. Airway patent. NECK: Trachea midline. No lymphadenopathy. Supple, nontender, no meningeal signs. CARDIOVASCULAR: Regular rate and rhythm without murmurs, gallops, or rubs. No JVD. RESPIRATORY: Clear to auscultation. Breath sounds equal bilaterally. No wheezes , rales, or rhonchi. GASTROINTESTINAL: Abdomen soft, non-tender, nondistended. No guarding. MUSCULOSKELETAL: Extremities without clubbing, cyanosis, or edema. NEUROLOGICAL: Awake and alert. Cranial nerves II through XII intact. No focal neurological deficits. Normal speech. Laboratory Laboratory Tests Test 10/28/16 10/28/16 04:30 07:57 White Blood Count 11.6 Red Blood Count 3.12 Hemoglobin 9.3 9.1 Hematocrit 27.0 26.8 Mean Corpuscular Volume 86.5 Mean Corpuscular Hemoglobin 29.9 Mean Corpuscular Hemoglobin 34.6 Concent Red Cell Distribution Width 14.4 Platelet Count 184 Mean Platelet Volume 9.3 Neutrophils (%) (Auto) 84.5 Lymphocytes (%) (Auto) 10.6 Monocytes (%) (Auto) 4.2 Eosinophils (%) (Auto) 0.0 Basophils (%) (Auto) 0.7 Neutrophils # (Auto) 9.8 Lymphocytes # (Auto) 1.2 Monocytes # (Auto) 0.5 Eosinophils # (Auto) 0.0 Basophils # (Auto) 0.1 CBC Comment AUTO DIFF Differential Total Cells 100 Counted Neutrophils % (Manual) 66 Band Neutrophils % 11 Lymphocytes % 5 Monocytes % 7 Neutrophils # (Manual) 10.2 Metamyelocytes 9 Promyelocytes 2 Differential Comment FINAL DIFF MANUAL Platelet Estimate NORMAL Platelet Morphology Comment NORMAL Ovalocytes 1+ Prothrombin Time 12.0 Prothromb Time International 1.1 Ratio Activated Partial 26.3 Thromboplast Time Sodium Level 137 Potassium Level 3.8 Chloride Level 103 Carbon Dioxide Level 25.1 Anion Gap 9 Blood Urea Nitrogen 13 Creatinine 0.47 Estimat Glomerular Filtration 130 Rate Random Glucose 165 Calcium Level 7.8 Total Bilirubin 0.5 Aspartate Amino Transf 20 (AST/SGOT) Alanine Aminotransferase 25 (ALT/SGPT) Alkaline Phosphatase 71 B-Type Natriuretic Peptide 80 Total Protein 5.1 Albumin 2.1 Lipase 167 Blood Type A POSITIVE Antibody Screen NEGATIVE Crossmatch Leukocyte-Reduced Red Blood Cells Blood Bank Comment Result Diagram: 10/28/16 0757 10/28/16 0430 Imaging Last Impressions Chest X-Ray 10/28/16424 Signed Impressions: Service Date/Time: Friday, October 28, 2016 05:44 - CONCLUSION: Normal examination. Flynn Canales Jr., MD Assessment and Plan Problem List: (1) GI bleed ICD Code: K92.2 Status: Acute (2) Glioblastoma multiforme ICD Code: C71.9 Status: Acute (3) Pulmonary embolism ICD Code: I26.99 Status: Acute Assessment and Plan Ms. Bay is a 71-year-old female with a history of recently diagnosed glioblastoma multiforme, DVT and PE currently on Lovenox who presents to the emergency department due to rectal bleeding. Patient reports persistent rectal bleeding since September 19, 2016. She reports feeling fatigued. Hemoglobin 9.3 and 9.1 on admission. - Lower GI bleed - Will discontinue Lovenox for now. Patient has an IVC filter in place. - Colorectal surgery consulted. - Patient received 80 mg of Protonix. We'll continue Protonix 40 mg daily. - Will transfuse if Hgb < 7.0. - Glioblastoma multiforme - Status post surgical resection. Continue Decadron 4 mg every 6 hours, Keppra 500 mg every 12 hours. - We will use Sliding scale insulin if blood glucose > 180. Last BS was 165. - History of Bilateral DVT - History of Pulmonary embolism - In patients with a diagnosis of cancer and DVT/PE, Lovenox is the treatment of choice. However given patient's history of persistent GI bleed we may need to discontinue Lovenox for now. - We'll wait for further recommendation from colorectal surgery. DNR. IVC filter. Omayra Ellis DO Oct 28, 2016 10:49 am
[2016-10-28] MEDS ORDERED: ACETAMINOPHEN 500 MG CPLT PO PRN (12:00)
[2016-10-28] MEDS ORDERED: ACETAMINOPHEN/HYDROcodone 325 MG/10 MG TAB PO SCH (12:00)
[2016-10-28] MEDS ORDERED: ACETAMINOPHEN/HYDROcodone 325 MG/7.5 MG TAB PO PRN (12:00)
[2016-10-28] MEDS: DEXAMETHASONE 4 MG TAB PO SCH ×3 (12:06→23:51)
[2016-10-28 13:37] LABS: HEMATOCRIT 26.5 % (35.0-46.0); REVIEW FLAG FINAL
--- NOTE | 2016-10-28 16:52 | MB ---
cc: RICHARD JUAREZ M.D. DATE OF CONSULTATION 10/28/16 CHIEF COMPLAINT Rectal bleeding. HISTORY OF PRESENT ILLNESS The patient is a 71-year-old female who was just discharged from the hospital after a recent admission for a similar complaint. She was in a fairly good state of health until September of this year, when she was noted to have some problems with her thinking as well as headaches, and was found to have a mass in her right occipital temporal area. She underwent biopsy which revealed a glioblastoma multiforme and then underwent craniotomy with a right temporal lobe resection. Postoperatively, she developed a pulmonary embolism and an IVC filter was placed. Subsequent to this she developed clots in both of her lower extremities. She was placed on a higher dose of Lovenox and then was discharged to the [facility] AT [facility]. She was brought back to the hospital at her last admission after passing some small amounts of dark red blood. At the time of admission, however, she also reported that she had a lot of pain and pressure in her rectum. She had had some diarrheal stools but no formed or full stools for quite some time. CT scan was performed which did reveal the expected impaction. She then underwent a disimpaction by myself and was watched for 24-48 hours, as there was some question of perforation on her original CT as well. She was then started on a diet and Dr. Soto was seeing her for blood thinners with the plan to start her on a half dose of blood thinners. However, she actually was discharged on a full dose of the blood thinners. That was two days ago. She returns today with continued bleeding. Her hemoglobin on admission today is 9.3. Her hemoglobin on discharge was 9.2. PAST MEDICAL HISTORY 1. Hypertension 2. Cardiomyopathy. 3. Glioblastoma multiforme. 4. Schizophrenia. 5. Pulmonary embolism. 6. Atrial fibrillation. PAST SURGICAL HISTORY 1. Stereotactic biopsy. 2. Temporal craniotomy. 3. Hysterectomy with bilateral salpingo-oophorectomy. 4. Face lift. 5. IVC filters. ALLERGIES Codeine. MEDICATIONS See nurse's notes for details. SOCIAL HISTORY The patient had a distant history of tobacco but no current alcohol or tobacco. REVIEW OF SYSTEMS Significant mostly for fatigue and rectal bleeding, although on discussion with the patient currently reports that she has not had any rectal bleeding. She denies any nausea, vomiting, abdominal pain, headaches, fevers, shortness of breath or chest pain. PHYSICAL EXAMINATION GENERAL: An alert female who is somnolent but awakens easily. NEUROLOGIC: Grossly intact. SKIN: Warm and dry. CARDIOVASCULAR: Regular rate. Breathing is symmetric bilaterally and nonlabored. ABDOMEN: Soft, nondistended, nontender. EXTREMITIES: 2+ edema bilaterally in the lower extremities with just trace edema in the upper extremities. LABORATORY DATA Hemoglobin on admission was 9.3. It was 9.1 on recheck. White count 11.6, platelets of 184. Chemistry is essentially normal as are coags. IMPRESSION 1. Lower GI bleed. The Lovenox has been held and, according to Dr. Soto, he recommends starting it at half dose tomorrow, assuming she has no further significant bleeding. I do not think in her current state of health aggressive evaluation of the colon is warranted unless we cannot get the bleeding stopped. 2. Recent impaction. I will for put her on laxative program to be sure that she does continue to move her bowels and we avoid any problems with severe constipation or stercoral ulcer. Thank you very much for your kind referral. MD KENZIE Rasmussen/ /3:31 PM /4:34 PM MTDD
[2016-10-28] MEDS: POLYETHYLENE GLYCOL 17 GM PKG PO SCH (16:55)
[2016-10-28 17:35] LABS: HEMATOCRIT 26.1 % (35.0-46.0); REVIEW FLAG FINAL
[2016-10-28] MEDS ORDERED: FUROSEMIDE 20 MG TAB PO SCH (18:00)
[2016-10-28 20:35] LABS: HEMATOCRIT 25.9 % (35.0-46.0); REVIEW FLAG FINAL
[2016-10-28] MEDS: DOCUSATE SODIUM 50 MG/SENNA 8.6 MG TAB PO SCH (21:00)
[2016-10-28] MEDS: CARVEDILOL 6.25 MG TAB PO SCH (21:40)
[2016-10-28] MEDS: levETIRAcetam 500 MG TAB PO SCH (21:40)
[2016-10-29] VITALS (7 sets, daily range): BP systolic 103–154; BP diastolic 59–73; PULSE 53–74; RESP 16–20; TEMP 97.3–98.2; O2SAT 95–99
[2016-10-29] MEDS: DEXAMETHASONE 4 MG TAB PO SCH ×3 (06:09→18:58)
[2016-10-29] MEDS ORDERED: NON-FORMULARY DRUG (Omeprazole 40 MG) PO SCH (09:00)
[2016-10-29] MEDS: PANTOPRAZOLE SOD 40 MG DELAYED RELEASE TAB PO SCH (09:52)
[2016-10-29] MEDS: levETIRAcetam 500 MG TAB PO SCH (09:52)
[2016-10-29] MEDS: POTASSIUM CHLORIDE 20 MEQ CONTROLLED RELEASE TAB PO SCH (09:53)
[2016-10-29] MEDS: POLYETHYLENE GLYCOL 17 GM PKG PO SCH ×2 (10:01→10:05)
[2016-10-29] MEDS: CARVEDILOL 6.25 MG TAB PO SCH (10:02)
[2016-10-29] MEDS: DOCUSATE SODIUM 50 MG/SENNA 8.6 MG TAB PO SCH ×2 (10:02→21:00)
[2016-10-29] MEDS: SODIUM CHLORIDE 0.9% FLUSH 10 ML FLUSH IV FLUSH SCH (10:02)
--- NOTE | 2016-10-29 11:02 | EKG ---
Date Performed: 10/28/2016 Time Performed: 05:18:30 PTAGE: 71 years EKG: Apparent Sinus rhythm Electrical interferences preclude further analysis of this tracing ABNORMAL ECG PREVIOUS TRACING : 10/06/2016 17.52 DOCTOR: Julissa Garcia Interpretating Date/Time 10/29/2016 10:59:54
[2016-10-29] MEDS: ENOXAPARIN SODIUM 60 MG/0.6 ML SYRINGE SQ SCH (12:14)
--- NOTE | 2016-10-29 12:31 | HHI.PR ---
Subjective Remarks Anemia/ GI Bleed No complaints Objective Vital Signs Date Time Temp Pulse Resp B/P Pulse Ox O2 Delivery O2 Flow Rate FiO2 10/29/16 11:52 97.9 74 20 103/64 99 10/29/16 08:05 97.7 53 20 154/70 99 10/29/16 03:58 97.9 63 18 110/59 95 10/29/16 00:21 98.0 60 18 110/68 96 10/28/16 20:00 47 10/28/16 19:03 98.3 60 16 115/61 97 10/28/16 16:02 54 18 116/58 96 10/28/16 12:32 97.9 55 18 120/62 99 Result Diagram: 10/28/16202110/28/16 0430 Objective Remarks Abdomen benign Assessment and Plan Assessment and Plan management of Lovenox per Pauline Valera MD Oct 29, 2016 12:31
--- NOTE | 2016-10-29 15:06 | HHI.PR ---
Subjective Remarks Follow-up for GI bleed in a patient with a history of DVT, PE and glioblastoma multiforme. Patient is currently doing well. She wants to go home. She still feels very lethargic. Objective Vitals Vital Signs Date Time Temp Pulse Resp B/P Pulse Ox O2 Delivery O2 Flow Rate FiO2 10/29/16 11:52 97.9 74 20 103/64 99 10/29/16 08:05 97.7 53 20 154/70 99 10/29/16 03:58 97.9 63 18 110/59 95 10/29/16 00:21 98.0 60 18 110/68 96 10/28/16 20:00 47 10/28/16 19:03 98.3 60 16 115/61 97 10/28/16 16:02 54 18 116/58 96 Result Diagram: 10/28/16202110/28/16 043 Imaging Last Impressions Chest X-Ray 10/28/16 0425 Signed Impressions: Service Date/Time: Friday, October 28, 2016 05:44 - CONCLUSION: Normal examination. Flynn Canales Jr., MD Objective Remarks GENERAL: Alert, NAD. SKIN: Warm and dry. HEAD: Normocephalic. EYES: No scleral icterus. No injection or drainage. NECK: Supple, trachea midline. No JVD or lymphadenopathy. CARDIOVASCULAR: Regular rate and rhythm without murmurs, gallops, or rubs. RESPIRATORY: Breath sounds equal bilaterally. No accessory muscle use. GASTROINTESTINAL: Abdomen soft, non-tender, nondistended. MUSCULOSKELETAL: No cyanosis, or edema. BACK: Nontender without obvious deformity. No CVA tenderness. Procedures None A/P Problem List: (1) GI bleed ICD Code: K92.2 Status: Acute (2) Glioblastoma multiforme ICD Code: C71.9 Status: Acute (3) Pulmonary embolism ICD Code: I26.99 Status: Acute Assessment and Plan Ms. Bay is a 71-year-old female with a history of recently diagnosed glioblastoma multiforme, DVT and PE currently on Lovenox who presents to the emergency department due to rectal bleeding. Patient reports persistent rectal bleeding since September 19, 2016. She reports feeling fatigued. Hemoglobin 9.3 and 9.1 on admission. - Lower GI bleed - Patient has an IVC filter in place. Will start Lovenox 0.5mg/kg BID per Dr. Soto's recommendations. - Colorectal surgery following - no surgical intervention planned at this point. - Patient received 80 mg of Protonix. We'll continue Protonix 40 mg daily. - Will transfuse if Hgb < 7.0. Hemoglobin 9.0. - Glioblastoma multiforme - Status post surgical resection. Continue Decadron 4 mg every 6 hours, Keppra 500 mg every 12 hours. - We will use Sliding scale insulin if blood glucose > 180. Last BS was 165. - History of Bilateral DVT - History of Pulmonary embolism - In patients with a diagnosis of cancer and DVT/PE, Lovenox is the treatment of choice. - Start Lovenox 50 mg every 12 hours. If patient remains asymptomatic and no further bleeding, we may increase Lovenox to 0.7 on 0.8 mg per KG every 12 hours. - Possible discharge 10/30/2016 or more likely 10/31/2016. DNR. IVC filter, Lovenox 0.5mg/kg Q12hrs. Omayra Ellis DO Oct 29, 2016 3:06 pm
[2016-10-30] VITALS (7 sets, daily range): BP systolic 96–130; BP diastolic 47–76; PULSE 57–70; RESP 18; TEMP 96.2–98.2; O2SAT 97–100
[2016-10-30] MEDS: levETIRAcetam 500 MG TAB PO SCH ×3 (01:00→19:50)
[2016-10-30] MEDS: CARVEDILOL 6.25 MG TAB PO SCH ×3 (01:01→19:50)
[2016-10-30] MEDS: DEXAMETHASONE 4 MG TAB PO SCH ×5 (01:02→22:44)
[2016-10-30] MEDS: POLYETHYLENE GLYCOL 17 GM PKG PO SCH (09:00)
[2016-10-30] MEDS: SODIUM CHLORIDE 0.9% FLUSH 10 ML FLUSH IV FLUSH SCH ×2 (09:00→19:50)
[2016-10-30] MEDS: DOCUSATE SODIUM 50 MG/SENNA 8.6 MG TAB PO SCH ×4 (09:30→21:00)
[2016-10-30] MEDS: POTASSIUM CHLORIDE 20 MEQ CONTROLLED RELEASE TAB PO SCH (09:30)
[2016-10-30] MEDS: PANTOPRAZOLE SOD 40 MG DELAYED RELEASE TAB PO SCH (09:30)
[2016-10-30] MEDS: ENOXAPARIN SODIUM 60 MG/0.6 ML SYRINGE SQ SCH ×3 (11:51→22:44)
--- NOTE | 2016-10-30 12:28 | HHI.PR ---
Subjective Remarks Anemia/ GI Bleed Comfortable, passing stool Objective Vital Signs Date Time Temp Pulse Resp B/P Pulse Ox O2 Delivery O2 Flow Rate FiO2 10/30/16 08:00 96.4 60 18 118/70 98 10/30/16 05:23 97.0 57 18 121/75 100 10/30/16 00:03 97.0 66 18 120/76 98 10/29/16 20:31 97.3 59 16 117/73 97 10/29/16 19:43 98.2 62 18 112/66 98 10/29/16 16:20 97.7 69 20 117/65 96 I/O 10/29/16 10/29/16 10/29/16 10/30/16 10/30/16 10/30/16 07:00 15:00 23:00 07:00 15:00 23:00 Intake Total 480 ml Balance 480 ml Intake Oral 480 ml # Voids 2 # Bowel Movements 0 Result Diagram: 10/30/16 0900 10/28/16 0430 Objective Remarks Abdomen benign Assessment and Plan Assessment and Plan Hgb stable With clear reason for bleeding, would not recommend urgent colonoscopy in this extremely frail patient However, if bleeds again with resumption of Lovenox, will prep tomorrow and attempt colonoscopy Monday Pauline Toney MD Oct 30, 2016 12:28
--- NOTE | 2016-10-30 23:35 | HHI.PR ---
Subjective Remarks Follow-up for GI bleed in a patient with a history of DVT, PE and glioblastoma multiforme. Patient feels weak, lethargic. Wants to go home. No fever, chills. Denies any further bleeding today. Objective Vitals Vital Signs Date Time Temp Pulse Resp B/P Pulse Ox O2 Delivery O2 Flow Rate FiO2 10/30/16 19:39 98.2 63 18 96/47 99 10/30/16 16:00 96.9 67 18 102/58 99 10/30/16 14:17 70 10/30/16 12:00 96.2 70 18 130/70 97 10/30/16 08:00 96.4 60 18 118/70 98 10/30/16 05:23 97.0 57 18 121/75 100 10/30/16 00:03 97.0 66 18 120/76 98 I/O 10/29/16 10/29/16 10/29/16 10/30/16 10/30/16 10/30/16 07:00 15:00 23:00 07:00 15:00 23:00 Intake Total 480 ml 600 ml 360 ml Balance 480 ml 600 ml 360 ml Intake Oral 480 ml 600 ml 360 ml # Voids 2 1 1 # Bowel Movements 0 1 1 Result Diagram: 10/30/16 0900 10/28/16 0430 Imaging Last Impressions Chest X-Ray 10/28/16424 Signed Impressions: Service Date/Time: Friday, October 28, 2016 05:44 - CONCLUSION: Normal examination. Flynn Canales Jr., MD Objective Remarks GENERAL: Alert, NAD. SKIN: Warm and dry. HEAD: Normocephalic. EYES: No scleral icterus. No injection or drainage. NECK: Supple, trachea midline. No JVD or lymphadenopathy. CARDIOVASCULAR: Regular rate and rhythm without murmurs, gallops, or rubs. RESPIRATORY: Breath sounds equal bilaterally. No accessory muscle use. GASTROINTESTINAL: Abdomen soft, non-tender, nondistended. MUSCULOSKELETAL: No cyanosis, or edema. BACK: Nontender without obvious deformity. No CVA tenderness. Procedures None A/P Problem List: (1) GI bleed ICD Code: K92.2 Status: Acute (2) Glioblastoma multiforme ICD Code: C71.9 Status: Acute (3) Pulmonary embolism ICD Code: I26.99 Status: Acute Assessment and Plan Ms. Bay is a 71-year-old female with a history of recently diagnosed glioblastoma multiforme, DVT and PE currently on Lovenox who presents to the emergency department due to rectal bleeding. Patient reports persistent rectal bleeding since September 19, 2016. She reports feeling fatigued. Hemoglobin 9.3 and 9.1 on admission. - Lower GI bleed - Patient has an IVC filter in place. Continue Lovenox 0.5mg/kg BID per Dr. Soto's recommendations. - Colorectal surgery following - no surgical intervention planned at this point. - Patient received 80 mg of Protonix. We'll continue Protonix 40 mg daily. - Will transfuse if Hgb < 7.0. Hemoglobin 9.3. - Discussed with patient's son and Dr. Toney ([facility]). Dr. Toney does not recommend colonoscopy at this point. - If further bleed occurs, Colonoscopy may be done on 11/01/2016. - Glioblastoma multiforme - Generalized weakness - Status post surgical resection. Continue Decadron 4 mg every 6 hours, Keppra 500 mg every 12 hours. - We will use Sliding scale insulin if blood glucose > 180. Last BS was 165. - Will obtain PT consult. Patient may benefit from Palliative care consult. - History of Bilateral DVT - History of Pulmonary embolism - In patients with a diagnosis of cancer and DVT/PE, Lovenox is the treatment of choice. - Continue Lovenox 50 mg every 12 hours. If patient remains asymptomatic and no further bleeding, we may increase Lovenox to 0.7 on 0.8 mg per KG every 12 hours. - Possible discharge 10/30/2016 or more likely 10/31/2016. DNR. IVC filter, Lovenox 0.5mg/kg Q12hrs. Omayra Ellis DO Oct 30, 2016 23:35
[2016-10-31 01:10] VITALS: BP 100/69; PULSE 94; RESP 17; TEMP 96.8; O2SAT 97
[2016-10-31 03:30] VITALS: BP 100/54; PULSE 68; RESP 16; TEMP 96.4; O2SAT 95
[2016-10-31] MEDS: DEXAMETHASONE 4 MG TAB PO SCH ×3 (05:13→17:28)
[2016-10-31 07:04] VITALS: BP 139/82; PULSE 66; RESP 18; TEMP 95.3; O2SAT 100
[2016-10-31] MEDS: CARVEDILOL 6.25 MG TAB PO SCH ×2 (08:39→21:05)
[2016-10-31] MEDS: POLYETHYLENE GLYCOL 17 GM PKG PO SCH ×2 (08:39→08:48)
[2016-10-31] MEDS: POTASSIUM CHLORIDE 20 MEQ CONTROLLED RELEASE TAB PO SCH (08:39)
[2016-10-31] MEDS: levETIRAcetam 500 MG TAB PO SCH ×2 (08:40→21:05)
[2016-10-31] MEDS: PANTOPRAZOLE SOD 40 MG DELAYED RELEASE TAB PO SCH (08:41)
[2016-10-31] MEDS: SODIUM CHLORIDE 0.9% FLUSH 10 ML FLUSH IV FLUSH SCH ×2 (08:41→21:00)
--- NOTE | 2016-10-31 10:03 | HHI.PR ---
Subjective Remarks Follow-up for GI bleed in a patient with a history of DVT, PE and glioblastoma multiforme. Ms. Bya is currently doing well and denies any suicidal ideations. However, earlier in the morning, she tried to hurt herself with a fork. When asked, she only says 'might as well'. Objective Vitals Vital Signs Date Time Temp Pulse Resp B/P Pulse Ox O2 Delivery O2 Flow Rate FiO2 10/31/16 07:04 95.3 66 18 139/82 100 10/31/16 03:30 96.4 68 16 100/54 95 10/31/16 01:10 96.8 94 17 100/69 97 10/30/16 19:39 98.2 63 18 96/47 99 10/30/16 16:00 96.9 67 18 102/58 99 10/30/16 14:17 70 10/30/16 12:00 96.2 70 18 130/70 97 I/O 10/30/16 10/30/16 10/30/16 10/31/16 10/31/16 10/31/16 07:00 15:00 23:00 07:00 15:00 23:00 Intake Total 600 ml 360 ml 240 ml Balance 600 ml 360 ml 240 ml Intake Oral 600 ml 360 ml 240 ml # Voids 2 1 1 3 # Bowel Movements 0 1 1 0 Result Diagram: 10/30/16 0900 10/28/16 0430 Imaging Last Impressions Chest X-Ray 10/28/16 0425 Signed Impressions: Service Date/Time: Friday, October 28, 2016 05:44 - CONCLUSION: Normal examination. Flynn Canales Jr., MD Objective Remarks GENERAL: Alert, NAD. SKIN: Warm and dry. HEAD: Normocephalic. EYES: No scleral icterus. No injection or drainage. NECK: Supple, trachea midline. No JVD or lymphadenopathy. CARDIOVASCULAR: Regular rate and rhythm without murmurs, gallops, or rubs. RESPIRATORY: Breath sounds equal bilaterally. No accessory muscle use. GASTROINTESTINAL: Abdomen soft, non-tender, nondistended. MUSCULOSKELETAL: No cyanosis, or edema. BACK: Nontender without obvious deformity. No CVA tenderness. Procedures None A/P Problem List: (1) GI bleed ICD Code: K92.2 Status: Acute (2) Glioblastoma multiforme ICD Code: C71.9 Status: Acute (3) Pulmonary embolism ICD Code: I26.99 Status: Acute Assessment and Plan Ms. Bay is a 71-year-old female with a history of recently diagnosed glioblastoma multiforme, DVT and PE currently on Lovenox who presents to the emergency department due to rectal bleeding. Patient reports persistent rectal bleeding since September 19, 2016. She reports feeling fatigued. Hemoglobin 9.3 and 9.1 on admission. - Lower GI bleed - Patient has an IVC filter in place. Continue Lovenox 0.5mg/kg BID per Dr. Soto's recommendations. - Colorectal surgery following - no surgical intervention planned at this point. - Patient received 80 mg of Protonix. We'll continue Protonix 40 mg daily. - Will transfuse if Hgb < 7.0. Hemoglobin 9.4 today. - Discussed with patient's son and Dr. Toney ([facility]). Dr. Toney does not recommend colonoscopy at this point. - If further bleed occurs, Colonoscopy may be done on 11/01/2016. - Glioblastoma multiforme - Generalized weakness - Status post surgical resection. Continue Decadron 4 mg every 6 hours, Keppra 500 mg every 12 hours. - We will use Sliding scale insulin if blood glucose > 180. Last BS was 165. - PT consulted. Patient may benefit from Palliative care consult. - Will consider a hematology/oncology consult with Dr. Soto on . Discussed with Dr. Soto today. - Will place a radiation oncology consult for picking a date to start radiation. - History of Bilateral DVT - History of Pulmonary embolism - In patients with a diagnosis of cancer and DVT/PE, Lovenox is the treatment of choice. - Continue Lovenox 50 mg every 12 hours. If patient remains asymptomatic and no further bleeding, we may increase Lovenox to 0.7 on 0.8 mg per KG every 12 hours. - Possible discharge on 11/01/2016. DNR. IVC filter, Lovenox 0.5mg/kg Q12hrs. Omayra Ellis DO Oct 31, 2016 10:03 am
[2016-10-31 10:54] LABS: HEMATOCRIT 27.2 % (35.0-46.0); REVIEW FLAG FINAL
[2016-10-31 11:46] VITALS: BP 103/60; PULSE 55; RESP 18; TEMP 97.3; O2SAT 98
[2016-10-31] MEDS: ENOXAPARIN SODIUM 60 MG/0.6 ML SYRINGE SQ SCH (13:03)
--- NOTE | 2016-10-31 13:04 | HHI.PR ---
Subjective Remarks Anemia/ GI Bleed Some confusion overnight Comfortable, passing stool Objective Vital Signs Date Time Temp Pulse Resp B/P Pulse Ox O2 Delivery O2 Flow Rate FiO2 10/31/16 11:46 97.3 55 18 103/60 98 10/31/16 07:04 95.3 66 18 139/82 100 10/31/16 03:30 96.4 68 16 100/54 95 10/31/16 01:10 96.8 94 17 100/69 97 10/30/16 19:39 98.2 63 18 96/47 99 10/30/16 16:00 96.9 67 18 102/58 99 10/30/16 14:17 70 I/O 10/30/16 10/30/16 10/30/16 10/31/16 10/31/16 10/31/16 07:00 15:00 23:00 07:00 15:00 23:00 Intake Total 600 ml 360 ml 240 ml Balance 600 ml 360 ml 240 ml Intake Oral 600 ml 360 ml 240 ml # Voids 2 1 1 3 # Bowel Movements 0 1 1 0 Result Diagram: 10/31/16 1030 10/28/16 0430 Objective Remarks Abdomen benign Assessment and Plan Assessment and Plan Hgb stable Would watch for additional 24 hours Continue laxative Pauline Toney MD Oct 31, 2016 13:04
--- NOTE | 2016-10-31 13:52 | PD.CONS ---
Provisional Diagnosis Admission Date Oct 28, 2016 at 05:54 [place]ath[place] I. Adjustment disorder with depressed mood, delirium due to underlying medical condition Nathrop II. Deferred Nathrop III. Glioblastoma multiform, PE, GI bleeding Nathrop IV. Brain tumor Nathrop V. 55 History of Present Illness Service Psychiatry Consult Requested By Primary Care Physician No Primary Care Physician HPI The patient is a 71-year-old woman, domiciled alone in [place], single, retired, without any previous psychiatric history, no psychiatric hospitalizations, no previous suicidal attempts, with significant medical history of glioblastoma multiforme and pulmonary embolism currently on Lovenox who presented to the emergency department due to persistent lower GI bleed. Patient reports that since September 19, 2016 she has been having off and on lower GI bleed. She was recently admitted to the hospital for similar symptoms as well as fecal impaction. Colorectal surgery evaluated her during the last admission. Patient was discharged on 10/26/2016 and was continued on Lovenox. She was diagnosed with glioblastoma multiforme in September 2016 when she developed increasing confusion and hallucinations. Imaging studies indicated a mass in the right temporal area. She underwent resection on 09/28/2016. CT thorax on 09/25/2016 showed pulmonary embolism and subsequently patient underwent IVC umbrella filter placement prior to surgery. Patient has been presenting altered mental status, with on and off lucidity during this hospitalizations, this morning she cut herself with a knife in the left wrist because she felt that she is impersonated and she is not getting enough attention. Patient was consulted to psychiatry to assess potential suicidal ideation in her gesture. On psychiatric evaluation patient is calm, but just superficially cooperative, she seems to be confused, with poor reality lucidity. Her [id number] Crystal Forbes, who was sitting down in her side was used as a collateral information to complete psychiatric assessment. The patient was able to state that she has been frustrated, because she wants to go home. She says that her life has been very traumatic, but nothing feels like being in the hospital without attention and without clear communication of what is happening. Patient states that she did not wanted to commit suicide but she wanted everybody to no that she was overwhelmed and frustrated. At this moment she denies suicidal ideation, and she says that she is committed to continue her medical treatment, recommendations and get better, she says that she has hope that it will happen. She does endorse sadness, low appetite, low energy, problems sleeping at night, anxiety during the day, disrupted thoughts about the side effects of chemotherapy and radiotherapy. Patient is oriented in person time and place, she seems to understand the reason of her hospitalization , she can list her medical problems, understanding importance of her treatment and follow-up recommendation. Her [id number] adds that the patient has been entrapped in the system already twice. She says that the patient was 3 days in the ER without a clear communication of the reason of her hospitalization. She says that the patient is a very strict person who likes to be on control of herself stuffs. She does not think that the patient wanted to commit suicide, she thinks that the patient has been confused and very anxious. Patient denies the use of alcohol and drugs. Review of Systems Constitutional: DENIES: Diaphoretic episodes, Fatigue, Fever, Weight gain, Weight loss, Chills, Dizziness, Change in appetite, Night Sweats Endocrine: DENIES: Abnorml menstrual pattern, Heat/cold intolerance, Polydipsia , Polyuria, Polyphagia Eyes: DENIES: Blurred vision, Diplopia, Eye inflammation, Eye pain, Vision loss , Photosensitivity, Double Vision Ears, nose, mouth, throat: DENIES: Tinnitus, Hearing loss, Vertigo, Nasal discharge, Oral lesions, Throat pain, Hoarseness, Ear Pain, Running Nose, Epistaxis, Sinus Pain, Toothache, Odynophagia Respiratory: DENIES: Apneas, Cough, Snoring, Wheezing, Hemoptysis, Sputum production, Shortness of breath Cardiovascular: DENIES: Chest pain, Palpitations, Syncope, Dyspnea on Exertion , PND, Lower Extremity Edema, Orthopnea, Claudication Gastrointestinal: DENIES: Abdominal pain, Black stools, Bloody stools, Constipation, Diarrhea, Nausea, Vomiting, Difficulty Swallowing, Anorexia Musculoskeletal: DENIES: Joint pain, Muscle aches, Stiffness, Joint Swelling, Back pain, Neck pain Integumentary: DENIES: Abnormal pigmentation, Pruritus, Rash, Nail changes, Breast masses, Breast skin changes, Nipple discharge Hematologic/lymphatic: DENIES: Bruising, Lymphadenopathy Immunologic/allergic: DENIES: Eczema, Urticaria Neurologic: DENIES: Abnormal gait, Headache, Localized weakness, Paresthesias, Seizures, Speech Problems, Tremor, Poor Balance Psychiatric: DENIES: Anxiety, Confusion, Mood changes, Depression, Hallucinations, Agitation, Suicidal Ideation, Homicidal Ideation, Delusions Past Family Social History Coded Allergies: Codeine (Verified Allergy, Severe, nausea/vomiting/itching/sweating, ) Active Scripts Potassium Chloride ER 20 Meq Tab20 Meq PO DAILY #30 TAB Ref 0 Prov:Ashtyn Yuen MD 10/26/16 Omeprazole 40 Mg Cap40 Mg PO DAILY #30 CAP Ref 0 Prov:Ashtyn Yuen MD 10/26/16 Hydrocodone-Acetaminophen 10-325 mg Tab1 Tab PO Q4HR #20 TAB Prov:Ashtyn Yuen MD 10/26/16 Sennosides-Docusate Sodium (Senna Plus 8.6-50 mg)1 Tab Tab1 Tab PO BID #60 TAB Prov:Kaushik Arce MD 10/14/16 Levetiracetam (Keppra)500 Mg Xwa236 Mg PO Q12HR #60 TAB Prov:Kaushik Arce MD 10/14/16 Furosemide 20 Mg Tab20 Mg PO BID@,18 #60 TAB Prov:Kaushik Arce MD 10/14/16 Enoxaparin Inj (Lovenox Inj)80 mg/0.8 ML Syr80 Mg SQ Q12H #60 INJECTION Prov:Kaushik Arce MD 10/14/16 Dexamethasone 4 Mg Tab4 Mg PO Q6HR #120 TAB Prov:Kaushik Arce MD 10/14/16 Carvedilol (Coreg)6.25 Mg Tab6.25 Mg PO Q12HR #60 TAB Prov:Kaushik Arce MD 10/14/16 Discontinued Reported Medications Omeprazole 20 Mg Tab20 Mg PO DAILY #30 TAB Ref 0 10/24/16 Discontinued Scripts Levofloxacin (Levaquin)750 Mg Mlv213 Mg PO DAILY #6 TAB Ref 0 Prov:Ashtyn Yuen MD 10/26/16 Hydrocodone-Acetaminophen 10-325 mg Tab1 Tab PO Q4HR #20 TAB Prov:Kaushik Arce MD 10/14/16 Pantoprazole 40 Mg Tab40 Mg PO DAILY #30 TAB Prov:Kaushik Arce MD 10/14/16 Current Medications Medications (Trade) Dose Ordered Sig/Hardeep Route Start Time Stop Time Status Last Admin (NS Flush) 2 ml UNSCH PRN IV FLUSH 10/28/16 06:00 (NS Flush) 2 ml BID IV FLUSH 10/28/16 09:00 10/31/16 08:41 (Zofran Inj) 4 mg Q6H PRN IVP 10/28/16 06:00 (Narcan Inj) 0.4 mg UNSCH PRN IV 10/28/16 06:00 (Coreg) 6.25 mg Q12HR PO 10/28/16 21:00 10/31/16 08:39 (Decadron) 4 mg Q6HR PO 10/28/16 12:00 10/31/16 13:06 (Keppra) 500 mg Q12HR PO 10/28/16 21:00 10/31/16 08:40 (KCl) 20 meq DAILY PO 10/29/16 09:00 10/31/16 08:39 (Yocasta-Colace) 1 tab BID PO 10/28/16 21:00 10/30/16 09:30 (Tylenol) 500 mg Q6HR PRN PO 10/28/16 12:00 ([place] 7.5-325 Mg) 1 tab Q6H PRN PO 10/28/16 12:00 (Protonix) 40 mg DAILY PO 10/29/16 09:00 10/31/16 08:41 (Miralax) 17 gm DAILY PO 10/28/16 16:00 10/28/16 16:55 (Lovenox Inj) 50 mg Q12H SQ 10/29/16 12:00 10/31/16 13:03 Family History She denies Social History Patient was born and raised in [place], she lives alone in [place], she is single, she has 3 kids, she is supported by Social Security, her highest level of education is 12th grade. Physical Exam Vital Signs Vital Signs Date Time Temp Pulse Resp B/P Pulse Ox O2 Delivery O2 Flow Rate FiO2 10/31/16 11:46 97.3 55 18 103/60 98 10/28/16 11:08 Room Air I/O 10/30/16 10/30/16 10/31/16 08:00 16:00 00:00 Intake Total 600 ml 360 ml Balance 600 ml 360 ml Mental Status Examination Appearance woman, good hygiene, [facility], irritable, superficially cooperative, Speech: Hesitant, Slow Orientation: x3 Memory: Unremarkable Thought Process: Logical Thought Content: Unremarkable Hallucination Type: None Attention and Concentration: Good Suicidal Ideation: No Previous Suicide Attempts: No Homicidal Ideation: No Judgement: Poor Affect: Irritable Mood: Angry Motor Activity: Normal gait Assessment & Plan Problem List: (1) Adjustment disorder with depressed mood Assessment & Plan: The patient is a 71-year-old woman, domiciled alone in [place], single, retired, without any previous psychiatric history , no psychiatric hospitalizations, no previous suicidal attempts, with significant medical history of glioblastoma multiforme and pulmonary embolism currently on Lovenox who was admitted to the hospital after she came to the emergency department with persistent lower GI bleed. Patient consulted to psychiatry due to suicidal gesture of cutting her left wrist with a plastic knife. On psychiatric evaluation patient reports frustration, anger of being admitted in the hospital with a very poor communication with medical staff and having the sensation that she is incarcerated. She reports sadness, poor appetite, helpless, low level of energy, but denies suicidal and homicidal ideation, denies hopelessness, denies worthlessness. Patient denies visual and auditory hallucination at this moment. Patient is oriented 3, both with visible periodic confusion. At this moment the patient does not meet criteria for psychiatric admission. She will be started and Seroquel 50 mg at bedtime to help with insomnia and also with behavioral control. Continue sitter for at least 24 hour for patient's safety. Extensive support, psycho education motivation provided, we'll continue follow-up. ICD Code: F43.21 Assessment & Plan Estimated LOS: Charlie Valerio MD Oct 31, 2016 13:52
[2016-10-31 15:27] VITALS: BP 107/71; PULSE 63; RESP 16; TEMP 96.4; O2SAT 97
[2016-10-31 20:10] VITALS: BP 108/64; PULSE 68; RESP 17; TEMP 97.4; O2SAT 96
[2016-10-31] MEDS ORDERED: QUEtiapine FUMARATE 25 MG TAB PO SCH (21:00)
[2016-10-31] MEDS: DOCUSATE SODIUM 50 MG/SENNA 8.6 MG TAB PO SCH (21:05)
[2016-11-01] VITALS: BP 100/58; PULSE 63; RESP 16; TEMP 97.8; O2SAT 98
[2016-11-01] MEDS: ENOXAPARIN SODIUM 60 MG/0.6 ML SYRINGE SQ SCH ×2 (00:18→12:51)
[2016-11-01] MEDS: DEXAMETHASONE 4 MG TAB PO SCH ×3 (00:18→12:51)
[2016-11-01 06:11] LABS: REVIEW FLAG FINAL
[2016-11-01 08:00] VITALS: BP 124/78; PULSE 63; RESP 20; TEMP 97; O2SAT 97
[2016-11-01] MEDS: SODIUM CHLORIDE 0.9% FLUSH 10 ML FLUSH IV FLUSH SCH (09:00)
[2016-11-01] MEDS: POLYETHYLENE GLYCOL 17 GM PKG PO SCH (09:00)
[2016-11-01] MEDS: PANTOPRAZOLE SOD 40 MG DELAYED RELEASE TAB PO SCH (10:35)
[2016-11-01] MEDS: CARVEDILOL 6.25 MG TAB PO SCH (10:35)
[2016-11-01] MEDS: DOCUSATE SODIUM 50 MG/SENNA 8.6 MG TAB PO SCH (10:35)
[2016-11-01] MEDS: levETIRAcetam 500 MG TAB PO SCH (10:36)
[2016-11-01] MEDS: POTASSIUM CHLORIDE 20 MEQ CONTROLLED RELEASE TAB PO SCH (10:36)
[2016-11-01 12:03] VITALS: BP 107/71; PULSE 72; RESP 16; TEMP 97.2; O2SAT 97
[2016-11-01] MEDS ORDERED: VENLAFAXINE HCL XR 37.5 MG CAP PO SCH (13:00)
--- NOTE | 2016-11-01 13:00 | HHI.PYPN ---
Subjective Remarks Patient was seen today for psychiatric reevaluation, she was in her bed sitting quietly, she is states that today she feels a little better than yesterday, however confused about her medical situation, feeling entrapped in the vicious chicle, patient says that her motivation is very low, that she feels very empty , pessimistic about her future. She reports better sleep last night, she denies suicidal or homicidal ideation, she denies visual and auditory hallucinations. When she was confronted about her suicidal attempt yesterday she says that she is not sure what she wanted "most probably was just a called for attention and a cry for help". Patient is fully oriented 3, however at times she seems to be confused and distant. No agitation or aggressive behavior reported. Review of Systems Other No significant changes since 10/31/2016 Objective Alert: Yes [place]: Person, Place, Date Mood: Depressed Affect: Other (dysthymic) Memory Intact: Immediate, Recent, Remote Hallucinations: Other (she denies) Delusions: No Delusion Type: Other (none) Suicidal: Ideation (she reports suicidal thoughts, no plan) Homicidal: Ideation (she denies) Insight/Judgement poor Labs Test 11/01/16 05:20 Hemoglobin 9.7 GM/DL Hematocrit 28.0 % Vitals/IOs Vital Signs Date Time Temp Pulse Resp B/P Pulse Ox O2 Delivery O2 Flow Rate FiO2 11/01/16 12:03 97.2 72 16 107/71 97 10/28/16 11:08 Room Air Intake and Output 10/31/16 10/31/16 11/01/16 08:00 16:00 00:00 Intake Total 240 ml 660 ml 120 ml Balance 240 ml 660 ml 120 ml Assessment & Plan Problem List: (1) Major depressive disorder, single episode Assessment & Plan: On psychiatric evaluation today the patient presents objectively depressed, very distant, with marked psychomotor retardation, melancholic affect, poor sleep, endorsing generalized pessimism and lack of motivation, ambivalent about suicidal ideation, no plan. Patient just today made a suicidal gesture by cutting her left wrist with a plastic knife. Patient will benefit of psychiatric admission for stabilization. Will start Effexor 37.5 mg for depression, we'll continue Seroquel 25 mg to help with sleep and mood stabilization. Extensive support, psycho educational motivation provided. ICD Code: F32.9 Assessment & Plan Estimated LOS: days Justification for Cont. Inpt. Patient will be transferred to med/psych unit due to acute symptomatology of depression and recent suicidal attempt and to continue psychiatric stabilization Charlie Elizabeth MD Nov 01, 2016 13:00
[2016-11-01] MEDS ORDERED: Venlafaxine Xr PO (13:52)
[2016-11-01] MEDS ORDERED: ENOX60P SQ (13:52)
[2016-11-01] MEDS ORDERED: QUET1TAB7 PO (13:52)
--- NOTE | 2016-11-01 13:56 | HHI.DS ---
Discharge Summary Admission Date Oct 28, 2016 at 5:54 am Discharge Date: Nov 01, 2016 Admitting Diagnosis rectal bleeding, patient on Lovenox for pulmonary emboli (1) GI bleed ICD Code: K92.2 Diagnosis: Principal (2) Glioblastoma multiforme ICD Code: C71.9 (3) Pulmonary embolism ICD Code: I26.99 Procedures None Brief History - From Admission Ms. Bay is a 71-year-old female with a history of glioblastoma multiforme and, pulmonary embolism currently on Lovenox who presented to the emergency department due to persistent lower GI bleed. Patient reports that since September 19, 2016 she has been having off and on lower GI bleed. She usually feels fatigued. She was recently admitted to the hospital for similar symptoms as well as fecal impaction. Colorectal surgery evaluated her during the last admission. Patient was discharged on 10/26/2016 and was continued on Lovenox. Patient has an IVC filter. Currently patient reports feeling very tired. Denies any chest pain, shortness of breath, fever or chills. Her hemoglobin on admission was 9.3 and repeat hemoglobin 9.1. No blood transportation has been administered. Denies any changes in bladder habits. Mr. Bay was diagnosed with glioblastoma multiforme in September 2016 when she developed increasing confusion and hallucination. Imaging studies indicated a mass in the right temporal area. She underwent resection on 09/28/2016. CT thorax on 09/25/2016 showed pulmonary embolism and subsequently patient underwent IVC umbrella filter placement prior to surgery. She was receiving low -dose Lovenox following surgery but unfortunately patient developed new venous thrombosis. On 10/11/2016 she was found to have extensive occlusive thrombus within the femoral popliteal, peroneal and posterior tibial as well as greater saphenous veins of the left lower extremity. Her Lovenox was increased to 80 mg every 12 hours. CBC/BMP: 11/01/16 0520 10/28/16 0430 Significant Findings Laboratory Tests Test 10/29/16 10/30/16 10/31/16 11/01/16 20:37 09:00 10:30 05:20 Hemoglobin 9.2 GM/DL 9.3 GM/DL 9.4 GM/DL 9.7 GM/DL (11.6-15.3) (11.6-15.3) (11.6-15.3) (11.6-15.3) Hematocrit 27.5 % 27.2 % 28.0 % (35.0-46.0) (35.0-46.0) (35.0-46.0) Imaging Last Impressions Chest X-Ray 10/28/16 5984 Signed Impressions: Service Date/Time: Monday, October 28, 2016 05:44 - CONCLUSION: Normal examination. Flynn Canales Jr., MD PE at Discharge GENERAL: Alert, NAD. SKIN: Warm and dry. HEAD: Normocephalic. EYES: No scleral icterus. No injection or drainage. NECK: Supple, trachea midline. No JVD or lymphadenopathy. CARDIOVASCULAR: Regular rate and rhythm without murmurs, gallops, or rubs. RESPIRATORY: Breath sounds equal bilaterally. No accessory muscle use. GASTROINTESTINAL: Abdomen soft, non-tender, nondistended. MUSCULOSKELETAL: No cyanosis, or edema. BACK: Nontender without obvious deformity. No CVA tenderness. Pt update on day of discharge Patient does not talk much. No acute concerns. Wants to go home. Psychiatry recommended psych-med floor admission. Hospital Course Ms. Bay is a 71-year-old female with a history of recently diagnosed glioblastoma multiforme, DVT and PE currently on Lovenox who presents to the emergency department due to rectal bleeding. Patient reports persistent rectal bleeding since September 19, 2016. She reports feeling fatigued. Hemoglobin 9.3 and 9.1 on admission. - Lower GI bleed - Patient has an IVC filter in place. Continue Lovenox 0.5mg/kg BID per Dr. Soto's recommendations. - Colorectal surgery following - no surgical intervention planned at this point. - Patient received 80 mg of Protonix. We'll continue Protonix 40 mg daily. - Will transfuse if Hgb < 7.0. Hemoglobin 9.4 - Discussed with patient's son and Dr. Toney ([facility]). Dr. Toney does not recommend colonoscopy at this point. - Glioblastoma multiforme - Generalized weakness - Status post surgical resection. Continue Decadron 4 mg every 6 hours, Keppra 500 mg every 12 hours. - We will use Sliding scale insulin if blood glucose > 180. Last BS was 165. - PT consulted. Patient may benefit from Palliative care consult. - Radiation/chemo per Oncology and radiation oncology in the outpatient setting. - History of Bilateral DVT - History of Pulmonary embolism - In patients with a diagnosis of cancer and DVT/PE, Lovenox is the treatment of choice. - Continue Lovenox 50 mg every 12 hours. May increase to 0.7 or 0.8mg/kg Q12hrs if no further GI bleed. - If there is question, Dr. Soto can be consulted - please contact Dr. Soto directly if a consult is placed. DNR. IVC filter, Lovenox 0.5mg/kg Q12hrs. Pt Condition on Discharge: Good Discharge Disposition: Disc to [facility] Discharge Time: > 30 minutes Discharge Instructions DIET: Follow Instructions for: As Tolerated, No Restrictions Activities you can perform: Regular-No Restrictions Follow up Referrals: Oncology - 1 Week with Kenroy Soto MD New Medications: Enoxaparin Inj (Lovenox Inj) 60 Mg/0.6 Ml Syr 50 MG SQ Q12H Blood Clot Prevention Days 30 INJECTION Quetiapine (Quetiapine) 25 Mg Tab 25 MG PO HS Anxiety and/or Insomnia #30 TAB ([Venlafaxine Xr]) 37.5 MG CAPER 37.5 MG PO DAILY depression #30 CAP.SR Continued Medications: Carvedilol (Coreg) 6.25 Mg Tab 6.25 MG PO Q12HR Blood Pressure Management #60 TAB Dexamethasone (Dexamethasone) 4 Mg Tab 4 MG PO Q6HR Control Inflammation #120 TAB Furosemide (Furosemide) 20 Mg Tab 20 MG PO BID@09,18 edema #60 TAB Hydrocodone-Acetaminophen (Hydrocodone-Acetaminophen) 10-325 mg Tab 1 TAB PO Q4HR PAIN SCALE 6 TO 10 #20 TAB Levetiracetam (Keppra) 500 Mg Tab 500 MG PO Q12HR Control Seizures #60 TAB Omeprazole (Omeprazole) 40 Mg Cap 40 MG PO DAILY GERD #30 Ref 0 CAP Potassium Chloride ER (Potassium Chloride ER) 20 Meq Tab 20 MEQ PO DAILY Electrolyte Replacement #30 Ref 0 TAB Sennosides-Docusate Sodium (Senna Plus 8.6-50 mg) 1 Tab Tab 1 TAB PO BID Constipation #60 TAB Discontinued Medications: Enoxaparin Inj (Lovenox Inj) 80 mg/0.8 ML Syr 80 MG SQ Q12H Prevent Blood Clot #60 INJECTION Omayra Ellis DO Nov 01, 2016 13:56
== END 2016-11-01 14:55 ==
LOC: NEPC 03:48 → NEDA 05:54 → NEDH 09:40 → NEPFCDU 12:27 → N06B 10-29 20:06
PROVIDERS: ADMIT Hospitalist; ATTEND Hospitalist
DX: K92.2 Gastrointestinal hemorrhage, unspecified (principal); R53.1 Weakness; I48.91 Unspecified atrial fibrillation; F20.9 Schizophrenia, unspecified; M19.90 Unspecified osteoarthritis, unspecified site; J45.909 Unspecified asthma, uncomplicated; F41.9 Anxiety disorder, unspecified; E78.00 Pure hypercholesterolemia, unspecified; I11.0 Hypertensive heart disease with heart failure; I50.9 Heart failure, unspecified; E11.9 Type 2 diabetes mellitus without complications; K21.9 Gastro-esophageal reflux disease without esophagitis; I42.9 Cardiomyopathy, unspecified; F43.21 Adjustment disorder with depressed mood; Z79.01 Long term (current) use of anticoagulants; Z86.718 Personal history of other venous thrombosis and embolism; Z86.711 Personal history of pulmonary embolism; Z88.5 Allergy status to narcotic agent; Z66 Do not resuscitate; Z86.73 Personal history of transient ischemic attack (TIA), and cerebral infarction without residual deficits
CPT/HCPCS: 71020; 80053; 83690; 83880; 85007; 85014; 85018; 85027; 85610; 85730; 86850; 86900; 86901; 86920; 93005; 96365; 97110; 97116; 97162; 99285; C9113; G0378; J1650; J7030; J8540

== ENCOUNTER 2016-11-01 15:00 | Inpatient (IN) | payer OTHER, MEDICARE ==
[~2016-11-01 15:00] MED LIST changes: +ENOX60P SQ; -LEVA750T PO; +QUET1TAB7 PO; +Venlafaxine Xr PO
[2016-11-01] MEDS ORDERED: ACETAMINOPHEN 325 MG TAB PO PRN (16:15)
[2016-11-01] MEDS ORDERED: ALUMINUM/MAGNESIUM/SIMETH 30 ML CUP PO PRN (16:15)
[2016-11-01] MEDS ORDERED: MAGNESIUM HYDROXIDE SUSP 30 ML CUP PO PRN (16:15)
[2016-11-01] MEDS: DEXAMETHASONE 4 MG TAB PO SCH ×2 (18:00→23:56)
[2016-11-01 19:32] VITALS: BP 114/68; PULSE 57; RESP 18; TEMP 97.8; O2SAT 99
[2016-11-01] MEDS: levETIRAcetam 500 MG TAB PO SCH (21:59)
[2016-11-01] MEDS: CARVEDILOL 6.25 MG TAB PO SCH (21:59)
[2016-11-01] MEDS: QUEtiapine FUMARATE 25 MG TAB PO SCH (21:59)
[2016-11-02 00:27] VITALS: BP 106/68; PULSE 67; RESP 18; TEMP 97.7; O2SAT 97
[2016-11-02] MEDS: DEXAMETHASONE 4 MG TAB PO SCH ×4 (05:32→23:34)
[2016-11-02 05:47] VITALS: BP 119/65; PULSE 75; RESP 16; TEMP 97.1; O2SAT 98
[2016-11-02 07:07] LABS: ANION GAP 9 MEQ/L (5-15); BICARBONATE 23.4 MEQ/L (21.0-32.0); BLOOD UREA NITROGEN 16 MG/DL (7-18); CHLORIDE 106 MEQ/L (98-107); GLOMERULAR FILTRATION RATE 121 ML/MIN (>89); POTASSIUM 3.9 MEQ/L (3.5-5.1); SODIUM (NA) 138 MEQ/L (136-145)
[2016-11-02 07:09] LABS: HDL CHOLESTEROL 36.4 MG/DL (40.0-60.0); LDL CHOLESTEROL 202 MG/DL (0-99)
[2016-11-02] MEDS ORDERED: VENLAFAXINE HCL XR 37.5 MG CAP PO SCH (09:00)
[2016-11-02] MEDS: levETIRAcetam 500 MG TAB PO SCH ×2 (09:00→20:34)
[2016-11-02] MEDS: CARVEDILOL 6.25 MG TAB PO SCH ×2 (09:00→20:35)
--- NOTE | 2016-11-02 14:10 | PD.CONS ---
[facility] team Reason for Consult Medical management Primary Care Physician Unknown Diagnoses: History of Present Illness Patient is a 71 year old female with primary medical history of glioblastoma multiforme, pulmonary embolism currently on Lovenox who came into the hospital secondary to persistent lower GI bleed. As per records review, she was diagnosed with glioblastoma multiforme in September 2016 she developed increasing confusion and hallucination. Imaging studies indicated a mass in the right temporal area. She underwent resection on 09/28/2016. CT thorax on showed pulmonary embolism and subsequently patient underwent IVC umbrella filter placement prior to surgery. She was receiving low-dose Lovenox following surgery but unfortunately patient developed new venous thrombosis. On 10/11/2016 she was found to have extensive occlusive thrombus within the femoral popliteal, peroneal and posterior tibial as well as greater saphenous veins of the left lower extremity. Her Lovenox was increased to 80 mg every 12 hours. She was discharged home with Lovenox. On the course of her hospitalization Lovenox was held her hemoglobin has been stable. However prior to discharge to a rehabilitation center, patient attempted to hurt herself by cutting her left forearm with plastic fork. Patient is now admitted to medical psych unit. Consulted for medical management. Patient seen today. Reports she is trying to get some rest. Denies SI/HI. Reports continued to be feeling low and depressed. Otherwise, denies pain and discomfort. Denies SOB/ dyspnea. Denies chestpain, palpitations, headaches, dizziness. Denies fevers, chills, n/v/d. Review of Systems Except as stated in HPI: all other systems reviewed are Neg Past Family Social History Allergies: Coded Allergies: Codeine (Verified Allergy, Severe, nausea/vomiting/itching/sweating, ) Past Medical History DVT, PE, prior GI bleed, glioblastoma multiforme Past Surgical History Hysterectomy, stereotactic image guided right temporal craniotomy with resection of glioblastoma multiforme Reported Medications Potassium Chloride ER (Potassium Chloride) 20 Meq Tab 20 Meq PO DAILY Omeprazole 40 Mg Cap 40 Mg PO DAILY Hydrocodone-Acetaminophen 10-325 mg Tab 1 Tab PO Q4HR Senna Plus 8.6-50 mg (Sennosides-Docusate Sodium) 1 Tab Tab 1 Tab PO BID Keppra (Levetiracetam) 500 Mg Tab 500 Mg PO Q12HR Furosemide 20 Mg Tab 20 Mg PO BID@18 Lovenox Inj (Enoxaparin Sodium) 80 mg/0.8 ML Syr 80 Mg SQ Q12H Dexamethasone 4 Mg Tab 4 Mg PO Q6HR Coreg (Carvedilol) 6.25 Mg Tab 6.25 Mg PO Q12HR Active Ordered Medications Current Medications Medications (Trade) Dose Ordered Sig/Hardeep Route Start Time Stop Time Status Last Admin (Tylenol) 650 mg Q4H PRN PO 11/01/16 16:15 (Milk Of Magnesia Liq) 30 ml DAILY PRN PO 11/01/16 16:15 (Mag-Al Plus Susp Liq) 30 ml Q6H PRN PO 11/01/16 16:15 (SEROquel) 50 mg HS PO 11/01/16 21:00 11/01/16 21:59 (Effexor Xr) 37.5 mg DAILY PO 11/02/16 09:00 11/02/16 09:00 (Keppra) 500 mg Q12HR PO 11/01/16 21:00 11/02/16 09:00 (Coreg) 6.25 mg Q12HR PO 11/01/16 21:00 11/02/16 09:00 (Decadron) 4 mg Q6HR PO 11/01/16 18:00 11/02/16 12:00 Family History Father had cancer and mother had diabetes mellitus Social History Patient denies using tobacco, alcohol, illicit drugs. Physical Exam Vital Signs Vital Signs Date Time Temp Pulse Resp B/P Pulse Ox O2 Delivery O2 Flow Rate FiO2 11/02/16 05:47 97.1 75 16 119/65 98 11/02/16 00:27 97.7 67 18 106/68 97 11/01/16 19:32 97.8 57 18 114/68 99 Physical Exam GENERAL: This is a well-nourished, well-developed patient, in no apparent distress. SKIN: No rashes, ecchymoses or lesions. Cool and dry. HEAD: Atraumatic. Normocephalic. No temporal or scalp tenderness. EYES: Pupils equal round and reactive. Extraocular motions intact. No scleral icterus. No injection or drainage. ENT: Nose without bleeding, purulent drainage or septal hematoma. Throat without erythema, tonsillar hypertrophy or exudate. Uvula midline. Airway patent. NECK: Trachea midline. No JVD or lymphadenopathy. Supple, nontender, no meningeal signs. CARDIOVASCULAR: Regular rate and rhythm without murmurs, gallops, or rubs. RESPIRATORY: Clear to auscultation. Breath sounds equal bilaterally. No wheezes , rales, or rhonchi. GASTROINTESTINAL: Abdomen soft, non-tender, nondistended. No hepato-splenomegaly , or palpable masses. No guarding. MUSCULOSKELETAL: Extremities without clubbing, cyanosis, or edema. No joint tenderness, effusion, or edema noted. No calf tenderness. Negative Homans sign bilaterally. NEUROLOGICAL: Awake and alert. Cranial nerves II through XII intact. Motor and sensory grossly within normal limits. Five out of 5 muscle strength in all muscle groups. Normal speech. Laboratory Laboratory Tests Test 11/02/16 06:22 Sodium Level 138 Potassium Level 3.9 Chloride Level 106 Carbon Dioxide Level 23.4 Anion Gap 9 Blood Urea Nitrogen 16 Creatinine 0.50 Estimat Glomerular Filtration 121 Rate Random Glucose 118 Calcium Level 8.5 Triglycerides Level 284 Cholesterol Level 295 LDL Cholesterol 202 HDL Cholesterol 36.4 Cholesterol/HDL Ratio 8.10 Result Diagram: 11/02/16621 Assessment and Plan Problem List: (1) Glioblastoma multiforme ICD Code: C71.9 Status: Acute (2) Adjustment disorder with depressed mood ICD Code: F43.21 Status: Acute (3) GI bleed ICD Code: K92.2 Status: Acute (4) Pulmonary embolism ICD Code: I26.99 Status: Acute (5) Anemia ICD Code: D64.9 Status: Acute (6) Major depressive disorder, single episode ICD Code: F32.9 Status: Acute Assessment and Plan Patient is a 71 year old female with primary medical history of glioblastoma multiforme, pulmonary embolism currently on Lovenox who came into the hospital secondary to persistent lower GI bleed. As per records review, she was diagnosed with glioblastoma multiforme in September 2016 she developed increasing confusion and hallucination. Imaging studies indicated a mass in the right temporal area. She underwent resection on 09/28/2016. CT thorax on showed pulmonary embolism and subsequently patient underwent IVC umbrella filter placement prior to surgery. She was receiving low-dose Lovenox following surgery but unfortunately patient developed new venous thrombosis. On 10/11/2016 she was found to have extensive occlusive thrombus within the femoral popliteal, peroneal and posterior tibial as well as greater saphenous veins of the left lower extremity. Her Lovenox was increased to 80 mg every 12 hours. She was discharged home with Lovenox. On the course of her hospitalization Lovenox was held her hemoglobin has been stable. However prior to discharge to a rehabilitation center, patient attempted to hurt herself by cutting her left forearm with plastic fork. Patient is now admitted to medical psych unit. Consulted for medical management. - Suicidal ideation, depression - managed by psychiatry team - Lower GI bleed - Patient has an IVC filter in place. - Colorectal surgery no surgical recommendation. Colonoscopy not recommended at this point. Patient is to follow-up with colorectal surgeon as an outpatient. - Protonix 40 mg daily. - Will transfuse if Hgb < 7.0. - Monitor H&H. H&H stable. - Glioblastoma multiforme - Status post surgical resection. Continue Decadron 4 mg every 6 hours, Keppra 500 mg every 12 hours. - Needs to follow-up with Dr. Soto, recommended for radiation oncology to start radiation - History of Bilateral DVT - History of Pulmonary embolism -Patient is diagnosed with cancer, DVT, PE, Lovenox discussed the treatment of choice. Patient's Lovenox has previously been held secondary to GI bleed. However during hospitalization patient's H&H has been stable. She has been followed by colorectal surgeon did not recommend any further surgical treatments. Patient has been restarted on her Lovenox inpatient. - Lovenox 0.5 mg/kg every 12 hours. Will increase dose to 0.7 or 0.8 mg/kg every 12 hours if H&H continues to remain stable. Case management - consult for placement if cleared by psychiatry DVT prop IVC filter, Lovenox 0.5 mg/kg every 12 hours Written by Kassandra Roy, acting as scribe for Dr. Sy on 11/02/16 at 15: 43. All or portions of this note were transcribed by scribe [Kassandra Roy]. I, Dr. Delma Sy personally performed the history, physical exam, and medical decision making; and confirmed the accuracy of the information in the transcribed note. Authenticated by Dr. Delma Sy on 11/02/16 at 1615. Code Status Full code Discussed Condition With Patient, nursing Kassandra Schaffer Nov 02, 2016 14:10 Delma Sy MD Nov 02, 2016 20:53
--- NOTE | 2016-11-02 15:08 | PD.CONS ---
Consult Service Palliative Care Consult Requested By Dr. Glenn MD. Primary Care Physician Unknown Reason for Consultation a. To assist with evaluation and management of symptoms including: Debility and confusion. b. To assist medical decision maker(s) with: better understanding of current medical conditions; weighing benefits/burdens of medical treatment options; making medical treatment decisions. . HPI History of Present Illness Mrs. Bay is a 71-year-old female with a medical history significant for glioblastoma multiform, grade 4, status post subtotal guided craniotomy for resection on 10/05/16. Medical history to include recent pulmonary emboli with IVC placement. Patient on low-dose Lovenox after surgery with the development continue venous thrombosis requiring increase in dose. Patient was discharge to call to ensure rehabilitation on October 14, 2016 developing complications to include rectal bleed and constipation requiring disimpact dictation under sedation with colorectal during hospitalization from October 24 October 26, 2016. Patient returned to [facility] for continuation of rehabilitation, however on 10/28/16 return to the emergency room secondary to lower GI bleed. Upon ED presentation, hemoglobin 9.3 which was unchanged from discharge 2 days prior. Chest x-ray showing no acute process. Patient was admitted for further observation. GI was consulted on 10/28/16 for evaluation of rectal bleeding. On 10/03/16 psychiatry -Dr. Elizabeth was consulted to assess for potential suicidal ideation/attempt after patient attempted to cut herself with a knife in the left wrist. Patient was diagnosed with adjustment disorder with depressed mood , delirium due to underlying medical condition. At that time she was found to have poor judgment with no suicidal ideation. She was started on Seroquel at bedtime to help with insomnia and behavioral control. The following day on the , patient was transferred to the psychiatric floor for stabilization due to acute depression and recent suicidal attempt. Patient was placed on Effexor 37.5 mg and Seroquel 25 mg continued. Hemoglobin continue stable at 9.7 with no signs of acute bleed. Patient is afebrile, stable blood pressure. Tolerating room air with oxygen saturation in the high 90s. No new laboratory or imaging available. Reviewed prior medical records and hospitalizations. Patient known to palliative care team during prior hospitalization from 09/23/16 to 10/14/16. At that time, goals of care were to discharge to rehabilitation for physical strengthening and start radiation and chemotherapy. Patient was originally seen by radiation oncology -Dr. Wick on 09/30/16. Follow-up visit on . It appears that patient was not receptive to starting radiation treatment. Patient was seen in psychiatric floor, she was laying in her bed in no acute distress. She is awake, alert to self, place and situation. Intermittent confusion but easily reoriented. Patient endorsing abdominal pain that feels like gas pain/indigestion. She reports passing a lot of gas. Denies nausea/ vomiting or diarrhea. Denies shortness of breath or chest pain. Patient tells me that the reason why she is hospitalized is secondary to hallucinations and panic attacks. She also tells me that she was moved from a different floor because she hurt herself as she was feeling frustrated and wanted attention. She tells me that she wants to go home and is hoping to get medical treatment for her brain cancer. Telephone conversation with healthcare surrogate Crystal Romo. Medical update provided. Judith tells me that she is very upset for events leading to transfer to psychiatric floor. She feels that patient is confused and that's why she acted upon her frustration. She tells me that the reason why radiation was not started secondary to medical complications, GI bleed and not because of refusal. Judith reports that goals of care remains unchanged from previous hospitalization to include discharge to rehabilitation for physical straightening and start with radiation and chemotherapy. Reviewed CODE STATUS given patient's diagnosis of glioblastoma, recent complications, and age. Judith tells me that patient is to continue full CODE STATUS. Judith in agreement to meet with palliative care for further clarifications of goals of care tomorrow 11/03/16 at 4 PM. Case was discussed with Dr. Wiggins and Dr. Leon with palliative care. . Function/Cognitive Trajectory Patient independent with all ADLs prior to 09/23/16. Intermittently using cane/ walker but able to do ADLs independently. She was driving, grocery shopping and functioning without much assistance. Patient was discharged to rehabilitation facility on 10/14/16 status post craniotomy for resection of glioblastoma. Patient is currently requiring some assistance with ADLs. Intermittent confusion. . Review of Systems ROS Limitations: Poor Historian Constitutional: COMPLAINS OF: Change in appetite, DENIES: Fatigue Endocrine: DENIES: Heat/cold intolerance Eyes: DENIES: Eye pain Ears, nose, mouth, throat: DENIES: Hearing loss, Nasal discharge Respiratory: DENIES: Apneas, Shortness of breath Cardiovascular: DENIES: Chest pain, Dyspnea on Exertion, Lower Extremity Edema Gastrointestinal: COMPLAINS OF: Abdominal pain, Constipation, DENIES: Nausea, Vomiting Genitourinary: DENIES: Urinary frequency Musculoskeletal: DENIES: Back pain Integumentary: DENIES: Abnormal pigmentation Hematologic/Lymphatics: DENIES: Bruising Immunologic/Allergic: DENIES: Eczema Neurologic: DENIES: Abnormal gait Psychiatric: COMPLAINS OF: Confusion, Mood changes, Depression, Hallucinations Past Family Social History Coded Allergies: Codeine (Verified Allergy, Severe, nausea/vomiting/itching/sweating, ) Past Medical History Glioblastoma s/p stereotactic guided craniotomy for resection in October 05, 2016 Bilateral DVTs, status post IVC filter on 09/27/16 History COPD Hypertension Cardiomyopathy Atrial fibrillation History of GI bleed Constipation . Past Surgical History Stereotactic guided craniotomy for resection of glioblastoma in October 05, 2016 IVC filter on 09/27/16 Hysterectomy Facelift . Reported Medications Potassium Chloride ER (Potassium Chloride) 20 Meq Tab 20 Meq PO DAILY Omeprazole 40 Mg Cap 40 Mg PO DAILY Hydrocodone-Acetaminophen 10-325 mg Tab 1 Tab PO Q4HR Senna Plus 8.6-50 mg (Sennosides-Docusate Sodium) 1 Tab Tab 1 Tab PO BID Keppra (Levetiracetam) 500 Mg Tab 500 Mg PO Q12HR Furosemide 20 Mg Tab 20 Mg PO BID@,18 Lovenox Inj (Enoxaparin Sodium) 80 mg/0.8 ML Syr 80 Mg SQ Q12H Dexamethasone 4 Mg Tab 4 Mg PO Q6HR Coreg (Carvedilol) 6.25 Mg Tab 6.25 Mg PO Q12HR . Current Medications Medications (Trade) Dose Ordered Sig/Hardeep Route Start Time Stop Time Status Last Admin (Tylenol) 650 mg Q4H PRN PO 11/01/16 16:15 (Milk Of Magnesia Liq) 30 ml DAILY PRN PO 11/01/16 16:15 (Mag-Al Plus Susp Liq) 30 ml Q6H PRN PO 11/01/16 16:15 (SEROquel) 50 mg HS PO 11/01/16 21:00 11/01/16 21:59 (Effexor Xr) 37.5 mg DAILY PO 11/02/16 09:00 11/02/16 09:00 (Keppra) 500 mg Q12HR PO 11/01/16 21:00 11/02/16 09:00 (Coreg) 6.25 mg Q12HR PO 11/01/16 21:00 11/02/16 09:00 (Decadron) 4 mg Q6HR PO 11/01/16 18:00 11/02/16 12:00 Family History Father- [place] Paternal grandmother -gastric cancer . Substance Use Tobacco: Former smoker/history of 3 packs a day. Quit 20 years ago. Alcohol: Denies. Prescription med abuse: Denies. Illicits: Denies. . Psychosocial History Patient is . She has 3 biological children, 2 boys who residing [place] on one daughter who lives in [place]. Patient has no contact with her biological children. Patient is originally from [place]. Residing independently prior to September 2016. . Spiritual/Cultural Factors Religion Heritage Religion. . Living Will: Copy in medical record Health Care Surrogate: Copy in medical record Durable Power of Senior Hardware Design Engineer: Completed, but not made available Date completed: June 29, 2015. . Health Care Surrogate(s): Healthcare surrogate Crystal Romo, alternate surrogate Garcia Romo. . Documented care wishes: Living will scanned. Standard verbiage. . Family/friends goals: Full code. Continue aggressive care with hopes to discharge to rehabilitation for physical straightening and initiation of radiation/chemotherapy. . Ethical and Legal Issues No ethical legal issues have been identified. . Physical Exam Vital Signs Date Time Temp Pulse Resp B/P Pulse Ox O2 Delivery O2 Flow Rate FiO2 11/02/16 05:47 97.1 75 16 119/65 98 11/02/16 00:27 97.7 67 18 106/68 97 11/01/16 19:32 97.8 57 18 114/68 99 11/01/16 11/02/16 19:00 07:00 Intake Total 120 ml Balance 120 ml Intake Oral 120 ml # Voids 1 Exam CONSTITUTIONAL/GENERAL: This is an adequately nourished patient, in no apparent distress. TUBES/LINES/DRAINS: PIV's. SKIN: No jaundice, rashes, or lesions. scatter ecchymoses on upper extremities. Skin temperature appropriate. Not diaphoretic. HEAD: Atraumatic. Normocephalic. EYES: Pupils equal and round and reactive. No scleral icterus. No injection or drainage. ENT: Hearing grossly normal. Nose without bleeding or purulent drainage. Throat without visible erythema, exudates, masses, or lesions. NECK: Trachea midline. Supple. CARDIOVASCULAR: Regular rate and rhythm without murmurs, gallops, or rubs. No JVD. Peripheral pulses symmetric. RESPIRATORY/CHEST: Symmetric, unlabored respirations. Clear to auscultation. Breath sounds equal bilaterally. No wheezes, rales, or rhonchi. GASTROINTESTINAL: Abdomen soft, mildly distended, nondistended. No guarding. Bowel sounds present. GENITOURINARY: Without palpable bladder distension. MUSCULOSKELETAL: Extremities without clubbing, cyanosis, or edema. NEUROLOGICAL: Awake and alert to self, situation and place, appears of confusion but easily reoriented. Follows commands. Moves all extremities. PSYCHIATRIC: No obvious anxiety/depression. Calm. Pleasant and cooperative. . Diagnostic Tests Laboratory Laboratory Tests Test 11/02/16 06:22 Sodium Level 138 MEQ/L (136-145) Potassium Level 3.9 MEQ/L (3.5-5.1) Chloride Level 106 MEQ/L (98-107) Carbon Dioxide Level 23.4 MEQ/L (21.0-32.0) Anion Gap 9 MEQ/L (5-15) Blood Urea Nitrogen 16 MG/DL (7-18) Creatinine 0.50 MG/DL (0.50-1.00) Estimat Glomerular Filtration 121 ML/MIN Rate (>89) Random Glucose 118 MG/DL (74-106) Calcium Level 8.5 MG/DL (8.5-10.1) Triglycerides Level 284 MG/DL (42-150) Cholesterol Level 295 MG/DL (120-200) LDL Cholesterol 202 MG/DL (0-99) HDL Cholesterol 36.4 MG/DL (40.0-60.0) Cholesterol/HDL Ratio 8.10 RATIO Result Diagram: 11/02/16 0622 Patient/Family Conference Present at Family Conference: Healthcare surrogate Crystal Romo. Family Conference Time (mins): 32 Family Conference Location: Telephone Issues Discussed: * Palliative care role, purpose, approach * Additional medical, psychosocial, and spiritual history * Patients general health, functional status, and cognitive changes in the months leading up to the current hospitalization * Family understanding of the current medical problems -glioblastoma * Family understanding of prognosis with or without radiation/chemotherapy. * Patients goals of care as best understood from advance directives and/or conversations and/or values * Current medical treatment options and benefits/burdens of those options * Questions answered to the best of my ability * Palliative care contact information provided . Assessment and Plan Disease Oriented Problem List: (1) Rectal bleeding (2) Glioblastoma multiforme (3) Major depressive disorder, single episode Symptom Scale: (1) Confusion 0-10 Scale: Unable to quantify Comment: Confusion/delirium due to underlying medical condition. (2) Debility 0-10 Scale: Unable to quantify Comment: Progressive secondary to recent prolonged hospitalization and acute complications. Pertinent Non-Medical Issues Psychosocial: . Has 3 biological children. Spiritual: Religion Heritage Religion. Legal: Advance directives completed. Ethical issues impacting care: No ethical issues have been identified. . Important Contacts Healthcare surrogate -Crystal Romo [phone]. Alternate healthcare surrogate Garcia Romo . . Prognosis Mrs. Bay is a 71-year-old female with a medical history significant for glioblastoma multiform, grade 4, status post subtotal guided craniotomy for resection on 10/05/16. Clinical course complicated by bilateral PEs status post IVC placement, continued rectal bleeds, and recent hospitalizations. Overall prognosis is poor for an improved quality of life given presentation of glioblastoma, complications, hospitalizations, age and physical deconditioning. Patient is at high risk for continued decline, further complications and . . Code Status: Full Code Plan * CODE STATUS: full code. * HEALTH CARE DECISION-MAKING: Patient remains intermittently confused, likely to regain capacity. Healthcare designation secured and scanned into medical records. Healthcare surrogate Crystal Romo, alternate surrogate Garcia Romo. * GOALS OF CARE: Full code. Continue aggressive care with hopes to discharge to rehabilitation for physical straightening and initiation of radiation/ chemotherapy. Telephone conversation with healthcare surrogate Crystal Romo. Medical update provided. Judith tells me that she is very upset for events leading to transfer to psychiatric floor. She feels that patient is confused and that's why she acted upon her frustration. She tells me that the reason why radiation was not started secondary to medical complications, GI bleed and not because of refusal. Judith reports that goals of care remains unchanged from previous hospitalization to include discharge to rehabilitation for physical straightening and initiation of radiation and chemotherapy when medically cleared. Reviewed CODE STATUS given patient's diagnosis of glioblastoma, recent complications, and age. Judith tells me that patient is to continue full CODE STATUS. Judith in agreement to meet with palliative care for further clarifications of goals of care tomorrow 11/03/16 at 4 PM. * SYMPTOMS: ==Confusion/delirium secondary to underlying medical condition. Currently under psychiatric care. Expected to improve. ==Debility: Progressive since September 2016 secondary to recent prolonged hospitalization and acute complications. Likely to return to rehabilitation for physical straightening. * Case was discussed in detail with Dr. Wiggins and Dr. Leon with palliative care. * Palliative care contact information has been provided to healthcare surrogate. * Palliative care will continue to follow-up for further clarifications of goals of care as the clinical course evolves. . Time Spent Total Floor Time (mins): 85 (Total time to include review and summarization of available medical records to include prior hospitalizations, physical exam, telephone conversation with healthcare surrogate and case discussion with Dr. Wiggins.) >50% Counseling/Coord of Care: Yes Thank you for the opportunity to participate in the care of Ms. Bay. Attestation To help prompt me to consider important information that might be impacting today's encounter and assessment, information from prior notes written by myself or my colleagues may have been "brought forward" into today's note. My signature on this note, however, is an attestation that I personally performed the exam, history, and/or decision-making noted today, and, unless otherwise indicated, the interactions with patient, family, and staff as well as the review of records all occurred today. I also attest that the listed assessment and stated plan reflect my best clinical judgment today based on the combination of historical information, prior notes, and today's exam/ interactions. When time spent is documented, it refers only to time spent today by the signer, or if indicated, combined time spent today by collaborating physician/nurse practitioner. Debbie Hooks Nov 02, 2016 15:03
[2016-11-02] MEDS: PANTOPRAZOLE SOD 40 MG DELAYED RELEASE TAB PO SCH (15:45)
[2016-11-02 15:51] LABS: HEMOGLOBIN A1a 1.5 %; HEMOGLOBIN A1b 1.9 %; HEMOGLOBIN Ao 84.1 %; HEMOGLOBIN LA1C 1.9 %; HEMOGLOBIN P3 4.1 %
--- NOTE | 2016-11-02 16:26 | HHI.HP ---
Provisional Diagnosis Admission Date Nov 01, 2016 at 15:00 [place] I. Major depressive disorder, single episode [place] II. Deferred [place] III. [facility] Certification of Person's Competence To Provide Express and Informed Consent I have personally examined Pauline Bay , a person being served at [facility] on, Nov 02, 2016 16:10. Express and informed consent means consent voluntarily given in writing, by a competent person, after sufficient explanation and disclosure of the subject matter involved to enable the person to make a knowing and willful decision without any element of force, fraud, deceit, duress, or other form of constraint or coercion. This person is 18 years of age or older, is not now known to be incompetent to consent to treatment with a guardian advocate, and does not have a health care surrogate or proxy currently making medical treatment decisions. I have found this person to be one of the following: [] Competent to provide express and informed consent, as defined above, for voluntary admission to this facility and is competent to provide express and informed consent for treatment. He/she has the consistent capacity to make well reasoned, willful, and knowing decisions concerning his or her medical or mental health treatment. The person fully and consistently understands the purpose of the admission for examination/placement and is fully capable of personally exercising all rights assured under [place] [] Incompetent to provide express and informed consent to voluntary admission, and this is incompetent to provide express and informed consent to treatment. The person must be transferred to involuntary status and a petition for a guardian advocate filed with the Circuit Court. [X] Refusing to provide express and informed consent to voluntary admission but is competent to provide express and informed consent for treatment. The person must be discharged or transferred to involuntary status. Form shall be completed within 24 hours of a person's arrival at the receiving facility and filed in the clinical record of each person: 1. Admitted on a voluntary basis 2. Permitted to provide express and informed consent to his/her own treatment 3. Allowed to transfer from involuntary to voluntary status 4. Prior to permitting a person to consent to his or her own treatment after having been previously found incompetent to consent to treatment. History of Present Illness Capacity: Has Capacity HPI 10/31/2016 The patient is a 71-year-old woman, domiciled alone in [place], single, retired, without any previous psychiatric history, no psychiatric hospitalizations, no previous suicidal attempts, with significant medical history of glioblastoma multiforme and pulmonary embolism currently on Lovenox who presented to the emergency department due to persistent lower GI bleed. Patient reports that since September 19, 2016 she has been having off and on lower GI bleed. She was recently admitted to the hospital for similar symptoms as well as fecal impaction. Colorectal surgery evaluated her during the last admission. Patient was discharged on 10/26/2016 and was continued on Lovenox. She was diagnosed with glioblastoma multiforme in September 2016 when she developed increasing confusion and hallucinations. Imaging studies indicated a mass in the right temporal area. She underwent resection on 2016. CT thorax on 09/25/2016 showed pulmonary embolism and subsequently patient underwent IVC umbrella filter placement prior to surgery. Patient has been presenting altered mental status, with on and off lucidity during this hospitalizations, this morning she cut herself with a knife in the left wrist because she felt that she is impersonated and she is not getting enough attention. Patient was consulted to psychiatry to assess potential suicidal ideation in her gesture. On psychiatric evaluation patient is calm, but just superficially cooperative, she seems to be confused, with poor reality lucidity. Her wmxooqmt-sm-wab Crystal Forbes, who was sitting down in her side was used as a collateral information to complete psychiatric assessment. The patient was able to state that she has been frustrated, because she wants to go home. She says that her life has been very traumatic, but nothing feels like being in the hospital without attention and without clear communication of what is happening. Patient states that she did not wanted to commit suicide but she wanted everybody to no that she was overwhelmed and frustrated. At this moment she denies suicidal ideation, and she says that she is committed to continue her medical treatment, recommendations and get better, she says that she has hope that it will happen. She does endorse sadness, low appetite, low energy, problems sleeping at night, anxiety during the day, disrupted thoughts about the side effects of chemotherapy and radiotherapy. Patient is oriented in person time and place, she seems to understand the reason of her hospitalization , she can list her medical problems, understanding importance of her treatment and follow-up recommendation. Her vogpipyy-cy-hko adds that the patient has been entrapped in the system already twice. She says that the patient was 3 days in the ER without a clear communication of the reason of her hospitalization. She says that the patient is a very strict person who likes to be on control of herself stuffs. She does not think that the patient wanted to commit suicide, she thinks that the patient has been confused and very anxious. Patient denies the use of alcohol and drugs. 10/22/2016 Patient was seen today for psychiatric reevaluation, she was in her bed sitting quietly, she is states that today she feels a little better than yesterday, however confused about her medical situation, feeling entrapped in the vicious [place], patient says that her motivation is very low, that she feels very empty, pessimistic about her future. She reports better sleep last night, she denies suicidal or homicidal ideation, she denies visual and auditory hallucinations. When she was confronted about her suicidal attempt yesterday she says that she is not sure what she wanted "most probably was just a called for attention and a cry for help". Patient is fully oriented 3, however at times she seems to be confused and distant. No agitation or aggressive behavior reported. Today patient seen for psychiatric reevaluation along with nurse in charge Andrzej Sherman and AUBREE Parks, patient stated that she continues to be depressed due to the limited time that she has to live, but also to the confusion of what she has to do and the next step for her radiation and chemotherapy. Patient says that she is very confused because she doesn't know if treatment is really worth it. She also states that she prefers to go home and , but at the same time her significant family members want her to fight and she doesn't want to disappoint them. Patient reports feelings of worthlessness, low energy, hopelessness, helplessness, sadness about her situation, and suicidal thoughts, no plan. She says that 2 days ago her suicidal attempt by cutting with a knife in her room in the medical floor was mostly a cry of help and desperation. Patient reports improved sleep since she is on Seroquel. She denies homicidal ideation, she denies visual and auditory hallucinations. Patient is oriented 3 , no confusion, no fluctuation of consciousness, no delusions, no paranoia, no aggressive behavior or agitation observed. Patient agrees to re-meet with palliative care, oncology, her family in order to create a plan for her and see what is the best. Review of Systems Constitutional: COMPLAINS OF: Fatigue, DENIES: Diaphoretic episodes, Fever, Weight gain, Weight loss, Chills, Dizziness, Change in appetite, Night Sweats Endocrine: DENIES: Abnorml menstrual pattern, Heat/cold intolerance, Polydipsia , Polyuria, Polyphagia Eyes: DENIES: Blurred vision, Diplopia, Eye inflammation, Eye pain, Vision loss , Photosensitivity, Double Vision Ears, nose, mouth, throat: DENIES: Tinnitus, Hearing loss, Vertigo, Nasal discharge, Oral lesions, Throat pain, Hoarseness, Ear Pain, Running Nose, Epistaxis, Sinus Pain, Toothache, Odynophagia Respiratory: DENIES: Apneas, Cough, Snoring, Wheezing, Hemoptysis, Sputum production, Shortness of breath Cardiovascular: DENIES: Chest pain, Palpitations, Syncope, Dyspnea on Exertion , PND, Lower Extremity Edema, Orthopnea, Claudication Gastrointestinal: DENIES: Abdominal pain, Black stools, Bloody stools, Constipation, Diarrhea, Nausea, Vomiting, Difficulty Swallowing, Anorexia Musculoskeletal: DENIES: Joint pain, Muscle aches, Stiffness, Joint Swelling, Back pain, Neck pain Integumentary: DENIES: Abnormal pigmentation, Pruritus, Rash, Nail changes, Breast masses, Breast skin changes, Nipple discharge Hematologic/lymphatic: DENIES: Bruising, Lymphadenopathy Immunologic/allergic: DENIES: Eczema, Urticaria Neurologic: DENIES: Abnormal gait, Headache, Localized weakness, Paresthesias, Seizures, Speech Problems, Tremor, Poor Balance Psychiatric: COMPLAINS OF: Suicidal Ideation, DENIES: Anxiety, Confusion, Mood changes, Depression, Hallucinations, Agitation, Homicidal Ideation, Delusions Past Psych History Violence risk - self (6 mos) Elevated risk of suicidality Substance Abuse History Drugs/Alcohol past 12 months She denies Past Family Social History Coded Allergies: Codeine (Verified Allergy, Severe, nausea/vomiting/itching/sweating, ) Active Scripts Quetiapine 25 Mg Tab25 Mg PO HS #30 TAB Prov:Omayra Ellis DO 11/01/16 [Venlafaxine Hcl] (Effexor Xr)37.5 MG CAPER No Conflict Check37.5 Mg PO DAILY # 30 CAP.SR Prov:Omayra Ellis DO 11/01/16 Enoxaparin Inj (Lovenox Inj)60 Mg/0.6 Ml Syr50 Mg SQ Q12H 30 Days Prov:Omayra Ellis DO 11/01/16 Potassium Chloride ER 20 Meq Tab20 Meq PO DAILY #30 TAB Ref 0 Prov:Ashtyn Yuen MD 10/26/16 Omeprazole 40 Mg Cap40 Mg PO DAILY #30 CAP Ref 0 Prov:Ashtyn Yuen MD 10/26/16 Hydrocodone-Acetaminophen 10-325 mg Tab1 Tab PO Q4HR #20 TAB Prov:Ashtyn Yuen MD 10/26/16 Sennosides-Docusate Sodium (Senna Plus 8.6-50 mg)1 Tab Tab1 Tab PO BID #60 TAB Prov:Kaushik Arce MD 10/14/16 Levetiracetam (Keppra)500 Mg Uox661 Mg PO Q12HR #60 TAB Prov:Kaushik Arce MD 10/14/16 Furosemide 20 Mg Tab20 Mg PO BID@,18 #60 TAB Prov:Kaushik Arce MD 10/14/16 Dexamethasone 4 Mg Tab4 Mg PO Q6HR #120 TAB Prov:Kaushik Arce MD 10/14/16 Carvedilol (Coreg)6.25 Mg Tab6.25 Mg PO Q12HR #60 TAB Prov:Kaushik Arce MD 10/14/16 Discontinued Reported Medications Omeprazole 20 Mg Tab20 Mg PO DAILY #30 TAB Ref 0 10/24/16 Discontinued Scripts Enoxaparin Inj (Lovenox Inj)80 mg/0.8 ML Syr80 Mg SQ Q12H #60 INJECTION Prov:Kaushik Arce MD 10/14/16 Levofloxacin (Levaquin)750 Mg Fnf988 Mg PO DAILY #6 TAB Ref 0 Prov:Ashtyn Yuen MD 10/26/16 Hydrocodone-Acetaminophen 10-325 mg Tab1 Tab PO Q4HR #20 TAB Prov:Kaushik Arce MD 10/14/16 Current Medications Medications (Trade) Dose Ordered Sig/Hardeep Route Start Time Stop Time Status Last Admin (Tylenol) 650 mg Q4H PRN PO 11/01/16 16:15 (Milk Of Magnesia Liq) 30 ml DAILY PRN PO 11/01/16 16:15 (Mag-Al Plus Susp Liq) 30 ml Q6H PRN PO 11/01/16 16:15 (SEROquel) 50 mg HS PO 11/01/16 21:00 11/01/16 21:59 (Keppra) 500 mg Q12HR PO 11/01/16 21:00 11/02/16 09:00 (Coreg) 6.25 mg Q12HR PO 11/01/16 21:00 11/02/16 09:00 (Decadron) 4 mg Q6HR PO 11/01/16 18:00 11/02/16 12:00 (Protonix) 40 mg DAILY PO 11/02/16 15:45 (Lovenox Inj) 50 mg Q12H SQ 11/02/16 17:00 (Miralax) 17 gm DAILY PO 11/03/16 09:00 (Colace) 100 mg BID PO 11/02/16 21:00 (Effexor Xr) 75 mg DAILY PO 11/03/16 09:00 UNV Social History Patient was born and raised in [place], she lives alone in [place], she is single, she has 3 kids, she is supported by Social Security, her highest level of education is 12th grade Physical Exam Vital Signs Vital Signs Date Time Temp Pulse Resp B/P Pulse Ox O2 Delivery O2 Flow Rate FiO2 11/02/16 05:47 97.1 75 16 119/65 98 I/O 11/01/16 11/01/16 11/02/16 08:00 16:00 00:00 Intake Total 120 ml Balance 120 ml Mental Status Examination Appearance woman, age appearing, good hygiene, [facility], calm, superficially cooperative Speech: Unremarkable Orientation: x3 Memory: Unremarkable Thought Process: Logical Thought Content: Unremarkable Hallucination Type: None Suicidal Ideation: Yes Previous Suicide Attempts: Yes Homicidal Ideation: No Judgement: Poor Affect: Sad Mood: Oppositional Motor Activity: Normal gait Assessment & Plan Problem List: (1) Major depressive disorder, single episode Assessment & Plan: The patient is a 71-year-old woman without any previous psychiatric history, no psychiatric hospitalizations, no previous suicidal attempts, with significant medical history of glioblastoma multiforme and pulmonary embolism currently on Lovenox who was admitted to the hospital after she came to the emergency department with persistent lower GI bleed. Patient consulted to psychiatry due to suicidal gesture of cutting her left wrist with a plastic knife. On psychiatric evaluation patient continues to report symptomatology of depression patient also has visible objective note of repetitive symptoms of depression such as psychomotor retardation, problems sleeping, hypoactivity, lethargy. She reports hopelessness, helplessness, frequent suicidal thoughts, no ideation or intentions. Patient is very confused about the next step about her cancer treatment. At this moment patient represents an elevated risk of suicidality due to her recent suicidal attempt in the hospital, lack of family and social support at home, terminal illness and severe hopelessness. Will increase Effexor to 75 mg for depression , continue Seroquel 50 mg to help with sleep and mood. 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 She will participate in individual and group therapies in the unit. Extensive psychoeducation, supportive motivation provided. We will consult psychiatry for second opinion. Will consult hospital is to follow-up underlying medical illnesses. Will consult oncology for recommendation regarding chemotherapy and radiotherapy. Will consult palliative care for cause of care and potential hospice eligibility. Will consult PT to assess level of physical functionality. ICD Code: F32.9 Assessment & Plan Estimated LOS: days Charlie Elizabeth MD Nov 02, 2016 16:26
[2016-11-02] MEDS: ENOXAPARIN SODIUM 60 MG/0.6 ML SYRINGE SQ SCH (17:00)
[2016-11-02 18:49] VITALS: BP 119/79; PULSE 74; RESP 16; TEMP 98; O2SAT 96
[2016-11-02] MEDS: QUEtiapine FUMARATE 25 MG TAB PO SCH (20:34)
[2016-11-02] MEDS: DOCUSATE SODIUM 100 MG CAP PO SCH (20:35)
[2016-11-03] MEDS: ENOXAPARIN SODIUM 60 MG/0.6 ML SYRINGE SQ SCH ×2 (05:34→17:00)
[2016-11-03] MEDS: DEXAMETHASONE 4 MG TAB PO SCH ×4 (05:34→23:18)
[2016-11-03 06:01] VITALS: BP 155/89; PULSE 79; RESP 18; TEMP 97.6; O2SAT 99
--- NOTE | 2016-11-03 08:11 | PD.CONS ---
Provisional Diagnosis Admission Date Nov 01, 2016 at 15:00 [place] I. Major depressive disorder, single episode [place] II. Deferred [place] III. [facility] History of Present Illness Service Psychiatry Consult Requested By Primary Care Physician Unknown HPI 10/31/2016 The patient is a 71-year-old woman, domiciled alone in [place], single, retired, without any previous psychiatric history, no psychiatric hospitalizations, no previous suicidal attempts, with significant medical history of glioblastoma multiforme and pulmonary embolism currently on Lovenox who presented to the emergency department due to persistent lower GI bleed. Patient reports that since September 19, 2016 she has been having off and on lower GI bleed. She was recently admitted to the hospital for similar symptoms as well as fecal impaction. Colorectal surgery evaluated her during the last admission. Patient was discharged on 10/26/2016 and was continued on Lovenox. She was diagnosed with glioblastoma multiforme in September 2016 when she developed increasing confusion and hallucinations. Imaging studies indicated a mass in the right temporal area. She underwent resection on 2016. CT thorax on 09/25/2016 showed pulmonary embolism and subsequently patient underwent IVC umbrella filter placement prior to surgery. Patient has been presenting altered mental status, with on and off lucidity during this hospitalizations, this morning she cut herself with a knife in the left wrist because she felt that she is impersonated and she is not getting enough attention. Patient was consulted to psychiatry to assess potential suicidal ideation in her gesture. On psychiatric evaluation patient is calm, but just superficially cooperative, she seems to be confused, with poor reality lucidity. Her iuxlznbm-ha-znv Crystal Forbes, who was sitting down in her side was used as a collateral information to complete psychiatric assessment. The patient was able to state that she has been frustrated, because she wants to go home. She says that her life has been very traumatic, but nothing feels like being in the hospital without attention and without clear communication of what is happening. Patient states that she did not wanted to commit suicide but she wanted everybody to no that she was overwhelmed and frustrated. At this moment she denies suicidal ideation, and she says that she is committed to continue her medical treatment, recommendations and get better, she says that she has hope that it will happen. She does endorse sadness, low appetite, low energy, problems sleeping at night, anxiety during the day, disrupted thoughts about the side effects of chemotherapy and radiotherapy. Patient is oriented in person time and place, she seems to understand the reason of her hospitalization , she can list her medical problems, understanding importance of her treatment and follow-up recommendation. Her tplpoqji-me-ykw adds that the patient has been entrapped in the system already twice. She says that the patient was 3 days in the ER without a clear communication of the reason of her hospitalization. She says that the patient is a very strict person who likes to be on control of herself stuffs. She does not think that the patient wanted to commit suicide, she thinks that the patient has been confused and very anxious. Patient denies the use of alcohol and drugs. 10/22/2016 Patient was seen today for psychiatric reevaluation, she was in her bed sitting quietly, she is states that today she feels a little better than yesterday, however confused about her medical situation, feeling entrapped in the vicious [place], patient says that her motivation is very low, that she feels very empty, pessimistic about her future. She reports better sleep last night, she denies suicidal or homicidal ideation, she denies visual and auditory hallucinations. When she was confronted about her suicidal attempt yesterday she says that she is not sure what she wanted "most probably was just a called for attention and a cry for help". Patient is fully oriented 3, however at times she seems to be confused and distant. No agitation or aggressive behavior reported. Today patient seen for psychiatric reevaluation along with nurse in charge Andrzej Sherman and AUBREE Parks, patient stated that she continues to be depressed due to the limited time that she has to live, but also to the confusion of what she has to do and the next step for her radiation and chemotherapy. Patient says that she is very confused because she doesn't know if treatment is really worth it. She also states that she prefers to go home and , but at the same time her significant family members want her to fight and she doesn't want to disappoint them. Patient reports feelings of worthlessness, low energy, hopelessness, helplessness, sadness about her situation, and suicidal thoughts, no plan. She says that 2 days ago her suicidal attempt by cutting with a knife in her room in the medical floor was mostly a cry of help and desperation. Patient reports improved sleep since she is on Seroquel. She denies homicidal ideation, she denies visual and auditory hallucinations. Patient is oriented 3 , no confusion, no fluctuation of consciousness, no delusions, no paranoia, no aggressive behavior or agitation observed. Patient agrees to re-meet with palliative care, oncology, her family in order to create a plan for her and see what is the best. 11/03/16 Above note dictated by Dr. Leyva reviewed and agreed with. Patient is a 71- year-old white female admitted to Dr. Leyva service under the Carter act. Patient seen by me with nurse, patient depressed somewhat confused and delusional. Stating she has stage IV cancer but that she does not want to like mali ruiz. Dr. Leyva has signed first opinion petition supporting Carter act. I agree. Patient meets criteria for involuntary psychiatric hospitalization under the Carter act. Thus I will cosign second opinion petition supporting Carter act Past Family Social History Coded Allergies: Codeine (Verified Allergy, Severe, nausea/vomiting/itching/sweating, ) Active Scripts Quetiapine 25 Mg Tab25 Mg PO HS #30 TAB Prov:Omayra Ellis DO 11/01/16 [Venlafaxine Hcl] (Effexor Xr)37.5 MG CAPER No Conflict Check37.5 Mg PO DAILY # 30 CAP.SR Prov:Omayra Ellis DO 11/01/16 Enoxaparin Inj (Lovenox Inj)60 Mg/0.6 Ml Syr50 Mg SQ Q12H 30 Days Prov:Omayra Ellis DO 11/01/16 Potassium Chloride ER 20 Meq Tab20 Meq PO DAILY #30 TAB Ref 0 Prov:Ashtyn Yuen MD 10/26/16 Omeprazole 40 Mg Cap40 Mg PO DAILY #30 CAP Ref 0 Prov:Ashtyn Yuen MD 10/26/16 Hydrocodone-Acetaminophen 10-325 mg Tab1 Tab PO Q4HR #20 TAB Prov:Ashtyn Yuen MD 10/26/16 Sennosides-Docusate Sodium (Senna Plus 8.6-50 mg)1 Tab Tab1 Tab PO BID #60 TAB Prov:Kaushik Arce MD 3/10/17 Levetiracetam (Keppra)500 Mg Xqe528 Mg PO Q12HR #60 TAB Prov:Kaushik Arce MD 10/14/16 Furosemide 20 Mg Tab20 Mg PO BID@09,18 #60 TAB Prov:Kaushik Arce MD 10/14/16 Dexamethasone 4 Mg Tab4 Mg PO Q6HR #120 TAB Prov:Kaushik Arce MD 10/14/16 Carvedilol (Coreg)6.25 Mg Tab6.25 Mg PO Q12HR #60 TAB Prov:Kaushik Arce MD 10/14/16 Discontinued Scripts Enoxaparin Inj (Lovenox Inj)80 mg/0.8 ML Syr80 Mg SQ Q12H #60 INJECTION Prov:Kaushik Arce MD 10/14/16 Levofloxacin (Levaquin)750 Mg Sum299 Mg PO DAILY #6 TAB Ref 0 Prov:Ashtyn Yuen MD 10/26/16 Current Medications Medications (Trade) Dose Ordered Sig/Hardeep Route Start Time Stop Time Status Last Admin (Tylenol) 650 mg Q4H PRN PO 11/01/16 16:15 (Milk Of Magnesia Liq) 30 ml DAILY PRN PO 11/01/16 16:15 (Mag-Al Plus Susp Liq) 30 ml Q6H PRN PO 11/01/16 16:15 (SEROquel) 50 mg HS PO 11/01/16 21:00 11/02/16 20:34 (Keppra) 500 mg Q12HR PO 11/01/16 21:00 11/02/16 20:34 (Coreg) 6.25 mg Q12HR PO 11/01/16 21:00 11/02/16 20:35 (Decadron) 4 mg Q6HR PO 11/01/16 18:00 11/03/16 05:34 (Protonix) 40 mg DAILY PO 11/02/16 15:45 11/02/16 15:45 (Lovenox Inj) 50 mg Q12H SQ 11/02/16 17:00 11/03/16 05:34 (Miralax) 17 gm DAILY PO 11/03/16 09:00 (Colace) 100 mg BID PO 11/02/16 21:00 11/02/16 20:35 (Effexor Xr) 75 mg DAILY PO 11/03/16 09:00 Physical Exam Vital Signs Vital Signs Date Time Temp Pulse Resp B/P Pulse Ox O2 Delivery O2 Flow Rate FiO2 11/03/16 06:01 97.6 79 18 155/89 99 I/O 11/02/16 11/02/16 11/03/16 08:00 16:00 00:00 Intake Total 0 ml 240 ml 860 ml Balance 0 ml 240 ml 860 ml Mental Status Examination Speech: Unremarkable Orientation: x3 Memory: Unremarkable Thought Process: Logical Thought Content: Unremarkable Hallucination Type: None Suicidal Ideation: Yes Previous Suicide Attempts: Yes Homicidal Ideation: No Judgement: Poor Affect: Sad Mood: Oppositional Motor Activity: Normal gait Assessment & Plan Problem List: (1) Major depressive disorder, single episode ICD Code: F32.9 Assessment & Plan Estimated LOS: Bon Lepe MD Nov 03, 2016 08:11
[2016-11-03] MEDS: DOCUSATE SODIUM 100 MG CAP PO SCH ×2 (08:46→20:09)
[2016-11-03] MEDS: PANTOPRAZOLE SOD 40 MG DELAYED RELEASE TAB PO SCH (08:46)
[2016-11-03] MEDS: levETIRAcetam 500 MG TAB PO SCH ×2 (08:46→20:09)
[2016-11-03] MEDS: CARVEDILOL 6.25 MG TAB PO SCH ×2 (08:47→20:09)
[2016-11-03] MEDS: POLYETHYLENE GLYCOL 17 GM PKG PO SCH (08:50)
[2016-11-03] MEDS ORDERED: VENLAFAXINE HCL XR 75 MG CAP PO SCH (09:00)
--- NOTE | 2016-11-03 12:29 | HHI.PYPN ---
Subjective Remarks Patient was seen for psychiatric reevaluation today along with social media job titles Kasey and also nurse in charge Andrzej, patient endorses depressed mood, however it she says that she feels better than yesterday, 5/10 mood, compared with 4/5 yesterday. She has been confused regarding her medical treatment, very confused about her future, what would be the best for her. She says that she really appreciates what is being done for her in the hospital, she knows that the best for her is to continue the recommendation of the doctors and go for radiation therapy and chemotherapy "I'm going to do it, but I feel so sad about the whole situation". During the conversation patient is tearful and objectively melancholic. She reports better sleep with Seroquel, her appetite is also a little bit improved. She denies suicidal ideation, but reports thoughts. She denies abuse ideation, she denies visual and auditory hallucinations. No paranoia or delusions observed. Patient has been described as pleasant and cooperative in the unit, no agitation, no aggressive behavior reported. I communicated yesterday with palliative care team about goals of care, they clarify that the patient can go back to inpatient rehabilitation facility once medically and psychiatrically cleared, her chemotherapy and radiation therapy are already set up. Health care by proxy and code status already singed and discussed. Review of Systems Other No somatic complaints Objective Alert: Yes [place]: Person, Place, Date, Situation Mood: Depressed Affect: Restricted Memory Intact: Immediate, Recent, Remote Hallucinations: Other (none) Delusions: No Delusion Type: Other (none) Suicidal: Ideation (she denies) Homicidal: Ideation (she denies) Insight/Judgement Poor Vitals/IOs Vital Signs Date Time Temp Pulse Resp B/P Pulse Ox O2 Delivery O2 Flow Rate FiO2 11/03/16 06:01 97.6 79 18 155/89 99 Intake and Output 11/02/16 11/02/16 11/03/16 08:00 16:00 00:00 Intake Total 0 ml 240 ml 860 ml Balance 0 ml 240 ml 860 ml Assessment & Plan Problem List: (1) Major depressive disorder, single episode Assessment & Plan: Patient continues to be objectively and subjectively depressed, with suicidal thoughts, no suicidal plan. Her sleep has improved with Seroquel 50 mg. Will increase Effexor to 100 mg daily to help with depression. Extensive psychoeducation, supportive motivation provided. Continue PT, counseling, daily therapy. Palliative care input really appreciated. ICD Code: F32.9 Assessment & Plan Estimated LOS: days Justification for Cont. Inpt. Patient has a very high risk to decompensate out of the psychiatric unit Charlie Elizabeth MD Nov 03, 2016 12:29
--- NOTE | 2016-11-03 14:04 | HHI.PR ---
Subjective Remarks Follow-up visit history of blastoma multiforme, status post resection, PE , lower GI bleed ,suicidal ideation. Patient seen today. Reports she is doing much better. Complaints of weakness. States that physical therapy saw her today and worked with her. Requesting help to regain his strength back. Denies any thoughts of hurting herself. States that the time that she hurt herself because she was really frustrated regarding insurance money. States she would cooperate with treatment plans. Otherwise, denies pain and discomfort. Denies SOB/ dyspnea. Denies chest pain, palpitations, headaches, dizziness. Denies fevers, chills, n/v/d. Objective Vitals Vital Signs Date Time Temp Pulse Resp B/P Pulse Ox O2 Delivery O2 Flow Rate FiO2 11/03/16 06:01 97.6 79 18 155/89 99 11/02/16 18:49 98.0 74 16 119/79 96 I/O 11/02/16 11/02/16 11/02/16 11/03/16 11/03/16 11/03/16 07:00 15:00 23:00 07:00 15:00 23:00 Intake Total 0 ml 240 ml 240 ml 860 ml 120 ml Balance 0 ml 240 ml 240 ml 860 ml 120 ml Intake Oral 0 ml 240 ml 240 ml 860 ml 120 ml # Voids 0 2 2 # Bowel Movements 1 Result Diagram: 11/02/16 0622 Objective Remarks GENERAL: This is a well-nourished, well-developed patient, in no apparent distress. SKIN: No rashes, ecchymoses or lesions. Cool and dry. HEAD: Incision occipital area CDI. [place] have been removed. EYES: Pupils equal round and reactive. Extraocular motions intact. No scleral icterus. No injection or drainage. ENT: Nose without bleeding. Throat without erythema. Uvula midline. Airway patent. NECK: Trachea midline. No JVD or lymphadenopathy. Supple, nontender, no meningeal signs. CARDIOVASCULAR: Regular rate and rhythm without murmurs, gallops, or rubs. RESPIRATORY: Clear to auscultation. Breath sounds equal bilaterally. No wheezes , rales, or rhonchi. GASTROINTESTINAL: Abdomen soft, non-tender, nondistended. Bowel sounds active 4 MUSCULOSKELETAL: Extremities without clubbing, cyanosis, or edema. No joint tenderness, effusion, or edema noted. NEUROLOGICAL: Awake and alert. No focal neuro deficits. Motor and sensory grossly within normal limits. Normal speech. A/P Problem List: (1) Glioblastoma multiforme ICD Code: C71.9 Status: Acute (2) Adjustment disorder with depressed mood ICD Code: F43.21 Status: Acute (3) GI bleed ICD Code: K92.2 Status: Acute (4) Pulmonary embolism ICD Code: I26.99 Status: Acute (5) Anemia ICD Code: D64.9 Status: Acute (6) Major depressive disorder, single episode ICD Code: F32.9 Status: Acute Assessment and Plan Patient is a 71 year old female with primary medical history of glioblastoma multiforme, pulmonary embolism currently on Lovenox who came into the hospital secondary to persistent lower GI bleed. As per records review, she was diagnosed with glioblastoma multiforme in September 2016 she developed increasing confusion and hallucination. Imaging studies indicated a mass in the right temporal area. She underwent resection on 09/28/2016. CT thorax on showed pulmonary embolism and subsequently patient underwent IVC umbrella filter placement prior to surgery. She was receiving low-dose Lovenox following surgery but unfortunately patient developed new venous thrombosis. On 10/11/2016 she was found to have extensive occlusive thrombus within the femoral popliteal, peroneal and posterior tibial as well as greater saphenous veins of the left lower extremity. Her Lovenox was increased to 80 mg every 12 hours. She was discharged home with Lovenox. On the course of her hospitalization Lovenox was held her hemoglobin has been stable. However prior to discharge to a rehabilitation center, patient attempted to hurt herself by cutting her left forearm with plastic fork. Patient is now admitted to medical psych unit. Consulted for medical management. - Suicidal ideation, depression - managed by psychiatry team - Lower GI bleed - Patient has an IVC filter in place. - Colorectal surgery no surgical recommendation. Colonoscopy not recommended at this point. Patient is to follow-up with colorectal surgeon as an outpatient. - Protonix 40 mg daily. - Will transfuse if Hgb < 7.0. - Monitor H&H. H&H stable. - Glioblastoma multiforme - Status post surgical resection. Continue Decadron 4 mg every 6 hours, Keppra 500 mg every 12 hours. - Needs to follow-up with Dr. Soto, recommended for radiation oncology to start radiation - History of Bilateral DVT - History of Pulmonary embolism -Patient is diagnosed with cancer, DVT, PE, Lovenox discussed the treatment of choice. Patient's Lovenox has previously been held secondary to GI bleed. However during hospitalization patient's H&H has been stable. She has been followed by colorectal surgeon did not recommend any further surgical treatments. Patient has been restarted on her Lovenox inpatient. - Lovenox 0.5 mg/kg every 12 hours. Will increase dose to 0.7 or 0.8 mg/kg every 12 hours if H&H continues to remain stable. HLD - Triglycerides 284, cholesterol 295, LDL 202, HDL 36.4 - ASCVD10 year risk 15.3%, recommend moderate to high intensity statin - Lipitor 40 mg daily Case management - consult for placement if cleared by psychiatry - Patient agreed to be placed back on her group home facility for rehabilitation and possibly long-term care. DVT prop IVC filter, Lovenox 0.5 mg/kg every 12 hours Written by Kassandra Roy, acting as scribe for Dr. Sy on 11/03/16 at 14: 03. All or portions of this note were transcribed by scribe [ Kassandra Roy]. I, Dr. Delma Sy personally performed the history, physical exam, and medical decision making; and confirmed the accuracy of the information in the transcribed note. Authenticated by Dr. Delma Sy on 11/03/16 at 14:33. Kassandra Schaffer Nov 03, 2016 14:04 Delma Sy MD Nov 03, 2016 14:34
--- NOTE | 2016-11-03 16:31 | HHI.HCPN ---
Reason for visit a. To assist with evaluation and management of symptoms including: Debility and confusion. b. To assist medical decision maker(s) with: better understanding of current medical conditions; weighing benefits/burdens of medical treatment options; making medical treatment decisions. . Subjective/Interval History Follow-up visit for further clarification of goals of care. Patient was seen in psychiatric floor, she was laying in her bed in no acute distress. She is awake , alert to self, place and situation. Intermittent confusion but easily reoriented. Sleepy, following commands. Endorsing mild abdominal discomfort secondary to "medication". Denies chest pain, shortness of breath, nausea/ vomiting, or diarrhea. Reports moderate poor appetite secondary to "not liking hospital food". Participating in physical therapy today, was out of bed to chair. Patient afebrile, stable BP, tolerating room air with oxygen saturation in the high 90s. No new laboratory or imaging. Patient tells me that she is ready to leave the hospital and go back to her rehabilitation facility for physical strengthening. She further tells me that she talked to her [id number] Judith and they want to proceed with radiation and chemotherapy. Patient verbalize being hopeful that her feelings of sadness will go away. . Family/friend interactions Telephone conversation with healthcare surrogate Crystal Romo. Medical update provided. Judith tells me that she is well aware of patient's poor prognosis and that the goal of therapy, to include radiation and chemotherapy, is palliative/slow the progression of disease and not curative. Judith tells me that as long as patient is wishing treatment, they will be supporting her. She tells me that they will be seeking guidance from oncology team -Dr. Soto regarding limitations of treatment or when to transition patient to comfort- directed care. Patient is to remain full code at this time. Case discussed with bedside RN and case work aide. [facility] visited patient today, pending medical clearance for discharge. . Advance Directives Living Will: Copy in medical record Health Care Surrogate: Copy in medical record Durable Power of Diffusion Operator: Completed, but not made available Advance Directive Specifics Date completed: June 29, 2015. . Health Care Surrogate(s): Healthcare surrogate Crystal Romo, alternate surrogate Garcia Romo. . Documented care wishes: Living will scanned. Standard verbiage. . Significant change in goals: Full code. Continue aggressive care. . Objective Vital Signs Date Time Temp Pulse Resp B/P Pulse Ox O2 Delivery O2 Flow Rate FiO2 11/03/16 06:01 97.6 79 18 155/89 99 11/02/16 18:49 98.0 74 16 119/79 96 Intake & Output 11/03/16 11/03/16 07:00 19:00 Intake Total 860 ml 120 ml Balance 860 ml 120 ml Intake Oral 860 ml 120 ml # Voids 2 Physical Exam CONSTITUTIONAL/GENERAL: This is an adequately nourished patient, in no apparent distress. TUBES/LINES/DRAINS: PIV's. SKIN: No jaundice, rashes, or lesions. scatter ecchymoses on upper extremities. Skin temperature appropriate. Not diaphoretic. HEAD: Atraumatic. Normocephalic. EYES: Pupils equal and round and reactive. No scleral icterus. No injection or drainage. ENT: Hearing grossly normal. Nose without bleeding or purulent drainage. Throat without visible erythema, exudates, masses, or lesions. NECK: Trachea midline. Supple. CARDIOVASCULAR: Regular rate and rhythm without murmurs, gallops, or rubs. No JVD. Peripheral pulses symmetric. RESPIRATORY/CHEST: Symmetric, unlabored respirations. Clear to auscultation. Breath sounds equal bilaterally. No wheezes, rales, or rhonchi. GASTROINTESTINAL: Abdomen soft, mildly distended, nondistended. No guarding. Bowel sounds present. GENITOURINARY: Without palpable bladder distension. MUSCULOSKELETAL: Extremities without clubbing, cyanosis, or edema. NEUROLOGICAL: Awake and alert to self, situation and place, appears of confusion but easily reoriented. Follows commands. Moves all extremities. PSYCHIATRIC: No obvious anxiety/depression. Calm. Pleasant and cooperative. . Diagnostic Tests Laboratory Laboratory Tests Test 11/02/16 06:22 Sodium Level 138 MEQ/L (136-145) Potassium Level 3.9 MEQ/L (3.5-5.1) Chloride Level 106 MEQ/L (98-107) Carbon Dioxide Level 23.4 MEQ/L (21.0-32.0) Anion Gap 9 MEQ/L (5-15) Blood Urea Nitrogen 16 MG/DL (7-18) Creatinine 0.50 MG/DL (0.50-1.00) Estimat Glomerular Filtration 121 ML/MIN Rate (>89) Random Glucose 118 MG/DL (74-106) Hemoglobin A1c 6.1 % (4.3-6.0) Calcium Level 8.5 MG/DL (8.5-10.1) Triglycerides Level 284 MG/DL (42-150) Cholesterol Level 295 MG/DL (120-200) LDL Cholesterol 202 MG/DL (0-99) HDL Cholesterol 36.4 MG/DL (40.0-60.0) Cholesterol/HDL Ratio 8.10 RATIO Result Diagram: 11/02/16 0622 Assessment and Plan Disease Oriented Problem List: (1) Rectal bleeding (2) Glioblastoma multiforme (3) Major depressive disorder, single episode Symptom Scale: (1) Confusion 0-10 Scale: Unable to quantify Comment: Confusion/delirium due to underlying medical condition. (2) Debility 0-10 Scale: Unable to quantify Comment: Progressive secondary to recent prolonged hospitalization and acute complications. Pertinent Non-Medical Issues Psychosocial: . Has 3 biological children. Spiritual: [employer]. Legal: Advance directives completed. Ethical issues impacting care: No ethical issues have been identified. . Important Contacts Healthcare surrogate -Crystal Romo [phone]. Alternate healthcare surrogate Garcia Romo . . Prognosis Mrs. Bay is a 71-year-old female with a medical history significant for glioblastoma multiform, grade 4, status post subtotal guided craniotomy for resection on 10/05/16. Clinical course complicated by bilateral PEs status post IVC placement, continued rectal bleeds, and recent hospitalizations. Overall prognosis is poor for an improved quality of life given presentation of glioblastoma, complications, hospitalizations, age and physical deconditioning. Patient is at high risk for continued decline, further complications and . . Code Status: Full Code Plan * CODE STATUS: full code. * HEALTH CARE DECISION-MAKING: Patient remains intermittently confused, likely to regain capacity. Healthcare designation secured and scanned into medical records. Healthcare surrogate Crystal Romo, alternate surrogate Garcia Romo. * GOALS OF CARE: Patient and family electing to discharge to rehabilitation/ [facility] for physical straightening when medically cleared with plans to initiate radiation/chemotherapy in the incoming days. ==Telephone conversation with healthcare surrogate Crystal Romo. Judith tells me that she is well aware of patient's poor prognosis and that the goal of therapy, to include radiation and chemotherapy, is palliative/slow the progression of disease and not curative. Judith tells me that as long as patient is wishing treatment, they will be supportive of her. She tells me that they will be seeking guidance from oncology team -Dr. Soto regarding limitations of treatment or when to transition patient to comfort-directed care. * SYMPTOMS: ==Confusion/delirium secondary to underlying medical condition. Currently under psychiatric care. Expected to improve. ==Debility: Progressive since September 2016 secondary to recent prolonged hospitalization and acute complications. Likely to return to rehabilitation for physical straightening. * Disposition: [facility] visited patient today, pending medical clearance for discharge. * Case was discussed with bedside RN and case work aide. * Palliative care contact information has been provided to healthcare surrogate. * Palliative care will continue to follow-up for further clarifications of goals of care as the clinical course evolves. . Time Spent Total Floor Time (mins): 42 (Total time to include review medical records, physical exam, telephone conversation with healthcare surrogate Judith and case discussion with bedside RN and case work aide.) >50% Counseling/Coord of Care: Yes Attestation To help prompt me to consider important information that might be impacting today's encounter and assessment, information from prior notes written by myself or my colleagues may have been "brought forward" into today's note. My signature on this note, however, is an attestation that I personally performed the exam, history, and/or decision-making noted today, and, unless otherwise indicated, the interactions with patient, family, and staff as well as the review of records all occurred today. I also attest that the listed assessment and stated plan reflect my best clinical judgment today based on the combination of historical information, prior notes, and today's exam/ interactions. When time spent is documented, it refers only to time spent today by the signer, or if indicated, combined time spent today by collaborating physician/nurse practitioner. Debbie Hooks Nov 03, 2016 16:31
[2016-11-03 19:07] VITALS: BP 149/87; PULSE 81; RESP 17; TEMP 98.2; O2SAT 96
[2016-11-03] MEDS: QUEtiapine FUMARATE 25 MG TAB PO SCH (20:09)
[2016-11-03] MEDS: ATORVASTATIN 40 MG TAB PO SCH (20:09)
[2016-11-04 06:10] VITALS: BP 128/71; PULSE 64; RESP 17; TEMP 98; O2SAT 95
[2016-11-04] MEDS: DEXAMETHASONE 4 MG TAB PO SCH ×3 (06:15→18:05)
[2016-11-04] MEDS: ENOXAPARIN SODIUM 60 MG/0.6 ML SYRINGE SQ SCH ×2 (06:15→18:06)
[2016-11-04] MEDS: VENLAFAXINE HCL XR 75 MG CAP PO SCH (09:00)
[2016-11-04] MEDS: CARVEDILOL 6.25 MG TAB PO SCH ×2 (10:10→20:58)
[2016-11-04] MEDS: DOCUSATE SODIUM 100 MG CAP PO SCH ×2 (10:10→20:59)
[2016-11-04] MEDS: POLYETHYLENE GLYCOL 17 GM PKG PO SCH (10:11)
[2016-11-04] MEDS: PANTOPRAZOLE SOD 40 MG DELAYED RELEASE TAB PO SCH (10:11)
[2016-11-04] MEDS: levETIRAcetam 500 MG TAB PO SCH ×2 (10:11→20:59)
--- NOTE | 2016-11-04 12:47 | HHI.PR ---
Subjective Remarks Follow-up visit history of glioma blastoma multiforme, status post resection, PE , lower GI bleed ,suicidal ideation. Patient seen today. Reports she is doing much better. Denies any thoughts of hurting herself. Denies pain and discomfort. Denies SOB/ dyspnea. Denies chest pain, palpitations, headaches, dizziness. Denies fevers, chills, n/v/d. Objective Vitals Vital Signs Date Time Temp Pulse Resp B/P Pulse Ox O2 Delivery O2 Flow Rate FiO2 11/04/16 06:10 98.0 64 17 128/71 95 11/03/16 19:07 98.2 81 17 149/87 96 I/O 11/03/16 11/03/16 11/03/16 11/04/16 11/04/16 11/04/16 07:00 15:00 23:00 07:00 15:00 23:00 Intake Total 860 ml 120 ml 360 ml 0 ml Balance 860 ml 120 ml 360 ml 0 ml Intake Oral 860 ml 120 ml 360 ml 0 ml # Voids 2 0 1 # Bowel Movements 0 0 Result Diagram: 11/02/16 06 Objective Remarks GENERAL: This is a well-nourished, well-developed patient, in no apparent distress. SKIN: No rashes, ecchymoses or lesions. Cool and dry. HEAD: Incision occipital area CDI. [place] have been removed. EYES: Pupils equal round and reactive. Extraocular motions intact. No scleral icterus. No injection or drainage. ENT: Nose without bleeding. Throat without erythema. Uvula midline. Airway patent. NECK: Trachea midline. No JVD or lymphadenopathy. Supple, nontender, no meningeal signs. CARDIOVASCULAR: Regular rate and rhythm without murmurs, gallops, or rubs. RESPIRATORY: Clear to auscultation. Breath sounds equal bilaterally. No wheezes , rales, or rhonchi. GASTROINTESTINAL: Abdomen soft, non-tender, nondistended. Bowel sounds active 4 MUSCULOSKELETAL: Extremities without clubbing, cyanosis, or edema. No joint tenderness, effusion, or edema noted. NEUROLOGICAL: Awake and alert. No focal neuro deficits. Motor and sensory grossly within normal limits. Normal speech. A/P Problem List: (1) Glioblastoma multiforme ICD Code: C71.9 Status: Acute (2) Adjustment disorder with depressed mood ICD Code: F43.21 Status: Acute (3) GI bleed ICD Code: K92.2 Status: Acute (4) Pulmonary embolism ICD Code: I26.99 Status: Acute (5) Anemia ICD Code: D64.9 Status: Acute (6) Major depressive disorder, single episode ICD Code: F32.9 Status: Acute Assessment and Plan Patient is a 71 year old female with primary medical history of glioblastoma multiforme, pulmonary embolism currently on Lovenox who came into the hospital secondary to persistent lower GI bleed. As per records review, she was diagnosed with glioblastoma multiforme in September 2016 she developed increasing confusion and hallucination. Imaging studies indicated a mass in the right temporal area. She underwent resection on 09/28/2016. CT thorax on showed pulmonary embolism and subsequently patient underwent IVC umbrella filter placement prior to surgery. She was receiving low-dose Lovenox following surgery but unfortunately patient developed new venous thrombosis. On 10/11/2016 she was found to have extensive occlusive thrombus within the femoral popliteal, peroneal and posterior tibial as well as greater saphenous veins of the left lower extremity. Her Lovenox was increased to 80 mg every 12 hours. She was discharged home with Lovenox. On the course of her hospitalization Lovenox was held her hemoglobin has been stable. However prior to discharge to a rehabilitation center, patient attempted to hurt herself by cutting her left forearm with plastic fork. Patient is now admitted to medical psych unit. Consulted for medical management. - Suicidal ideation, depression - managed by psychiatry team - Lower GI bleed - Patient has an IVC filter in place. - Colorectal surgery no surgical recommendation. Colonoscopy not recommended at this point. Patient is to follow-up with colorectal surgeon as an outpatient. - Protonix 40 mg daily. - Monitor H&H. H&H stable. - Glioblastoma multiforme - Status post surgical resection. Continue Decadron 4 mg every 6 hours, Keppra 500 mg every 12 hours. - Needs to follow-up with Dr. Soto, recommended for radiation oncology to start radiation. - Needs to follow-up with Dr. Wick as an outpatient, radiation oncologist - History of Bilateral DVT - History of Pulmonary embolism -Patient is diagnosed with cancer, DVT, PE, Lovenox discussed the treatment of choice. Patient's Lovenox has previously been held secondary to GI bleed. However during hospitalization patient's H&H has been stable. She has been followed by colorectal surgeon did not recommend any further surgical treatments. Patient has been restarted on her Lovenox inpatient. - Lovenox 0.5 mg/kg every 12 hours. Will increase dose to 0.7 or 0.8 mg/kg every 12 hours if H&H continues to remain stable. HLD - Triglycerides 284, cholesterol 295, LDL 202, HDL 36.4 - ASCVD10 year risk 15.3%, recommend moderate to high intensity statin - Lipitor 40 mg daily Case management - consult for placement if cleared by psychiatry - Patient agreed to be placed back on her detention facility for rehabilitation and possibly long-term care. Awaiting for insurance approval. DVT prop IVC filter, Lovenox 0.5 mg/kg every 12 hours Full code Stable from Hospitalist standpoint. Medically cleared for transfer back to detention rehabilitation facility. Written by Kassandra Roy, acting as scribe for Dr. Sy on 11/04/16 at 13: 18. All or portions of this note were transcribed by scribe [Kassandra Roy]. I, Dr. Delma Sy personally performed the history, physical exam, and medical decision making; and confirmed the accuracy of the information in the transcribed note. Authenticated by Dr. Delma Sy on 11/04/16 at 13:49. Kassandra Schaffer Nov 04, 2016 12:47 Delma Sy MD Nov 04, 2016 13:49
--- NOTE | 2016-11-04 13:07 | HHI.PYPN ---
Subjective Remarks Patient was seen for psychiatric reevaluation today, she states that she feels better and her mood is improved, however patient seems objectively depressed, very melancholy. When asked about suicidal ideation she remained silent for about 20 seconds finally denies, but she seems to be ambivalent about it. She reports improved sleep and appetite, level of energy and motivation is still low. Patient is fully oriented 3, no more episodes of confusion observed. She has been fully compliant with medications, no episodes of agitation or aggressive behavior reported. Review of Systems Other No somatic complaints Objective Alert: Yes [place]: Person, Place, Date, Situation Mood: Depressed Affect: Restricted Memory Intact: Immediate, Recent, Remote Hallucinations: Other (none) Delusions: No Delusion Type: Other (none) Suicidal: Ideation (she denies) Homicidal: Ideation (she denies) Insight/Judgement poor Vitals/IOs Vital Signs Date Time Temp Pulse Resp B/P Pulse Ox O2 Delivery O2 Flow Rate FiO2 11/04/16 06:10 98.0 64 17 128/71 95 Intake and Output 11/03/16 11/03/16 11/04/16 08:00 16:00 00:00 Intake Total 240 ml 120 ml 360 ml Balance 240 ml 120 ml 360 ml Assessment & Plan Problem List: (1) Major depressive disorder, single episode Assessment & Plan: Brief supportive psychotherapy. Continue current psychotropics at the same dose. Monitor closely behavior and mood. Needs to continue psychiatric hospitalization for stabilization and safety. ICD Code: F32.9 Assessment & Plan Estimated LOS: days Justification for Cont. Inpt. Patient has a recent suicidal attempt in the hospital, is still objectively depressed, ambivalent about suicidality, needs to continue psychiatric hospitalization for stabilization Charlie Elizabeth MD Nov 04, 2016 13:07
[2016-11-04] MEDS ORDERED: LIPI40TA PO (13:25)
[2016-11-04] MEDS ORDERED: PANT40TA3 PO (13:25)
[2016-11-04 19:00] VITALS: BP 122/77; PULSE 63; RESP 17; TEMP 97.9; O2SAT 97
[2016-11-04] MEDS: ATORVASTATIN 40 MG TAB PO SCH (20:59)
[2016-11-04] MEDS: QUEtiapine FUMARATE 25 MG TAB PO SCH (20:59)
[2016-11-05] MEDS: ENOXAPARIN SODIUM 60 MG/0.6 ML SYRINGE SQ SCH ×2 (05:00→17:43)
[2016-11-05] MEDS: DEXAMETHASONE 4 MG TAB PO SCH ×4 (06:00→17:42)
[2016-11-05 06:33] VITALS: BP 139/77; PULSE 74; RESP 17; TEMP 97.5; O2SAT 97
[2016-11-05] MEDS: levETIRAcetam 500 MG TAB PO SCH ×2 (08:24→20:48)
[2016-11-05] MEDS: CARVEDILOL 6.25 MG TAB PO SCH ×2 (08:24→20:48)
[2016-11-05] MEDS: DOCUSATE SODIUM 100 MG CAP PO SCH ×2 (08:24→20:48)
[2016-11-05] MEDS: PANTOPRAZOLE SOD 40 MG DELAYED RELEASE TAB PO SCH (08:24)
[2016-11-05] MEDS: VENLAFAXINE HCL XR 75 MG CAP PO SCH (08:25)
[2016-11-05] MEDS: POLYETHYLENE GLYCOL 17 GM PKG PO SCH (08:25)
--- NOTE | 2016-11-05 11:45 | HHI.PR ---
Objective Vitals Vital Signs Date Time Temp Pulse Resp B/P Pulse Ox O2 Delivery O2 Flow Rate FiO2 11/05/16 06:33 97.5 74 17 139/77 97 11/04/16 19:00 97.9 63 17 122/77 97 I/O 11/04/16 11/04/16 11/04/16 11/05/16 11/05/16 11/05/16 07:00 15:00 23:00 07:00 15:00 23:00 Intake Total 0 ml 480 ml 480 ml 240 ml 240 ml Balance 0 ml 480 ml 480 ml 240 ml 240 ml Intake Oral 0 ml 480 ml 480 ml 240 ml 240 ml # Voids 1 2 2 1 # Bowel Movements 0 0 0 Result Diagram: 11/02/16 06 Objective Remarks GENERAL: This is a well-nourished, well-developed patient, in no apparent distress. SKIN: No rashes, ecchymoses or lesions. Cool and dry. HEAD: Incision occipital area CDI. [place] have been removed. EYES: Pupils equal round and reactive. Extraocular motions intact. No scleral icterus. No injection or drainage. ENT: Nose without bleeding. Throat without erythema. Uvula midline. Airway patent. NECK: Trachea midline. No JVD or lymphadenopathy. Supple, nontender, no meningeal signs. CARDIOVASCULAR: Regular rate and rhythm without murmurs, gallops, or rubs. RESPIRATORY: Clear to auscultation. Breath sounds equal bilaterally. No wheezes , rales, or rhonchi. GASTROINTESTINAL: Abdomen soft, non-tender, nondistended. Bowel sounds active 4 MUSCULOSKELETAL: Extremities without clubbing, cyanosis, or edema. No joint tenderness, effusion, or edema noted. NEUROLOGICAL: Awake and alert. No focal neuro deficits. Motor and sensory grossly within normal limits. Normal speech. A/P Problem List: (1) Glioblastoma multiforme ICD Code: C71.9 Status: Acute (2) Adjustment disorder with depressed mood ICD Code: F43.21 Status: Acute (3) GI bleed ICD Code: K92.2 Status: Acute (4) Pulmonary embolism ICD Code: I26.99 Status: Acute (5) Anemia ICD Code: D64.9 Status: Acute (6) Major depressive disorder, single episode ICD Code: F32.9 Status: Acute Assessment and Plan Patient is a 71 year old female with primary medical history of glioblastoma multiforme, pulmonary embolism currently on Lovenox who came into the hospital secondary to persistent lower GI bleed. As per records review, she was diagnosed with glioblastoma multiforme in September 2016 she developed increasing confusion and hallucination. Imaging studies indicated a mass in the right temporal area. She underwent resection on 09/28/2016. CT thorax on showed pulmonary embolism and subsequently patient underwent IVC umbrella filter placement prior to surgery. She was receiving low-dose Lovenox following surgery but unfortunately patient developed new venous thrombosis. On 10/11/2016 she was found to have extensive occlusive thrombus within the femoral popliteal, peroneal and posterior tibial as well as greater saphenous veins of the left lower extremity. Her Lovenox was increased to 80 mg every 12 hours. She was discharged home with Lovenox. On the course of her hospitalization Lovenox was held her hemoglobin has been stable. However prior to discharge to a rehabilitation center, patient attempted to hurt herself by cutting her left forearm with plastic fork. Patient is now admitted to medical psych unit. Consulted for medical management. - Suicidal ideation, depression - managed by psychiatry team - Lower GI bleed - Patient has an IVC filter in place. - Colorectal surgery no surgical recommendation. Colonoscopy not recommended at this point. Patient is to follow-up with colorectal surgeon as an outpatient. - Protonix 40 mg daily. - Monitor H&H. H&H stable. - Glioblastoma multiforme - Status post surgical resection. Continue Decadron 4 mg every 6 hours, Keppra 500 mg every 12 hours. - Needs to follow-up with Dr. Soto, recommended for radiation oncology to start radiation. - Needs to follow-up with Dr. Wick as an outpatient, radiation oncologist - History of Bilateral DVT - History of Pulmonary embolism -Patient is diagnosed with cancer, DVT, PE, Lovenox discussed the treatment of choice. Patient's Lovenox has previously been held secondary to GI bleed. However during hospitalization patient's H&H has been stable. She has been followed by colorectal surgeon did not recommend any further surgical treatments. Patient has been restarted on her Lovenox inpatient. - Lovenox 0.5 mg/kg every 12 hours. Will increase dose to 0.7 or 0.8 mg/kg every 12 hours if H&H continues to remain stable. HLD - Triglycerides 284, cholesterol 295, LDL 202, HDL 36.4 - ASCVD10 year risk 15.3%, recommend moderate to high intensity statin - Lipitor 40 mg daily Case management - consult for placement if cleared by psychiatry - Patient agreed to be placed back on her group home facility for rehabilitation and possibly long-term care. Awaiting for insurance approval. DVT prop IVC filter, Lovenox 0.5 mg/kg every 12 hours Full code Stable from Hospitalist standpoint. Medically cleared for transfer back to group home rehabilitation facility. Written by Kassandra Roy, acting as scribe for Dr. Sy on 11/04/16 at 13:18. Kassandra Schaffer Nov 05, 2016 11:45 Kaushik Arce MD Nov 05, 2016 17:57
--- NOTE | 2016-11-05 13:14 | HHI.PR ---
Subjective Remarks Follow-up visit history of glioma blastoma multiforme, status post resection, PE , lower GI bleed ,suicidal ideation. Patient seen today. Reports she is doing okay. Denies any thoughts of hurting herself. Denies pain and discomfort. Denies SOB/ dyspnea. Denies chest pain, palpitations, headaches, dizziness. Denies fevers, chills, n/v/d. Objective Vitals Vital Signs Date Time Temp Pulse Resp B/P Pulse Ox O2 Delivery O2 Flow Rate FiO2 11/05/16 06:33 97.5 74 17 139/77 97 11/04/16 19:00 97.9 63 17 122/77 97 I/O 11/04/16 11/04/16 11/04/16 11/05/16 11/05/16 11/05/16 07:00 15:00 23:00 07:00 15:00 23:00 Intake Total 0 ml 480 ml 480 ml 240 ml 480 ml Balance 0 ml 480 ml 480 ml 240 ml 480 ml Intake Oral 0 ml 480 ml 480 ml 240 ml 480 ml # Voids 1 2 2 1 # Bowel Movements 0 0 0 Result Diagram: 11/02/16621 Objective Remarks GENERAL: This is a well-nourished, well-developed patient, in no apparent distress. SKIN: No rashes, ecchymoses or lesions. Cool and dry. HEAD: Incision occipital area CDI. [place] have been removed. EYES: Pupils equal round and reactive. Extraocular motions intact. No scleral icterus. No injection or drainage. ENT: Nose without bleeding. Throat without erythema. Uvula midline. Airway patent. NECK: Trachea midline. No JVD or lymphadenopathy. Supple, nontender, no meningeal signs. CARDIOVASCULAR: Regular rate and rhythm without murmurs, gallops, or rubs. RESPIRATORY: Clear to auscultation. Breath sounds equal bilaterally. No wheezes , rales, or rhonchi. GASTROINTESTINAL: Abdomen soft, non-tender, nondistended. Bowel sounds active 4 MUSCULOSKELETAL: Extremities without clubbing, cyanosis, or edema. No joint tenderness, effusion, or edema noted. NEUROLOGICAL: Awake and alert. No focal neuro deficits. Motor and sensory grossly within normal limits. Normal speech. A/P Problem List: (1) Glioblastoma multiforme ICD Code: C71.9 Status: Acute (2) Adjustment disorder with depressed mood ICD Code: F43.21 Status: Acute (3) GI bleed ICD Code: K92.2 Status: Acute (4) Pulmonary embolism ICD Code: I26.99 Status: Acute (5) Anemia ICD Code: D64.9 Status: Acute (6) Major depressive disorder, single episode ICD Code: F32.9 Status: Acute Assessment and Plan Patient is a 71 year old female with primary medical history of glioblastoma multiforme, pulmonary embolism currently on Lovenox who came into the hospital secondary to persistent lower GI bleed. As per records review, she was diagnosed with glioblastoma multiforme in September 2016 she developed increasing confusion and hallucination. Imaging studies indicated a mass in the right temporal area. She underwent resection on 09/28/2016. CT thorax on showed pulmonary embolism and subsequently patient underwent IVC umbrella filter placement prior to surgery. She was receiving low-dose Lovenox following surgery but unfortunately patient developed new venous thrombosis. On 10/11/2016 she was found to have extensive occlusive thrombus within the femoral popliteal, peroneal and posterior tibial as well as greater saphenous veins of the left lower extremity. Her Lovenox was increased to 80 mg every 12 hours. She was discharged home with Lovenox. On the course of her hospitalization Lovenox was held her hemoglobin has been stable. However prior to discharge to a rehabilitation center, patient attempted to hurt herself by cutting her left forearm with plastic fork. Patient is now admitted to medical psych unit. Consulted for medical management. - Suicidal ideation, depression - managed by psychiatry team - Lower GI bleed - Patient has an IVC filter in place. - Colorectal surgery no surgical recommendation. Colonoscopy not recommended at this point. Patient is to follow-up with colorectal surgeon as an outpatient. - Protonix 40 mg daily. - Monitor H&H. H&H stable. - Glioblastoma multiforme - Status post surgical resection. Continue Decadron 4 mg every 6 hours, Keppra 500 mg every 12 hours. - Needs to follow-up with Dr. Soto, recommended for radiation oncology to start radiation. - Needs to follow-up with Dr. Wick as an outpatient, radiation oncologist - History of Bilateral DVT - History of Pulmonary embolism -Patient is diagnosed with cancer, DVT, PE, Lovenox discussed the treatment of choice. Patient's Lovenox has previously been held secondary to GI bleed. However during hospitalization patient's H&H has been stable. She has been followed by colorectal surgeon did not recommend any further surgical treatments. Patient has been restarted on her Lovenox inpatient. - Lovenox 0.5 mg/kg every 12 hours. Will increase dose to 0.7 or 0.8 mg/kg every 12 hours if H&H continues to remain stable. HLD - Triglycerides 284, cholesterol 295, LDL 202, HDL 36.4 - ASCVD10 year risk 15.3%, recommend moderate to high intensity statin - Lipitor 40 mg daily Case management - consult for placement if cleared by psychiatry - Patient agreed [facility] and possibly long-term care. Awaiting for insurance approval. DVT prop IVC filter, Lovenox 0.5 mg/kg every 12 hours Full code Stable from Hospitalist standpoint. Medically cleared for [facility] to [facility]. Written by Kassandra Roy, acting as scribe for Dr. Arce on 11/05/16 at 13:13. All or portions of this note were transcribed by scribe Kassandra Roy. I, Dr. Kaushik Arce personally performed the history, physical exam, and medical decision making; and confirmed the accuracy of the information in the transcribed note. Authenticated by Dr. Kaushik Arce on 11/05/16 at 17:58. Kassandra Schaffer Nov 05, 2016 13:14 Kaushik Arce MD Nov 05, 2016 17:59
--- NOTE | 2016-11-05 13:18 | HHI.PYPN ---
Subjective Remarks Patient seen in weekend coverage. Chart reviewed. Case discussed with nursing staff. No behavioral problems noted. On my examination today, the patient reports that she slept fairly well overnight. Mood is reportedly fair although affect remains somewhat restricted and dysphoric. Denies any suicidal or homicidal ideation. Denies any side effects from medications. Review of Systems ROS Limitations: Poor Historian Except as stated in HPI: all other systems reviewed are Neg Objective Alert: Yes [place]: Person (oriented 3) Mood: Calm Affect: Restricted (ssomewhat dysphoric and inconsistent with stated mood) Memory Intact: Comment (not formally assessed) Hallucinations: Other (no AVH) Delusions: No Delusion Type: Other (no delusions) Suicidal: Ideation (denies SI) Homicidal: Ideation (ddenies HI) Insight/Judgement Poor Remarks No motor abnormalities noted Labs Labs reviewed. Vitals/IOs Vital Signs Date Time Temp Pulse Resp B/P Pulse Ox O2 Delivery O2 Flow Rate FiO2 11/05/16 06:33 97.5 74 17 139/77 97 Intake and Output 11/04/16 11/04/16 11/05/16 08:00 16:00 00:00 Intake Total 0 ml 480 ml 480 ml Balance 0 ml 480 ml 480 ml Assessment & Plan Problem List: (1) Major depressive disorder, single episode ICD Code: F32.9 Assessment & Plan Continue current psychiatric medications as ordered. Appreciate ongoing hospitalist input. Continue to monitor on the inpatient unit. Continue other medications and care as ordered. Justification for Cont. Inpt. Monitoring for impairments in safety. complicating conditions. Discharge Planning Per Benitez Oliveira MD Nov 05, 2016 13:18
[2016-11-05 17:49] VITALS: BP 121/76; PULSE 65; RESP 17; TEMP 97.4; O2SAT 95
[2016-11-05] MEDS: ATORVASTATIN 40 MG TAB PO SCH (20:47)
[2016-11-05] MEDS: QUEtiapine FUMARATE 25 MG TAB PO SCH (20:48)
[2016-11-06] MEDS: ENOXAPARIN SODIUM 60 MG/0.6 ML SYRINGE SQ SCH ×2 (05:00→17:30)
[2016-11-06] MEDS: DEXAMETHASONE 4 MG TAB PO SCH ×4 (05:19→17:30)
[2016-11-06 05:40] VITALS: BP 129/75; PULSE 59; RESP 14; TEMP 97.8; O2SAT 98
[2016-11-06] MEDS: VENLAFAXINE HCL XR 75 MG CAP PO SCH (09:00)
[2016-11-06] MEDS: POLYETHYLENE GLYCOL 17 GM PKG PO SCH (09:00)
[2016-11-06] MEDS: levETIRAcetam 500 MG TAB PO SCH ×2 (09:33→20:26)
[2016-11-06] MEDS: PANTOPRAZOLE SOD 40 MG DELAYED RELEASE TAB PO SCH (09:33)
[2016-11-06] MEDS: CARVEDILOL 6.25 MG TAB PO SCH ×2 (09:34→20:27)
[2016-11-06] MEDS: DOCUSATE SODIUM 100 MG CAP PO SCH ×2 (09:34→20:26)
--- NOTE | 2016-11-06 12:00 | HHI.PR ---
Subjective Remarks Follow-up visit history of glioma blastoma multiforme, status post resection, PE , lower GI bleed ,suicidal ideation. Patient seen today. Reports she is doing okay. Denies SI/HI. Denies pain and discomfort. Denies SOB/ dyspnea. Denies chest pain, palpitations, headaches, dizziness. Denies fevers, chills, n/ v/d. Objective Vitals Vital Signs Date Time Temp Pulse Resp B/P Pulse Ox O2 Delivery O2 Flow Rate FiO2 11/06/16 05:40 97.8 59 14 129/75 98 11/05/16 17:49 97.4 65 17 121/76 95 I/O 11/05/16 11/05/16 11/05/16 11/06/16 11/06/16 11/06/16 07:00 15:00 23:00 07:00 15:00 23:00 Intake Total 240 ml 960 ml 720 ml 240 ml Balance 240 ml 960 ml 720 ml 240 ml Intake Oral 240 ml 960 ml 720 ml 240 ml # Voids 1 5 # Bowel Movements 0 0 Result Diagram: 11/02/16 0622 Objective Remarks GENERAL: This is a well-nourished, well-developed patient, in no apparent distress. SKIN: No rashes, ecchymoses or lesions. Cool and dry. HEAD: Incision occipital area CDI. [place] have been removed. EYES: Pupils equal round and reactive. No scleral icterus. No injection or drainage. ENT: Nose without bleeding. Throat without erythema. Uvula midline. Airway patent. NECK: Trachea midline. No JVD or lymphadenopathy. Supple. CARDIOVASCULAR: Regular rate and rhythm without murmurs, gallops, or rubs. RESPIRATORY: Clear to auscultation. Breath sounds equal bilaterally. No wheezes , rales, or rhonchi. GASTROINTESTINAL: Abdomen soft, non-tender, nondistended. Bowel sounds active 4 MUSCULOSKELETAL: Extremities without clubbing, cyanosis, or edema. No joint tenderness, effusion, or edema noted. NEUROLOGICAL: Awake and alert. No focal neuro deficits. Motor and sensory grossly within normal limits. Normal speech. A/P Problem List: (1) Glioblastoma multiforme ICD Code: C71.9 Status: Acute (2) Adjustment disorder with depressed mood ICD Code: F43.21 Status: Acute (3) GI bleed ICD Code: K92.2 Status: Acute (4) Pulmonary embolism ICD Code: I26.99 Status: Acute (5) Anemia ICD Code: D64.9 Status: Acute (6) Major depressive disorder, single episode ICD Code: F32.9 Status: Acute Assessment and Plan Patient is a 71 year old female with primary medical history of glioblastoma multiforme, pulmonary embolism currently on Lovenox who came into the hospital secondary to persistent lower GI bleed. As per records review, she was diagnosed with glioblastoma multiforme in September 2016 she developed increasing confusion and hallucination. Imaging studies indicated a mass in the right temporal area. She underwent resection on 09/28/2016. CT thorax on showed pulmonary embolism and subsequently patient underwent IVC umbrella filter placement prior to surgery. She was receiving low-dose Lovenox following surgery but unfortunately patient developed new venous thrombosis. On 10/11/2016 she was found to have extensive occlusive thrombus within the femoral popliteal, peroneal and posterior tibial as well as greater saphenous veins of the left lower extremity. Her Lovenox was increased to 80 mg every 12 hours. She was discharged home with Lovenox. On the course of her hospitalization Lovenox was held her hemoglobin has been stable. However prior to discharge to a rehabilitation center, patient attempted to hurt herself by cutting her left forearm with plastic fork. Patient is now admitted to medical psych unit. Consulted for medical management. - Suicidal ideation, depression - managed by psychiatry team - Lower GI bleed - Patient has an IVC filter in place. - Colorectal surgery no surgical recommendation. Colonoscopy not recommended at this point. Patient is to follow-up with colorectal surgeon as an outpatient. - Protonix 40 mg daily. - Monitor H&H. H&H stable. - Glioblastoma multiforme - Status post surgical resection. Continue Decadron 4 mg every 6 hours, Keppra 500 mg every 12 hours. - Needs to follow-up with Dr. Soto, recommended for radiation oncology to start radiation. - Needs to follow-up with Dr. Wick as an outpatient, radiation oncologist - History of Bilateral DVT - History of Pulmonary embolism -Patient is diagnosed with cancer, DVT, PE, Lovenox discussed the treatment of choice. Patient's Lovenox has previously been held secondary to GI bleed. However during hospitalization patient's H&H has been stable. She has been followed by colorectal surgeon did not recommend any further surgical treatments. Patient has been restarted on her Lovenox inpatient. - Lovenox 0.5 mg/kg every 12 hours. Will increase dose to 0.7 or 0.8 mg/kg every 12 hours if H&H continues to remain stable. HLD - Triglycerides 284, cholesterol 295, LDL 202, HDL 36.4 - ASCVD10 year risk 15.3%, recommend moderate to high intensity statin - Lipitor 40 mg daily Case management - consult for placement if cleared by psychiatry - Patient agreed to be [facility] back on her [facility] facility for rehabilitation and possibly long-term care. Awaiting for insurance approval. DVT prop IVC filter, Lovenox 0.5 mg/kg every 12 hours Full code Stable from Hospitalist standpoint. Medically cleared for transfer back to [facility]. Written by Kassandra Roy, acting as scribe for Dr. Arce on 11/06/16 at 12:00. All or portions of this note were transcribed by scribe Kassandra Roy. I, Dr. Kaushik Arce personally performed the history, physical exam, and medical decision making; and confirmed the accuracy of the information in the transcribed note. Authenticated by Dr. Kaushik Arce on 11/06/16 at 14:55. Kassandra Schaffer Nov 06, 2016 12:00 Kaushik Arce MD Nov 06, 2016 14:55
--- NOTE | 2016-11-06 13:56 | HHI.PYPN ---
Subjective Remarks Patient seen and examined in weekend coverage. Chart reviewed. Case discussed with nursing staff. No behavioral issues noted. On my examination today, patient reports mood is fair. No SI or HI voiced. Denies side effects from medications. No other complaints. Review of Systems Except as stated in HPI: all other systems reviewed are Neg Objective Alert: Yes [place]: Person, Place (at least) Mood: Calm Affect: Blunted Memory Intact: Comment (not formally assessed) Hallucinations: Other (none) Delusions: No Delusion Type: Other (no delusional material) Suicidal: Ideation (no SI) Homicidal: Ideation (no HI) Insight/Judgement Poor Remarks No motor abnormalities noted Labs Labs reviewed. No new labs. Vitals/IOs Vital Signs Date Time Temp Pulse Resp B/P Pulse Ox O2 Delivery O2 Flow Rate FiO2 11/06/16 05:40 97.8 59 14 129/75 98 Intake and Output 11/05/16 11/05/16 11/06/16 08:00 16:00 00:00 Intake Total 240 ml 960 ml 480 ml Balance 240 ml 960 ml 480 ml Assessment & Plan Problem List: (1) Major depressive disorder, single episode ICD Code: F32.9 Assessment & Plan Continue current psychotropics as ordered. Continue to monitor on the inpatient unit. I note that hospitalist has cleared the patient for discharge back to facility. Justification for Cont. Inpt. Risk for decompensation Discharge Planning Per Benitez Oliveira MD Nov 06, 2016 13:56
[2016-11-06 16:00] VITALS: BP 129/63; PULSE 95; RESP 17; TEMP 98.7; O2SAT 100
[2016-11-06] MEDS: QUEtiapine FUMARATE 25 MG TAB PO SCH (20:26)
[2016-11-06] MEDS: ATORVASTATIN 40 MG TAB PO SCH (20:27)
[2016-11-07] MEDS: DEXAMETHASONE 4 MG TAB PO SCH ×4 (00:05→18:23)
[2016-11-07] MEDS: ENOXAPARIN SODIUM 60 MG/0.6 ML SYRINGE SQ SCH ×2 (05:00→18:23)
[2016-11-07 05:34] VITALS: BP 97/57; PULSE 62; RESP 15; TEMP 97.9; O2SAT 97
[2016-11-07] MEDS: levETIRAcetam 500 MG TAB PO SCH (08:53)
[2016-11-07] MEDS: PANTOPRAZOLE SOD 40 MG DELAYED RELEASE TAB PO SCH (08:53)
[2016-11-07] MEDS: DOCUSATE SODIUM 100 MG CAP PO SCH (08:53)
[2016-11-07] MEDS: POLYETHYLENE GLYCOL 17 GM PKG PO SCH (08:57)
[2016-11-07] MEDS: VENLAFAXINE HCL XR 75 MG CAP PO SCH (08:57)
[2016-11-07] MEDS: CARVEDILOL 6.25 MG TAB PO SCH (08:58)
[2016-11-07] MEDS ORDERED: VENL75XR PO (12:14)
[2016-11-07] MEDS ORDERED: QUET1TAB7 PO (12:14)
--- NOTE | 2016-11-07 12:26 | HHI.DS ---
Psychiatry Discharge Summary Inpatient Psychiatric care?: Yes Advance Directive: No Mental Health AdvanceDirective: Yes Health Care Proxy: Yes Admission Admission Date Nov 01, 2016 at 15:00 Admission Diagnosis: (1) Major depressive disorder, single episode ICD Code: F32.9 Brief History 10/31/2016 The patient is a 71-year-old woman, domiciled alone in [place], single, retired, without any previous psychiatric history, no psychiatric hospitalizations, no previous suicidal attempts, with significant medical history of glioblastoma multiforme and pulmonary embolism currently on Lovenox who presented to the emergency department due to persistent lower GI bleed. Patient reports that since September 19, 2016 she has been having off and on lower GI bleed. She was recently admitted to the hospital for similar symptoms as well as fecal impaction. Colorectal surgery evaluated her during the last admission. Patient was discharged on 10/26/2016 and was continued on Lovenox. She was diagnosed with glioblastoma multiforme in September 2016 when she developed increasing confusion and hallucinations. Imaging studies indicated a mass in the right temporal area. She underwent resection on 2016. CT thorax on 09/25/2016 showed pulmonary embolism and subsequently patient underwent IVC umbrella filter placement prior to surgery. Patient has been presenting altered mental status, with on and off lucidity during this hospitalizations, this morning she cut herself with a knife in the left wrist because she felt that she is impersonated and she is not getting enough attention. Patient was consulted to psychiatry to assess potential suicidal ideation in her gesture. On psychiatric evaluation patient is calm, but just superficially cooperative, she seems to be confused, with poor reality lucidity. Her foxcimkx-zf-gzq Crystal Forbes, who was sitting down in her side was used as a collateral information to complete psychiatric assessment. The patient was able to state that she has been frustrated, because she wants to go home. She says that her life has been very traumatic, but nothing feels like being in the hospital without attention and without clear communication of what is happening. Patient states that she did not wanted to commit suicide but she wanted everybody to no that she was overwhelmed and frustrated. At this moment she denies suicidal ideation, and she says that she is committed to continue her medical treatment, recommendations and get better, she says that she has hope that it will happen. She does endorse sadness, low appetite, low energy, problems sleeping at night, anxiety during the day, disrupted thoughts about the side effects of chemotherapy and radiotherapy. Patient is oriented in person time and place, she seems to understand the reason of her hospitalization , she can list her medical problems, understanding importance of her treatment and follow-up recommendation. Her njqlftgg-ik-ego adds that the patient has been entrapped in the system already twice. She says that the patient was 3 days in the ER without a clear communication of the reason of her hospitalization. She says that the patient is a very strict person who likes to be on control of herself stuffs. She does not think that the patient wanted to commit suicide, she thinks that the patient has been confused and very anxious. Patient denies the use of alcohol and drugs. 10/22/2016 Patient was seen today for psychiatric reevaluation, she was in her bed sitting quietly, she is states that today she feels a little better than yesterday, however confused about her medical situation, feeling entrapped in the vicious [place], patient says that her motivation is very low, that she feels very empty, pessimistic about her future. She reports better sleep last night, she denies suicidal or homicidal ideation, she denies visual and auditory hallucinations. When she was confronted about her suicidal attempt yesterday she says that she is not sure what she wanted "most probably was just a called for attention and a cry for help". Patient is fully oriented 3, however at times she seems to be confused and distant. No agitation or aggressive behavior reported. Today patient seen for psychiatric reevaluation along with nurse in charge Andrzej Sherman and AUBREE Parks, patient stated that she continues to be depressed due to the limited time that she has to live, but also to the confusion of what she has to do and the next step for her radiation and chemotherapy. Patient says that she is very confused because she doesn't know if treatment is really worth it. She also states that she prefers to go home and , but at the same time her significant family members want her to fight and she doesn't want to disappoint them. Patient reports feelings of worthlessness, low energy, hopelessness, helplessness, sadness about her situation, and suicidal thoughts, no plan. She says that 2 days ago her suicidal attempt by cutting with a knife in her room in the medical floor was mostly a cry of help and desperation. Patient reports improved sleep since she is on Seroquel. She denies homicidal ideation, she denies visual and auditory hallucinations. Patient is oriented 3 , no confusion, no fluctuation of consciousness, no delusions, no paranoia, no aggressive behavior or agitation observed. Patient agrees to re-meet with palliative care, oncology, her family in order to create a plan for her and see what is the best. 11/03/16 Above note dictated by Dr. Leyva reviewed and agreed with. Patient is a 71- year-old white female admitted to Dr. Leyva service under the Carter act. Patient seen by me with nurse, patient depressed somewhat confused and delusional. Stating she has stage IV cancer but that she does not want to like mali ruiz. Dr. Leyva has signed first opinion petition supporting Carter act. I agree. Patient meets criteria for involuntary psychiatric hospitalization under the Carter act. Thus I will cosign second opinion petition supporting Carter act Tobacco Use In Past 30 Days: No Tobacco Past 30 Days Alcohol Use: Never Hospital Course Patient was brought to the med psych unit from the medical floor when she was hospitalized due to GI bleeding. Patient has medical history of GBM and will be starting chemiotherapy and radiotherapy in the next weeks. On the medical floor patient tried to commit suicide by self cutting with a plastic knife in her left arm and she was consulted to psychiatry. First psychiatric evaluation was performed in the floor and due to depressive symptoms patient was recommended to be transferred to med psych. On initial evaluation in the [facility] patient endorsed depressive symptoms related with current underlying medical situation and frustration with with the length of hospitalization and medical process. Patient was immediately started on individual, group psychotherapy, she had a full psychiatric and psychosocial assessment, and she was started in psychotropics for depression while continuing her medical care. Patient showed a significant rapidly responsive to psychotropics and psychotherapy. On the psychiatric unit she remained calm, cooperative and most of the time pleasant, without any episodes of agitation or aggressive behavior. Family meeting was performed over the phone with her son-in-law and appointed healthcare by proxy. Since the beginning they agreed with psychiatric hospitalization. As the patient became stable in her mood, discharge plans to subacute rehabilitation facility was started. Finally, at the moment of discharge patient is much stable, motivated to continue her medical and psychiatric treatment in outpatient basis. She denies suicidal and homicidal ideation, she denies visual and auditory hallucinations. Patient has remained fully compliant with medication, with no significant side effects. Results Blood Pressure 97 / 57 Vital Signs Date Time Temp Pulse Resp B/P Pulse Ox O2 Delivery O2 Flow Rate FiO2 11/07/16 05:34 97.9 62 15 97/57 97 Reviewed Summary of Procedures None Pending results at discharge: No Medications # of Antipsychotic meds at D/C: 0 Approp Antipsych med options 1 - Minimum of three failed multiple trials of monotherapy. 2 - Documented plan to taper to monotherapy due to previous use of multiple meds OR cross-taper in progress at D/C. 3 - Documentation of augmentation of Clozapine. 4 - Justification other than those listed in allowable values 1-3, document here : Discharge Discharge Date: Nov 07, 2016 Discharge Diagnosis: (1) Major depressive disorder, single episode Diagnosis: Principal ICD Code: F32.9 Mental Status Exam at Disch woman, [facility], good hygiene, age appearing, calm, cooperative and pleasant. Her speech is fluent and is sometimes. Her mood is euthymic. Her affect is appropriate. Her thought processes logical, coherent and relevant. Her thought content devoid of SI/HI/AVH/VH, no paranoia or delusions observed. Her judgment, impulse control, insight is improved. Memory is intact.. Pt Condition on Discharge: Stable Discharge Disposition: Discharge to SNF Discharge Instructions Diet Instructions: Heart Healthy Diet Activities you can perform: Weight Bearing as Guy Scheduled Appointment: Discharge Time > 30 minutes Discharge/Advance Care Plan Health Problems: (1) Major depressive disorder, single episode Goals to promote your health * To prevent worsening of your condition and complications * To maintain your health at the optimal level Directions to meet your goals Take your medications as prescribed Follow your dietary instruction Follow activity as directed Keep your appointments as scheduled Take your immunizations and boosters as scheduled If your symptoms worsen call your PCP, if no PCP go to Urgent Care Center or Emergency Room For 27/02 questions related to your inpatient stay or results of tests pending at discharge, please contact Dr. Charlie Elizabeth at Smoking is Dangerous to Your Health. Avoid second hand smoking Charlie Elizabeth MD Nov 07, 2016 12:26
--- NOTE | 2016-11-07 12:41 | HHI.PR ---
Subjective Remarks Follow-up visit history of glioma blastoma multiforme, status post resection, PE , lower GI bleed ,suicidal ideation. Patient seen today. Reports she is tired. Denies SI/HI. Denies pain and discomfort. Denies SOB/ dyspnea. Denies chest pain, palpitations, headaches, dizziness. Denies fevers, chills, n/ v/d. Objective Vitals Vital Signs Date Time Temp Pulse Resp B/P Pulse Ox O2 Delivery O2 Flow Rate FiO2 11/07/16 05:34 97.9 62 15 97/57 97 11/06/16 16:00 98.7 95 17 129/63 100 I/O 11/06/16 11/06/16 11/06/16 11/07/16 11/07/16 11/07/16 07:00 15:00 23:00 07:00 15:00 23:00 Intake Total 720 ml 360 ml 720 ml 240 ml 210 ml Balance 720 ml 360 ml 720 ml 240 ml 210 ml Intake Oral 720 ml 360 ml 720 ml 240 ml 210 ml # Voids 5 6 # Bowel Movements 0 2 Objective Remarks GENERAL: This is a well-nourished, well-developed patient, in no apparent distress. SKIN: No rashes, ecchymoses or lesions. Cool and dry. HEAD: Incision occipital area CDI. Vidal have been removed. EYES: Pupils equal round and reactive. No scleral icterus. No injection or drainage. ENT: Nose without bleeding. Throat without erythema. Uvula midline. Airway patent. NECK: Trachea midline. No JVD or lymphadenopathy. Supple. CARDIOVASCULAR: Regular rate and rhythm without murmurs, gallops, or rubs. RESPIRATORY: Clear to auscultation. Breath sounds equal bilaterally. No wheezes , rales, or rhonchi. GASTROINTESTINAL: Abdomen soft, non-tender, nondistended. Bowel sounds active 4 MUSCULOSKELETAL: Extremities without clubbing, cyanosis, or edema. No joint tenderness, effusion, or edema noted. NEUROLOGICAL: Awake and alert. No focal neuro deficits. Motor and sensory grossly within normal limits. Normal speech. A/P Problem List: (1) Glioblastoma multiforme ICD Code: C71.9 Status: Acute (2) Adjustment disorder with depressed mood ICD Code: F43.21 Status: Acute (3) GI bleed ICD Code: K92.2 Status: Acute (4) Pulmonary embolism ICD Code: I26.99 Status: Acute (5) Anemia ICD Code: D64.9 Status: Acute (6) Major depressive disorder, single episode ICD Code: F32.9 Status: Acute Assessment and Plan Patient is a 71 year old female with primary medical history of glioblastoma multiforme, pulmonary embolism currently on Lovenox who came into the hospital secondary to persistent lower GI bleed. As per records review, she was diagnosed with glioblastoma multiforme in September 2016 she developed increasing confusion and hallucination. Imaging studies indicated a mass in the right temporal area. She underwent resection on 09/28/2016. CT thorax on showed pulmonary embolism and subsequently patient underwent IVC umbrella filter placement prior to surgery. She was receiving low-dose Lovenox following surgery but unfortunately patient developed new venous thrombosis. On 10/11/2016 she was found to have extensive occlusive thrombus within the femoral popliteal, peroneal and posterior tibial as well as greater saphenous veins of the left lower extremity. Her Lovenox was increased to 80 mg every 12 hours. She was discharged home with Lovenox. On the course of her hospitalization Lovenox was held her hemoglobin has been stable. However prior to discharge to a rehabilitation center, patient attempted to hurt herself by cutting her left forearm with plastic fork. Patient is now admitted to medical psych unit. Consulted for medical management. - Suicidal ideation, depression - managed by psychiatry team - Lower GI bleed - Patient has an IVC filter in place. - Colorectal surgery no surgical recommendation. Colonoscopy not recommended at this point. Patient is to follow-up with colorectal surgeon as an outpatient. - Protonix 40 mg daily. - Monitor H&H. H&H stable. - Glioblastoma multiforme - Status post surgical resection. Continue Decadron 4 mg every 6 hours, Keppra 500 mg every 12 hours. - Needs to follow-up with Dr. Soto, recommended for radiation oncology to start radiation. - Needs to follow-up with Dr. Wick as an outpatient, radiation oncologist - History of Bilateral DVT - History of Pulmonary embolism -Patient is diagnosed with cancer, DVT, PE, Lovenox discussed the treatment of choice. Patient's Lovenox has previously been held secondary to GI bleed. However during hospitalization patient's H&H has been stable. She has been followed by colorectal surgeon did not recommend any further surgical treatments. Patient has been restarted on her Lovenox inpatient. - Lovenox 0.5 mg/kg every 12 hours. Will increase dose to 0.7 or 0.8 mg/kg every 12 hours if H&H continues to remain stable. HLD - Triglycerides 284, cholesterol 295, LDL 202, HDL 36.4 - ASCVD10 year risk 15.3%, recommend moderate to high intensity statin - Lipitor 40 mg daily Case management - consult for placement if cleared by psychiatry - Patient agreed to be placed back on her assisted facility for rehabilitation and possibly long-term care. Awaiting for insurance approval. DVT prop IVC filter, Lovenox 0.5 mg/kg every 12 hours Full code Stable from Hospitalist standpoint. Medically cleared for transfer back to assisted rehabilitation facility. Written by Kassandra Roy, acting as scribe for Dr. Arce on 11/07/16 at 14:59. All or portions of this note were transcribed by scribe Kassandra Roy. I, Dr. Kaushik Arce personally performed the history, physical exam, and medical decision making; and confirmed the accuracy of the information in the transcribed note. Authenticated by Dr. Kaushik Arce on 11/07/16 at 15:27. Kassandra Schaffer Nov 07, 2016 12:41 Kaushik Arce MD Nov 07, 2016 15:27
[2016-11-07] MEDS ORDERED: SENN1TAB PO (13:07)
[2016-11-07] MEDS ORDERED: DEXA4TAB PO ×2 (13:07)
[2016-11-07] MEDS ORDERED: FURO20TA PO (13:07)
[2016-11-07] MEDS ORDERED: POTA-163 PO (13:07)
[2016-11-07] MEDS ORDERED: LEVE500 PO ×2 (13:07)
[2016-11-07] MEDS ORDERED: CARV6.25 PO ×2 (13:07)
[2016-11-07] MEDS ORDERED: ENOX60P SQ ×2 (13:07)
== END 2016-11-07 18:55 | disposition home or self-care (01) | DRG 881 ==
LOC: H4EA 15:00
PROVIDERS: ADMIT Psychiatry & Neurology Psychiatry; ATTEND Psychiatry & Neurology Psychiatry
DX: F32.9 Major depressive disorder, single episode, unspecified (principal); I26.99 Other pulmonary embolism without acute cor pulmonale; C71.9 Malignant neoplasm of brain, unspecified; D64.9 Anemia, unspecified; I10 Essential (primary) hypertension; S61.512A Laceration without foreign body of left wrist, initial encounter; I42.9 Cardiomyopathy, unspecified; F43.21 Adjustment disorder with depressed mood; E78.5 Hyperlipidemia, unspecified; I48.91 Unspecified atrial fibrillation; J44.9 Chronic obstructive pulmonary disease, unspecified; X78.1XXA Intentional self-harm by knife, initial encounter; Y92.239 Unspecified place in hospital as the place of occurrence of the external cause
CPT/HCPCS: 80048; 80061; 83036; J1650; J8540